=== PATIENT | male | born 1945 | race Caucasian/White ===

== ENCOUNTER 2016-08-30 19:49 | Inpatient (IN) | payer OTHER, MEDICAID ==
[~2016-08-30] VITALS: Ht 162.6 cm; Wt 56.1 kg
[~2016-08-30 19:49] MED LIST: CANA1TAB2 PO; ESOM40CA PO; LEVO5TAB10 PO; LIDO5OI35 TP; NASO17 NASAL; SUCR1TAB56 PO; ZOF8 PO
[2016-08-30] MEDS ORDERED: SODIUM CHLORIDE 0.9% 1L BAG IV* STA (22:16)
[2016-08-30] MEDS ORDERED: CEFEPIME 2GM/50 ML (PMX) 50 ML IVPB STA (22:16)
[2016-08-30] MEDS ORDERED: ONDANSETRON 4 MG INJ IV STA (22:16)
[2016-08-30] MEDS ORDERED: VANCOMYCIN 1 GM (PMX) 250 ML IVPB ONE (22:30)
[2016-08-30 22:48] VITALS: TEMP 99.8
[2016-08-30 22:59] LABS: ADD UMIC YES; URINE BILIRUBIN (Dip) NEGATIVE (NEGATIVE); URINE BLOOD (Dip) 2+ (NEGATIVE); URINE COLOR LT. YELLOW (YELLOW); URINE GLUCOSE (Dip) >=1000 % (NEGATIVE); URINE KETONES (Dip) NEGATIVE (NEGATIVE); URINE LEUKOCYTE ESTERASE (Dip) NEGATIVE (NEGATIVE); URINE NITRITE (Dip) NEGATIVE (NEGATIVE); URINE TOTAL PROTEIN (Dip) 1+ (NEGATIVE); URINE UROBILINOGEN (Dip) 0.2 E.U./dL (0.1-1.0)
[2016-08-30 23:06] LABS: ALBUMIN 3.6 g/dl (3.3-4.9)
[2016-08-30 23:07] LABS: CHLORIDE 92 mmol/L (97-110); POTASSIUM 4.4 mmol/L (3.5-5.1); SODIUM 129 mmol/L (135-144)
[2016-08-30 23:09] LABS: ANION GAP 18 (8-16); BILIRUBIN,INDIRECT 0.6 mg/dl (0-1.1); BILIRUBIN,TOTAL 0.6 mg/dl (0.2-1.3); CARBON DIOXIDE 23 mmol/L (21-31); INR 1.27; PT RATIO 1.3
[2016-08-30 23:10] LABS: ALANINE AMINOTRANSFERASE 32 IU/L (13-69); ALKALINE PHOSPHATASE 115 IU/L (42-121); ASPARTATE AMINO TRANSFERASE 38 IU/L (15-46); BLOOD UREA NITROGEN 22 mg/dl (7-20); CALCIUM 8.4 mg/dl (8.4-10.2); GLUCOSE 392 mg/dl (70-220); HEMATOCRIT 22.8 % (42.0-52.0); MEAN CORPUSCULAR HEMOGLOBIN 24.3 pg (29.0-33.0); MEAN CORPUSCULAR HGB CONC 30.7 g/dl (32.0-37.0); MEAN CORPUSCULAR VOLUME 79.2 fl (82.0-101.0); RED BLOOD COUNT 2.88 10^6/ul (4.70-6.10); RED CELL DISTRIBUTION WIDTH 26.1 % (11.5-14.5); UNCORRECTED WBC 12.2 10^3/ul (4.8-10.8)
[2016-08-30 23:12] LABS: SQUAMOUS EPITHELIAL CELL,UR OCCASIONAL
[2016-08-30 23:13] LABS: ALBUMIN/GLOBULIN RATIO 0.81
--- NOTE | 2016-08-30 23:18 | RADRPT ---
PROCEDURE: XR Chest. CLINICAL INDICATION: Shortness of breath. TECHNIQUE: Single frontal view. COMPARISON: 12/18/2015. FINDINGS: There is chronic bilateral interstitial pulmonary disease as seen on 12/18/2015. There is new atele ctasis at the lung bases. The heart is mildly enlarged. There is no pleural effusion. There is no pneumothorax. IMPRESSION: 1. Chronic bilateral interstitial pulmonary disease. 2. New bibasilar atelectasis. 3. Cardiomegaly. RPTAT: QQ .Duc Whitt MD, MD Date Time Electronically viewed and signed by .Duc Whitt MD, MD on 08/30/2016 23:18 .R/
[2016-08-30 23:22] LABS: TROPONIN-I < 0.012 ng/ml (0.00-0.12)
[2016-08-30 23:47] LABS: CONDITION 1; LH ANALYZER COMMENTS 1; MEAN PLATELET VOLUME 7.5 fl (7.4-10.4); SUSPECT 1
[2016-08-30 23:50] LABS: PLATELET COUNT 22 10^3/UL (140-440)
[2016-08-31] VITALS (12 sets, daily range): BP systolic 102–138; BP diastolic 51–63; PULSE 68–105; RESP 15–88; Ht 162.6 cm; Wt 56.1 kg
[2016-08-31] MEDS ORDERED: FUROSEMIDE 40 MG INJ IV STA (00:25)
[2016-08-31] MEDS ORDERED: ONDANSETRON 4 MG INJ IV PRN (01:00)
[2016-08-31] MEDS ORDERED: ACETAMINOPHEN 325 MG TAB PO PRN (01:00)
[2016-08-31] MEDS ORDERED: NACL 0.9% 3 ML SYG IV SCH (01:30)
[2016-08-31] MEDS ORDERED: ONDANSETRON 4 MG TAB PO PRN (01:30)
[2016-08-31] MEDS ORDERED: GLUCAGON 1 MG INJ IM PRN (02:00)
[2016-08-31] MEDS ORDERED: GLUCOSE GEL 15 GRAM TUBE PO PRN ×2 (02:00)
[2016-08-31] MEDS ORDERED: GLUCOSE GEL 15 GRAM TUBE BUCCAL PRN (02:00)
[2016-08-31] MEDS ORDERED: DEXTROSE 50% 50 ML SYRINGE IV PRN ×2 (02:00)
[2016-08-31] MEDS ORDERED: FUROSEMIDE 20 MG INJ IV ONE (08:00)
[2016-08-31] MEDS ORDERED: FLUTICASONE 0.05% 16 GM NAS SPRAY NASAL SCH (09:00)
[2016-08-31] MEDS ORDERED: NON-FORMULARY/PATIENT OWN MED (Mometasone Furoate* (Nasonex*) 1 SPRAY) NASAL SCH (09:00)
[2016-08-31] MEDS: SUCRALFATE 1 GM TAB PO SCH ×4 (09:14→20:38)
[2016-08-31] MEDS: FLUTICASONE 0.05% 16 GM NAS SPRAY NASAL SCH (09:16)
[2016-08-31] MEDS: LIDOCAINE 5% 35 GM OINT TOP SCH ×3 (09:18→20:39)
--- NOTE | 2016-08-31 10:20 | HP ---
Date/Time of Note Date/Time of Note DATE: 08/31/16 TIME: 10:15 Assessment/Plan VTE Prophylaxis VTE Prophylaxis Intervention: SCD's Lines/Catheters Urinary Cath still in place: No Assessment/Plan Assessment/Plan [facility] 1. 71-year-old man, well-known to me from previous hospitalization, who presented with two days of nausea, emesis, fever, dizziness and dehydration. He had a similar presentation with symptomatic anemia two months ago, attributable to his known chronic myelomonocytic leukemia, and he has had multiple episodes of similar severe anemia presentations requiring transfusion. Labs today showed severe thrombocytopenia (22k/ul), but without active bleeding. * Transfused today with the first of two units of packed red blood cells, with 20 mg of Lasix in between the two units. 2. Diabetes mellitus, with associated neuropathy manifest by numbness in both feet. Previous clinical suspicion for diabetic gastroparesis. He has moderate hyperglycemia this time, for reasons unclear. No solis source of infection identified, and he has no fever or leukocytosis. * Continue metformin * Hemoglobin A1c pending * Lantus insulin this morning 12-units, repeat at bedtime tonight once record of sugars is available * Preprandial Novolog 5-units to start * Zofran as needed 3. Mild hyponatremia (129) * Normal saline rehydration 4. Chronic benign positional vertigo. * Meclizine PRN 5. Gastroesophageal reflux disease. * Protonix * Cepachol lozenges 6. Prophylaxis. Sequential compression devices to lower extremity for DVT prevention 7. DISPOSITION: Place under medical/surgical observation for transfusion. Discharge planning for tomorrow. Flex Verde MD PhD [phone] HPI/ROS Admit Date/Time Admit Date/Time Aug 31, 2016 at 00:38 Hx of Present Illness DATE OF ADMISSION: 08/30/2016 PRIMARY CARE PHYSICIAN: Dr. Rona Castro. PRIMARY ONCOLOGIST: Иван Gallegos MD CHIEF COMPLAINT ON ADMISSION: Abnormal hemoglobin and dizziness. HISTORY OF PRESENT ILLNESS: 71-year-old man with diabetes and chronic myelomonocytic leukemia under active treatment who presented last night for dizziness. He has had multiple similar presentations for severe anemia, most recently in May and June. For the past two days he has had difficultly eating or drinking, with nausea and emesis. During his last hospitalization, there was a clinical suspicion of diabetic gastroparesis. In early June he was admitted with similar symptoms and given 3 units of packed red blood cells with hemoglobin up to 10 at the time of discharge home. He complained of sore throat today, with some difficulty swallowing but no coughing or choking. He denied any headache, visual change, chest pain, persistent nausea, or abdominal pain. ALLERGIES: NO KNOWN ALLERGIES. PAST MEDICAL HISTORY: 1. Chronic myelomonocytic leukemia, currently on chemotherapy. 2. Pancytopenia and anemia secondary to #1. 3. Diabetes mellitus. 4. Diabetic neuropathy. 5. Diabetic gastroparesis. 6. Chronic benign positional vertigo which is exacerbated when he is severely anemic. 7. Hypertension. PAST SURGICAL HISTORY: None except for bone marrow biopsy four months ago. SOCIAL HISTORY: The patient lives with family. No previous smoking history, or recent significant drinking. OUTPATIENT MEDICATIONS: 1. Nasonex 1 spray to each nostril b.i.d. 2. Nexium 40 mg p.o. daily. 3. Zofran 8 mg p.o. t.i.d. as needed for nausea, vomiting. 4. Carafate 1 g p.o. q.a.c. and at bedtime. 5. Invokamet one tab p.o. twice daily. 6. Lidocaine ointment t.i.d. as needed. 7. Zyzal 5 mg p.o. daily. ROS As above PMH/Family/Social Social History Smoking Status: Never smoker Exam/Review of Systems Vital Signs Vitals Vital Signs Date Time Temp Pulse Resp B/P Pulse Ox O2 Delivery O2 Flow Rate FiO2 08/31/16 08:09 68 08/31/16 04:00 99.0 08/31/16 03:55 15 102/52 98 08/31/16 02:47 Nasal Cannula 2.0 Intake and Output 08/30/16 08/30/16 08/31/16 15:00 23:00 07:00 Intake Total 250 ml Output Total 1600 ml Balance -1350 ml Exam Exam GENERAL: He appeared uncomfortable, serious, but breathing comfortably on room air. HEENT: Pupils were equal, round and reactive to light. Extraocular muscles are intact. Anicteric sclerae, with no scleritis/conjunctivitis. NECK: No JVD, no thyromegaly. HEART: Regular rate and rhythm. LUNGS: Clear to auscultation bilaterally. ABDOMEN: Soft, non-tender, non-distended. Bowel sounds are present. EXTREMITIES: No edema, clubbing or cyanosis. NEUROLOGIC: He was alert and oriented x3, cranial nerves, motor and light touch sensation all intact. Toes downgoing. SKIN: No rash evident Labs Result Diagram: 08/30/16222908/30/162229 Medications Medications Current Medications Lidocaine (Lidocaine 5% Oint) 1 applic TID TOP Last administered on 08/31/16 09 :18; Admin Dose 1 APPLIC; Start 08/31/16 at 09:00 Ondansetron HCl (Zofran Tab) 8 mg TID PRN PO NAUSEA AND/OR VOMITING; Start 08/31 at 01:30 Miscellaneous Information 1 ea NOTE XX ; Start 08/31/16 at 02:00 Glucose (Glutose) 15 gm Q15M PRN PO DECREASED GLUCOSE; Start 08/31/16 at 02:00 Glucose (Glutose) 22.5 gm Q15M PRN PO DECREASED GLUCOSE; Start 08/31/16 at 02:00 Dextrose (D50w Syringe) 25 ml Q15M PRN IV DECREASED GLUCOSE; Start 08/31/16 at 02:00 Dextrose (D50w Syringe) 50 ml Q15M PRN IV DECREASED GLUCOSE; Start 08/31/16 at 02:00 Glucagon (Glucagen) 1 mg Q15M PRN IM DECREASED GLUCOSE; Start 08/31/16 at 02:00 Glucose (Glutose) 15 gm Q15M PRN BUCCAL DECREASED GLUCOSE; Start 08/31/16 at 02: 00 Fluticasone Propionate (Flonase 0.05% Nasal) 2 spray DAILY NASAL Last administered on 08/31/16 09:16; Admin Dose 2 SPRAY; Start 08/31/16 at 09:00 Copies To: CC: ИВАН GALLEGOS MD, JOHN P. M.D. Aug 31, 2016 10:20 SYDNIE VERDE M.D. Aug 31, 2016 10:20
[2016-08-31] MEDS: ACCUCHECK XX SCH (23:36)
[2016-09-01] VITALS (12 sets, daily range): BP systolic 111–127; BP diastolic 58–62; PULSE 62–83; RESP 16–19
[2016-09-01] MEDS: INSULIN GLARGINE [LANtus] 3 ML PEN SC SCH ×2 (00:27→20:38)
[2016-09-01] MEDS: ACCUCHECK AT 2AM (Patients on SS coverage) XX SCH (01:00)
[2016-09-01 06:33] LABS: HEMATOCRIT 23.6 % (42.0-52.0); HEMOGLOBIN 7.6 g/dl (14.0-18.0); MEAN CORPUSCULAR HEMOGLOBIN 25.6 pg (29.0-33.0); MEAN CORPUSCULAR VOLUME 80.1 fl (82.0-101.0); RED BLOOD COUNT 2.95 10^6/ul (4.70-6.10); RED CELL DISTRIBUTION WIDTH 22.7 % (11.5-14.5); UNCORRECTED WBC 9.6 10^3/ul (4.8-10.8); WHITE BLOOD COUNT 9.6 10^3/ul (4.8-10.8)
[2016-09-01 06:40] LABS: MEAN PLATELET VOLUME 7.6 fl (7.4-10.4); PLATELET COUNT 15 10^3/UL (140-440)
[2016-09-01 06:41] LABS: CONDITION 1; LH ANALYZER COMMENTS 1; POTASSIUM 3.8 mmol/L (3.5-5.1)
[2016-09-01 06:44] LABS: CALCIUM 7.7 mg/dl (8.4-10.2); CREATININE 0.9 mg/dl (0.61-1.24)
[2016-09-01] MEDS: SUCRALFATE 1 GM TAB PO SCH ×4 (08:17→20:33)
[2016-09-01] MEDS: FLUTICASONE 0.05% 16 GM NAS SPRAY NASAL SCH (08:26)
[2016-09-01] MEDS: INSULIN ASPART [NOVOLOG] 3 ML PEN SC SCH ×3 (08:26→18:14)
[2016-09-01] MEDS: ACCUCHECK XX SCH ×4 (08:27→21:00)
[2016-09-01] MEDS: LIDOCAINE 5% 35 GM OINT TOP SCH ×3 (09:43→21:00)
[2016-09-01 10:47] LABS: BASOPHIL # 0.1 10^3/ul (0.0-0.1); LYMPHOCYTES # 2.5 10^3/ul (0.8-2.9); MONOCYTE # 3.5 10^3/ul (0.3-0.9); NEUTROPHIL # 1.3 10^3/ul (1.6-7.5)
[2016-09-01] MEDS: DIPHENHYDRAMINE 25 MG CAP PO PRN (11:25)
[2016-09-01] MEDS: ACETAMINOPHEN 325 MG TAB PO PRN (11:25)
--- NOTE | 2016-09-01 11:50 | PN ---
Date/Time of Note Date/Time of Note DATE: 09/01/16 TIME: 11:20 Assessment/Plan VTE Prophylaxis VTE Prophylaxis Intervention: SCD's Lines/Catheters Urinary Cath still in place: No Assessment/Plan Assessment/Plan 71-year-old man: 1. 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 Hb still low at 7.6 this AM, patient to get 2 additional units of pRBC 2. Thrombocytopenia also in setting of CMML: no acute bleeding, plts @ 15K today , would not transfuse unless <10K or acute bleeding. r/o hemolysis 3. Diabetes mellitus, with associated neuropathy manifest by numbness in both feet. Previous clinical suspicion for diabetic gastroparesis. He has moderate hyperglycemia this time, for reasons unclear. No solis source of infection identified, and he has no fever or leukocytosis. A1c Continue metformin SSI Zofran as needed 3. Mild hyponatremia: resolving up to 133, on NS 4. Chronic benign positional vertigo. Continue Meclizine PRN 5. Gastroesophageal reflux disease. Continue Protonix 6. URI with cough and sore throat: CXR stable on admission, symptomatic treatment Prophylaxis. Sequential compression devices to lower extremity for DVT prevention, PPI for GI ppx DISPOSITION: Discharge planning today after transfusion if stable Subjective 24 Hr Interval Summary Free Text/Dictation Patient doing OK Complaining of RUSSELL and sore throat from coughing Afebrile and getting pRBC this AM Exam/Review of Systems Vital Signs Vitals Vital Signs Date Time Temp Pulse Resp B/P Pulse Ox O2 Delivery O2 Flow Rate FiO2 09/01/16 08:17 83 09/01/16 08:00 Nasal Cannula 2.0 09/01/16 07:45 98.7 19 121/60 91 Intake and Output 08/31/16 08/31/16 09/01/16 15:00 23:00 07:00 Intake Total 650 ml 500 ml Output Total 950 ml 850 ml Balance -300 ml -350 ml Exam Constitutional: alert, oriented, other (mexican speaking ) Respiratory: clear to auscultation, normal air movement Cardiovascular: nl pulses, regular rate and rhythm Gastrointestinal: non-tender, soft Musculoskeletal: nl extremities to inspection Extremities: normal pulses, other (no edema, clubbing or cyanosis ) Neurological: SENIOR GENETIC COUNSELOR II-XII intact, nl mental status, nl speech, nl strength Results Result Diagram: 09/01/16 0550 09/01/16 0550 Results 24 hrs Laboratory Tests Test 08/31/16 12:26 08/31/16 15:15 08/31/16 23:30 09/01/16 05:50 Bedside Glucose 373 H 263 H Lactic Acid Level 1.2 Anion Gap 13 Basophils # 0.1 Basophils % 1.0 Blood Morphology Comment Blood Urea Nitrogen 17 Calcium Level 7.7 L Carbon Dioxide Level 26 Chloride Level 98 Creatinine 0.90 Differential Comment MANUAL DIFF Glucose Level 117 # Hematocrit 23.6 L Hemoglobin 7.6 L Lymphocytes # 2.5 Lymphocytes % 26.0 Mean Corpuscular Hemoglobin 25.6 L Mean Corpuscular Hemoglobin Concent 32.0 Mean Corpuscular Volume 80.1 L Mean Platelet Volume 7.6 Monocytes # 3.5 H Monocytes % 36.0 H Neutrophils # 1.3 L Neutrophils % 14.0 L Nucleated Red Blood Cells % 1.0 H Platelet Count 15 #*L Potassium Level 3.8 Reactive Lymphocytes % 23.0 Red Blood Count 2.95 L Red Cell Distribution Width 22.7 H Sodium Level 133 L White Blood Count 9.6 # Test 09/01/16 07:54 Bedside Glucose 114 Medications Medications Current Medications Lidocaine (Lidocaine 5% Oint) 1 applic TID TOP Last administered on 09/01/16t 09 :43; Admin Dose 1 APPLIC; Start 08/31/16 at 09:00 Miscellaneous Information 1 ea NOTE XX ; Start 08/31/16 at 02:00 Glucose (Glutose) 15 gm Q15M PRN PO DECREASED GLUCOSE; Start 08/31/16 at 02:00 Glucose (Glutose) 22.5 gm Q15M PRN PO DECREASED GLUCOSE; Start 08/31/16 at 02:00 Dextrose (D50w Syringe) 25 ml Q15M PRN IV DECREASED GLUCOSE; Start 08/31/16 at 02:00 Dextrose (D50w Syringe) 50 ml Q15M PRN IV DECREASED GLUCOSE; Start 08/31/16 at 02:00 Glucagon (Glucagen) 1 mg Q15M PRN IM DECREASED GLUCOSE; Start 08/31/16 at 02:00 Glucose (Glutose) 15 gm Q15M PRN BUCCAL DECREASED GLUCOSE; Start 08/31/16 at 02: 00 Fluticasone Propionate (Flonase 0.05% Nasal) 2 spray DAILY NASAL Last administered on 09/01/16 08:26; Admin Dose 2 SPRAY; Start 08/31/16 at 09:00 Diagnostic Test (Pha) (Accucheck) 1 ea 02 XX ; Start 09/01/16 at 02:00 Insulin Glargine (Lantus) 18 unit QHS SC Last administered on 09/01/16 00:27; Admin Dose 18 UNIT; Start 09/01/16 at 00:00 Ondansetron HCl (Zofran Inj) 4 mg Q6H PRN IV NAUSEA AND/OR VOMITING; Start 09/01 at 11:30 Acetaminophen (Tylenol Tab) 650 mg Q6H PRN PO PAIN AND OR ELEVATED TEMP; Start 09/01/16 at 11:30 Diphenhydramine HCl (Benadryl) 25 mg Q6H PRN PO ITCHING; Start 09/01/16 at 11:30 TAM ROSE Sep 01, 2016 11:32
--- NOTE | 2016-09-01 11:52 | PDOCDIS ---
Discharge Instructions CONDITION Patient Condition: Stable HOME CARE INSTRUCTIONS: Special Diet: CARB CONTROLLED ACTIVITY: Activity Restrictions: Slowly Increase Activity FOLLOW UP/APPOINTMENTS Appointments Follow up with PCP in 1 week Follow up with Oncology within 1 to 2 weeks TAM ROSE Sep 01, 2016 11:52
[2016-09-01 19:35] LABS: ALBUMIN 2.9 g/dl (3.3-4.9)
[2016-09-01 19:37] LABS: BILIRUBIN,INDIRECT 1.3 mg/dl (0-1.1); BILIRUBIN,TOTAL 1.3 mg/dl (0.2-1.3)
[2016-09-01 22:22] LABS: FIBRIN SPLIT PRODUCT <10 ug/ml (<10)
[2016-09-02] VITALS (10 sets, daily range): BP systolic 114–127; BP diastolic 60–75; PULSE 62–85; RESP 16–20
[2016-09-02] MEDS: ACCUCHECK AT 2AM (Patients on SS coverage) XX SCH (02:00)
[2016-09-02 06:56] LABS: HEMATOCRIT 30.9 % (42.0-52.0); HEMOGLOBIN 9.9 g/dl (14.0-18.0); MEAN CORPUSCULAR HEMOGLOBIN 26.2 pg (29.0-33.0); MEAN CORPUSCULAR HGB CONC 32.1 g/dl (32.0-37.0); MEAN CORPUSCULAR VOLUME 81.7 fl (82.0-101.0); RED BLOOD COUNT 3.78 10^6/ul (4.70-6.10); RED CELL DISTRIBUTION WIDTH 20.2 % (11.5-14.5); UNCORRECTED WBC 11.3 10^3/ul (4.8-10.8); WHITE BLOOD COUNT 11.3 10^3/ul (4.8-10.8)
[2016-09-02 07:11] LABS: MEAN PLATELET VOLUME 7.9 fl (7.4-10.4)
[2016-09-02 07:12] LABS: CONDITION 1; LH ANALYZER COMMENTS 1; SUSPECT 1
[2016-09-02 07:14] LABS: PLATELET COUNT 13 10^3/UL (140-440)
[2016-09-02 07:15] LABS: WHITE BLOOD COUNT 12.2 10^3/ul (4.8-10.8)
[2016-09-02] MEDS: SUCRALFATE 1 GM TAB PO SCH ×4 (08:00→20:57)
[2016-09-02] MEDS: ACCUCHECK XX SCH ×4 (08:04→21:00)
[2016-09-02] MEDS: FLUTICASONE 0.05% 16 GM NAS SPRAY NASAL SCH (08:41)
[2016-09-02 09:44] LABS: BASOPHIL # 0.1 10^3/ul (0.0-0.1); LYMPHOCYTES # 2.4 10^3/ul (0.8-2.9); MONOCYTE # 3.7 10^3/ul (0.3-0.9); MYELOCYTES # 0.1; NEUTROPHIL # 2.1 10^3/ul (1.6-7.5)
[2016-09-02 09:45] LABS: PLATELET ESTIMATE PLT APPEAR DECREASED
[2016-09-02] MEDS ORDERED: AZITHROMYCIN 250 MG TAB PO ONE (10:00)
[2016-09-02] MEDS: LIDOCAINE 5% 35 GM OINT TOP SCH ×3 (10:25→21:05)
[2016-09-02] MEDS: INSULIN ASPART [NOVOLOG] 3 ML PEN SC SCH ×3 (10:30→18:00)
[2016-09-02] MEDS: ACETAMINOPHEN 325 MG TAB PO PRN ×2 (11:06→20:58)
--- NOTE | 2016-09-02 11:33 | PN ---
Date/Time of Note Date/Time of Note DATE: 09/02/16 TIME: 11:23 Assessment/Plan VTE Prophylaxis VTE Prophylaxis Intervention: SCD's Lines/Catheters Urinary Cath still in place: No Assessment/Plan Assessment/Plan 71-year-old man: 1. 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 Hb now up to 9.4 post 4 units pRBC but patent noted to be severely thrombocytopenic which is new and 17% blast on peripheral smear .. Dr Ruiz consulted 2. Thrombocytopenia also in setting of CMML but also now finding of 17% blast on peripheral smear No acute bleeding but ongoing RUSSELL with plts @ 13K today, Check stat CT head and transfuse platelets if needed. R/o hemolysis and Hematology c/s pending 3. Diabetes mellitus, with associated neuropathy manifest by numbness in both feet. Previous clinical suspicion for diabetic gastroparesis. He has moderate hyperglycemia this time, for reasons unclear. No solis source of infection identified, and he has no fever or leukocytosis. A1c Continue Lantus and SSI, will resume Metformin as patient tolerating po well Zofran as needed 3. Mild hyponatremia: resolving up to 133, on NS, check labs in AM 4. Chronic benign positional vertigo. Continue Meclizine PRN 5. Gastroesophageal reflux disease. Continue Protonix 6. URI with cough and sore throat: CXR stable on admission, symptomatic treatment , Azithromycin while awaiting CT head results Prophylaxis. Sequential compression devices to lower extremity for DVT prevention, PPI for GI ppx DISPOSITION: CT head stat and Hematology consult pending Subjective 24 Hr Interval Summary Free Text/Dictation Patient complaining of RUSSELL still and given Low platelets, Ct head pending and will also get [address] Ruiz consulted as patient with now severe thrombocytopenia on this admission and 17% blasts noted on peripheral smear today Exam/Review of Systems Vital Signs Vitals Vital Signs Date Time Temp Pulse Resp B/P Pulse Ox O2 Delivery O2 Flow Rate FiO2 09/02/16 08:05 71 09/02/16 08:00 Nasal Cannula 2.0 09/02/16 03:40 99.6 18 118/60 95 Intake and Output 09/01/16 09/01/16 09/02/16 15:00 23:00 07:00 Intake Total 600 ml 850 ml Output Total 950 ml 1100 ml Balance -350 ml -250 ml Exam Constitutional: alert, oriented, well developed Respiratory: clear to auscultation, normal air movement Cardiovascular: nl pulses, regular rate and rhythm Gastrointestinal: non-tender, soft Musculoskeletal: nl extremities to inspection, other (no edema, clubbing or cyanosis ) Extremities: normal pulses Neurological: DIRECTOR OPERATIONS II-XII intact, nl mental status, nl speech, other ( generalised weakness ) Results Result Diagram: 09/02/16 0607 09/01/16 0550 Results 24 hrs Laboratory Tests Test 09/01/16 12:17 09/01/16 18:04 09/01/16 19:15 09/01/16 20:32 Bedside Glucose 153 123 204 Alanine Aminotransferase (ALT/SGPT) 47 Albumin 2.9 L Alkaline Phosphatase 101 Aspartate Amino Transf (AST/SGOT) 64 #H Direct Bilirubin 0.00 Fibrinogen 631.0 H Indirect Bilirubin 1.3 H Plasma Fibrin Degradation Products <10 Total Bilirubin 1.3 Total Protein 7.0 # Test 09/02/16 06:07 09/02/16 08:02 09/02/16 10:28 Band Neutrophils % 8.0 H Basophils # 0.1 Basophils % 1.0 Blast Cells % 17.0 H Blastocytes # 1.9 Blood Morphology Comment Eosinophils # Eosinophils % Hematocrit 30.9 #L Hemoglobin 9.9 #L Lymphocytes # 2.4 Lymphocytes % 21.0 Mean Corpuscular Hemoglobin 26.2 L Mean Corpuscular Hemoglobin Concent 32.1 Mean Corpuscular Volume 81.7 L Mean Platelet Volume 7.9 Monocytes # 3.7 H Monocytes % 33.0 H Myelocytes # 0.1 Myelocytes % 1.0 H Neutrophils # 2.1 Neutrophils % 19.0 L Nucleated Red Blood Cells # Nucleated Red Blood Cells % 8.0 H Platelet Count 13 *L Platelet Estimate PLT APPEAR DECREASED Red Blood Count 3.78 #L Red Cell Distribution Width 20.2 H White Blood Count 11.3 H Bedside Glucose 189 288 H Medications Medications Current Medications Lidocaine (Lidocaine 5% Oint) 1 applic TID TOP Last administered on 09/02/16t 10:25; Admin Dose 1 APPLIC; Start 08/31/16 at 09:00 Miscellaneous Information 1 ea NOTE XX ; Start 08/31/16 at 02:00 Glucose (Glutose) 15 gm Q15M PRN PO DECREASED GLUCOSE; Start 08/31/16 at 02:00 Glucose (Glutose) 22.5 gm Q15M PRN PO DECREASED GLUCOSE; Start 08/31/16 at 02:00 Dextrose (D50w Syringe) 25 ml Q15M PRN IV DECREASED GLUCOSE; Start 08/31/16 at 02:00 Dextrose (D50w Syringe) 50 ml Q15M PRN IV DECREASED GLUCOSE; Start 08/31/16 at 02:00 Glucagon (Glucagen) 1 mg Q15M PRN IM DECREASED GLUCOSE; Start 08/31/16 at 02:00 Glucose (Glutose) 15 gm Q15M PRN BUCCAL DECREASED GLUCOSE; Start 08/31/16 at 02: 00 Fluticasone Propionate (Flonase 0.05% Nasal) 2 spray DAILY NASAL Last administered on 09/02/16 08:41; Admin Dose 2 SPRAY; Start 08/31/16 at 09:00 Diagnostic Test (Pha) (Accucheck) 1 ea 02 XX ; Start 09/01/16 at 02:00 Insulin Glargine (Lantus) 18 unit QHS SC Last administered on 09/01/16 20:38; Admin Dose 18 UNIT; Start 09/01/16 at 00:00 Ondansetron HCl (Zofran Inj) 4 mg Q6H PRN IV NAUSEA AND/OR VOMITING; Start 09/01 at 11:30 Acetaminophen (Tylenol Tab) 650 mg Q6H PRN PO PAIN AND OR ELEVATED TEMP Last administered on 09/02/16 11:06; Admin Dose 650 MG; Start 09/01/16 at 11:30 Diphenhydramine HCl (Benadryl) 25 mg Q6H PRN PO ITCHING Last administered on 11:25; Admin Dose 25 MG; Start 09/01/16 at 11:30 TAM ROSE Sep 02, 2016 11:33
--- NOTE | 2016-09-02 13:17 | RADRPT ---
PROCEDURE: CT Head without. CLINICAL INDICATION: Headache, low platelets. Evaluate for possible intracranial hemorrhage. TECHNIQUE: The study was performed utilizing a multi-slice, multidetector CT scanner. Direct spira l 1 mm axial sections were obtained through the head without the use of intravenous contrast materia l. Coronal and sagittal reformats were obtained. The images were reviewed on a PACS workstation. RADIATION DOSE: CTDIvol: 44.9 mGyDLP: 630.2 mGy-cm COMPARISON: 12/18/2015 FINDINGS: There is no intracranial hemorrhage, extra-axial fluid collection, mass lesion, midline shift or hyd rocephalus. There is mild prominence of the cerebral sulci, lateral and third ventricles. There is mild periventricular and subcortical white matter hypodensity. There is mild arteriosclerotic calc ification of the parasellar internal carotid arteries. The armas-white matter differentiation is pre served. The basal cisterns are patent. The midline structures are intact. There is bilateral apha linda. There is pneumatization bilateral petrous apices without evidence of inflammatory changes, nor mal variant. The orbits, calvarium and extracranial soft tissues are normal in appearance. The visu alized paranasal sinuses, mastoid air cells and middle ear cavities are normally aerated. IMPRESSION: 1. No acute intracranial abnormality. No intracranial hemorrhage, extra-axial fluid collection, ma ss lesion or hydrocephalous. 2. Mild peripheral and central cerebral volume loss. 3. Mild periventricular and subcortical white matter hypodensity, likely related to chronic microan giopathic changes. RPTAT: HGAS .Tray Vazquez MD, MD Date Time Electronically viewed and signed by .Tray Vazquez MD, MD on 09/02/2016 13:17 .S/
[2016-09-02] MEDS ORDERED: SOD CHLORIDE 0.9% 250 ML IV* ONE (13:59)
[2016-09-02] MEDS: GUAIFENESIN/DM 5ML CUP PO PRN ×2 (14:35→21:00)
--- NOTE | 2016-09-02 14:49 | CONS ---
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 I spoke with Dr. Gallegos patient's primary oncologist who is aware of patient's peripheral blood findings. For now the plan is to attempt to resume Vidaza treatment as an out patient and to transfuse as needed. Problems: Additional Assessment/Plan -will transfuse 1 units of platelets -check flow cytometry on peripheral blood -pt to resume chemotherapy with Vidaza as an outpatient Approximately 40 min were spent at patient's bedside and in coordination of his care Consultation Date/Type/Reason Admit Date/Time Aug 31, 2016 at 00:38 Date of Consultation: Sep 02, 2016 Type of Consultation: Hematology Reason for Consultation CMML Referring Provider: TAM ROSE Hx of Present Illness 71 yo male with a diagnosis of CMML. Pt is currently being treated by Dr. Иван Gallegos and most recently received Vidaza IV therapy last June 2016. Pt is known to have blasts in the peripheral blood given his high risk disease. He is currently transfusion dependant. He now presents with nausea, emesis, fever, dizziness and dehydration. On admission he was found to have a Hg 9 and platelets of 23. Pt has since received 4 units of PRBCs and is to receive 1 units of platelets today. Constitutional: poor po Respiratory: shortness of breath Cardiovascular: no complaints Gastrointestinal: decreased appetite, nausea Genitourinary: no complaints Musculoskeletal: no complaints Skin: no complaints Neurologic: no complaints Past Medical History DM GERD BPV Past Surgical History Past Surgical Hx: no surgical history Family History Significant Family History: no pertinent family hx Social History Alcohol Use: none Smoking Status: Never smoker Drug Use: none Exam/Review of Systems Vital Signs Vitals Vital Signs Date Time Temp Pulse Resp B/P Pulse Ox O2 Delivery O2 Flow Rate FiO2 09/02/16 12:25 85 09/02/16 12:11 97.9 18 114/66 97 09/02/16 08:00 Nasal Cannula 2.0 Intake and Output 09/01/16 09/01/16 09/02/16 15:00 23:00 07:00 Intake Total 600 ml 850 ml Output Total 950 ml 1100 ml Balance -350 ml -250 ml Exam Constitutional: alert Psych: no complaints Head: atraumatic, normocephalic Eyes: nl conjunctiva ENMT: nl external ears & nose Neck: non-tender, supple Respiratory: clear to auscultation, normal air movement Cardiovascular: nl pulses, regular rate and rhythm Gastrointestinal: nl liver, spleen, soft Genitourinary - Male: nl penis Musculoskeletal: nl extremities to inspection, nl gait and stance Extremities: normal pulses Results Result Diagram: 09/02/16 0607 09/01/16 0550 Results 24 hrs Laboratory Tests Test 09/01/16 18:04 09/01/16 19:15 09/01/16 20:32 09/02/16 06:07 Bedside Glucose 123 204 Alanine Aminotransferase (ALT/SGPT) 47 Albumin 2.9 L Alkaline Phosphatase 101 Aspartate Amino Transf (AST/SGOT) 64 #H Direct Bilirubin 0.00 Fibrinogen 631.0 H Indirect Bilirubin 1.3 H Plasma Fibrin Degradation Products <10 Total Bilirubin 1.3 Total Protein 7.0 # Band Neutrophils % 8.0 H Basophils # 0.1 Basophils % 1.0 Blast Cells % 17.0 H Blastocytes # 1.9 Blood Morphology Comment Eosinophils # Eosinophils % Hematocrit 30.9 #L Hemoglobin 9.9 #L Lymphocytes # 2.4 Lymphocytes % 21.0 Mean Corpuscular Hemoglobin 26.2 L Mean Corpuscular Hemoglobin Concent 32.1 Mean Corpuscular Volume 81.7 L Mean Platelet Volume 7.9 Monocytes # 3.7 H Monocytes % 33.0 H Myelocytes # 0.1 Myelocytes % 1.0 H Neutrophils # 2.1 Neutrophils % 19.0 L Nucleated Red Blood Cells # Nucleated Red Blood Cells % 8.0 H Platelet Count 13 *L Platelet Estimate PLT APPEAR DECREASED Red Blood Count 3.78 #L Red Cell Distribution Width 20.2 H White Blood Count 11.3 H Test 09/02/16 08:02 09/02/16 10:28 09/02/16 11:40 Bedside Glucose 189 288 H 239 H Medications Medications Current Medications Lidocaine (Lidocaine 5% Oint) 1 applic TID TOP Last administered on 09/02/16t 10:25; Admin Dose 1 APPLIC; Start 08/31/16 at 09:00 Miscellaneous Information 1 ea NOTE XX ; Start 08/31/16 at 02:00 Glucose (Glutose) 15 gm Q15M PRN PO DECREASED GLUCOSE; Start 08/31/16 at 02:00 Glucose (Glutose) 22.5 gm Q15M PRN PO DECREASED GLUCOSE; Start 08/31/16 at 02:00 Dextrose (D50w Syringe) 25 ml Q15M PRN IV DECREASED GLUCOSE; Start 08/31/16 at 02:00 Dextrose (D50w Syringe) 50 ml Q15M PRN IV DECREASED GLUCOSE; Start 08/31/16 at 02:00 Glucagon (Glucagen) 1 mg Q15M PRN IM DECREASED GLUCOSE; Start 08/31/16 at 02:00 Glucose (Glutose) 15 gm Q15M PRN BUCCAL DECREASED GLUCOSE; Start 08/31/16 at 02: 00 Fluticasone Propionate (Flonase 0.05% Nasal) 2 spray DAILY NASAL Last administered on 09/02/16 08:41; Admin Dose 2 SPRAY; Start 08/31/16 at 09:00 Diagnostic Test (Pha) (Accucheck) 1 ea 02 XX ; Start 09/01/16 at 02:00 Insulin Glargine (Lantus) 18 unit QHS SC Last administered on 09/01/16 20:38; Admin Dose 18 UNIT; Start 09/01/16 at 00:00 Ondansetron HCl (Zofran Inj) 4 mg Q6H PRN IV NAUSEA AND/OR VOMITING; Start 09/01 at 11:30 Acetaminophen (Tylenol Tab) 650 mg Q6H PRN PO PAIN AND OR ELEVATED TEMP Last administered on 09/02/16 11:06; Admin Dose 650 MG; Start 09/01/16 at 11:30 Diphenhydramine HCl (Benadryl) 25 mg Q6H PRN PO ITCHING Last administered on 11:25; Admin Dose 25 MG; Start 09/01/16 at 11:30 Guaifenesin/ Dextromethorphan (Robitussin Dm Liquid Cup) 10 ml Q4H PRN PO COUGH ; Start 09/02/16 at 14:00 MISHA FOREMAN M.D. Sep 02, 2016 14:48
[2016-09-02] MEDS: INSULIN GLARGINE [LANtus] 3 ML PEN SC SCH (21:10)
[2016-09-03] VITALS (10 sets, daily range): BP systolic 120–135; BP diastolic 61–66; PULSE 60–78; RESP 18–20
[2016-09-03] MEDS: ACCUCHECK AT 2AM (Patients on SS coverage) XX SCH (02:00)
[2016-09-03 06:30] LABS: HEMATOCRIT 27.9 % (42.0-52.0); HEMOGLOBIN 8.9 g/dl (14.0-18.0); MEAN CORPUSCULAR HEMOGLOBIN 26.3 pg (29.0-33.0); MEAN CORPUSCULAR HGB CONC 32.1 g/dl (32.0-37.0); MEAN PLATELET VOLUME 7.3 fl (7.4-10.4); PLATELET COUNT 97 10^3/UL (140-440); RED CELL DISTRIBUTION WIDTH 20.3 % (11.5-14.5)
[2016-09-03 06:44] LABS: CONDITION 1; LH ANALYZER COMMENTS 1; SUSPECT 1
[2016-09-03 07:05] LABS: ALBUMIN 2.9 g/dl (3.3-4.9); POTASSIUM 4.1 mmol/L (3.5-5.1)
[2016-09-03 07:07] LABS: CREATININE 0.65 mg/dl (0.61-1.24)
[2016-09-03 07:08] LABS: ALBUMIN/GLOBULIN RATIO 0.72; BILIRUBIN,INDIRECT 0.5 mg/dl (0-1.1); BILIRUBIN,TOTAL 0.5 mg/dl (0.2-1.3); CALCIUM 8.3 mg/dl (8.4-10.2); TOTAL PROTEIN 6.9 g/dl (6.1-8.1)
[2016-09-03 07:11] LABS: MAGNESIUM 2.4 mg/dl (1.7-2.5); PHOSPHORUS 2.9 mg/dl (2.5-4.9)
[2016-09-03] MEDS: INSULIN ASPART [NOVOLOG] 3 ML PEN SC SCH ×3 (07:37→17:18)
[2016-09-03] MEDS: ACCUCHECK XX SCH ×4 (07:37→20:52)
[2016-09-03] MEDS: SUCRALFATE 1 GM TAB PO SCH ×4 (07:37→20:34)
[2016-09-03 07:40] LABS: ANISOCYTOSIS 2+; BASOPHIL # 0.2 10^3/ul (0.0-0.1); HYPOCHROMASIA 2+; LYMPHOCYTES # 2.4 10^3/ul (0.8-2.9); MONOCYTE # 4.6 10^3/ul (0.3-0.9); MYELOCYTES # 0.1; NEUTROPHIL # 1.2 10^3/ul (1.6-7.5)
[2016-09-03] MEDS: LIDOCAINE 5% 35 GM OINT TOP SCH (09:00)
--- NOTE | 2016-09-03 09:09 | CONS ---
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 I spoke with Dr. Gallegos patient's primary oncologist who is aware of patient's peripheral blood findings. For now the plan is to attempt to resume Vidaza treatment as an out patient and to transfuse as needed. Problems: Additional Assessment/Plan -s/p 1 units of platelets 09/02/16 -pending flow cytometry on peripheral blood -will order BMBx to be done to confirm blast count, plan for BMBx to be done tomorrow by IR. ELKINS after midnight -If > 20% blasts, will consider induction chemotherapy with 7+3 vs. vidaza Problems: Consultation Date/Type/Reason Admit Date/Time Aug 31, 2016 at 00:38 Initial Consult Date 09/02/16 Type of Consultation: Hematology/Oncology Referring Provider: TAM ROSE 24 HR Interval Summary Free Text/Dictation Patient continues to have a cough, and complaints of poor appetite. CXR 08/30/16 only shows chronic bilateral interstitial pulmonary disease and bibasilar atelectasis. Exam/Review of Systems Vital Signs Vitals Vital Signs Date Time Temp Pulse Resp B/P Pulse Ox O2 Delivery O2 Flow Rate FiO2 09/03/16 08:08 65 09/03/16 07:38 97.8 18 132/65 98 09/03/16 01:26 Nasal Cannula 2.0 Intake and Output 09/02/16 09/02/16 09/03/16 15:00 23:00 07:00 Intake Total 950 ml 1452 ml Output Total 107 ml 1200 ml Balance 843 ml 252 ml Exam Constitutional: alert Psych: no complaints Head: atraumatic, normocephalic Eyes: nl conjunctiva ENMT: nl external ears & nose Neck: non-tender, supple Respiratory: clear to auscultation, normal air movement Cardiovascular: nl pulses, regular rate and rhythm Gastrointestinal: nl liver, spleen, soft Genitourinary - Male: nl penis Musculoskeletal: nl extremities to inspection, nl gait and stance Extremities: normal pulses Results Result Diagram: 09/03/16 0600 09/03/16 0600 Results 24 hrs Laboratory Tests Test 09/02/16 10:28 09/02/16 11:40 09/02/16 17:49 09/02/16 21:04 Bedside Glucose 288 H 239 H 150 258 H Test 09/03/16 02:34 09/03/16 06:00 09/03/16 07:35 Bedside Glucose 182 99 Alanine Aminotransferase (ALT/SGPT) 48 Albumin 2.9 L Albumin/Globulin Ratio 0.72 Alkaline Phosphatase 98 Anion Gap 11 Anisocytosis 2+ Aspartate Amino Transf (AST/SGOT) 42 Band Neutrophils % 4.0 Basophils # 0.2 H Basophils % 2.0 Blast Cells % 18.0 H Blastocytes # 2.0 Blood Morphology Comment Blood Urea Nitrogen 10 Calcium Level 8.3 L Carbon Dioxide Level 29 Chloride Level 100 Creatinine 0.65 Differential Comment MANUAL DIFF Direct Bilirubin 0.00 Eosinophils # Eosinophils % Globulin 4.00 H Glucose Level 106 Hematocrit 27.9 L Hemoglobin 8.9 L Hypochromasia 2+ Indirect Bilirubin 0.5 Lymphocytes # 2.4 Lymphocytes % 22.0 Magnesium Level 2.4 Mean Corpuscular Hemoglobin 26.3 L Mean Corpuscular Hemoglobin Concent 32.1 Mean Corpuscular Volume 82.0 Mean Platelet Volume 7.3 L Monocytes # 4.6 H Monocytes % 42.0 H Myelocytes # 0.1 Myelocytes % 1.0 H Neutrophils # 1.2 L Neutrophils % 11.0 L Nucleated Red Blood Cells # Nucleated Red Blood Cells % Phosphorus Level 2.9 Platelet Count 97 #L Potassium Level 4.1 Red Blood Count 3.40 L Red Cell Distribution Width 20.3 H Sodium Level 136 Total Bilirubin 0.5 Total Protein 6.9 White Blood Count 11.0 H Medications Medications Current Medications Lidocaine (Lidocaine 5% Oint) 1 applic TID TOP Last administered on 09/02/16t 21:05; Admin Dose 1 APPLIC; Start 08/31/16 at 09:00 Miscellaneous Information 1 ea NOTE XX ; Start 08/31/16 at 02:00 Glucose (Glutose) 15 gm Q15M PRN PO DECREASED GLUCOSE; Start 08/31/16 at 02:00 Glucose (Glutose) 22.5 gm Q15M PRN PO DECREASED GLUCOSE; Start 08/31/16 at 02:00 Dextrose (D50w Syringe) 25 ml Q15M PRN IV DECREASED GLUCOSE; Start 08/31/16 at 02:00 Dextrose (D50w Syringe) 50 ml Q15M PRN IV DECREASED GLUCOSE; Start 08/31/16 at 02:00 Glucagon (Glucagen) 1 mg Q15M PRN IM DECREASED GLUCOSE; Start 08/31/16 at 02:00 Glucose (Glutose) 15 gm Q15M PRN BUCCAL DECREASED GLUCOSE; Start 08/31/16 at 02: 00 Fluticasone Propionate (Flonase 0.05% Nasal) 2 spray DAILY NASAL Last administered on 09/02/16 08:41; Admin Dose 2 SPRAY; Start 08/31/16 at 09:00 Diagnostic Test (Pha) (Accucheck) 1 ea 02 XX ; Start 09/01/16 at 02:00 Insulin Glargine (Lantus) 18 unit QHS SC Last administered on 09/02/16 21:10; Admin Dose 18 UNIT; Start 09/01/16 at 00:00 Ondansetron HCl (Zofran Inj) 4 mg Q6H PRN IV NAUSEA AND/OR VOMITING; Start 09/01 at 11:30 Acetaminophen (Tylenol Tab) 650 mg Q6H PRN PO PAIN AND OR ELEVATED TEMP Last administered on 09/02/16 20:58; Admin Dose 650 MG; Start 09/01/16 at 11:30 Diphenhydramine HCl (Benadryl) 25 mg Q6H PRN PO ITCHING Last administered on 11:25; Admin Dose 25 MG; Start 09/01/16 at 11:30 Guaifenesin/ Dextromethorphan (Robitussin Dm Liquid Cup) 10 ml Q4H PRN PO COUGH Last administered on 09/02/16 21:00; Admin Dose 10 ML; Start 09/02/16 at 14:00 ROMA BUNDY MD Sep 03, 2016 09:09
[2016-09-03] MEDS: FLUTICASONE 0.05% 16 GM NAS SPRAY NASAL SCH (10:09)
[2016-09-03] MEDS: GUAIFENESIN/DM 5ML CUP PO PRN (11:15)
--- NOTE | 2016-09-03 12:37 | PN ---
Date/Time of Note Date/Time of Note DATE: 09/03/16 TIME: 11:59 Assessment/Plan VTE Prophylaxis VTE Prophylaxis Intervention: SCD's Lines/Catheters Urinary Cath still in place: No Assessment/Plan Assessment/Plan 71-year-old man: 1. 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 Hb stable now up to 9.4 post 4 units pRBC Platelets up to 97 post 2 unit platelets 18% blast, BM bx pending Dr Ruiz/Dr Olivas following 2. Thrombocytopenia also in setting of CMML but also now finding of 18% blast on peripheral smear, discussed with Dr Ruiz, Bone marrow bx today CT head negative and plts up to 97 post plts transfusion. 3. Diabetes mellitus, with associated neuropathy manifest by numbness in both feet. Previous clinical suspicion for diabetic gastroparesis. He has moderate hyperglycemia this time, for reasons unclear. No solis source of infection identified, and he has no fever. Continue Lantus and SSI, will resume Metformin as patient tolerating po well Zofran as needed 3. Mild hyponatremia: resolving up to 133, on NS, check labs in AM 4. Chronic benign positional vertigo. Continue Meclizine PRN 5. Gastroesophageal reflux disease. Continue Protonix 6. URI with cough and sore throat: CXR stable on admission, symptomatic treatment. Prophylaxis. Sequential compression devices to lower extremity for DVT prevention, PPI for GI ppx DISPOSITION: Bone marrow bx pending today. Subjective 24 Hr Interval Summary Free Text/Dictation Patient doing Ok and remains stable BM bx pending Appreciate Hematology recommendations Exam/Review of Systems Vital Signs Vitals Vital Signs Date Time Temp Pulse Resp B/P Pulse Ox O2 Delivery O2 Flow Rate FiO2 09/03/16 11:25 98.2 78 18 134/64 96 09/03/16 01:26 Nasal Cannula 2.0 Intake and Output 09/02/16 09/02/16 09/03/16 15:00 23:00 07:00 Intake Total 950 ml 1452 ml Output Total 107 ml 1200 ml Balance 843 ml 252 ml Exam Constitutional: alert, oriented, well developed Respiratory: clear to auscultation, normal air movement Cardiovascular: nl pulses, regular rate and rhythm Gastrointestinal: non-tender, soft Musculoskeletal: nl extremities to inspection Extremities: normal pulses, other (no edema, clubbing or cyanosis ) Neurological: WEEKEND CAREGIVER II-XII intact, nl mental status, nl speech, nl strength Results Result Diagram: 09/03/16 0600 09/03/16 0600 Results 24 hrs Laboratory Tests Test 09/02/16 17:49 09/02/16 21:04 09/03/16 02:34 09/03/16 06:00 Bedside Glucose 150 258 H 182 Alanine Aminotransferase (ALT/SGPT) 48 Albumin 2.9 L Albumin/Globulin Ratio 0.72 Alkaline Phosphatase 98 Anion Gap 11 Anisocytosis 2+ Aspartate Amino Transf (AST/SGOT) 42 Band Neutrophils % 4.0 Basophils # 0.2 H Basophils % 2.0 Blast Cells % 18.0 H Blastocytes # 2.0 Blood Morphology Comment Blood Urea Nitrogen 10 Calcium Level 8.3 L Carbon Dioxide Level 29 Chloride Level 100 Creatinine 0.65 Differential Comment MANUAL DIFF Direct Bilirubin 0.00 Eosinophils # Eosinophils % Globulin 4.00 H Glucose Level 106 Hematocrit 27.9 L Hemoglobin 8.9 L Hypochromasia 2+ Indirect Bilirubin 0.5 Lymphocytes # 2.4 Lymphocytes % 22.0 Magnesium Level 2.4 Mean Corpuscular Hemoglobin 26.3 L Mean Corpuscular Hemoglobin Concent 32.1 Mean Corpuscular Volume 82.0 Mean Platelet Volume 7.3 L Monocytes # 4.6 H Monocytes % 42.0 H Myelocytes # 0.1 Myelocytes % 1.0 H Neutrophils # 1.2 L Neutrophils % 11.0 L Nucleated Red Blood Cells # Nucleated Red Blood Cells % Phosphorus Level 2.9 Platelet Count 97 #L Potassium Level 4.1 Red Blood Count 3.40 L Red Cell Distribution Width 20.3 H Sodium Level 136 Total Bilirubin 0.5 Total Protein 6.9 White Blood Count 11.0 H Test 09/03/16 07:35 09/03/16 11:44 Bedside Glucose 99 241 H Medications Medications Current Medications Lidocaine (Lidocaine 5% Oint) 1 applic TID TOP Last administered on 09/02/16t 21:05; Admin Dose 1 APPLIC; Start 08/31/16 at 09:00 Miscellaneous Information 1 ea NOTE XX ; Start 08/31/16 at 02:00 Glucose (Glutose) 15 gm Q15M PRN PO DECREASED GLUCOSE; Start 08/31/16 at 02:00 Glucose (Glutose) 22.5 gm Q15M PRN PO DECREASED GLUCOSE; Start 08/31/16 at 02:00 Dextrose (D50w Syringe) 25 ml Q15M PRN IV DECREASED GLUCOSE; Start 08/31/16 at 02:00 Dextrose (D50w Syringe) 50 ml Q15M PRN IV DECREASED GLUCOSE; Start 08/31/16 at 02:00 Glucagon (Glucagen) 1 mg Q15M PRN IM DECREASED GLUCOSE; Start 08/31/16 at 02:00 Glucose (Glutose) 15 gm Q15M PRN BUCCAL DECREASED GLUCOSE; Start 08/31/16 at 02: 00 Fluticasone Propionate (Flonase 0.05% Nasal) 2 spray DAILY NASAL Last administered on 09/03/16 10:09; Admin Dose 2 SPRAY; Start 08/31/16 at 09:00 Diagnostic Test (Pha) (Accucheck) 1 ea 02 XX ; Start 09/01/16 at 02:00 Insulin Glargine (Lantus) 18 unit QHS SC Last administered on 09/02/16 21:10; Admin Dose 18 UNIT; Start 09/01/16 at 00:00 Ondansetron HCl (Zofran Inj) 4 mg Q6H PRN IV NAUSEA AND/OR VOMITING; Start 09/01 at 11:30 Acetaminophen (Tylenol Tab) 650 mg Q6H PRN PO PAIN AND OR ELEVATED TEMP Last administered on 09/02/16 20:58; Admin Dose 650 MG; Start 09/01/16 at 11:30 Diphenhydramine HCl (Benadryl) 25 mg Q6H PRN PO ITCHING Last administered on 11:25; Admin Dose 25 MG; Start 09/01/16 at 11:30 Guaifenesin/ Dextromethorphan (Robitussin Dm Liquid Cup) 10 ml Q4H PRN PO COUGH Last administered on 09/03/16 11:15; Admin Dose 10 ML; Start 09/02/16 at 14:00 Procedures Procedures PROCEDURE: CT Head without. CLINICAL INDICATION: Headache, low platelets. Evaluate for possible intracranial hemorrhage. TECHNIQUE: The study was performed utilizing a multi-slice, multidetector CT scanner. Direct spiral 1 mm axial sections were obtained through the head without the use of intravenous contrast material. Coronal and sagittal reformats were obtained. The images were reviewed on a PACS workstation. RADIATION DOSE: CTDIvol: 44.9 mGy DLP: 630.2 mGy-cm COMPARISON: 12/18/2015 FINDINGS: There is no intracranial hemorrhage, extra-axial fluid collection, mass lesion, midline shift or hydrocephalus. There is mild prominence of the cerebral sulci , lateral and third ventricles. There is mild periventricular and subcortical white matter hypodensity. There is mild arteriosclerotic calcification of the parasellar internal carotid arteries. The armas-white matter differentiation is preserved. The basal cisterns are patent. The midline structures are intact. There is bilateral aphakia. There is pneumatization bilateral petrous apices without evidence of inflammatory changes, normal variant. The orbits, calvarium and extracranial soft tissues are normal in appearance. The visualized paranasal sinuses, mastoid air cells and middle ear cavities are normally aerated. IMPRESSION: 1. No acute intracranial abnormality. No intracranial hemorrhage, extra-axial fluid collection, mass lesion or hydrocephalous. 2. Mild peripheral and central cerebral volume loss. 3. Mild periventricular and subcortical white matter hypodensity, likely related to chronic microangiopathic changes. RPTAT: HGAS .Tray Vazquez MD, MD Date Time Electronically viewed and signed by .Tray Vazquez MD, MD on 09/02/2016 13: 17 TAM ROSE Sep 03, 2016 12:16
[2016-09-03] MEDS: ACETAMINOPHEN 325 MG TAB PO PRN (20:34)
[2016-09-03] MEDS: INSULIN GLARGINE [LANtus] 3 ML PEN SC SCH (20:42)
[2016-09-04] VITALS (12 sets, daily range): BP systolic 129–150; BP diastolic 61–71; PULSE 67–92; RESP 14–20
[2016-09-04] MEDS: ACCUCHECK AT 2AM (Patients on SS coverage) XX SCH (02:00)
[2016-09-04 05:52] LABS: HEMATOCRIT 29.3 % (42.0-52.0); HEMOGLOBIN 9.4 g/dl (14.0-18.0); MEAN CORPUSCULAR HEMOGLOBIN 26.4 pg (29.0-33.0); MEAN CORPUSCULAR HGB CONC 31.9 g/dl (32.0-37.0); MEAN CORPUSCULAR VOLUME 82.5 fl (82.0-101.0); MEAN PLATELET VOLUME 7.9 fl (7.4-10.4); PLATELET COUNT 81 10^3/UL (140-440); RED BLOOD COUNT 3.55 10^6/ul (4.70-6.10); RED CELL DISTRIBUTION WIDTH 20.4 % (11.5-14.5); UNCORRECTED WBC 12.3 10^3/ul (4.8-10.8); WHITE BLOOD COUNT 12.3 10^3/ul (4.8-10.8)
[2016-09-04 06:06] LABS: CONDITION 1; LH ANALYZER COMMENTS 1; SUSPECT 1
[2016-09-04 06:22] LABS: POTASSIUM 4.3 mmol/L (3.5-5.1)
[2016-09-04 06:25] LABS: CREATININE 0.65 mg/dl (0.61-1.24)
[2016-09-04 06:26] LABS: CALCIUM 8.4 mg/dl (8.4-10.2)
[2016-09-04 06:49] LABS: MAGNESIUM 2.3 mg/dl (1.7-2.5); PHOSPHORUS 3.4 mg/dl (2.5-4.9)
[2016-09-04] MEDS: SUCRALFATE 1 GM TAB PO SCH ×4 (07:20→20:57)
[2016-09-04] MEDS: INSULIN ASPART [NOVOLOG] 3 ML PEN SC SCH ×3 (07:50→17:46)
[2016-09-04] MEDS: ACCUCHECK XX SCH ×3 (07:50→20:52)
[2016-09-04 07:57] LABS: LYMPHOCYTES # 3.8 10^3/ul (0.8-2.9); MONOCYTE # 3.6 10^3/ul (0.3-0.9); MYELOCYTES # 0.5; NEUTROPHIL # 1.1 10^3/ul (1.6-7.5); PLATELET ESTIMATE PLT APPEAR DECREASED
[2016-09-04] MEDS ORDERED: LIDOCAINE 1% (MDV) 20 ML INJ ONE (10:07)
[2016-09-04] MEDS ORDERED: FENTAnyl 50 MCG/ML VIAL ONE (10:33)
[2016-09-04] MEDS ORDERED: SOD CHLORIDE 0.9% 500 ML ONE (10:33)
[2016-09-04] MEDS ORDERED: MIDAZOLAM 1 MG/ML 2 ML INJ ONE (10:33)
--- NOTE | 2016-09-04 11:32 | CONS ---
Date/Time of Note Date/Time of Note DATE: 09/04/16 TIME: 11:32 Assessment/Plan Assessment/Plan Chief Complaint/Hosp Course 71 yo with CMML who is currently off therapy admitted for symptomatic anemia and thrombocytopenia. 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 I spoke with Dr. Gallegos patient's primary oncologist who is aware of patient's peripheral blood findings. For now the plan is to attempt to resume Vidaza treatment as an out patient and to transfuse as needed. Problems: Additional Assessment/Plan -s/p 1 units of platelets 09/02/16. 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 Plan for BMBx today, will f/u results. Discussed with Dr. Gallegos, her primary oncologist, who is ok with induction chemotherapy. -Discussed with patient's daughter Tawny ([phone]). Patient and family agreeable to induction chemotherapy with 7+3 -Tumor lysis labs ordered, allopurinol ordered -PICC line to be placed Cytarabine 100 mg/m2 CIV over 24 hours D1-7 Idarubicin 12 mg/m2 IVP D1-3 Problems: Consultation Date/Type/Reason Admit Date/Time Aug 31, 2016 at 00:38 Initial Consult Date 09/02/16 Type of Consultation: Hematology/Oncology Referring Provider: TAM ROSE 24 HR Interval Summary Free Text/Dictation Patient doing well. I spoke with patient and family and they would like to proceed with induction chemotherapy. Exam/Review of Systems Vital Signs Vitals Vital Signs Date Time Temp Pulse Resp B/P Pulse Ox O2 Delivery O2 Flow Rate FiO2 09/04/16 08:18 98.1 62 20 150/68 96 09/03/16 01:26 Nasal Cannula 2.0 Intake and Output 09/03/16 09/03/16 09/04/16 15:00 23:00 07:00 Intake Total 400 ml 400 ml Output Total 800 ml 900 ml Balance -400 ml -500 ml Exam Constitutional: alert Psych: no complaints Head: atraumatic, normocephalic Eyes: nl conjunctiva ENMT: nl external ears & nose Neck: non-tender, supple Respiratory: clear to auscultation, normal air movement Cardiovascular: nl pulses, regular rate and rhythm Gastrointestinal: nl liver, spleen, soft Genitourinary - Male: nl penis Musculoskeletal: nl extremities to inspection, nl gait and stance Extremities: normal pulses Results Result Diagram: 09/04/16 0455 09/04/16 0455 Results 24 hrs Laboratory Tests Test 09/03/16 11:44 09/03/16 17:10 09/03/16 20:35 09/04/16 02:32 Bedside Glucose 241 H 175 187 108 Test 09/04/16 04:55 09/04/16 08:05 Anion Gap 12 Band Neutrophils % 1.0 Basophils # Basophils % Blast Cells % 25.0 H Blastocytes # 3.1 Blood Morphology Comment Blood Urea Nitrogen 10 Calcium Level 8.4 Carbon Dioxide Level 28 Chloride Level 102 Creatinine 0.65 Eosinophils # Eosinophils % Glucose Level 99 Hematocrit 29.3 L Hemoglobin 9.4 L Lymphocytes # 3.8 H Lymphocytes % 31.0 Magnesium Level 2.3 Mean Corpuscular Hemoglobin 26.4 L Mean Corpuscular Hemoglobin Concent 31.9 L Mean Corpuscular Volume 82.5 Mean Platelet Volume 7.9 Metamyelocytes # 0.1 Metamyelocytes % 1.0 H Monocytes # 3.6 H Monocytes % 29.0 H Myelocytes # 0.5 Myelocytes % 4.0 H Neutrophils # 1.1 L Neutrophils % 9.0 L Nucleated Red Blood Cells # Nucleated Red Blood Cells % Phosphorus Level 3.4 Platelet Count 81 L Platelet Estimate PLT APPEAR DECREASED Potassium Level 4.3 Red Blood Count 3.55 L Red Cell Distribution Width 20.4 H Sodium Level 138 White Blood Count 12.3 H Bedside Glucose 105 Medications Medications Current Medications Miscellaneous Information 1 ea NOTE XX ; Start 08/31/16 at 02:00 Glucose (Glutose) 15 gm Q15M PRN PO DECREASED GLUCOSE; Start 08/31/16 at 02:00 Glucose (Glutose) 22.5 gm Q15M PRN PO DECREASED GLUCOSE; Start 08/31/16 at 02:00 Dextrose (D50w Syringe) 25 ml Q15M PRN IV DECREASED GLUCOSE; Start 08/31/16 at 02:00 Dextrose (D50w Syringe) 50 ml Q15M PRN IV DECREASED GLUCOSE; Start 08/31/16 at 02:00 Glucagon (Glucagen) 1 mg Q15M PRN IM DECREASED GLUCOSE; Start 08/31/16 at 02:00 Glucose (Glutose) 15 gm Q15M PRN BUCCAL DECREASED GLUCOSE; Start 08/31/16 at 02: 00 Fluticasone Propionate (Flonase 0.05% Nasal) 2 spray DAILY NASAL Last administered on 09/03/16 10:09; Admin Dose 2 SPRAY; Start 08/31/16 at 09:00 Diagnostic Test (Pha) (Accucheck) 1 ea 02 XX ; Start 09/01/16 at 02:00 Insulin Glargine (Lantus) 18 unit QHS SC Last administered on 09/03/16 20:42; Admin Dose 18 UNIT; Start 09/01/16 at 00:00 Ondansetron HCl (Zofran Inj) 4 mg Q6H PRN IV NAUSEA AND/OR VOMITING; Start 09/01 at 11:30 Acetaminophen (Tylenol Tab) 650 mg Q6H PRN PO PAIN AND OR ELEVATED TEMP Last administered on 09/03/16 20:34; Admin Dose 650 MG; Start 09/01/16 at 11:30 Diphenhydramine HCl (Benadryl) 25 mg Q6H PRN PO ITCHING Last administered on 11:25; Admin Dose 25 MG; Start 09/01/16 at 11:30 Guaifenesin/ Dextromethorphan (Robitussin Dm Liquid Cup) 10 ml Q4H PRN PO COUGH Last administered on 09/03/16 11:15; Admin Dose 10 ML; Start 09/02/16 at 14:00 ROMA BUNDY MD Sep 04, 2016 11:32
--- NOTE | 2016-09-04 11:41 | PN ---
Date/Time of Note Date/Time of Note DATE: 09/04/16 TIME: 11:33 Assessment/Plan VTE Prophylaxis VTE Prophylaxis Intervention: SCD's Lines/Catheters IV [facility] Saline Lock Urinary Cath still in place: No Assessment/Plan Assessment/Plan 71-year-old man: 1. 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 Hb stable now s/p 4 units pRBC Platelets up s/p 2 unit platelets 30% blast on Flow cytometry per Hematology... BM bx today and Dr Olivas will be discussing induction Chemo with patient and his daughter. 2. Thrombocytopenia also in setting of CMML but also now finding of 18% blast on peripheral smear, discussed with Dr Ruiz, Bone marrow bx today and plans for induction chemo if patient and family agrees and willing to. 3. Diabetes mellitus, with associated neuropathy manifest by numbness in both feet. Previous clinical suspicion for diabetic gastroparesis. He has moderate hyperglycemia this time, for reasons unclear. No solis source of infection identified, and he has no fever. Continue Lantus and SSI, will resume Metformin as patient tolerating po well Zofran as needed 3. Mild hyponatremia: resolved 4. Chronic benign positional vertigo. Continue Meclizine PRN 5. Gastroesophageal reflux disease. Continue Protonix 6. URI with cough and sore throat: CXR stable on admission, symptomatic treatment. Prophylaxis. Sequential compression devices to lower extremity for DVT prevention, PPI for GI ppx DISPOSITION: Bone marrow bx pending today. Subjective 24 Hr Interval Summary Free Text/Dictation Patient getting his BM bx this AM Per Dr Olivas, flow cytometry with 30% blasts and plans for induction chemo on this admission if patient willing to and family agreeable Afebrile and counts Ok but 25% blasts this AM on peripheral smear Exam/Review of Systems Vital Signs Vitals Vital Signs Date Time Temp Pulse Resp B/P Pulse Ox O2 Delivery O2 Flow Rate FiO2 09/04/16 08:18 98.1 62 20 150/68 96 09/03/16 01:26 Nasal Cannula 2.0 Intake and Output 09/03/16 09/03/16 09/04/16 15:00 23:00 07:00 Intake Total 400 ml 400 ml Output Total 800 ml 900 ml Balance -400 ml -500 ml Exam Constitutional: alert, oriented, well developed Respiratory: clear to auscultation, normal air movement Cardiovascular: nl pulses, regular rate and rhythm Gastrointestinal: non-tender, soft Musculoskeletal: nl extremities to inspection, other (no edema, clubbing or cyanosis ) Extremities: normal pulses Neurological: GENERAL STORE MANAGER II-XII intact, nl mental status, nl speech, nl strength Results Result Diagram: 09/04/16 0455 09/04/16 0455 Results 24 hrs Laboratory Tests Test 09/03/16 11:44 09/03/16 17:10 09/03/16 20:35 09/04/16 02:32 Bedside Glucose 241 H 175 187 108 Test 09/04/16 04:55 09/04/16 08:05 Anion Gap 12 Band Neutrophils % 1.0 Basophils # Basophils % Blast Cells % 25.0 H Blastocytes # 3.1 Blood Morphology Comment Blood Urea Nitrogen 10 Calcium Level 8.4 Carbon Dioxide Level 28 Chloride Level 102 Creatinine 0.65 Eosinophils # Eosinophils % Glucose Level 99 Hematocrit 29.3 L Hemoglobin 9.4 L Lymphocytes # 3.8 H Lymphocytes % 31.0 Magnesium Level 2.3 Mean Corpuscular Hemoglobin 26.4 L Mean Corpuscular Hemoglobin Concent 31.9 L Mean Corpuscular Volume 82.5 Mean Platelet Volume 7.9 Metamyelocytes # 0.1 Metamyelocytes % 1.0 H Monocytes # 3.6 H Monocytes % 29.0 H Myelocytes # 0.5 Myelocytes % 4.0 H Neutrophils # 1.1 L Neutrophils % 9.0 L Nucleated Red Blood Cells # Nucleated Red Blood Cells % Phosphorus Level 3.4 Platelet Count 81 L Platelet Estimate PLT APPEAR DECREASED Potassium Level 4.3 Red Blood Count 3.55 L Red Cell Distribution Width 20.4 H Sodium Level 138 White Blood Count 12.3 H Bedside Glucose 105 Medications Medications Current Medications Miscellaneous Information 1 ea NOTE XX ; Start 08/31/16 at 02:00 Glucose (Glutose) 15 gm Q15M PRN PO DECREASED GLUCOSE; Start 08/31/16 at 02:00 Glucose (Glutose) 22.5 gm Q15M PRN PO DECREASED GLUCOSE; Start 08/31/16 at 02:00 Dextrose (D50w Syringe) 25 ml Q15M PRN IV DECREASED GLUCOSE; Start 08/31/16 at 02:00 Dextrose (D50w Syringe) 50 ml Q15M PRN IV DECREASED GLUCOSE; Start 08/31/16 at 02:00 Glucagon (Glucagen) 1 mg Q15M PRN IM DECREASED GLUCOSE; Start 08/31/16 at 02:00 Glucose (Glutose) 15 gm Q15M PRN BUCCAL DECREASED GLUCOSE; Start 08/31/16 at 02: 00 Fluticasone Propionate (Flonase 0.05% Nasal) 2 spray DAILY NASAL Last administered on 09/03/16 10:09; Admin Dose 2 SPRAY; Start 08/31/16 at 09:00 Diagnostic Test (Pha) (Accucheck) 1 ea 02 XX ; Start 09/01/16 at 02:00 Insulin Glargine (Lantus) 18 unit QHS SC Last administered on 09/03/16 20:42; Admin Dose 18 UNIT; Start 09/01/16 at 00:00 Ondansetron HCl (Zofran Inj) 4 mg Q6H PRN IV NAUSEA AND/OR VOMITING; Start 09/01 at 11:30 Acetaminophen (Tylenol Tab) 650 mg Q6H PRN PO PAIN AND OR ELEVATED TEMP Last administered on 09/03/16 20:34; Admin Dose 650 MG; Start 09/01/16 at 11:30 Diphenhydramine HCl (Benadryl) 25 mg Q6H PRN PO ITCHING Last administered on 11:25; Admin Dose 25 MG; Start 09/01/16 at 11:30 Guaifenesin/ Dextromethorphan (Robitussin Dm Liquid Cup) 10 ml Q4H PRN PO COUGH Last administered on 09/03/16 11:15; Admin Dose 10 ML; Start 09/02/16 at 14:00 TAM ROSE Sep 04, 2016 11:41
[2016-09-04] MEDS: FLUTICASONE 0.05% 16 GM NAS SPRAY NASAL SCH (12:30)
[2016-09-04] MEDS: GUAIFENESIN/DM 5ML CUP PO PRN ×2 (16:54→20:58)
--- NOTE | 2016-09-04 17:31 | RADRPT ---
PROCEDURE: CT guided bone marrow aspiration and left iliac bone biopsy. CLINICAL INDICATION: History of pancytopenia. TECHNIQUE: Informed consent was obtained. The procedure, risks, benefits, complications and alternatives were e xplained to the patient. Risks including bleeding and infection were explained. The patient understo od and was willing to proceed. A procedural pause was performed. The patient's name, date of , and procedure to be performed were verified. One or more of the following dose reduction techni ques were used: Automated exposure control, adjustment of the mA and/or kV according to patient size , use of iterative reconstruction technique. Using local anesthetic, sterile technique and CT guidance, an 11-gauge On Control bone biopsy needle was advanced into the left iliac bone via a posterior approach. Bone marrow aspiration was perform ed yielding approximately 10 ml. The bone biopsy needle was then advanced an additional 4 cm using the power drill device and tissue was obtained. Adequate tissue was obtained according to the patho logist present during the procedure. The needle was removed. A postprocedural scan was performed. A dressing was applied. The patient tolerated procedure well. COMPARISON: None. FINDINGS: Initial images demonstrate the tip of the needle at the posterior margin of the left iliac bone. Olmos bsequent images demonstrate the needle within the bone. Post biopsy images demonstrate no immediate complication. IMPRESSION: 1. Successful CT guided bone marrow aspiration and biopsy. RPTAT: QQ .Duc Whitt MD, Date Time Electronically viewed and signed by .Duc Whitt MD, on 09/04/2016 17:31 .R/
[2016-09-04] MEDS: ALLOPURINOL 300 MG TAB PO SCH (17:43)
[2016-09-04] MEDS: INSULIN GLARGINE [LANtus] 3 ML PEN SC SCH (20:58)
[2016-09-05] VITALS (10 sets, daily range): BP systolic 128–143; BP diastolic 56–83; PULSE 60–77; RESP 18–20
[2016-09-05] MEDS: ACCUCHECK AT 2AM (Patients on SS coverage) XX SCH (01:19)
[2016-09-05 06:24] LABS: URIC ACID 3.6 mg/dl (3.1-7.9)
[2016-09-05] MEDS: ACCUCHECK XX SCH ×4 (07:50→20:33)
[2016-09-05] MEDS ORDERED: LIDOCAINE 1% (MDV) 20 ML INJ SC ONE (08:30)
[2016-09-05] MEDS: ALLOPURINOL 300 MG TAB PO SCH (08:42)
[2016-09-05] MEDS: FLUTICASONE 0.05% 16 GM NAS SPRAY NASAL SCH (08:42)
[2016-09-05] MEDS: GUAIFENESIN/DM 5ML CUP PO PRN ×3 (08:42→20:32)
[2016-09-05] MEDS: SUCRALFATE 1 GM TAB PO SCH ×4 (08:42→20:32)
[2016-09-05] MEDS: INSULIN ASPART [NOVOLOG] 3 ML PEN SC SCH ×3 (08:47→17:58)
--- NOTE | 2016-09-05 11:46 | PN ---
Date/Time of Note Date/Time of Note DATE: 09/05/16 TIME: 11:38 Assessment/Plan VTE Prophylaxis VTE Prophylaxis Intervention: SCD's Lines/Catheters [facility] Saline Lock Urinary Cath still in place: No Assessment/Plan Assessment/Plan 71 yo male with: 1. 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 2. Diabetes mellitus, with associated neuropathy manifest by numbness in both feet. Previous clinical suspicion for diabetic gastroparesis. He has moderate hyperglycemia this time, for reasons unclear. No solis source of infection identified, and he has no fever. Continue Lantus and SSI, will resume Metformin as patient tolerating po well Zofran as needed 3. Mild hyponatremia: resolved 4. Chronic benign positional vertigo. Continue Meclizine PRN 5. Gastroesophageal reflux disease. Continue Protonix 6. URI with cough and sore throat: CXR stable on admission, symptomatic treatment. Prophylaxis. Sequential compression devices to lower extremity for DVT prevention, PPI for GI ppx DISPOSITION: PICC line placement and induction chemo today. Subjective 24 Hr Interval Summary Free Text/Dictation Patient remains stable and getting PICC line today and to start chemo Anticipating a long hospitalization Exam/Review of Systems Vital Signs Vitals Vital Signs Date Time Temp Pulse Resp B/P Pulse Ox O2 Delivery O2 Flow Rate FiO2 09/05/16 07:43 98.0 68 18 129/62 97 09/04/16 21:23 Nasal Cannula 2 Intake and Output 09/04/16 09/04/16 09/05/16 15:00 23:00 07:00 Intake Total 150 ml 1140 ml 1700 ml Output Total 250 ml 1000 ml 1500 ml Balance -100 ml 140 ml 200 ml Exam Constitutional: alert, oriented, well developed Respiratory: clear to auscultation, normal air movement Cardiovascular: nl pulses, regular rate and rhythm Gastrointestinal: non-tender, soft Musculoskeletal: nl extremities to inspection Extremities: normal pulses, other (no edema, clubbing or cyanosis) Neurological: CHILD CARE COORDINATOR II-XII intact, nl mental status, nl speech, nl strength Results Result Diagram: 09/04/16 0455 09/04/16 0455 Results 24 hrs Laboratory Tests Test 09/04/16 11:55 09/04/16 16:48 09/04/16 20:51 09/05/16 04:20 Bedside Glucose 123 170 261 H Lactate Dehydrogenase 858 H Uric Acid 3.6 Test 09/05/16 07:53 09/05/16 11:30 Bedside Glucose 80 202 Medications Medications Current Medications Miscellaneous Information 1 ea NOTE XX ; Start 08/31/16 at 02:00 Glucose (Glutose) 15 gm Q15M PRN PO DECREASED GLUCOSE; Start 08/31/16 at 02:00 Glucose (Glutose) 22.5 gm Q15M PRN PO DECREASED GLUCOSE; Start 08/31/16 at 02:00 Dextrose (D50w Syringe) 25 ml Q15M PRN IV DECREASED GLUCOSE; Start 08/31/16 at 02:00 Dextrose (D50w Syringe) 50 ml Q15M PRN IV DECREASED GLUCOSE; Start 08/31/16 at 02:00 Glucagon (Glucagen) 1 mg Q15M PRN IM DECREASED GLUCOSE; Start 08/31/16 at 02:00 Glucose (Glutose) 15 gm Q15M PRN BUCCAL DECREASED GLUCOSE; Start 08/31/16 at 02: 00 Fluticasone Propionate (Flonase 0.05% Nasal) 2 spray DAILY NASAL Last administered on 09/05/16 08:42; Admin Dose 2 SPRAY; Start 08/31/16 at 09:00 Diagnostic Test (Pha) (Accucheck) 1 ea 02 XX ; Start 09/01/16 at 02:00 Insulin Glargine (Lantus) 18 unit QHS SC Last administered on 09/04/16 20:58; Admin Dose 18 UNIT; Start 09/01/16 at 00:00 Ondansetron HCl (Zofran Inj) 4 mg Q6H PRN IV NAUSEA AND/OR VOMITING; Start 09/01 at 11:30 Acetaminophen (Tylenol Tab) 650 mg Q6H PRN PO PAIN AND OR ELEVATED TEMP Last administered on 09/03/16 20:34; Admin Dose 650 MG; Start 09/01/16 at 11:30 Diphenhydramine HCl (Benadryl) 25 mg Q6H PRN PO ITCHING Last administered on 11:25; Admin Dose 25 MG; Start 09/01/16 at 11:30 Guaifenesin/ Dextromethorphan (Robitussin Dm Liquid Cup) 10 ml Q4H PRN PO COUGH Last administered on 09/05/16 08:42; Admin Dose 10 ML; Start 09/02/16 at 14:00 Allopurinol (Zyloprim) 300 mg DAILY PO Last administered on 09/05/16 08:42; Admin Dose 300 MG; Start 09/04/16 at 16:30 TAM ROSE Sep 05, 2016 11:46
--- NOTE | 2016-09-05 12:14 | RADRPT ---
PROCEDURE: XR Chest. CLINICAL INDICATION: Check PICC line position. TECHNIQUE: Single frontal view. COMPARISON: 08/30/2016. FINDINGS: There is a left arm PICC line with the tip in the lower superior vena cava. There is extensive wood grainer clemencia bilateral interstitial pulmonary disease, unchanged. Mild atelectasis at the lung bases is unch anged. The heart is mildly enlarged. There is no pleural effusion. There is no pneumothorax. IMPRESSION: 1. Satisfactory position of left arm PICC line. 2. Unchanged chronic bilateral interstitial disease and mild atelectasis at the lung bases. 3. Mild cardiomegaly. RPTAT: QQ .Duc Whitt MD, MD Date Time Electronically viewed and signed by .Duc Whitt MD, MD on 09/05/2016 12:14 .R/
[2016-09-05 12:22] LABS: HEMATOCRIT 32.2 % (42.0-52.0); HEMOGLOBIN 10.3 g/dl (14.0-18.0); MEAN CORPUSCULAR HEMOGLOBIN 26.1 pg (29.0-33.0); MEAN CORPUSCULAR HGB CONC 31.9 g/dl (32.0-37.0); MEAN CORPUSCULAR VOLUME 81.8 fl (82.0-101.0); MEAN PLATELET VOLUME 6.7 fl (7.4-10.4); PLATELET COUNT 67 10^3/UL (140-440); RED BLOOD COUNT 3.94 10^6/ul (4.70-6.10); RED CELL DISTRIBUTION WIDTH 21.4 % (11.5-14.5); UNCORRECTED WBC 13.9 10^3/ul (4.8-10.8); WHITE BLOOD COUNT 13.9 10^3/ul (4.8-10.8)
[2016-09-05] MEDS: ACETAMINOPHEN 325 MG TAB PO PRN (12:25)
[2016-09-05 12:26] LABS: CONDITION 1; LH ANALYZER COMMENTS 1; SUSPECT 1
--- NOTE | 2016-09-05 12:32 | RADRPT ---
PROCEDURE: Ultrasound guidance for placement of needle in left upper extremity vein. CLINICAL INDICATION: Venous access. TECHNIQUE: Limited sonography of the left upper extremity was performed. Ultrasound images were recorded and s tored in the patient's medical record. COMPARISON: None. FINDINGS: The ultrasound images demonstrate a patent left upper extremity vein. The PICC line was inserted by the PICC line nurse. IMPRESSION: 1. Ultrasound guidance for a needle placement in a left upper extremity vein. 2. The left upper extremity vein is patent. RPTAT: QQ .Duc Whitt MD, MD Date Time Electronically viewed and signed by .Duc Whitt MD, MD on 09/05/2016 12:31 .R/
--- NOTE | 2016-09-05 12:43 | CONS ---
Date/Time of Note Date/Time of Note DATE: 09/05/16 TIME: 12:41 Assessment/Plan Assessment/Plan Chief Complaint/Hosp Course 71 yo with CMML who is currently off therapy admitted for symptomatic anemia and thrombocytopenia. 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 I spoke with Dr. Gallegos patient's primary oncologist who is aware of patient's peripheral blood findings. For now the plan is to attempt to resume [facility] treatment as an out patient and to transfuse as needed. Problems: Additional Assessment/Plan -s/p 1 units of platelets 09/02/16. 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 s/p BMBx 09/04/16, will f/u results. Discussed with Dr. Gallegos, her primary oncologist, who is ok with induction chemotherapy. -Discussed with patient's daughter Tawny ([phone]). Patient and family agreeable to induction chemotherapy with 7+3 -Tumor lysis labs ordered, allopurinol ordered -PICC line placed, CXR pending to confirm placement and eval for infiltrate given patient's cough - Patient will need to stay inpatient for 3-4 weeks to await count recovery and monitor for infection, transfusions, etc. Patient will need D14 bone marrow. Side effects and course explained to the patient and family. Cytarabine 100 mg/m2 CIV over 24 hours D1-7 Idarubicin 12 mg/m2 IVP D1-3 Problems: Consultation Date/Type/Reason Admit Date/Time Aug 31, 2016 at 00:38 Initial Consult Date 09/02/16 Type of Consultation: Hematology/Oncology Referring Provider: TAM ROSE 24 HR Interval Summary Free Text/Dictation Patient noted to have a cough, otherwise denies SOB. He states that his "body hurts." Exam/Review of Systems Vital Signs Vitals Vital Signs Date Time Temp Pulse Resp B/P Pulse Ox O2 Delivery O2 Flow Rate FiO2 09/05/16 07:43 98.0 68 18 129/62 97 09/04/16 21:23 Nasal Cannula 2 Intake and Output 09/04/16 09/04/16 09/05/16 15:00 23:00 07:00 Intake Total 150 ml 1140 ml 1700 ml Output Total 250 ml 1000 ml 1500 ml Balance -100 ml 140 ml 200 ml Exam Constitutional: alert Psych: no complaints Head: atraumatic, normocephalic Eyes: nl conjunctiva ENMT: nl external ears & nose Neck: non-tender, supple Respiratory: clear to auscultation, normal air movement Cardiovascular: nl pulses, regular rate and rhythm Gastrointestinal: nl liver, spleen, soft Genitourinary - Male: nl penis Musculoskeletal: nl extremities to inspection, nl gait and stance Extremities: normal pulses Results Result Diagram: 09/05/16 1217 09/04/16 0455 Results 24 hrs Laboratory Tests Test 09/04/16 16:48 09/04/16 20:51 09/05/16 04:20 09/05/16 07:53 Bedside Glucose 170 261 H 80 Lactate Dehydrogenase 858 H Uric Acid 3.6 Test 09/05/16 11:30 09/05/16 12:17 Bedside Glucose 202 Basophils # Basophils % Blood Morphology Comment Eosinophils # Eosinophils % Hematocrit 32.2 L Hemoglobin 10.3 L Lymphocytes # Lymphocytes % Mean Corpuscular Hemoglobin 26.1 L Mean Corpuscular Hemoglobin Concent 31.9 L Mean Corpuscular Volume 81.8 L Mean Platelet Volume 6.7 L Monocytes # Neutrophils # Neutrophils % Nucleated Red Blood Cells # Nucleated Red Blood Cells % Platelet Count 67 L Red Blood Count 3.94 L Red Cell Distribution Width 21.4 H White Blood Count 13.9 H Medications Medications Current Medications Miscellaneous Information 1 ea NOTE XX ; Start 08/31/16 at 02:00 Glucose (Glutose) 15 gm Q15M PRN PO DECREASED GLUCOSE; Start 08/31/16 at 02:00 Glucose (Glutose) 22.5 gm Q15M PRN PO DECREASED GLUCOSE; Start 08/31/16 at 02:00 Dextrose (D50w Syringe) 25 ml Q15M PRN IV DECREASED GLUCOSE; Start 08/31/16 at 02:00 Dextrose (D50w Syringe) 50 ml Q15M PRN IV DECREASED GLUCOSE; Start 08/31/16 at 02:00 Glucagon (Glucagen) 1 mg Q15M PRN IM DECREASED GLUCOSE; Start 08/31/16 at 02:00 Glucose (Glutose) 15 gm Q15M PRN BUCCAL DECREASED GLUCOSE; Start 08/31/16 at 02: 00 Fluticasone Propionate (Flonase 0.05% Nasal) 2 spray DAILY NASAL Last administered on 09/05/16 08:42; Admin Dose 2 SPRAY; Start 08/31/16 at 09:00 Diagnostic Test (Pha) (Accucheck) 1 ea 02 XX ; Start 09/01/16 at 02:00 Insulin Glargine (Lantus) 18 unit QHS SC Last administered on 09/04/16 20:58; Admin Dose 18 UNIT; Start 09/01/16 at 00:00 Ondansetron HCl (Zofran Inj) 4 mg Q6H PRN IV NAUSEA AND/OR VOMITING; Start 09/01 at 11:30 Acetaminophen (Tylenol Tab) 650 mg Q6H PRN PO PAIN AND OR ELEVATED TEMP Last administered on 09/05/16 12:25; Admin Dose 650 MG; Start 09/01/16 at 11:30 Diphenhydramine HCl (Benadryl) 25 mg Q6H PRN PO ITCHING Last administered on 11:25; Admin Dose 25 MG; Start 09/01/16 at 11:30 Guaifenesin/ Dextromethorphan (Robitussin Dm Liquid Cup) 10 ml Q4H PRN PO COUGH Last administered on 09/05/16 08:42; Admin Dose 10 ML; Start 09/02/16 at 14:00 Allopurinol 300 mg 300 mg DAILY PO Last administered on 09/05/16 08:42; Admin Dose 300 MG; Start 09/04/16 at 16:30 Cytarabine 174 mg/ Sodium Chloride 500 ml @ 20.833 mls/ hr Q24H IVPB ; Start at 18:00; Stop 09/12/16 at 17:59 Idarubicin HCl/ Idarubicin HCl/ Sodium Chloride (Idamycin/ Idamycin/NS) 50 ml @ 100 mls/hr 17 IV ; Start 09/05/16 at 17:00; Stop 09/07/16 at 17:29 Famotidine 20 mg 20 mg 1630 IV ; Start 09/05/16 at 16:30; Stop 09/11/16 at 16:31 Ondansetron HCl 16 mg/Dextrose 58 ml @ 212 mls/hr 1630 IV ; Start 09/05/16 at 16:30; Stop 09/11/16 at 16:47 Sodium Chloride (NS) 1,000 ml @ 50 mls/hr Q20H IV ; Start 09/05/16 at 12:00 IV Flush (NS 10 ml) 10 ml PRN PRN IV IV PROTOCOL; Start 09/05/16 at 12:30 ROMA BUNDY MD Sep 05, 2016 12:43
[2016-09-05 12:57] LABS: EOSINOPHILS # 0.1 10^3/ul (0.0-0.5); LYMPHOCYTES # 2.4 10^3/ul (0.8-2.9); MONOCYTE # 5.6 10^3/ul (0.3-0.9); MYELOCYTES # 0.4; NEUTROPHIL # 2.9 10^3/ul (1.6-7.5)
[2016-09-05 12:58] LABS: PLATELET ESTIMATE PLT APPEAR DECREASED
[2016-09-05] MEDS: SOD CHLORIDE 0.9% 1,000 ML IV SCH (13:57)
[2016-09-05 14:35] LABS: POTASSIUM 4.7 mmol/L (3.5-5.1)
[2016-09-05 14:37] LABS: ALBUMIN/GLOBULIN RATIO 0.71; BILIRUBIN,INDIRECT 0.5 mg/dl (0-1.1); BILIRUBIN,TOTAL 0.5 mg/dl (0.2-1.3); CREATININE 0.6 mg/dl (0.61-1.24); TOTAL PROTEIN 7.2 g/dl (6.1-8.1)
[2016-09-05] MEDS: FAMOTIDINE 20 MG INJ IV SCH (16:09)
[2016-09-05] MEDS: ONDANSETRON INJ 16 MG in DEXTROSE 5% 50 ML IV SCH (16:09)
[2016-09-05 16:19] LABS: MAGNESIUM 1.9 mg/dl (1.7-2.5); PHOSPHORUS 3.9 mg/dl (2.5-4.9)
[2016-09-05] MEDS: SOD CHLORIDE 0.9% IV SCH (16:43)
[2016-09-05] MEDS: IDARUBICIN IV SCH (16:43)
[2016-09-05] MEDS: CYTARABINE IVPB SCH (18:11)
[2016-09-05] MEDS: SOD CHLORIDE 0.9% IVPB SCH (18:11)
[2016-09-05] MEDS: INSULIN GLARGINE [LANtus] 3 ML PEN SC SCH (20:33)
[2016-09-06] VITALS (12 sets, daily range): BP systolic 115–158; BP diastolic 59–70; PULSE 61–70; RESP 18–20
[2016-09-06] MEDS: ACCUCHECK AT 2AM (Patients on SS coverage) XX SCH (01:01)
[2016-09-06 05:20] LABS: POTASSIUM 4.6 mmol/L (3.5-5.1)
[2016-09-06 05:22] LABS: CREATININE 0.74 mg/dl (0.61-1.24)
[2016-09-06 05:23] LABS: HEMATOCRIT 28.9 % (42.0-52.0); HEMOGLOBIN 9.2 g/dl (14.0-18.0); MEAN CORPUSCULAR HEMOGLOBIN 26.3 pg (29.0-33.0); MEAN CORPUSCULAR HGB CONC 31.8 g/dl (32.0-37.0); MEAN CORPUSCULAR VOLUME 82.7 fl (82.0-101.0); MEAN PLATELET VOLUME 7.2 fl (7.4-10.4); PLATELET COUNT 50 10^3/UL (140-440); RED BLOOD COUNT 3.49 10^6/ul (4.70-6.10); RED CELL DISTRIBUTION WIDTH 20.5 % (11.5-14.5); UNCORRECTED WBC 11.6 10^3/ul (4.8-10.8); WHITE BLOOD COUNT 11.6 10^3/ul (4.8-10.8)
[2016-09-06 05:23] LABS: CALCIUM 8.1 mg/dl (8.4-10.2)
[2016-09-06 05:25] LABS: MAGNESIUM 2.1 mg/dl (1.7-2.5); URIC ACID 3.3 mg/dl (3.1-7.9)
[2016-09-06 06:50] LABS: CONDITION 1; LH ANALYZER COMMENTS 1; SUSPECT 1
[2016-09-06] MEDS: ACCUCHECK XX SCH ×4 (07:50→21:00)
[2016-09-06] MEDS: GUAIFENESIN/DM 5ML CUP PO PRN ×3 (08:34→19:51)
[2016-09-06] MEDS: FLUTICASONE 0.05% 16 GM NAS SPRAY NASAL SCH (08:35)
[2016-09-06] MEDS: ALLOPURINOL 300 MG TAB PO SCH (08:35)
[2016-09-06] MEDS: SUCRALFATE 1 GM TAB PO SCH ×4 (08:35→21:04)
[2016-09-06] MEDS: INSULIN ASPART [NOVOLOG] 3 ML PEN SC SCH ×3 (08:36→17:27)
[2016-09-06] MEDS: SOD CHLORIDE 0.9% 1,000 ML IV SCH (08:42)
[2016-09-06 10:01] LABS: BASOPHIL # 0.2 10^3/ul (0.0-0.1); LYMPHOCYTES # 1.5 10^3/ul (0.8-2.9); MONOCYTE # 5.8 10^3/ul (0.3-0.9); MYELOCYTES # 0.1; NEUTROPHIL # 1.5 10^3/ul (1.6-7.5)
[2016-09-06 10:03] LABS: ANISOCYTOSIS 2+
[2016-09-06 10:04] LABS: HYPOCHROMASIA 2+; PLATELET ESTIMATE PLT APPEAR DECREASED; POLYCHROMASIA 1+
--- NOTE | 2016-09-06 11:37 | CONS ---
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 Pt has been started on 7+3 and is tolerating chemotherapy well. Problems: Additional Assessment/Plan -continue with induction chemotherapy 7+# . today is day 2 -s/p 1 units of platelets 09/02/16. 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 s/p BMBx 09/04/16, will f/u results. Discussed with Dr. Gallegos, her primary oncologist, who is ok with induction chemotherapy. -Discussed with patient's daughter Tawny ([phone]). Patient and family agreeable to induction chemotherapy with 7+3 -Tumor lysis labs ordered, allopurinol ordered -PICC line placed, CXR pending to confirm placement and eval for infiltrate given patient's cough - Patient will need to stay inpatient for 3-4 weeks to await count recovery and monitor for infection, transfusions, etc. Patient will need D14 bone marrow. Side effects and course explained to the patient and family. Cytarabine 100 mg/m2 CIV over 24 hours D1-7 Idarubicin 12 mg/m2 IVP D1-3 Consultation Date/Type/Reason Admit Date/Time Aug 31, 2016 at 00:38 Initial Consult Date 09/02/16 Type of Consultation: Hematology/Oncology Reason for Consultation AML Referring Provider: TAM ROSE 24 HR Interval Summary Free Text/Dictation started 7+3 yesterday. so far tolerating chemotherapy well. had 1 episode of blood streaked sputum yesterday Exam/Review of Systems Vital Signs Vitals Vital Signs Date Time Temp Pulse Resp B/P Pulse Ox O2 Delivery O2 Flow Rate FiO2 09/06/16 07:00 98.3 73 20 140/63 96 09/06/16 04:50 Room Air 09/04/16 21:23 2 Intake and Output 09/05/16 09/05/16 09/06/16 15:00 23:00 07:00 Intake Total 1298 ml 2549.9 ml Output Total 1200 ml 1800 ml Balance 98 ml 749.9 ml Exam Constitutional: alert, oriented Psych: no complaints Head: atraumatic Eyes: nl conjunctiva ENMT: nl external ears & nose, nl lips & teeth Neck: non-tender, supple Respiratory: clear to auscultation, normal air movement Cardiovascular: nl pulses, regular rate and rhythm Gastrointestinal: soft Musculoskeletal: other (LUE picc line in place) Neurological: SUPERVISOR FACEPIECE LINE II-XII intact Results Result Diagram: 09/06/1642409/06/16419 Results 24 hrs Laboratory Tests Test 09/05/16 12:17 09/05/16 14:10 09/05/16 14:15 09/05/16 17:03 Basophils # Basophils % Blast Cells % 16.0 H Blastocytes # 2.2 Blood Morphology Comment Eosinophils # 0.1 Eosinophils % 1.0 Hematocrit 32.2 L Hemoglobin 10.3 L Lymphocytes # 2.4 Lymphocytes % 17.0 Mean Corpuscular Hemoglobin 26.1 L Mean Corpuscular Hemoglobin Concent 31.9 L Mean Corpuscular Volume 81.8 L Mean Platelet Volume 6.7 L Monocytes # 5.6 H Monocytes % 40.0 H Myelocytes # 0.4 Myelocytes % 3.0 H Neutrophils # 2.9 Neutrophils % 21.0 L Nucleated Red Blood Cells # Nucleated Red Blood Cells % Platelet Count 67 L Platelet Estimate PLT APPEAR DECREASED Promyelocytes # 0.3 Promyelocytes % 2.0 H Red Blood Count 3.94 L Red Cell Distribution Width 21.4 H White Blood Count 13.9 H Alanine Aminotransferase (ALT/SGPT) 36 Albumin 3.0 L Albumin/Globulin Ratio 0.71 Alkaline Phosphatase 102 Anion Gap 16 Aspartate Amino Transf (AST/SGOT) 34 Blood Urea Nitrogen 12 Calcium Level 8.0 L Carbon Dioxide Level 24 Chloride Level 97 Creatinine 0.60 L Direct Bilirubin 0.00 Globulin 4.20 H Glucose Level 266 #H Indirect Bilirubin 0.5 Potassium Level 4.7 Sodium Level 132 L Total Bilirubin 0.5 Total Protein 7.2 Magnesium Level 1.9 Phosphorus Level 3.9 Bedside Glucose 242 H Test 09/05/16 19:58 09/06/16 04:20 09/06/16 04:25 09/06/16 07:35 Bedside Glucose 135 104 Anion Gap 12 Blood Urea Nitrogen 10 Calcium Level 8.1 L Carbon Dioxide Level 27 Chloride Level 105 Creatinine 0.74 Glucose Level 108 # Lactate Dehydrogenase 787 H Magnesium Level 2.1 Phosphorus Level 4.0 Potassium Level 4.6 Sodium Level 139 Uric Acid 3.3 Anisocytosis 2+ Band Neutrophils % 1.0 Basophils # 0.2 H Basophils % 2.0 Blast Cells % 18.0 H Blastocytes # 2.1 Blood Morphology Comment Eosinophils # Eosinophils % Hematocrit 28.9 L Hemoglobin 9.2 L Hypochromasia 2+ Lymphocytes # 1.5 Lymphocytes % 13.0 L Mean Corpuscular Hemoglobin 26.3 L Mean Corpuscular Hemoglobin Concent 31.8 L Mean Corpuscular Volume 82.7 Mean Platelet Volume 7.2 L Monocytes # 5.8 H Monocytes % 50.0 H Myelocytes # 0.1 Myelocytes % 1.0 H Neutrophils # 1.5 L Neutrophils % 13.0 L Nucleated Red Blood Cells # Nucleated Red Blood Cells % 5.0 H Platelet Count 50 #L Platelet Estimate PLT APPEAR DECREASED Polychromasia 1+ Promyelocytes # 0.2 Promyelocytes % 2.0 H Red Blood Count 3.49 L Red Cell Distribution Width 20.5 H White Blood Count 11.6 H Medications Medications Current Medications Miscellaneous Information 1 ea NOTE XX ; Start 08/31/16 at 02:00 Glucose (Glutose) 15 gm Q15M PRN PO DECREASED GLUCOSE; Start 08/31/16 at 02:00 Glucose (Glutose) 22.5 gm Q15M PRN PO DECREASED GLUCOSE; Start 08/31/16 at 02:00 Dextrose (D50w Syringe) 25 ml Q15M PRN IV DECREASED GLUCOSE; Start 08/31/16 at 02:00 Dextrose (D50w Syringe) 50 ml Q15M PRN IV DECREASED GLUCOSE; Start 08/31/16 at 02:00 Glucagon (Glucagen) 1 mg Q15M PRN IM DECREASED GLUCOSE; Start 08/31/16 at 02:00 Glucose (Glutose) 15 gm Q15M PRN BUCCAL DECREASED GLUCOSE; Start 08/31/16 at 02: 00 Fluticasone Propionate (Flonase 0.05% Nasal) 2 spray DAILY NASAL Last administered on 09/06/16t 08:35; Admin Dose 2 SPRAY; Start 08/31/16 at 09:00 Diagnostic Test (Pha) (Accucheck) 1 ea 02 XX ; Start 09/01/16 at 02:00 Insulin Glargine (Lantus) 18 unit QHS SC Last administered on 09/05/16 20:33; Admin Dose 18 UNIT; Start 09/01/16 at 00:00 Ondansetron HCl (Zofran Inj) 4 mg Q6H PRN IV NAUSEA AND/OR VOMITING; Start 09/01 at 11:30 Acetaminophen (Tylenol Tab) 650 mg Q6H PRN PO PAIN AND OR ELEVATED TEMP Last administered on 09/05/16 12:25; Admin Dose 650 MG; Start 09/01/16 at 11:30 Diphenhydramine HCl (Benadryl) 25 mg Q6H PRN PO ITCHING Last administered on 11:25; Admin Dose 25 MG; Start 09/01/16 at 11:30 Guaifenesin/ Dextromethorphan (Robitussin Dm Liquid Cup) 10 ml Q4H PRN PO COUGH Last administered on 09/06/16 08:34; Admin Dose 10 ML; Start 09/02/16 at 14:00 Allopurinol 300 mg 300 mg DAILY PO Last administered on 09/06/16 08:35; Admin Dose 300 MG; Start 09/04/16 at 16:30 Cytarabine 174 mg/ Sodium Chloride 500 ml @ 20.833 mls/ hr Q24H IVPB Last administered on 09/05/16 18:11; Admin Dose 20.833 MLS/HR; Start 09/05/16 at 18: 00; Stop 09/12/16 at 17:59 Idarubicin HCl/ Idarubicin HCl/ Sodium Chloride (Idamycin/ Idamycin/NS) 50 ml @ 100 mls/hr 17 IV Last administered on 09/05/16 16:43; Admin Dose 100 MLS/HR ; Start 09/05/16 at 17:00; Stop 09/07/16 at 17:29 Famotidine 20 mg 20 mg 1630 IV Last administered on 09/05/16 16:09; Admin Dose 20 MG; Start 09/05/16 at 16:30; Stop 09/11/16 at 16:31 Ondansetron HCl 16 mg/Dextrose 58 ml @ 212 mls/hr 1630 IV Last administered on 09/05/16 16:09; Admin Dose 212 MLS/HR; Start 09/05/16 at 16:30; Stop at 16:47 Sodium Chloride (NS) 1,000 ml @ 50 mls/hr Q20H IV Last administered on t 08:42; Admin Dose 50 MLS/HR; Start 09/05/16 at 12:00 IV Flush (NS 10 ml) 10 ml PRN PRN IV IV PROTOCOL; Start 09/05/16 at 12:30 MISHA FOREMAN M.D. Sep 06, 2016 11:37
--- NOTE | 2016-09-06 14:29 | PN ---
Date/Time of Note Date/Time of Note DATE: 09/06/16 TIME: 14:27 Assessment/Plan VTE Prophylaxis VTE Prophylaxis Intervention: SCD's Lines/Catheters IV Catheter Type (from Nrs): PICC Line Central line still needed: Yes (chemotherapy) Urinary Cath still in place: No Assessment/Plan Assessment/Plan [facility] 1. 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 Hb is stable at 9.2g/dl, s/p 4 units pRBC. Platelets also stable at 50k/ul with no active bleeding s/p 2 unit platelets. 30% blasts on flow cytometry per Hematology. AML confirmed on BM biopsy. Started induction chemotherapy yesterday following PICC line placement yesterday. * Continue chemo regimen per Dr. Ruiz: Cytarabine 100 mg/m2 CIV over 24 hours D1-7, Idarubicin 12 mg/m2 IVP D1-3 * Bone marrow repeat biopsy at day 14 anticipated * Allopurinol to prevent tumor lysis syndrome; LDH 787 today. 2. 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 HgbA1c 7.0%. Previous clinical suspicion for diabetic gastroparesis. Sugars stable currently at 108- 140 today. No solis source of infection and no fever. * Continue current Lantus * Stop sliding scale insulin, to better understand trend vis-a-vis eating. * Resumed Metformin since Mr. Grove started eating. * Zofran as needed 3. Mild hyponatremia: resolved 4. Chronic benign positional vertigo * Continue Meclizine PRN 5. Gastroesophageal reflux disease * Continue Protonix 6. URI with cough and sore throat, improved now. 7. Prophylaxis. Sequential compression devices to lower extremity for DVT prevention, PPI for GI ppx 8. DISPOSITION: Continue chemotherapy * Patient is Full-Code Flex Verde MD PhD [phone] Subjective 24 Hr Interval Summary Free Text/Dictation No visitors while I was there. Comfortable, good appetite, no nausea or headache. Exam/Review of Systems Vital Signs Vitals Vital Signs Date Time Temp Pulse Resp B/P Pulse Ox O2 Delivery O2 Flow Rate FiO2 09/06/16 11:49 98.3 64 20 151/68 98 Room Air 09/04/16 21:23 2 Intake and Output 09/05/16 09/05/16 09/06/16 15:00 23:00 07:00 Intake Total 1298 ml 2549.9 ml Output Total 1200 ml 1800 ml Balance 98 ml 749.9 ml Exam Constitutional: Well developed, cheerful, comfortable-appearing breathing on room air. Respiratory: Mild crackles at both bases. No wheezing. Good air movement. Cardiovascular: Symmetric pulses, regular rate and rhythm Gastrointestinal: non-tender, soft, no HSM. Musculoskeletal: nl extremities to inspection, with no edema, clubbing or cyanosis Neurological: BOOKBINDER CHIEF II-XII intact, nl mental status, nl speech, nl strength. Speaking in complete sentences, able to use a cell phone. Results Result Diagram: 09/06/16 0425 09/06/16 0420 Results 24 hrs Laboratory Tests Test 09/05/16 17:03 09/05/16 19:58 09/06/16 04:20 09/06/16 04:25 Bedside Glucose 242 H 135 Anion Gap 12 Blood Urea Nitrogen 10 Calcium Level 8.1 L Carbon Dioxide Level 27 Chloride Level 105 Creatinine 0.74 Glucose Level 108 # Lactate Dehydrogenase 787 H Magnesium Level 2.1 Phosphorus Level 4.0 Potassium Level 4.6 Sodium Level 139 Uric Acid 3.3 Anisocytosis 2+ Band Neutrophils % 1.0 Basophils # 0.2 H Basophils % 2.0 Blast Cells % 18.0 H Blastocytes # 2.1 Blood Morphology Comment Eosinophils # Eosinophils % Hematocrit 28.9 L Hemoglobin 9.2 L Hypochromasia 2+ Lymphocytes # 1.5 Lymphocytes % 13.0 L Mean Corpuscular Hemoglobin 26.3 L Mean Corpuscular Hemoglobin Concent 31.8 L Mean Corpuscular Volume 82.7 Mean Platelet Volume 7.2 L Monocytes # 5.8 H Monocytes % 50.0 H Myelocytes # 0.1 Myelocytes % 1.0 H Neutrophils # 1.5 L Neutrophils % 13.0 L Nucleated Red Blood Cells # Nucleated Red Blood Cells % 5.0 H Platelet Count 50 #L Platelet Estimate PLT APPEAR DECREASED Polychromasia 1+ Promyelocytes # 0.2 Promyelocytes % 2.0 H Red Blood Count 3.49 L Red Cell Distribution Width 20.5 H White Blood Count 11.6 H Test 09/06/16 07:35 09/06/16 11:45 Bedside Glucose 104 140 Medications Medications Current Medications Miscellaneous Information 1 ea NOTE XX ; Start 08/31/16 at 02:00 Glucose (Glutose) 15 gm Q15M PRN PO DECREASED GLUCOSE; Start 08/31/16 at 02:00 Glucose (Glutose) 22.5 gm Q15M PRN PO DECREASED GLUCOSE; Start 08/31/16 at 02:00 Dextrose (D50w Syringe) 25 ml Q15M PRN IV DECREASED GLUCOSE; Start 08/31/16 at 02:00 Dextrose (D50w Syringe) 50 ml Q15M PRN IV DECREASED GLUCOSE; Start 08/31/16 at 02:00 Glucagon (Glucagen) 1 mg Q15M PRN IM DECREASED GLUCOSE; Start 08/31/16 at 02:00 Glucose (Glutose) 15 gm Q15M PRN BUCCAL DECREASED GLUCOSE; Start 08/31/16 at 02: 00 Fluticasone Propionate (Flonase 0.05% Nasal) 2 spray DAILY NASAL Last administered on 09/06/16 08:35; Admin Dose 2 SPRAY; Start 08/31/16 at 09:00 Diagnostic Test (Pha) (Accucheck) 1 ea 02 XX ; Start 09/01/16 at 02:00 Insulin Glargine (Lantus) 18 unit QHS SC Last administered on 09/05/16 20:33; Admin Dose 18 UNIT; Start 09/01/16 at 00:00 Ondansetron HCl (Zofran Inj) 4 mg Q6H PRN IV NAUSEA AND/OR VOMITING; Start 09/01 at 11:30 Acetaminophen (Tylenol Tab) 650 mg Q6H PRN PO PAIN AND OR ELEVATED TEMP Last administered on 09/05/16 12:25; Admin Dose 650 MG; Start 09/01/16 at 11:30 Diphenhydramine HCl (Benadryl) 25 mg Q6H PRN PO ITCHING Last administered on 11:25; Admin Dose 25 MG; Start 09/01/16 at 11:30 Guaifenesin/ Dextromethorphan (Robitussin Dm Liquid Cup) 10 ml Q4H PRN PO COUGH Last administered on 09/06/16 08:34; Admin Dose 10 ML; Start 09/02/16 at 14:00 Allopurinol 300 mg 300 mg DAILY PO Last administered on 09/06/16 08:35; Admin Dose 300 MG; Start 09/04/16 at 16:30 Cytarabine 174 mg/ Sodium Chloride 500 ml @ 20.833 mls/ hr Q24H IVPB Last administered on 09/05/16 18:11; Admin Dose 20.833 MLS/HR; Start 09/05/16 at 18: 00; Stop 09/12/16 at 17:59 Idarubicin HCl/ Idarubicin HCl/ Sodium Chloride (Idamycin/ Idamycin/NS) 50 ml @ 100 mls/hr 17 IV Last administered on 09/05/16 16:43; Admin Dose 100 MLS/HR ; Start 09/05/16 at 17:00; Stop 09/07/16 at 17:29 Famotidine 20 mg 20 mg 1630 IV Last administered on 09/05/16 16:09; Admin Dose 20 MG; Start 09/05/16 at 16:30; Stop 09/11/16 at 16:31 Ondansetron HCl 16 mg/Dextrose 58 ml @ 212 mls/hr 1630 IV Last administered on 09/05/16 16:09; Admin Dose 212 MLS/HR; Start 09/05/16 at 16:30; Stop at 16:47 Sodium Chloride (NS) 1,000 ml @ 50 mls/hr Q20H IV Last administered on 08:42; Admin Dose 50 MLS/HR; Start 09/05/16 at 12:00 IV Flush (NS 10 ml) 10 ml PRN PRN IV IV PROTOCOL; Start 09/05/16 at 12:30 SYDNIE VERDE M.D. Sep 06, 2016 14:29
[2016-09-06] MEDS: ACETAMINOPHEN 325 MG TAB PO PRN (17:28)
[2016-09-06] MEDS: INSULIN GLARGINE [LANtus] 3 ML PEN SC SCH (20:53)
[2016-09-06] MEDS: ONDANSETRON INJ 16 MG in DEXTROSE 5% 50 ML IV SCH (20:55)
[2016-09-06] MEDS: FAMOTIDINE 20 MG INJ IV SCH (20:57)
[2016-09-06] MEDS: IDARUBICIN IV SCH (21:45)
[2016-09-06] MEDS: SOD CHLORIDE 0.9% IV SCH (21:45)
[2016-09-06] MEDS: SOD CHLORIDE 0.9% IVPB SCH (22:58)
[2016-09-06] MEDS: CYTARABINE IVPB SCH (22:58)
[2016-09-07 00:15] VITALS: BP 154/67; PULSE 67; RESP 18
[2016-09-07] MEDS: GUAIFENESIN/DM 5ML CUP PO PRN ×2 (00:32→21:32)
[2016-09-07] MEDS: ACCUCHECK AT 2AM (Patients on SS coverage) XX SCH (02:00)
[2016-09-07 04:30] VITALS: BP 131/61; PULSE 71; RESP 16
[2016-09-07] MEDS: SOD CHLORIDE 0.9% 1,000 ML IV SCH (05:00)
[2016-09-07 05:12] LABS: HEMATOCRIT 27.2 % (42.0-52.0); HEMOGLOBIN 8.7 g/dl (14.0-18.0); MEAN CORPUSCULAR HEMOGLOBIN 26.5 pg (29.0-33.0); MEAN CORPUSCULAR VOLUME 82.9 fl (82.0-101.0); PLATELET COUNT 37 10^3/UL (140-440); RED BLOOD COUNT 3.28 10^6/ul (4.70-6.10); UNCORRECTED WBC 9.2 10^3/ul (4.8-10.8); WHITE BLOOD COUNT 9.2 10^3/ul (4.8-10.8)
[2016-09-07 05:23] LABS: CONDITION 1; LH ANALYZER COMMENTS 1; MEAN PLATELET VOLUME 8.9 fl (7.4-10.4); SUSPECT 1
[2016-09-07 05:27] LABS: URIC ACID 3.4 mg/dl (3.1-7.9)
[2016-09-07 05:54] LABS: ALBUMIN 2.7 g/dl (3.3-4.9); POTASSIUM 4.3 mmol/L (3.5-5.1)
[2016-09-07 05:56] LABS: CREATININE 0.65 mg/dl (0.61-1.24)
[2016-09-07 05:57] LABS: ALBUMIN/GLOBULIN RATIO 0.67; BILIRUBIN,INDIRECT 0.4 mg/dl (0-1.1); BILIRUBIN,TOTAL 0.4 mg/dl (0.2-1.3); CALCIUM 8.1 mg/dl (8.4-10.2); TOTAL PROTEIN 6.7 g/dl (6.1-8.1)
[2016-09-07] MEDS: INSULIN ASPART [NOVOLOG] 3 ML PEN SC SCH ×3 (07:50→17:55)
[2016-09-07] MEDS: ACCUCHECK XX SCH ×4 (07:50→20:17)
[2016-09-07 07:55] VITALS: BP 140/63; RESP 17
[2016-09-07] MEDS: SUCRALFATE 1 GM TAB PO SCH ×4 (09:13→20:13)
[2016-09-07] MEDS: FLUTICASONE 0.05% 16 GM NAS SPRAY NASAL SCH (09:14)
[2016-09-07] MEDS: ALLOPURINOL 300 MG TAB PO SCH (09:14)
[2016-09-07 11:13] LABS: BASOPHIL # 0.2 10^3/ul (0.0-0.1); LYMPHOCYTES # 1.7 10^3/ul (0.8-2.9); MONOCYTE # 4.4 10^3/ul (0.3-0.9); NEUTROPHIL # 0.9 10^3/ul (1.6-7.5)
[2016-09-07 11:14] LABS: ANISOCYTOSIS 2+; HYPOCHROMASIA 2+; PLATELET ESTIMATE PLT APPEAR DECREASED
[2016-09-07 11:48] VITALS: BP 143/66; RESP 18
[2016-09-07 16:30] VITALS: BP 124/64; PULSE 64; RESP 16
[2016-09-07] MEDS: INSULIN GLARGINE [LANtus] 3 ML PEN SC SCH (20:15)
[2016-09-07 20:19] VITALS: BP 153/68; RESP 18
[2016-09-07] MEDS: FAMOTIDINE 20 MG INJ IV SCH (23:32)
[2016-09-07] MEDS: ONDANSETRON INJ 16 MG in DEXTROSE 5% 50 ML IV SCH (23:33)
[2016-09-08] VITALS (12 sets, daily range): BP systolic 131–159; BP diastolic 58–77; PULSE 66–101; RESP 18
[2016-09-08] MEDS: SOD CHLORIDE 0.9% IV SCH (00:06)
[2016-09-08] MEDS: IDARUBICIN IV SCH (00:06)
[2016-09-08] MEDS: CYTARABINE IVPB SCH (01:01)
[2016-09-08] MEDS: SOD CHLORIDE 0.9% IVPB SCH (01:01)
[2016-09-08] MEDS: SOD CHLORIDE 0.9% 1,000 ML IV SCH ×2 (01:11→21:39)
[2016-09-08] MEDS: ACCUCHECK AT 2AM (Patients on SS coverage) XX SCH (02:00)
[2016-09-08] MEDS: GUAIFENESIN/DM 5ML CUP PO PRN ×2 (04:57→21:40)
[2016-09-08 05:59] LABS: HEMATOCRIT 27.5 % (42.0-52.0); HEMOGLOBIN 8.8 g/dl (14.0-18.0); MEAN CORPUSCULAR HEMOGLOBIN 26.1 pg (29.0-33.0); MEAN CORPUSCULAR HGB CONC 31.8 g/dl (32.0-37.0); MEAN CORPUSCULAR VOLUME 82.2 fl (82.0-101.0); MEAN PLATELET VOLUME 10.7 fl (7.4-10.4); RED BLOOD COUNT 3.35 10^6/ul (4.70-6.10); RED CELL DISTRIBUTION WIDTH 20.4 % (11.5-14.5); UNCORRECTED WBC 5.9 10^3/ul (4.8-10.8); WHITE BLOOD COUNT 5.9 10^3/ul (4.8-10.8)
[2016-09-08 06:03] LABS: POTASSIUM 4.2 mmol/L (3.5-5.1)
[2016-09-08 06:05] LABS: ALBUMIN/GLOBULIN RATIO 0.68; BILIRUBIN,INDIRECT 0.3 mg/dl (0-1.1); BILIRUBIN,TOTAL 0.3 mg/dl (0.2-1.3); CREATININE 0.64 mg/dl (0.61-1.24); TOTAL PROTEIN 7.4 g/dl (6.1-8.1)
[2016-09-08 06:06] LABS: CALCIUM 8.5 mg/dl (8.4-10.2)
[2016-09-08 06:07] LABS: URIC ACID 3.5 mg/dl (3.1-7.9)
[2016-09-08 06:14] LABS: CONDITION 1; LH ANALYZER COMMENTS 1; SUSPECT 1
[2016-09-08 06:16] LABS: PLATELET COUNT 27 10^3/UL (140-440)
[2016-09-08] MEDS: INSULIN ASPART [NOVOLOG] 3 ML PEN SC SCH ×3 (07:50→17:40)
[2016-09-08] MEDS: ACCUCHECK XX SCH ×4 (07:50→21:00)
[2016-09-08] MEDS: SUCRALFATE 1 GM TAB PO SCH ×4 (09:04→21:38)
[2016-09-08] MEDS: ALLOPURINOL 300 MG TAB PO SCH (09:04)
[2016-09-08] MEDS: FLUTICASONE 0.05% 16 GM NAS SPRAY NASAL SCH (09:04)
[2016-09-08 09:29] LABS: BASOPHIL # 0.1 10^3/ul (0.0-0.1); EOSINOPHILS # 0.1 10^3/ul (0.0-0.5); LYMPHOCYTES # 1.1 10^3/ul (0.8-2.9); MONOCYTE # 2.4 10^3/ul (0.3-0.9); MYELOCYTES # 0.1
--- NOTE | 2016-09-08 11:50 | PN ---
Date/Time of Note Date/Time of Note DATE: 09/08/16 TIME: 11:42 Assessment/Plan VTE Prophylaxis VTE Prophylaxis Intervention: SCD's Lines/Catheters IV Catheter Type (from Nrsg): PICC Line Central line still needed: Yes (for Chemo ) Urinary Cath still in place: No Assessment/Plan Assessment/Plan 71 yo male with: 1. Acute Myeloid Leukemia, new diagnosis, transformation from CMML, Hb has been stable now s/p 4 units pRBC and 2 units platelets on admission Monitor platelets and blasts count On Chemo, follow up Hematology recs and counts . 2. Diabetes mellitus, with associated neuropathy manifest by numbness in both feet. Previous clinical suspicion for diabetic gastroparesis. He has moderate hyperglycemia this time, for reasons unclear. No solis source of infection identified, and he has no fever. Continue Lantus and SSI, will resume Metformin as patient tolerating po well Zofran as needed 3. Chronic benign positional vertigo. Continue Meclizine PRN 4. Gastroesophageal reflux disease. Continue Protonix 6.URI with cough and sore throat: CXR stable on admission, symptomatic treatment. Prophylaxis. Sequential compression devices to lower extremity for DVT prevention, PPI for GI ppx DISPOSITION: On induction chemo Subjective 24 Hr Interval Summary Free Text/Dictation Patient remains stable on Chemo No complaints except sore throat from coughing Exam/Review of Systems Vital Signs Vitals Vital Signs Date Time Temp Pulse Resp B/P Pulse Ox O2 Delivery O2 Flow Rate FiO2 09/08/16 08:16 98.4 71 18 148/70 98 09/08/16 05:41 Room Air 09/04/16 21:23 2 Intake and Output 09/07/16 09/07/16 09/08/16 15:00 23:00 07:00 Intake Total 1700 ml 1928 ml Output Total 1500 ml 1600 ml Balance 200 ml 328 ml Exam Constitutional: alert, oriented, well developed Cardiovascular: nl pulses, regular rate and rhythm Gastrointestinal: non-tender, soft Musculoskeletal: nl extremities to inspection Extremities: normal pulses, other (no edema, clubbing or cyanosis ) Neurological: MUSIC ARTIST II-XII intact, nl mental status, nl speech, other (improved weakness generalised ) Results Result Diagram: 09/08/16 0425 09/08/16 0425 Results 24 hrs Laboratory Tests Test 09/07/16 16:38 09/07/16 20:11 09/08/16 02:22 09/08/16 04:25 Bedside Glucose 79 149 190 Alanine Aminotransferase (ALT/SGPT) 23 Albumin 3.0 L Albumin/Globulin Ratio 0.68 Alkaline Phosphatase 87 Anion Gap 15 Aspartate Amino Transf (AST/SGOT) 22 Band Neutrophils % 3.0 Basophils # 0.1 Basophils % 1.0 Blast Cells % 16.0 H Blastocytes # 0.9 Blood Morphology Comment Blood Urea Nitrogen 11 Calcium Level 8.5 Carbon Dioxide Level 27 Chloride Level 103 Creatinine 0.64 Differential Comment MANUAL DIFF Direct Bilirubin 0.00 Eosinophils # 0.1 Eosinophils % 2.0 Globulin 4.40 H Glucose Level 93 Hematocrit 27.5 L Hemoglobin 8.8 L Indirect Bilirubin 0.3 Lactate Dehydrogenase 708 H Lymphocytes # 1.1 Lymphocytes % 19.0 Mean Corpuscular Hemoglobin 26.1 L Mean Corpuscular Hemoglobin Concent 31.8 L Mean Corpuscular Volume 82.2 Mean Platelet Volume 10.7 #H Metamyelocytes # 0.1 Metamyelocytes % 1.0 H Monocytes # 2.4 H Monocytes % 40.0 H Myelocytes # 0.1 Myelocytes % 1.0 H Neutrophils # 1.0 L Neutrophils % 17.0 L Nucleated Red Blood Cells # Nucleated Red Blood Cells % Platelet Count 27 #*L Potassium Level 4.2 Red Blood Count 3.35 L Red Cell Distribution Width 20.4 H Sodium Level 141 Total Bilirubin 0.3 Total Protein 7.4 Uric Acid 3.5 White Blood Count 5.9 # Test 09/08/16 08:05 Bedside Glucose 71 Medications Medications Current Medications Miscellaneous Information 1 ea NOTE XX ; Start 08/31/16 at 02:00 Glucose (Glutose) 15 gm Q15M PRN PO DECREASED GLUCOSE; Start 08/31/16 at 02:00 Glucose (Glutose) 22.5 gm Q15M PRN PO DECREASED GLUCOSE; Start 08/31/16 at 02:00 Dextrose (D50w Syringe) 25 ml Q15M PRN IV DECREASED GLUCOSE; Start 08/31/16 at 02:00 Dextrose (D50w Syringe) 50 ml Q15M PRN IV DECREASED GLUCOSE; Start 08/31/16 at 02:00 Glucagon (Glucagen) 1 mg Q15M PRN IM DECREASED GLUCOSE; Start 08/31/16 at 02:00 Glucose (Glutose) 15 gm Q15M PRN BUCCAL DECREASED GLUCOSE; Start 08/31/16 at 02: 00 Fluticasone Propionate (Flonase 0.05% Nasal) 2 spray DAILY NASAL Last administered on 09/08/16 09:04; Admin Dose 2 SPRAY; Start 08/31/16 at 09:00 Diagnostic Test (Pha) (Accucheck) 1 ea 02 XX ; Start 09/01/16 at 02:00 Insulin Glargine (Lantus) 18 unit QHS SC Last administered on 09/07/16 20:15; Admin Dose 18 UNIT; Start 09/01/16 at 00:00 Ondansetron HCl (Zofran Inj) 4 mg Q6H PRN IV NAUSEA AND/OR VOMITING; Start 09/01 at 11:30 Acetaminophen (Tylenol Tab) 650 mg Q6H PRN PO PAIN AND OR ELEVATED TEMP Last administered on 09/06/16 17:28; Admin Dose 650 MG; Start 09/01/16 at 11:30 Diphenhydramine HCl (Benadryl) 25 mg Q6H PRN PO ITCHING Last administered on 11:25; Admin Dose 25 MG; Start 09/01/16 at 11:30 Guaifenesin/ Dextromethorphan (Robitussin Dm Liquid Cup) 10 ml Q4H PRN PO COUGH Last administered on 09/08/16 04:57; Admin Dose 10 ML; Start 09/02/16 at 14:00 Allopurinol 300 mg 300 mg DAILY PO Last administered on 09/08/16 09:04; Admin Dose 300 MG; Start 09/04/16 at 16:30 Cytarabine/Sodium Chloride (Letty C/NS) 500 ml @ 20.833 mls/ hr Q24H IVPB Last administered on 09/08/16 01:01; Admin Dose 20.833 MLS/HR; Start 09/05/16 at 18: 00; Stop 09/12/16 at 17:59 Famotidine 20 mg 20 mg 1630 IV Last administered on 09/07/16 23:32; Admin Dose 20 MG; Start 09/05/16 at 16:30; Stop 09/11/16 at 16:31 Ondansetron HCl 16 mg/Dextrose 58 ml @ 212 mls/hr 1630 IV Last administered on 09/07/16 23:33; Admin Dose 212 MLS/HR; Start 09/05/16 at 16:30; Stop at 16:47 Sodium Chloride (NS) 1,000 ml @ 50 mls/hr Q20H IV Last administered on 01:11; Admin Dose 50 MLS/HR; Start 09/05/16 at 12:00 IV Flush (NS 10 ml) 10 ml PRN PRN IV IV PROTOCOL; Start 09/05/16 at 12:30 TAM ROSE Sep 08, 2016 11:50
[2016-09-08] MEDS ORDERED: BISACODYL 10 MG SUPP PR PRN (12:00)
[2016-09-08] MEDS ORDERED: MAGNESIUM HYDROXIDE 30ML CUP PO PRN (12:00)
[2016-09-08] MEDS: POLYETHYLENE GLYCOL 17 GM PACKET PO SCH (13:28)
--- NOTE | 2016-09-08 14:43 | CONS ---
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 Pt has been started on 7+3 and is tolerating chemotherapy well. Problems: Additional Assessment/Plan -continue with induction chemotherapy 7+# . today is day 5 -s/p 1 units of platelets 09/02/16. 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 s/p BMBx 09/04/16, will f/u results. Discussed with Dr. Gallgeos, her primary oncologist, who is ok with induction chemotherapy. -Discussed with patient's daughter Tawny ([phone]). Patient and family agreeable to induction chemotherapy with 7+3 -Tumor lysis labs ordered, allopurinol ordered -PICC line placed, CXR pending to confirm placement and eval for infiltrate given patient's cough - Patient will need to stay inpatient for 3-4 weeks to await count recovery and monitor for infection, transfusions, etc. Patient will need D14 bone marrow. Side effects and course explained to the patient and family. Cytarabine 100 mg/m2 CIV over 24 hours D1-7 Idarubicin 12 mg/m2 IVP D1-3 Consultation Date/Type/Reason Admit Date/Time Aug 31, 2016 at 00:38 Initial Consult Date 09/02/16 Type of Consultation: Hematology/Oncology Reason for Consultation AML Referring Provider: TAM ROSE 24 HR Interval Summary Free Text/Dictation no acute overnight events Exam/Review of Systems Vital Signs Vitals Vital Signs Date Time Temp Pulse Resp B/P Pulse Ox O2 Delivery O2 Flow Rate FiO2 09/08/16 08:16 98.4 71 18 148/70 98 09/08/16 05:41 Room Air 09/04/16 21:23 2 Intake and Output 09/07/16 09/07/16 09/08/16 14:59 22:59 06:59 Intake Total 1700 ml 1928 ml Output Total 1500 ml 1600 ml Balance 200 ml 328 ml Exam Constitutional: alert, oriented Psych: no complaints Head: atraumatic, normocephalic Eyes: nl conjunctiva ENMT: nl external ears & nose, nl lips & teeth Neck: non-tender, supple Respiratory: clear to auscultation, normal air movement Cardiovascular: regular rate and rhythm Gastrointestinal: soft Musculoskeletal: nl extremities to inspection, nl gait and stance Results Result Diagram: 09/08/165 09/08/16 0425 Results 24 hrs Laboratory Tests Test 09/07/16 16:38 09/07/16 20:11 09/08/16 02:22 09/08/16 04:25 Bedside Glucose 79 149 190 Alanine Aminotransferase (ALT/SGPT) 23 Albumin 3.0 L Albumin/Globulin Ratio 0.68 Alkaline Phosphatase 87 Anion Gap 15 Aspartate Amino Transf (AST/SGOT) 22 Band Neutrophils % 3.0 Basophils # 0.1 Basophils % 1.0 Blast Cells % 16.0 H Blastocytes # 0.9 Blood Morphology Comment Blood Urea Nitrogen 11 Calcium Level 8.5 Carbon Dioxide Level 27 Chloride Level 103 Creatinine 0.64 Differential Comment MANUAL DIFF Direct Bilirubin 0.00 Eosinophils # 0.1 Eosinophils % 2.0 Globulin 4.40 H Glucose Level 93 Hematocrit 27.5 L Hemoglobin 8.8 L Indirect Bilirubin 0.3 Lactate Dehydrogenase 708 H Lymphocytes # 1.1 Lymphocytes % 19.0 Mean Corpuscular Hemoglobin 26.1 L Mean Corpuscular Hemoglobin Concent 31.8 L Mean Corpuscular Volume 82.2 Mean Platelet Volume 10.7 #H Metamyelocytes # 0.1 Metamyelocytes % 1.0 H Monocytes # 2.4 H Monocytes % 40.0 H Myelocytes # 0.1 Myelocytes % 1.0 H Neutrophils # 1.0 L Neutrophils % 17.0 L Nucleated Red Blood Cells # Nucleated Red Blood Cells % Platelet Count 27 #*L Potassium Level 4.2 Red Blood Count 3.35 L Red Cell Distribution Width 20.4 H Sodium Level 141 Total Bilirubin 0.3 Total Protein 7.4 Uric Acid 3.5 White Blood Count 5.9 # Test 09/08/16 08:05 09/08/16 12:01 Bedside Glucose 71 179 Medications Medications Current Medications Miscellaneous Information 1 ea NOTE XX ; Start 08/31/16 at 02:00 Glucose (Glutose) 15 gm Q15M PRN PO DECREASED GLUCOSE; Start 08/31/16 at 02:00 Glucose (Glutose) 22.5 gm Q15M PRN PO DECREASED GLUCOSE; Start 08/31/16 at 02:00 Dextrose (D50w Syringe) 25 ml Q15M PRN IV DECREASED GLUCOSE; Start 08/31/16 at 02:00 Dextrose (D50w Syringe) 50 ml Q15M PRN IV DECREASED GLUCOSE; Start 08/31/16 at 02:00 Glucagon (Glucagen) 1 mg Q15M PRN IM DECREASED GLUCOSE; Start 08/31/16 at 02:00 Glucose (Glutose) 15 gm Q15M PRN BUCCAL DECREASED GLUCOSE; Start 08/31/16 at 02: 00 Fluticasone Propionate (Flonase 0.05% Nasal) 2 spray DAILY NASAL Last administered on 09/08/16 09:04; Admin Dose 2 SPRAY; Start 08/31/16 at 09:00 Diagnostic Test (Pha) (Accucheck) 1 ea 02 XX ; Start 09/01/16 at 02:00 Insulin Glargine (Lantus) 18 unit QHS SC Last administered on 09/07/16 20:15; Admin Dose 18 UNIT; Start 09/01/16 at 00:00 Ondansetron HCl (Zofran Inj) 4 mg Q6H PRN IV NAUSEA AND/OR VOMITING; Start 09/01 at 11:30 Acetaminophen (Tylenol Tab) 650 mg Q6H PRN PO PAIN AND OR ELEVATED TEMP Last administered on 09/06/16 17:28; Admin Dose 650 MG; Start 09/01/16 at 11:30 Diphenhydramine HCl (Benadryl) 25 mg Q6H PRN PO ITCHING Last administered on 11:25; Admin Dose 25 MG; Start 09/01/16 at 11:30 Guaifenesin/ Dextromethorphan (Robitussin Dm Liquid Cup) 10 ml Q4H PRN PO COUGH Last administered on 09/08/16 04:57; Admin Dose 10 ML; Start 09/02/16 at 14:00 Allopurinol 300 mg 300 mg DAILY PO Last administered on 09/08/16 09:04; Admin Dose 300 MG; Start 09/04/16 at 16:30 Cytarabine/Sodium Chloride (Letty C/NS) 500 ml @ 20.833 mls/ hr Q24H IVPB Last administered on 09/08/16 01:01; Admin Dose 20.833 MLS/HR; Start 09/05/16 at 18: 00; Stop 09/12/16 at 17:59 Famotidine 20 mg 20 mg 1630 IV Last administered on 09/07/16 23:32; Admin Dose 20 MG; Start 09/05/16 at 16:30; Stop 09/11/16 at 16:31 Ondansetron HCl 16 mg/Dextrose 58 ml @ 212 mls/hr 1630 IV Last administered on 09/07/16 23:33; Admin Dose 212 MLS/HR; Start 09/05/16 at 16:30; Stop at 16:47 Sodium Chloride (NS) 1,000 ml @ 50 mls/hr Q20H IV Last administered on 01:11; Admin Dose 50 MLS/HR; Start 09/05/16 at 12:00 IV Flush (NS 10 ml) 10 ml PRN PRN IV IV PROTOCOL; Start 09/05/16 at 12:30 Bisacodyl (Dulcolax Supp) 10 mg DAILY PRN [place] CONSTIPATION; Start 09/08/16 at 12 :00 Magnesium Hydroxide (Milk Of Mag) 30 ml DAILY PRN PO CONSTIPATION; Start at 12:00 Polyethylene Glycol (Miralax) 17 gm DAILY PO Last administered on 09/08/16 13: 28; Admin Dose 17 GM; Start 09/08/16 at 12:00 Docusate Sodium (Colace) 100 mg BID PO ; Start 09/08/16 at 21:00 Phenol (Cepastat Lozenge) 1 lozenge Q1H PRN MT SORE THROAT; Start 09/08/16 at 12:00 MISHA FOREMAN M.D. Sep 08, 2016 14:43
[2016-09-08] MEDS: DOCUSATE SODIUM 100 MG CAP PO SCH (21:38)
[2016-09-08] MEDS: CEPASTAT LOZENGE MT PRN (21:40)
[2016-09-08] MEDS: ACETAMINOPHEN 325 MG TAB PO PRN (21:40)
[2016-09-08] MEDS: INSULIN GLARGINE [LANtus] 3 ML PEN SC SCH (21:42)
[2016-09-09] VITALS (10 sets, daily range): BP systolic 116–160; BP diastolic 56–75; PULSE 58–69; RESP 18
[2016-09-09] MEDS: ONDANSETRON INJ 16 MG in DEXTROSE 5% 50 ML IV SCH (01:03)
[2016-09-09] MEDS: FAMOTIDINE 20 MG INJ IV SCH (01:03)
[2016-09-09] MEDS: ACCUCHECK AT 2AM (Patients on SS coverage) XX SCH (02:00)
[2016-09-09] MEDS: CYTARABINE IVPB SCH (02:08)
[2016-09-09] MEDS: SOD CHLORIDE 0.9% IVPB SCH (02:08)
[2016-09-09 05:56] LABS: ALBUMIN 2.7 g/dl (3.3-4.9)
[2016-09-09 05:57] LABS: POTASSIUM 4.3 mmol/L (3.5-5.1)
[2016-09-09 05:59] LABS: ALBUMIN/GLOBULIN RATIO 0.64; BILIRUBIN,INDIRECT 0.4 mg/dl (0-1.1); BILIRUBIN,TOTAL 0.4 mg/dl (0.2-1.3); CREATININE 0.63 mg/dl (0.61-1.24); TOTAL PROTEIN 6.9 g/dl (6.1-8.1)
[2016-09-09 06:00] LABS: CALCIUM 8.5 mg/dl (8.4-10.2)
[2016-09-09 06:29] LABS: HEMATOCRIT 27.1 % (42.0-52.0); HEMOGLOBIN 8.7 g/dl (14.0-18.0); MEAN CORPUSCULAR HEMOGLOBIN 26.2 pg (29.0-33.0); MEAN CORPUSCULAR VOLUME 81.9 fl (82.0-101.0); RED CELL DISTRIBUTION WIDTH 19.9 % (11.5-14.5)
[2016-09-09 06:30] LABS: URIC ACID 3.4 mg/dl (3.1-7.9)
[2016-09-09 06:41] LABS: MEAN PLATELET VOLUME 7.8 fl (7.4-10.4)
[2016-09-09 06:42] LABS: CONDITION 1; LH ANALYZER COMMENTS 1; SUSPECT 1
[2016-09-09 06:43] LABS: PLATELET COUNT 11 10^3/UL (140-440)
[2016-09-09 09:48] LABS: BASOPHIL # 0.1 10^3/ul (0.0-0.1); EOSINOPHILS # 0.2 10^3/ul (0.0-0.5); LYMPHOCYTES # 0.8 10^3/ul (0.8-2.9); MONOCYTE # 0.6 10^3/ul (0.3-0.9); MYELOCYTES # 0.1; NEUTROPHIL # 0.8 10^3/ul (1.6-7.5); PLATELET ESTIMATE PLT APPEAR DECREASED
[2016-09-09] MEDS: ACCUCHECK XX SCH ×4 (09:58→21:00)
[2016-09-09] MEDS: SUCRALFATE 1 GM TAB PO SCH ×4 (10:00→20:28)
[2016-09-09] MEDS: DOCUSATE SODIUM 100 MG CAP PO SCH ×2 (10:00→20:28)
[2016-09-09] MEDS: ALLOPURINOL 300 MG TAB PO SCH (10:00)
[2016-09-09] MEDS: POLYETHYLENE GLYCOL 17 GM PACKET PO SCH (10:00)
[2016-09-09] MEDS: FLUTICASONE 0.05% 16 GM NAS SPRAY NASAL SCH (10:01)
[2016-09-09] MEDS: INSULIN ASPART [NOVOLOG] 3 ML PEN SC SCH ×3 (10:36→17:46)
--- NOTE | 2016-09-09 14:59 | CONS ---
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 Pt has been started on 7+3 and is tolerating chemotherapy well. Problems: Additional Assessment/Plan -continue with induction chemotherapy 7+3 . today is day 6. -s/p 1 units of platelets 09/02/16. 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 s/p BMBx 09/04/16, will f/u results. Discussed with Dr. Gallegos, her primary oncologist, who is ok with induction chemotherapy. -Discussed with patient's daughter Tawny ([phone]). Patient and family agreeable to induction chemotherapy with 7+3 -Tumor lysis labs ordered, allopurinol ordered -PICC line placed, CXR pending to confirm placement and eval for infiltrate given patient's cough - Patient will need to stay inpatient for 3-4 weeks to await count recovery and monitor for infection, transfusions, etc. Patient will need D14 bone marrow. Side effects and course explained to the patient and family. Cytarabine 100 mg/m2 CIV over 24 hours D1-7 Idarubicin 12 mg/m2 IVP D1-3 Consultation Date/Type/Reason Admit Date/Time Aug 31, 2016 at 00:38 Initial Consult Date 09/02/16 Type of Consultation: Hematology/Oncology Reason for Consultation AML Referring Provider: TAM ROSE 24 HR Interval Summary Free Text/Dictation no acute overnight events. pt is tolerating chemotherapy well. no bleeding. no fevers Exam/Review of Systems Vital Signs Vitals Vital Signs Date Time Temp Pulse Resp B/P Pulse Ox O2 Delivery O2 Flow Rate FiO2 09/09/16 07:49 98.3 65 18 151/68 97 09/09/16 06:29 Room Air Intake and Output 09/08/16 09/08/16 09/09/16 15:00 23:00 07:00 Intake Total 1730 ml 1608 ml Output Total 1800 ml 1500 ml Balance -70 ml 108 ml Exam Constitutional: alert, oriented Head: atraumatic, normocephalic Eyes: nl conjunctiva ENMT: nl external ears & nose Neck: non-tender, supple Respiratory: clear to auscultation, normal air movement Cardiovascular: nl pulses, regular rate and rhythm Gastrointestinal: soft Musculoskeletal: nl extremities to inspection, nl gait and stance Extremities: normal pulses 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 Results Result Diagram: 09/09/16 0430 09/09/16 0500 Results 24 hrs Laboratory Tests Test 09/08/16 16:53 09/08/16 21:36 09/09/16 02:09 09/09/16 04:30 Bedside Glucose 180 205 139 Band Neutrophils % 4.0 Basophils # 0.1 Basophils % 2.0 Blast Cells % 13.0 H Blastocytes # 0.4 Blood Morphology Comment Differential Comment MANUAL DIFF Eosinophils # 0.2 Eosinophils % 6.0 Hematocrit 27.1 L Hemoglobin 8.7 L Lactate Dehydrogenase 688 H Lymphocytes # 0.8 Lymphocytes % 25.0 Mean Corpuscular Hemoglobin 26.2 L Mean Corpuscular Hemoglobin Concent 32.0 Mean Corpuscular Volume 81.9 L Mean Platelet Volume 7.8 # Monocytes # 0.6 Monocytes % 20.0 H Myelocytes # 0.1 Myelocytes % 2.0 H Neutrophils # 0.8 L Neutrophils % 28.0 L Nucleated Red Blood Cells # Nucleated Red Blood Cells % 6.0 H Platelet Count 11 #*L Platelet Estimate PLT APPEAR DECREASED Red Blood Count 3.30 L Red Cell Distribution Width 19.9 H Uric Acid 3.4 White Blood Count 3.0 #L Test 09/09/16 05:00 09/09/16 08:17 09/09/16 12:41 Alanine Aminotransferase (ALT/SGPT) 23 Albumin 2.7 L Albumin/Globulin Ratio 0.64 Alkaline Phosphatase 77 Anion Gap 15 Aspartate Amino Transf (AST/SGOT) 20 Blood Urea Nitrogen 10 Calcium Level 8.5 Carbon Dioxide Level 25 Chloride Level 106 Creatinine 0.63 Direct Bilirubin 0.00 Globulin 4.20 H Glucose Level 93 Indirect Bilirubin 0.4 Potassium Level 4.3 Sodium Level 142 Total Bilirubin 0.4 Total Protein 6.9 Bedside Glucose 110 211 Medications Medications Current Medications Miscellaneous Information 1 ea NOTE XX ; Start 08/31/16 at 02:00 Glucose (Glutose) 15 gm Q15M PRN PO DECREASED GLUCOSE; Start 08/31/16 at 02:00 Glucose (Glutose) 22.5 gm Q15M PRN PO DECREASED GLUCOSE; Start 08/31/16 at 02:00 Dextrose (D50w Syringe) 25 ml Q15M PRN IV DECREASED GLUCOSE; Start 08/31/16 at 02:00 Dextrose (D50w Syringe) 50 ml Q15M PRN IV DECREASED GLUCOSE; Start 08/31/16 at 02:00 Glucagon (Glucagen) 1 mg Q15M PRN IM DECREASED GLUCOSE; Start 08/31/16 at 02:00 Glucose (Glutose) 15 gm Q15M PRN BUCCAL DECREASED GLUCOSE; Start 08/31/16 at 02: 00 Fluticasone Propionate (Flonase 0.05% Nasal) 2 spray DAILY NASAL Last administered on 09/09/16 10:01; Admin Dose 2 SPRAY; Start 08/31/16 at 09:00 Diagnostic Test (Pha) (Accucheck) 1 ea 02 XX ; Start 09/01/16 at 02:00 Insulin Glargine (Lantus) 18 unit QHS SC Last administered on 09/08/16 21:42; Admin Dose 18 UNIT; Start 09/01/16 at 00:00 Ondansetron HCl (Zofran Inj) 4 mg Q6H PRN IV NAUSEA AND/OR VOMITING; Start 09/01 at 11:30 Acetaminophen (Tylenol Tab) 650 mg Q6H PRN PO PAIN AND OR ELEVATED TEMP Last administered on 09/08/16 21:40; Admin Dose 650 MG; Start 09/01/16 at 11:30 Diphenhydramine HCl (Benadryl) 25 mg Q6H PRN PO ITCHING Last administered on 11:25; Admin Dose 25 MG; Start 09/01/16 at 11:30 Guaifenesin/ Dextromethorphan (Robitussin Dm Liquid Cup) 10 ml Q4H PRN PO COUGH Last administered on 09/08/16 21:40; Admin Dose 10 ML; Start 09/02/16 at 14:00 Allopurinol 300 mg 300 mg DAILY PO Last administered on 09/09/16 10:00; Admin Dose 300 MG; Start 09/04/16 at 16:30 Cytarabine/Sodium Chloride (Letty C/NS) 500 ml @ 20.833 mls/ hr Q24H IVPB Last administered on 09/09/16 02:08; Admin Dose 20.833 MLS/HR; Start 09/05/16 at 18: 00; Stop 09/12/16 at 17:59 Famotidine 20 mg 20 mg 1630 IV Last administered on 09/09/16 01:03; Admin Dose 20 MG; Start 09/05/16 at 16:30; Stop 09/11/16 at 16:31 Ondansetron HCl 16 mg/Dextrose 58 ml @ 212 mls/hr 1630 IV Last administered on 09/09/16 01:03; Admin Dose 212 MLS/HR; Start 09/05/16 at 16:30; Stop at 16:47 Sodium Chloride (NS) 1,000 ml @ 50 mls/hr Q20H IV Last administered on 21:39; Admin Dose 50 MLS/HR; Start 09/05/16 at 12:00 IV Flush (NS 10 ml) 10 ml PRN PRN IV IV PROTOCOL; Start 09/05/16 at 12:30 Bisacodyl (Dulcolax Supp) 10 mg DAILY PRN [place] CONSTIPATION; Start 09/08/16 at 12 :00 Magnesium Hydroxide (Milk Of Mag) 30 ml DAILY PRN PO CONSTIPATION Last administered on 09/09/16 06:25; Admin Dose 30 ML; Start 09/08/16 at 12:00 Polyethylene Glycol (Miralax) 17 gm DAILY PO Last administered on 09/09/16 10: 00; Admin Dose 17 GM; Start 09/08/16 at 12:00 Docusate Sodium (Colace) 100 mg BID PO Last administered on 09/09/16 10:00; Admin Dose 100 MG; Start 09/08/16 at 21:00 Phenol (Cepastat Lozenge) 1 lozenge Q1H PRN MT SORE THROAT Last administered on 09/08/16 21:40; Admin Dose 1 LOZENGE; Start 09/08/16 at 12:00 MISHA FOREMAN M.D. Sep 09, 2016 14:59
[2016-09-09] MEDS: SOD CHLORIDE 0.9% 1,000 ML IV SCH (16:00)
--- NOTE | 2016-09-09 16:44 | PN ---
Date/Time of Note Date/Time of Note DATE: 09/09/16 TIME: 16:39 Assessment/Plan VTE Prophylaxis VTE Prophylaxis Intervention: SCD's Lines/Catheters IV Catheter Type (from Nrsg): PICC Line Central line still needed: Yes (for chemo ) Urinary Cath still in place: No Assessment/Plan Assessment/Plan 71 yo male with: 1. 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 2. Diabetes mellitus, with associated neuropathy manifest by numbness in both feet. Previous clinical suspicion for diabetic gastroparesis. He has moderate hyperglycemia this time, for reasons unclear. No solis source of infection identified, and he has no fever. Continue Lantus and SSI, will resume Metformin as patient tolerating po well Zofran as needed 3. Chronic benign positional vertigo. Continue Meclizine PRN 4. Gastroesophageal reflux disease. Continue Protonix 6. URI with cough and sore throat: CXR stable on admission, symptomatic treatment. Prophylaxis. Sequential compression devices to lower extremity for DVT prevention, PPI for GI ppx DISPOSITION: On induction chemo currently Subjective 24 Hr Interval Summary Free Text/Dictation Patient doing well so far, counts trending down On induction chemo currently Afebrile and remains hemodynamically stable Exam/Review of Systems Vital Signs Vitals Vital Signs Date Time Temp Pulse Resp B/P Pulse Ox O2 Delivery O2 Flow Rate FiO2 09/09/16 07:49 98.3 65 18 151/68 97 09/09/16 06:29 Room Air Intake and Output 09/08/16 09/08/16 09/09/16 15:00 23:00 07:00 Intake Total 1730 ml 1608 ml Output Total 1800 ml 1500 ml Balance -70 ml 108 ml Exam Constitutional: alert, oriented, well developed Respiratory: clear to auscultation, normal air movement Cardiovascular: nl pulses, regular rate and rhythm Gastrointestinal: non-tender, soft Musculoskeletal: nl extremities to inspection Extremities: normal pulses, other (no edema, clubbing or cyanosis ) 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, nl mental status, nl speech, nl strength Results Result Diagram: 09/09/16 0430 09/09/16 0500 Results 24 hrs Laboratory Tests Test 09/08/16 16:53 09/08/16 21:36 09/09/16 02:09 09/09/16 04:30 Bedside Glucose 180 205 139 Band Neutrophils % 4.0 Basophils # 0.1 Basophils % 2.0 Blast Cells % 13.0 H Blastocytes # 0.4 Blood Morphology Comment Differential Comment MANUAL DIFF Eosinophils # 0.2 Eosinophils % 6.0 Hematocrit 27.1 L Hemoglobin 8.7 L Lactate Dehydrogenase 688 H Lymphocytes # 0.8 Lymphocytes % 25.0 Mean Corpuscular Hemoglobin 26.2 L Mean Corpuscular Hemoglobin Concent 32.0 Mean Corpuscular Volume 81.9 L Mean Platelet Volume 7.8 # Monocytes # 0.6 Monocytes % 20.0 H Myelocytes # 0.1 Myelocytes % 2.0 H Neutrophils # 0.8 L Neutrophils % 28.0 L Nucleated Red Blood Cells # Nucleated Red Blood Cells % 6.0 H Platelet Count 11 #*L Platelet Estimate PLT APPEAR DECREASED Red Blood Count 3.30 L Red Cell Distribution Width 19.9 H Uric Acid 3.4 White Blood Count 3.0 #L Test 09/09/16 05:00 09/09/16 08:17 09/09/16 12:41 Alanine Aminotransferase (ALT/SGPT) 23 Albumin 2.7 L Albumin/Globulin Ratio 0.64 Alkaline Phosphatase 77 Anion Gap 15 Aspartate Amino Transf (AST/SGOT) 20 Blood Urea Nitrogen 10 Calcium Level 8.5 Carbon Dioxide Level 25 Chloride Level 106 Creatinine 0.63 Direct Bilirubin 0.00 Globulin 4.20 H Glucose Level 93 Indirect Bilirubin 0.4 Potassium Level 4.3 Sodium Level 142 Total Bilirubin 0.4 Total Protein 6.9 Bedside Glucose 110 211 Medications Medications Current Medications Miscellaneous Information 1 ea NOTE XX ; Start 08/31/16 at 02:00 Glucose (Glutose) 15 gm Q15M PRN PO DECREASED GLUCOSE; Start 08/31/16 at 02:00 Glucose (Glutose) 22.5 gm Q15M PRN PO DECREASED GLUCOSE; Start 08/31/16 at 02:00 Dextrose (D50w Syringe) 25 ml Q15M PRN IV DECREASED GLUCOSE; Start 08/31/16 at 02:00 Dextrose (D50w Syringe) 50 ml Q15M PRN IV DECREASED GLUCOSE; Start 08/31/16 at 02:00 Glucagon (Glucagen) 1 mg Q15M PRN IM DECREASED GLUCOSE; Start 08/31/16 at 02:00 Glucose (Glutose) 15 gm Q15M PRN BUCCAL DECREASED GLUCOSE; Start 08/31/16 at 02: 00 Fluticasone Propionate (Flonase 0.05% Nasal) 2 spray DAILY NASAL Last administered on 09/09/16 10:01; Admin Dose 2 SPRAY; Start 08/31/16 at 09:00 Diagnostic Test (Pha) (Accucheck) 1 ea 02 XX ; Start 09/01/16 at 02:00 Insulin Glargine (Lantus) 18 unit QHS SC Last administered on 09/08/16 21:42; Admin Dose 18 UNIT; Start 09/01/16 at 00:00 Ondansetron HCl (Zofran Inj) 4 mg Q6H PRN IV NAUSEA AND/OR VOMITING; Start 09/01 at 11:30 Acetaminophen (Tylenol Tab) 650 mg Q6H PRN PO PAIN AND OR ELEVATED TEMP Last administered on 09/08/16 21:40; Admin Dose 650 MG; Start 09/01/16 at 11:30 Diphenhydramine HCl (Benadryl) 25 mg Q6H PRN PO ITCHING Last administered on 11:25; Admin Dose 25 MG; Start 09/01/16 at 11:30 Guaifenesin/ Dextromethorphan (Robitussin Dm Liquid Cup) 10 ml Q4H PRN PO COUGH Last administered on 09/08/16 21:40; Admin Dose 10 ML; Start 09/02/16 at 14:00 Allopurinol 300 mg 300 mg DAILY PO Last administered on 09/09/16 10:00; Admin Dose 300 MG; Start 09/04/16 at 16:30 Cytarabine/Sodium Chloride (Letty C/NS) 500 ml @ 20.833 mls/ hr Q24H IVPB Last administered on 09/09/16 02:08; Admin Dose 20.833 MLS/HR; Start 09/05/16 at 18: 00; Stop 09/12/16 at 17:59 Famotidine 20 mg 20 mg 1630 IV Last administered on 09/09/16 01:03; Admin Dose 20 MG; Start 09/05/16 at 16:30; Stop 09/11/16 at 16:31 Ondansetron HCl 16 mg/Dextrose 58 ml @ 212 mls/hr 1630 IV Last administered on 09/09/16 01:03; Admin Dose 212 MLS/HR; Start 09/05/16 at 16:30; Stop at 16:47 Sodium Chloride (NS) 1,000 ml @ 50 mls/hr Q20H IV Last administered on 21:39; Admin Dose 50 MLS/HR; Start 09/05/16 at 12:00 IV Flush (NS 10 ml) 10 ml PRN PRN IV IV PROTOCOL; Start 09/05/16 at 12:30 Bisacodyl (Dulcolax Supp) 10 mg DAILY PRN [place] CONSTIPATION; Start 09/08/16 at 12 :00 Magnesium Hydroxide (Milk Of Mag) 30 ml DAILY PRN PO CONSTIPATION Last administered on 09/09/16 06:25; Admin Dose 30 ML; Start 09/08/16 at 12:00 Polyethylene Glycol (Miralax) 17 gm DAILY PO Last administered on 09/09/16 10: 00; Admin Dose 17 GM; Start 09/08/16 at 12:00 Docusate Sodium (Colace) 100 mg BID PO Last administered on 09/09/16 10:00; Admin Dose 100 MG; Start 09/08/16 at 21:00 Phenol (Cepastat Lozenge) 1 lozenge Q1H PRN MT SORE THROAT Last administered on 09/08/16 21:40; Admin Dose 1 LOZENGE; Start 09/08/16 at 12:00 TAM ROSE Sep 09, 2016 16:44
[2016-09-09] MEDS: GUAIFENESIN/DM 5ML CUP PO PRN (20:28)
[2016-09-09] MEDS: INSULIN GLARGINE [LANtus] 3 ML PEN SC SCH (20:30)
[2016-09-10] VITALS (14 sets, daily range): BP systolic 129–167; BP diastolic 68–94; PULSE 64–78; RESP 16–20
[2016-09-10] MEDS: ACCUCHECK AT 2AM (Patients on SS coverage) XX SCH (02:00)
[2016-09-10] MEDS: ONDANSETRON INJ 16 MG in DEXTROSE 5% 50 ML IV SCH ×2 (03:09→16:30)
[2016-09-10] MEDS: FAMOTIDINE 20 MG INJ IV SCH ×2 (03:09→16:30)
[2016-09-10] MEDS: DIPHENHYDRAMINE 25 MG CAP PO PRN ×3 (03:11→23:22)
[2016-09-10] MEDS: SOD CHLORIDE 0.9% IVPB SCH ×2 (03:55→18:00)
[2016-09-10] MEDS: CYTARABINE IVPB SCH ×2 (03:55→18:00)
[2016-09-10 05:29] LABS: HEMATOCRIT 24.9 % (42.0-52.0); HEMOGLOBIN 7.9 g/dl (14.0-18.0); MEAN CORPUSCULAR HGB CONC 31.7 g/dl (32.0-37.0); MEAN CORPUSCULAR VOLUME 81.9 fl (82.0-101.0); RED BLOOD COUNT 3.04 10^6/ul (4.70-6.10); RED CELL DISTRIBUTION WIDTH 19.8 % (11.5-14.5); UNCORRECTED WBC 1.9 10^3/ul (4.8-10.8); WHITE BLOOD COUNT 1.9 10^3/ul (4.8-10.8)
[2016-09-10 05:57] LABS: ALBUMIN 2.9 g/dl (3.3-4.9); POTASSIUM 4.1 mmol/L (3.5-5.1)
[2016-09-10 05:58] LABS: CONDITION 1; LH ANALYZER COMMENTS 1; MEAN PLATELET VOLUME 8.1 fl (7.4-10.4); SUSPECT 1; URIC ACID 3.2 mg/dl (3.1-7.9)
[2016-09-10 05:59] LABS: BILIRUBIN,INDIRECT 0.5 mg/dl (0-1.1); BILIRUBIN,TOTAL 0.5 mg/dl (0.2-1.3); CREATININE 0.65 mg/dl (0.61-1.24)
[2016-09-10 06:00] LABS: ALBUMIN/GLOBULIN RATIO 0.65; CALCIUM 8.4 mg/dl (8.4-10.2); PLATELET COUNT 6 10^3/UL (140-440); TOTAL PROTEIN 7.3 g/dl (6.1-8.1)
[2016-09-10] MEDS: ACCUCHECK XX SCH ×4 (07:50→21:00)
[2016-09-10] MEDS: DOCUSATE SODIUM 100 MG CAP PO SCH ×2 (08:37→20:24)
[2016-09-10] MEDS: FLUTICASONE 0.05% 16 GM NAS SPRAY NASAL SCH (08:37)
[2016-09-10] MEDS: ALLOPURINOL 300 MG TAB PO SCH (08:38)
[2016-09-10] MEDS: POLYETHYLENE GLYCOL 17 GM PACKET PO SCH (08:38)
[2016-09-10] MEDS: SUCRALFATE 1 GM TAB PO SCH ×4 (08:38→20:28)
[2016-09-10] MEDS: INSULIN ASPART [NOVOLOG] 3 ML PEN SC SCH ×3 (08:57→18:04)
--- NOTE | 2016-09-10 09:03 | CONS ---
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 Pt has been started on 7+3 and is tolerating chemotherapy well. Problems: Additional Assessment/Plan -continue with induction chemotherapy 7+3 . today is day 6. Plt 6 today, will be receiving 1 unit platelets. -s/p 1 units of platelets 09/02/16. 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 s/p BMBx 09/04/16, revealing AML (acute myelomonocytic leukemia, M4) , NPM1, FLT3 and CEBPA pending. Discussed with Dr. Gallegos, her primary oncologist, who is ok with induction chemotherapy. -Discussed with patient's daughter Tawny ([phone]). Patient and family agreeable to induction chemotherapy with 7+3 -Continue tumor lysis labs and allopurinol -PICC line placed -Patient will need to stay inpatient for 3-4 weeks to await count recovery and monitor for infection, transfusions, etc. Patient will need D14 bone marrow. Side effects and course explained to the patient and family. Cytarabine 100 mg/m2 CIV over 24 hours D1-7 Idarubicin 12 mg/m2 IVP D1-3 Problems: Consultation Date/Type/Reason Admit Date/Time Aug 31, 2016 at 00:38 Initial Consult Date 09/02/16 Type of Consultation: Hematology/Oncology Referring Provider: TAM ROSE 24 HR Interval Summary Free Text/Dictation Patient doing well, tolerating chemo well. Complains of some fatigue and muscle soreness, no nausea or vomiting. Exam/Review of Systems Vital Signs Vitals Vital Signs Date Time Temp Pulse Resp B/P Pulse Ox O2 Delivery O2 Flow Rate FiO2 09/10/16 07:41 98.0 68 16 144/69 97 09/10/16 02:00 Room Air Intake and Output 09/09/16 09/09/16 09/10/16 15:00 23:00 07:00 Intake Total 1840 ml 1738 ml Output Total 1650 ml 2200 ml Balance 190 ml -462 ml Exam Constitutional: alert, oriented Head: atraumatic, normocephalic Eyes: nl conjunctiva ENMT: nl external ears & nose Neck: non-tender, supple Respiratory: clear to auscultation, normal air movement Cardiovascular: nl pulses, regular rate and rhythm Gastrointestinal: soft Musculoskeletal: nl extremities to inspection, nl gait and stance Extremities: normal pulses Neurological: [employer] ATTENDANT II-XII intact Results Result Diagram: 09/10/16 0458 09/10/16 0458 Results 24 hrs Laboratory Tests Test 09/09/16 12:41 09/09/16 17:42 09/09/16 20:26 09/10/16 04:58 Bedside Glucose 211 134 163 Alanine Aminotransferase (ALT/SGPT) 20 Albumin 2.9 L Albumin/Globulin Ratio 0.65 Alkaline Phosphatase 76 Anion Gap 12 Aspartate Amino Transf (AST/SGOT) 19 Basophils # Basophils % Blood Morphology Comment Blood Urea Nitrogen 10 Calcium Level 8.4 Carbon Dioxide Level 28 Chloride Level 103 Creatinine 0.65 Direct Bilirubin 0.00 Eosinophils # Eosinophils % Globulin 4.40 H Glucose Level 124 Hematocrit 24.9 L Hemoglobin 7.9 L Indirect Bilirubin 0.5 Lactate Dehydrogenase 647 H Lymphocytes # Lymphocytes % Mean Corpuscular Hemoglobin 26.0 L Mean Corpuscular Hemoglobin Concent 31.7 L Mean Corpuscular Volume 81.9 L Mean Platelet Volume 8.1 Monocytes # Neutrophils # Neutrophils % Nucleated Red Blood Cells # Platelet Count 6 #*L Potassium Level 4.1 Red Blood Count 3.04 L Red Cell Distribution Width 19.8 H Sodium Level 139 Total Bilirubin 0.5 Total Protein 7.3 Uric Acid 3.2 White Blood Count 1.9 #L Test 09/10/16 08:39 Bedside Glucose 110 Medications Medications Current Medications Miscellaneous Information 1 ea NOTE XX ; Start 08/31/16 at 02:00 Glucose (Glutose) 15 gm Q15M PRN PO DECREASED GLUCOSE; Start 08/31/16 at 02:00 Glucose (Glutose) 22.5 gm Q15M PRN PO DECREASED GLUCOSE; Start 08/31/16 at 02:00 Dextrose (D50w Syringe) 25 ml Q15M PRN IV DECREASED GLUCOSE; Start 08/31/16 at 02:00 Dextrose (D50w Syringe) 50 ml Q15M PRN IV DECREASED GLUCOSE; Start 08/31/16 at 02:00 Glucagon (Glucagen) 1 mg Q15M PRN IM DECREASED GLUCOSE; Start 08/31/16 at 02:00 Glucose (Glutose) 15 gm Q15M PRN BUCCAL DECREASED GLUCOSE; Start 08/31/16 at 02: 00 Fluticasone Propionate (Flonase 0.05% Nasal) 2 spray DAILY NASAL Last administered on 09/10/16 08:37; Admin Dose 2 SPRAY; Start 08/31/16 at 09:00 Diagnostic Test (Pha) (Accucheck) 1 ea 02 XX ; Start 09/01/16 at 02:00 Insulin Glargine (Lantus) 18 unit QHS SC Last administered on 09/09/16 20:30; Admin Dose 18 UNIT; Start 09/01/16 at 00:00 Ondansetron HCl (Zofran Inj) 4 mg Q6H PRN IV NAUSEA AND/OR VOMITING; Start 09/01 at 11:30 Acetaminophen (Tylenol Tab) 650 mg Q6H PRN PO PAIN AND OR ELEVATED TEMP Last administered on 09/08/16 21:40; Admin Dose 650 MG; Start 09/01/16 at 11:30 Diphenhydramine HCl (Benadryl) 25 mg Q6H PRN PO ITCHING Last administered on 03:11; Admin Dose 25 MG; Start 09/01/16 at 11:30 Guaifenesin/ Dextromethorphan (Robitussin Dm Liquid Cup) 10 ml Q4H PRN PO COUGH Last administered on 09/09/16 20:28; Admin Dose 10 ML; Start 09/02/16 at 14:00 Allopurinol 300 mg 300 mg DAILY PO Last administered on 09/10/16 08:38; Admin Dose 300 MG; Start 09/04/16 at 16:30 Cytarabine/Sodium Chloride (Letty C/NS) 500 ml @ 20.833 mls/ hr Q24H IVPB Last administered on 09/10/16 03:55; Admin Dose 20.833 MLS/HR; Start 09/05/16 at 18: 00; Stop 09/12/16 at 17:59 Famotidine 20 mg 20 mg 1630 IV Last administered on 09/10/16 03:09; Admin Dose 20 MG; Start 09/05/16 at 16:30; Stop 09/11/16 at 16:31 Ondansetron HCl 16 mg/Dextrose 58 ml @ 212 mls/hr 1630 IV Last administered on 09/10/16 03:09; Admin Dose 212 MLS/HR; Start 09/05/16 at 16:30; Stop at 16:47 Sodium Chloride (NS) 1,000 ml @ 50 mls/hr Q20H IV Last administered on 21:39; Admin Dose 50 MLS/HR; Start 09/05/16 at 12:00 IV Flush (NS 10 ml) 10 ml PRN PRN IV IV PROTOCOL; Start 09/05/16 at 12:30 Bisacodyl (Dulcolax Supp) 10 mg DAILY PRN [place] CONSTIPATION; Start 09/08/16 at 12 :00 Magnesium Hydroxide (Milk Of Mag) 30 ml DAILY PRN PO CONSTIPATION Last administered on 09/09/16 06:25; Admin Dose 30 ML; Start 09/08/16 at 12:00 Polyethylene Glycol (Miralax) 17 gm DAILY PO Last administered on 09/10/16 08: 38; Admin Dose 17 GM; Start 09/08/16 at 12:00 Docusate Sodium (Colace) 100 mg BID PO Last administered on 09/10/16 08:37; Admin Dose 100 MG; Start 09/08/16 at 21:00 Phenol (Cepastat Lozenge) 1 lozenge Q1H PRN MT SORE THROAT Last administered on 09/08/16 21:40; Admin Dose 1 LOZENGE; Start 09/08/16 at 12:00 ROMA BUNDY MD Sep 10, 2016 09:03
[2016-09-10 10:44] LABS: BASOPHIL # 0.1 10^3/ul (0.0-0.1); EOSINOPHILS # 0.1 10^3/ul (0.0-0.5); LYMPHOCYTES # 0.9 10^3/ul (0.8-2.9); NEUTROPHIL # 0.8 10^3/ul (1.6-7.5)
[2016-09-10 10:45] LABS: ANISOCYTOSIS 2+
[2016-09-10 10:46] LABS: HYPOCHROMASIA 2+; MICROCYTOSIS 1+
--- NOTE | 2016-09-10 11:32 | PN ---
Date/Time of Note Date/Time of Note DATE: 09/10/16 TIME: 11:27 Assessment/Plan VTE Prophylaxis VTE Prophylaxis Intervention: other Lines/Catheters IV Catheter Type (from Nrs): PICC Line Central line still needed: Yes (or IV access and chemo ) Urinary Cath still in place: No Assessment/Plan Assessment/Plan 71 yo male with: 1. Acute Myeloid Leukemia, new diagnosis, transformation from CMML, Hb has been stable now s/p 4 units pRBC and 2 units platelets on admission Platelets down to 6 K today with some minor nose bleed overnight Blasts count trending down On Chemo, follow up Hematology recs and counts 1 unit of platelets today. 2. Diabetes mellitus, with associated neuropathy manifest by numbness in both feet. Previous clinical suspicion for diabetic gastroparesis. He has moderate hyperglycemia this time, for reasons unclear. No solis source of infection identified, and he has no fever. Continue Lantus and SSI, will resume Metformin as patient tolerating po well Zofran as needed 3. Chronic benign positional vertigo. Continue Meclizine PRN 4. Gastroesophageal reflux disease. Continue Protonix 6. URI with cough and sore throat: CXR stable on admission, symptomatic treatment. Prophylaxis. Sequential compression devices to lower extremity for DVT prevention, PPI for GI ppx DISPOSITION: On induction chemo currently and to receive 1 unit of platelets today Subjective 24 Hr Interval Summary Free Text/Dictation Patient remains stable, afebrile with count dropping as expected Some minor nose bleed overnight after he blew his nose Platelets down to 6k and will be receiving 1 unit plts today Exam/Review of Systems Vital Signs Vitals Vital Signs Date Time Temp Pulse Resp B/P Pulse Ox O2 Delivery O2 Flow Rate FiO2 09/10/16 07:41 98.0 68 16 144/69 97 09/10/16 02:00 Room Air Intake and Output 09/09/16 09/09/16 09/10/16 15:00 23:00 07:00 Intake Total 1840 ml 1738 ml Output Total 1650 ml 2200 ml Balance 190 ml -462 ml Exam Constitutional: alert, oriented, well developed ENMT: other (some sore throat ) Respiratory: clear to auscultation, normal air movement Cardiovascular: nl pulses, regular rate and rhythm Gastrointestinal: non-tender, soft Musculoskeletal: nl extremities to inspection Extremities: normal pulses, other (no edema, clubbing or cyanosis ) Results Result Diagram: 09/10/16 0458 09/10/16 0458 Results 24 hrs Laboratory Tests Test 09/09/16 12:41 09/09/16 17:42 09/09/16 20:26 09/10/16 04:58 Bedside Glucose 211 134 163 Alanine Aminotransferase (ALT/SGPT) 20 Albumin 2.9 L Albumin/Globulin Ratio 0.65 Alkaline Phosphatase 76 Anion Gap 12 Anisocytosis 2+ Aspartate Amino Transf (AST/SGOT) 19 Band Neutrophils % 3.0 Basophils # 0.1 Basophils % 3.0 H Blast Cells % 3.0 H Blastocytes # 0.1 Blood Morphology Comment Blood Urea Nitrogen 10 Calcium Level 8.4 Carbon Dioxide Level 28 Chloride Level 103 Creatinine 0.65 Direct Bilirubin 0.00 Eosinophils # 0.1 Eosinophils % 3.0 Globulin 4.40 H Glucose Level 124 Hematocrit 24.9 L Hemoglobin 7.9 L Hypochromasia 2+ Indirect Bilirubin 0.5 Lactate Dehydrogenase 647 H Lymphocytes # 0.9 Lymphocytes % 47.0 Mean Corpuscular Hemoglobin 26.0 L Mean Corpuscular Hemoglobin Concent 31.7 L Mean Corpuscular Volume 81.9 L Mean Platelet Volume 8.1 Microcytosis 1+ Monocytes # Neutrophils # 0.8 L Neutrophils % 41.0 Nucleated Red Blood Cells # Platelet Count 6 #*L Potassium Level 4.1 Red Blood Count 3.04 L Red Cell Distribution Width 19.8 H Sodium Level 139 Total Bilirubin 0.5 Total Protein 7.3 Uric Acid 3.2 White Blood Count 1.9 #L Test 09/10/16 08:39 Bedside Glucose 110 Medications Medications Current Medications Miscellaneous Information 1 ea NOTE XX ; Start 08/31/16 at 02:00 Glucose (Glutose) 15 gm Q15M PRN PO DECREASED GLUCOSE; Start 08/31/16 at 02:00 Glucose (Glutose) 22.5 gm Q15M PRN PO DECREASED GLUCOSE; Start 08/31/16 at 02:00 Dextrose (D50w Syringe) 25 ml Q15M PRN IV DECREASED GLUCOSE; Start 08/31/16 at 02:00 Dextrose (D50w Syringe) 50 ml Q15M PRN IV DECREASED GLUCOSE; Start 08/31/16 at 02:00 Glucagon (Glucagen) 1 mg Q15M PRN IM DECREASED GLUCOSE; Start 08/31/16 at 02:00 Glucose (Glutose) 15 gm Q15M PRN BUCCAL DECREASED GLUCOSE; Start 08/31/16 at 02: 00 Fluticasone Propionate (Flonase 0.05% Nasal) 2 spray DAILY NASAL Last administered on 09/10/16 08:37; Admin Dose 2 SPRAY; Start 08/31/16 at 09:00 Diagnostic Test (Pha) (Accucheck) 1 ea 02 XX ; Start 09/01/16 at 02:00 Insulin Glargine (Lantus) 18 unit QHS SC Last administered on 09/09/16 20:30; Admin Dose 18 UNIT; Start 09/01/16 at 00:00 Ondansetron HCl (Zofran Inj) 4 mg Q6H PRN IV NAUSEA AND/OR VOMITING; Start 09/01 at 11:30 Acetaminophen (Tylenol Tab) 650 mg Q6H PRN PO PAIN AND OR ELEVATED TEMP Last administered on 09/08/16 21:40; Admin Dose 650 MG; Start 09/01/16 at 11:30 Diphenhydramine HCl (Benadryl) 25 mg Q6H PRN PO ITCHING Last administered on 03:11; Admin Dose 25 MG; Start 09/01/16 at 11:30 Guaifenesin/ Dextromethorphan (Robitussin Dm Liquid Cup) 10 ml Q4H PRN PO COUGH Last administered on 09/09/16 20:28; Admin Dose 10 ML; Start 09/02/16 at 14:00 Allopurinol 300 mg 300 mg DAILY PO Last administered on 09/10/16 08:38; Admin Dose 300 MG; Start 09/04/16 at 16:30 Cytarabine/Sodium Chloride (Letty C/NS) 500 ml @ 20.833 mls/ hr Q24H IVPB Last administered on 09/10/16 03:55; Admin Dose 20.833 MLS/HR; Start 09/05/16 at 18: 00; Stop 09/12/16 at 17:59 Famotidine 20 mg 20 mg 1630 IV Last administered on 09/10/16 03:09; Admin Dose 20 MG; Start 09/05/16 at 16:30; Stop 09/11/16 at 16:31 Ondansetron HCl 16 mg/Dextrose 58 ml @ 212 mls/hr 1630 IV Last administered on 09/10/16 03:09; Admin Dose 212 MLS/HR; Start 09/05/16 at 16:30; Stop at 16:47 Sodium Chloride (NS) 1,000 ml @ 50 mls/hr Q20H IV Last administered on 21:39; Admin Dose 50 MLS/HR; Start 09/05/16 at 12:00 IV Flush (NS 10 ml) 10 ml PRN PRN IV IV PROTOCOL; Start 09/05/16 at 12:30 Bisacodyl (Dulcolax Supp) 10 mg DAILY PRN [place] CONSTIPATION; Start 09/08/16 at 12 :00 Magnesium Hydroxide (Milk Of Mag) 30 ml DAILY PRN PO CONSTIPATION Last administered on 09/09/16 06:25; Admin Dose 30 ML; Start 09/08/16 at 12:00 Polyethylene Glycol (Miralax) 17 gm DAILY PO Last administered on 09/10/16 08: 38; Admin Dose 17 GM; Start 09/08/16 at 12:00 Docusate Sodium (Colace) 100 mg BID PO Last administered on 09/10/16 08:37; Admin Dose 100 MG; Start 09/08/16 at 21:00 Phenol (Cepastat Lozenge) 1 lozenge Q1H PRN MT SORE THROAT Last administered on 09/08/16 21:40; Admin Dose 1 LOZENGE; Start 09/08/16 at 12:00 TAM ROSE Sep 10, 2016 11:32
[2016-09-10] MEDS: CEPASTAT LOZENGE MT PRN ×2 (11:43→15:39)
[2016-09-10] MEDS: SOD CHLORIDE 0.9% 1,000 ML IV SCH (11:48)
--- NOTE | 2016-09-10 16:54 | ERA ---
DATE OF SERVICE: HISTORY OF PRESENT ILLNESS: This 71-year-old male presents to the emergency room for feeling dizzy as in lightheaded, generalized weakness, feeling fever and chills as well as nausea and vomiting for 2 days. He has also had a slight cough. He does have upper abdominal pain status post vomiting. REVIEW OF SYSTEMS: A 10-point review of systems is negative except as in the HPI. PAST MEDICAL HISTORY: Diabetes, high blood pressure and leukemia. PAST SURGICAL HISTORY: Eye surgery. FAMILY HISTORY: Noncontributory. SOCIAL HISTORY: Denies tobacco, alcohol and other drugs. PHYSICAL EXAMINATION VITAL SIGNS: Temperature 101.1, pulse 106, blood pressure 153/69, respirations 18, oxygen saturatio n 98% on room air. GENERAL: Mild distress, appears uncomfortable. HEENT: Normocephalic, atraumatic. Tympanic membranes within normal limits. Mucous membranes of m outh slightly dry. NECK: Supple, no JVD. No meningismus. HEART: Regular tachycardia. No murmurs. LUNGS: Decreased basilar breath sounds, coughs on exam. ABDOMEN: Soft. Very mild epigastric tenderness without guarding or rebound. Normal bowel sounds, nondistended. EXTREMITIES: No cyanosis, clubbing or edema. SKIN: No rashes or other lesions. NEUROLOGIC: Alert and oriented x3 with no focal deficits. Cranial nerves II through XII intact. LABORATORY ANALYSIS: CBC: Significant for an elevated white count of 12.2 as well as a hemoglobin that is very low at 7. This represents a microcytic anemia. Platelet count is also very low at 22. Chemistries: BMP significant for a low sodium of 129, a low chloride of 92, BUN of 22 indicating possible dehydration. Sugar is elevated at 392. Lactic acid is 2.2. LFTs are within normal limits . Troponin is negative. His urinalysis is negative for acute infection. Does have a lot of glucos e. Coagulation studies show an INR of 1.27. DIAGNOSTIC WORKUP: EKG interpretation by myself: Normal sinus rhythm, normal axis, rate of 99, no ST or T-wave changes concerning for acute ischemia, normal intervals. Normal EKG except for sinus t achycardia. IMAGING: Chest x-ray interpretation: Bilateral infiltrates but when compared to prior exam, are si gnificantly pronounced at this time, no pneumothorax, no obvious pulmonary edema, cardiomegaly, no p neumothorax, no fractures. EMERGENCY DEPARTMENT COURSE AND MEDICAL DECISION MAKING: Appears to be a very ill individual with p neumonia with sepsis with concomitant symptomatic anemia, likely secondary to a malignant process of the blood, also with severe thrombocytopenia without any evidence of active bleeding. Possibly may have a GI bleed contributing to the anemia. He was treated immediately with cefepime and vancomyci n for empiric therapy for sepsis. He was given Zofran which resolved his nausea. He was given 30 m L/kg IV fluid bolus. He was also given Lasix prior to the blood product administration to prevent f luid overload. He is being transfused 2 units of PRBCs in the emergency room. I spoke with Dr. Evelyn coronel who will be admitting the patient. He will be admitting him to a monitored bed for very close m onitoring. PLC ENGINEER INTERPRETATION: Sinus tachycardia without arrhythmias. CRITICAL CARE TIME: 44 minutes: This includes management of multiple critical processes including pneumonia, sepsis as well as acute symptomatic anemia with severe thrombocytopenia, immediate antibi otic administration, careful fluid administration in the setting of blood product administration nec essity, multiple visits to the patient's bedside to assess his hemodynamic status, discussion with t he patient and admitting doctor, chart review. This does not include any billable procedures. DIAGNOSES: 1. Pneumonia with sepsis. 2. Acute symptomatic anemia. 3. Severe thrombocytopenia. 4. Hyponatremia. 5. Hypochloremia. 6. Hyperglycemia. DISPOSITION: Admitted in fair condition. Dictated By: JASWINDER SIMPSON/MALIK Conf#: [id number] DID#: [id number]
[2016-09-10] MEDS: INSULIN GLARGINE [LANtus] 3 ML PEN SC SCH (20:26)
[2016-09-11] MEDS: DIPHENHYDRAMINE 25 MG CAP PO PRN ×2 (01:01→22:32)
[2016-09-11] MEDS: ACCUCHECK AT 2AM (Patients on SS coverage) XX SCH (02:00)
[2016-09-11 05:15] LABS: HEMATOCRIT 26.4 % (42.0-52.0); HEMOGLOBIN 8.5 g/dl (14.0-18.0); MEAN CORPUSCULAR HEMOGLOBIN 26.3 pg (29.0-33.0); MEAN CORPUSCULAR HGB CONC 32.2 g/dl (32.0-37.0); MEAN CORPUSCULAR VOLUME 81.7 fl (82.0-101.0); RED BLOOD COUNT 3.23 10^6/ul (4.70-6.10); RED CELL DISTRIBUTION WIDTH 19.8 % (11.5-14.5); UNCORRECTED WBC 1.5 10^3/ul (4.8-10.8); WHITE BLOOD COUNT 1.5 10^3/ul (4.8-10.8)
[2016-09-11] MEDS: FAMOTIDINE 20 MG INJ IV SCH ×2 (05:18→16:33)
[2016-09-11] MEDS: ONDANSETRON INJ 16 MG in DEXTROSE 5% 50 ML IV SCH ×2 (05:18→16:33)
[2016-09-11 05:26] LABS: CONDITION 1; LH ANALYZER COMMENTS 1; MEAN PLATELET VOLUME 10.3 fl (7.4-10.4); SUSPECT 1
[2016-09-11 05:30] LABS: ALBUMIN 3.1 g/dl (3.3-4.9)
[2016-09-11 05:31] LABS: PLATELET COUNT 28 10^3/UL (140-440); POTASSIUM 4.2 mmol/L (3.5-5.1)
[2016-09-11 05:32] LABS: URIC ACID 3.3 mg/dl (3.1-7.9)
[2016-09-11 05:33] LABS: ALBUMIN/GLOBULIN RATIO 0.7; BILIRUBIN,INDIRECT 0.6 mg/dl (0-1.1); BILIRUBIN,TOTAL 0.6 mg/dl (0.2-1.3); CREATININE 0.66 mg/dl (0.61-1.24); TOTAL PROTEIN 7.5 g/dl (6.1-8.1)
[2016-09-11 05:34] LABS: CALCIUM 8.7 mg/dl (8.4-10.2)
[2016-09-11 05:36] VITALS: BP 154/69; PULSE 66; RESP 17
[2016-09-11] MEDS: CYTARABINE IVPB SCH (05:43)
[2016-09-11] MEDS: SOD CHLORIDE 0.9% IVPB SCH (05:43)
[2016-09-11] MEDS: SOD CHLORIDE 0.9% 1,000 ML IV SCH (07:00)
[2016-09-11] MEDS: ACCUCHECK XX SCH ×4 (07:50→20:59)
[2016-09-11] MEDS: POLYETHYLENE GLYCOL 17 GM PACKET PO SCH (08:53)
[2016-09-11] MEDS: ALLOPURINOL 300 MG TAB PO SCH (08:54)
[2016-09-11] MEDS: DOCUSATE SODIUM 100 MG CAP PO SCH ×2 (08:54→20:47)
[2016-09-11] MEDS: FLUTICASONE 0.05% 16 GM NAS SPRAY NASAL SCH (08:54)
[2016-09-11] MEDS: INSULIN ASPART [NOVOLOG] 3 ML PEN SC SCH ×3 (08:58→17:35)
[2016-09-11] MEDS: SUCRALFATE 1 GM TAB PO SCH ×4 (08:59→20:47)
--- NOTE | 2016-09-11 11:08 | CONS ---
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 Pt has been started on 7+3 and is tolerating chemotherapy well. Problems: Additional Assessment/Plan -continue with induction chemotherapy 7+3 . today is day 7 -s/p 1 units of platelets 09/02/16 and 09/10/16. 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 s/p BMBx 09/04/16, revealing AML (acute myelomonocytic leukemia, M4) , NPM1, FLT3 and CEBPA pending. Discussed with Dr. Gallegos, her primary oncologist, who is ok with induction chemotherapy. -Discussed with patient's daughter Tawny ([phone]). Patient and family agreeable to induction chemotherapy with 7+3 -Continue tumor lysis labs and allopurinol -PICC line placed -Patient will need to stay inpatient for 3-4 weeks to await count recovery and monitor for infection, transfusions, etc. Patient will need D14 bone marrow. Side effects and course explained to the patient and family. Cytarabine 100 mg/m2 CIV over 24 hours D1-7 Idarubicin 12 mg/m2 IVP D1-3 Problems: Consultation Date/Type/Reason Admit Date/Time Aug 31, 2016 at 00:38 Initial Consult Date 09/02/16 Type of Consultation: Hematology/Oncology Referring Provider: TAM ROSE 24 HR Interval Summary Free Text/Dictation Patient doing well, no complaints. Exam/Review of Systems Vital Signs Vitals Vital Signs Date Time Temp Pulse Resp B/P Pulse Ox O2 Delivery O2 Flow Rate FiO2 09/11/16 05:36 98.5 66 17 154/69 96 Room Air Intake and Output 09/10/16 09/10/16 09/11/16 15:00 23:00 07:00 Intake Total 2106 ml 1408 ml Output Total 2400 ml 1950 ml Balance -294 ml -542 ml Exam Constitutional: alert, oriented Head: atraumatic, normocephalic Eyes: nl conjunctiva ENMT: nl external ears & nose Neck: non-tender, supple Respiratory: clear to auscultation, normal air movement Cardiovascular: nl pulses, regular rate and rhythm Gastrointestinal: soft Musculoskeletal: nl extremities to inspection, nl gait and stance Extremities: normal pulses Neurological: DIRECTOR OF SPORTS 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 II-XII intact Results Result Diagram: 09/11/16 0420 09/11/16 0420 Results 24 hrs Laboratory Tests Test 09/10/16 12:09 09/10/16 18:01 09/10/16 20:12 09/11/16 04:20 Bedside Glucose 190 119 199 Alanine Aminotransferase (ALT/SGPT) 22 Albumin 3.1 L Albumin/Globulin Ratio 0.70 Alkaline Phosphatase 82 Anion Gap 13 Aspartate Amino Transf (AST/SGOT) 21 Basophils # Basophils % Blood Morphology Comment Blood Urea Nitrogen 11 Calcium Level 8.7 Carbon Dioxide Level 29 Chloride Level 101 Creatinine 0.66 Direct Bilirubin 0.00 Eosinophils # Eosinophils % Globulin 4.40 H Glucose Level 130 Hematocrit 26.4 L Hemoglobin 8.5 L Indirect Bilirubin 0.6 Lactate Dehydrogenase 706 H Lymphocytes # Lymphocytes % Mean Corpuscular Hemoglobin 26.3 L Mean Corpuscular Hemoglobin Concent 32.2 Mean Corpuscular Volume 81.7 L Mean Platelet Volume 10.3 # Monocytes # Monocytes % Neutrophils # Neutrophils % Nucleated Red Blood Cells # Platelet Count 28 #*L Potassium Level 4.2 Red Blood Count 3.23 L Red Cell Distribution Width 19.8 H Sodium Level 139 Total Bilirubin 0.6 Total Protein 7.5 Uric Acid 3.3 White Blood Count 1.5 #L Test 09/11/16 08:11 Bedside Glucose 142 Medications Medications Current Medications Miscellaneous Information 1 ea NOTE XX ; Start 08/31/16 at 02:00 Glucose (Glutose) 15 gm Q15M PRN PO DECREASED GLUCOSE; Start 08/31/16 at 02:00 Glucose (Glutose) 22.5 gm Q15M PRN PO DECREASED GLUCOSE; Start 08/31/16 at 02:00 Dextrose (D50w Syringe) 25 ml Q15M PRN IV DECREASED GLUCOSE; Start 08/31/16 at 02:00 Dextrose (D50w Syringe) 50 ml Q15M PRN IV DECREASED GLUCOSE; Start 08/31/16 at 02:00 Glucagon (Glucagen) 1 mg Q15M PRN IM DECREASED GLUCOSE; Start 08/31/16 at 02:00 Glucose (Glutose) 15 gm Q15M PRN BUCCAL DECREASED GLUCOSE; Start 08/31/16 at 02: 00 Fluticasone Propionate (Flonase 0.05% Nasal) 2 spray DAILY NASAL Last administered on 09/11/16 08:54; Admin Dose 2 SPRAY; Start 08/31/16 at 09:00 Diagnostic Test (Pha) (Accucheck) 1 ea 02 XX ; Start 09/01/16 at 02:00 Insulin Glargine (Lantus) 18 unit QHS SC Last administered on 09/10/16 20:26; Admin Dose 18 UNIT; Start 09/01/16 at 00:00 Ondansetron HCl (Zofran Inj) 4 mg Q6H PRN IV NAUSEA AND/OR VOMITING; Start 09/01 at 11:30 Acetaminophen (Tylenol Tab) 650 mg Q6H PRN PO PAIN AND OR ELEVATED TEMP Last administered on 09/08/16 21:40; Admin Dose 650 MG; Start 09/01/16 at 11:30 Diphenhydramine HCl (Benadryl) 25 mg Q6H PRN PO ITCHING Last administered on 01:01; Admin Dose 25 MG; Start 09/01/16 at 11:30 Guaifenesin/ Dextromethorphan (Robitussin Dm Liquid Cup) 10 ml Q4H PRN PO COUGH Last administered on 09/09/16 20:28; Admin Dose 10 ML; Start 09/02/16 at 14:00 Allopurinol 300 mg 300 mg DAILY PO Last administered on 09/11/16 08:54; Admin Dose 300 MG; Start 09/04/16 at 16:30 Cytarabine/Sodium Chloride (Letty C/NS) 500 ml @ 20.833 mls/ hr Q24H IVPB Last administered on 09/11/16 05:43; Admin Dose 20.833 MLS/HR; Start 09/05/16 at 18: 00; Stop 09/12/16 at 17:59 Famotidine 20 mg 20 mg 1630 IV Last administered on 09/11/16 05:18; Admin Dose 20 MG; Start 09/05/16 at 16:30; Stop 09/11/16 at 16:31 Ondansetron HCl 16 mg/Dextrose 58 ml @ 212 mls/hr 1630 IV Last administered on 09/11/16 05:18; Admin Dose 212 MLS/HR; Start 09/05/16 at 16:30; Stop at 16:47 Sodium Chloride (NS) 1,000 ml @ 50 mls/hr Q20H IV Last administered on 07:00; Admin Dose 50 MLS/HR; Start 09/05/16 at 12:00 IV Flush (NS 10 ml) 10 ml PRN PRN IV IV PROTOCOL; Start 09/05/16 at 12:30 Bisacodyl (Dulcolax Supp) 10 mg DAILY PRN [place] CONSTIPATION; Start 09/08/16 at 12 :00 Magnesium Hydroxide (Milk Of Mag) 30 ml DAILY PRN PO CONSTIPATION Last administered on 09/09/16 06:25; Admin Dose 30 ML; Start 09/08/16 at 12:00 Polyethylene Glycol (Miralax) 17 gm DAILY PO Last administered on 09/11/16 08: 53; Admin Dose 17 GM; Start 09/08/16 at 12:00 Docusate Sodium (Colace) 100 mg BID PO Last administered on 09/11/16 08:54; Admin Dose 100 MG; Start 09/08/16 at 21:00 Phenol (Cepastat Lozenge) 1 lozenge Q1H PRN MT SORE THROAT Last administered on 09/10/16 15:39; Admin Dose 1 LOZENGE; Start 09/08/16 at 12:00 ROMA BUNDY MD Sep 11, 2016 11:08
--- NOTE | 2016-09-11 11:52 | PN ---
Date/Time of Note Date/Time of Note DATE: 09/11/16 TIME: 11:41 Assessment/Plan VTE Prophylaxis VTE Prophylaxis Intervention: SCD's Lines/Catheters IV C[facility]ter Type (from [email or web address] CHEMO TUBING Urinary Cath still in place: No Assessment/Plan Assessment/Plan 71 yo male with: 1. 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 2. Diabetes mellitus, with associated neuropathy manifest by numbness in both feet. Previous clinical suspicion for diabetic gastroparesis. He has moderate hyperglycemia this time, for reasons unclear. No solis source of infection identified, and he has no fever. Continue Lantus and SSI, will resume Metformin as patient tolerating po well Zofran as needed 3. Chronic benign positional vertigo. Continue Meclizine PRN 4. Gastroesophageal reflux disease. Continue Protonix 6. URI with cough and sore throat: CXR stable on admission, symptomatic treatment. 7. Hypertension: starting Norvasc. Prophylaxis. Sequential compression devices to lower extremity for DVT prevention, PPI for GI ppx DISPOSITION: On induction chemo currently and Neutropenic precautions on. Subjective 24 Hr Interval Summary Free Text/Dictation Patient doing well while on Chemo Counts trending down, s/p 1 unit pRBC and on Neutropenic precautions now Afebrile and hemodynamically stable Exam/Review of Systems Vital Signs Vitals Vital Signs Date Time Temp Pulse Resp B/P Pulse Ox O2 Delivery O2 Flow Rate FiO2 09/11/16 05:36 98.5 66 17 154/69 96 Room Air Intake and Output 09/10/16 09/10/16 09/11/16 15:00 23:00 07:00 Intake Total 2106 ml 1408 ml Output Total 2400 ml 1950 ml Balance -294 ml -542 ml Exam Constitutional: alert, oriented, well developed Respiratory: clear to auscultation, normal air movement Cardiovascular: regular rate and rhythm Gastrointestinal: non-tender, soft Musculoskeletal: nl extremities to inspection Extremities: normal pulses, other (no edema, clubbing or cyanosis ) Neurological: CENTRAL OFFICE EQUIPMENT ENGINEER II-XII intact, nl mental status, nl speech, nl strength Results Result Diagram: 09/11/16 0420 09/11/16 0420 Results 24 hrs Laboratory Tests Test 09/10/16 12:09 09/10/16 18:01 09/10/16 20:12 09/11/16 04:20 Bedside Glucose 190 119 199 Alanine Aminotransferase (ALT/SGPT) 22 Albumin 3.1 L Albumin/Globulin Ratio 0.70 Alkaline Phosphatase 82 Anion Gap 13 Aspartate Amino Transf (AST/SGOT) 21 Basophils # Basophils % Blood Morphology Comment Blood Urea Nitrogen 11 Calcium Level 8.7 Carbon Dioxide Level 29 Chloride Level 101 Creatinine 0.66 Direct Bilirubin 0.00 Eosinophils # Eosinophils % Globulin 4.40 H Glucose Level 130 Hematocrit 26.4 L Hemoglobin 8.5 L Indirect Bilirubin 0.6 Lactate Dehydrogenase 706 H Lymphocytes # Lymphocytes % Mean Corpuscular Hemoglobin 26.3 L Mean Corpuscular Hemoglobin Concent 32.2 Mean Corpuscular Volume 81.7 L Mean Platelet Volume 10.3 # Monocytes # Monocytes % Neutrophils # Neutrophils % Nucleated Red Blood Cells # Platelet Count 28 #*L Potassium Level 4.2 Red Blood Count 3.23 L Red Cell Distribution Width 19.8 H Sodium Level 139 Total Bilirubin 0.6 Total Protein 7.5 Uric Acid 3.3 White Blood Count 1.5 #L Test 09/11/16 08:11 09/11/16 11:24 Bedside Glucose 142 127 Medications Medications Current Medications Miscellaneous Information 1 ea NOTE XX ; Start 08/31/16 at 02:00 Glucose (Glutose) 15 gm Q15M PRN PO DECREASED GLUCOSE; Start 08/31/16 at 02:00 Glucose (Glutose) 22.5 gm Q15M PRN PO DECREASED GLUCOSE; Start 08/31/16 at 02:00 Dextrose (D50w Syringe) 25 ml Q15M PRN IV DECREASED GLUCOSE; Start 08/31/16 at 02:00 Dextrose (D50w Syringe) 50 ml Q15M PRN IV DECREASED GLUCOSE; Start 08/31/16 at 02:00 Glucagon (Glucagen) 1 mg Q15M PRN IM DECREASED GLUCOSE; Start 08/31/16 at 02:00 Glucose (Glutose) 15 gm Q15M PRN BUCCAL DECREASED GLUCOSE; Start 08/31/16 at 02: 00 Fluticasone Propionate (Flonase 0.05% Nasal) 2 spray DAILY NASAL Last administered on 09/11/16 08:54; Admin Dose 2 SPRAY; Start 08/31/16 at 09:00 Diagnostic Test (Pha) (Accucheck) 1 ea 02 XX ; Start 09/01/16 at 02:00 Insulin Glargine (Lantus) 18 unit QHS SC Last administered on 09/10/16 20:26; Admin Dose 18 UNIT; Start 09/01/16 at 00:00 Ondansetron HCl (Zofran Inj) 4 mg Q6H PRN IV NAUSEA AND/OR VOMITING; Start 09/01 at 11:30 Acetaminophen (Tylenol Tab) 650 mg Q6H PRN PO PAIN AND OR ELEVATED TEMP Last administered on 09/08/16 21:40; Admin Dose 650 MG; Start 09/01/16 at 11:30 Diphenhydramine HCl (Benadryl) 25 mg Q6H PRN PO ITCHING Last administered on 01:01; Admin Dose 25 MG; Start 09/01/16 at 11:30 Guaifenesin/ Dextromethorphan (Robitussin Dm Liquid Cup) 10 ml Q4H PRN PO COUGH Last administered on 09/09/16 20:28; Admin Dose 10 ML; Start 09/02/16 at 14:00 Allopurinol 300 mg 300 mg DAILY PO Last administered on 09/11/16 08:54; Admin Dose 300 MG; Start 09/04/16 at 16:30 Cytarabine/Sodium Chloride (Letty C/NS) 500 ml @ 20.833 mls/ hr Q24H IVPB Last administered on 09/11/16 05:43; Admin Dose 20.833 MLS/HR; Start 09/05/16 at 18: 00; Stop 09/12/16 at 17:59 Famotidine 20 mg 20 mg 1630 IV Last administered on 09/11/16 05:18; Admin Dose 20 MG; Start 09/05/16 at 16:30; Stop 09/11/16 at 16:31 Ondansetron HCl 16 mg/Dextrose 58 ml @ 212 mls/hr 1630 IV Last administered on 09/11/16 05:18; Admin Dose 212 MLS/HR; Start 09/05/16 at 16:30; Stop at 16:47 Sodium Chloride (NS) 1,000 ml @ 50 mls/hr Q20H IV Last administered on 07:00; Admin Dose 50 MLS/HR; Start 09/05/16 at 12:00 IV Flush (NS 10 ml) 10 ml PRN PRN IV IV PROTOCOL; Start 09/05/16 at 12:30 Bisacodyl (Dulcolax Supp) 10 mg DAILY PRN [place] CONSTIPATION; Start 09/08/16 at 12 :00 Magnesium Hydroxide (Milk Of Mag) 30 ml DAILY PRN [place] CONSTIPATION Last administered on 09/09/16 06:25; Admin Dose 30 ML; Start 09/08/16 at 12:00 Polyethylene Glycol (Miralax) 17 gm DAILY PO Last administered on 09/11/16 08: 53; Admin Dose 17 GM; Start 09/08/16 at 12:00 Docusate Sodium (Colace) 100 mg BID PO Last administered on 09/11/16 08:54; Admin Dose 100 MG; Start 09/08/16 at 21:00 Phenol (Cepastat Lozenge) 1 lozenge Q1H PRN [place] SORE THROAT Last administered on 09/10/16 15:39; Admin Dose 1 LOZENGE; Start 09/08/16 at 12:00 TAM ROSE Sep 11, 2016 11:52
[2016-09-11] MEDS: CEPASTAT LOZENGE MT PRN ×2 (11:56→16:42)
[2016-09-11 12:00] VITALS: BP 136/61; PULSE 67; RESP 19
[2016-09-11 12:28] LABS: EOSINOPHILS # 0.1 10^3/ul (0.0-0.5); LYMPHOCYTES # 0.5 10^3/ul (0.8-2.9); MONOCYTE # 0.1 10^3/ul (0.3-0.9); NEUTROPHIL # 0.7 10^3/ul (1.6-7.5); PLATELET ESTIMATE PLT APPEAR DECREASED
[2016-09-11 16:38] VITALS: BP 148/69; PULSE 68; RESP 18
[2016-09-11 20:05] VITALS: BP 142/65; RESP 20
[2016-09-11] MEDS: AMLODIPINE 5 MG TAB PO SCH (20:47)
[2016-09-11] MEDS: INSULIN GLARGINE [LANtus] 3 ML PEN SC SCH (20:51)
[2016-09-12] VITALS (8 sets, daily range): BP systolic 126–150; BP diastolic 61–66; PULSE 62–91; RESP 16–18
[2016-09-12] MEDS: ACCUCHECK AT 2AM (Patients on SS coverage) XX SCH (02:00)
[2016-09-12] MEDS: SOD CHLORIDE 0.9% 1,000 ML IV SCH (04:10)
[2016-09-12 05:26] LABS: HEMATOCRIT 24.5 % (42.0-52.0); MEAN CORPUSCULAR HEMOGLOBIN 26.5 pg (29.0-33.0); MEAN CORPUSCULAR HGB CONC 32.7 g/dl (32.0-37.0); MEAN CORPUSCULAR VOLUME 81.3 fl (82.0-101.0); MEAN PLATELET VOLUME 7.3 fl (7.4-10.4); RED BLOOD COUNT 3.01 10^6/ul (4.70-6.10); RED CELL DISTRIBUTION WIDTH 19.6 % (11.5-14.5); UNCORRECTED WBC 1.3 10^3/ul (4.8-10.8); WHITE BLOOD COUNT 1.3 10^3/ul (4.8-10.8)
[2016-09-12 05:39] LABS: POTASSIUM 3.8 mmol/L (3.5-5.1)
[2016-09-12 05:41] LABS: CREATININE 0.66 mg/dl (0.61-1.24)
[2016-09-12 05:42] LABS: ALBUMIN/GLOBULIN RATIO 0.68; BILIRUBIN,INDIRECT 0.5 mg/dl (0-1.1); BILIRUBIN,TOTAL 0.5 mg/dl (0.2-1.3); CALCIUM 8.6 mg/dl (8.4-10.2); TOTAL PROTEIN 7.4 g/dl (6.1-8.1)
[2016-09-12 06:10] LABS: URIC ACID 2.8 mg/dl (3.1-7.9)
[2016-09-12] MEDS: CYTARABINE IVPB SCH (06:10)
[2016-09-12] MEDS: SOD CHLORIDE 0.9% IVPB SCH (06:10)
[2016-09-12 06:28] LABS: CONDITION 1; LH ANALYZER COMMENTS 1; PLATELET COUNT 14 10^3/UL (140-440)
[2016-09-12] MEDS: ACCUCHECK XX SCH ×4 (07:50→21:00)
[2016-09-12] MEDS: POLYETHYLENE GLYCOL 17 GM PACKET PO SCH (09:00)
[2016-09-12] MEDS ORDERED: PHYTONADIONE 10 MG/ML INJ SC ONE (09:00)
[2016-09-12] MEDS: ALLOPURINOL 300 MG TAB PO SCH (09:18)
[2016-09-12] MEDS: SUCRALFATE 1 GM TAB PO SCH ×4 (09:18→20:59)
[2016-09-12] MEDS: DOCUSATE SODIUM 100 MG CAP PO SCH ×2 (09:18→20:59)
[2016-09-12] MEDS: CEPASTAT LOZENGE MT PRN (09:18)
[2016-09-12] MEDS: FLUTICASONE 0.05% 16 GM NAS SPRAY NASAL SCH (09:19)
[2016-09-12] MEDS: INSULIN ASPART [NOVOLOG] 3 ML PEN SC SCH ×3 (09:20→17:39)
[2016-09-12 10:25] LABS: LYMPHOCYTES # 0.5 10^3/ul (0.8-2.9); MONOCYTE # 0.1 10^3/ul (0.3-0.9); NEUTROPHIL # 0.6 10^3/ul (1.6-7.5)
--- NOTE | 2016-09-12 11:55 | CONS ---
Date/Time of Note Date/Time of Note DATE: 09/12/16 TIME: 11:54 Assessment/Plan Assessment/Plan Chief Complaint/Hosp Course 71 yo with CMML who is currently off therapy admitted for symptomatic anemia and thrombocytopenia. 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 Pt has been started on 7+3 and is tolerating chemotherapy well. Problems: Additional Assessment/Plan -continue with induction chemotherapy 7+3 . today is day 7 -s/p 1 units of platelets 09/02/16 and 09/10/16. CT head negative 09/02/16. Transfuse plt < 10, Hgb < 8 -Flow showed 30% blasts on peripheral blood consistent with AML with monocytic component. s/p BMBx 09/04/16, revealing AML (acute myelomonocytic leukemia, M4) , NPM1, FLT3 and CEBPA pending. Discussed with Dr. Gallegos, her primary oncologist, who is ok with induction chemotherapy. -Discussed with patient's daughter Tawny ([phone]). Patient and family agreeable to induction chemotherapy with 7+3 -Continue tumor lysis labs and allopurinol -PICC line placed -Patient will need to stay inpatient for 3-4 weeks to await count recovery and monitor for infection, transfusions, etc. Patient will need D14 bone marrow. Side effects and course explained to the patient and family. Cytarabine 100 mg/m2 CIV over 24 hours D1-7 Idarubicin 12 mg/m2 IVP D1-3 Problems: Consultation Date/Type/Reason Admit Date/Time Aug 31, 2016 at 00:38 Initial Consult Date 09/02/16 Type of Consultation: Hematology/Oncology Referring Provider: TAM ROSE 24 HR Interval Summary Free Text/Dictation Patient doing well, continues to have occasional cough which is unchanged. Afebrile, no N/V, tolerating chemo well. Exam/Review of Systems Vital Signs Vitals Vital Signs Date Time Temp Pulse Resp B/P Pulse Ox O2 Delivery O2 Flow Rate FiO2 09/12/16 11:42 97.0 71 18 130/63 98 Room Air Intake and Output 09/11/16 09/11/16 09/12/16 15:00 23:00 07:00 Intake Total 1490.829 ml 1050 ml Output Total 1300 ml 1800 ml Balance 190.829 ml -750 ml Exam Constitutional: alert, oriented Head: atraumatic, normocephalic Eyes: nl conjunctiva ENMT: nl external ears & nose Neck: non-tender, supple Respiratory: clear to auscultation, normal air movement Cardiovascular: nl pulses, regular rate and rhythm Gastrointestinal: soft Musculoskeletal: nl extremities to inspection, nl gait and stance Extremities: normal pulses Neurological: PRODUCT DESIGN MANAGER II-XII intact Results Result Diagram: 09/12/1641909/12/16 0420 Results 24 hrs Laboratory Tests Test 09/11/16 16:24 09/11/16 20:43 09/12/16 04:20 09/12/16 08:15 Bedside Glucose 234 H 211 76 Alanine Aminotransferase (ALT/SGPT) 21 Albumin 3.0 L Albumin/Globulin Ratio 0.68 Alkaline Phosphatase 73 Anion Gap 12 Aspartate Amino Transf (AST/SGOT) 18 Band Neutrophils % 2.0 Basophils # 0.0 Basophils % 2.0 Blast Cells % 1.0 H Blastocytes # 0.0 Blood Morphology Comment Blood Urea Nitrogen 13 Calcium Level 8.6 Carbon Dioxide Level 28 Chloride Level 103 Creatinine 0.66 Differential Comment MANUAL DIFF Direct Bilirubin 0.00 Eosinophils # 0.0 Eosinophils % 2.0 Globulin 4.40 H Glucose Level 110 Hematocrit 24.5 L Hemoglobin 8.0 L Indirect Bilirubin 0.5 Lactate Dehydrogenase 589 Lymphocytes # 0.5 L Lymphocytes % 39.0 Mean Corpuscular Hemoglobin 26.5 L Mean Corpuscular Hemoglobin Concent 32.7 Mean Corpuscular Volume 81.3 L Mean Platelet Volume 7.3 #L Monocytes # 0.1 L Monocytes % 6.0 Neutrophils # 0.6 L Neutrophils % 45.0 Nucleated Red Blood Cells # Nucleated Red Blood Cells % Platelet Count 14 #*L Potassium Level 3.8 Promyelocytes # 0.0 Promyelocytes % 3.0 H Red Blood Count 3.01 L Red Cell Distribution Width 19.6 H Sodium Level 139 Total Bilirubin 0.5 Total Protein 7.4 Uric Acid 2.8 L White Blood Count 1.3 L Test 09/12/16 11:40 Bedside Glucose 134 Medications Medications Current Medications Miscellaneous Information 1 ea NOTE XX ; Start 08/31/16 at 02:00 Glucose (Glutose) 15 gm Q15M PRN PO DECREASED GLUCOSE; Start 08/31/16 at 02:00 Glucose (Glutose) 22.5 gm Q15M PRN PO DECREASED GLUCOSE; Start 08/31/16 at 02:00 Dextrose (D50w Syringe) 25 ml Q15M PRN IV DECREASED GLUCOSE; Start 08/31/16 at 02:00 Dextrose (D50w Syringe) 50 ml Q15M PRN IV DECREASED GLUCOSE; Start 08/31/16 at 02:00 Glucagon (Glucagen) 1 mg Q15M PRN IM DECREASED GLUCOSE; Start 08/31/16 at 02:00 Glucose (Glutose) 15 gm Q15M PRN BUCCAL DECREASED GLUCOSE; Start 08/31/16 at 02: 00 Fluticasone Propionate (Flonase 0.05% Nasal) 2 spray DAILY NASAL Last administered on 09/12/16 09:19; Admin Dose 2 SPRAY; Start 08/31/16 at 09:00 Diagnostic Test (Pha) (Accucheck) 1 ea 02 XX ; Start 09/01/16 at 02:00 Insulin Glargine (Lantus) 18 unit QHS SC Last administered on 09/11/16 20:51; Admin Dose 18 UNIT; Start 09/01/16 at 00:00 Ondansetron HCl (Zofran Inj) 4 mg Q6H PRN IV NAUSEA AND/OR VOMITING; Start 09/01 at 11:30 Acetaminophen (Tylenol Tab) 650 mg Q6H PRN PO PAIN AND OR ELEVATED TEMP Last administered on 09/08/16 21:40; Admin Dose 650 MG; Start 09/01/16 at 11:30 Diphenhydramine HCl (Benadryl) 25 mg Q6H PRN PO ITCHING Last administered on 22:32; Admin Dose 25 MG; Start 09/01/16 at 11:30 Guaifenesin/ Dextromethorphan (Robitussin Dm Liquid Cup) 10 ml Q4H PRN PO COUGH Last administered on 09/09/16 20:28; Admin Dose 10 ML; Start 09/02/16 at 14:00 Allopurinol 300 mg 300 mg DAILY PO Last administered on 09/12/16 09:18; Admin Dose 300 MG; Start 09/04/16 at 16:30 Cytarabine 174 mg/ Sodium Chloride 500 ml @ 20.833 mls/ hr Q24H IVPB Last administered on 09/12/16 06:10; Admin Dose 20.833 MLS/HR; Start 09/05/16 at 18: 00; Stop 09/12/16 at 17:59 Sodium Chloride (NS) 1,000 ml @ 50 mls/hr Q20H IV Last administered on 04:10; Admin Dose 50 MLS/HR; Start 09/05/16 at 12:00 IV Flush (NS 10 ml) 10 ml PRN PRN IV IV PROTOCOL; Start 09/05/16 at 12:30 Bisacodyl (Dulcolax Supp) 10 mg DAILY PRN [place] CONSTIPATION; Start 09/08/16 at 12 :00 Magnesium Hydroxide (Milk Of Mag) 30 ml DAILY PRN PO CONSTIPATION Last administered on 09/09/16 06:25; Admin Dose 30 ML; Start 09/08/16 at 12:00 Polyethylene Glycol (Miralax) 17 gm DAILY PO Last administered on 09/11/16 08: 53; Admin Dose 17 GM; Start 09/08/16 at 12:00 Docusate Sodium (Colace) 100 mg BID PO Last administered on 09/12/16 09:18; Admin Dose 100 MG; Start 09/08/16 at 21:00 Phenol (Cepastat Lozenge) 1 lozenge Q1H PRN MT SORE THROAT Last administered on 09/12/16 09:18; Admin Dose 1 LOZENGE; Start 09/08/16 at 12:00 Amlodipine Besylate (Norvasc) 5 mg QHS PO Last administered on 09/11/16 20:47 ; Admin Dose 5 MG; Start 09/11/16 at 21:00 ROMA BUNDY MD Sep 12, 2016 11:55
--- NOTE | 2016-09-12 16:14 | PN ---
Date/Time of Note Date/Time of Note DATE: 09/12/16 TIME: 16:08 Assessment/Plan VTE Prophylaxis VTE Prophylaxis Intervention: SCD's Lines/Catheters IV Catheter Type (from Nrs): PICC Line Central line still needed: Yes (for chemo ) Urinary Cath still in place: No Assessment/Plan Assessment/Plan 71 yo male with: 1. 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 2. Diabetes mellitus, with associated neuropathy manifest by numbness in both feet. Previous clinical suspicion for diabetic gastroparesis. He has moderate hyperglycemia this time, for reasons unclear. No solis source of infection identified, and he has no fever. Continue Lantus and SSI, will resume Metformin as patient tolerating po well Zofran as needed 3. Chronic benign positional vertigo. Continue Meclizine PRN 4. Gastroesophageal reflux disease. Continue Protonix 6. URI with cough and sore throat: CXR stable on admission, symptomatic treatment. 7. Hypertension: on Norvasc. Prophylaxis. Sequential compression devices to lower extremity for DVT prevention, PPI for GI ppx DISPOSITION: On induction chemo, last day today and Neutropenic/pancytopenic. Subjective 24 Hr Interval Summary Free Text/Dictation Patient doing well No complaints and on Chemo with pancytopenia now Exam/Review of Systems Vital Signs Vitals Vital Signs Date Time Temp Pulse Resp B/P Pulse Ox O2 Delivery O2 Flow Rate FiO2 09/12/16 11:42 97.0 71 18 130/63 98 Room Air Intake and Output 09/11/16 09/11/16 09/12/16 15:00 23:00 07:00 Intake Total 1490.829 ml 1050 ml Output Total 1300 ml 1800 ml Balance 190.829 ml -750 ml Exam Constitutional: alert, oriented, well developed Cardiovascular: nl pulses, regular rate and rhythm Gastrointestinal: non-tender, soft Musculoskeletal: nl extremities to inspection Extremities: normal pulses, other (no edema, clubbing or cyanosis ) Neurological: MACHINE GREASER II-XII intact, nl mental status, nl speech Results Result Diagram: 09/12/1641909/12/16419 Results 24 hrs Laboratory Tests Test 09/11/16 16:24 09/11/16 20:43 09/12/16 04:20 09/12/16 08:15 Bedside Glucose 234 H 211 76 Alanine Aminotransferase (ALT/SGPT) 21 Albumin 3.0 L Albumin/Globulin Ratio 0.68 Alkaline Phosphatase 73 Anion Gap 12 Aspartate Amino Transf (AST/SGOT) 18 Band Neutrophils % 2.0 Basophils # 0.0 Basophils % 2.0 Blast Cells % 1.0 H Blastocytes # 0.0 Blood Morphology Comment Blood Urea Nitrogen 13 Calcium Level 8.6 Carbon Dioxide Level 28 Chloride Level 103 Creatinine 0.66 Differential Comment MANUAL DIFF Direct Bilirubin 0.00 Eosinophils # 0.0 Eosinophils % 2.0 Globulin 4.40 H Glucose Level 110 Hematocrit 24.5 L Hemoglobin 8.0 L Indirect Bilirubin 0.5 Lactate Dehydrogenase 589 Lymphocytes # 0.5 L Lymphocytes % 39.0 Mean Corpuscular Hemoglobin 26.5 L Mean Corpuscular Hemoglobin Concent 32.7 Mean Corpuscular Volume 81.3 L Mean Platelet Volume 7.3 #L Monocytes # 0.1 L Monocytes % 6.0 Neutrophils # 0.6 L Neutrophils % 45.0 Nucleated Red Blood Cells # Nucleated Red Blood Cells % Platelet Count 14 #*L Potassium Level 3.8 Promyelocytes # 0.0 Promyelocytes % 3.0 H Red Blood Count 3.01 L Red Cell Distribution Width 19.6 H Sodium Level 139 Total Bilirubin 0.5 Total Protein 7.4 Uric Acid 2.8 L White Blood Count 1.3 L Test 09/12/16 11:40 Bedside Glucose 134 Medications Medications Current Medications Miscellaneous Information 1 ea NOTE XX ; Start 08/31/16 at 02:00 Glucose (Glutose) 15 gm Q15M PRN PO DECREASED GLUCOSE; Start 08/31/16 at 02:00 Glucose (Glutose) 22.5 gm Q15M PRN PO DECREASED GLUCOSE; Start 08/31/16 at 02:00 Dextrose (D50w Syringe) 25 ml Q15M PRN IV DECREASED GLUCOSE; Start 08/31/16 at 02:00 Dextrose (D50w Syringe) 50 ml Q15M PRN IV DECREASED GLUCOSE; Start 08/31/16 at 02:00 Glucagon (Glucagen) 1 mg Q15M PRN IM DECREASED GLUCOSE; Start 08/31/16 at 02:00 Glucose (Glutose) 15 gm Q15M PRN BUCCAL DECREASED GLUCOSE; Start 08/31/16 at 02: 00 Fluticasone Propionate (Flonase 0.05% Nasal) 2 spray DAILY NASAL Last administered on 09/12/16 09:19; Admin Dose 2 SPRAY; Start 08/31/16 at 09:00 Diagnostic Test (Pha) (Accucheck) 1 ea 02 XX ; Start 09/01/16 at 02:00 Insulin Glargine (Lantus) 18 unit QHS SC Last administered on 09/11/16 20:51; Admin Dose 18 UNIT; Start 09/01/16 at 00:00 Ondansetron HCl (Zofran Inj) 4 mg Q6H PRN IV NAUSEA AND/OR VOMITING; Start 09/01 at 11:30 Acetaminophen (Tylenol Tab) 650 mg Q6H PRN PO PAIN AND OR ELEVATED TEMP Last administered on 09/08/16 21:40; Admin Dose 650 MG; Start 09/01/16 at 11:30 Diphenhydramine HCl (Benadryl) 25 mg Q6H PRN PO ITCHING Last administered on 22:32; Admin Dose 25 MG; Start 09/01/16 at 11:30 Guaifenesin/ Dextromethorphan (Robitussin Dm Liquid Cup) 10 ml Q4H PRN PO COUGH Last administered on 09/09/16 20:28; Admin Dose 10 ML; Start 09/02/16 at 14:00 Allopurinol 300 mg 300 mg DAILY PO Last administered on 09/12/16 09:18; Admin Dose 300 MG; Start 09/04/16 at 16:30 Cytarabine 174 mg/ Sodium Chloride 500 ml @ 20.833 mls/ hr Q24H IVPB Last administered on 09/12/16 06:10; Admin Dose 20.833 MLS/HR; Start 09/05/16 at 18: 00; Stop 09/12/16 at 17:59 Sodium Chloride (NS) 1,000 ml @ 50 mls/hr Q20H IV Last administered on 04:10; Admin Dose 50 MLS/HR; Start 09/05/16 at 12:00 IV Flush (NS 10 ml) 10 ml PRN PRN IV IV PROTOCOL; Start 09/05/16 at 12:30 Bisacodyl (Dulcolax Supp) 10 mg DAILY PRN [place] CONSTIPATION; Start 09/08/16 at 12 :00 Magnesium Hydroxide (Milk Of Mag) 30 ml DAILY PRN PO CONSTIPATION Last administered on 09/09/16 06:25; Admin Dose 30 ML; Start 09/08/16 at 12:00 Polyethylene Glycol (Miralax) 17 gm DAILY PO Last administered on 09/11/16 08: 53; Admin Dose 17 GM; Start 09/08/16 at 12:00 Docusate Sodium (Colace) 100 mg BID PO Last administered on 09/12/16 09:18; Admin Dose 100 MG; Start 09/08/16 at 21:00 Phenol (Cepastat Lozenge) 1 lozenge Q1H PRN MT SORE THROAT Last administered on 09/12/16 09:18; Admin Dose 1 LOZENGE; Start 09/08/16 at 12:00 Amlodipine Besylate (Norvasc) 5 mg QHS PO Last administered on 09/11/16 20:47 ; Admin Dose 5 MG; Start 09/11/16 at 21:00 TAM ROSE Sep 12, 2016 16:14
[2016-09-12] MEDS: DIPHENHYDRAMINE 25 MG CAP PO PRN (19:59)
[2016-09-12] MEDS: AMLODIPINE 5 MG TAB PO SCH (21:00)
[2016-09-12] MEDS: INSULIN GLARGINE [LANtus] 3 ML PEN SC SCH (21:01)
[2016-09-12] MEDS: GUAIFENESIN/DM 5ML CUP PO PRN (23:00)
[2016-09-13] MEDS: SOD CHLORIDE 0.9% 1,000 ML IV SCH ×2 (00:16→20:55)
[2016-09-13] MEDS: ACCUCHECK AT 2AM (Patients on SS coverage) XX SCH (02:00)
[2016-09-13 04:00] VITALS: BP 137/80; PULSE 81; RESP 17
[2016-09-13] MEDS: DIPHENHYDRAMINE 25 MG CAP PO PRN (05:22)
[2016-09-13 05:39] LABS: HEMATOCRIT 27.3 % (42.0-52.0); HEMOGLOBIN 8.9 g/dl (14.0-18.0); MEAN CORPUSCULAR HEMOGLOBIN 26.5 pg (29.0-33.0); MEAN CORPUSCULAR HGB CONC 32.7 g/dl (32.0-37.0); MEAN CORPUSCULAR VOLUME 81.2 fl (82.0-101.0); RED BLOOD COUNT 3.37 10^6/ul (4.70-6.10); RED CELL DISTRIBUTION WIDTH 19.3 % (11.5-14.5); UNCORRECTED WBC 1.7 10^3/ul (4.8-10.8); WHITE BLOOD COUNT 1.7 10^3/ul (4.8-10.8)
[2016-09-13 06:01] LABS: INR 1.11; PROTIME 14.3 Sec (12.2-14.2); PT RATIO 1.1
[2016-09-13 06:02] LABS: PARTIAL THROMBOPLASTIN TIME 43.1 Sec (25.0-35.0)
[2016-09-13 06:05] LABS: ALBUMIN 3.6 g/dl (3.3-4.9)
[2016-09-13 06:06] LABS: POTASSIUM 3.6 mmol/L (3.5-5.1)
[2016-09-13 06:08] LABS: ALBUMIN/GLOBULIN RATIO 0.7; BILIRUBIN,INDIRECT 0.7 mg/dl (0-1.1); BILIRUBIN,TOTAL 0.7 mg/dl (0.2-1.3); CONDITION 1; CREATININE 0.63 mg/dl (0.61-1.24); LH ANALYZER COMMENTS 1; MEAN PLATELET VOLUME 7.4 fl (7.4-10.4); TOTAL PROTEIN 8.7 g/dl (6.1-8.1)
[2016-09-13 06:09] LABS: CALCIUM 9.1 mg/dl (8.4-10.2)
[2016-09-13 06:10] LABS: PLATELET COUNT 12 10^3/UL (140-440)
[2016-09-13 06:14] LABS: URIC ACID 2.9 mg/dl (3.1-7.9)
[2016-09-13 07:34] VITALS: BP 131/63; RESP 16
[2016-09-13 07:55] LABS: EOSINOPHILS # 0.1 10^3/ul (0.0-0.5); HYPOCHROMASIA 2+; LYMPHOCYTES # 0.9 10^3/ul (0.8-2.9); MICROCYTOSIS 1+; MONOCYTE # 0.1 10^3/ul (0.3-0.9); NEUTROPHIL # 0.5 10^3/ul (1.6-7.5)
[2016-09-13 07:56] LABS: ANISOCYTOSIS 2+
[2016-09-13] MEDS: ACCUCHECK XX SCH ×4 (08:44→21:44)
[2016-09-13] MEDS: FLUTICASONE 0.05% 16 GM NAS SPRAY NASAL SCH (08:50)
[2016-09-13] MEDS: ALLOPURINOL 300 MG TAB PO SCH (08:51)
[2016-09-13] MEDS: POLYETHYLENE GLYCOL 17 GM PACKET PO SCH (08:51)
[2016-09-13] MEDS: DOCUSATE SODIUM 100 MG CAP PO SCH ×2 (08:51→20:52)
[2016-09-13] MEDS: SUCRALFATE 1 GM TAB PO SCH ×4 (08:51→21:43)
[2016-09-13] MEDS: INSULIN ASPART [NOVOLOG] 3 ML PEN SC SCH ×3 (09:08→17:27)
--- NOTE | 2016-09-13 11:42 | PN ---
Date/Time of Note Date/Time of Note DATE: 09/13/16 TIME: 11:34 Assessment/Plan VTE Prophylaxis VTE Prophylaxis Intervention: SCD's Lines/Catheters IV Catheter Type (from Nrsg): PICC Line Central line still needed: Yes (for IV access/chemo ) Urinary Cath still in place: No Assessment/Plan Assessment/Plan 71 yo male with: 1. 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 Follow up Hematology recs and counts tomorrow. 2. Diabetes mellitus, with associated neuropathy manifest by numbness in both feet. Previous clinical suspicion for diabetic gastroparesis. He has moderate hyperglycemia this time, for reasons unclear. No solis source of infection identified, and he has no fever. AM BG down to 65 today, decrease Lantus to 15 units qhs and continue SSI. Zofran as needed 3. Chronic benign positional vertigo. Continue Meclizine PRN 4. Gastroesophageal reflux disease. Continue Protonix 6. URI with cough and sore throat: CXR stable on admission, symptomatic treatment. 7. Hypertension: on Norvasc. 8. Cold sore: Abreva and mouth wash ordered Prophylaxis. Sequential compression devices to lower extremity for DVT prevention, PPI for GI ppx DISPOSITION: S/p induction chemo, following counts, for now still neutropenic/ pancytopenic. Subjective 24 Hr Interval Summary Free Text/Dictation Patient actually completed Chemo today No complaints except found to have a cold sore so on Abreva Afebrile and count mostly the same from yesterday Exam/Review of Systems Vital Signs Vitals Vital Signs Date Time Temp Pulse Resp B/P Pulse Ox O2 Delivery O2 Flow Rate FiO2 09/13/16 07:34 98.2 72 16 131/63 97 09/13/16 04:00 Room Air Intake and Output 09/12/16 09/12/16 09/13/16 15:00 23:00 07:00 Intake Total 1899.163 ml 1350 ml Output Total 1800 ml 1900 ml Balance 99.163 ml -550 ml Exam Constitutional: alert, oriented, well developed ENMT: other (cold sore ) Respiratory: clear to auscultation, normal air movement Cardiovascular: nl pulses, regular rate and rhythm Gastrointestinal: non-tender, soft Musculoskeletal: nl extremities to inspection Extremities: normal pulses, other (no edema, clubbing or cyanosis) 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, nl mental status, nl speech, nl strength Results Result Diagram: 09/13/16 0451 09/13/16 0451 Results 24 hrs Laboratory Tests Test 09/12/16 11:40 09/12/16 16:46 09/12/16 20:58 09/13/16 04:51 Bedside Glucose 134 121 209 Activated Partial Thromboplast Time 43.1 H Alanine Aminotransferase (ALT/SGPT) 23 Albumin 3.6 Albumin/Globulin Ratio 0.70 Alkaline Phosphatase 96 Anion Gap 16 Anisocytosis 2+ Aspartate Amino Transf (AST/SGOT) 23 Basophils # 0.0 Basophils % 2.0 Blast Cells % 3.0 H Blastocytes # 0.1 Blood Morphology Comment Blood Urea Nitrogen 12 Calcium Level 9.1 Carbon Dioxide Level 26 Chloride Level 103 Creatinine 0.63 Direct Bilirubin 0.00 Eosinophils # 0.1 Eosinophils % 5.0 Globulin 5.10 H Glucose Level 67 #L Hematocrit 27.3 L Hemoglobin 8.9 L Hypochromasia 2+ INR International Normalized Ratio 1.11 Indirect Bilirubin 0.7 Lactate Dehydrogenase 707 H Lymphocytes # 0.9 Lymphocytes % 50.0 Mean Corpuscular Hemoglobin 26.5 L Mean Corpuscular Hemoglobin Concent 32.7 Mean Corpuscular Volume 81.2 L Mean Platelet Volume 7.4 Microcytosis 1+ Monocytes # 0.1 L Monocytes % 8.0 Neutrophils # 0.5 L Neutrophils % 28.0 L Platelet Count 12 *L Potassium Level 3.6 Promyelocytes # 0.1 Promyelocytes % 4.0 H Prothrombin Time 14.3 H Prothrombin Time Ratio 1.1 Red Blood Count 3.37 L Red Cell Distribution Width 19.3 H Sodium Level 141 Total Bilirubin 0.7 Total Protein 8.7 H Uric Acid 2.9 L White Blood Count 1.7 #L Medications Medications Current Medications Miscellaneous Information 1 ea NOTE XX ; Start 08/31/16 at 02:00 Glucose (Glutose) 15 gm Q15M PRN PO DECREASED GLUCOSE; Start 08/31/16 at 02:00 Glucose (Glutose) 22.5 gm Q15M PRN PO DECREASED GLUCOSE; Start 08/31/16 at 02:00 Dextrose (D50w Syringe) 25 ml Q15M PRN IV DECREASED GLUCOSE; Start 08/31/16 at 02:00 Dextrose (D50w Syringe) 50 ml Q15M PRN IV DECREASED GLUCOSE; Start 08/31/16 at 02:00 Glucagon (Glucagen) 1 mg Q15M PRN IM DECREASED GLUCOSE; Start 08/31/16 at 02:00 Glucose (Glutose) 15 gm Q15M PRN BUCCAL DECREASED GLUCOSE; Start 08/31/16 at 02: 00 Fluticasone Propionate (Flonase 0.05% Nasal) 2 spray DAILY NASAL Last administered on 09/13/16 08:50; Admin Dose 2 SPRAY; Start 08/31/16 at 09:00 Diagnostic Test (Pha) (Accucheck) 1 ea 02 XX ; Start 09/01/16 at 02:00 Insulin Glargine (Lantus) 18 unit QHS SC Last administered on 09/12/16 21:01; Admin Dose 18 UNIT; Start 09/01/16 at 00:00 Ondansetron HCl (Zofran Inj) 4 mg Q6H PRN IV NAUSEA AND/OR VOMITING; Start 09/01 at 11:30 Acetaminophen (Tylenol Tab) 650 mg Q6H PRN PO PAIN AND OR ELEVATED TEMP Last administered on 09/08/16 21:40; Admin Dose 650 MG; Start 09/01/16 at 11:30 Diphenhydramine HCl (Benadryl) 25 mg Q6H PRN PO ITCHING Last administered on 05:22; Admin Dose 25 MG; Start 09/01/16 at 11:30 Guaifenesin/ Dextromethorphan (Robitussin Dm Liquid Cup) 10 ml Q4H PRN PO COUGH Last administered on 09/12/16 23:00; Admin Dose 10 ML; Start 09/02/16 at 14:00 Allopurinol 300 mg 300 mg DAILY PO Last administered on 09/13/16 08:51; Admin Dose 300 MG; Start 09/04/16 at 16:30 Sodium Chloride (NS) 1,000 ml @ 50 mls/hr Q20H IV Last administered on 00:16; Admin Dose 50 MLS/HR; Start 09/05/16 at 12:00 IV Flush (NS 10 ml) 10 ml PRN PRN IV IV PROTOCOL; Start 09/05/16 at 12:30 Bisacodyl (Dulcolax Supp) 10 mg DAILY PRN [place] CONSTIPATION; Start 09/08/16 at 12 :00 Magnesium Hydroxide (Milk Of Mag) 30 ml DAILY PRN PO CONSTIPATION Last administered on 09/09/16 06:25; Admin Dose 30 ML; Start 09/08/16 at 12:00 Polyethylene Glycol (Miralax) 17 gm DAILY PO Last administered on 09/13/16 08: 51; Admin Dose 17 GM; Start 09/08/16 at 12:00 Docusate Sodium (Colace) 100 mg BID PO Last administered on 09/13/16 08:51; Admin Dose 100 MG; Start 09/08/16 at 21:00 Phenol (Cepastat Lozenge) 1 lozenge Q1H PRN MT SORE THROAT Last administered on 09/12/16 09:18; Admin Dose 1 LOZENGE; Start 09/08/16 at 12:00 Amlodipine Besylate (Norvasc) 5 mg QHS PO Last administered on 09/12/16 21:00 ; Admin Dose 5 MG; Start 09/11/16 at 21:00 Miscellaneous Medication (Bax Susp) 30 ml QID PO ; Start 09/13/16 at 13:00 TAM ROSE Sep 13, 2016 11:42
[2016-09-13] MEDS: DOCOSANOL 2 GM CREAM TOP PRN ×3 (12:42→21:01)
[2016-09-13] MEDS: MYLANTA PO SCH ×3 (12:42→21:44)
[2016-09-13] MEDS: DIPHENHYD PO SCH ×3 (12:42→21:44)
[2016-09-13] MEDS: LIDO PO SCH ×3 (12:42→21:44)
[2016-09-13] MEDS: GUAIFENESIN/DM 5ML CUP PO PRN (12:43)
[2016-09-13] MEDS: CEPASTAT LOZENGE MT PRN (14:24)
[2016-09-13 19:30] VITALS: BP 150/70; PULSE 98; RESP 20
[2016-09-13] MEDS: AMLODIPINE 5 MG TAB PO SCH (20:55)
[2016-09-13] MEDS: INSULIN GLARGINE [LANtus] 3 ML PEN SC SCH (21:03)
[2016-09-14] MEDS: GUAIFENESIN/DM 5ML CUP PO PRN (01:16)
[2016-09-14] MEDS: ACCUCHECK AT 2AM (Patients on SS coverage) XX SCH (02:00)
[2016-09-14] MEDS: DOCOSANOL 2 GM CREAM TOP PRN ×3 (04:18→11:16)
[2016-09-14 05:48] LABS: HEMATOCRIT 22.5 % (42.0-52.0); HEMOGLOBIN 7.3 g/dl (14.0-18.0); MEAN CORPUSCULAR HEMOGLOBIN 26.4 pg (29.0-33.0); MEAN CORPUSCULAR HGB CONC 32.3 g/dl (32.0-37.0); MEAN CORPUSCULAR VOLUME 81.6 fl (82.0-101.0); MEAN PLATELET VOLUME 7.5 fl (7.4-10.4); RED BLOOD COUNT 2.76 10^6/ul (4.70-6.10); UNCORRECTED WBC 0.9 10^3/ul (4.8-10.8); WHITE BLOOD COUNT 0.9 10^3/ul (4.8-10.8)
[2016-09-14 05:52] LABS: ALBUMIN 3.1 g/dl (3.3-4.9); URIC ACID 2.7 mg/dl (3.1-7.9)
[2016-09-14 05:53] LABS: POTASSIUM 4.1 mmol/L (3.5-5.1)
[2016-09-14 05:55] LABS: ALBUMIN/GLOBULIN RATIO 0.68; BILIRUBIN,INDIRECT 0.6 mg/dl (0-1.1); BILIRUBIN,TOTAL 0.6 mg/dl (0.2-1.3); CREATININE 0.59 mg/dl (0.61-1.24); TOTAL PROTEIN 7.6 g/dl (6.1-8.1)
[2016-09-14 05:56] LABS: CALCIUM 8.7 mg/dl (8.4-10.2)
[2016-09-14 06:03] LABS: CONDITION 1; LH ANALYZER COMMENTS 1
[2016-09-14 06:24] LABS: PLATELET COUNT 6 10^3/UL (140-440)
[2016-09-14 07:45] VITALS: BP 132/61; RESP 18
[2016-09-14] MEDS: ALLOPURINOL 300 MG TAB PO SCH (08:25)
[2016-09-14] MEDS: POLYETHYLENE GLYCOL 17 GM PACKET PO SCH (08:25)
[2016-09-14] MEDS: MYLANTA PO SCH ×4 (08:25→20:43)
[2016-09-14] MEDS: DIPHENHYD PO SCH ×4 (08:25→20:43)
[2016-09-14] MEDS: LIDO PO SCH ×4 (08:25→20:43)
[2016-09-14] MEDS: DOCUSATE SODIUM 100 MG CAP PO SCH ×2 (08:25→20:42)
[2016-09-14] MEDS: ACCUCHECK XX SCH ×4 (08:26→20:59)
[2016-09-14] MEDS: FLUTICASONE 0.05% 16 GM NAS SPRAY NASAL SCH (08:27)
[2016-09-14] MEDS: SUCRALFATE 1 GM TAB PO SCH ×4 (08:38→20:43)
[2016-09-14] MEDS: INSULIN ASPART [NOVOLOG] 3 ML PEN SC SCH ×3 (08:40→18:14)
--- NOTE | 2016-09-14 09:13 | HKNOTE ---
DATE OF SERVICE: 09/13/2016 HISTORY OF PRESENT ILLNESS: Mr. Grove is a 71-year-old Thai-speaking gentleman who recently was diagnosed to have acute myelocytic leukemia. He had induction of chemotherapy with daunorubicin and cytarabine until yesterday. The patient complains of some cough. PHYSICAL EXAMINATION: GENERAL: Patient is alert, oriented. He is afebrile. HEART AND LUNGS: Unremarkable. ABDOMEN: Soft, no masses. GENITOURINARY: External genitalia normal. EXTREMITIES: No edema, clubbing, or cyanosis. SKIN: Dry. No bruises. LABORATORY DATA: His WBC count is down to 1700, hemoglobin 8.9, and platelets of 12,000. IMPRESSION: 1. Acute myelocytic leukemia, status post chemotherapy until yesterday. 2. Pancytopenia secondary to acute myelocytic leukemia. PLAN AND DISCUSSION: This patient is severely pancytopenic. We need to monitor him for fevers or b leeding. We will repeat his CBC and CMP tomorrow. He will need transfusion on a p.r.n. basis. Dictated By: MACY MONIQUE/MALIK Conf#: [id number] DID#: [id number]
[2016-09-14 11:33] VITALS: BP 138/65; PULSE 75
[2016-09-14 11:46] LABS: TOTAL CELLS COUNTED % 100
[2016-09-14 11:51] LABS: PLATELET ESTIMATE PLT APPEAR DECREASED
--- NOTE | 2016-09-14 16:05 | PN ---
Date/Time of Note Date/Time of Note DATE: 09/14/16 TIME: 15:50 Assessment/Plan VTE Prophylaxis VTE Prophylaxis Intervention: SCD's Lines/Catheters IV Catheter Type (from Nrsg): PICC Line Central line still needed: Yes (for IV access ) Urinary Cath still in place: No Assessment/Plan Assessment/Plan 71 yo male with: 1. 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 2. Diabetes mellitus, with associated neuropathy manifest by numbness in both feet. Previous clinical suspicion for diabetic gastroparesis. He has moderate hyperglycemia this time, for reasons unclear. No solis source of infection identified, and he has no fever. AM BG down to 65 today, decrease Lantus to 15 units qhs and continue SSI. Zofran as needed 3. Chronic benign positional vertigo. Continue Meclizine PRN 4. Gastroesophageal reflux disease. Continue Protonix 6. URI with cough and sore throat: CXR stable on admission, symptomatic treatment. 7. Hypertension: on Norvasc. 8. Oral mucosa irritiation, cold sore and odynophagia: Continue abreva and mouth wash, Nystatin started today too. Prophylaxis. Sequential compression devices to lower extremity for DVT prevention, PPI for GI ppx DISPOSITION: S/p induction chemo, following counts, for now still neutropenic/ pancytopenic requirinf close monitoring and blood product transfusion . Subjective 24 Hr Interval Summary Free Text/Dictation Patient is severely pancytopenic and Plts down to 6 today requiring transfusion 1 unit PRBC No fevers Hemodynamically stable Complaining of odynophagia Exam/Review of Systems Vital Signs Vitals Vital Signs Date Time Temp Pulse Resp B/P Pulse Ox O2 Delivery O2 Flow Rate FiO2 09/14/16 11:33 98.4 75 138/65 98 Room Air 09/14/16 07:45 18 Intake and Output 09/13/16 09/13/16 09/14/16 15:00 23:00 07:00 Intake Total 2070 ml Output Total 1900 ml Balance 170 ml Exam Constitutional: alert, oriented, well developed ENMT: other (mucosal irritation and odynophagia ) Cardiovascular: nl pulses, regular rate and rhythm Gastrointestinal: non-tender, soft Musculoskeletal: nl extremities to inspection Extremities: normal pulses, other (no edema, clubbing or cyanosis ) Neurological: 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 II-XII intact, nl mental status, nl speech, nl strength Results Result Diagram: 09/14/16 0420 09/14/16 0420 Results 24 hrs Laboratory Tests Test 09/13/16 20:50 09/14/16 04:20 09/14/16 07:55 09/14/16 11:46 Bedside Glucose 209 164 219 Alanine Aminotransferase (ALT/SGPT) 21 Albumin 3.1 L Albumin/Globulin Ratio 0.68 Alkaline Phosphatase 79 Anion Gap 14 Aspartate Amino Transf (AST/SGOT) 19 Band Neutrophils % 8.0 H Blast Cells % 2.0 H Blastocytes # 2.0 Blood Morphology Comment Blood Urea Nitrogen 12 Calcium Level 8.7 Carbon Dioxide Level 26 Chloride Level 103 Clumped Platelets Creatinine 0.59 L Direct Bilirubin 0.00 Eosinophils # 2.0 H Eosinophils % 2.0 Globulin 4.50 H Glucose Level 158 Hematocrit 22.5 L Hemoglobin 7.3 L Indirect Bilirubin 0.6 Lactate Dehydrogenase 571 Lymphocytes # 59.0 H Lymphocytes % 59.0 H Mean Corpuscular Hemoglobin 26.4 L Mean Corpuscular Hemoglobin Concent 32.3 Mean Corpuscular Volume 81.6 L Mean Platelet Volume 7.5 Monocytes # 12.0 H Monocytes % 12.0 H Myelocytes # 1.0 Myelocytes % 1.0 H Neutrophils # 15.0 H Neutrophils % 15.0 L Nucleated Red Blood Cells % 1.0 H Platelet Count 6 #*L Platelet Estimate PLT APPEAR DECREASED Potassium Level 4.1 Promyelocytes # 1.0 Promyelocytes % 1.0 H Red Blood Count 2.76 L Red Cell Distribution Width 20.0 H Sodium Level 139 Total Bilirubin 0.6 Total Protein 7.6 # Uric Acid 2.7 L White Blood Count 0.9 #L Medications Medications Current Medications Miscellaneous Information 1 ea NOTE XX ; Start 08/31/16 at 02:00 Glucose (Glutose) 15 gm Q15M PRN PO DECREASED GLUCOSE; Start 08/31/16 at 02:00 Glucose (Glutose) 22.5 gm Q15M PRN PO DECREASED GLUCOSE; Start 08/31/16 at 02:00 Dextrose (D50w Syringe) 25 ml Q15M PRN IV DECREASED GLUCOSE; Start 08/31/16 at 02:00 Dextrose (D50w Syringe) 50 ml Q15M PRN IV DECREASED GLUCOSE; Start 08/31/16 at 02:00 Glucagon (Glucagen) 1 mg Q15M PRN IM DECREASED GLUCOSE; Start 08/31/16 at 02:00 Glucose (Glutose) 15 gm Q15M PRN BUCCAL DECREASED GLUCOSE; Start 08/31/16 at 02: 00 Fluticasone Propionate (Flonase 0.05% Nasal) 2 spray DAILY NASAL Last administered on 09/14/16 08:27; Admin Dose 2 SPRAY; Start 08/31/16 at 09:00 Diagnostic Test (Pha) (Accucheck) 1 ea 02 XX ; Start 09/01/16 at 02:00 Ondansetron HCl (Zofran Inj) 4 mg Q6H PRN IV NAUSEA AND/OR VOMITING; Start 09/01 at 11:30 Acetaminophen (Tylenol Tab) 650 mg Q6H PRN PO PAIN AND OR ELEVATED TEMP Last administered on 09/08/16 21:40; Admin Dose 650 MG; Start 09/01/16 at 11:30 Diphenhydramine HCl (Benadryl) 25 mg Q6H PRN PO ITCHING Last administered on 05:22; Admin Dose 25 MG; Start 09/01/16 at 11:30 Guaifenesin/ Dextromethorphan (Robitussin Dm Liquid Cup) 10 ml Q4H PRN PO COUGH Last administered on 09/14/16 01:16; Admin Dose 10 ML; Start 09/02/16 at 14:00 Allopurinol 300 mg 300 mg DAILY PO Last administered on 09/14/16 08:25; Admin Dose 300 MG; Start 09/04/16 at 16:30 Sodium Chloride (NS) 1,000 ml @ 50 mls/hr Q20H IV Last administered on 20:55; Admin Dose 50 MLS/HR; Start 09/05/16 at 12:00 IV Flush (NS 10 ml) 10 ml PRN PRN IV IV PROTOCOL; Start 09/05/16 at 12:30 Bisacodyl (Dulcolax Supp) 10 mg DAILY PRN [place] CONSTIPATION; Start 09/08/16 at 12 :00 Magnesium Hydroxide (Milk Of Mag) 30 ml DAILY PRN PO CONSTIPATION Last administered on 09/09/16 06:25; Admin Dose 30 ML; Start 09/08/16 at 12:00 Polyethylene Glycol (Miralax) 17 gm DAILY PO Last administered on 09/14/16 08: 25; Admin Dose 17 GM; Start 09/08/16 at 12:00 Docusate Sodium (Colace) 100 mg BID PO Last administered on 09/14/16 08:25; Admin Dose 100 MG; Start 09/08/16 at 21:00 Phenol (Cepastat Lozenge) 1 lozenge Q1H PRN [place] SORE THROAT Last administered on 09/13/16 14:24; Admin Dose 1 LOZENGE; Start 09/08/16 at 12:00 Amlodipine Besylate (Norvasc) 5 mg QHS PO Last administered on 09/13/16 20:55 ; Admin Dose 5 MG; Start 09/11/16 at 21:00 Miscellaneous Medication (Bax Susp) 30 ml QID PO Last administered on 12:17; Admin Dose 30 ML; Start 09/13/16 at 13:00 Insulin Glargine (Lantus) 15 unit QHS SC Last administered on 09/13/16 21:03; Admin Dose 15 UNIT; Start 09/13/16 at 21:00 TAM ROSE Sep 14, 2016 16:01
[2016-09-14] MEDS: CEPASTAT LOZENGE MT PRN (16:43)
[2016-09-14] MEDS: NYSTATIN SUSP 5 ML CUP PO SCH ×2 (16:43→20:43)
[2016-09-14] MEDS ORDERED: ACETAMINOPHEN 325 MG TAB PO SCH (17:00)
[2016-09-14] MEDS: SOD CHLORIDE 0.9% 1,000 ML IV SCH (18:12)
[2016-09-14 20:15] VITALS: BP 132/63; PULSE 73; RESP 18
--- NOTE | 2016-09-14 20:33 | PN ---
DATE: 09/14/2016 HISTORY OF PRESENT ILLNESS: Mr. Grove is a 71-year-old Guinean-speaking gentleman, status post masha ction chemotherapy for AML until 2 days ago. He complains of a sore on the left side of the tongue and difficulty in swallowing. PHYSICAL EXAMINATION: GENERAL: A moderately built male. He is afebrile. He is alert, oriented, cooperative. HEART AND LUNGS: Unremarkable. ABDOMEN: Soft. No masses. SKIN: No rashes or petechiae. MOUTH: The patient has a couple of ulcers on the left side of his tongue. EXTREMITIES: No edema, clubbing or cyanosis. LABORATORY DATA: His CBC shows hemoglobin down to 7.3 today, WBC still is 900, and platelets are on ly 6000. His CMP is unremarkable. PLAN AND ASSESSMENT: 1. Acute myeloid leukemia, status post induction chemotherapy. This patient has mouth sores now. Will give Xylocaine viscous. We will try to give him fluids. 2. Severe pancytopenia secondary to chemotherapy. His hemoglobin is only 7.3, and he will need a p acked cell transfusion. He already had a platelet transfusion today since his platelet count was le ss than 10,000. Will monitor his CBC closely. Dictated By: MACY MONIQUE/MALIK Conf#: [id number] DID#: [id number]
[2016-09-14] MEDS: AMLODIPINE 5 MG TAB PO SCH (20:43)
[2016-09-14] MEDS: INSULIN GLARGINE [LANtus] 3 ML PEN SC SCH (21:01)
[2016-09-15] MEDS: ACCUCHECK AT 2AM (Patients on SS coverage) XX SCH (01:45)
[2016-09-15] MEDS: CEPASTAT LOZENGE MT PRN (03:52)
[2016-09-15 05:47] LABS: HEMATOCRIT 24.3 % (42.0-52.0); HEMOGLOBIN 8.1 g/dl (14.0-18.0); MEAN CORPUSCULAR HEMOGLOBIN 27.2 pg (29.0-33.0); MEAN CORPUSCULAR HGB CONC 33.2 g/dl (32.0-37.0); MEAN CORPUSCULAR VOLUME 81.9 fl (82.0-101.0); MEAN PLATELET VOLUME 7.1 fl (7.4-10.4); PLATELET COUNT 36 10^3/UL (140-440); RED BLOOD COUNT 2.96 10^6/ul (4.70-6.10); RED CELL DISTRIBUTION WIDTH 17.7 % (11.5-14.5); UNCORRECTED WBC 0.9 10^3/ul (4.8-10.8); WHITE BLOOD COUNT 0.9 10^3/ul (4.8-10.8)
[2016-09-15 05:48] LABS: ALBUMIN 3.2 g/dl (3.3-4.9)
[2016-09-15 05:51] LABS: ALBUMIN/GLOBULIN RATIO 0.72; BILIRUBIN,INDIRECT 0.6 mg/dl (0-1.1); BILIRUBIN,TOTAL 0.6 mg/dl (0.2-1.3); CREATININE 0.61 mg/dl (0.61-1.24); TOTAL PROTEIN 7.6 g/dl (6.1-8.1)
[2016-09-15 05:52] LABS: CALCIUM 8.9 mg/dl (8.4-10.2)
[2016-09-15 06:06] LABS: URIC ACID 2.5 mg/dl (3.1-7.9)
[2016-09-15 06:15] LABS: CONDITION 1; LH ANALYZER COMMENTS 1
[2016-09-15] MEDS: ACCUCHECK XX SCH ×4 (07:50→21:00)
[2016-09-15 08:23] VITALS: BP 147/73; RESP 18
[2016-09-15] MEDS: SUCRALFATE 1 GM TAB PO SCH ×4 (08:40→20:41)
[2016-09-15] MEDS: FLUTICASONE 0.05% 16 GM NAS SPRAY NASAL SCH (08:41)
[2016-09-15] MEDS: MYLANTA PO SCH ×4 (08:42→20:41)
[2016-09-15] MEDS: DIPHENHYD PO SCH ×4 (08:42→20:41)
[2016-09-15] MEDS: LIDO PO SCH ×4 (08:42→20:41)
[2016-09-15] MEDS: DOCUSATE SODIUM 100 MG CAP PO SCH ×2 (08:42→20:41)
[2016-09-15] MEDS: POLYETHYLENE GLYCOL 17 GM PACKET PO SCH (08:43)
[2016-09-15] MEDS: ALLOPURINOL 300 MG TAB PO SCH (08:43)
[2016-09-15] MEDS: NYSTATIN SUSP 5 ML CUP PO SCH ×4 (08:43→20:41)
[2016-09-15] MEDS: INSULIN ASPART [NOVOLOG] 3 ML PEN SC SCH ×3 (08:50→17:22)
[2016-09-15 09:26] LABS: LYMPHOCYTES # 0.5 10^3/ul (0.8-2.9); MONOCYTE # 0.2 10^3/ul (0.3-0.9); NEUTROPHIL # 0.1 10^3/ul (1.6-7.5); PLATELET ESTIMATE PLT APPEAR DECREASED
[2016-09-15] MEDS: SOD CHLORIDE 0.9% 1,000 ML IV SCH (12:00)
--- NOTE | 2016-09-15 14:03 | CONS ---
Date/Time of Note Date/Time of Note DATE: 09/15/16 TIME: 14:01 Assessment/Plan Assessment/Plan Chief Complaint/Hosp Course 71 yo with CMML who is currently off therapy admitted for symptomatic anemia and thrombocytopenia. 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 Pt has been started on 7+3 and tolerated chemotherapy well thus far. Problems: Additional Assessment/Plan -s/p induction chemotherapy 7+3 . today is day 10 -s/p 1 units of platelets 09/02/16 and 09/10/16. CT head negative 09/02/16. Transfuse plt < 10, Hgb < 8 -Flow showed 30% blasts on peripheral blood consistent with AML with monocytic component. s/p BMBx 09/04/16, revealing AML (acute myelomonocytic leukemia, M4) , NPM1, FLT3 and CEBPA pending. Discussed with Dr. Gallegos, her primary oncologist, who is ok with induction chemotherapy. -Discussed with patient's daughter Tawny ([phone]). Patient and family agreeable to induction chemotherapy with 7+3 -Continue tumor lysis labs and allopurinol -PICC line placed -Patient will need to stay inpatient for 3-4 weeks to await count recovery and monitor for infection, transfusions, etc. Patient will need D14 bone marrow. Side effects and course explained to the patient and family. -magic mouth wash for mucositis Cytarabine 100 mg/m2 CIV over 24 hours D1-7 Idarubicin 12 mg/m2 IVP D1- Consultation Date/Type/Reason Admit Date/Time Aug 31, 2016 at 00:38 Initial Consult Date 09/02/16 Type of Consultation: Hematology/Oncology Reason for Consultation AML Referring Provider: TAM ROSE 24 HR Interval Summary Free Text/Dictation patient is complaining of mouth sores Exam/Review of Systems Vital Signs Vitals Vital Signs Date Time Temp Pulse Resp B/P Pulse Ox O2 Delivery O2 Flow Rate FiO2 09/15/16 08:23 98.2 74 18 147/73 98 09/14/16 20:15 Room Air Intake and Output 09/14/16 09/14/16 09/15/16 15:00 23:00 07:00 Intake Total 350 ml 1840 ml 1500 ml Output Total 800 ml 1050 ml 1650 ml Balance -450 ml 790 ml -150 ml Exam Constitutional: alert, oriented Psych: no complaints Head: atraumatic, normocephalic Eyes: nl conjunctiva ENMT: nl external ears & nose, other (+ mucositis) Neck: supple Respiratory: clear to auscultation, normal air movement Cardiovascular: regular rate and rhythm Gastrointestinal: soft Musculoskeletal: nl extremities to inspection, nl gait and stance Results Result Diagram: 09/15/16 0417 09/15/16 0500 Results 24 hrs Laboratory Tests Test 09/14/16 17:21 09/14/16 20:57 09/15/16 04:17 09/15/16 04:40 Bedside Glucose 98 165 Band Neutrophils % 1.0 Basophils # 0.0 Basophils % 5.0 H Blood Morphology Comment Eosinophils # 0.0 Eosinophils % 1.0 Hematocrit 24.3 L Hemoglobin 8.1 L Lymphocytes # 0.5 L Lymphocytes % 60.0 H Mean Corpuscular Hemoglobin 27.2 L Mean Corpuscular Hemoglobin Concent 33.2 Mean Corpuscular Volume 81.9 L Mean Platelet Volume 7.1 L Metamyelocytes # 0.0 Metamyelocytes % 1.0 H Monocytes # 0.2 L Monocytes % 19.0 H Myelocytes # 0.0 Myelocytes % 1.0 H Neutrophils # 0.1 L Neutrophils % 10.0 L Platelet Count 36 #L Platelet Estimate PLT APPEAR DECREASED Promyelocytes # 0.0 Promyelocytes % 2.0 H Red Blood Count 2.96 L Red Cell Distribution Width 17.7 H White Blood Count 0.9 L Lactate Dehydrogenase 690 H Uric Acid 2.5 L Test 09/15/16 05:00 09/15/16 08:40 09/15/16 12:35 Alanine Aminotransferase (ALT/SGPT) 20 Albumin 3.2 L Albumin/Globulin Ratio 0.72 Alkaline Phosphatase 81 Anion Gap 14 Aspartate Amino Transf (AST/SGOT) 20 Blood Urea Nitrogen 13 Calcium Level 8.9 Carbon Dioxide Level 27 Chloride Level 101 Creatinine 0.61 Direct Bilirubin 0.00 Globulin 4.40 H Glucose Level 123 Indirect Bilirubin 0.6 Potassium Level 4.0 Sodium Level 138 Total Bilirubin 0.6 Total Protein 7.6 Bedside Glucose 124 227 H Medications Medications Current Medications Miscellaneous Information 1 ea NOTE XX ; Start 08/31/16 at 02:00 Glucose (Glutose) 15 gm Q15M PRN PO DECREASED GLUCOSE; Start 08/31/16 at 02:00 Glucose (Glutose) 22.5 gm Q15M PRN PO DECREASED GLUCOSE; Start 08/31/16 at 02:00 Dextrose (D50w Syringe) 25 ml Q15M PRN IV DECREASED GLUCOSE; Start 08/31/16 at 02:00 Dextrose (D50w Syringe) 50 ml Q15M PRN IV DECREASED GLUCOSE; Start 08/31/16 at 02:00 Glucagon (Glucagen) 1 mg Q15M PRN IM DECREASED GLUCOSE; Start 08/31/16 at 02:00 Glucose (Glutose) 15 gm Q15M PRN BUCCAL DECREASED GLUCOSE; Start 08/31/16 at 02: 00 Fluticasone Propionate (Flonase 0.05% Nasal) 2 spray DAILY NASAL Last administered on 09/15/16 08:41; Admin Dose 2 SPRAY; Start 08/31/16 at 09:00 Diagnostic Test (Pha) (Accucheck) 1 ea 02 XX ; Start 09/01/16 at 02:00 Ondansetron HCl (Zofran Inj) 4 mg Q6H PRN IV NAUSEA AND/OR VOMITING; Start 09/01 at 11:30 Acetaminophen (Tylenol Tab) 650 mg Q6H PRN PO PAIN AND OR ELEVATED TEMP Last administered on 09/08/16 21:40; Admin Dose 650 MG; Start 09/01/16 at 11:30 Diphenhydramine HCl (Benadryl) 25 mg Q6H PRN PO ITCHING Last administered on 05:22; Admin Dose 25 MG; Start 09/01/16 at 11:30 Guaifenesin/ Dextromethorphan (Robitussin Dm Liquid Cup) 10 ml Q4H PRN PO COUGH Last administered on 09/14/16 01:16; Admin Dose 10 ML; Start 09/02/16 at 14:00 Allopurinol 300 mg 300 mg DAILY PO Last administered on 09/15/16 08:43; Admin Dose 300 MG; Start 09/04/16 at 16:30 Sodium Chloride (NS) 1,000 ml @ 50 mls/hr Q20H IV Last administered on 18:12; Admin Dose 50 MLS/HR; Start 09/05/16 at 12:00 IV Flush (NS 10 ml) 10 ml PRN PRN IV IV PROTOCOL; Start 09/05/16 at 12:30 Bisacodyl (Dulcolax Supp) 10 mg DAILY PRN [place] CONSTIPATION; Start 09/08/16 at 12 :00 Magnesium Hydroxide (Milk Of Mag) 30 ml DAILY PRN PO CONSTIPATION Last administered on 09/09/16 06:25; Admin Dose 30 ML; Start 09/08/16 at 12:00 Polyethylene Glycol (Miralax) 17 gm DAILY PO Last administered on 09/15/16 08: 43; Admin Dose 17 GM; Start 09/08/16 at 12:00 Docusate Sodium (Colace) 100 mg BID PO Last administered on 09/15/16 08:42; Admin Dose 100 MG; Start 09/08/16 at 21:00 Phenol (Cepastat Lozenge) 1 lozenge Q1H PRN [place] SORE THROAT Last administered on 09/15/16 03:52; Admin Dose 1 LOZENGE; Start 09/08/16 at 12:00 Amlodipine Besylate (Norvasc) 5 mg QHS PO Last administered on 09/14/16 20:43 ; Admin Dose 5 MG; Start 09/11/16 at 21:00 Miscellaneous Medication (Bax Susp) 30 ml QID PO Last administered on 12:37; Admin Dose 30 ML; Start 09/13/16 at 13:00 Insulin Glargine (Lantus) 15 unit QHS SC Last administered on 09/14/16 21:01; Admin Dose 15 UNIT; Start 09/13/16 at 21:00 Nystatin (Nystatin Susp) 5 ml QID PO Last administered on 09/15/16 12:37; Admin Dose 5 ML; Start 09/14/16 at 17:00 MISHA FOREMAN M.D. Sep 15, 2016 14:03
--- NOTE | 2016-09-15 17:04 | PN ---
Date/Time of Note Date/Time of Note DATE: 09/15/16 TIME: 16:55 Assessment/Plan VTE Prophylaxis VTE Prophylaxis Intervention: SCD's Lines/Catheters IV Catheter Type (from Nrsg): PICC Line Central line still needed: Yes (for IV access ) Urinary Cath still in place: No Assessment/Plan Assessment/Plan 71 yo male with: 1. 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 2. Diabetes mellitus, with associated neuropathy manifest by numbness in both feet. Previous clinical suspicion for diabetic gastroparesis. He has moderate hyperglycemia this time, for reasons unclear. No solis source of infection identified, and he has no fever. BG stable on current dosing of Lantus at 15 units qhs and continue SSI. Zofran as needed 3. Chronic benign positional vertigo. Continue Meclizine PRN 4. Gastroesophageal reflux disease. Continue Protonix 6. URI with cough and sore throat: CXR stable on admission, symptomatic treatment. 7. Hypertension: on Norvasc. 8. Oral mucosa irritiation, cold sore and odynophagia: Continue abreva and mouth wash, Nystatin. Prophylaxis. Sequential compression devices to lower extremity for DVT prevention, PPI for GI ppx DISPOSITION: S/p induction chemo, following counts, still neutropenic/ pancytopenic requiring close monitoring and blood product transfusion as needed . Subjective 24 Hr Interval Summary Free Text/Dictation Patient getting severely neutropenic with ANC of 99 Hemodynamically stable and afebrile Odynophagia ongoing from small superficial ulceration lateral left side of tongue Appreciate Hematology recs Exam/Review of Systems Vital Signs Vitals Vital Signs Date Time Temp Pulse Resp B/P Pulse Ox O2 Delivery O2 Flow Rate FiO2 09/15/16 08:23 98.2 74 18 147/73 98 09/14/16 20:15 Room Air Intake and Output 09/14/16 09/14/16 09/15/16 15:00 23:00 07:00 Intake Total 350 ml 1840 ml 1500 ml Output Total 800 ml 1050 ml 1650 ml Balance -450 ml 790 ml -150 ml Exam Constitutional: alert, oriented, well developed ENMT: other (oodynophagia from small ulceration on tongue ) Neck: supple Respiratory: clear to auscultation, normal air movement Cardiovascular: nl pulses, regular rate and rhythm Gastrointestinal: non-tender, soft Musculoskeletal: nl extremities to inspection Extremities: normal pulses, other (no edema, clubbing or cyanosis ) 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, nl mental status, nl speech, nl strength Results Result Diagram: 09/15/16 0417 09/15/16 0500 Results 24 hrs Laboratory Tests Test 09/14/16 17:21 09/14/16 20:57 09/15/16 04:17 09/15/16 04:40 Bedside Glucose 98 165 Band Neutrophils % 1.0 Basophils # 0.0 Basophils % 5.0 H Blood Morphology Comment Eosinophils # 0.0 Eosinophils % 1.0 Hematocrit 24.3 L Hemoglobin 8.1 L Lymphocytes # 0.5 L Lymphocytes % 60.0 H Mean Corpuscular Hemoglobin 27.2 L Mean Corpuscular Hemoglobin Concent 33.2 Mean Corpuscular Volume 81.9 L Mean Platelet Volume 7.1 L Metamyelocytes # 0.0 Metamyelocytes % 1.0 H Monocytes # 0.2 L Monocytes % 19.0 H Myelocytes # 0.0 Myelocytes % 1.0 H Neutrophils # 0.1 L Neutrophils % 10.0 L Platelet Count 36 #L Platelet Estimate PLT APPEAR DECREASED Promyelocytes # 0.0 Promyelocytes % 2.0 H Red Blood Count 2.96 L Red Cell Distribution Width 17.7 H White Blood Count 0.9 L Lactate Dehydrogenase 690 H Uric Acid 2.5 L Test 09/15/16 05:00 09/15/16 08:40 09/15/16 12:35 Alanine Aminotransferase (ALT/SGPT) 20 Albumin 3.2 L Albumin/Globulin Ratio 0.72 Alkaline Phosphatase 81 Anion Gap 14 Aspartate Amino Transf (AST/SGOT) 20 Blood Urea Nitrogen 13 Calcium Level 8.9 Carbon Dioxide Level 27 Chloride Level 101 Creatinine 0.61 Direct Bilirubin 0.00 Globulin 4.40 H Glucose Level 123 Indirect Bilirubin 0.6 Potassium Level 4.0 Sodium Level 138 Total Bilirubin 0.6 Total Protein 7.6 Bedside Glucose 124 227 H Medications Medications Current Medications Miscellaneous Information 1 ea NOTE XX ; Start 08/31/16 at 02:00 Glucose (Glutose) 15 gm Q15M PRN PO DECREASED GLUCOSE; Start 08/31/16 at 02:00 Glucose (Glutose) 22.5 gm Q15M PRN PO DECREASED GLUCOSE; Start 08/31/16 at 02:00 Dextrose (D50w Syringe) 25 ml Q15M PRN IV DECREASED GLUCOSE; Start 08/31/16 at 02:00 Dextrose (D50w Syringe) 50 ml Q15M PRN IV DECREASED GLUCOSE; Start 08/31/16 at 02:00 Glucagon (Glucagen) 1 mg Q15M PRN IM DECREASED GLUCOSE; Start 08/31/16 at 02:00 Glucose (Glutose) 15 gm Q15M PRN BUCCAL DECREASED GLUCOSE; Start 08/31/16 at 02: 00 Fluticasone Propionate (Flonase 0.05% Nasal) 2 spray DAILY NASAL Last administered on 09/15/16 08:41; Admin Dose 2 SPRAY; Start 08/31/16 at 09:00 Diagnostic Test (Pha) (Accucheck) 1 ea 02 XX ; Start 09/01/16 at 02:00 Ondansetron HCl (Zofran Inj) 4 mg Q6H PRN IV NAUSEA AND/OR VOMITING; Start 09/01 at 11:30 Acetaminophen (Tylenol Tab) 650 mg Q6H PRN PO PAIN AND OR ELEVATED TEMP Last administered on 09/08/16 21:40; Admin Dose 650 MG; Start 09/01/16 at 11:30 Diphenhydramine HCl (Benadryl) 25 mg Q6H PRN PO ITCHING Last administered on 05:22; Admin Dose 25 MG; Start 09/01/16 at 11:30 Guaifenesin/ Dextromethorphan (Robitussin Dm Liquid Cup) 10 ml Q4H PRN PO COUGH Last administered on 09/14/16 01:16; Admin Dose 10 ML; Start 09/02/16 at 14:00 Allopurinol 300 mg 300 mg DAILY PO Last administered on 09/15/16 08:43; Admin Dose 300 MG; Start 09/04/16 at 16:30 Sodium Chloride (NS) 1,000 ml @ 50 mls/hr Q20H IV Last administered on 12:00; Admin Dose 50 MLS/HR; Start 09/05/16 at 12:00 IV Flush (NS 10 ml) 10 ml PRN PRN IV IV PROTOCOL; Start 09/05/16 at 12:30 Bisacodyl (Dulcolax Supp) 10 mg DAILY PRN [place] CONSTIPATION; Start 09/08/16 at 12 :00 Magnesium Hydroxide (Milk Of Mag) 30 ml DAILY PRN PO CONSTIPATION Last administered on 09/09/16 06:25; Admin Dose 30 ML; Start 09/08/16 at 12:00 Polyethylene Glycol (Miralax) 17 gm DAILY PO Last administered on 09/15/16 08: 43; Admin Dose 17 GM; Start 09/08/16 at 12:00 Docusate Sodium (Colace) 100 mg BID PO Last administered on 09/15/16 08:42; Admin Dose 100 MG; Start 09/08/16 at 21:00 Phenol (Cepastat Lozenge) 1 lozenge Q1H PRN [place] SORE THROAT Last administered on 09/15/16 03:52; Admin Dose 1 LOZENGE; Start 09/08/16 at 12:00 Amlodipine Besylate (Norvasc) 5 mg QHS PO Last administered on 09/14/16 20:43 ; Admin Dose 5 MG; Start 09/11/16 at 21:00 Miscellaneous Medication (Bax Susp) 30 ml QID PO Last administered on 12:37; Admin Dose 30 ML; Start 09/13/16 at 13:00 Insulin Glargine (Lantus) 15 unit QHS SC Last administered on 09/14/16 21:01; Admin Dose 15 UNIT; Start 09/13/16 at 21:00 Nystatin (Nystatin Susp) 5 ml QID PO Last administered on 09/15/16 12:37; Admin Dose 5 ML; Start 09/14/16 at 17:00 TAM ROSE Sep 15, 2016 17:04
[2016-09-15 19:47] VITALS: BP 151/71; RESP 18
[2016-09-15] MEDS: AMLODIPINE 5 MG TAB PO SCH (20:41)
[2016-09-15] MEDS: INSULIN GLARGINE [LANtus] 3 ML PEN SC SCH (20:44)
[2016-09-16] MEDS: ACCUCHECK AT 2AM (Patients on SS coverage) XX SCH (02:00)
[2016-09-16] MEDS: GUAIFENESIN/DM 5ML CUP PO PRN (02:22)
[2016-09-16 05:42] LABS: ALBUMIN 3.3 g/dl (3.3-4.9); POTASSIUM 4.1 mmol/L (3.5-5.1)
[2016-09-16 05:44] LABS: CREATININE 0.68 mg/dl (0.61-1.24)
[2016-09-16 05:45] LABS: ALBUMIN/GLOBULIN RATIO 0.71; BILIRUBIN,INDIRECT 0.7 mg/dl (0-1.1); BILIRUBIN,TOTAL 0.7 mg/dl (0.2-1.3); CALCIUM 8.7 mg/dl (8.4-10.2); TOTAL PROTEIN 7.9 g/dl (6.1-8.1)
[2016-09-16 05:48] LABS: URIC ACID 2.4 mg/dl (3.1-7.9)
[2016-09-16 06:21] LABS: HEMATOCRIT 24.8 % (42.0-52.0); HEMOGLOBIN 8.2 g/dl (14.0-18.0); MEAN CORPUSCULAR HGB CONC 33.2 g/dl (32.0-37.0); MEAN CORPUSCULAR VOLUME 81.2 fl (82.0-101.0); MEAN PLATELET VOLUME 7.3 fl (7.4-10.4); RED BLOOD COUNT 3.05 10^6/ul (4.70-6.10); UNCORRECTED WBC 1.2 10^3/ul (4.8-10.8); WHITE BLOOD COUNT 1.2 10^3/ul (4.8-10.8)
[2016-09-16 06:26] LABS: CONDITION 1; LH ANALYZER COMMENTS 1
[2016-09-16 06:28] LABS: PLATELET COUNT 22 10^3/UL (140-440)
[2016-09-16] MEDS: NYSTATIN SUSP 5 ML CUP PO SCH ×4 (08:35→20:27)
[2016-09-16] MEDS: SUCRALFATE 1 GM TAB PO SCH ×4 (08:35→20:26)
[2016-09-16] MEDS: MYLANTA PO SCH ×4 (08:35→20:26)
[2016-09-16] MEDS: ALLOPURINOL 300 MG TAB PO SCH (08:35)
[2016-09-16] MEDS: DOCUSATE SODIUM 100 MG CAP PO SCH ×2 (08:35→20:26)
[2016-09-16] MEDS: POLYETHYLENE GLYCOL 17 GM PACKET PO SCH (08:35)
[2016-09-16] MEDS: LIDO PO SCH ×4 (08:35→20:26)
[2016-09-16] MEDS: DIPHENHYD PO SCH ×4 (08:35→20:26)
[2016-09-16] MEDS: ACCUCHECK XX SCH ×4 (08:36→20:40)
[2016-09-16] MEDS: FLUTICASONE 0.05% 16 GM NAS SPRAY NASAL SCH (08:37)
[2016-09-16] MEDS: INSULIN ASPART [NOVOLOG] 3 ML PEN SC SCH ×3 (08:41→17:03)
[2016-09-16] MEDS: DOCOSANOL 2 GM CREAM TOP PRN ×4 (08:43→20:36)
[2016-09-16 08:47] VITALS: BP 140/67; RESP 18
[2016-09-16] MEDS: SOD CHLORIDE 0.9% 1,000 ML IV SCH (09:35)
[2016-09-16 10:53] LABS: LYMPHOCYTES # 0.8 10^3/ul (0.8-2.9); MONOCYTE # 0.1 10^3/ul (0.3-0.9); NEUTROPHIL # 0.2 10^3/ul (1.6-7.5)
[2016-09-16 10:54] LABS: ANISOCYTOSIS 1+
[2016-09-16 10:55] LABS: HYPOCHROMASIA 2+; MICROCYTOSIS 1+; PLATELET ESTIMATE PLT APPEAR DECREASED
--- NOTE | 2016-09-16 11:33 | PN ---
Date/Time of Note Date/Time of Note DATE: 09/16/16 TIME: 11:25 Assessment/Plan VTE Prophylaxis VTE Prophylaxis Intervention: SCD's Lines/Catheters IV Catheter Type (from Nrsg): PICC Line Central line still needed: Yes (for IV access ) Urinary Cath still in place: No Assessment/Plan Assessment/Plan 71 yo male with: 1. 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 2. Diabetes mellitus, with associated neuropathy manifest by numbness in both feet. Previous clinical suspicion for diabetic gastroparesis. He has moderate hyperglycemia this time, for reasons unclear. No solis source of infection identified, and he has no fever. BG stable on current dosing of Lantus at 15 units qhs and continue SSI. Zofran as needed 3. Chronic benign positional vertigo. Continue Meclizine PRN 4. Gastroesophageal reflux disease. Continue Protonix 6. URI with cough and sore throat: CXR stable on admission, symptomatic treatment. 7. Hypertension: on Norvasc. 8. Oral mucosa irritiation, cold sore and odynophagia: Continue abreva and mouth wash, Nystatin. Prophylaxis. Sequential compression devices to lower extremity for DVT prevention, PPI for GI ppx DISPOSITION: S/p induction chemo, following counts, still neutropenic/ pancytopenic requiring close monitoring and blood product transfusion as needed , ANC slightly better today. . Subjective 24 Hr Interval Summary Free Text/Dictation Patient feels a little better, sore throat somewhat better, tongue ulceration a little better Afebrile and ANC up to 216 today PT eval ordered Exam/Review of Systems Vital Signs Vitals Vital Signs Date Time Temp Pulse Resp B/P Pulse Ox O2 Delivery O2 Flow Rate FiO2 09/16/16 08:47 98.4 73 18 140/67 90 09/14/16 20:15 Room Air Intake and Output 09/15/16 09/15/16 09/16/16 14:59 22:59 06:59 Intake Total 500 ml 1050 ml 1700 ml Output Total 650 ml 1300 ml Balance 500 ml 400 ml 400 ml Exam Constitutional: alert, oriented, well developed Respiratory: clear to auscultation, normal air movement Cardiovascular: nl pulses, regular rate and rhythm Gastrointestinal: non-tender, soft Extremities: normal pulses, other (no edema, clubbing or cyanosis) 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, nl mental status, nl speech, other ( generalised weakness ) Results Result Diagram: 09/16/16 0505 09/16/16 0505 Results 24 hrs Laboratory Tests Test 09/15/16 12:35 09/15/16 17:15 09/15/16 20:42 09/16/16 02:22 Bedside Glucose 227 H 148 185 127 Test 09/16/16 05:05 09/16/16 07:38 Alanine Aminotransferase (ALT/SGPT) 22 Albumin 3.3 Albumin/Globulin Ratio 0.71 Alkaline Phosphatase 83 Anion Gap 13 Anisocytosis 1+ Aspartate Amino Transf (AST/SGOT) 19 Band Neutrophils % 3.0 Basophils # 0.0 Basophils % 3.0 H Blood Morphology Comment Blood Urea Nitrogen 12 Calcium Level 8.7 Carbon Dioxide Level 27 Chloride Level 100 Creatinine 0.68 Direct Bilirubin 0.00 Eosinophils # 0.0 Eosinophils % 4.0 Globulin 4.60 H Glucose Level 117 Hematocrit 24.8 L Hemoglobin 8.2 L Hypochromasia 2+ Indirect Bilirubin 0.7 Lactate Dehydrogenase 577 Lymphocytes # 0.8 Lymphocytes % 63.0 H Mean Corpuscular Hemoglobin 27.0 L Mean Corpuscular Hemoglobin Concent 33.2 Mean Corpuscular Volume 81.2 L Mean Platelet Volume 7.3 L Microcytosis 1+ Monocytes # 0.1 L Monocytes % 12.0 H Neutrophils # 0.2 L Neutrophils % 15.0 L Platelet Count 22 #*L Platelet Estimate PLT APPEAR DECREASED Potassium Level 4.1 Red Blood Count 3.05 L Red Cell Distribution Width 18.0 H Sodium Level 136 Total Bilirubin 0.7 Total Protein 7.9 Uric Acid 2.4 L White Blood Count 1.2 #L Bedside Glucose 144 Medications Medications Current Medications Miscellaneous Information 1 ea NOTE XX ; Start 08/31/16 at 02:00 Glucose (Glutose) 15 gm Q15M PRN PO DECREASED GLUCOSE; Start 08/31/16 at 02:00 Glucose (Glutose) 22.5 gm Q15M PRN PO DECREASED GLUCOSE; Start 08/31/16 at 02:00 Dextrose (D50w Syringe) 25 ml Q15M PRN IV DECREASED GLUCOSE; Start 08/31/16 at 02:00 Dextrose (D50w Syringe) 50 ml Q15M PRN IV DECREASED GLUCOSE; Start 08/31/16 at 02:00 Glucagon (Glucagen) 1 mg Q15M PRN IM DECREASED GLUCOSE; Start 08/31/16 at 02:00 Glucose (Glutose) 15 gm Q15M PRN BUCCAL DECREASED GLUCOSE; Start 08/31/16 at 02: 00 Fluticasone Propionate (Flonase 0.05% Nasal) 2 spray DAILY NASAL Last administered on 09/16/16 08:37; Admin Dose 2 SPRAY; Start 08/31/16 at 09:00 Diagnostic Test (Pha) (Accucheck) XX ; Start 09/01/16 at 02:00 Ondansetron HCl (Zofran Inj) 4 mg Q6H PRN IV NAUSEA AND/OR VOMITING; Start 09/01 at 11:30 Acetaminophen (Tylenol Tab) 650 mg Q6H PRN PO PAIN AND OR ELEVATED TEMP Last administered on 09/08/16 21:40; Admin Dose 650 MG; Start 09/01/16 at 11:30 Diphenhydramine HCl (Benadryl) 25 mg Q6H PRN PO ITCHING Last administered on 05:22; Admin Dose 25 MG; Start 09/01/16 at 11:30 Guaifenesin/ Dextromethorphan (Robitussin Dm Liquid Cup) 10 ml Q4H PRN PO COUGH Last administered on 09/16/16 02:22; Admin Dose 10 ML; Start 09/02/16 at 14:00 Allopurinol 300 mg 300 mg DAILY PO Last administered on 09/16/16 08:35; Admin Dose 300 MG; Start 09/04/16 at 16:30 Sodium Chloride (NS) 1,000 ml @ 50 mls/hr Q20H IV Last administered on 09:35; Admin Dose 50 MLS/HR; Start 09/05/16 at 12:00 IV Flush (NS 10 ml) 10 ml PRN PRN IV IV PROTOCOL; Start 09/05/16 at 12:30 Bisacodyl (Dulcolax Supp) 10 mg DAILY PRN [place] CONSTIPATION; Start 1/16/17 at 12 :00 Magnesium Hydroxide (Milk Of Mag) 30 ml DAILY PRN PO CONSTIPATION Last administered on 09/09/16 06:25; Admin Dose 30 ML; Start 09/08/16 at 12:00 Polyethylene Glycol (Miralax) 17 gm DAILY PO Last administered on 09/16/16 08: 35; Admin Dose 17 GM; Start 09/08/16 at 12:00 Docusate Sodium (Colace) 100 mg BID PO Last administered on 09/16/16 08:35; Admin Dose 100 MG; Start 09/08/16 at 21:00 Phenol (Cepastat Lozenge) 1 lozenge Q1H PRN [place] SORE THROAT Last administered on 09/15/16 03:52; Admin Dose 1 LOZENGE; Start 09/08/16 at 12:00 Amlodipine Besylate (Norvasc) 5 mg QHS PO Last administered on 09/15/16 20:41 ; Admin Dose 5 MG; Start 09/11/16 at 21:00 Miscellaneous Medication (Bax Susp) 30 ml QID PO Last administered on 08:35; Admin Dose 30 ML; Start 09/13/16 at 13:00 Insulin Glargine (Lantus) 15 unit QHS SC Last administered on 09/15/16 20:44; Admin Dose 15 UNIT; Start 09/13/16 at 21:00 Nystatin (Nystatin Susp) 5 ml QID PO Last administered on 09/16/16 08:35; Admin Dose 5 ML; Start 09/14/16 at 17:00 TAM ROSE Sep 16, 2016 11:33
--- NOTE | 2016-09-16 13:29 | CONS ---
Date/Time of Note Date/Time of Note DATE: 09/16/16 TIME: 13:28 Assessment/Plan Assessment/Plan Chief Complaint/Hosp Course 71 yo with CMML who is currently off therapy admitted for symptomatic anemia and thrombocytopenia. 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 Pt has been started on 7+3 and tolerated chemotherapy well thus far. Problems: Additional Assessment/Plan -s/p induction chemotherapy 7+3 . today is day 11 -s/p 1 units of platelets 09/02/16 and 09/10/16. CT head negative 09/02/16. Transfuse plt < 10, Hgb < 8. patient remains transfusion dependant -Flow showed 30% blasts on peripheral blood consistent with AML with monocytic component. s/p BMBx 09/04/16, revealing AML (acute myelomonocytic leukemia, M4) , NPM1, FLT3 and CEBPA pending. Discussed with Dr. Gallegos, her primary oncologist, who is ok with induction chemotherapy. -Discussed with patient's daughter Tawny ([phone]). Patient and family agreeable to induction chemotherapy with 7+3 -Continue tumor lysis labs and allopurinol -PICC line placed -Patient will need to stay inpatient for 3-4 weeks to await count recovery and monitor for infection, transfusions, etc. Patient will need D14 bone marrow. Side effects and course explained to the patient and family. -magic mouth wash for mucositis Cytarabine 100 mg/m2 CIV over 24 hours D1-7 Idarubicin 12 mg/m2 IVP D1- Consultation Date/Type/Reason Admit Date/Time Aug 31, 2016 at 00:38 Initial Consult Date 09/02/16 Type of Consultation: Hematology/Oncology Reason for Consultation AML Referring Provider: TAM ROSE 24 HR Interval Summary Free Text/Dictation patient is still c/o mouth ulcers. continues with BAX solution. eating yogurt Exam/Review of Systems Vital Signs Vitals Vital Signs Date Time Temp Pulse Resp B/P Pulse Ox O2 Delivery O2 Flow Rate FiO2 09/16/16 08:47 98.4 73 18 140/67 90 09/14/16 20:15 Room Air Intake and Output 09/15/16 09/15/16 09/16/16 15:00 23:00 07:00 Intake Total 500 ml 1050 ml 1700 ml Output Total 650 ml 1300 ml Balance 500 ml 400 ml 400 ml Exam Constitutional: distress, oriented Psych: depression Head: normocephalic Eyes: nl conjunctiva ENMT: nl external ears & nose, other (+ mucositis) Neck: non-tender, supple Respiratory: clear to auscultation Cardiovascular: nl pulses, regular rate and rhythm Gastrointestinal: soft Musculoskeletal: nl extremities to inspection, nl gait and stance Extremities: normal pulses Results Result Diagram: 09/16/16 0505 09/16/16 0505 Results 24 hrs Laboratory Tests Test 09/15/16 17:15 09/15/16 20:42 09/16/16 02:22 09/16/16 05:05 Bedside Glucose 148 185 127 Alanine Aminotransferase (ALT/SGPT) 22 Albumin 3.3 Albumin/Globulin Ratio 0.71 Alkaline Phosphatase 83 Anion Gap 13 Anisocytosis 1+ Aspartate Amino Transf (AST/SGOT) 19 Band Neutrophils % 3.0 Basophils # 0.0 Basophils % 3.0 H Blood Morphology Comment Blood Urea Nitrogen 12 Calcium Level 8.7 Carbon Dioxide Level 27 Chloride Level 100 Creatinine 0.68 Direct Bilirubin 0.00 Eosinophils # 0.0 Eosinophils % 4.0 Globulin 4.60 H Glucose Level 117 Hematocrit 24.8 L Hemoglobin 8.2 L Hypochromasia 2+ Indirect Bilirubin 0.7 Lactate Dehydrogenase 577 Lymphocytes # 0.8 Lymphocytes % 63.0 H Mean Corpuscular Hemoglobin 27.0 L Mean Corpuscular Hemoglobin Concent 33.2 Mean Corpuscular Volume 81.2 L Mean Platelet Volume 7.3 L Microcytosis 1+ Monocytes # 0.1 L Monocytes % 12.0 H Neutrophils # 0.2 L Neutrophils % 15.0 L Platelet Count 22 #*L Platelet Estimate PLT APPEAR DECREASED Potassium Level 4.1 Red Blood Count 3.05 L Red Cell Distribution Width 18.0 H Sodium Level 136 Total Bilirubin 0.7 Total Protein 7.9 Uric Acid 2.4 L White Blood Count 1.2 #L Test 09/16/16 07:38 09/16/16 12:00 Bedside Glucose 144 139 Medications Medications Current Medications Miscellaneous Information 1 ea NOTE XX ; Start 08/31/16 at 02:00 Glucose (Glutose) 15 gm Q15M PRN PO DECREASED GLUCOSE; Start 08/31/16 at 02:00 Glucose (Glutose) 22.5 gm Q15M PRN PO DECREASED GLUCOSE; Start 08/31/16 at 02:00 Dextrose (D50w Syringe) 25 ml Q15M PRN IV DECREASED GLUCOSE; Start 08/31/16 at 02:00 Dextrose (D50w Syringe) 50 ml Q15M PRN IV DECREASED GLUCOSE; Start 08/31/16 at 02:00 Glucagon (Glucagen) 1 mg Q15M PRN IM DECREASED GLUCOSE; Start 08/31/16 at 02:00 Glucose (Glutose) 15 gm Q15M PRN BUCCAL DECREASED GLUCOSE; Start 08/31/16 at 02: 00 Fluticasone Propionate (Flonase 0.05% Nasal) 2 spray DAILY NASAL Last administered on 09/16/16 08:37; Admin Dose 2 SPRAY; Start 08/31/16 at 09:00 Diagnostic Test (Pha) (Accucheck) 1 ea 02 XX ; Start 09/01/16 at 02:00 Ondansetron HCl (Zofran Inj) 4 mg Q6H PRN IV NAUSEA AND/OR VOMITING; Start 09/01 at 11:30 Acetaminophen (Tylenol Tab) 650 mg Q6H PRN PO PAIN AND OR ELEVATED TEMP Last administered on 09/08/16 21:40; Admin Dose 650 MG; Start 09/01/16 at 11:30 Diphenhydramine HCl (Benadryl) 25 mg Q6H PRN PO ITCHING Last administered on 05:22; Admin Dose 25 MG; Start 09/01/16 at 11:30 Guaifenesin/ Dextromethorphan (Robitussin Dm Liquid Cup) 10 ml Q4H PRN PO COUGH Last administered on 09/16/16 02:22; Admin Dose 10 ML; Start 09/02/16 at 14:00 Allopurinol 300 mg 300 mg DAILY PO Last administered on 09/16/16 08:35; Admin Dose 300 MG; Start 09/04/16 at 16:30 Sodium Chloride (NS) 1,000 ml @ 50 mls/hr Q20H IV Last administered on 09:35; Admin Dose 50 MLS/HR; Start 09/05/16 at 12:00 IV Flush (NS 10 ml) 10 ml PRN PRN IV IV PROTOCOL; Start 09/05/16 at 12:30 Bisacodyl (Dulcolax Supp) 10 mg DAILY PRN [place] CONSTIPATION; Start 09/08/16 at 12 :00 Magnesium Hydroxide (Milk Of Mag) 30 ml DAILY PRN PO CONSTIPATION Last administered on 09/09/16 06:25; Admin Dose 30 ML; Start 09/08/16 at 12:00 Polyethylene Glycol (Miralax) 17 gm DAILY PO Last administered on 09/16/16 08: 35; Admin Dose 17 GM; Start 09/08/16 at 12:00 Docusate Sodium (Colace) 100 mg BID PO Last administered on 09/16/16 08:35; Admin Dose 100 MG; Start 09/08/16 at 21:00 Phenol (Cepastat Lozenge) 1 lozenge Q1H PRN [place] SORE THROAT Last administered on 09/15/16 03:52; Admin Dose 1 LOZENGE; Start 09/08/16 at 12:00 Amlodipine Besylate (Norvasc) 5 mg QHS PO Last administered on 09/15/16 20:41 ; Admin Dose 5 MG; Start 09/11/16 at 21:00 Miscellaneous Medication (Bax Susp) 30 ml QID PO Last administered on 12:27; Admin Dose 30 ML; Start 09/13/16 at 13:00 Insulin Glargine (Lantus) 15 unit QHS SC Last administered on 09/15/16 20:44; Admin Dose 15 UNIT; Start 09/13/16 at 21:00 Nystatin (Nystatin Susp) 5 ml QID PO Last administered on 09/16/16 12:26; Admin Dose 5 ML; Start 09/14/16 at 17:00 MISHA FOREMAN M.D. Sep 16, 2016 13:29
[2016-09-16 20:00] VITALS: BP 137/70; RESP 18
[2016-09-16] MEDS: AMLODIPINE 5 MG TAB PO SCH (20:27)
[2016-09-16] MEDS: INSULIN GLARGINE [LANtus] 3 ML PEN SC SCH (20:37)
[2016-09-17] MEDS: ACCUCHECK AT 2AM (Patients on SS coverage) XX SCH (01:31)
[2016-09-17] MEDS: GUAIFENESIN/DM 5ML CUP PO PRN ×4 (03:41→23:34)
[2016-09-17] MEDS: DOCOSANOL 2 GM CREAM TOP PRN ×2 (03:41→23:26)
[2016-09-17] MEDS: SOD CHLORIDE 0.9% 1,000 ML IV SCH ×2 (04:00→06:51)
[2016-09-17 05:25] LABS: HEMATOCRIT 22.5 % (42.0-52.0); HEMOGLOBIN 7.5 g/dl (14.0-18.0); MEAN CORPUSCULAR HEMOGLOBIN 27.3 pg (29.0-33.0); MEAN CORPUSCULAR HGB CONC 33.4 g/dl (32.0-37.0); MEAN CORPUSCULAR VOLUME 81.7 fl (82.0-101.0); MEAN PLATELET VOLUME 10.5 fl (7.4-10.4); RED BLOOD COUNT 2.76 10^6/ul (4.70-6.10); RED CELL DISTRIBUTION WIDTH 18.4 % (11.5-14.5); UNCORRECTED WBC 1.2 10^3/ul (4.8-10.8); WHITE BLOOD COUNT 1.2 10^3/ul (4.8-10.8)
[2016-09-17 05:40] LABS: ALBUMIN 3.1 g/dl (3.3-4.9); CONDITION 1; LH ANALYZER COMMENTS 1; SUSPECT 1
[2016-09-17 05:41] LABS: PLATELET COUNT 16 10^3/UL (140-440); POTASSIUM 3.9 mmol/L (3.5-5.1); URIC ACID 2.6 mg/dl (3.1-7.9)
[2016-09-17 05:43] LABS: ALBUMIN/GLOBULIN RATIO 0.67; BILIRUBIN,INDIRECT 0.4 mg/dl (0-1.1); BILIRUBIN,TOTAL 0.4 mg/dl (0.2-1.3); CREATININE 0.74 mg/dl (0.61-1.24); TOTAL PROTEIN 7.7 g/dl (6.1-8.1)
[2016-09-17 05:44] LABS: CALCIUM 8.7 mg/dl (8.4-10.2)
[2016-09-17] MEDS: ACCUCHECK XX SCH ×4 (08:43→20:54)
[2016-09-17] MEDS: INSULIN ASPART [NOVOLOG] 3 ML PEN SC SCH ×3 (08:44→17:40)
[2016-09-17] MEDS: DOCUSATE SODIUM 100 MG CAP PO SCH ×2 (08:45→20:17)
[2016-09-17] MEDS: NYSTATIN SUSP 5 ML CUP PO SCH ×4 (08:45→20:17)
[2016-09-17] MEDS: FLUTICASONE 0.05% 16 GM NAS SPRAY NASAL SCH (08:45)
[2016-09-17] MEDS: SUCRALFATE 1 GM TAB PO SCH ×4 (08:45→20:17)
[2016-09-17] MEDS: ALLOPURINOL 300 MG TAB PO SCH (08:45)
[2016-09-17] MEDS: POLYETHYLENE GLYCOL 17 GM PACKET PO SCH (08:46)
[2016-09-17] MEDS: LIDO PO SCH ×4 (08:52→21:00)
[2016-09-17] MEDS: MYLANTA PO SCH ×4 (08:52→21:00)
[2016-09-17] MEDS: DIPHENHYD PO SCH ×4 (08:52→21:00)
[2016-09-17 09:10] VITALS: BP 145/78; RESP 20
[2016-09-17] MEDS: ONDANSETRON 4 MG INJ IV PRN (09:39)
--- NOTE | 2016-09-17 10:10 | PN ---
Date/Time of Note Date/Time of Note DATE: 09/17/16 TIME: 10:07 Assessment/Plan VTE Prophylaxis VTE Prophylaxis Intervention: SCD's Lines/Catheters IV Catheter Type (from Nrsg): PICC Line Central line still needed: Yes (for IV access ) Urinary Cath still in place: No Assessment/Plan Assessment/Plan 71 yo male with: 1. 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 2. Diabetes mellitus, with associated neuropathy manifest by numbness in both feet. Previous clinical suspicion for diabetic gastroparesis. He has moderate hyperglycemia this time, for reasons unclear. No solis source of infection identified, and he has no fever. BG stable on current dosing of Lantus at 15 units qhs and continue SSI. Zofran as needed for Nausea likely chemo related at this point 3. Chronic benign positional vertigo. Continue Meclizine PRN 4. Gastroesophageal reflux disease. Continue Protonix 6. URI with cough and sore throat: CXR stable on admission, symptomatic treatment. 7. Hypertension: on Norvasc. 8. Oral mucosa irritation, cold sore and odynophagia: Continue Abreva and mouth wash, Nystatin. improving Prophylaxis. Sequential compression devices to lower extremity for DVT prevention, PPI for GI ppx DISPOSITION: S/p induction chemo, following counts, still neutropenic/ pancytopenic requiring close monitoring and blood product transfusion as needed , ANC pending today. Subjective 24 Hr Interval Summary Free Text/Dictation Patient with less odynophagia but N/V x1 he reports Afebrile and still pancytopenic likely to require blood product today or tomorrow Exam/Review of Systems Vital Signs Vitals Vital Signs Date Time Temp Pulse Resp B/P Pulse Ox O2 Delivery O2 Flow Rate FiO2 09/17/16 09:10 97.9 78 20 145/78 99 09/14/16 20:15 Room Air Intake and Output 09/16/16 09/16/16 09/17/16 15:00 23:00 07:00 Intake Total 1520 ml 1020 ml Output Total 1100 ml 1300 ml Balance 420 ml -280 ml Exam Constitutional: alert, oriented, well developed Respiratory: clear to auscultation, normal air movement Cardiovascular: nl pulses, regular rate and rhythm Gastrointestinal: non-tender, soft Musculoskeletal: nl extremities to inspection Extremities: normal pulses, other (no edmea, clubbing or cyanosis ) 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, nl mental status, nl speech, other (mild generalised weakness ) Results Result Diagram: 09/17/165 09/17/16 042 Results 24 hrs Laboratory Tests Test 09/16/16 12:00 09/16/16 17:01 09/16/16 20:35 09/17/16 04:25 Bedside Glucose 139 189 211 Alanine Aminotransferase (ALT/SGPT) 21 Albumin 3.1 L Albumin/Globulin Ratio 0.67 Alkaline Phosphatase 74 Anion Gap 13 Aspartate Amino Transf (AST/SGOT) 15 Blood Morphology Comment Blood Urea Nitrogen 13 Calcium Level 8.7 Carbon Dioxide Level 27 Chloride Level 103 Creatinine 0.74 Direct Bilirubin 0.00 Globulin 4.60 H Glucose Level 102 Hematocrit 22.5 L Hemoglobin 7.5 L Indirect Bilirubin 0.4 Lactate Dehydrogenase 530 Magnesium Level 2.0 Mean Corpuscular Hemoglobin 27.3 L Mean Corpuscular Hemoglobin Concent 33.4 Mean Corpuscular Volume 81.7 L Mean Platelet Volume 10.5 #H Platelet Count 16 #*L Potassium Level 3.9 Red Blood Count 2.76 L Red Cell Distribution Width 18.4 H Sodium Level 139 Total Bilirubin 0.4 Total Protein 7.7 Uric Acid 2.6 L White Blood Count 1.2 L Test 09/17/16 07:58 Bedside Glucose 139 Medications Medications Current Medications Miscellaneous Information 1 ea NOTE XX ; Start 08/31/16 at 02:00 Glucose (Glutose) 15 gm Q15M PRN PO DECREASED GLUCOSE; Start 08/31/16 at 02:00 Glucose (Glutose) 22.5 gm Q15M PRN PO DECREASED GLUCOSE; Start 08/31/16 at 02:00 Dextrose (D50w Syringe) 25 ml Q15M PRN IV DECREASED GLUCOSE; Start 08/31/16 at 02:00 Dextrose (D50w Syringe) 50 ml Q15M PRN IV DECREASED GLUCOSE; Start 08/31/16 at 02:00 Glucagon (Glucagen) 1 mg Q15M PRN IM DECREASED GLUCOSE; Start 08/31/16 at 02:00 Glucose (Glutose) 15 gm Q15M PRN BUCCAL DECREASED GLUCOSE; Start 08/31/16 at 02: 00 Fluticasone Propionate (Flonase 0.05% Nasal) 2 spray DAILY NASAL Last administered on 09/17/16 08:45; Admin Dose 2 SPRAY; Start 08/31/16 at 09:00 Diagnostic Test (Pha) (Accucheck) 1 ea 02 XX ; Start 09/01/16 at 02:00 Ondansetron HCl (Zofran Inj) 4 mg Q6H PRN IV NAUSEA AND/OR VOMITING Last administered on 09/17/16 09:39; Admin Dose 4 MG; Start 09/01/16 at 11:30 Acetaminophen (Tylenol Tab) 650 mg Q6H PRN PO PAIN AND OR ELEVATED TEMP Last administered on 09/08/16 21:40; Admin Dose 650 MG; Start 09/01/16 at 11:30 Diphenhydramine HCl (Benadryl) 25 mg Q6H PRN PO ITCHING Last administered on 05:22; Admin Dose 25 MG; Start 09/01/16 at 11:30 Guaifenesin/ Dextromethorphan (Robitussin Dm Liquid Cup) 10 ml Q4H PRN PO COUGH Last administered on 09/17/16 03:41; Admin Dose 10 ML; Start 09/02/16 at 14:00 Allopurinol 300 mg 300 mg DAILY PO Last administered on 09/17/16 08:45; Admin Dose 300 MG; Start 09/04/16 at 16:30 Sodium Chloride (NS) 1,000 ml @ 50 mls/hr Q20H IV Last administered on 06:51; Admin Dose 50 MLS/HR; Start 09/05/16 at 12:00 IV Flush (NS 10 ml) 10 ml PRN PRN IV IV PROTOCOL; Start 09/05/16 at 12:30 Bisacodyl (Dulcolax Supp) 10 mg DAILY PRN [place] CONSTIPATION; Start 09/08/16 at 12 :00 Magnesium Hydroxide (Milk Of Mag) 30 ml DAILY PRN PO CONSTIPATION Last administered on 09/09/16 06:25; Admin Dose 30 ML; Start 09/08/16 at 12:00 Polyethylene Glycol (Miralax) 17 gm DAILY PO Last administered on 09/17/16 08: 46; Admin Dose 17 GM; Start 09/08/16 at 12:00 Docusate Sodium (Colace) 100 mg BID PO Last administered on 09/17/16 08:45; Admin Dose 100 MG; Start 09/08/16 at 21:00 Phenol (Cepastat Lozenge) 1 lozenge Q1H PRN [place] SORE THROAT Last administered on 09/15/16 03:52; Admin Dose 1 LOZENGE; Start 09/08/16 at 12:00 Amlodipine Besylate (Norvasc) 5 mg QHS PO Last administered on 09/16/16 20:27 ; Admin Dose 5 MG; Start 09/11/16 at 21:00 Miscellaneous Medication (Bax Susp) 30 ml QID PO Last administered on 08:52; Admin Dose 30 ML; Start 09/13/16 at 13:00 Insulin Glargine (Lantus) 15 unit QHS SC Last administered on 09/16/16 20:37; Admin Dose 15 UNIT; Start 09/13/16 at 21:00 Nystatin (Nystatin Susp) 5 ml QID PO Last administered on 09/17/16 08:45; Admin Dose 5 ML; Start 09/14/16 at 17:00 TAM ROSE Sep 17, 2016 10:10
[2016-09-17 12:01] LABS: ANISOCYTOSIS 1+; BASOPHIL # 0.1 10^3/ul (0.0-0.1); EOSINOPHILS # 0.1 10^3/ul (0.0-0.5); LYMPHOCYTES # 0.7 10^3/ul (0.8-2.9); MONOCYTE # 0.2 10^3/ul (0.3-0.9); NEUTROPHIL # 0.1 10^3/ul (1.6-7.5)
[2016-09-17 12:02] LABS: HYPOCHROMASIA 1+; MICROCYTOSIS 1+; PLATELET ESTIMATE PLT APPEAR DECREASED
--- NOTE | 2016-09-17 13:03 | CONS ---
Date/Time of Note Date/Time of Note DATE: 09/17/16 TIME: 13:02 Assessment/Plan Assessment/Plan Chief Complaint/Hosp Course 71 yo with CMML who is currently off therapy admitted for symptomatic anemia and thrombocytopenia. 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 Pt has been started on 7+3 and tolerated chemotherapy well thus far. Problems: Additional Assessment/Plan -s/p induction chemotherapy 7+3 . today is day 12 -s/p 1 units of platelets 09/02/16 and 09/10/16. CT head negative 09/02/16. Transfuse plt < 10, Hgb < 8. Patient remains transfusion dependant. Patient to receive 1 unit pRBCs today for Hgb 7.5. -Flow showed 30% blasts on peripheral blood consistent with AML with monocytic component. s/p BMBx 09/04/16, revealing AML (acute myelomonocytic leukemia, M4) , CEBPA mutation detected, negative for NPM1 and negative for FLT3 mutation -Discussed with Dr. Gallegos, her primary oncologist, who is ok with induction chemotherapy. -Discussed with patient's daughter Tawny ([phone]). Patient and family agreeable to induction chemotherapy with 7+3 -Continue tumor lysis labs and allopurinol -PICC line placed -Patient will need to stay inpatient for 3-4 weeks to await count recovery and monitor for infection, transfusions, etc. Patient will need D14 bone marrow - ordered for 09/19/16 by IR, no cytogenetics needed. Side effects and course explained to the patient and family. -magic mouth wash for mucositis Cytarabine 100 mg/m2 CIV over 24 hours D1-7 Idarubicin 12 mg/m2 IVP D1- Problems: Consultation Date/Type/Reason Admit Date/Time Aug 31, 2016 at 00:38 Initial Consult Date 09/02/16 Type of Consultation: Hematology/Oncology Referring Provider: TAM ROSE 24 HR Interval Summary Free Text/Dictation Patient had one episode of emesis this morning, improved with zofran. Has mouth sores, using BAX solution. No fevers. Will receive 1 unit pRBCs today for Hgb 7.5. Exam/Review of Systems Vital Signs Vitals Vital Signs Date Time Temp Pulse Resp B/P Pulse Ox O2 Delivery O2 Flow Rate FiO2 09/17/16 09:10 97.9 78 20 145/78 99 09/14/16 20:15 Room Air Intake and Output 09/16/16 09/16/16 09/17/16 15:00 23:00 07:00 Intake Total 1520 ml 1020 ml Output Total 1100 ml 1300 ml Balance 420 ml -280 ml Exam Constitutional: alert, oriented Head: atraumatic, normocephalic Eyes: nl conjunctiva ENMT: nl external ears & nose Neck: non-tender, supple Respiratory: clear to auscultation, normal air movement Cardiovascular: nl pulses, regular rate and rhythm Gastrointestinal: soft Musculoskeletal: nl extremities to inspection, nl gait and stance Extremities: normal pulses Neurological: MACHINIST 2ND SHIFT II-XII intact Results Result Diagram: 09/17/16 0425 09/17/16 0425 Results 24 hrs Laboratory Tests Test 09/16/16 17:01 09/16/16 20:35 09/17/16 04:25 09/17/16 07:58 Bedside Glucose 189 211 139 Alanine Aminotransferase (ALT/SGPT) 21 Albumin 3.1 L Albumin/Globulin Ratio 0.67 Alkaline Phosphatase 74 Anion Gap 13 Anisocytosis 1+ Aspartate Amino Transf (AST/SGOT) 15 Band Neutrophils % 3.0 Basophils # 0.1 Basophils % 6.0 H Blast Cells % 1.0 H Blastocytes # 0.0 Blood Morphology Comment Blood Urea Nitrogen 13 Calcium Level 8.7 Carbon Dioxide Level 27 Chloride Level 103 Creatinine 0.74 Direct Bilirubin 0.00 Eosinophils # 0.1 Eosinophils % 6.0 Globulin 4.60 H Glucose Level 102 Hematocrit 22.5 L Hemoglobin 7.5 L Hypochromasia 1+ Indirect Bilirubin 0.4 Lactate Dehydrogenase 530 Lymphocytes # 0.7 L Lymphocytes % 58.0 H Magnesium Level 2.0 Mean Corpuscular Hemoglobin 27.3 L Mean Corpuscular Hemoglobin Concent 33.4 Mean Corpuscular Volume 81.7 L Mean Platelet Volume 10.5 #H Microcytosis 1+ Monocytes # 0.2 L Monocytes % 14.0 H Neutrophils # 0.1 L Neutrophils % 12.0 L Platelet Count 16 #*L Platelet Estimate PLT APPEAR DECREASED Potassium Level 3.9 Red Blood Count 2.76 L Red Cell Distribution Width 18.4 H Sodium Level 139 Total Bilirubin 0.4 Total Protein 7.7 Uric Acid 2.6 L White Blood Count 1.2 L Test 09/17/16 11:57 Bedside Glucose 129 Medications Medications Current Medications Miscellaneous Information 1 ea NOTE XX ; Start 08/31/16 at 02:00 Glucose (Glutose) 15 gm Q15M PRN PO DECREASED GLUCOSE; Start 08/31/16 at 02:00 Glucose (Glutose) 22.5 gm Q15M PRN PO DECREASED GLUCOSE; Start 08/31/16 at 02:00 Dextrose (D50w Syringe) 25 ml Q15M PRN IV DECREASED GLUCOSE; Start 08/31/16 at 02:00 Dextrose (D50w Syringe) 50 ml Q15M PRN IV DECREASED GLUCOSE; Start 08/31/16 at 02:00 Glucagon (Glucagen) 1 mg Q15M PRN IM DECREASED GLUCOSE; Start 08/31/16 at 02:00 Glucose (Glutose) 15 gm Q15M PRN BUCCAL DECREASED GLUCOSE; Start 08/31/16 at 02: 00 Fluticasone Propionate (Flonase 0.05% Nasal) 2 spray DAILY NASAL Last administered on 09/17/16 08:45; Admin Dose 2 SPRAY; Start 08/31/16 at 09:00 Diagnostic Test (Pha) (Accucheck) 1 ea 02 XX ; Start 09/01/16 at 02:00 Ondansetron HCl (Zofran Inj) 4 mg Q6H PRN IV NAUSEA AND/OR VOMITING Last administered on 09/17/16 09:39; Admin Dose 4 MG; Start 09/01/16 at 11:30 Acetaminophen (Tylenol Tab) 650 mg Q6H PRN PO PAIN AND OR ELEVATED TEMP Last administered on 09/08/16 21:40; Admin Dose 650 MG; Start 09/01/16 at 11:30 Diphenhydramine HCl (Benadryl) 25 mg Q6H PRN PO ITCHING Last administered on 05:22; Admin Dose 25 MG; Start 09/01/16 at 11:30 Guaifenesin/ Dextromethorphan (Robitussin Dm Liquid Cup) 10 ml Q4H PRN PO COUGH Last administered on 09/17/16 12:55; Admin Dose 10 ML; Start 09/02/16 at 14:00 Allopurinol 300 mg 300 mg DAILY PO Last administered on 09/17/16 08:45; Admin Dose 300 MG; Start 09/04/16 at 16:30 Sodium Chloride (NS) 1,000 ml @ 50 mls/hr Q20H IV Last administered on 06:51; Admin Dose 50 MLS/HR; Start 09/05/16 at 12:00 IV Flush (NS 10 ml) 10 ml PRN PRN IV IV PROTOCOL; Start 09/05/16 at 12:30 Bisacodyl (Dulcolax Supp) 10 mg DAILY PRN [place] CONSTIPATION; Start 09/08/16 at 12 :00 Magnesium Hydroxide (Milk Of Mag) 30 ml DAILY PRN PO CONSTIPATION Last administered on 09/09/16 06:25; Admin Dose 30 ML; Start 09/08/16 at 12:00 Polyethylene Glycol (Miralax) 17 gm DAILY PO Last administered on 09/17/16 08: 46; Admin Dose 17 GM; Start 09/08/16 at 12:00 Docusate Sodium (Colace) 100 mg BID PO Last administered on 09/17/16 08:45; Admin Dose 100 MG; Start 09/08/16 at 21:00 Phenol (Cepastat Lozenge) 1 lozenge Q1H PRN [place] SORE THROAT Last administered on 09/15/16 03:52; Admin Dose 1 LOZENGE; Start 09/08/16 at 12:00 Amlodipine Besylate (Norvasc) 5 mg QHS PO Last administered on 09/16/16 20:27 ; Admin Dose 5 MG; Start 09/11/16 at 21:00 Miscellaneous Medication (Bax Susp) 30 ml QID PO Last administered on 12:49; Admin Dose 30 ML; Start 09/13/16 at 13:00 Insulin Glargine (Lantus) 15 unit QHS SC Last administered on 09/16/16 20:37; Admin Dose 15 UNIT; Start 09/13/16 at 21:00 Nystatin (Nystatin Susp) 5 ml QID PO Last administered on 09/17/16 12:49; Admin Dose 5 ML; Start 09/14/16 at 17:00 ROMA BUNDY MD Sep 17, 2016 13:02
[2016-09-17 17:14] VITALS: BP 147/73; RESP 18
[2016-09-17 17:47] VITALS: BP 147/73; PULSE 83; RESP 18
[2016-09-17 18:00] VITALS: BP 148/65; PULSE 84; RESP 20
[2016-09-17 19:00] VITALS: BP_SYST 132; BP_SYST 169; BP_DIAS 68; BP_DIAS 77; RESP 18
[2016-09-17] MEDS: CEPASTAT LOZENGE MT PRN (20:16)
[2016-09-17] MEDS: ACETAMINOPHEN 325 MG TAB PO PRN (20:16)
[2016-09-17] MEDS: AMLODIPINE 5 MG TAB PO SCH (20:17)
[2016-09-17] MEDS: INSULIN GLARGINE [LANtus] 3 ML PEN SC SCH (20:26)
[2016-09-18] MEDS: ACCUCHECK AT 2AM (Patients on SS coverage) XX SCH (02:00)
[2016-09-18] MEDS: GUAIFENESIN/DM 5ML CUP PO PRN (04:30)
[2016-09-18] MEDS: SOD CHLORIDE 0.9% 1,000 ML IV SCH ×2 (04:30→20:21)
[2016-09-18] MEDS: MYLANTA PO SCH ×4 (05:12→20:22)
[2016-09-18] MEDS: DIPHENHYD PO SCH ×4 (05:12→20:22)
[2016-09-18] MEDS: LIDO PO SCH ×4 (05:12→20:22)
[2016-09-18 05:34] LABS: HEMATOCRIT 23.2 % (42.0-52.0); HEMOGLOBIN 7.9 g/dl (14.0-18.0); MEAN CORPUSCULAR HEMOGLOBIN 27.8 pg (29.0-33.0); MEAN CORPUSCULAR VOLUME 81.7 fl (82.0-101.0); MEAN PLATELET VOLUME 7.2 fl (7.4-10.4); RED BLOOD COUNT 2.85 10^6/ul (4.70-6.10); RED CELL DISTRIBUTION WIDTH 16.6 % (11.5-14.5)
[2016-09-18 05:58] LABS: POTASSIUM 4.2 mmol/L (3.5-5.1)
[2016-09-18 06:00] LABS: ALBUMIN/GLOBULIN RATIO 0.66; BILIRUBIN,INDIRECT 0.6 mg/dl (0-1.1); BILIRUBIN,TOTAL 0.6 mg/dl (0.2-1.3); CREATININE 0.65 mg/dl (0.61-1.24); TOTAL PROTEIN 7.5 g/dl (6.1-8.1)
[2016-09-18 06:01] LABS: CALCIUM 8.3 mg/dl (8.4-10.2)
[2016-09-18 06:26] LABS: CONDITION 1; LH ANALYZER COMMENTS 1; SUSPECT 1
[2016-09-18 06:29] LABS: PLATELET COUNT 8 10^3/UL (140-440)
[2016-09-18] MEDS: ACCUCHECK XX SCH ×4 (07:50→20:35)
[2016-09-18] MEDS: NYSTATIN SUSP 5 ML CUP PO SCH ×4 (09:06→20:22)
[2016-09-18] MEDS: DOCUSATE SODIUM 100 MG CAP PO SCH ×2 (09:06→20:22)
[2016-09-18] MEDS: ALLOPURINOL 300 MG TAB PO SCH (09:06)
[2016-09-18] MEDS: SUCRALFATE 1 GM TAB PO SCH ×4 (09:06→20:22)
[2016-09-18] MEDS: FLUTICASONE 0.05% 16 GM NAS SPRAY NASAL SCH (09:07)
[2016-09-18] MEDS: POLYETHYLENE GLYCOL 17 GM PACKET PO SCH (09:10)
[2016-09-18 09:17] VITALS: BP 124/58; RESP 20
[2016-09-18] MEDS: INSULIN ASPART [NOVOLOG] 3 ML PEN SC SCH ×3 (09:17→18:05)
--- NOTE | 2016-09-18 09:45 | PN ---
Date/Time of Note Date/Time of Note DATE: 09/18/16 TIME: 09:36 Assessment/Plan VTE Prophylaxis VTE Prophylaxis Intervention: SCD's Lines/Catheters IV Catheter Type (from Nrsg): PICC Line Central line still needed: Yes (for IV access) Urinary Cath still in place: No Assessment/Plan Assessment/Plan 71 yo male with: 1. 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 2. Diabetes mellitus, with associated neuropathy manifest by numbness in both feet. Previous clinical suspicion for diabetic gastroparesis. He has moderate hyperglycemia this time, for reasons unclear. No solis source of infection identified, and he has no fever. BG stable on current dosing of Lantus at 15 units qhs and continue SSI. Zofran as needed for Nausea likely chemo related at this point 3. Chronic benign positional vertigo. Continue Meclizine PRN 4. Gastroesophageal reflux disease. Continue Protonix 6. URI with cough and sore throat: CXR stable on admission, symptomatic treatment. 7. Hypertension: on Norvasc. 8. Oral mucosa irritation, cold sore and odynophagia: Continue Abreva and mouth wash, Nystatin. improving Prophylaxis. Sequential compression devices to lower extremity for DVT prevention, PPI for GI ppx DISPOSITION: S/p induction chemo, following counts, still neutropenic/ pancytopenic requiring close monitoring and blood product transfusion as needed. OOB to chair at least 3x/day Subjective 24 Hr Interval Summary Free Text/Dictation Patient remains hemodynamically stable but transfusion dependent and still awaiting significant BM recovery Sore throat better No N/V and tolerating po well today Exam/Review of Systems Vital Signs Vitals Vital Signs Date Time Temp Pulse Resp B/P Pulse Ox O2 Delivery O2 Flow Rate FiO2 09/18/16 09:17 99.1 86 20 124/58 100 09/17/16 18:00 Room Air Intake and Output 09/17/16 09/17/16 09/18/16 15:00 23:00 07:00 Intake Total 1580 ml 1800 ml Output Total 2000 ml 1800 ml Balance -420 ml 0 ml Exam Constitutional: alert, frail, oriented Respiratory: clear to auscultation, normal air movement Cardiovascular: nl pulses, regular rate and rhythm Gastrointestinal: non-tender, soft Musculoskeletal: nl extremities to inspection Extremities: normal pulses, other (no edema, clubbing or cyanosis ) 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00 Eosinophils # Eosinophils % Globulin 4.50 H Glucose Level 130 Hematocrit 23.2 L Hemoglobin 7.9 L Indirect Bilirubin 0.6 Lactate Dehydrogenase 634 H Lymphocytes # Lymphocytes % Mean Corpuscular Hemoglobin 27.8 L Mean Corpuscular Hemoglobin Concent 34.0 Mean Corpuscular Volume 81.7 L Mean Platelet Volume 7.2 #L Monocytes # Neutrophils # Neutrophils % Nucleated Red Blood Cells # Nucleated Red Blood Cells % Platelet Count 8 #*L Potassium Level 4.2 Red Blood Count 2.85 L Red Cell Distribution Width 16.6 H Sodium Level 134 L Total Bilirubin 0.6 Total Protein 7.5 Uric Acid 2.0 L White Blood Count 2.0 #L Bedside Glucose 153 Medications Medications Current Medications Miscellaneous Information 1 ea NOTE XX ; Start 08/31/16 at 02:00 Glucose (Glutose) 15 gm Q15M PRN PO DECREASED GLUCOSE; Start 08/31/16 at 02:00 Glucose (Glutose) 22.5 gm Q15M PRN PO DECREASED GLUCOSE; Start 08/31/16 at 02:00 Dextrose (D50w Syringe) 25 ml Q15M PRN IV DECREASED GLUCOSE; Start 08/31/16 at 02:00 Dextrose (D50w Syringe) 50 ml Q15M PRN IV DECREASED GLUCOSE; Start 08/31/16 at 02:00 Glucagon (Glucagen) 1 mg Q15M PRN IM DECREASED GLUCOSE; Start 08/31/16 at 02:00 Glucose (Glutose) 15 gm Q15M PRN BUCCAL DECREASED GLUCOSE; Start 08/31/16 at 02: 00 Fluticasone Propionate (Flonase 0.05% Nasal) 2 spray DAILY NASAL Last administered on 09/18/16 09:07; Admin Dose 2 SPRAY; Start 08/31/16 at 09:00 Diagnostic Test (Pha) (Accucheck) 1 ea 02 XX ; Start 09/01/16 at 02:00 Ondansetron HCl (Zofran Inj) 4 mg Q6H PRN IV NAUSEA AND/OR VOMITING Last administered on 09/17/16 09:39; Admin Dose 4 MG; Start 09/01/16 at 11:30 Acetaminophen (Tylenol Tab) 650 mg Q6H PRN PO PAIN AND OR ELEVATED TEMP Last administered on 09/17/16 20:16; Admin Dose 650 MG; Start 09/01/16 at 11:30 Diphenhydramine HCl (Benadryl) 25 mg Q6H PRN PO ITCHING Last administered on 05:22; Admin Dose 25 MG; Start 09/01/16 at 11:30 Guaifenesin/ Dextromethorphan (Robitussin Dm Liquid Cup) 10 ml Q4H PRN PO COUGH Last administered on 09/18/16 04:30; Admin Dose 10 ML; Start 09/02/16 at 14:00 Allopurinol 300 mg 300 mg DAILY PO Last administered on 09/18/16 09:06; Admin Dose 300 MG; Start 09/04/16 at 16:30 Sodium Chloride (NS) 1,000 ml @ 50 mls/hr Q20H IV Last administered on 04:30; Admin Dose 50 MLS/HR; Start 09/05/16 at 12:00 IV Flush (NS 10 ml) 10 ml PRN PRN IV IV PROTOCOL; Start 09/05/16 at 12:30 Bisacodyl (Dulcolax Supp) 10 mg DAILY PRN [place] CONSTIPATION; Start 09/08/16 at 12 :00 Magnesium Hydroxide (Milk Of Mag) 30 ml DAILY PRN PO CONSTIPATION Last administered on 09/09/16 06:25; Admin Dose 30 ML; Start 09/08/16 at 12:00 Polyethylene Glycol (Miralax) 17 gm DAILY PO Last administered on 09/18/16 09: 10; Admin Dose 17 GM; Start 09/08/16 at 12:00 Docusate Sodium (Colace) 100 mg BID PO Last administered on 09/18/16 09:06; Admin Dose 100 MG; Start 09/08/16 at 21:00 Phenol (Cepastat Lozenge) 1 lozenge Q1H PRN [place] SORE THROAT Last administered on 09/17/16 20:16; Admin Dose 1 LOZENGE; Start 09/08/16 at 12:00 Amlodipine Besylate (Norvasc) 5 mg QHS PO Last administered on 09/17/16 20:17 ; Admin Dose 5 MG; Start 09/11/16 at 21:00 Miscellaneous Medication (Bax Susp) 30 ml QID PO Last administered on 05:12; Admin Dose 30 ML; Start 09/13/16 at 13:00 Insulin Glargine (Lantus) 15 unit QHS SC Last administered on 09/17/16 20:26; Admin Dose 15 UNIT; Start 09/13/16 at 21:00 Nystatin (Nystatin Susp) 5 ml QID PO Last administered on 09/18/16 09:06; Admin Dose 5 ML; Start 09/14/16 at 17:00 TAM ROSE Sep 18, 2016 09:45
--- NOTE | 2016-09-18 09:47 | CONS ---
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 Pt has been started on 7+3 and tolerated chemotherapy well thus far. Problems: Additional Assessment/Plan -s/p induction chemotherapy 7+3, today is day 13 -s/p 1 units of platelets 09/02/16 and 09/10/16. CT head negative 09/02/16. Transfuse plt < 10, Hgb < 8. Patient remains transfusion dependant. Patient to receive 1 unit platelets today for platelets of 8. -Flow showed 30% blasts on peripheral blood consistent with AML with monocytic component. s/p BMBx 09/04/16, revealing AML (acute myelomonocytic leukemia, M4) , CEBPA mutation detected, negative for NPM1 and negative for FLT3 mutation. 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 Deletion of 5q, monosomy 7 and complexity of the karotype are associated with poor risk. Given complex cytogenetics, patient may be referred for transplant evaluation. Will discuss with Dr. Gallegos. -Discussed with Dr. Gallegos, her primary oncologist, who is ok with induction chemotherapy. -Discussed with patient's daughter Tawny ([phone]). Patient and family agreeable to induction chemotherapy with 7+3 -Continue tumor lysis labs and allopurinol -PICC line placed -Patient will need to stay inpatient for 3-4 weeks to await count recovery and monitor for infection, transfusions, etc. Patient will need D14 bone marrow tomorrow 09/19/16, will perform at bedside. Side effects and course explained to the patient and family. -magic mouth wash for mucositis Cytarabine 100 mg/m2 CIV over 24 hours D1-7 Idarubicin 12 mg/m2 IVP D1- Problems: Consultation Date/Type/Reason Admit Date/Time Aug 31, 2016 at 00:38 Initial Consult Date 09/02/16 Type of Consultation: Hematology/Oncology Referring Provider: TAM ROSE 24 HR Interval Summary Free Text/Dictation Patient denies nausea or vomiting today. Does not stomach upset and complains of burning in his mouth. Exam/Review of Systems Vital Signs Vitals Vital Signs Date Time Temp Pulse Resp B/P Pulse Ox O2 Delivery O2 Flow Rate FiO2 09/18/16 09:17 99.1 86 20 124/58 100 09/17/16 18:00 Room Air Intake and Output 09/17/16 09/17/16 09/18/16 15:00 23:00 07:00 Intake Total 1580 ml 1800 ml Output Total 2000 ml 1800 ml Balance -420 ml 0 ml Exam Constitutional: alert, oriented Head: atraumatic, normocephalic Eyes: nl conjunctiva ENMT: nl external ears & nose Neck: non-tender, supple Respiratory: clear to auscultation, normal air movement Cardiovascular: nl pulses, regular rate and rhythm Gastrointestinal: soft Musculoskeletal: nl extremities to inspection, nl gait and stance Extremities: normal pulses 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 Results Result Diagram: 09/18/16 0450 09/18/16 0450 Results 24 hrs Laboratory Tests Test 09/17/16 11:57 09/17/16 17:33 09/17/16 20:20 09/18/16 02:20 Bedside Glucose 129 200 196 149 Test 09/18/16 04:50 09/18/16 08:00 Alanine Aminotransferase (ALT/SGPT) 18 Albumin 3.0 L Albumin/Globulin Ratio 0.66 Alkaline Phosphatase 74 Anion Gap 11 Aspartate Amino Transf (AST/SGOT) 17 Basophils # Basophils % Blood Morphology Comment Blood Urea Nitrogen 17 Calcium Level 8.3 L Carbon Dioxide Level 27 Chloride Level 100 Creatinine 0.65 Direct Bilirubin 0.00 Eosinophils # Eosinophils % Globulin 4.50 H Glucose Level 130 Hematocrit 23.2 L Hemoglobin 7.9 L Indirect Bilirubin 0.6 Lactate Dehydrogenase 634 H Lymphocytes # Lymphocytes % Mean Corpuscular Hemoglobin 27.8 L Mean Corpuscular Hemoglobin Concent 34.0 Mean Corpuscular Volume 81.7 L Mean Platelet Volume 7.2 #L Monocytes # Neutrophils # Neutrophils % Nucleated Red Blood Cells # Nucleated Red Blood Cells % Platelet Count 8 #*L Potassium Level 4.2 Red Blood Count 2.85 L Red Cell Distribution Width 16.6 H Sodium Level 134 L Total Bilirubin 0.6 Total Protein 7.5 Uric Acid 2.0 L White Blood Count 2.0 #L Bedside Glucose 153 Medications Medications Current Medications Miscellaneous Information 1 ea NOTE XX ; Start 08/31/16 at 02:00 Glucose (Glutose) 15 gm Q15M PRN PO DECREASED GLUCOSE; Start 08/31/16 at 02:00 Glucose (Glutose) 22.5 gm Q15M PRN PO DECREASED GLUCOSE; Start 08/31/16 at 02:00 Dextrose (D50w Syringe) 25 ml Q15M PRN IV DECREASED GLUCOSE; Start 08/31/16 at 02:00 Dextrose (D50w Syringe) 50 ml Q15M PRN IV DECREASED GLUCOSE; Start 08/31/16 at 02:00 Glucagon (Glucagen) 1 mg Q15M PRN IM DECREASED GLUCOSE; Start 08/31/16 at 02:00 Glucose (Glutose) 15 gm Q15M PRN BUCCAL DECREASED GLUCOSE; Start 08/31/16 at 02: 00 Fluticasone Propionate (Flonase 0.05% Nasal) 2 spray DAILY NASAL Last administered on 09/18/16 09:07; Admin Dose 2 SPRAY; Start 08/31/16 at 09:00 Diagnostic Test (Pha) (Accucheck) 1 ea 02 XX ; Start 09/01/16 at 02:00 Ondansetron HCl (Zofran Inj) 4 mg Q6H PRN IV NAUSEA AND/OR VOMITING Last administered on 09/17/16 09:39; Admin Dose 4 MG; Start 09/01/16 at 11:30 Acetaminophen (Tylenol Tab) 650 mg Q6H PRN PO PAIN AND OR ELEVATED TEMP Last administered on 09/17/16 20:16; Admin Dose 650 MG; Start 09/01/16 at 11:30 Diphenhydramine HCl (Benadryl) 25 mg Q6H PRN PO ITCHING Last administered on 05:22; Admin Dose 25 MG; Start 09/01/16 at 11:30 Guaifenesin/ Dextromethorphan (Robitussin Dm Liquid Cup) 10 ml Q4H PRN PO COUGH Last administered on 09/18/16 04:30; Admin Dose 10 ML; Start 09/02/16 at 14:00 Allopurinol 300 mg 300 mg DAILY PO Last administered on 09/18/16 09:06; Admin Dose 300 MG; Start 09/04/16 at 16:30 Sodium Chloride (NS) 1,000 ml @ 50 mls/hr Q20H IV Last administered on 04:30; Admin Dose 50 MLS/HR; Start 09/05/16 at 12:00 IV Flush (NS 10 ml) 10 ml PRN PRN IV IV PROTOCOL; Start 09/05/16 at 12:30 Bisacodyl (Dulcolax Supp) 10 mg DAILY PRN [place] CONSTIPATION; Start 09/08/16 at 12 :00 Magnesium Hydroxide (Milk Of Mag) 30 ml DAILY PRN PO CONSTIPATION Last administered on 09/09/16 06:25; Admin Dose 30 ML; Start 09/08/16 at 12:00 Polyethylene Glycol (Miralax) 17 gm DAILY PO Last administered on 09/18/16 09: 10; Admin Dose 17 GM; Start 09/08/16 at 12:00 Docusate Sodium (Colace) 100 mg BID PO Last administered on 09/18/16 09:06; Admin Dose 100 MG; Start 09/08/16 at 21:00 Phenol (Cepastat Lozenge) 1 lozenge Q1H PRN [place] SORE THROAT Last administered on 09/17/16 20:16; Admin Dose 1 LOZENGE; Start 09/08/16 at 12:00 Amlodipine Besylate (Norvasc) 5 mg QHS PO Last administered on 09/17/16 20:17 ; Admin Dose 5 MG; Start 09/11/16 at 21:00 Miscellaneous Medication (Bax Susp) 30 ml QID PO Last administered on 05:12; Admin Dose 30 ML; Start 09/13/16 at 13:00 Insulin Glargine (Lantus) 15 unit QHS SC Last administered on 09/17/16 20:26; Admin Dose 15 UNIT; Start 09/13/16 at 21:00 Nystatin (Nystatin Susp) 5 ml QID PO Last administered on 09/18/16 09:06; Admin Dose 5 ML; Start 09/14/16 at 17:00 Lidocaine (Xylocaine 1% (Mpf)) 30 ml ONCE PRN INJ bone marrow biopsy local anest ; Start 09/18/16 at 10:00; Status UNV Lidocaine (Xylocaine 1% (Mdv) 20 ml) 20 ml ONCE INJ ; Start 09/18/16 at 10:00; Stop 09/18/16 at 10:01 ROMA BUNDY MD Sep 18, 2016 09:47
[2016-09-18 09:55] LABS: EOSINOPHILS # 0.1 10^3/ul (0.0-0.5); LYMPHOCYTES # 0.9 10^3/ul (0.8-2.9); MONOCYTE # 0.4 10^3/ul (0.3-0.9); NEUTROPHIL # 0.5 10^3/ul (1.6-7.5); PLATELET ESTIMATE PLT APPEAR DECREASED
[2016-09-18] MEDS ORDERED: LIDOCAINE 1% (MDV) 20 ML INJ INJ SCH (10:00)
[2016-09-18] MEDS ORDERED: LIDOCAINE 1% (MPF) 30 ML INJ INJ PRN (10:00)
[2016-09-18] MEDS: ACETAMINOPHEN 325 MG TAB PO PRN ×2 (13:04→20:22)
[2016-09-18] MEDS: AMLODIPINE 5 MG TAB PO SCH (20:23)
[2016-09-18] MEDS: INSULIN GLARGINE [LANtus] 3 ML PEN SC SCH (20:25)
[2016-09-18 20:26] VITALS: BP 110/60; RESP 18
[2016-09-19] VITALS (8 sets, daily range): BP systolic 117–145; BP diastolic 56–70; PULSE 76–86; RESP 18–20
[2016-09-19] MEDS: GUAIFENESIN/DM 5ML CUP PO PRN (01:05)
[2016-09-19] MEDS: ACCUCHECK AT 2AM (Patients on SS coverage) XX SCH (02:00)
[2016-09-19 05:53] LABS: HEMATOCRIT 19.1 % (42.0-52.0); MEAN CORPUSCULAR HEMOGLOBIN 28.4 pg (29.0-33.0); MEAN CORPUSCULAR HGB CONC 34.5 g/dl (32.0-37.0); MEAN CORPUSCULAR VOLUME 82.3 fl (82.0-101.0); MEAN PLATELET VOLUME 9.9 fl (7.4-10.4); RED BLOOD COUNT 2.32 10^6/ul (4.70-6.10); RED CELL DISTRIBUTION WIDTH 16.5 % (11.5-14.5); UNCORRECTED WBC 2.2 10^3/ul (4.8-10.8); WHITE BLOOD COUNT 2.2 10^3/ul (4.8-10.8)
[2016-09-19 06:11] LABS: URIC ACID 2.2 mg/dl (3.1-7.9)
[2016-09-19 06:14] LABS: CONDITION 1; HEMOGLOBIN 6.6 g/dl (14.0-18.0); LH ANALYZER COMMENTS 1; PLATELET COUNT 20 10^3/UL (140-440); SUSPECT 1
[2016-09-19 06:16] LABS: ALBUMIN 2.8 g/dl (3.3-4.9)
[2016-09-19 06:17] LABS: POTASSIUM 3.7 mmol/L (3.5-5.1)
[2016-09-19 06:19] LABS: ALBUMIN/GLOBULIN RATIO 0.68; BILIRUBIN,INDIRECT 0.2 mg/dl (0-1.1); BILIRUBIN,TOTAL 0.2 mg/dl (0.2-1.3); CALCIUM 8.3 mg/dl (8.4-10.2); CREATININE 0.62 mg/dl (0.61-1.24); TOTAL PROTEIN 6.9 g/dl (6.1-8.1)
[2016-09-19] MEDS: SUCRALFATE 1 GM TAB PO SCH ×4 (07:20→20:51)
[2016-09-19 07:34] LABS: MAGNESIUM 2.1 mg/dl (1.7-2.5); PHOSPHORUS 2.7 mg/dl (2.5-4.9)
[2016-09-19] MEDS: INSULIN ASPART [NOVOLOG] 3 ML PEN SC SCH ×3 (07:50→18:33)
[2016-09-19] MEDS: ACCUCHECK XX SCH ×4 (08:02→21:00)
[2016-09-19] MEDS: POLYETHYLENE GLYCOL 17 GM PACKET PO SCH (08:20)
[2016-09-19] MEDS: DOCUSATE SODIUM 100 MG CAP PO SCH ×2 (08:20→20:51)
[2016-09-19] MEDS ORDERED: LIDOCAINE 1% (MDV) 20 ML INJ INJ SCH (09:00)
[2016-09-19] MEDS: ALLOPURINOL 300 MG TAB PO SCH (09:00)
--- NOTE | 2016-09-19 09:42 | CONS ---
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 Pt has been started on 7+3 and tolerated chemotherapy well thus far. Problems: Additional Assessment/Plan -s/p induction chemotherapy 7+3, today is day 14 -s/p 1 units of platelets 09/02/16 and 09/10/16. CT head negative 09/02/16. Transfuse plt < 10, Hgb < 8. Patient remains transfusion dependant. Patient to receive 2 units pRBCs today for Hgb 6.6. -Flow showed 30% blasts on peripheral blood consistent with AML with monocytic component. s/p BMBx 09/04/16, revealing AML (acute myelomonocytic leukemia, M4) , CEBPA mutation detected, negative for NPM1 and negative for FLT3 mutation. 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 Deletion of 5q, monosomy 7 and complexity of the karotype are associated with poor risk. Given complex cytogenetics, patient may be referred for transplant evaluation. Will discuss with Dr. Gallegos. -Discussed with Dr. Gallegos, her primary oncologist, who is ok with induction chemotherapy. -Discussed with patient's daughter Tawny ([phone]). Patient and family agreeable to induction chemotherapy with 7+3 -Continue tumor lysis labs and allopurinol -PICC line placed -Patient will need to stay inpatient for 3-4 weeks to await count recovery and monitor for infection, transfusions, etc. Patient will need D14 bone marrow today 09/19/16, will perform at bedside. Side effects and course explained to the patient and family. -magic mouth wash for mucositis Cytarabine 100 mg/m2 CIV over 24 hours D1-7 Idarubicin 12 mg/m2 IVP D1- Problems: Consultation Date/Type/Reason Admit Date/Time Aug 31, 2016 at 00:38 Initial Consult Date 09/02/16 Type of Consultation: Hematology/Oncology Referring Provider: TAM ROSE 24 HR Interval Summary Free Text/Dictation Patient feeling weak today. Exam/Review of Systems Vital Signs Vitals Vital Signs Date Time Temp Pulse Resp B/P Pulse Ox O2 Delivery O2 Flow Rate FiO2 09/19/16 07:00 98.2 84 20 117/56 99 09/17/16 18:00 Room Air Intake and Output 09/18/16 09/18/16 09/19/16 15:00 23:00 07:00 Intake Total 1500 ml 1500 ml Output Total 1200 ml Balance 300 ml 1500 ml Exam Constitutional: alert, oriented Head: atraumatic, normocephalic Eyes: nl conjunctiva ENMT: nl external ears & nose Neck: non-tender, supple Respiratory: clear to auscultation, normal air movement Cardiovascular: nl pulses, regular rate and rhythm Gastrointestinal: soft Musculoskeletal: nl extremities to inspection, nl gait and stance Extremities: normal pulses 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 Results Result Diagram: 09/19/16 0415 09/19/16 0445 Results 24 hrs Laboratory Tests Test 09/18/16 12:28 09/18/16 17:58 09/18/16 20:20 09/19/16 01:42 Bedside Glucose 132 164 153 187 Test 09/19/16 04:15 09/19/16 04:45 09/19/16 08:00 Basophils # Basophils % Blood Morphology Comment Eosinophils # Eosinophils % Hematocrit 19.1 L Hemoglobin 6.6 *L Lymphocytes # Lymphocytes % Mean Corpuscular Hemoglobin 28.4 L Mean Corpuscular Hemoglobin Concent 34.5 Mean Corpuscular Volume 82.3 Mean Platelet Volume 9.9 # Monocytes # Neutrophils # Neutrophils % Nucleated Red Blood Cells # Nucleated Red Blood Cells % Platelet Count 20 #*L Red Blood Count 2.32 L Red Cell Distribution Width 16.5 H White Blood Count 2.2 L Alanine Aminotransferase (ALT/SGPT) 15 Albumin 2.8 L Albumin/Globulin Ratio 0.68 Alkaline Phosphatase 77 Anion Gap 12 Aspartate Amino Transf (AST/SGOT) 15 Blood Urea Nitrogen 17 Calcium Level 8.3 L Carbon Dioxide Level 27 Chloride Level 102 Creatinine 0.62 Direct Bilirubin 0.00 Globulin 4.10 H Glucose Level 136 Indirect Bilirubin 0.2 Lactate Dehydrogenase 505 Magnesium Level 2.1 Phosphorus Level 2.7 Potassium Level 3.7 Sodium Level 137 Total Bilirubin 0.2 Total Protein 6.9 Uric Acid 2.2 L Bedside Glucose 145 Medications Medications Current Medications Miscellaneous Information 1 ea NOTE XX ; Start 08/31/16 at 02:00 Glucose (Glutose) 15 gm Q15M PRN PO DECREASED GLUCOSE; Start 08/31/16 at 02:00 Glucose (Glutose) 22.5 gm Q15M PRN PO DECREASED GLUCOSE; Start 08/31/16 at 02:00 Dextrose (D50w Syringe) 25 ml Q15M PRN IV DECREASED GLUCOSE; Start 08/31/16 at 02:00 Dextrose (D50w Syringe) 50 ml Q15M PRN IV DECREASED GLUCOSE; Start 08/31/16 at 02:00 Glucagon (Glucagen) 1 mg Q15M PRN IM DECREASED GLUCOSE; Start 08/31/16 at 02:00 Glucose (Glutose) 15 gm Q15M PRN BUCCAL DECREASED GLUCOSE; Start 08/31/16 at 02: 00 Fluticasone Propionate (Flonase 0.05% Nasal) 2 spray DAILY NASAL Last administered on 09/18/16 09:07; Admin Dose 2 SPRAY; Start 08/31/16 at 09:00 Diagnostic Test (Pha) (Accucheck) 1 ea 02 XX ; Start 09/01/16 at 02:00 Ondansetron HCl (Zofran Inj) 4 mg Q6H PRN IV NAUSEA AND/OR VOMITING Last administered on 09/17/16 09:39; Admin Dose 4 MG; Start 09/01/16 at 11:30 Acetaminophen (Tylenol Tab) 650 mg Q6H PRN PO PAIN AND OR ELEVATED TEMP Last administered on 09/18/16 20:22; Admin Dose 650 MG; Start 09/01/16 at 11:30 Diphenhydramine HCl (Benadryl) 25 mg Q6H PRN PO ITCHING Last administered on 05:22; Admin Dose 25 MG; Start 09/01/16 at 11:30 Guaifenesin/ Dextromethorphan (Robitussin Dm Liquid Cup) 10 ml Q4H PRN PO COUGH Last administered on 09/19/16 01:05; Admin Dose 10 ML; Start 09/02/16 at 14:00 Allopurinol 300 mg 300 mg DAILY PO Last administered on 09/18/16 09:06; Admin Dose 300 MG; Start 09/04/16 at 16:30 Sodium Chloride (NS) 1,000 ml @ 50 mls/hr Q20H IV Last administered on 20:21; Admin Dose 50 MLS/HR; Start 09/05/16 at 12:00 IV Flush (NS 10 ml) 10 ml PRN PRN IV IV PROTOCOL; Start 09/05/16 at 12:30 Bisacodyl (Dulcolax Supp) 10 mg DAILY PRN [place] CONSTIPATION; Start 09/08/16 at 12 :00 Magnesium Hydroxide (Milk Of Mag) 30 ml DAILY PRN PO CONSTIPATION Last administered on 09/09/16 06:25; Admin Dose 30 ML; Start 09/08/16 at 12:00 Polyethylene Glycol (Miralax) 17 gm DAILY PO Last administered on 09/18/16 09: 10; Admin Dose 17 GM; Start 09/08/16 at 12:00 Docusate Sodium (Colace) 100 mg BID PO Last administered on 09/18/16 20:22; Admin Dose 100 MG; Start 09/08/16 at 21:00 Phenol (Cepastat Lozenge) 1 lozenge Q1H PRN [place] SORE THROAT Last administered on 09/17/16 20:16; Admin Dose 1 LOZENGE; Start 09/08/16 at 12:00 Amlodipine Besylate (Norvasc) 5 mg QHS PO Last administered on 09/18/16 20:23 ; Admin Dose 5 MG; Start 09/11/16 at 21:00 Miscellaneous Medication (Bax Susp) 30 ml QID PO Last administered on 20:22; Admin Dose 30 ML; Start 09/13/16 at 13:00 Nystatin (Nystatin Susp) 5 ml QID PO Last administered on 09/18/16 20:22; Admin Dose 5 ML; Start 09/14/16 at 17:00 Lidocaine (Xylocaine 1% (Mdv) 20 ml) 20 ml ONCE@09 INJ ; Start 09/19/16 at 09:00 ; Stop 09/19/16 at 22:00 Insulin Glargine (Lantus) 7.5 unit QHS SC Last administered on 09/18/16 20:25 ; Admin Dose 7.5 UNIT; Start 09/18/16 at 21:00 TOROMA MD Sep 19, 2016 09:42
[2016-09-19] MEDS: FLUTICASONE 0.05% 16 GM NAS SPRAY NASAL SCH (09:54)
[2016-09-19] MEDS: MYLANTA PO SCH ×4 (09:54→20:51)
[2016-09-19] MEDS: DIPHENHYD PO SCH ×4 (09:54→20:51)
[2016-09-19] MEDS: LIDO PO SCH ×4 (09:54→20:51)
[2016-09-19] MEDS: NYSTATIN SUSP 5 ML CUP PO SCH ×4 (09:56→20:51)
[2016-09-19 13:34] LABS: EOSINOPHILS # 0.1 10^3/ul (0.0-0.5); LYMPHOCYTES # 0.9 10^3/ul (0.8-2.9); MONOCYTE # 0.8 10^3/ul (0.3-0.9); NEUTROPHIL # 0.4 10^3/ul (1.6-7.5); PLATELET ESTIMATE PLT APPEAR DECREASED
--- NOTE | 2016-09-19 14:03 | PN ---
Date/Time of Note Date/Time of Note DATE: 09/19/16 TIME: 13:50 Assessment/Plan VTE Prophylaxis VTE Prophylaxis Intervention: SCD's Lines/Catheters IV Catheter Type (from Nrsg): PICC Line Central line still needed: Yes (for IV access ) Urinary Cath still in place: No Assessment/Plan Assessment/Plan 71 yo male with: 1. Acute Myeloid Leukemia, new diagnosis, transformation from CMML,s/p 4 units pRBC and 2 units platelets on admission Now had 3 units of platelets and 2 units pRBC since finished chemo this past weekend Counts still down with Neutropenia and severe thrombocytopenia, and today with Hb down to 6.6 so getting more pRBC, 2 additional units today. Follow up Hematology recs, BM bx being done at bed side by Dr Olivas and Dr Ruiz currently. 2. Diabetes mellitus, with associated neuropathy manifest by numbness in both feet. Previous clinical suspicion for diabetic gastroparesis. He has moderate hyperglycemia this time, for reasons unclear. No solis source of infection identified, and he has no fever. BG stable on current dosing of Lantus at 15 units qhs and continue SSI. Zofran as needed for Nausea likely chemo related at this point 3. Chronic benign positional vertigo. Continue Meclizine PRN 4. Gastroesophageal reflux disease. Continue Protonix 6. URI with cough and sore throat: CXR stable on admission, symptomatic treatment. 7. Hypertension: on Norvasc. 8. Oral mucosa irritation, cold sore and odynophagia: Continue Abreva and mouth wash, Nystatin. improving Prophylaxis. Sequential compression devices to lower extremity for DVT prevention, PPI for GI ppx DISPOSITION: S/p induction chemo, following counts, still neutropenic/ pancytopenic requiring close monitoring and blood product transfusion as needed. Bone Marrow bx done at bedside today, f/u pathology next week. OOB to chair at least 3x/day Subjective 24 Hr Interval Summary Free Text/Dictation Patient remains stable and having BM bx done right now, having some pain during procedure Receiving 2 units pRBC today Still with severely low counts requiring frequent pRBC or platelets transfusion Exam/Review of Systems Vital Signs Vitals Vital Signs Date Time Temp Pulse Resp B/P Pulse Ox O2 Delivery O2 Flow Rate FiO2 09/19/16 13:25 98.8 81 18 145/65 98 Room Air Intake and Output 09/18/16 09/18/1609/19/17 15:00 23:00 07:00 Intake Total 1500 ml 1500 ml Output Total 1200 ml Balance 300 ml 1500 ml Exam Constitutional: alert, oriented, well developed Respiratory: clear to auscultation, normal air movement Cardiovascular: nl pulses, regular rate and rhythm Gastrointestinal: non-tender, soft Musculoskeletal: nl extremities to inspection Extremities: normal pulses, other (no edema, clubbing or cyanosis ) 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, nl mental status, nl speech, other ( generalised weakness ) Results Result Diagram: 09/19/16 0415 09/19/16 0445 Results 24 hrs Laboratory Tests Test 09/18/16 17:58 09/18/16 20:20 09/19/16 01:42 09/19/16 04:15 Bedside Glucose 164 153 187 Basophils # 0.0 Basophils % 2.0 Blood Morphology Comment Eosinophils # 0.1 Eosinophils % 4.0 Hematocrit 19.1 L Hemoglobin 6.6 *L Lymphocytes # 0.9 Lymphocytes % 40.0 Mean Corpuscular Hemoglobin 28.4 L Mean Corpuscular Hemoglobin Concent 34.5 Mean Corpuscular Volume 82.3 Mean Platelet Volume 9.9 # Monocytes # 0.8 Monocytes % 35.0 H Neutrophils # 0.4 L Neutrophils % 19.0 L Nucleated Red Blood Cells # Nucleated Red Blood Cells % Platelet Count 20 #*L Platelet Estimate PLT APPEAR DECREASED Red Blood Count 2.32 L Red Cell Distribution Width 16.5 H White Blood Count 2.2 L Test 09/19/16 04:45 09/19/16 08:00 09/19/16 11:43 Alanine Aminotransferase (ALT/SGPT) 15 Albumin 2.8 L Albumin/Globulin Ratio 0.68 Alkaline Phosphatase 77 Anion Gap 12 Aspartate Amino Transf (AST/SGOT) 15 Blood Urea Nitrogen 17 Calcium Level 8.3 L Carbon Dioxide Level 27 Chloride Level 102 Creatinine 0.62 Direct Bilirubin 0.00 Globulin 4.10 H Glucose Level 136 Indirect Bilirubin 0.2 Lactate Dehydrogenase 505 Magnesium Level 2.1 Phosphorus Level 2.7 Potassium Level 3.7 Sodium Level 137 Total Bilirubin 0.2 Total Protein 6.9 Uric Acid 2.2 L Bedside Glucose 145 175 Medications Medications Current Medications Miscellaneous Information 1 ea NOTE XX ; Start 08/31/16 at 02:00 Glucose (Glutose) 15 gm Q15M PRN PO DECREASED GLUCOSE; Start 08/31/16 at 02:00 Glucose (Glutose) 22.5 gm Q15M PRN PO DECREASED GLUCOSE; Start 08/31/16 at 02:00 Dextrose (D50w Syringe) 25 ml Q15M PRN IV DECREASED GLUCOSE; Start 08/31/16 at 02:00 Dextrose (D50w Syringe) 50 ml Q15M PRN IV DECREASED GLUCOSE; Start 08/31/16 at 02:00 Glucagon (Glucagen) 1 mg Q15M PRN IM DECREASED GLUCOSE; Start 08/31/16 at 02:00 Glucose (Glutose) 15 gm Q15M PRN BUCCAL DECREASED GLUCOSE; Start 08/31/16 at 02: 00 Fluticasone Propionate (Flonase 0.05% Nasal) 2 spray DAILY NASAL Last administered on 09/19/16 09:54; Admin Dose 2 SPRAY; Start 08/31/16 at 09:00 Diagnostic Test (Pha) (Accucheck) 1 ea XX ; Start 09/01/16 at 02:00 Ondansetron HCl (Zofran Inj) 4 mg Q6H PRN IV NAUSEA AND/OR VOMITING Last administered on 09/17/16 09:39; Admin Dose 4 MG; Start 09/01/16 at 11:30 Acetaminophen (Tylenol Tab) 650 mg Q6H PRN PO PAIN AND OR ELEVATED TEMP Last administered on 09/18/16 20:22; Admin Dose 650 MG; Start 09/01/16 at 11:30 Diphenhydramine HCl (Benadryl) 25 mg Q6H PRN PO ITCHING Last administered on 05:22; Admin Dose 25 MG; Start 09/01/16 at 11:30 Guaifenesin/ Dextromethorphan (Robitussin Dm Liquid Cup) 10 ml Q4H PRN PO COUGH Last administered on 09/19/16 01:05; Admin Dose 10 ML; Start 09/02/16 at 14:00 Allopurinol 300 mg 300 mg DAILY PO Last administered on 09/18/16 09:06; Admin Dose 300 MG; Start 09/04/16 at 16:30 Sodium Chloride (NS) 1,000 ml @ 50 mls/hr Q20H IV Last administered on 20:21; Admin Dose 50 MLS/HR; Start 09/05/16 at 12:00 IV Flush (NS 10 ml) 10 ml PRN PRN IV IV PROTOCOL; Start 09/05/16 at 12:30 Bisacodyl (Dulcolax Supp) 10 mg DAILY PRN [place] CONSTIPATION; Start 09/08/16 at 12 :00 Magnesium Hydroxide (Milk Of Mag) 30 ml DAILY PRN PO CONSTIPATION Last administered on 09/09/16 06:25; Admin Dose 30 ML; Start 09/08/16 at 12:00 Polyethylene Glycol (Miralax) 17 gm DAILY PO Last administered on 09/18/16 09: 10; Admin Dose 17 GM; Start 09/08/16 at 12:00 Docusate Sodium (Colace) 100 mg BID PO Last administered on 09/18/16 20:22; Admin Dose 100 MG; Start 09/08/16 at 21:00 Phenol (Cepastat Lozenge) 1 lozenge Q1H PRN [place] SORE THROAT Last administered on 09/17/16 20:16; Admin Dose 1 LOZENGE; Start 09/08/16 at 12:00 Amlodipine Besylate (Norvasc) 5 mg QHS PO Last administered on 09/18/16 20:23 ; Admin Dose 5 MG; Start 09/11/16 at 21:00 Miscellaneous Medication (Bax Susp) 30 ml QID PO Last administered on 12:21; Admin Dose 30 ML; Start 09/13/16 at 13:00 Nystatin (Nystatin Susp) 5 ml QID PO Last administered on 09/19/16 12:21; Admin Dose 5 ML; Start 09/14/16 at 17:00 Lidocaine (Xylocaine 1% (Mdv) 20 ml) 20 ml ONCE@09 INJ ; Start 09/19/16 at 09:00 ; Stop 09/19/16 at 22:00 Insulin Glargine (Lantus) 7.5 unit QHS SC Last administered on 09/18/16 20:25 ; Admin Dose 7.5 UNIT; Start 09/18/16 at 21:00 TAM ROSE Sep 19, 2016 14:02
[2016-09-19] MEDS ORDERED: POTASSIUM CHLORIDE (SR) 10 MEQ TAB PO ONE (14:30)
[2016-09-19] MEDS: AMLODIPINE 5 MG TAB PO SCH (20:54)
[2016-09-19] MEDS: INSULIN GLARGINE [LANtus] 3 ML PEN SC SCH (21:08)
[2016-09-20] MEDS: ACCUCHECK AT 2AM (Patients on SS coverage) XX SCH (02:00)
[2016-09-20] MEDS: SOD CHLORIDE 0.9% 1,000 ML IV SCH ×2 (04:19→12:00)
[2016-09-20 06:11] LABS: HEMATOCRIT 24.7 % (42.0-52.0); HEMOGLOBIN 8.7 g/dl (14.0-18.0); MEAN CORPUSCULAR HGB CONC 35.1 g/dl (32.0-37.0); MEAN CORPUSCULAR VOLUME 82.5 fl (82.0-101.0); MEAN PLATELET VOLUME 8.1 fl (7.4-10.4); RED BLOOD COUNT 2.99 10^6/ul (4.70-6.10); RED CELL DISTRIBUTION WIDTH 15.4 % (11.5-14.5)
[2016-09-20 06:16] LABS: URIC ACID 2.1 mg/dl (3.1-7.9)
[2016-09-20 06:19] LABS: ALBUMIN 3.1 g/dl (3.3-4.9); POTASSIUM 3.9 mmol/L (3.5-5.1)
[2016-09-20 06:21] LABS: CREATININE 0.62 mg/dl (0.61-1.24)
[2016-09-20 06:22] LABS: ALBUMIN/GLOBULIN RATIO 0.73; BILIRUBIN,INDIRECT 0.8 mg/dl (0-1.1); BILIRUBIN,TOTAL 0.8 mg/dl (0.2-1.3); CALCIUM 8.3 mg/dl (8.4-10.2); TOTAL PROTEIN 7.3 g/dl (6.1-8.1)
[2016-09-20 06:26] LABS: CONDITION 1; LH ANALYZER COMMENTS 1; SUSPECT 1
[2016-09-20 06:28] LABS: PLATELET COUNT 10 10^3/UL (140-440)
[2016-09-20 07:00] VITALS: BP 145/70; RESP 19
[2016-09-20] MEDS: ACCUCHECK XX SCH ×4 (08:14→20:55)
[2016-09-20] MEDS: SUCRALFATE 1 GM TAB PO SCH ×4 (08:24→20:45)
[2016-09-20] MEDS: INSULIN ASPART [NOVOLOG] 3 ML PEN SC SCH ×3 (08:25→17:08)
[2016-09-20] MEDS: DIPHENHYD PO SCH ×4 (08:35→20:45)
[2016-09-20] MEDS: POLYETHYLENE GLYCOL 17 GM PACKET PO SCH (08:35)
[2016-09-20] MEDS: ALLOPURINOL 300 MG TAB PO SCH (08:35)
[2016-09-20] MEDS: MYLANTA PO SCH ×4 (08:35→20:45)
[2016-09-20] MEDS: NYSTATIN SUSP 5 ML CUP PO SCH ×4 (08:35→20:45)
[2016-09-20] MEDS: LIDO PO SCH ×4 (08:35→20:45)
[2016-09-20] MEDS: DOCUSATE SODIUM 100 MG CAP PO SCH ×2 (08:35→20:46)
[2016-09-20] MEDS: FLUTICASONE 0.05% 16 GM NAS SPRAY NASAL SCH (08:36)
[2016-09-20 09:42] LABS: BASOPHIL # 0.1 10^3/ul (0.0-0.1); EOSINOPHILS # 0.2 10^3/ul (0.0-0.5); LYMPHOCYTES # 0.7 10^3/ul (0.8-2.9); MONOCYTE # 1.4 10^3/ul (0.3-0.9); NEUTROPHIL # 0.6 10^3/ul (1.6-7.5)
[2016-09-20 09:43] LABS: ANISOCYTOSIS 1+; PLATELET ESTIMATE PLT APPEAR DECREASED
--- NOTE | 2016-09-20 10:17 | PN ---
Date/Time of Note Date/Time of Note DATE: 09/20/16 TIME: 10:11 Assessment/Plan VTE Prophylaxis VTE Prophylaxis Intervention: SCD's Lines/Catheters IV Catheter Type (from Nrsg): Central Line Central line still needed: Yes Urinary Cath still in place: No Assessment/Plan Assessment/Plan 71 yo male with: 1. 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 Will likely need platelets transfusion today. No active bleeding. Follow up Hematology recs, BM bx being done at bed side by Dr. Olivas and Dr Ruiz currently. 2. Diabetes mellitus, with associated neuropathy manifest by numbness in both feet. Previous clinical suspicion for diabetic gastroparesis. He has moderate hyperglycemia this time, for reasons unclear. No solis source of infection identified, and he has no fever. BG stable on current dosing of Lantus at 15 units qhs and continue SSI. Zofran as needed for Nausea likely chemo related at this point 3. Chronic benign positional vertigo. Continue Meclizine PRN 4. Gastroesophageal reflux disease. Continue Protonix 6. URI with cough and sore throat: CXR stable on admission, symptomatic treatment. 7. Hypertension: Good control on norvasc. 8. Oral mucosa irritation, cold sore and odynophagia: Continue Abreva and mouth wash, Nystatin. improving Prophylaxis. Sequential compression devices to lower extremity for DVT prevention, PPI for GI ppx DISPOSITION: S/p induction chemo, following counts, still neutropenic/ pancytopenic requiring close monitoring and blood product transfusion as needed. Bone Marrow bx done at bedside yesterday, f/u pathology next week. OOB to chair at least 3x/day Subjective 24 Hr Interval Summary Free Text/Dictation Resting in bed. No complaints. Exam/Review of Systems Vital Signs Vitals Vital Signs Date Time Temp Pulse Resp B/P Pulse Ox O2 Delivery O2 Flow Rate FiO2 09/20/16 07:00 98.2 70 19 145/70 98 09/19/16 14:18 Room Air Intake and Output 09/19/16 09/19/16 09/20/16 15:00 23:00 07:00 Intake Total 1200 ml 1630 ml Output Total 900 ml 2600 ml Balance 300 ml -970 ml Exam Constitutional: alert, oriented Head: normocephalic Eyes: nl conjunctiva Neck: supple Respiratory: clear to auscultation Cardiovascular: regular rate and rhythm Gastrointestinal: soft Extremities: normal pulses Results Result Diagram: 09/20/16 0420 09/20/16 0420 Results 24 hrs Laboratory Tests Test 09/19/16 11:43 09/19/16 18:05 09/19/16 20:51 09/20/16 04:20 Bedside Glucose 175 172 162 Alanine Aminotransferase (ALT/SGPT) 25 Albumin 3.1 L Albumin/Globulin Ratio 0.73 Alkaline Phosphatase 80 Anion Gap 14 Anisocytosis 1+ Aspartate Amino Transf (AST/SGOT) 18 Band Neutrophils % 2.0 Basophils # 0.1 Basophils % 2.0 Blood Morphology Comment Blood Urea Nitrogen 13 Calcium Level 8.3 L Carbon Dioxide Level 26 Chloride Level 100 Creatinine 0.62 Direct Bilirubin 0.00 Eosinophils # 0.2 Eosinophils % 5.0 Globulin 4.20 H Glucose Level 107 Hematocrit 24.7 #L Hemoglobin 8.7 #L Indirect Bilirubin 0.8 Lactate Dehydrogenase 519 Lymphocytes # 0.7 L Lymphocytes % 24.0 Mean Corpuscular Hemoglobin 29.0 Mean Corpuscular Hemoglobin Concent 35.1 Mean Corpuscular Volume 82.5 Mean Platelet Volume 8.1 Monocytes # 1.4 H Monocytes % 46.0 H Neutrophils # 0.6 L Neutrophils % 21.0 L Nucleated Red Blood Cells # Nucleated Red Blood Cells % Platelet Count 10 #*L Platelet Estimate PLT APPEAR DECREASED Potassium Level 3.9 Red Blood Count 2.99 #L Red Cell Distribution Width 15.4 H Sodium Level 136 Total Bilirubin 0.8 Total Protein 7.3 Uric Acid 2.1 L White Blood Count 3.0 #L Test 09/20/16 08:03 Bedside Glucose 134 Medications Medications Current Medications Miscellaneous Information 1 ea NOTE XX ; Start 08/31/16 at 02:00 Glucose (Glutose) 15 gm Q15M PRN PO DECREASED GLUCOSE; Start 08/31/16 at 02:00 Glucose (Glutose) 22.5 gm Q15M PRN PO DECREASED GLUCOSE; Start 08/31/16 at 02:00 Dextrose (D50w Syringe) 25 ml Q15M PRN IV DECREASED GLUCOSE; Start 08/31/16 at 02:00 Dextrose (D50w Syringe) 50 ml Q15M PRN IV DECREASED GLUCOSE; Start 08/31/16 at 02:00 Glucagon (Glucagen) 1 mg Q15M PRN IM DECREASED GLUCOSE; Start 08/31/16 at 02:00 Glucose (Glutose) 15 gm Q15M PRN BUCCAL DECREASED GLUCOSE; Start 08/31/16 at 02: 00 Fluticasone Propionate (Flonase 0.05% Nasal) 2 spray DAILY NASAL Last administered on 09/20/16 08:36; Admin Dose 2 SPRAY; Start 08/31/16 at 09:00 Diagnostic Test (Pha) (Accucheck) 02 XX ; Start 09/01/16 at 02:00 Ondansetron HCl (Zofran Inj) 4 mg Q6H PRN IV NAUSEA AND/OR VOMITING Last administered on 09/17/16 09:39; Admin Dose 4 MG; Start 09/01/16 at 11:30 Acetaminophen (Tylenol Tab) 650 mg Q6H PRN PO PAIN AND OR ELEVATED TEMP Last administered on 09/18/16 20:22; Admin Dose 650 MG; Start 09/01/16 at 11:30 Diphenhydramine HCl (Benadryl) 25 mg Q6H PRN PO ITCHING Last administered on 05:22; Admin Dose 25 MG; Start 09/01/16 at 11:30 Guaifenesin/ Dextromethorphan (Robitussin Dm Liquid Cup) 10 ml Q4H PRN PO COUGH Last administered on 09/19/16 01:05; Admin Dose 10 ML; Start 09/02/16 at 14:00 Allopurinol 300 mg 300 mg DAILY PO Last administered on 09/20/16 08:35; Admin Dose 300 MG; Start 09/04/16 at 16:30 Sodium Chloride (NS) 1,000 ml @ 50 mls/hr Q20H IV Last administered on 04:19; Admin Dose 50 MLS/HR; Start 09/05/16 at 12:00 IV Flush (NS 10 ml) 10 ml PRN PRN IV IV PROTOCOL; Start 09/05/16 at 12:30 Bisacodyl (Dulcolax Supp) 10 mg DAILY PRN [place] CONSTIPATION; Start 09/08/16 at 12 :00 Magnesium Hydroxide (Milk Of Mag) 30 ml DAILY PRN PO CONSTIPATION Last administered on 09/09/16 06:25; Admin Dose 30 ML; Start 09/08/16 at 12:00 Polyethylene Glycol (Miralax) 17 gm DAILY PO Last administered on 09/20/16 08: 35; Admin Dose 17 GM; Start 09/08/16 at 12:00 Docusate Sodium (Colace) 100 mg BID PO Last administered on 09/20/16 08:35; Admin Dose 100 MG; Start 09/08/16 at 21:00 Phenol (Cepastat Lozenge) 1 lozenge Q1H PRN MT SORE THROAT Last administered on 09/17/16 20:16; Admin Dose 1 LOZENGE; Start 09/08/16 at 12:00 Amlodipine Besylate (Norvasc) 5 mg QHS PO Last administered on 09/19/16 20:54 ; Admin Dose 5 MG; Start 09/11/16 at 21:00 Miscellaneous Medication (Bax Susp) 30 ml QID PO Last administered on 08:35; Admin Dose 30 ML; Start 09/13/16 at 13:00 Nystatin (Nystatin Susp) 5 ml QID PO Last administered on 09/20/16 08:35; Admin Dose 5 ML; Start 09/14/16 at 17:00 Insulin Glargine (Lantus) 7.5 unit QHS SC Last administered on 09/19/16 21:08 ; Admin Dose 7.5 UNIT; Start 09/18/16 at 21:00 GIOVANNY PALM MD Sep 20, 2016 10:17
[2016-09-20] MEDS ORDERED: SOD CHLORIDE 0.9% 250 ML IV* ONE (13:26)
--- NOTE | 2016-09-20 13:44 | PN ---
Date/Time of Note Date/Time of Note DATE: 09/20/16 TIME: 13:40 Assessment/Plan VTE Prophylaxis VTE Prophylaxis Intervention: ambulation Lines/Catheters [facility] Central Line Central line still needed: Yes Urinary Cath still in place: No Assessment/Plan Assessment/Plan 71 yo with CMML who is currently off therapy admitted for symptomatic anemia and thrombocytopenia. 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 Pt has been started on 7+3 and tolerated chemotherapy well thus far. Problems: Additional Assessment/Plan -Flow showed 30% blasts on peripheral blood consistent with AML with monocytic component. s/p BMBx 09/04/16, revealing AML (acute myelomonocytic leukemia, M4) , CEBPA mutation detected, negative for NPM1 and negative for FLT3 mutation. 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 Deletion of 5q, monosomy 7 and complexity of the karotype are associated with poor risk. Given complex cytogenetics, patient may be referred for transplant evaluation as outpatient. -Dr Olivas discussed with patient's daughter Tawny ([phone]). Patient and family agreed to induction chemotherapy with 7+3 -Continue allopurinol -transfuse 2 units PRBC for hgb less than 8, 1 unit platelet for plt count less than 10. -Patient will need to stay inpatient for 3-4 weeks to await count recovery and monitor for infection, transfusions, etc. Patient s/p D14 bone marrow 09/19/16 d/w PMD Subjective 24 Hr Interval Summary Subjective hx not possible: pt critical status Gastrointestinal: pain Exam/Review of Systems Vital Signs Vitals Vital Signs Date Time Temp Pulse Resp B/P Pulse Ox O2 Delivery O2 Flow Rate FiO2 09/20/16 07:00 98.2 70 19 145/70 98 09/19/16 14:18 Room Air Intake and Output 09/19/16 09/19/16 09/20/16 14:59 22:59 06:59 Intake Total 1200 ml 1630 ml Output Total 900 ml 2600 ml Balance 300 ml -970 ml Exam Constitutional: alert, oriented Psych: anxiety Eyes: nl conjunctiva Neck: supple Respiratory: normal air movement Gastrointestinal: soft Results Result Diagram: 09/20/16 0420 09/20/16 0420 Results 24 hrs Laboratory Tests Test 09/19/16 18:05 09/19/16 20:51 09/20/16 04:20 09/20/16 08:03 Bedside Glucose 172 162 134 Alanine Aminotransferase (ALT/SGPT) 25 Albumin 3.1 L Albumin/Globulin Ratio 0.73 Alkaline Phosphatase 80 Anion Gap 14 Anisocytosis 1+ Aspartate Amino Transf (AST/SGOT) 18 Band Neutrophils % 2.0 Basophils # 0.1 Basophils % 2.0 Blood Morphology Comment Blood Urea Nitrogen 13 Calcium Level 8.3 L Carbon Dioxide Level 26 Chloride Level 100 Creatinine 0.62 Direct Bilirubin 0.00 Eosinophils # 0.2 Eosinophils % 5.0 Globulin 4.20 H Glucose Level 107 Hematocrit 24.7 #L Hemoglobin 8.7 #L Indirect Bilirubin 0.8 Lactate Dehydrogenase 519 Lymphocytes # 0.7 L Lymphocytes % 24.0 Mean Corpuscular Hemoglobin 29.0 Mean Corpuscular Hemoglobin Concent 35.1 Mean Corpuscular Volume 82.5 Mean Platelet Volume 8.1 Monocytes # 1.4 H Monocytes % 46.0 H Neutrophils # 0.6 L Neutrophils % 21.0 L Nucleated Red Blood Cells # Nucleated Red Blood Cells % Platelet Count 10 #*L Platelet Estimate PLT APPEAR DECREASED Potassium Level 3.9 Red Blood Count 2.99 #L Red Cell Distribution Width 15.4 H Sodium Level 136 Total Bilirubin 0.8 Total Protein 7.3 Uric Acid 2.1 L White Blood Count 3.0 #L Test 09/20/16 11:49 Bedside Glucose 179 Medications Medications Current Medications Miscellaneous Information 1 ea NOTE XX ; Start 08/31/16 at 02:00 Glucose (Glutose) 15 gm Q15M PRN PO DECREASED GLUCOSE; Start 08/31/16 at 02:00 Glucose (Glutose) 22.5 gm Q15M PRN PO DECREASED GLUCOSE; Start 08/31/16 at 02:00 Dextrose (D50w Syringe) 25 ml Q15M PRN IV DECREASED GLUCOSE; Start 08/31/16 at 02:00 Dextrose (D50w Syringe) 50 ml Q15M PRN IV DECREASED GLUCOSE; Start 08/31/16 at 02:00 Glucagon (Glucagen) 1 mg Q15M PRN IM DECREASED GLUCOSE; Start 08/31/16 at 02:00 Glucose (Glutose) 15 gm Q15M PRN BUCCAL DECREASED GLUCOSE; Start 08/31/16 at 02: 00 Fluticasone Propionate (Flonase 0.05% Nasal) 2 spray DAILY NASAL Last administered on 09/20/16 08:36; Admin Dose 2 SPRAY; Start 08/31/16 at 09:00 Diagnostic Test (Pha) (Accucheck) 1 ea 02 XX ; Start 09/01/16 at 02:00 Ondansetron HCl (Zofran Inj) 4 mg Q6H PRN IV NAUSEA AND/OR VOMITING Last administered on 09/17/16 09:39; Admin Dose 4 MG; Start 09/01/16 at 11:30 Acetaminophen (Tylenol Tab) 650 mg Q6H PRN PO PAIN AND OR ELEVATED TEMP Last administered on 09/18/16 20:22; Admin Dose 650 MG; Start 09/01/16 at 11:30 Diphenhydramine HCl (Benadryl) 25 mg Q6H PRN PO ITCHING Last administered on 05:22; Admin Dose 25 MG; Start 09/01/16 at 11:30 Guaifenesin/ Dextromethorphan (Robitussin Dm Liquid Cup) 10 ml Q4H PRN PO COUGH Last administered on 09/19/16 01:05; Admin Dose 10 ML; Start 09/02/16 at 14:00 Allopurinol 300 mg 300 mg DAILY PO Last administered on 09/20/16 08:35; Admin Dose 300 MG; Start 09/04/16 at 16:30 Sodium Chloride (NS) 1,000 ml @ 50 mls/hr Q20H IV Last administered on 04:19; Admin Dose 50 MLS/HR; Start 09/05/16 at 12:00 IV Flush (NS 10 ml) 10 ml PRN PRN IV IV PROTOCOL; Start 09/05/16 at 12:30 Bisacodyl (Dulcolax Supp) 10 mg DAILY PRN [place] CONSTIPATION; Start 09/08/16 at 12 :00 Magnesium Hydroxide (Milk Of Mag) 30 ml DAILY PRN PO CONSTIPATION Last administered on 09/09/16 06:25; Admin Dose 30 ML; Start 09/08/16 at 12:00 Polyethylene Glycol (Miralax) 17 gm DAILY PO Last administered on 09/20/16 08: 35; Admin Dose 17 GM; Start 09/08/16 at 12:00 Docusate Sodium (Colace) 100 mg BID PO Last administered on 09/20/16 08:35; Admin Dose 100 MG; Start 09/08/16 at 21:00 Phenol (Cepastat Lozenge) 1 lozenge Q1H PRN [place] SORE THROAT Last administered on 09/17/16 20:16; Admin Dose 1 LOZENGE; Start 09/08/16 at 12:00 Amlodipine Besylate (Norvasc) 5 mg QHS PO Last administered on 09/19/16 20:54 ; Admin Dose 5 MG; Start 09/11/16 at 21:00 Miscellaneous Medication (Bax Susp) 30 ml QID PO Last administered on 13:04; Admin Dose 30 ML; Start 09/13/16 at 13:00 Nystatin (Nystatin Susp) 5 ml QID PO Last administered on 09/20/16 13:04; Admin Dose 5 ML; Start 09/14/16 at 17:00 Insulin Glargine (Lantus) 7.5 unit QHS SC Last administered on 09/19/16 21:08 ; Admin Dose 7.5 UNIT; Start 09/18/16 at 21:00 LANNY LUX MD Sep 20, 2016 13:44
[2016-09-20 20:35] VITALS: BP 147/70; RESP 20
[2016-09-20] MEDS: AMLODIPINE 5 MG TAB PO SCH (20:46)
[2016-09-20] MEDS: INSULIN GLARGINE [LANtus] 3 ML PEN SC SCH (20:53)
[2016-09-21] MEDS: ACCUCHECK AT 2AM (Patients on SS coverage) XX SCH (02:00)
[2016-09-21 05:17] LABS: HEMOGLOBIN 7.5 g/dl (14.0-18.0); MEAN CORPUSCULAR HEMOGLOBIN 29.5 pg (29.0-33.0); MEAN CORPUSCULAR HGB CONC 35.8 g/dl (32.0-37.0); MEAN CORPUSCULAR VOLUME 82.3 fl (82.0-101.0); MEAN PLATELET VOLUME 7.6 fl (7.4-10.4); RED BLOOD COUNT 2.55 10^6/ul (4.70-6.10); RED CELL DISTRIBUTION WIDTH 15.7 % (11.5-14.5); UNCORRECTED WBC 3.1 10^3/ul (4.8-10.8); WHITE BLOOD COUNT 3.1 10^3/ul (4.8-10.8)
[2016-09-21] MEDS: SOD CHLORIDE 0.9% 1,000 ML IV SCH ×2 (05:21→08:00)
[2016-09-21 05:27] LABS: ALBUMIN 2.7 g/dl (3.3-4.9)
[2016-09-21 05:29] LABS: URIC ACID 1.6 mg/dl (3.1-7.9)
[2016-09-21 05:30] LABS: ALBUMIN/GLOBULIN RATIO 0.64; BILIRUBIN,INDIRECT 0.3 mg/dl (0-1.1); BILIRUBIN,TOTAL 0.3 mg/dl (0.2-1.3); CREATININE 0.64 mg/dl (0.61-1.24); TOTAL PROTEIN 6.9 g/dl (6.1-8.1)
[2016-09-21 05:31] LABS: CALCIUM 8.4 mg/dl (8.4-10.2)
[2016-09-21 06:32] LABS: CONDITION 1; LH ANALYZER COMMENTS 1; PLATELET COUNT 6 10^3/UL (140-440); SUSPECT 1
[2016-09-21 07:59] VITALS: BP 130/62; RESP 20
[2016-09-21 08:05] VITALS: BP 150/78; RESP 18
[2016-09-21] MEDS: NYSTATIN SUSP 5 ML CUP PO SCH ×4 (08:31→20:43)
[2016-09-21] MEDS: LIDO PO SCH ×4 (08:31→20:43)
[2016-09-21] MEDS: POLYETHYLENE GLYCOL 17 GM PACKET PO SCH (08:31)
[2016-09-21] MEDS: MYLANTA PO SCH ×4 (08:31→20:43)
[2016-09-21] MEDS: DIPHENHYD PO SCH ×4 (08:31→20:43)
[2016-09-21] MEDS: FLUTICASONE 0.05% 16 GM NAS SPRAY NASAL SCH (08:31)
[2016-09-21] MEDS: DOCUSATE SODIUM 100 MG CAP PO SCH ×2 (08:32→20:43)
[2016-09-21] MEDS: ALLOPURINOL 300 MG TAB PO SCH (08:32)
[2016-09-21] MEDS: SUCRALFATE 1 GM TAB PO SCH ×4 (08:33→20:46)
[2016-09-21] MEDS: ACCUCHECK XX SCH ×4 (08:34→20:44)
[2016-09-21] MEDS: INSULIN ASPART [NOVOLOG] 3 ML PEN SC SCH ×3 (08:36→17:52)
[2016-09-21 09:37] LABS: ANISOCYTOSIS 1+; EOSINOPHILS # 0.1 10^3/ul (0.0-0.5); LYMPHOCYTES # 0.9 10^3/ul (0.8-2.9); MONOCYTE # 1.4 10^3/ul (0.3-0.9); NEUTROPHIL # 0.6 10^3/ul (1.6-7.5)
[2016-09-21 09:38] LABS: PLATELET ESTIMATE PLT APPEAR DECREASED
[2016-09-21] MEDS ORDERED: PANTOPRAZOLE 40 MG INJ IV SCH (10:00)
[2016-09-21] MEDS ORDERED: SOD CHLORIDE 0.9% 250 ML IV* ONE (12:48)
--- NOTE | 2016-09-21 12:48 | PN ---
Date/Time of Note Date/Time of Note DATE: 09/21/16 TIME: 12:41 Assessment/Plan VTE Prophylaxis VTE Prophylaxis Intervention: ambulation Lines/Catheters IV [facility] Type (from [facility] Central Line Central line still needed: Yes Urinary Cath still in place: No Assessment/Plan Assessment/Plan 71 yo with CMML who was off therapy admitted for symptomatic anemia and thrombocytopenia. 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 Pt s/p induction chemorx 7+3 and tolerated chemotherapy well thus far. Problems: Additional Assessment/Plan -Flow showed 30% blasts on peripheral blood consistent with AML with monocytic component. s/p BMBx 09/04/16, revealing AML (acute myelomonocytic leukemia, M4) , CEBPA mutation detected, negative for NPM1 and negative for FLT3 mutation. 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 Deletion of 5q, monosomy 7 and complexity of the karotype are associated with poor risk. Given complex cytogenetics, patient may be referred for transplant evaluation as outpatient. -Continue allopurinol -transfuse 2 units PRBC for hgb less than 8, 1 unit platelet for plt count less than 10 which was done today. will write for 1 unit prbc to avoid fluid overload. -Patient will need to stay inpatient for 3-4 weeks to await count recovery and monitor for infection, transfusions, etc. Patient s/p D14 bone marrow 09/19/16 and follow results. -One episode of hematemesis per nursing staff and now s/p 1 unit platelet transfusion and prbc as ordered. Continue PPI -vitals stable now and continue IVF at 50 cc/h Subjective 24 Hr Interval Summary Free Text/Dictation Per nursing staff, patient had episode of hematemesis. Had platelet transfusion without complications. vital signs stable and patient AAOx3 Exam/Review of Systems Vital Signs Vitals Vital Signs Date Time Temp Pulse Resp B/P Pulse Ox O2 Delivery O2 Flow Rate FiO2 09/21/16 08:05 98.1 87 18 150/78 96 09/19/16 14:18 Room Air Intake and Output 09/20/16 09/20/16 09/21/16 15:00 23:00 07:00 Intake Total 1780 ml 2060 ml Output Total 1500 ml 1180 ml Balance 280 ml 880 ml Exam pale conjunctiva, no rales or crackles Constitutional: alert, oriented Head: normocephalic Neck: supple Respiratory: clear to auscultation, normal air movement Cardiovascular: regular rate and rhythm Gastrointestinal: soft Results Result Diagram: 09/21/16 0425 09/21/16 0425 Results 24 hrs Laboratory Tests Test 09/20/16 16:52 09/20/16 20:44 09/21/16 04:25 09/21/16 08:11 Bedside Glucose 136 160 261 H Alanine Aminotransferase (ALT/SGPT) 22 Albumin 2.7 L Albumin/Globulin Ratio 0.64 Alkaline Phosphatase 75 Anion Gap 12 Anisocytosis 1+ Aspartate Amino Transf (AST/SGOT) 14 L Band Neutrophils % 2.0 Basophils # 0.0 Basophils % 1.0 Blood Morphology Comment Blood Urea Nitrogen 17 Calcium Level 8.4 Carbon Dioxide Level 27 Chloride Level 99 Creatinine 0.64 Differential Comment MANUAL DIFF Direct Bilirubin 0.00 Eosinophils # 0.1 Eosinophils % 4.0 Globulin 4.20 H Glucose Level 161 Hematocrit 21.0 L Hemoglobin 7.5 L Indirect Bilirubin 0.3 Lactate Dehydrogenase 441 Lymphocytes # 0.9 Lymphocytes % 28.0 Mean Corpuscular Hemoglobin 29.5 Mean Corpuscular Hemoglobin Concent 35.8 Mean Corpuscular Volume 82.3 Mean Platelet Volume 7.6 Monocytes # 1.4 H Monocytes % 45.0 H Neutrophils # 0.6 L Neutrophils % 20.0 L Nucleated Red Blood Cells # Nucleated Red Blood Cells % Platelet Count 6 #*L Platelet Estimate PLT APPEAR DECREASED Potassium Level 4.0 Red Blood Count 2.55 L Red Cell Distribution Width 15.7 H Sodium Level 134 L Total Bilirubin 0.3 Total Protein 6.9 Uric Acid 1.6 L White Blood Count 3.1 L Test 09/21/16 12:08 Bedside Glucose 139 Medications Medications Current Medications Miscellaneous Information 1 ea NOTE XX ; Start 08/31/16 at 02:00 Glucose (Glutose) 15 gm Q15M PRN PO DECREASED GLUCOSE; Start 08/31/16 at 02:00 Glucose (Glutose) 22.5 gm Q15M PRN PO DECREASED GLUCOSE; Start 08/31/16 at 02:00 Dextrose (D50w Syringe) 25 ml Q15M PRN IV DECREASED GLUCOSE; Start 08/31/16 at 02:00 Dextrose (D50w Syringe) 50 ml Q15M PRN IV DECREASED GLUCOSE; Start 08/31/16 at 02:00 Glucagon (Glucagen) 1 mg Q15M PRN IM DECREASED GLUCOSE; Start 08/31/16 at 02:00 Glucose (Glutose) 15 gm Q15M PRN BUCCAL DECREASED GLUCOSE; Start 08/31/16 at 02: 00 Fluticasone Propionate (Flonase 0.05% Nasal) 2 spray DAILY NASAL Last administered on 09/21/16 08:31; Admin Dose 2 SPRAY; Start 08/31/16 at 09:00 Diagnostic Test (Pha) (Accucheck) XX ; Start 09/01/16 at 02:00 Ondansetron HCl (Zofran Inj) 4 mg Q6H PRN IV NAUSEA AND/OR VOMITING Last administered on 09/17/16 09:39; Admin Dose 4 MG; Start 09/01/16 at 11:30 Acetaminophen (Tylenol Tab) 650 mg Q6H PRN PO PAIN AND OR ELEVATED TEMP Last administered on 09/18/16 20:22; Admin Dose 650 MG; Start 09/01/16 at 11:30 Diphenhydramine HCl (Benadryl) 25 mg Q6H PRN PO ITCHING Last administered on 05:22; Admin Dose 25 MG; Start 09/01/16 at 11:30 Guaifenesin/ Dextromethorphan (Robitussin Dm Liquid Cup) 10 ml Q4H PRN PO COUGH Last administered on 09/19/16 01:05; Admin Dose 10 ML; Start 09/02/16 at 14:00 Allopurinol 300 mg 300 mg DAILY PO Last administered on 09/21/16 08:32; Admin Dose 300 MG; Start 09/04/16 at 16:30 Sodium Chloride (NS) 1,000 ml @ 50 mls/hr Q20H IV Last administered on 05:21; Admin Dose 50 MLS/HR; Start 09/05/16 at 12:00 IV Flush (NS 10 ml) 10 ml PRN PRN IV IV PROTOCOL; Start 09/05/16 at 12:30 Bisacodyl (Dulcolax Supp) 10 mg DAILY PRN [place] CONSTIPATION; Start 09/08/16 at 12 :00 Magnesium Hydroxide (Milk Of Mag) 30 ml DAILY PRN PO CONSTIPATION Last administered on 09/09/16 06:25; Admin Dose 30 ML; Start 09/08/16 at 12:00 Polyethylene Glycol (Miralax) 17 gm DAILY PO Last administered on 09/21/16 08: 31; Admin Dose 17 GM; Start 09/08/16 at 12:00 Docusate Sodium (Colace) 100 mg BID PO Last administered on 09/21/16 08:32; Admin Dose 100 MG; Start 09/08/16 at 21:00 Phenol (Cepastat Lozenge) 1 lozenge Q1H PRN [place] SORE THROAT Last administered on 09/17/16 20:16; Admin Dose 1 LOZENGE; Start 09/08/16 at 12:00 Amlodipine Besylate (Norvasc) 5 mg QHS PO Last administered on 09/20/16 20:46 ; Admin Dose 5 MG; Start 09/11/16 at 21:00 Miscellaneous Medication (Bax Susp) 30 ml QID PO Last administered on 08:31; Admin Dose 30 ML; Start 09/13/16 at 13:00 Nystatin (Nystatin Susp) 5 ml QID PO Last administered on 09/21/16 08:31; Admin Dose 5 ML; Start 09/14/16 at 17:00 Insulin Glargine (Lantus) 7.5 unit QHS SC Last administered on 09/20/16 20:53 ; Admin Dose 7.5 UNIT; Start 09/18/16 at 21:00 Pantoprazole (Protonix Iv) 40 mg DAILY@06 IV Last administered on 09/21/16 10: 29; Admin Dose 40 MG; Start 09/21/16 at 10:00 LANNY LUX MD Sep 21, 2016 12:48
--- NOTE | 2016-09-21 16:12 | PN ---
Date/Time of Note Date/Time of Note DATE: 09/21/16 TIME: 16:06 Assessment/Plan VTE Prophylaxis VTE Prophylaxis Intervention: SCD's VTE Contraindication Reason: bleeding Lines/Catheters IV Catheter Type (from Nrsg): Central Line Central line still needed: No Urinary Cath still in place: No Assessment/Plan Assessment/Plan 71 yo male with: 1. 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 he is receiving his platelet transfusion today. No further bleeding. Case d/w Dr. Gallegos this weekend. 2. Diabetes mellitus, with associated neuropathy manifest by numbness in both feet. Previous clinical suspicion for diabetic gastroparesis. He has moderate hyperglycemia this time, for reasons unclear. No solis source of infection identified, and he has no fever. BG stable on current dosing of Lantus at 15 units qhs and continue SSI. Zofran as needed for Nausea likely chemo related at this point 3. Hematemesis: Protonix IV BID now and GI consult (Dr. John) in the AM. 4. Chronic benign positional vertigo. Continue Meclizine PRN 5. Gastroesophageal reflux disease. Continue Protonix 6. URI with cough and sore throat: CXR stable on admission, symptomatic treatment. 7. Hypertension: Good control on norvasc. 8. Oral mucosa irritation, cold sore and odynophagia: Continue Abreva and mouth wash, Nystatin. improving 9. Case d/w daughter Mariangel over the phone and updated her on her father's condition. Prophylaxis. Sequential compression devices to lower extremity for DVT prevention, PPI for GI ppx DISPOSITION: S/p induction chemo, following counts, still neutropenic/ pancytopenic requiring close monitoring and blood product transfusion as needed. Bone Marrow bx done at bedside yesterday, f/u pathology next week. Subjective 24 Hr Interval Summary Free Text/Dictation Had one episode of nausea and hematemesis. Resolved with anti-emetic. Platelet count is 6 today and hgb is low as well. He is receiving platelets and irradiated PRBCs now. No further episodes. Exam/Review of Systems Vital Signs Vitals Vital Signs Date Time Temp Pulse Resp B/P Pulse Ox O2 Delivery O2 Flow Rate FiO2 09/21/16 08:05 98.1 87 18 150/78 96 09/19/16 14:18 Room Air Intake and Output 09/20/16 09/20/16 09/21/16 15:00 23:00 07:00 Intake Total 1780 ml 2060 ml Output Total 1500 ml 1180 ml Balance 280 ml 880 ml Exam Constitutional: alert, oriented Head: normocephalic Eyes: nl conjunctiva ENMT: nl external ears & nose Neck: supple Respiratory: clear to auscultation Cardiovascular: regular rate and rhythm Gastrointestinal: soft Musculoskeletal: nl extremities to inspection Results Result Diagram: 09/21/16 04209/21/16 042 Results 24 hrs Laboratory Tests Test 09/20/16 16:52 09/20/16 20:44 09/21/16 04:25 09/21/16 08:11 Bedside Glucose 136 160 261 H Alanine Aminotransferase (ALT/SGPT) 22 Albumin 2.7 L Albumin/Globulin Ratio 0.64 Alkaline Phosphatase 75 Anion Gap 12 Anisocytosis 1+ Aspartate Amino Transf (AST/SGOT) 14 L Band Neutrophils % 2.0 Basophils # 0.0 Basophils % 1.0 Blood Morphology Comment Blood Urea Nitrogen 17 Calcium Level 8.4 Carbon Dioxide Level 27 Chloride Level 99 Creatinine 0.64 Differential Comment MANUAL DIFF Direct Bilirubin 0.00 Eosinophils # 0.1 Eosinophils % 4.0 Globulin 4.20 H Glucose Level 161 Hematocrit 21.0 L Hemoglobin 7.5 L Indirect Bilirubin 0.3 Lactate Dehydrogenase 441 Lymphocytes # 0.9 Lymphocytes % 28.0 Mean Corpuscular Hemoglobin 29.5 Mean Corpuscular Hemoglobin Concent 35.8 Mean Corpuscular Volume 82.3 Mean Platelet Volume 7.6 Monocytes # 1.4 H Monocytes % 45.0 H Neutrophils # 0.6 L Neutrophils % 20.0 L Nucleated Red Blood Cells # Nucleated Red Blood Cells % Platelet Count 6 #*L Platelet Estimate PLT APPEAR DECREASED Potassium Level 4.0 Red Blood Count 2.55 L Red Cell Distribution Width 15.7 H Sodium Level 134 L Total Bilirubin 0.3 Total Protein 6.9 Uric Acid 1.6 L White Blood Count 3.1 L Test 09/21/16 12:08 Bedside Glucose 139 Medications Medications Current Medications Miscellaneous Information 1 ea NOTE XX ; Start 08/31/16 at 02:00 Glucose (Glutose) 15 gm Q15M PRN PO DECREASED GLUCOSE; Start 08/31/16 at 02:00 Glucose (Glutose) 22.5 gm Q15M PRN PO DECREASED GLUCOSE; Start 08/31/16 at 02:00 Dextrose (D50w Syringe) 25 ml Q15M PRN IV DECREASED GLUCOSE; Start 08/31/16 at 02:00 Dextrose (D50w Syringe) 50 ml Q15M PRN IV DECREASED GLUCOSE; Start 08/31/16 at 02:00 Glucagon (Glucagen) 1 mg Q15M PRN IM DECREASED GLUCOSE; Start 08/31/16 at 02:00 Glucose (Glutose) 15 gm Q15M PRN BUCCAL DECREASED GLUCOSE; Start 08/31/16 at 02: 00 Fluticasone Propionate (Flonase 0.05% Nasal) 2 spray DAILY NASAL Last administered on 09/21/16 08:31; Admin Dose 2 SPRAY; Start 08/31/16 at 09:00 Diagnostic Test (Pha) (Accucheck) 1 ea 02 XX ; Start 09/01/16 at 02:00 Ondansetron HCl (Zofran Inj) 4 mg Q6H PRN IV NAUSEA AND/OR VOMITING Last administered on 09/17/16 09:39; Admin Dose 4 MG; Start 09/01/16 at 11:30 Acetaminophen (Tylenol Tab) 650 mg Q6H PRN PO PAIN AND OR ELEVATED TEMP Last administered on 09/18/16 20:22; Admin Dose 650 MG; Start 09/01/16 at 11:30 Diphenhydramine HCl (Benadryl) 25 mg Q6H PRN PO ITCHING Last administered on 05:22; Admin Dose 25 MG; Start 09/01/16 at 11:30 Guaifenesin/ Dextromethorphan (Robitussin Dm Liquid Cup) 10 ml Q4H PRN PO COUGH Last administered on 09/19/16 01:05; Admin Dose 10 ML; Start 09/02/16 at 14:00 Allopurinol 300 mg 300 mg DAILY PO Last administered on 09/21/16 08:32; Admin Dose 300 MG; Start 09/04/16 at 16:30 Sodium Chloride (NS) 1,000 ml @ 50 mls/hr Q20H IV Last administered on 05:21; Admin Dose 50 MLS/HR; Start 09/05/16 at 12:00 IV Flush (NS 10 ml) 10 ml PRN PRN IV IV PROTOCOL; Start 09/05/16 at 12:30 Bisacodyl (Dulcolax Supp) 10 mg DAILY PRN [place] CONSTIPATION; Start 09/08/16 at 12 :00 Magnesium Hydroxide (Milk Of Mag) 30 ml DAILY PRN PO CONSTIPATION Last administered on 09/09/16 06:25; Admin Dose 30 ML; Start 09/08/16 at 12:00 Polyethylene Glycol (Miralax) 17 gm DAILY PO Last administered on 09/21/16 08: 31; Admin Dose 17 GM; Start 09/08/16 at 12:00 Docusate Sodium (Colace) 100 mg BID PO Last administered on 09/21/16 08:32; Admin Dose 100 MG; Start 09/08/16 at 21:00 Phenol (Cepastat Lozenge) 1 lozenge Q1H PRN MT SORE THROAT Last administered on 09/17/16 20:16; Admin Dose 1 LOZENGE; Start 09/08/16 at 12:00 Amlodipine Besylate (Norvasc) 5 mg QHS PO Last administered on 09/20/16 20:46 ; Admin Dose 5 MG; Start 09/11/16 at 21:00 Miscellaneous Medication (Bax Susp) 30 ml QID PO Last administered on 12:44; Admin Dose 30 ML; Start 09/13/16 at 13:00 Nystatin (Nystatin Susp) 5 ml QID PO Last administered on 09/21/16 12:44; Admin Dose 5 ML; Start 09/14/16 at 17:00 Insulin Glargine (Lantus) 7.5 unit QHS SC Last administered on 09/20/16 20:53 ; Admin Dose 7.5 UNIT; Start 09/18/16 at 21:00 Pantoprazole (Protonix Iv) 40 mg BID IV ; Start 09/21/16 at 21:00 GIOVANNY PALM MD Sep 21, 2016 16:12
[2016-09-21 20:32] VITALS: BP 134/59; RESP 18
[2016-09-21] MEDS: PANTOPRAZOLE 40 MG INJ IV SCH (20:43)
[2016-09-21] MEDS: AMLODIPINE 5 MG TAB PO SCH (20:44)
[2016-09-21] MEDS: INSULIN GLARGINE [LANtus] 3 ML PEN SC SCH (20:52)
[2016-09-22] MEDS: ACCUCHECK AT 2AM (Patients on SS coverage) XX SCH (02:00)
[2016-09-22] MEDS: SOD CHLORIDE 0.9% 1,000 ML IV SCH ×2 (04:07→23:18)
[2016-09-22 05:24] LABS: HEMATOCRIT 22.6 % (42.0-52.0); MEAN CORPUSCULAR HEMOGLOBIN 29.7 pg (29.0-33.0); MEAN CORPUSCULAR HGB CONC 35.5 g/dl (32.0-37.0); MEAN CORPUSCULAR VOLUME 83.8 fl (82.0-101.0); MEAN PLATELET VOLUME 7.9 fl (7.4-10.4); RED BLOOD COUNT 2.69 10^6/ul (4.70-6.10); RED CELL DISTRIBUTION WIDTH 14.8 % (11.5-14.5); UNCORRECTED WBC 3.9 10^3/ul (4.8-10.8); WHITE BLOOD COUNT 3.9 10^3/ul (4.8-10.8)
[2016-09-22 05:46] LABS: CONDITION 1; SUSPECT 1
[2016-09-22 05:47] LABS: ALBUMIN 2.9 g/dl (3.3-4.9); LH ANALYZER COMMENTS 1
[2016-09-22 05:48] LABS: PLATELET COUNT 27 10^3/UL (140-440)
[2016-09-22 05:49] LABS: URIC ACID 1.6 mg/dl (3.1-7.9)
[2016-09-22 05:50] LABS: ALBUMIN/GLOBULIN RATIO 0.65; BILIRUBIN,INDIRECT 0.6 mg/dl (0-1.1); BILIRUBIN,TOTAL 0.6 mg/dl (0.2-1.3); CREATININE 0.64 mg/dl (0.61-1.24); TOTAL PROTEIN 7.3 g/dl (6.1-8.1)
[2016-09-22 05:51] LABS: CALCIUM 8.4 mg/dl (8.4-10.2)
[2016-09-22] MEDS: ACCUCHECK XX SCH (07:50)
[2016-09-22 07:55] LABS: BASOPHIL # 0.1 10^3/ul (0.0-0.1); EOSINOPHILS # 0.1 10^3/ul (0.0-0.5); LYMPHOCYTES # 1.2 10^3/ul (0.8-2.9); MONOCYTE # 2.3 10^3/ul (0.3-0.9); NEUTROPHIL # 0.1 10^3/ul (1.6-7.5)
[2016-09-22 08:25] VITALS: BP 134/63; RESP 20
[2016-09-22] MEDS: DIPHENHYD PO SCH ×4 (09:33→22:29)
[2016-09-22] MEDS: POLYETHYLENE GLYCOL 17 GM PACKET PO SCH (09:33)
[2016-09-22] MEDS: NYSTATIN SUSP 5 ML CUP PO SCH ×4 (09:33→21:00)
[2016-09-22] MEDS: MYLANTA PO SCH ×4 (09:33→22:29)
[2016-09-22] MEDS: DOCUSATE SODIUM 100 MG CAP PO SCH ×2 (09:33→21:00)
[2016-09-22] MEDS: LIDO PO SCH ×4 (09:33→22:29)
[2016-09-22] MEDS: ALLOPURINOL 300 MG TAB PO SCH (09:33)
[2016-09-22] MEDS: PANTOPRAZOLE 40 MG INJ IV SCH (09:34)
[2016-09-22] MEDS: FLUTICASONE 0.05% 16 GM NAS SPRAY NASAL SCH (09:34)
[2016-09-22] MEDS: INSULIN ASPART [NOVOLOG] 3 ML PEN SC SCH ×6 (09:35→21:03)
[2016-09-22] MEDS: GUAIFENESIN/DM 5ML CUP PO PRN (09:40)
[2016-09-22] MEDS: SUCRALFATE 1 GM TAB PO SCH ×4 (09:40→21:00)
--- NOTE | 2016-09-22 10:20 | PN ---
Date/Time of Note Date/Time of Note DATE: 09/22/16 TIME: 10:19 Assessment/Plan VTE Prophylaxis VTE Prophylaxis Intervention: SCD's Lines/Catheters IV Catheter Type (from Nrsg): PICC Line Central line still needed: Yes (for IV access ) Urinary Cath still in place: No Assessment/Plan Assessment/Plan 71 yo male with: 1. 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 Follow up Hematology recs today. 2. Hematemesis: Agree with Protonix IV BID, no further episode so far and GI consult (Dr. John) for this AM. 3. Diabetes mellitus, with associated neuropathy manifest by numbness in both feet. Previous clinical suspicion for diabetic gastroparesis. BG better controlled. BG stable on current dosing of Lantus at 15 units qhs and continue SSI. Zofran as needed for Nausea likely chemo related at this point. 4. Chronic benign positional vertigo. Continue Meclizine PRN 5. Gastroesophageal reflux disease. Continue Protonix 6. URI with cough and sore throat: CXR stable on admission, symptomatic treatment. 7. Hypertension: on Norvasc. 8. Oral mucosa irritation, cold sore and odynophagia: Continue Abreva and mouth wash, Nystatin. improving Prophylaxis. Sequential compression devices to lower extremity for DVT prevention, PPI for GI ppx DISPOSITION: S/p induction chemo, following counts, still pancytopenic requiring close monitoring and blood product transfusion dependent so far. Bone Marrow bx 09/19, f/u pathology this week. OOB to chair at least 3x/day Subjective 24 Hr Interval Summary Free Text/Dictation No hematemesis overnight and tolerating some po. Counts better this AM s/p pRBC and platelets over past 24 hrs Afebrile, needs PT Exam/Review of Systems Vital Signs Vitals Vital Signs Date Time Temp Pulse Resp B/P Pulse Ox O2 Delivery O2 Flow Rate FiO2 09/22/16 08:25 98.2 86 20 134/63 99 09/19/16 14:18 Room Air Intake and Output 09/21/16 09/21/16 09/22/16 14:59 22:59 06:59 Intake Total 2490 ml 1080 ml Output Total 2100 ml 1125 ml Balance 390 ml -45 ml Exam Constitutional: alert, frail, oriented, well developed Respiratory: clear to auscultation, normal air movement Cardiovascular: nl pulses, regular rate and rhythm Gastrointestinal: non-tender, soft Musculoskeletal: nl extremities to inspection Extremities: normal pulses, other (no edema, clubbing or cyanosis ) Neurological: DRIER TENDER II-XII intact, nl mental status, nl speech, nl strength Results Result Diagram: 09/22/1642309/22/164 Results 24 hrs Laboratory Tests Test 09/21/16 12:08 09/21/16 17:17 09/21/16 20:41 09/22/16 04:24 Bedside Glucose 139 211 160 Alanine Aminotransferase (ALT/SGPT) 26 Albumin 2.9 L Albumin/Globulin Ratio 0.65 Alkaline Phosphatase 83 Anion Gap 14 Aspartate Amino Transf (AST/SGOT) 18 Basophils # 0.1 Basophils % 2.0 Blood Morphology Comment Blood Urea Nitrogen 21 H Calcium Level 8.4 Carbon Dioxide Level 24 Chloride Level 101 Creatinine 0.64 Direct Bilirubin 0.00 Eosinophils # 0.1 Eosinophils % 3.0 Globulin 4.40 H Glucose Level 133 Hematocrit 22.6 L Hemoglobin 8.0 L Indirect Bilirubin 0.6 Lactate Dehydrogenase 589 Lymphocytes # 1.2 Lymphocytes % 32.0 Mean Corpuscular Hemoglobin 29.7 Mean Corpuscular Hemoglobin Concent 35.5 Mean Corpuscular Volume 83.8 Mean Platelet Volume 7.9 Monocytes # 2.3 H Monocytes % 60.0 H Neutrophils # 0.1 L Neutrophils % 3.0 L Nucleated Red Blood Cells # Nucleated Red Blood Cells % Platelet Count 27 #*L Potassium Level 4.0 Red Blood Count 2.69 L Red Cell Distribution Width 14.8 H Sodium Level 135 Total Bilirubin 0.6 Total Protein 7.3 Uric Acid 1.6 L White Blood Count 3.9 #L Test 09/22/16 07:48 Bedside Glucose 219 Medications Medications Current Medications Miscellaneous Information 1 ea NOTE XX ; Start 08/31/16 at 02:00 Glucose (Glutose) 15 gm Q15M PRN PO DECREASED GLUCOSE; Start 08/31/16 at 02:00 Glucose (Glutose) 22.5 gm Q15M PRN PO DECREASED GLUCOSE; Start 08/31/16 at 02:00 Dextrose (D50w Syringe) 25 ml Q15M PRN IV DECREASED GLUCOSE; Start 08/31/16 at 02:00 Dextrose (D50w Syringe) 50 ml Q15M PRN IV DECREASED GLUCOSE; Start 08/31/16 at 02:00 Glucagon (Glucagen) 1 mg Q15M PRN IM DECREASED GLUCOSE; Start 08/31/16 at 02:00 Glucose (Glutose) 15 gm Q15M PRN BUCCAL DECREASED GLUCOSE; Start 08/31/16 at 02: 00 Fluticasone Propionate (Flonase 0.05% Nasal) 2 spray DAILY NASAL Last administered on 09/22/16 09:34; Admin Dose 2 SPRAY; Start 08/31/16 at 09:00 Diagnostic Test (Pha) (Accucheck) 1 ea 02 XX ; Start 09/01/16 at 02:00 Ondansetron HCl (Zofran Inj) 4 mg Q6H PRN IV NAUSEA AND/OR VOMITING Last administered on 09/17/16 09:39; Admin Dose 4 MG; Start 09/01/16 at 11:30 Acetaminophen (Tylenol Tab) 650 mg Q6H PRN PO PAIN AND OR ELEVATED TEMP Last administered on 09/18/16 20:22; Admin Dose 650 MG; Start 09/01/16 at 11:30 Diphenhydramine HCl (Benadryl) 25 mg Q6H PRN PO ITCHING Last administered on 05:22; Admin Dose 25 MG; Start 09/01/16 at 11:30 Guaifenesin/ Dextromethorphan (Robitussin Dm Liquid Cup) 10 ml Q4H PRN PO COUGH Last administered on 09/22/16 09:40; Admin Dose 10 ML; Start 09/02/16 at 14:00 Allopurinol 300 mg 300 mg DAILY PO Last administered on 09/22/16 09:33; Admin Dose 300 MG; Start 09/04/16 at 16:30 Sodium Chloride (NS) 1,000 ml @ 50 mls/hr Q20H IV Last administered on 04:07; Admin Dose 50 MLS/HR; Start 09/05/16 at 12:00 IV Flush (NS 10 ml) 10 ml PRN PRN IV IV PROTOCOL; Start 09/05/16 at 12:30 Bisacodyl (Dulcolax Supp) 10 mg DAILY PRN [place] CONSTIPATION; Start 09/08/16 at 12 :00 Magnesium Hydroxide (Milk Of Mag) 30 ml DAILY PRN PO CONSTIPATION Last administered on 09/09/16 06:25; Admin Dose 30 ML; Start 09/08/16 at 12:00 Polyethylene Glycol (Miralax) 17 gm DAILY PO Last administered on 09/22/16 09: 33; Admin Dose 17 GM; Start 09/08/16 at 12:00 Docusate Sodium (Colace) 100 mg BID PO Last administered on 09/22/16 09:33; Admin Dose 100 MG; Start 09/08/16 at 21:00 Phenol (Cepastat Lozenge) 1 lozenge Q1H PRN MT SORE THROAT Last administered on 09/17/16 20:16; Admin Dose 1 LOZENGE; Start 09/08/16 at 12:00 Amlodipine Besylate (Norvasc) 5 mg QHS PO Last administered on 09/21/16 20:44 ; Admin Dose 5 MG; Start 09/11/16 at 21:00 Miscellaneous Medication (Bax Susp) 30 ml QID PO Last administered on 09:33; Admin Dose 30 ML; Start 09/13/16 at 13:00 Nystatin (Nystatin Susp) 5 ml QID PO Last administered on 09/22/16 09:33; Admin Dose 5 ML; Start 09/14/16 at 17:00 Insulin Glargine (Lantus) 7.5 unit QHS SC Last administered on 09/21/16 20:52 ; Admin Dose 7.5 UNIT; Start 09/18/16 at 21:00 Pantoprazole (Protonix Iv) 40 mg BID IV Last administered on 09/22/16 09:34; Admin Dose 40 MG; Start 09/21/16 at 21:00 TAM ROSE Sep 22, 2016 10:20
[2016-09-22] MEDS ORDERED: Discontinue Glyburide, Glipizide, and/or Glimepiride prior to starting Insulin XX ONE (11:00)
--- NOTE | 2016-09-22 13:26 | CONS ---
Date/Time of Note Date/Time of Note DATE: 09/22/16 TIME: 13:22 Assessment/Plan Assessment/Plan Chief Complaint/Hosp Course 71 yo with CMML who is currently off therapy admitted for symptomatic anemia and thrombocytopenia. 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 Pt has completed 7+3 and tolerated chemotherapy well thus far. Problems: Additional Assessment/Plan -Flow showed 30% blasts on peripheral blood consistent with AML with monocytic component. s/p BMBx 09/04/16, revealing AML (acute myelomonocytic leukemia, M4) , CEBPA mutation detected, negative for NPM1 and negative for FLT3 mutation. 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 Deletion of 5q, monosomy 7 and complexity of the karyotype are associated with poor risk. Given complex cytogenetics, patient may be referred for transplant evaluation as outpatient. -Continue allopurinol -transfuse 2 units PRBC for hgb less than 8, 1 unit platelet for plt count less than 10 which was done today.no transfusion needed today. -Patient will need to stay inpatient for 3-4 weeks to await count recovery and monitor for infection, transfusions, etc. Patient s/p D14 bone marrow 09/19/16 and follow results. -One episode of hematemesis per nursing staff and now s/p 1 unit platelet transfusion and prbc as ordered. Continue PPI -vitals stable now and continue IVF at 50 cc/h Approximately 40 min were spent at patient's bedside and in coordination of her care Consultation Date/Type/Reason Admit Date/Time Aug 31, 2016 at 00:38 Initial Consult Date 09/02/16 Type of Consultation: Hematology/Oncology Reason for Consultation AML Referring Provider: TAM ROSE 24 HR Interval Summary Free Text/Dictation mucositis has improved. patient is very weak Exam/Review of Systems Vital Signs Vitals Vital Signs Date Time Temp Pulse Resp B/P Pulse Ox O2 Delivery O2 Flow Rate FiO2 09/22/16 08:25 98.2 86 20 134/63 99 09/19/16 14:18 Room Air Intake and Output 09/21/16 09/21/16 09/22/16 15:00 23:00 07:00 Intake Total 2490 ml 1080 ml Output Total 2100 ml 1125 ml Balance 390 ml -45 ml Exam Constitutional: alert, distress, frail, oriented Psych: no complaints Head: normocephalic Eyes: nl conjunctiva ENMT: nl external ears & nose Neck: non-tender, supple Respiratory: clear to auscultation, normal air movement Cardiovascular: regular rate and rhythm Gastrointestinal: soft Musculoskeletal: nl extremities to inspection, nl gait and stance Results Result Diagram: 09/22/164 09/22/16 0424 Results 24 hrs Laboratory Tests Test 09/21/16 17:17 09/21/16 20:41 09/22/16 04:24 09/22/16 07:48 Bedside Glucose 211 160 219 Alanine Aminotransferase (ALT/SGPT) 26 Albumin 2.9 L Albumin/Globulin Ratio 0.65 Alkaline Phosphatase 83 Anion Gap 14 Aspartate Amino Transf (AST/SGOT) 18 Basophils # 0.1 Basophils % 2.0 Blood Morphology Comment Blood Urea Nitrogen 21 H Calcium Level 8.4 Carbon Dioxide Level 24 Chloride Level 101 Creatinine 0.64 Direct Bilirubin 0.00 Eosinophils # 0.1 Eosinophils % 3.0 Globulin 4.40 H Glucose Level 133 Hematocrit 22.6 L Hemoglobin 8.0 L Indirect Bilirubin 0.6 Lactate Dehydrogenase 589 Lymphocytes # 1.2 Lymphocytes % 32.0 Mean Corpuscular Hemoglobin 29.7 Mean Corpuscular Hemoglobin Concent 35.5 Mean Corpuscular Volume 83.8 Mean Platelet Volume 7.9 Monocytes # 2.3 H Monocytes % 60.0 H Neutrophils # 0.1 L Neutrophils % 3.0 L Nucleated Red Blood Cells # Nucleated Red Blood Cells % Platelet Count 27 #*L Potassium Level 4.0 Red Blood Count 2.69 L Red Cell Distribution Width 14.8 H Sodium Level 135 Total Bilirubin 0.6 Total Protein 7.3 Uric Acid 1.6 L White Blood Count 3.9 #L Test 09/22/16 11:53 Bedside Glucose 109 Medications Medications Current Medications Miscellaneous Information 1 ea NOTE XX ; Start 08/31/16 at 02:00 Glucose (Glutose) 15 gm Q15M PRN PO DECREASED GLUCOSE; Start 08/31/16 at 02:00 Glucose (Glutose) 22.5 gm Q15M PRN PO DECREASED GLUCOSE; Start 08/31/16 at 02:00 Dextrose (D50w Syringe) 25 ml Q15M PRN IV DECREASED GLUCOSE; Start 08/31/16 at 02:00 Dextrose (D50w Syringe) 50 ml Q15M PRN IV DECREASED GLUCOSE; Start 08/31/16 at 02:00 Glucagon (Glucagen) 1 mg Q15M PRN IM DECREASED GLUCOSE; Start 08/31/16 at 02:00 Glucose (Glutose) 15 gm Q15M PRN BUCCAL DECREASED GLUCOSE; Start 08/31/16 at 02: 00 Fluticasone Propionate (Flonase 0.05% Nasal) 2 spray DAILY NASAL Last administered on 09/22/16 09:34; Admin Dose 2 SPRAY; Start 08/31/16 at 09:00 Ondansetron HCl (Zofran Inj) 4 mg Q6H PRN IV NAUSEA AND/OR VOMITING Last administered on 09/17/16 09:39; Admin Dose 4 MG; Start 09/01/16 at 11:30 Acetaminophen (Tylenol Tab) 650 mg Q6H PRN PO PAIN AND OR ELEVATED TEMP Last administered on 09/18/16 20:22; Admin Dose 650 MG; Start 09/01/16 at 11:30 Diphenhydramine HCl (Benadryl) 25 mg Q6H PRN PO ITCHING Last administered on 05:22; Admin Dose 25 MG; Start 09/01/16 at 11:30 Guaifenesin/ Dextromethorphan (Robitussin Dm Liquid Cup) 10 ml Q4H PRN PO COUGH Last administered on 09/22/16 09:40; Admin Dose 10 ML; Start 09/02/16 at 14:00 Allopurinol 300 mg 300 mg DAILY PO Last administered on 09/22/16 09:33; Admin Dose 300 MG; Start 09/04/16 at 16:30 Sodium Chloride (NS) 1,000 ml @ 50 mls/hr Q20H IV Last administered on 04:07; Admin Dose 50 MLS/HR; Start 09/05/16 at 12:00 IV Flush (NS 10 ml) 10 ml PRN PRN IV IV PROTOCOL; Start 09/05/16 at 12:30 Bisacodyl (Dulcolax Supp) 10 mg DAILY PRN [place] CONSTIPATION; Start 09/08/16 at 12 :00 Magnesium Hydroxide (Milk Of Mag) 30 ml DAILY PRN PO CONSTIPATION Last administered on 09/09/16 06:25; Admin Dose 30 ML; Start 09/08/16 at 12:00 Polyethylene Glycol (Miralax) 17 gm DAILY PO Last administered on 09/22/16 09: 33; Admin Dose 17 GM; Start 09/08/16 at 12:00 Docusate Sodium (Colace) 100 mg BID PO Last administered on 09/22/16 09:33; Admin Dose 100 MG; Start 09/08/16 at 21:00 Phenol (Cepastat Lozenge) 1 lozenge Q1H PRN MT SORE THROAT Last administered on 09/17/16 20:16; Admin Dose 1 LOZENGE; Start 09/08/16 at 12:00 Amlodipine Besylate (Norvasc) 5 mg QHS PO Last administered on 09/21/16 20:44 ; Admin Dose 5 MG; Start 09/11/16 at 21:00 Miscellaneous Medication (Bax Susp) 30 ml QID PO Last administered on 13:06; Admin Dose 30 ML; Start 09/13/16 at 13:00 Nystatin (Nystatin Susp) 5 ml QID PO Last administered on 09/22/16 13:05; Admin Dose 5 ML; Start 09/14/16 at 17:00 Insulin Glargine (Lantus) 7.5 unit QHS SC Last administered on 09/21/16 20:52 ; Admin Dose 7.5 UNIT; Start 09/18/16 at 21:00 Pantoprazole (Protonix Iv) 40 mg BID IV Last administered on 09/22/16 09:34; Admin Dose 40 MG; Start 09/21/16 at 21:00 Diagnostic Test (Pha) (Accucheck) 1 ea 02 XX ; Start 09/23/16 at 02:00 MISHA FOREMAN M.D. Sep 22, 2016 13:26
[2016-09-22] MEDS: PANTOPRAZOLE (EC) 40 MG TAB PO SCH (18:34)
[2016-09-22 19:42] VITALS: BP 142/66; RESP 18
[2016-09-22] MEDS: AMLODIPINE 5 MG TAB PO SCH (21:00)
[2016-09-22] MEDS: INSULIN GLARGINE [LANtus] 3 ML PEN SC SCH (21:02)
[2016-09-23] VITALS (15 sets, daily range): BP systolic 120–149; BP diastolic 55–70; PULSE 91–108; RESP 16–29
[2016-09-23] MEDS: ACCUCHECK XX SCH (02:03)
[2016-09-23] MEDS: ONDANSETRON 4 MG INJ IV PRN (04:23)
[2016-09-23 05:46] LABS: MAGNESIUM 1.9 mg/dl (1.7-2.5); PHOSPHORUS 2.8 mg/dl (2.5-4.9)
[2016-09-23 05:48] LABS: POTASSIUM 3.8 mmol/L (3.5-5.1)
[2016-09-23 05:50] LABS: BILIRUBIN,INDIRECT 0.2 mg/dl (0-1.1); BILIRUBIN,TOTAL 0.2 mg/dl (0.2-1.3); CREATININE 0.58 mg/dl (0.61-1.24)
[2016-09-23 05:51] LABS: ALBUMIN/GLOBULIN RATIO 0.75; CALCIUM 8.2 mg/dl (8.4-10.2)
[2016-09-23] MEDS: PANTOPRAZOLE (EC) 40 MG TAB PO SCH (05:54)
[2016-09-23 06:14] LABS: HEMATOCRIT 21.8 % (42.0-52.0); HEMOGLOBIN 7.7 g/dl (14.0-18.0); MEAN CORPUSCULAR HEMOGLOBIN 30.2 pg (29.0-33.0); MEAN CORPUSCULAR HGB CONC 35.3 g/dl (32.0-37.0); MEAN CORPUSCULAR VOLUME 85.6 fl (82.0-101.0); MEAN PLATELET VOLUME 7.8 fl (7.4-10.4); PLATELET COUNT 52 10^3/UL (140-440); RED BLOOD COUNT 2.55 10^6/ul (4.70-6.10); RED CELL DISTRIBUTION WIDTH 14.6 % (11.5-14.5); UNCORRECTED WBC 3.4 10^3/ul (4.8-10.8); WHITE BLOOD COUNT 3.4 10^3/ul (4.8-10.8)
[2016-09-23 06:48] LABS: NEUTROPHIL # 0.2 10^3/ul (1.6-7.5)
[2016-09-23 06:49] LABS: CONDITION 1; LH ANALYZER COMMENTS 1; SUSPECT 1
[2016-09-23] MEDS: SUCRALFATE 1 GM TAB PO SCH ×4 (07:20→21:00)
[2016-09-23] MEDS: INSULIN ASPART [NOVOLOG] 3 ML PEN SC SCH ×7 (07:50→21:00)
[2016-09-23] MEDS: NYSTATIN SUSP 5 ML CUP PO SCH ×4 (09:00→21:00)
[2016-09-23] MEDS: LIDO PO SCH ×4 (09:00→21:00)
[2016-09-23] MEDS: MYLANTA PO SCH ×4 (09:00→21:00)
[2016-09-23] MEDS: DIPHENHYD PO SCH ×4 (09:00→21:00)
[2016-09-23] MEDS: DOCUSATE SODIUM 100 MG CAP PO SCH ×2 (09:00→21:00)
[2016-09-23] MEDS: FLUTICASONE 0.05% 16 GM NAS SPRAY NASAL SCH (09:00)
[2016-09-23] MEDS: ALLOPURINOL 300 MG TAB PO SCH (09:00)
[2016-09-23] MEDS: POLYETHYLENE GLYCOL 17 GM PACKET PO SCH (09:00)
--- NOTE | 2016-09-23 09:37 | PN ---
Date/Time of Note Date/Time of Note DATE: 09/23/16 TIME: 09:30 Assessment/Plan VTE Prophylaxis VTE Prophylaxis Intervention: SCD's Lines/Catheters IV Catheter Type (from Nrs): PICC Line Central line still needed: Yes (for IV access ) Urinary Cath still in place: No Assessment/Plan Assessment/Plan 71 yo male with: 1. 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 Patient also with nausea and on/off poor po intake, also loosing his hair Follow up Hematology recs today. 2. Hematemesis: Agree with Protonix IV BID, no further episode so far and plan for EGD today with Dr John, patient had also previous clinical suspicion for diabetic gastroparesis 3. Diabetes mellitus, with associated neuropathy manifest by numbness in both feet. BG better controlled. BG stable on current dosing of Lantus at 15 units qhs and continue SSI. Zofran as needed for Nausea likely chemo related at this point. 4. Chronic benign positional vertigo. Continue Meclizine PRN 5. Gastroesophageal reflux disease. Continue Protonix 6. URI with cough and sore throat: CXR stable on admission, symptomatic treatment. 7. Hypertension: on Norvasc. 8. Oral mucosa irritation, cold sore and odynophagia: Continue Abreva and mouth wash, Nystatin. improving Prophylaxis. Sequential compression devices to lower extremity for DVT prevention, PPI for GI ppx DISPOSITION: S/p induction chemo, following counts, still pancytopenic requiring close monitoring and blood product transfusion dependent so far. Bone Marrow bx 09/19, f/u pathology this week and EGD planned for today. OOB to chair at least 3x/day Subjective 24 Hr Interval Summary Free Text/Dictation Patient doing OK, Afebrile and resolving neutropenia actually Complaining of NPO status for EGD today and daughter also had various concerns that were all addressed on the phone Still awaiting pathology results Exam/Review of Systems Vital Signs Vitals Vital Signs Date Time Temp Pulse Resp B/P Pulse Ox O2 Delivery O2 Flow Rate FiO2 09/23/16 08:39 98.2 92 16 139/64 98 09/19/16 14:18 Room Air Intake and Output 09/22/16 09/22/16 09/23/16 15:00 23:00 07:00 Intake Total 1400 ml 900 ml Output Total 1850 ml 1900 ml Balance -450 ml -1000 ml Exam Constitutional: alert, frail, oriented Respiratory: clear to auscultation, normal air movement Cardiovascular: nl pulses, regular rate and rhythm Gastrointestinal: non-tender, soft Musculoskeletal: nl extremities to inspection, other (no edema, clubbing or cyanosis ) Extremities: normal pulses Neurological: [employer] II-XII intact, nl mental status, nl speech, other ( generalised weakness ) Results Result Diagram: 09/23/165 09/23/168 Results 24 hrs Laboratory Tests Test 09/22/16 11:53 09/22/16 17:38 09/22/16 20:59 09/23/16 02:01 Bedside Glucose 109 147 182 118 Test 09/23/16 04:25 09/23/16 04:28 09/23/16 08:00 Basophils # Pending Basophils % Pending Blood Morphology Comment Eosinophils # Pending Eosinophils % Pending Hematocrit 21.8 L Hemoglobin 7.7 L Lymphocytes # Pending Lymphocytes % Pending Magnesium Level 1.9 Mean Corpuscular Hemoglobin 30.2 Mean Corpuscular Hemoglobin Concent 35.3 Mean Corpuscular Volume 85.6 Mean Platelet Volume 7.8 Monocytes # Pending Monocytes % Pending Neutrophils # Pending Neutrophils % Pending Nucleated Red Blood Cells # Pending Nucleated Red Blood Cells % Pending Phosphorus Level 2.8 Platelet Count 52 #L Red Blood Count 2.55 L Red Cell Distribution Width 14.6 H White Blood Count 3.4 L Alanine Aminotransferase (ALT/SGPT) 32 Albumin 3.0 L Albumin/Globulin Ratio 0.75 Alkaline Phosphatase 90 Anion Gap 12 Aspartate Amino Transf (AST/SGOT) 20 Blood Urea Nitrogen 11 # Calcium Level 8.2 L Carbon Dioxide Level 26 Chloride Level 99 Creatinine 0.58 L Direct Bilirubin 0.00 Globulin 4.00 H Glucose Level 106 Indirect Bilirubin 0.2 Potassium Level 3.8 Sodium Level 133 L Total Bilirubin 0.2 Total Protein 7.0 Bedside Glucose 127 Medications Medications Current Medications Miscellaneous Information 1 ea NOTE XX ; Start 08/31/16 at 02:00 Glucose (Glutose) 15 gm Q15M PRN PO DECREASED GLUCOSE; Start 08/31/16 at 02:00 Glucose (Glutose) 22.5 gm Q15M PRN PO DECREASED GLUCOSE; Start 08/31/16 at 02:00 Dextrose (D50w Syringe) 25 ml Q15M PRN IV DECREASED GLUCOSE; Start 08/31/16 at 02:00 Dextrose (D50w Syringe) 50 ml Q15M PRN IV DECREASED GLUCOSE; Start 08/31/16 at 02:00 Glucagon (Glucagen) 1 mg Q15M PRN IM DECREASED GLUCOSE; Start 08/31/16 at 02:00 Glucose (Glutose) 15 gm Q15M PRN BUCCAL DECREASED GLUCOSE; Start 08/31/16 at 02: 00 Fluticasone Propionate (Flonase 0.05% Nasal) 2 spray DAILY NASAL Last administered on 09/22/16 09:34; Admin Dose 2 SPRAY; Start 08/31/16 at 09:00 Ondansetron HCl (Zofran Inj) 4 mg Q6H PRN IV NAUSEA AND/OR VOMITING Last administered on 09/23/16 04:23; Admin Dose 4 MG; Start 09/01/16 at 11:30 Acetaminophen (Tylenol Tab) 650 mg Q6H PRN PO PAIN AND OR ELEVATED TEMP Last administered on 09/18/16 20:22; Admin Dose 650 MG; Start 09/01/16 at 11:30 Diphenhydramine HCl (Benadryl) 25 mg Q6H PRN PO ITCHING Last administered on 05:22; Admin Dose 25 MG; Start 09/01/16 at 11:30 Guaifenesin/ Dextromethorphan (Robitussin Dm Liquid Cup) 10 ml Q4H PRN PO COUGH Last administered on 09/22/16 09:40; Admin Dose 10 ML; Start 09/02/16 at 14:00 Allopurinol 300 mg 300 mg DAILY PO Last administered on 09/22/16 09:33; Admin Dose 300 MG; Start 09/04/16 at 16:30 Sodium Chloride (NS) 1,000 ml @ 50 mls/hr Q20H IV Last administered on 23:18; Admin Dose 50 MLS/HR; Start 09/05/16 at 12:00 IV Flush (NS 10 ml) 10 ml PRN PRN IV IV PROTOCOL; Start 09/05/16 at 12:30 Bisacodyl (Dulcolax Supp) 10 mg DAILY PRN [place] CONSTIPATION; Start 09/08/16 at 12 :00 Magnesium Hydroxide (Milk Of Mag) 30 ml DAILY PRN PO CONSTIPATION Last administered on 09/09/16 06:25; Admin Dose 30 ML; Start 09/08/16 at 12:00 Polyethylene Glycol (Miralax) 17 gm DAILY PO Last administered on 09/22/16 09: 33; Admin Dose 17 GM; Start 09/08/16 at 12:00 Docusate Sodium (Colace) 100 mg BID PO Last administered on 09/22/16 21:00; Admin Dose 100 MG; Start 09/08/16 at 21:00 Phenol (Cepastat Lozenge) 1 lozenge Q1H PRN MT SORE THROAT Last administered on 09/17/16 20:16; Admin Dose 1 LOZENGE; Start 09/08/16 at 12:00 Amlodipine Besylate (Norvasc) 5 mg QHS PO Last administered on 09/22/16 21:00 ; Admin Dose 5 MG; Start 09/11/16 at 21:00 Miscellaneous Medication (Bax Susp) 30 ml QID PO Last administered on 22:29; Admin Dose 30 ML; Start 09/13/16 at 13:00 Nystatin (Nystatin Susp) 5 ml QID PO Last administered on 09/22/16 21:00; Admin Dose 5 ML; Start 09/14/16 at 17:00 Insulin Glargine (Lantus) 7.5 unit QHS SC Last administered on 09/22/16 21:02 ; Admin Dose 7.5 UNIT; Start 09/18/16 at 21:00 Diagnostic Test (Pha) (Accucheck) 1 ea 02 XX Last administered on 09/23/16 02: 03; Admin Dose 1 EA; Start 09/23/16 at 02:00 Pantoprazole (Protonix Tab) 40 mg BID@,18 PO Last administered on 09/22/16 18:34; Admin Dose 40 MG; Start 09/22/16 at 18:00 TAM ROSE Sep 23, 2016 09:37
--- NOTE | 2016-09-23 12:21 | CONS ---
Date/Time of Note Date/Time of Note DATE: 09/23/16 TIME: 12:13 Assessment/Plan Assessment/Plan Chief Complaint/Hosp Course 71 yo with CMML who is currently off therapy admitted for symptomatic anemia and thrombocytopenia. 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 Pt has completed 7+3 and tolerated chemotherapy well thus far. Preliminary report of Day 14 bone marrow still shows residual disease. Will need to speak with patient's primary oncologist Dr. Gallegos as to whether we need to re-induce the patient with chemotherapy. Problems: Additional Assessment/Plan -given poor risk MAL and day 14 bone marrow with residual disease will need to decide on whether to re-induce the patient with 7+3 or proceed with Vidaza hypomethylating agent. -Continue allopurinol -given hematemesis, pt scheduled for EGD today -patient will need to stay inpatient for 3-4 weeks to await count recovery and monitor for infection, transfusions, etc. -vitals stable now and continue IVF at 50 cc/h Approximately 40 min were spent at patient's bedside and in coordination of her care Consultation Date/Type/Reason Admit Date/Time Aug 31, 2016 at 00:38 Initial Consult Date 09/02/16 Type of Consultation: Hematology/Oncology Reason for Consultation AML Referring Provider: TAM ROSE 24 HR Interval Summary Free Text/Dictation pt to have EGD today. no more episodes of hematemesis. started on protonix gtt Exam/Review of Systems Vital Signs Vitals Vital Signs Date Time Temp Pulse Resp B/P Pulse Ox O2 Delivery O2 Flow Rate FiO2 09/23/16 08:39 98.2 92 16 139/64 98 09/19/16 14:18 Room Air Intake and Output 09/22/16 09/22/16 09/23/16 15:00 23:00 07:00 Intake Total 1400 ml 900 ml Output Total 1850 ml 1900 ml Balance -450 ml -1000 ml Exam Constitutional: alert, frail, oriented Psych: anxiety, depression Eyes: nl conjunctiva ENMT: nl external ears & nose Neck: non-tender, supple Respiratory: clear to auscultation Cardiovascular: nl pulses, regular rate and rhythm Gastrointestinal: soft Musculoskeletal: nl extremities to inspection, nl gait and stance Results Result Diagram: 09/23/16 0425 09/23/16 0428 Results 24 hrs Laboratory Tests Test 09/22/16 17:38 09/22/16 20:59 09/23/16 02:01 09/23/16 04:25 Bedside Glucose 147 182 118 Basophils # Pending Basophils % Pending Blood Morphology Comment Eosinophils # Pending Eosinophils % Pending Hematocrit 21.8 L Hemoglobin 7.7 L Lymphocytes # Pending Lymphocytes % Pending Magnesium Level 1.9 Mean Corpuscular Hemoglobin 30.2 Mean Corpuscular Hemoglobin Concent 35.3 Mean Corpuscular Volume 85.6 Mean Platelet Volume 7.8 Monocytes # Pending Monocytes % Pending Neutrophils # Pending Neutrophils % Pending Nucleated Red Blood Cells # Pending Nucleated Red Blood Cells % Pending Phosphorus Level 2.8 Platelet Count 52 #L Red Blood Count 2.55 L Red Cell Distribution Width 14.6 H White Blood Count 3.4 L Test 09/23/16 04:28 09/23/16 08:00 09/23/16 11:51 Alanine Aminotransferase (ALT/SGPT) 32 Albumin 3.0 L Albumin/Globulin Ratio 0.75 Alkaline Phosphatase 90 Anion Gap 12 Aspartate Amino Transf (AST/SGOT) 20 Blood Urea Nitrogen 11 # Calcium Level 8.2 L Carbon Dioxide Level 26 Chloride Level 99 Creatinine 0.58 L Direct Bilirubin 0.00 Globulin 4.00 H Glucose Level 106 Indirect Bilirubin 0.2 Potassium Level 3.8 Sodium Level 133 L Total Bilirubin 0.2 Total Protein 7.0 Bedside Glucose 127 148 Medications Medications Current Medications Miscellaneous Information 1 ea NOTE XX ; Start 08/31/16 at 02:00 Glucose (Glutose) 15 gm Q15M PRN PO DECREASED GLUCOSE; Start 08/31/16 at 02:00 Glucose (Glutose) 22.5 gm Q15M PRN PO DECREASED GLUCOSE; Start 08/31/16 at 02:00 Dextrose (D50w Syringe) 25 ml Q15M PRN IV DECREASED GLUCOSE; Start 08/31/16 at 02:00 Dextrose (D50w Syringe) 50 ml Q15M PRN IV DECREASED GLUCOSE; Start 08/31/16 at 02:00 Glucagon (Glucagen) 1 mg Q15M PRN IM DECREASED GLUCOSE; Start 08/31/16 at 02:00 Glucose (Glutose) 15 gm Q15M PRN BUCCAL DECREASED GLUCOSE; Start 08/31/16 at 02: 00 Fluticasone Propionate (Flonase 0.05% Nasal) 2 spray DAILY NASAL Last administered on 09/22/16 09:34; Admin Dose 2 SPRAY; Start 08/31/16 at 09:00 Ondansetron HCl (Zofran Inj) 4 mg Q6H PRN IV NAUSEA AND/OR VOMITING Last administered on 09/23/16 04:23; Admin Dose 4 MG; Start 09/01/16 at 11:30 Acetaminophen (Tylenol Tab) 650 mg Q6H PRN PO PAIN AND OR ELEVATED TEMP Last administered on 09/18/16 20:22; Admin Dose 650 MG; Start 09/01/16 at 11:30 Diphenhydramine HCl (Benadryl) 25 mg Q6H PRN PO ITCHING Last administered on 05:22; Admin Dose 25 MG; Start 09/01/16 at 11:30 Guaifenesin/ Dextromethorphan (Robitussin Dm Liquid Cup) 10 ml Q4H PRN PO COUGH Last administered on 09/22/16 09:40; Admin Dose 10 ML; Start 09/02/16 at 14:00 Allopurinol 300 mg 300 mg DAILY PO Last administered on 09/22/16 09:33; Admin Dose 300 MG; Start 09/04/16 at 16:30 Sodium Chloride (NS) 1,000 ml @ 50 mls/hr Q20H IV Last administered on 23:18; Admin Dose 50 MLS/HR; Start 09/05/16 at 12:00 IV Flush (NS 10 ml) 10 ml PRN PRN IV IV PROTOCOL; Start 09/05/16 at 12:30 Bisacodyl (Dulcolax Supp) 10 mg DAILY PRN [place] CONSTIPATION; Start 09/08/16 at 12 :00 Magnesium Hydroxide (Milk Of Mag) 30 ml DAILY PRN PO CONSTIPATION Last administered on 09/09/16 06:25; Admin Dose 30 ML; Start 09/08/16 at 12:00 Polyethylene Glycol (Miralax) 17 gm DAILY PO Last administered on 09/22/16 09: 33; Admin Dose 17 GM; Start 09/08/16 at 12:00 Docusate Sodium (Colace) 100 mg BID PO Last administered on 09/22/16 21:00; Admin Dose 100 MG; Start 09/08/16 at 21:00 Phenol (Cepastat Lozenge) 1 lozenge Q1H PRN MT SORE THROAT Last administered on 09/17/16 20:16; Admin Dose 1 LOZENGE; Start 09/08/16 at 12:00 Amlodipine Besylate (Norvasc) 5 mg QHS PO Last administered on 09/22/16 21:00 ; Admin Dose 5 MG; Start 09/11/16 at 21:00 Miscellaneous Medication (Bax Susp) 30 ml QID PO Last administered on 22:29; Admin Dose 30 ML; Start 09/13/16 at 13:00 Nystatin (Nystatin Susp) 5 ml QID PO Last administered on 09/22/16 21:00; Admin Dose 5 ML; Start 09/14/16 at 17:00 Insulin Glargine (Lantus) 7.5 unit QHS SC Last administered on 09/22/16 21:02 ; Admin Dose 7.5 UNIT; Start 09/18/16 at 21:00 Diagnostic Test (Pha) (Accucheck) 1 ea 02 XX Last administered on 09/23/16 02: 03; Admin Dose 1 EA; Start 09/23/16 at 02:00 Pantoprazole (Protonix Tab) 40 mg BID@,18 PO Last administered on 09/22/16 18:34; Admin Dose 40 MG; Start 09/22/16 at 18:00 MISHA FOREMAN M.D. Sep 23, 2016 12:21
[2016-09-23 13:51] LABS: EOSINOPHILS # 0.1 10^3/ul (0.0-0.5); LYMPHOCYTES # 0.6 10^3/ul (0.8-2.9); MONOCYTE # 2.4 10^3/ul (0.3-0.9)
[2016-09-23] MEDS ORDERED: PROPOFOL 20 ML ONE (13:51)
[2016-09-23 13:52] LABS: PLATELET ESTIMATE PLT APPEAR DECREASED
[2016-09-23] MEDS: ACETAMINOPHEN 325 MG TAB PO PRN (16:58)
--- NOTE | 2016-09-23 17:25 | RADRPT ---
PROCEDURE: XR Chest AP portable CLINICAL INDICATION: Fever TECHNIQUE: An AP portable radiograph of the chest was submitted. COMPARISON: 09/05/2016 FINDINGS: Support Hardware: The left upper extremity PICC catheter is stable in positioning. Cardiovascular: The heart size has decreased but remains mildly enlarged of the aorta appears mildly tortuous and the piriform plantar vasculature is less congested. Lung Phelps: Interstitial prominence is seen extend from the perihilar regions diffuse either lung f ields slightly improved from the previous. Pleural Spaces: No pneumothorax or pleural effusion is identified. Osseous Structures: Moderate degenerative spine changes are again noted. Soft Tissues: Surgical brooke project to the epigastrium. IMPRESSION: 1. The left upper extremity PICC catheter is stable in positioning. 2. Decreased heart size with mild cardiomegaly, mild aortic tortuosity of the pulmonary vasculature less congested. 3. Improving interstitial infiltrates seen diffusely through the lung phelps suspicious for residua l interstitial edema. Physician Nataliia Date Time Electronically viewed and signed by Physician Nataliia on 09/23/2016 17:25 /
[2016-09-23] MEDS ORDERED: ACETAMINOPHEN 650 MG SUPP PR PRN (18:00)
[2016-09-23] MEDS: CEFEPIME 2GM/50 ML (PMX) 50 ML IVPB SCH (18:24)
[2016-09-23] MEDS: PANTOPRAZOLE IV 80 MG in SOD CHLORIDE 0.9% 100 ML IV SCH (20:45)
[2016-09-23] MEDS: SOD CHLORIDE 0.9% 1,000 ML IV SCH (20:45)
[2016-09-23] MEDS: AMLODIPINE 5 MG TAB PO SCH (21:00)
[2016-09-23] MEDS: INSULIN GLARGINE [LANtus] 3 ML PEN SC SCH (21:00)
[2016-09-24] VITALS (19 sets, daily range): BP systolic 121–145; BP diastolic 46–79; PULSE 88–109; RESP 14–26
--- NOTE | 2016-09-24 00:28 | GILP ---
DATE OF PROCEDURE: NAME OF PROCEDURE: Esophagogastroduodenoscopy and hemoclipping of the bleeding gastric ulcer. PREOPERATIVE DIAGNOSIS: The patient presenting with history of hematemesis. POSTOPERATIVE DIAGNOSIS: There is at least a 1 to 1.5 cm ulcer noted below the gastroesophageal glenna ction covered by a clot. This area was hemoclipped. DESCRIPTION OF THE PROCEDURE: After informed written consent was obtained, the patient was asked to lie on the left lateral side. Intravenous anesthesia was given by anesthesiologist, Dr. Mckinney. Evelyn garvin the patient became somnolent, the Olympus video upper endoscope was introduced into the oropharynx , then into the esophagus. Esophagus appeared normal. Scope at this time was advanced into the sto mach. Entire stomach was examined. Minimal gastritis was noted in the stomach; however, the fundus , actually just distal to the GE junction, there is evidence of a 1 to 1.5 cm ulcer noted, which is covered by a clot. Duodenum was examined, which appeared normal. Endoscope at this time was withdr awn to the level of this fundus of the stomach. Multiple Hemoclips were applied to prevent further bleeding from this ulcer. At this time, photographs were obtained and the procedure was terminated. PLAN: Recommend Protonix 8 mg per hour IV drip. Dictated By: ILYA GASCA/MALIK Conf#: [id number] DID#: [id number] CC: SYDNIE ANDREW MD; CESAR ARRIAGA MD; ILYA MCMANUS MD;*End*
--- NOTE | 2016-09-24 00:39 | CONS ---
DATE OF ADMISSION: 08/31/2016 DATE OF CONSULTATION: 09/22/[address] Rose: Thank you for asking me to see Mr. Grove in GI consultation. HISTORY OF PRESENT ILLNESS: As you know, the patient is a 71-year-old gentleman who was ad mitted to the hospital on 08/31/2016 with history of nausea and vomiting, fever, dizziness, and dehy dration. GI consultation is requested because of hematemesis. He is found to have a chronic myeloc ytic leukemia; however, on this admission, bone marrow was done, he was found to have acute myeloid leukemia. The patient vomited blood and hence a consultation is requested. The patient is unable t o give me any history about possible GI problems in the past. REVIEW OF SYSTEMS: Positive for diabetes, history of electrolyte imbalance, chronic benign position al vertigo, history of gastroesophageal reflux disease. PAST MEDICAL HISTORY: Includes chronic myeloid leukemia, pancytopenia, diabetes, neuropathy. PAST SURGICAL HISTORY: None except one that was done 4 months ago. The details are not available. MEDICATIONS: On admission, he was on: 1. Nasonex. 2. Nexium. 3. Zofran. 4. Carafate. 5. Invokamet. 6. Lidocaine. 7. Xyzal. PHYSICAL EXAMINATION: GENERAL: The patient is a 71-year-old gentleman who, at the time of my consultation on , he appeared alert, not in distress. CARDIOVASCULAR: Normal heart sounds. RESPIRATORY: Normal breath sounds. ABDOMEN: Shows soft abdomen with no palpable masses, no tenderness. LABORATORY DATA: On the , his hemoglobin was 6.6, hematocrit 19.1, WBC is 2200, platelet count of 20,000. Subsequently, the platelet count dropped to 6000 as of 09/21/2016. On 09/22/2016, plate let count was 27,000. I discussed with Dr. Misha Foreman and she agreed to give 2 more units of plat elet pheresis. Potassium 3.8, BUN 11, creatinine 0.58. Bilirubin 0.2, AST 20, ALT 32, alkaline phosphatase is 90. IMAGING STUDIES: Shows a chest x-ray showing evidence of a PICC line, decreased heart ____, interst itial infiltrates. CLINICAL IMPRESSION: From the GI standpoint, he has history of upper gastrointestinal bleeding seco ndary to probably thrombocytopenia. Rule out peptic ulcer disease, gastritis, arteriovenous malform ation, etc. Acute myelogenous leukemia, history of chronic myeloid leukemia. PLAN: At this time, recommend continue on Protonix. Recommend upper endoscopy. Recommend platelet transfusion as discussed with Dr. Misha Foreman. Once again, Dr. Rose, thank you for consultation. Dictated By: ILYA MCMANUS MD NC/NTS Conf#: [id number] DID#: [id number] CC: MISHA FOREMAN MD; TAM ROSE MD; SYDNIE ANDREW MD; ILYA MCMANUS MD;*EndCC*
[2016-09-24] MEDS: ACCUCHECK XX SCH (02:00)
[2016-09-24] MEDS: PANTOPRAZOLE IV 80 MG in SOD CHLORIDE 0.9% 100 ML IV SCH ×3 (05:19→23:30)
[2016-09-24] MEDS: CEFEPIME 2GM/50 ML (PMX) 50 ML IVPB SCH ×3 (05:19→21:44)
[2016-09-24 05:36] LABS: ALBUMIN 2.8 g/dl (3.3-4.9); POTASSIUM 3.7 mmol/L (3.5-5.1)
[2016-09-24 05:38] LABS: ALBUMIN/GLOBULIN RATIO 0.68; BILIRUBIN,INDIRECT 0.4 mg/dl (0-1.1); BILIRUBIN,TOTAL 0.4 mg/dl (0.2-1.3); CREATININE 0.66 mg/dl (0.61-1.24); TOTAL PROTEIN 6.9 g/dl (6.1-8.1)
[2016-09-24 05:39] LABS: CALCIUM 8.1 mg/dl (8.4-10.2)
[2016-09-24 05:41] LABS: HEMATOCRIT 23.1 % (42.0-52.0); HEMOGLOBIN 8.1 g/dl (14.0-18.0); MEAN CORPUSCULAR HEMOGLOBIN 30.2 pg (29.0-33.0); MEAN CORPUSCULAR HGB CONC 35.1 g/dl (32.0-37.0); MEAN CORPUSCULAR VOLUME 86.1 fl (82.0-101.0); MEAN PLATELET VOLUME 8.2 fl (7.4-10.4); MONOCYTES % 81.1 % (0.0-11.0); PLATELET COUNT 32 10^3/UL (140-440); RED BLOOD COUNT 2.68 10^6/ul (4.70-6.10); RED CELL DISTRIBUTION WIDTH 14.5 % (11.5-14.5)
[2016-09-24 05:57] LABS: LYMPHOCYTES % 9.9 % (15.0-51.0); NEUTROPHILS % 6.3 % (39.0-77.0)
[2016-09-24 05:58] LABS: CONDITION 1; EOSINOPHILS # 0.1 10^3/ul (0.0-0.5); EOSINOPHILS % 2.7 % (0.0-7.0); LH ANALYZER COMMENTS 1; LYMPHOCYTES # 0.5 10^3/ul (0.8-2.9); MONOCYTE # 4.1 10^3/ul (0.3-0.9); NEUTROPHIL # 0.3 10^3/ul (1.6-7.5); SUSPECT 1
[2016-09-24] MEDS: SUCRALFATE 1 GM TAB PO SCH ×4 (07:20→20:35)
[2016-09-24] MEDS: INSULIN ASPART [NOVOLOG] 3 ML PEN SC SCH ×7 (07:50→22:03)
[2016-09-24] MEDS: DOCUSATE SODIUM 100 MG CAP PO SCH ×2 (08:05→20:31)
[2016-09-24] MEDS: ALLOPURINOL 300 MG TAB PO SCH (08:05)
[2016-09-24] MEDS: DIPHENHYD PO SCH ×4 (08:05→21:00)
[2016-09-24] MEDS: MYLANTA PO SCH ×4 (08:05→21:00)
[2016-09-24] MEDS: POLYETHYLENE GLYCOL 17 GM PACKET PO SCH (08:05)
[2016-09-24] MEDS: LIDO PO SCH ×4 (08:05→21:00)
[2016-09-24] MEDS: NYSTATIN SUSP 5 ML CUP PO SCH ×4 (08:06→20:40)
[2016-09-24] MEDS: FLUTICASONE 0.05% 16 GM NAS SPRAY NASAL SCH (08:47)
[2016-09-24] MEDS ORDERED: SOD CHLORIDE 0.9% 250 ML IV* ONE (11:07)
--- NOTE | 2016-09-24 11:36 | PN ---
Date/Time of Note Date/Time of Note DATE: 09/24/16 TIME: 11:32 Assessment/Plan VTE Prophylaxis VTE Prophylaxis Intervention: other (see pmd note) Assessment/Plan Chief Complaint/Hosp Course a/p persistant gastric ulcer bleeding despite hemoclipping plan needs embolisation and surg consult Problems: Assessment/Plan ir to do embolisation Subjective 24 Hr Interval Summary Free Text/Dictation hematemesis Exam/Review of Systems Vital Signs Vitals Vital Signs Date Time Temp Pulse Resp B/P Pulse Ox O2 Delivery O2 Flow Rate FiO2 09/24/16 07:00 98.7 94 20 127/59 100 09/23/16 23:04 Room Air 09/23/16 14:39 2.0 Intake and Output 09/23/16 09/23/16 09/24/16 15:00 23:00 07:00 Intake Total 30 ml 600 ml 590 ml Output Total 460 ml 550 ml Balance 30 ml 140 ml 40 ml Exam pt vomitted blood s/p egd nhemoclipping of gastric ulcer4 below v gej hb 8.1 cannot do endoscopic treatment any further Results Result Diagram: 09/24/16 0430 09/24/16 0430 Results 24 hrs Laboratory Tests Test 09/23/16 11:51 09/23/16 16:58 09/23/16 20:42 09/24/16 04:30 Bedside Glucose 148 152 146 Alanine Aminotransferase (ALT/SGPT) 30 Albumin 2.8 L Albumin/Globulin Ratio 0.68 Alkaline Phosphatase 94 Anion Gap 14 Aspartate Amino Transf (AST/SGOT) 18 Basophils # 0.0 Basophils % 0.0 Blood Morphology Comment Blood Urea Nitrogen 14 Calcium Level 8.1 L Carbon Dioxide Level 25 Chloride Level 99 Creatinine 0.66 Direct Bilirubin 0.00 Eosinophils # 0.1 Eosinophils % 2.7 Globulin 4.10 H Glucose Level 142 Hematocrit 23.1 L Hemoglobin 8.1 L Indirect Bilirubin 0.4 Lymphocytes # 0.5 L Lymphocytes % 9.9 L Mean Corpuscular Hemoglobin 30.2 Mean Corpuscular Hemoglobin Concent 35.1 Mean Corpuscular Volume 86.1 Mean Platelet Volume 8.2 Monocytes # 4.1 H Monocytes % 81.1 H Neutrophils # 0.3 L Neutrophils % 6.3 L Nucleated Red Blood Cells # 0.0 Nucleated Red Blood Cells % 0.0 Platelet Count 32 #L Potassium Level 3.7 Red Blood Count 2.68 L Red Cell Distribution Width 14.5 Sodium Level 134 L Total Bilirubin 0.4 Total Protein 6.9 White Blood Count 5.0 # Test 09/24/16 08:02 Bedside Glucose 141 Medications Medications Current Medications Miscellaneous Information 1 ea NOTE XX ; Start 08/31/16 at 02:00 Glucose (Glutose) 15 gm Q15M PRN PO DECREASED GLUCOSE; Start 08/31/16 at 02:00 Glucose (Glutose) 22.5 gm Q15M PRN PO DECREASED GLUCOSE; Start 08/31/16 at 02:00 Dextrose (D50w Syringe) 25 ml Q15M PRN IV DECREASED GLUCOSE; Start 08/31/16 at 02:00 Dextrose (D50w Syringe) 50 ml Q15M PRN IV DECREASED GLUCOSE; Start 08/31/16 at 02:00 Glucagon (Glucagen) 1 mg Q15M PRN IM DECREASED GLUCOSE; Start 08/31/16 at 02:00 Glucose (Glutose) 15 gm Q15M PRN BUCCAL DECREASED GLUCOSE; Start 08/31/16 at 02: 00 Fluticasone Propionate (Flonase 0.05% Nasal) 2 spray DAILY NASAL Last administered on 09/24/16 08:47; Admin Dose 2 SPRAY; Start 08/31/16 at 09:00 Ondansetron HCl (Zofran Inj) 4 mg Q6H PRN IV NAUSEA AND/OR VOMITING Last administered on 09/23/16 04:23; Admin Dose 4 MG; Start 09/01/16 at 11:30 Diphenhydramine HCl (Benadryl) 25 mg Q6H PRN PO ITCHING Last administered on 05:22; Admin Dose 25 MG; Start 09/01/16 at 11:30 Guaifenesin/ Dextromethorphan (Robitussin Dm Liquid Cup) 10 ml Q4H PRN PO COUGH Last administered on 09/22/16 09:40; Admin Dose 10 ML; Start 09/02/16 at 14:00 Allopurinol 300 mg 300 mg DAILY PO Last administered on 09/22/16 09:33; Admin Dose 300 MG; Start 09/04/16 at 16:30 Sodium Chloride (NS) 1,000 ml @ 50 mls/hr Q20H IV Last administered on 20:45; Admin Dose 50 MLS/HR; Start 09/05/16 at 12:00 IV Flush (NS 10 ml) 10 ml PRN PRN IV IV PROTOCOL; Start 09/05/16 at 12:30 Bisacodyl (Dulcolax Supp) 10 mg DAILY PRN [place] CONSTIPATION; Start 09/08/16 at 12 :00 Magnesium Hydroxide (Milk Of Mag) 30 ml DAILY PRN [place] CONSTIPATION Last administered on 09/09/16 06:25; Admin Dose 30 ML; Start 09/08/16 at 12:00 Polyethylene Glycol (Miralax) 17 gm DAILY PO Last administered on 09/22/16 09: 33; Admin Dose 17 GM; Start 09/08/16 at 12:00 Docusate Sodium (Colace) 100 mg BID PO Last administered on 09/22/16 21:00; Admin Dose 100 MG; Start 09/08/16 at 21:00 Phenol (Cepastat Lozenge) 1 lozenge Q1H PRN [place] SORE THROAT Last administered on 09/17/16 20:16; Admin Dose 1 LOZENGE; Start 09/08/16 at 12:00 Amlodipine Besylate (Norvasc) 5 mg QHS PO Last administered on 09/22/16 21:00 ; Admin Dose 5 MG; Start 09/11/16 at 21:00 Miscellaneous Medication (Bax Susp) 30 ml QID PO Last administered on 16:55; Admin Dose 30 ML; Start 09/13/16 at 13:00 Nystatin (Nystatin Susp) 5 ml QID PO Last administered on 09/23/16 16:55; Admin Dose 5 ML; Start 09/14/16 at 17:00 Insulin Glargine (Lantus) 7.5 unit QHS SC Last administered on 09/22/16 21:02 ; Admin Dose 7.5 UNIT; Start 09/18/16 at 21:00 Diagnostic Test (Pha) 1 ea 1 ea 02 XX Last administered on 09/23/16 02:03; Admin Dose 1 EA; Start 09/23/16 at 02:00 Cefepime HCl 50 ml @ 100 mls/hr Q8 IVPB Last administered on 09/24/16 05:19; Admin Dose 100 MLS/HR; Start 09/23/16 at 18:00 Pantoprazole/ Sodium Chloride (Protonix Iv/NS) 100 ml @ 10 mls/hr Q10H IV Last administered on 09/24/16 05:19; Admin Dose 10 MLS/HR; Start 09/23/16 at 17: 30 Acetaminophen (Tylenol Supp) 650 mg Q6H PRN [place] PAIN OR TEMP ABOVE 38C Last administered on 09/23/16 18:24; Admin Dose 650 MG; Start 09/23/16 at 18:00 ILYA MCMANUS MD Sep 24, 2016 11:36
--- NOTE | 2016-09-24 12:38 | PN ---
Date/Time of Note Date/Time of Note DATE: 09/24/16 TIME: 12:21 Assessment/Plan VTE Prophylaxis VTE Prophylaxis Intervention: SCD's Lines/Catheters IV Catheter Type (from Nrsg): Peripheral IV Assessment/Plan Assessment/Plan 71 yo male with: 1. Hematemesis: with ongoing bleeding despite hemoclipping yesterday, with stable HB post 1 unit but with hematemesis with NGT placement today Transfusing pRBC and platelets On protonix Hematemesis with insertion of NGT so IR contacted to possible embolization and Gen Surg consult with Dr Kaur. 2. 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 Diabetes mellitus, with associated neuropathy manifest by numbness in both feet. BG better controlled. BG stable on current dosing of Lantus at 15 units qhs and continue SSI. Zofran as needed for Nausea likely chemo related at this point. 4. Chronic benign positional vertigo. Continue Meclizine PRN 5. Gastroesophageal reflux disease. Continue Protonix 6. URI with cough and sore throat: CXR stable on admission, symptomatic treatment. 7. Hypertension: on Norvasc. 8. Oral mucosa irritation, cold sore and odynophagia: Continue Abreva and mouth wash, Nystatin. improving Prophylaxis. Sequential compression devices to lower extremity for DVT prevention, PPI for GI ppx DISPOSITION: S/p induction chemo, following counts, now with ongoing GIB, platelets and pRBC to be given and transferring to ICU Bone Marrow bx 09/19, f/u pathology this week and angiogram today. Subjective 24 Hr Interval Summary Free Text/Dictation Patient with hematemesis this AM and likely overnight NGT place and gross blood out Patient transferring to ICU and getting blood product while also awaiting angiogram today with possible embolization Exam/Review of Systems Vital Signs Vitals Vital Signs Date Time Temp Pulse Resp B/P Pulse Ox O2 Delivery O2 Flow Rate FiO2 09/24/16 07:00 98.7 94 20 127/59 100 09/23/16 23:04 Room Air 09/23/16 14:39 2.0 Intake and Output 09/23/16 09/23/16 09/24/16 15:00 23:00 07:00 Intake Total 30 ml 600 ml 590 ml Output Total 460 ml 550 ml Balance 30 ml 140 ml 40 ml Exam Constitutional: alert, frail, oriented Respiratory: clear to auscultation, normal air movement Cardiovascular: nl pulses, regular rate and rhythm Gastrointestinal: non-tender, soft Musculoskeletal: nl extremities to inspection, other (no edema, clubbing or cyanoisis ) Neurological: TRIM SETTER II-XII intact, nl mental status, nl speech, other ( generalised weakness ) Results Result Diagram: 09/24/1642909/24/16 043 Results 24 hrs Laboratory Tests Test 09/23/16 16:58 09/23/16 20:42 09/24/16 04:30 09/24/16 08:02 Bedside Glucose 152 146 141 Alanine Aminotransferase (ALT/SGPT) 30 Albumin 2.8 L Albumin/Globulin Ratio 0.68 Alkaline Phosphatase 94 Anion Gap 14 Aspartate Amino Transf (AST/SGOT) 18 Basophils # 0.0 Basophils % 0.0 Blood Morphology Comment Blood Urea Nitrogen 14 Calcium Level 8.1 L Carbon Dioxide Level 25 Chloride Level 99 Creatinine 0.66 Direct Bilirubin 0.00 Eosinophils # 0.1 Eosinophils % 2.7 Globulin 4.10 H Glucose Level 142 Hematocrit 23.1 L Hemoglobin 8.1 L Indirect Bilirubin 0.4 Lymphocytes # 0.5 L Lymphocytes % 9.9 L Mean Corpuscular Hemoglobin 30.2 Mean Corpuscular Hemoglobin Concent 35.1 Mean Corpuscular Volume 86.1 Mean Platelet Volume 8.2 Monocytes # 4.1 H Monocytes % 81.1 H Neutrophils # 0.3 L Neutrophils % 6.3 L Nucleated Red Blood Cells # 0.0 Nucleated Red Blood Cells % 0.0 Platelet Count 32 #L Potassium Level 3.7 Red Blood Count 2.68 L Red Cell Distribution Width 14.5 Sodium Level 134 L Total Bilirubin 0.4 Total Protein 6.9 White Blood Count 5.0 # Medications Medications Current Medications Miscellaneous Information 1 ea NOTE XX ; Start 08/31/16 at 02:00 Glucose (Glutose) 15 gm Q15M PRN PO DECREASED GLUCOSE; Start 08/31/16 at 02:00 Glucose (Glutose) 22.5 gm Q15M PRN PO DECREASED GLUCOSE; Start 08/31/16 at 02:00 Dextrose (D50w Syringe) 25 ml Q15M PRN IV DECREASED GLUCOSE; Start 08/31/16 at 02:00 Dextrose (D50w Syringe) 50 ml Q15M PRN IV DECREASED GLUCOSE; Start 08/31/16 at 02:00 Glucagon (Glucagen) 1 mg Q15M PRN IM DECREASED GLUCOSE; Start 08/31/16 at 02:00 Glucose (Glutose) 15 gm Q15M PRN BUCCAL DECREASED GLUCOSE; Start 08/31/16 at 02: 00 Fluticasone Propionate (Flonase 0.05% Nasal) 2 spray DAILY NASAL Last administered on 09/24/16 08:47; Admin Dose 2 SPRAY; Start 08/31/16 at 09:00 Ondansetron HCl (Zofran Inj) 4 mg Q6H PRN IV NAUSEA AND/OR VOMITING Last administered on 09/23/16 04:23; Admin Dose 4 MG; Start 09/01/16 at 11:30 Diphenhydramine HCl (Benadryl) 25 mg Q6H PRN PO ITCHING Last administered on 05:22; Admin Dose 25 MG; Start 09/01/16 at 11:30 Guaifenesin/ Dextromethorphan (Robitussin Dm Liquid Cup) 10 ml Q4H PRN PO COUGH Last administered on 09/22/16 09:40; Admin Dose 10 ML; Start 09/02/16 at 14:00 Allopurinol 300 mg 300 mg DAILY PO Last administered on 09/22/16 09:33; Admin Dose 300 MG; Start 09/04/16 at 16:30 Sodium Chloride (NS) 1,000 ml @ 50 mls/hr Q20H IV Last administered on 20:45; Admin Dose 50 MLS/HR; Start 09/05/16 at 12:00 IV Flush (NS 10 ml) 10 ml PRN PRN IV IV PROTOCOL; Start 09/05/16 at 12:30 Bisacodyl (Dulcolax Supp) 10 mg DAILY PRN [place] CONSTIPATION; Start 09/08/16 at 12 :00 Magnesium Hydroxide (Milk Of Mag) 30 ml DAILY PRN PO CONSTIPATION Last administered on 09/09/16 06:25; Admin Dose 30 ML; Start 09/08/16 at 12:00 Polyethylene Glycol (Miralax) 17 gm DAILY PO Last administered on 09/22/16 09: 33; Admin Dose 17 GM; Start 09/08/16 at 12:00 Docusate Sodium (Colace) 100 mg BID PO Last administered on 09/22/16 21:00; Admin Dose 100 MG; Start 09/08/16 at 21:00 Phenol (Cepastat Lozenge) 1 lozenge Q1H PRN [place] SORE THROAT Last administered on 09/17/16 20:16; Admin Dose 1 LOZENGE; Start 09/08/16 at 12:00 Amlodipine Besylate (Norvasc) 5 mg QHS PO Last administered on 09/22/16 21:00 ; Admin Dose 5 MG; Start 09/11/16 at 21:00 Miscellaneous Medication (Bax Susp) 30 ml QID PO Last administered on 16:55; Admin Dose 30 ML; Start 09/13/16 at 13:00 Nystatin (Nystatin Susp) 5 ml QID PO Last administered on 09/23/16 16:55; Admin Dose 5 ML; Start 09/14/16 at 17:00 Insulin Glargine (Lantus) 7.5 unit QHS SC Last administered on 09/22/16 21:02 ; Admin Dose 7.5 UNIT; Start 09/18/16 at 21:00 Diagnostic Test (Pha) 1 ea 1 ea 02 XX Last administered on 09/23/16 02:03; Admin Dose 1 EA; Start 09/23/16 at 02:00 Cefepime HCl 50 ml @ 100 mls/hr Q8 IVPB Last administered on 09/24/16 05:19; Admin Dose 100 MLS/HR; Start 09/23/16 at 18:00 Pantoprazole/ Sodium Chloride (Protonix Iv/NS) 100 ml @ 10 mls/hr Q10H IV Last administered on 09/24/16 05:19; Admin Dose 10 MLS/HR; Start 09/23/16 at 17: 30 Acetaminophen (Tylenol Supp) 650 mg Q6H PRN [place] PAIN OR TEMP ABOVE 38C Last administered on 09/23/16 18:24; Admin Dose 650 MG; Start 09/23/16 at 18:00 TAM ROSE Sep 24, 2016 12:34
[2016-09-24 13:16] LABS: INR 1.27; PARTIAL THROMBOPLASTIN TIME 37.7 Sec (25.0-35.0); PT RATIO 1.3
--- NOTE | 2016-09-24 13:56 | RADRPT ---
PROCEDURE: XR Chest. CLINICAL INDICATION: Check nasogastric tube position. TECHNIQUE: Single frontal view. COMPARISON: 09/23/2016. FINDINGS: The nasogastric tube tip is in the stomach. There is interstitial disease bilaterally consistent with pulmonary edema. There is a left arm PICC line with the tip in the lower superior vena cava. The heart size is normal. Surgical clips are p resent in the upper abdomen. There is no pleural effusion. There is no pneumothorax. IMPRESSION: 1. Nasogastric tube tip in the stomach. 2. Pulmonary edema. 3. Left arm PICC line in satisfactory position. 4. Prior upper abdomen surgery. RPTAT: QQ .Duc Whitt MD, MD Date Time Electronically viewed and signed by .Duc Whitt MD, on 09/24/2016 13:56 .R/
--- NOTE | 2016-09-24 14:23 | CONS ---
Date/Time of Note Date/Time of Note DATE: 09/24/16 TIME: 14:19 Assessment/Plan Assessment/Plan Chief Complaint/Hosp Course 71 yo with CMML who is currently off therapy admitted for symptomatic anemia and thrombocytopenia. 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 Pt has completed 7+3 and tolerated chemotherapy well thus far. Preliminary report of Day 14 bone marrow still shows residual disease, 8.2% by flow. Will need to speak with patient's primary oncologist Dr. Gallegos as to whether we need to re- induce the patient with chemotherapy. 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 -Continue allopurinol -patient underwent EGD on 09/23/16 that demonstrated gastric ulcer covered by clot s/p hemoclipping, however now with ongoing GIB bleeding with hemetemesis with NG placement today. Patient transferred to ICU with plan for plt and pRBC transfusion, possible IR embolization and general surgery consult. -patient will need to stay inpatient for 3-4 weeks to await count recovery and monitor for infection, transfusions, etc. -Discussed with patient's daughter Tawny ([phone]) who was updated on situation and plan Problems: Consultation Date/Type/Reason Admit Date/Time Aug 31, 2016 at 00:38 Initial Consult Date 09/02/16 Type of Consultation: Hematology/Oncology Referring Provider: TAM ROSE 24 HR Interval Summary Free Text/Dictation Patient noted to have hemetemsis "spitting up huge clots," which continued with NG placement today, transferred to ICU for ongoing GIB. Exam/Review of Systems Vital Signs Vitals Vital Signs Date Time Temp Pulse Resp B/P Pulse Ox O2 Delivery O2 Flow Rate FiO2 09/24/16 13:00 Nasal Cannula 2.0 09/24/16 12:27 97.9 99 18 145/67 98 Intake and Output 09/23/16 09/23/16 09/24/16 14:59 22:59 06:59 Intake Total 30 ml 600 ml 590 ml Output Total 460 ml 550 ml Balance 30 ml 140 ml 40 ml Exam Constitutional: alert, frail, oriented Psych: anxiety, depression Eyes: nl conjunctiva ENMT: nl external ears & nose Neck: non-tender, supple Respiratory: clear to auscultation Cardiovascular: nl pulses, regular rate and rhythm Gastrointestinal: soft Musculoskeletal: nl extremities to inspection, nl gait and stance Results Result Diagram: 09/24/16 0430 09/24/16 0430 Results 24 hrs Laboratory Tests Test 09/23/16 16:58 09/23/16 20:42 09/24/16 04:30 09/24/16 08:02 Bedside Glucose 152 146 141 Alanine Aminotransferase (ALT/SGPT) 30 Albumin 2.8 L Albumin/Globulin Ratio 0.68 Alkaline Phosphatase 94 Anion Gap 14 Aspartate Amino Transf (AST/SGOT) 18 Basophils # 0.0 Basophils % 0.0 Blood Morphology Comment Blood Urea Nitrogen 14 Calcium Level 8.1 L Carbon Dioxide Level 25 Chloride Level 99 Creatinine 0.66 Direct Bilirubin 0.00 Eosinophils # 0.1 Eosinophils % 2.7 Globulin 4.10 H Glucose Level 142 Hematocrit 23.1 L Hemoglobin 8.1 L Indirect Bilirubin 0.4 Lymphocytes # 0.5 L Lymphocytes % 9.9 L Mean Corpuscular Hemoglobin 30.2 Mean Corpuscular Hemoglobin Concent 35.1 Mean Corpuscular Volume 86.1 Mean Platelet Volume 8.2 Monocytes # 4.1 H Monocytes % 81.1 H Neutrophils # 0.3 L Neutrophils % 6.3 L Nucleated Red Blood Cells # 0.0 Nucleated Red Blood Cells % 0.0 Platelet Count 32 #L Potassium Level 3.7 Red Blood Count 2.68 L Red Cell Distribution Width 14.5 Sodium Level 134 L Total Bilirubin 0.4 Total Protein 6.9 White Blood Count 5.0 # Test 09/24/16 12:24 09/24/16 12:53 Bedside Glucose 157 Activated Partial Thromboplast Time 37.7 H INR International Normalized Ratio 1.27 Prothrombin Time 16.0 H Prothrombin Time Ratio 1.3 Medications Medications Current Medications Miscellaneous Information 1 ea NOTE XX ; Start 08/31/16 at 02:00 Glucose (Glutose) 15 gm Q15M PRN PO DECREASED GLUCOSE; Start 08/31/16 at 02:00 Glucose (Glutose) 22.5 gm Q15M PRN PO DECREASED GLUCOSE; Start 08/31/16 at 02:00 Dextrose (D50w Syringe) 25 ml Q15M PRN IV DECREASED GLUCOSE; Start 08/31/16 at 02:00 Dextrose (D50w Syringe) 50 ml Q15M PRN IV DECREASED GLUCOSE; Start 08/31/16 at 02:00 Glucagon (Glucagen) 1 mg Q15M PRN IM DECREASED GLUCOSE; Start 08/31/16 at 02:00 Glucose (Glutose) 15 gm Q15M PRN BUCCAL DECREASED GLUCOSE; Start 08/31/16 at 02: 00 Fluticasone Propionate (Flonase 0.05% Nasal) 2 spray DAILY NASAL Last administered on 09/24/16 08:47; Admin Dose 2 SPRAY; Start 08/31/16 at 09:00 Ondansetron HCl (Zofran Inj) 4 mg Q6H PRN IV NAUSEA AND/OR VOMITING Last administered on 09/23/16 04:23; Admin Dose 4 MG; Start 09/01/16 at 11:30 Diphenhydramine HCl (Benadryl) 25 mg Q6H PRN PO ITCHING Last administered on 05:22; Admin Dose 25 MG; Start 09/01/16 at 11:30 Guaifenesin/ Dextromethorphan (Robitussin Dm Liquid Cup) 10 ml Q4H PRN PO COUGH Last administered on 09/22/16 09:40; Admin Dose 10 ML; Start 09/02/16 at 14:00 Allopurinol 300 mg 300 mg DAILY PO Last administered on 09/22/16 09:33; Admin Dose 300 MG; Start 09/04/16 at 16:30 Sodium Chloride (NS) 1,000 ml @ 50 mls/hr Q20H IV Last administered on 20:45; Admin Dose 50 MLS/HR; Start 09/05/16 at 12:00 IV Flush (NS 10 ml) 10 ml PRN PRN IV IV PROTOCOL; Start 09/05/16 at 12:30 Bisacodyl (Dulcolax Supp) 10 mg DAILY PRN [place] CONSTIPATION; Start 09/08/16 at 12 :00 Magnesium Hydroxide (Milk Of Mag) 30 ml DAILY PRN PO CONSTIPATION Last administered on 09/09/16 06:25; Admin Dose 30 ML; Start 09/08/16 at 12:00 Polyethylene Glycol (Miralax) 17 gm DAILY PO Last administered on 09/22/16 09: 33; Admin Dose 17 GM; Start 09/08/16 at 12:00 Docusate Sodium (Colace) 100 mg BID PO Last administered on 09/22/16 21:00; Admin Dose 100 MG; Start 09/08/16 at 21:00 Phenol (Cepastat Lozenge) 1 lozenge Q1H PRN [place] SORE THROAT Last administered on 09/17/16 20:16; Admin Dose 1 LOZENGE; Start 09/08/16 at 12:00 Amlodipine Besylate (Norvasc) 5 mg QHS PO Last administered on 09/22/16 21:00 ; Admin Dose 5 MG; Start 09/11/16 at 21:00 Miscellaneous Medication (Bax Susp) 30 ml QID PO Last administered on 16:55; Admin Dose 30 ML; Start 09/13/16 at 13:00 Nystatin (Nystatin Susp) 5 ml QID PO Last administered on 09/23/16 16:55; Admin Dose 5 ML; Start 09/14/16 at 17:00 Insulin Glargine (Lantus) 7.5 unit QHS SC Last administered on 09/22/16 21:02 ; Admin Dose 7.5 UNIT; Start 09/18/16 at 21:00 Diagnostic Test (Pha) 1 ea 1 ea 02 XX Last administered on 09/23/16 02:03; Admin Dose 1 EA; Start 09/23/16 at 02:00 Cefepime HCl 50 ml @ 100 mls/hr Q8 IVPB Last administered on 09/24/16 05:19; Admin Dose 100 MLS/HR; Start 09/23/16 at 18:00 Pantoprazole/ Sodium Chloride (Protonix Iv/NS) 100 ml @ 10 mls/hr Q10H IV Last administered on 09/24/16 05:19; Admin Dose 10 MLS/HR; Start 09/23/16 at 17: 30 Acetaminophen (Tylenol Supp) 650 mg Q6H PRN [place] PAIN OR TEMP ABOVE 38C Last administered on 09/23/16 18:24; Admin Dose 650 MG; Start 09/23/16 at 18:00 ROMA BUNDY MD Sep 24, 2016 14:23
[2016-09-24] MEDS: SOD CHLORIDE 0.9% 1,000 ML IV SCH ×2 (15:43→16:00)
[2016-09-24] MEDS ORDERED: LIDOCAINE 1% (MDV) 20 ML INJ ONE (16:56)
[2016-09-24] MEDS ORDERED: SOD CHLORIDE 0.9% 500 ML ONE (16:56)
[2016-09-24] MEDS ORDERED: SOD CHLORIDE 0.9% 1,000 ML ONE (17:14)
[2016-09-24] MEDS ORDERED: IODIXANOL LOCM 50 ML BTL ONE (17:24)
[2016-09-24] MEDS ORDERED: GELATIN COMPRESSED 100CM SPONGE ONE (18:19)
[2016-09-24] MEDS: ONDANSETRON 4 MG INJ IV PRN (19:05)
[2016-09-24] MEDS: AMLODIPINE 5 MG TAB PO SCH (20:35)
--- NOTE | 2016-09-24 20:57 | CONS ---
DATE OF ADMISSION: 08/31/2016 DATE OF CONSULTATION: 09/24/2016 HISTORY OF PRESENT ILLNESS: Mr. Grove is a 71-year-old male who has been in the hospital for some t martin. However, once in the hospital, developed an upper GI bleed. He underwent an endoscopy yesterd ay which revealed bleeding from a source near the GE junction. He had 7 clips applied and then he c ontinued to bleed afterwards. He just underwent an IR which did not see an active source of bleed. The patient has a history of chronic myelocytic leukemia and has been hospitalized on 08/31/2016. PAST MEDICAL HISTORY: CML, pancytopenia, diabetes, neuropathy. PAST SURGICAL HISTORY: An operation 4 months ago, details not available. MEDICATIONS: Nasonex, Nexium, Zofran, Carafate, Invokamet, lidocaine and Xyzal. ALLERGIES: NO KNOWN DRUG ALLERGIES. PHYSICAL EXAMINATION: GENERAL: He is a well-developed, well-nourished male in no apparent distress. VITAL SIGNS: He is currently afebrile. Vital signs stable. CHEST: Clear to auscultation bilaterally. HEART: Regular rhythm. ABDOMEN: Soft, nontender, nondistended. LABORATORY DATA: Revealed a white count of 5, hematocrit of 23, platelets of 32. His PT, PTT are 1 .3 and PTT of 37.7. ASSESSMENT AND PLAN: Mr. Grove is a 71-year-old male with an upper gastrointestinal bleed. 1. Hemodynamically stable. 2. Would check H and H's q. 6. 3. The patient is interventional radiology with potential embolization. There is no bleeding source found. 4. Bleeding is in a very difficult spot to control surgically. If bleeds again, would recommend an other interventional radiology procedure. Dictated By: REI DESAI/NTS Conf#: [id number] DID#: [id number]
[2016-09-24] MEDS: INSULIN GLARGINE [LANtus] 3 ML PEN SC SCH (21:00)
[2016-09-25] VITALS (28 sets, daily range): BP systolic 105–136; BP diastolic 41–72; PULSE 68–97; RESP 7–25
[2016-09-25] MEDS: INSULIN GLARGINE [LANtus] 3 ML PEN SC SCH ×2 (01:43→21:30)
[2016-09-25] MEDS: ACCUCHECK XX SCH (01:44)
[2016-09-25] MEDS: PANTOPRAZOLE IV 80 MG in SOD CHLORIDE 0.9% 100 ML IV SCH ×3 (03:12→21:51)
[2016-09-25 05:01] LABS: HEMATOCRIT 25.8 % (42.0-52.0); HEMOGLOBIN 8.8 g/dl (14.0-18.0); MEAN CORPUSCULAR HEMOGLOBIN 29.1 pg (29.0-33.0); MEAN CORPUSCULAR VOLUME 85.8 fl (82.0-101.0); MEAN PLATELET VOLUME 6.7 fl (7.4-10.4); PLATELET COUNT 88 10^3/UL (140-440); UNCORRECTED WBC 5.4 10^3/ul (4.8-10.8); WHITE BLOOD COUNT 5.4 10^3/ul (4.8-10.8)
[2016-09-25] MEDS: CEFEPIME 2GM/50 ML (PMX) 50 ML IVPB SCH ×3 (05:59→21:40)
[2016-09-25 06:26] LABS: CONDITION 1; LH ANALYZER COMMENTS 1; SUSPECT 1
[2016-09-25 06:28] LABS: ALBUMIN 2.5 g/dl (3.3-4.9)
[2016-09-25 06:29] LABS: POTASSIUM 3.2 mmol/L (3.5-5.1)
[2016-09-25 06:31] LABS: ALBUMIN/GLOBULIN RATIO 0.62; BILIRUBIN,INDIRECT 0.5 mg/dl (0-1.1); BILIRUBIN,TOTAL 0.5 mg/dl (0.2-1.3); CREATININE 0.58 mg/dl (0.61-1.24); TOTAL PROTEIN 6.5 g/dl (6.1-8.1)
[2016-09-25 06:32] LABS: CALCIUM 7.8 mg/dl (8.4-10.2)
[2016-09-25] MEDS: SUCRALFATE 1 GM TAB PO SCH ×4 (07:05→21:50)
[2016-09-25] MEDS: INSULIN ASPART [NOVOLOG] 3 ML PEN SC SCH ×7 (07:35→21:00)
[2016-09-25] MEDS: NYSTATIN SUSP 5 ML CUP PO SCH ×3 (08:56→17:36)
[2016-09-25] MEDS: ALLOPURINOL 300 MG TAB PO SCH (08:56)
[2016-09-25] MEDS: DIPHENHYD PO SCH ×3 (08:56→17:00)
[2016-09-25] MEDS: DOCUSATE SODIUM 100 MG CAP PO SCH ×2 (08:56→21:40)
[2016-09-25] MEDS: POLYETHYLENE GLYCOL 17 GM PACKET PO SCH (08:56)
[2016-09-25] MEDS: MYLANTA PO SCH ×3 (08:56→17:00)
[2016-09-25] MEDS: LIDO PO SCH ×3 (08:56→17:00)
[2016-09-25] MEDS: FLUTICASONE 0.05% 16 GM NAS SPRAY NASAL SCH (08:57)
--- NOTE | 2016-09-25 09:21 | CONS ---
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 Pt has completed 7+3 and tolerated chemotherapy well thus far. Preliminary report of Day 14 bone marrow still shows residual disease, 8.2% by flow. Will need to speak with patient's primary oncologist Dr. Gallegos as to whether we need to re- induce the patient with chemotherapy. 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 Will consider Vidaza if more stable. -Continue allopurinol -patient underwent EGD on 09/23/16 that demonstrated gastric ulcer covered by clot s/p hemoclipping, now s/p IR angio. Patient transferred to ICU with plan for plt and pRBC transfusion. Bleeding much improved, counts improved. -patient will need to stay inpatient for 3-4 weeks to await count recovery and monitor for infection, transfusions, etc. -Discussed with patient's daughter Tawny ([phone]) who was updated on situation and plan Problems: Consultation Date/Type/Reason Admit Date/Time Aug 31, 2016 at 00:38 Initial Consult Date 09/02/16 Type of Consultation: Hematology/Oncology Referring Provider: TAM ROSE 24 HR Interval Summary Free Text/Dictation Per nursing, patient underwent procedure with a "sponge placed on left gastric artery," and is only spitting up pink tinged rather than solis blood, with no hemetemesis from NG tube. Counts improved today s/p 2 units pRBCs and 2 units platelets yesterday. Patient asking when he can eat. Exam/Review of Systems Vital Signs Vitals Vital Signs Date Time Temp Pulse Resp B/P Pulse Ox O2 Delivery O2 Flow Rate FiO2 09/25/16 07:00 79 18 125/61 99 Nasal Cannula 09/25/16 04:00 99.7 09/24/16 20:00 2.0 Intake and Output 09/24/16 09/24/16 09/25/16 15:00 23:00 07:00 Intake Total 753 ml 1145 ml 495 ml Output Total 0 ml 210 ml 220 ml Balance 753 ml 935 ml 275 ml Results Result Diagram: 09/25/16 0400 09/25/16 0400 Results 24 hrs Laboratory Tests Test 09/24/16 12:24 09/24/16 12:53 09/24/16 18:20 09/24/16 22:01 Bedside Glucose 157 147 158 Activated Partial Thromboplast Time 37.7 H INR International Normalized Ratio 1.27 Prothrombin Time 16.0 H Prothrombin Time Ratio 1.3 Test 09/25/16 01:41 09/25/16 04:00 09/25/16 07:44 Bedside Glucose 128 70 Alanine Aminotransferase (ALT/SGPT) 22 Albumin 2.5 L Albumin/Globulin Ratio 0.62 Alkaline Phosphatase 69 Anion Gap 11 Aspartate Amino Transf (AST/SGOT) 18 Basophils # Basophils % Blood Morphology Comment Blood Urea Nitrogen 15 Calcium Level 7.8 L Carbon Dioxide Level 26 Chloride Level 106 Creatinine 0.58 L Direct Bilirubin 0.00 Eosinophils # Eosinophils % Globulin 4.00 H Glucose Level 90 # Hematocrit 25.8 L Hemoglobin 8.8 L Indirect Bilirubin 0.5 Lymphocytes # Lymphocytes % Mean Corpuscular Hemoglobin 29.1 Mean Corpuscular Hemoglobin Concent 34.0 Mean Corpuscular Volume 85.8 Mean Platelet Volume 6.7 L Monocytes # Neutrophils # Neutrophils % Nucleated Red Blood Cells # Nucleated Red Blood Cells % Platelet Count 88 #L Potassium Level 3.2 L Red Blood Count 3.00 L Red Cell Distribution Width 16.0 H Sodium Level 140 Total Bilirubin 0.5 Total Protein 6.5 White Blood Count 5.4 Medications Medications Current Medications Miscellaneous Information 1 ea NOTE XX ; Start 08/31/16 at 02:00 Glucose (Glutose) 15 gm Q15M PRN PO DECREASED GLUCOSE; Start 08/31/16 at 02:00 Glucose (Glutose) 22.5 gm Q15M PRN PO DECREASED GLUCOSE; Start 08/31/16 at 02:00 Dextrose (D50w Syringe) 25 ml Q15M PRN IV DECREASED GLUCOSE; Start 08/31/16 at 02:00 Dextrose (D50w Syringe) 50 ml Q15M PRN IV DECREASED GLUCOSE; Start 08/31/16 at 02:00 Glucagon (Glucagen) 1 mg Q15M PRN IM DECREASED GLUCOSE; Start 08/31/16 at 02:00 Glucose (Glutose) 15 gm Q15M PRN BUCCAL DECREASED GLUCOSE; Start 08/31/16 at 02: 00 Fluticasone Propionate (Flonase 0.05% Nasal) 2 spray DAILY NASAL Last administered on 09/24/16 08:47; Admin Dose 2 SPRAY; Start 08/31/16 at 09:00 Ondansetron HCl (Zofran Inj) 4 mg Q6H PRN IV NAUSEA AND/OR VOMITING Last administered on 09/24/16 19:05; Admin Dose 4 MG; Start 09/01/16 at 11:30 Diphenhydramine HCl (Benadryl) 25 mg Q6H PRN PO ITCHING Last administered on 05:22; Admin Dose 25 MG; Start 09/01/16 at 11:30 Guaifenesin/ Dextromethorphan (Robitussin Dm Liquid Cup) 10 ml Q4H PRN PO COUGH Last administered on 09/22/16 09:40; Admin Dose 10 ML; Start 09/02/16 at 14:00 Allopurinol 300 mg 300 mg DAILY PO Last administered on 09/22/16 09:33; Admin Dose 300 MG; Start 09/04/16 at 16:30 Sodium Chloride (NS) 1,000 ml @ 50 mls/hr Q20H IV Last administered on 15:43; Admin Dose 50 MLS/HR; Start 09/05/16 at 12:00 IV Flush (NS 10 ml) 10 ml PRN PRN IV IV PROTOCOL; Start 09/05/16 at 12:30 Bisacodyl (Dulcolax Supp) 10 mg DAILY PRN [place] CONSTIPATION; Start 09/08/16 at 12 :00 Magnesium Hydroxide (Milk Of Mag) 30 ml DAILY PRN PO CONSTIPATION Last administered on 09/09/16 06:25; Admin Dose 30 ML; Start 09/08/16 at 12:00 Polyethylene Glycol (Miralax) 17 gm DAILY PO Last administered on 09/22/16 09: 33; Admin Dose 17 GM; Start 09/08/16 at 12:00 Docusate Sodium (Colace) 100 mg BID PO Last administered on 09/24/16 20:31; Admin Dose 100 MG; Start 09/08/16 at 21:00 Phenol (Cepastat Lozenge) 1 lozenge Q1H PRN [place] SORE THROAT Last administered on 09/17/16 20:16; Admin Dose 1 LOZENGE; Start 09/08/16 at 12:00 Amlodipine Besylate (Norvasc) 5 mg QHS PO Last administered on 09/24/16 20:35; Admin Dose 5 MG; Start 09/11/16 at 21:00 Miscellaneous Medication (Bax Susp) 30 ml QID PO Last administered on 16:55; Admin Dose 30 ML; Start 09/13/16 at 13:00 Nystatin (Nystatin Susp) 5 ml QID PO Last administered on 09/24/16 20:40; Admin Dose 5 ML; Start 09/14/16 at 17:00 Insulin Glargine (Lantus) 7.5 unit QHS SC Last administered on 09/25/16 01:43; Admin Dose 7.5 UNIT; Start 09/18/16 at 21:00 Diagnostic Test (Pha) 1 ea 1 ea 02 XX Last administered on 09/25/16 01:44; Admin Dose 1 EA; Start 09/23/16 at 02:00 Cefepime HCl 50 ml @ 100 mls/hr Q8 IVPB Last administered on 09/25/16 05:59; Admin Dose 100 MLS/HR; Start 09/23/16 at 18:00 Pantoprazole/ Sodium Chloride (Protonix Iv/NS) 100 ml @ 10 mls/hr Q10H IV Last administered on 09/25/16 03:12; Admin Dose 10 MLS/HR; Start 09/23/16 at 17: 30 Acetaminophen (Tylenol Supp) 650 mg Q6H PRN [place] PAIN OR TEMP ABOVE 38C Last administered on 09/23/16 18:24; Admin Dose 650 MG; Start 09/23/16 at 18:00 ROMA BUNDY MD Sep 25, 2016 09:21
[2016-09-25 11:11] LABS: EOSINOPHILS # 0.3 10^3/ul (0.0-0.5); LYMPHOCYTES # 0.8 10^3/ul (0.8-2.9); MONOCYTE # 3.6 10^3/ul (0.3-0.9); NEUTROPHIL # 0.2 10^3/ul (1.6-7.5); PLATELET ESTIMATE PLT APPEAR DECREASED
--- NOTE | 2016-09-25 11:54 | PN ---
Date/Time of Note Date/Time of Note DATE: 09/25/16 TIME: 11:31 Assessment/Plan VTE Prophylaxis VTE Prophylaxis Intervention: SCD's Lines/Catheters IV Catheter Type (from Nrsg): PICC Line Central line still needed: Yes (for IV access ) Urinary Cath still in place: No Assessment/Plan Assessment/Plan 71 yo male with: 1. Hematemesis: s/p EGD with hemoclipping followed by mesenteric angiogram yesterday with no source of acute bleeding found Hb at 8.8 yesterday post 2 units pRBC Plts up to 88, s/p additional 2units platelets yesterday, Continue Protonix gtt NGT to suction with coffee ground material mainly Monitor h/h and plts should be kept >50K likely for now Appreciate recs from Dr John and Dr Kaur. 2. 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 Neutropenia keep improving but still with severe anemia and thrombocytopenia requiring transfusion especially with episodes of UGIB/Gastric ulcer, s/p EGD and hemoclipping and mesenteric angiogram yesterday with no further acute bleeding Hematology will discuss further options for additional chemo with family 3. Diabetes mellitus, with associated neuropathy manifest by numbness in both feet. BG better controlled. BG stable on current dosing of Lantus at 15 units qhs and continue SSI. Zofran as needed for Nausea likely chemo related at this point. 4. Chronic benign positional vertigo. Continue Meclizine PRN 5. Gastroesophageal reflux disease. Continue Protonix 6. URI with cough and sore throat: CXR stable on admission, symptomatic treatment. 7. Hypertension: on Norvasc. 8. Oral mucosa irritation, cold sore and odynophagia: Continue Abreva and mouth wash, Nystatin. improving 9. Hypokalemia: replete today IV Prophylaxis. Sequential compression devices to lower extremity for DVT prevention, PPI for GI ppx DISPOSITION: S/p induction chemo, following counts, f/u GI and Gen surg recs regarding further care of gastric ulcer. Transferring to Telemetry. Bone Marrow bx 09/19, with poor risk AML and still with residual disease. Subjective 24 Hr Interval Summary Free Text/Dictation Patient sleeping and with generalized weakness No further acute hematemesis observed S/p mesenteric angio yesterday and no acute bleeding detected S/p 2 units pRBC and 2 units platelets with better counts today Repeat BM bx with still residual disease and will need additional chemo but need to reassess if can tolerate it Exam/Review of Systems Vital Signs Vitals Vital Signs Date Time Temp Pulse Resp B/P Pulse Ox O2 Delivery O2 Flow Rate FiO2 09/25/16 08:00 76 09/25/16 07:00 18 125/61 99 Nasal Cannula 09/25/16 04:00 99.7 09/24/16 20:00 2.0 Intake and Output 09/24/16 09/24/16 09/25/16 15:00 23:00 07:00 Intake Total 753 ml 1145 ml 495 ml Output Total 0 ml 210 ml 220 ml Balance 753 ml 935 ml 275 ml Exam Constitutional: alert, frail, oriented Respiratory: clear to auscultation, normal air movement Cardiovascular: nl pulses, regular rate and rhythm Gastrointestinal: non-tender, other (NGT in place to suction ), soft Musculoskeletal: nl extremities to inspection Extremities: normal pulses, other (no edema, clubbing or cyanosis ) Neurological: [employer] II-XII intact, nl mental status, nl speech, other ( generalized weakness ) Results Result Diagram: 09/25/16 0400 09/25/16 0400 Results 24 hrs Laboratory Tests Test 09/24/16 12:24 09/24/16 12:53 09/24/16 18:20 09/24/16 22:01 Bedside Glucose 157 147 158 Activated Partial Thromboplast Time 37.7 H INR International Normalized Ratio 1.27 Prothrombin Time 16.0 H Prothrombin Time Ratio 1.3 Test 09/25/16 01:41 09/25/16 04:00 09/25/16 07:44 Bedside Glucose 128 70 Alanine Aminotransferase (ALT/SGPT) 22 Albumin 2.5 L Albumin/Globulin Ratio 0.62 Alkaline Phosphatase 69 Anion Gap 11 Aspartate Amino Transf (AST/SGOT) 18 Band Neutrophils % 6.0 H Basophils # Basophils % Blast Cells % 2.0 H Blastocytes # 0.1 Blood Morphology Comment Blood Urea Nitrogen 15 Calcium Level 7.8 L Carbon Dioxide Level 26 Chloride Level 106 Creatinine 0.58 L Direct Bilirubin 0.00 Eosinophils # 0.3 Eosinophils % 6.0 Globulin 4.00 H Glucose Level 90 # Hematocrit 25.8 L Hemoglobin 8.8 L Indirect Bilirubin 0.5 Lymphocytes # 0.8 Lymphocytes % 14.0 L Mean Corpuscular Hemoglobin 29.1 Mean Corpuscular Hemoglobin Concent 34.0 Mean Corpuscular Volume 85.8 Mean Platelet Volume 6.7 L Monocytes # 3.6 H Monocytes % 67.0 H Neutrophils # 0.2 L Neutrophils % 4.0 L Nucleated Red Blood Cells # Nucleated Red Blood Cells % Platelet Count 88 #L Platelet Estimate PLT APPEAR DECREASED Potassium Level 3.2 L Reactive Lymphocytes % 1.0 Red Blood Count 3.00 L Red Cell Distribution Width 16.0 H Sodium Level 140 Total Bilirubin 0.5 Total Protein 6.5 White Blood Count 5.4 Medications Medications Current Medications Miscellaneous Information 1 ea NOTE XX ; Start 08/31/16 at 02:00 Glucose (Glutose) 15 gm Q15M PRN PO DECREASED GLUCOSE; Start 08/31/16 at 02:00 Glucose (Glutose) 22.5 gm Q15M PRN PO DECREASED GLUCOSE; Start 08/31/16 at 02:00 Dextrose (D50w Syringe) 25 ml Q15M PRN IV DECREASED GLUCOSE; Start 08/31/16 at 02:00 Dextrose (D50w Syringe) 50 ml Q15M PRN IV DECREASED GLUCOSE; Start 08/31/16 at 02:00 Glucagon (Glucagen) 1 mg Q15M PRN IM DECREASED GLUCOSE; Start 08/31/16 at 02:00 Glucose (Glutose) 15 gm Q15M PRN BUCCAL DECREASED GLUCOSE; Start 08/31/16 at 02: 00 Fluticasone Propionate (Flonase 0.05% Nasal) 2 spray DAILY NASAL Last administered on 09/24/16 08:47; Admin Dose 2 SPRAY; Start 08/31/16 at 09:00 Ondansetron HCl (Zofran Inj) 4 mg Q6H PRN IV NAUSEA AND/OR VOMITING Last administered on 09/24/16 19:05; Admin Dose 4 MG; Start 09/01/16 at 11:30 Diphenhydramine HCl (Benadryl) 25 mg Q6H PRN PO ITCHING Last administered on 05:22; Admin Dose 25 MG; Start 09/01/16 at 11:30 Guaifenesin/ Dextromethorphan (Robitussin Dm Liquid Cup) 10 ml Q4H PRN PO COUGH Last administered on 09/22/16 09:40; Admin Dose 10 ML; Start 09/02/16 at 14:00 Allopurinol 300 mg 300 mg DAILY PO Last administered on 09/22/16 09:33; Admin Dose 300 MG; Start 09/04/16 at 16:30 Sodium Chloride (NS) 1,000 ml @ 50 mls/hr Q20H IV Last administered on 15:43; Admin Dose 50 MLS/HR; Start 09/05/16 at 12:00 IV Flush (NS 10 ml) 10 ml PRN PRN IV IV PROTOCOL; Start 09/05/16 at 12:30 Bisacodyl (Dulcolax Supp) 10 mg DAILY PRN [place] CONSTIPATION; Start 09/08/16 at 12 :00 Magnesium Hydroxide (Milk Of Mag) 30 ml DAILY PRN PO CONSTIPATION Last administered on 09/09/16 06:25; Admin Dose 30 ML; Start 09/08/16 at 12:00 Polyethylene Glycol (Miralax) 17 gm DAILY PO Last administered on 09/22/16 09: 33; Admin Dose 17 GM; Start 09/08/16 at 12:00 Docusate Sodium (Colace) 100 mg BID PO Last administered on 09/24/16 20:31; Admin Dose 100 MG; Start 09/08/16 at 21:00 Phenol (Cepastat Lozenge) 1 lozenge Q1H PRN [place] SORE THROAT Last administered on 09/17/16 20:16; Admin Dose 1 LOZENGE; Start 09/08/16 at 12:00 Amlodipine Besylate (Norvasc) 5 mg QHS PO Last administered on 09/24/16 20:35; Admin Dose 5 MG; Start 09/11/16 at 21:00 Miscellaneous Medication (Bax Susp) 30 ml QID PO Last administered on 16:55; Admin Dose 30 ML; Start 09/13/16 at 13:00 Nystatin (Nystatin Susp) 5 ml QID PO Last administered on 09/24/16 20:40; Admin Dose 5 ML; Start 1/22/17 at 17:00 Insulin Glargine (Lantus) 7.5 unit QHS SC Last administered on 09/25/16 01:43; Admin Dose 7.5 UNIT; Start 09/18/16 at 21:00 Diagnostic Test (Pha) 1 ea 1 ea 02 XX Last administered on 09/25/16 01:44; Admin Dose 1 EA; Start 09/23/16 at 02:00 Cefepime HCl 50 ml @ 100 mls/hr Q8 IVPB Last administered on 09/25/16 05:59; Admin Dose 100 MLS/HR; Start 09/23/16 at 18:00 Pantoprazole/ Sodium Chloride (Protonix Iv/NS) 100 ml @ 10 mls/hr Q10H IV Last administered on 09/25/16 03:12; Admin Dose 10 MLS/HR; Start 09/23/16 at 17: 30 Acetaminophen (Tylenol Supp) 650 mg Q6H PRN [place] PAIN OR TEMP ABOVE 38C Last administered on 09/23/16 18:24; Admin Dose 650 MG; Start 09/23/16 at 18:00 TAM ROSE Sep 25, 2016 11:42
[2016-09-25] MEDS: SOD CHLORIDE 0.9% 1,000 ML IV SCH (12:19)
[2016-09-25] MEDS: DEXTROSE 5%-0.9% NACL 1,000 ML IV SCH (13:41)
[2016-09-25] MEDS: POTASSIUM CHLORIDE 250 ML IVPB SCH ×2 (13:45→16:40)
[2016-09-25] MEDS: AL HYDROX/MG HYDROX/SIMETH 30 ML CUP PO SCH ×3 (15:21→21:40)
--- NOTE | 2016-09-25 16:05 | CONS ---
DATE OF ADMISSION: 08/31/2016 DATE OF CONSULTATION: CHIEF COMPLAINT: The patient has no significant complaints. He has a good NG-tube in place now. The patient had vomited a lot of blood last night and he was endoscopically found to have a large ul cer below the GE junction with hemoclippings and hemoglobin was dropping to 8.2. He was given a blo od transfusion. Platelet transfusion was given yesterday and he underwent a mesenteric angiogram an d embolization of the left gastric artery. PHYSICAL EXAMINATION: The patient is alert. Nasogastric tube showing minimal amount of coffee-grou nd material. ABDOMEN: Showed unremarkable findings. LABORATORY WORKUP: Hemoglobin is 8.8. CLINICAL IMPRESSION: The patient presenting with history of gastric ulcer bleeding, status post hem ostasis with endoscopy and hemoclipping; however, that was not helping to prevent bleeding. Patient underwent a mesenteric angiogram and embolization of the left gastric artery. PLAN: At this time, the patient appears to be stable, recommend clear liquids. PLAN: Recommend Mylanta to 30 mL every 4 hours via NG-tube. Continue Protonix IV drip. Dictated By: ILYA MCMANUS MD NC/NTS Conf#: [id number] DID#: [id number] CC: SYDNIE ANDREW MD; ILYA MCMANUS MD;*[facility]*
[2016-09-25] MEDS: AMLODIPINE 5 MG TAB PO SCH (21:40)
[2016-09-26] VITALS (12 sets, daily range): BP systolic 129–149; BP diastolic 62–70; PULSE 72–84; RESP 15–20
[2016-09-26] MEDS: DIPHENHYD PO SCH ×5 (00:42→20:58)
[2016-09-26] MEDS: LIDO PO SCH ×5 (00:42→20:58)
[2016-09-26] MEDS: MYLANTA PO SCH ×5 (00:42→20:58)
[2016-09-26] MEDS: NYSTATIN SUSP 5 ML CUP PO SCH ×5 (00:42→20:58)
[2016-09-26] MEDS: AL HYDROX/MG HYDROX/SIMETH 30 ML CUP PO SCH ×6 (01:06→20:58)
[2016-09-26] MEDS: ACCUCHECK XX SCH (02:00)
[2016-09-26] MEDS: CEFEPIME 2GM/50 ML (PMX) 50 ML IVPB SCH (05:22)
[2016-09-26 06:19] LABS: HEMATOCRIT 24.1 % (42.0-52.0); HEMOGLOBIN 8.5 g/dl (14.0-18.0); MEAN CORPUSCULAR HEMOGLOBIN 30.1 pg (29.0-33.0); MEAN CORPUSCULAR HGB CONC 35.3 g/dl (32.0-37.0); MEAN CORPUSCULAR VOLUME 85.2 fl (82.0-101.0); MEAN PLATELET VOLUME 6.8 fl (7.4-10.4); PLATELET COUNT 48 10^3/UL (140-440); RED BLOOD COUNT 2.82 10^6/ul (4.70-6.10); RED CELL DISTRIBUTION WIDTH 16.4 % (11.5-14.5); UNCORRECTED WBC 5.5 10^3/ul (4.8-10.8); WHITE BLOOD COUNT 5.5 10^3/ul (4.8-10.8)
[2016-09-26 06:28] LABS: MAGNESIUM 1.9 mg/dl (1.7-2.5); PHOSPHORUS 1.3 mg/dl (2.5-4.9)
[2016-09-26 06:36] LABS: ALBUMIN 2.7 g/dl (3.3-4.9); POTASSIUM 3.4 mmol/L (3.5-5.1)
[2016-09-26 06:38] LABS: BILIRUBIN,INDIRECT 0.4 mg/dl (0-1.1); BILIRUBIN,TOTAL 0.4 mg/dl (0.2-1.3); CREATININE 0.58 mg/dl (0.61-1.24)
[2016-09-26 06:39] LABS: ALBUMIN/GLOBULIN RATIO 0.72; TOTAL PROTEIN 6.4 g/dl (6.1-8.1)
[2016-09-26 06:40] LABS: CALCIUM 7.8 mg/dl (8.4-10.2)
[2016-09-26 06:49] LABS: CONDITION 1; LH ANALYZER COMMENTS 1; SUSPECT 1
[2016-09-26] MEDS: PANTOPRAZOLE IV 80 MG in SOD CHLORIDE 0.9% 100 ML IV SCH (07:02)
[2016-09-26] MEDS: INSULIN ASPART [NOVOLOG] 3 ML PEN SC SCH ×4 (09:11→21:00)
[2016-09-26] MEDS: POLYETHYLENE GLYCOL 17 GM PACKET PO SCH (09:11)
[2016-09-26] MEDS: DEXTROSE 5%-0.9% NACL 1,000 ML IV SCH (09:12)
[2016-09-26] MEDS: ALLOPURINOL 300 MG TAB PO SCH (09:12)
[2016-09-26] MEDS: SUCRALFATE 1 GM TAB PO SCH ×4 (09:12→20:58)
[2016-09-26] MEDS: DOCUSATE SODIUM 100 MG CAP PO SCH ×2 (09:12→20:58)
--- NOTE | 2016-09-26 09:31 | CONS ---
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 Pt has completed 7+3 and tolerated chemotherapy well thus far. Preliminary report of Day 14 bone marrow still shows residual disease, 8.2% by flow. 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 Order written, will order meds and Dr. Ruiz or myself will give the ok to start once meds obtained. -Continue allopurinol -Patient underwent EGD on 09/23/16 that demonstrated gastric ulcer covered by clot s/p hemoclipping, now s/p mesenteric angiogram and embolization of the left gastric artery. Patient was in the ICU, now back on med surg floor. Hematemesis resolved. Once stable, please transfer to 4th floor oncology floor possibly Thursday for Vidaza. -Patient will need to stay inpatient for 3-4 weeks to await count recovery and monitor for infection, transfusions, etc. Plt goal > 50K if bleeding, > 20K if febrile, otherwise >10K. -Discussed with patient's daughter Tawny ([phone]) who was updated on situation and plan Problems: Consultation Date/Type/Reason Admit Date/Time Aug 31, 2016 at 00:38 Initial Consult Date 09/02/16 Type of Consultation: Hematology/Oncology Referring Provider: TAM ROSE 24 HR Interval Summary Free Text/Dictation Patient without further bleeding or hematemesis. Patient eating, afebrile. Exam/Review of Systems Vital Signs Vitals Vital Signs Date Time Temp Pulse Resp B/P Pulse Ox O2 Delivery O2 Flow Rate FiO2 09/26/16 08:23 84 09/26/16 07:57 98.1 19 140/65 95 09/25/16 20:00 Nasal Cannula 2.0 Intake and Output 09/25/16 09/25/16 09/26/16 15:00 23:00 07:00 Intake Total 807.5 ml 272.5 ml Output Total 600 ml 150 ml Balance 207.5 ml 122.5 ml Exam Constitutional: alert, frail, oriented Psych: anxiety, depression Eyes: nl conjunctiva ENMT: nl external ears & nose Neck: non-tender, supple Respiratory: clear to auscultation Cardiovascular: nl pulses, regular rate and rhythm Gastrointestinal: soft Musculoskeletal: nl extremities to inspection, nl gait and stance Results Result Diagram: 09/26/16 0520 09/26/16 0530 Results 24 hrs Laboratory Tests Test 09/25/16 12:23 09/25/16 12:34 09/25/16 12:42 09/25/16 16:37 Bedside Glucose 60 L 147 134 165 Test 09/25/16 21:27 09/26/16 05:20 09/26/16 05:30 09/26/16 07:44 Bedside Glucose 166 150 Basophils # Pending Basophils % Pending Blood Morphology Comment Eosinophils # Pending Eosinophils % Pending Hematocrit 24.1 L Hemoglobin 8.5 L Lymphocytes # Pending Lymphocytes % Pending Mean Corpuscular Hemoglobin 30.1 Mean Corpuscular Hemoglobin Concent 35.3 Mean Corpuscular Volume 85.2 Mean Platelet Volume 6.8 L Monocytes # Pending Monocytes % Pending Neutrophils # Pending Neutrophils % Pending Nucleated Red Blood Cells # Pending Nucleated Red Blood Cells % Pending Platelet Count 48 #L Red Blood Count 2.82 L Red Cell Distribution Width 16.4 H White Blood Count 5.5 Alanine Aminotransferase (ALT/SGPT) 30 Albumin 2.7 L Albumin/Globulin Ratio 0.72 Alkaline Phosphatase 80 Anion Gap 11 Aspartate Amino Transf (AST/SGOT) 19 Blood Urea Nitrogen 11 Calcium Level 7.8 L Carbon Dioxide Level 27 Chloride Level 101 Creatinine 0.58 L Direct Bilirubin 0.00 Globulin 3.70 H Glucose Level 147 # Indirect Bilirubin 0.4 Magnesium Level 1.9 Phosphorus Level 1.3 L Potassium Level 3.4 L Sodium Level 136 Total Bilirubin 0.4 Total Protein 6.4 Medications Medications Current Medications Miscellaneous Information 1 ea NOTE XX ; Start 08/31/16 at 02:00 Glucose (Glutose) 15 gm Q15M PRN PO DECREASED GLUCOSE; Start 08/31/16 at 02:00 Glucose (Glutose) 22.5 gm Q15M PRN PO DECREASED GLUCOSE; Start 08/31/16 at 02:00 Dextrose (D50w Syringe) 25 ml Q15M PRN IV DECREASED GLUCOSE Last administered on 09/25/16 12:29; Admin Dose 25 ML; Start 08/31/16 at 02:00 Dextrose (D50w Syringe) 50 ml Q15M PRN IV DECREASED GLUCOSE; Start 08/31/16 at 02:00 Glucagon (Glucagen) 1 mg Q15M PRN IM DECREASED GLUCOSE; Start 08/31/16 at 02:00 Glucose (Glutose) 15 gm Q15M PRN BUCCAL DECREASED GLUCOSE; Start 08/31/16 at 02: 00 Fluticasone Propionate (Flonase 0.05% Nasal) 2 spray DAILY NASAL Last administered on 09/24/16 08:47; Admin Dose 2 SPRAY; Start 08/31/16 at 09:00 Ondansetron HCl (Zofran Inj) 4 mg Q6H PRN IV NAUSEA AND/OR VOMITING Last administered on 09/24/16 19:05; Admin Dose 4 MG; Start 09/01/16 at 11:30 Diphenhydramine HCl (Benadryl) 25 mg Q6H PRN PO ITCHING Last administered on 05:22; Admin Dose 25 MG; Start 09/01/16 at 11:30 Guaifenesin/ Dextromethorphan (Robitussin Dm Liquid Cup) 10 ml Q4H PRN PO COUGH Last administered on 09/22/16 09:40; Admin Dose 10 ML; Start 09/02/16 at 14:00 Allopurinol (Zyloprim) 300 mg DAILY PO Last administered on 09/26/16 09:12; Admin Dose 300 MG; Start 09/04/16 at 16:30 IV Flush (NS 10 ml) 10 ml PRN PRN IV IV PROTOCOL; Start 09/05/16 at 12:30 Bisacodyl (Dulcolax Supp) 10 mg DAILY PRN [place] CONSTIPATION; Start 09/08/16 at 12 :00 Magnesium Hydroxide (Milk Of Mag) 30 ml DAILY PRN PO CONSTIPATION Last administered on 09/09/16 06:25; Admin Dose 30 ML; Start 09/08/16 at 12:00 Polyethylene Glycol (Miralax) 17 gm DAILY PO Last administered on 09/26/16 09: 11; Admin Dose 17 GM; Start 09/08/16 at 12:00 Docusate Sodium (Colace) 100 mg BID PO Last administered on 09/26/16 09:12; Admin Dose 100 MG; Start 09/08/16 at 21:00 Phenol (Cepastat Lozenge) 1 lozenge Q1H PRN [place] SORE THROAT Last administered on 09/17/16 20:16; Admin Dose 1 LOZENGE; Start 09/08/16 at 12:00 Amlodipine Besylate (Norvasc) 5 mg QHS PO Last administered on 09/25/16 21:40; Admin Dose 5 MG; Start 09/11/16 at 21:00 Miscellaneous Medication (Bax Susp) 30 ml QID PO Last administered on 09/26/16 00:42; Admin Dose 30 ML; Start 09/13/16 at 13:00 Nystatin (Nystatin Susp) 5 ml QID PO Last administered on 09/26/16 09:12; Admin Dose 5 ML; Start 09/14/16 at 17:00 Insulin Glargine (Lantus) 7.5 unit QHS SC Last administered on 09/25/16 21:30; Admin Dose 7.5 UNIT; Start 09/18/16 at 21:00 Diagnostic Test (Pha) 1 ea 1 ea 02 XX Last administered on 09/25/16 01:44; Admin Dose 1 EA; Start 09/23/16 at 02:00 Cefepime HCl 50 ml @ 100 mls/hr Q8 IVPB Last administered on 09/26/16 05:22; Admin Dose 100 MLS/HR; Start 09/23/16 at 18:00 Pantoprazole/ Sodium Chloride (Protonix Iv/NS) 100 ml @ 10 mls/hr Q10H IV Last administered on 09/26/16 07:02; Admin Dose 10 MLS/HR; Start 09/23/16 at 17: 30 Acetaminophen 650 mg 650 mg Q6H PRN [place] PAIN OR TEMP ABOVE 38C Last administered on 09/23/16 18:24; Admin Dose 650 MG; Start 09/23/16 at 18:00 Dextrose/Sodium Chloride (D5-NS) 1,000 ml @ 50 mls/hr Q20H IV Last administered on 09/26/16 09:12; Admin Dose 50 MLS/HR; Start 09/25/16 at 13:00 Al Hydrox/Mg Hydrox/Simethicone (Mag-Al Plus) 30 ml Q4 PO Last administered on 09/26/16t 09:12; Admin Dose 30 ML; Start 09/25/16 at 15:00 TOROMA MD Sep 26, 2016 09:31 TOROMA MD Sep 26, 2016 09:31
[2016-09-26] MEDS ORDERED: MAGNESIUM SULFATE 1 GM/D5W 100 ML IVPB ONE (10:00)
--- NOTE | 2016-09-26 10:08 | PN ---
Date/Time of Note Date/Time of Note DATE: 09/26/16 TIME: 09:39 Assessment/Plan VTE Prophylaxis VTE Prophylaxis Intervention: SCD's Lines/Catheters IV Catheter Type (from Nrsg): PICC Line Central line still needed: Yes (for IV access ) Urinary Cath still in place: No Reason Cath still needed: other (indicate) Assessment/Plan Assessment/Plan 71 yo male with: 1. Hematemesis: s/p EGD with hemoclipping followed by mesenteric angiogram yesterday with no source of acute bleeding found Hb at 8.8 yesterday post 2 units pRBC Plts up to 88, s/p additional 2units platelets yesterday, Continue Protonix gtt NGT to suction with No bloody or coffee ground output, OK to d/c NGT per Dr John and advance diet h/h stable and plts at 48 2. 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 Neutropenia resolved for now and Hb stable today. Monitor thrombocytopenia closely as requiring transfusion especially with episodes of UGIB/Gastric ulcer, s/p EGD and hemoclipping and mesenteric angiogram this week with no further acute bleeding x 48 hrs Hematology will discuss further options for additional chemo with family 3. Diabetes mellitus, with associated neuropathy manifest by numbness in both feet. BG better controlled. BG stable, once better po intake, increase dosing of Lantus back up to 15 units qhs if needed and continue SSI. Zofran as needed for Nausea 4. Chronic benign positional vertigo. Continue Meclizine PRN 5. Gastroesophageal reflux disease/Gastric Ulcer s/p episode of bleeding. On Protonix gtt currently but OK to change to IV BID per Dr John 6. URI with cough and sore throat: CXR stable on admission, symptomatic treatment. 7. Hypertension: on Norvasc. 8. Oral mucosa irritation, cold sore and odynophagia: Continue Abreva and mouth wash, Nystatin. improving 9. Hypokalemia/Low phosphorus: replete today with IV K phos and also repleting Mag 10. Klebsiella Pneumoniae UTI. On cefepime and remains afebrile. Will adjust to Levaquin based on sensitivities. Prophylaxis. Sequential compression devices to lower extremity for DVT prevention, PPI for GI ppx DISPOSITION: S/p induction chemo, following counts, f/u GI recs. Bone Marrow bx 09/19, with poor risk AML and still with residual disease. Subjective 24 Hr Interval Summary Free Text/Dictation Patient doing better today and is hungry No acute bleeding observed Discussed with Dr John and BORIS to d/c NGT and advance diet Discussed with Dr Olivas Exam/Review of Systems Vital Signs Vitals Vital Signs Date Time Temp Pulse Resp B/P Pulse Ox O2 Delivery O2 Flow Rate FiO2 09/26/16 08:23 84 09/26/16 07:57 98.1 19 140/65 95 09/25/16 20:00 Nasal Cannula 2.0 Intake and Output 09/25/16 09/25/16 09/26/16 15:00 23:00 07:00 Intake Total 807.5 ml 272.5 ml Output Total 600 ml 150 ml Balance 207.5 ml 122.5 ml Exam Constitutional: alert, oriented, well developed ENMT: other (NGT with Jello in tubing ....) Respiratory: clear to auscultation, normal air movement Cardiovascular: nl pulses, regular rate and rhythm Gastrointestinal: non-tender, soft Musculoskeletal: nl extremities to inspection, nl gait and stance Extremities: normal pulses Neurological: VE[employer]ER II-XII intact, nl mental status, nl speech, other ( generalized weakness ) Results Result Diagram: 09/26/16 0520 09/26/16 0530 Results 24 hrs Laboratory Tests Test 09/25/16 12:23 09/25/16 12:34 09/25/16 12:42 09/25/16 16:37 Bedside Glucose 60 L 147 134 165 Test 09/25/16 21:27 09/26/16 05:20 09/26/16 05:30 09/26/16 07:44 Bedside Glucose 166 150 Basophils # Pending Basophils % Pending Blood Morphology Comment Eosinophils # Pending Eosinophils % Pending Hematocrit 24.1 L Hemoglobin 8.5 L Lymphocytes # Pending Lymphocytes % Pending Mean Corpuscular Hemoglobin 30.1 Mean Corpuscular Hemoglobin Concent 35.3 Mean Corpuscular Volume 85.2 Mean Platelet Volume 6.8 L Monocytes # Pending Monocytes % Pending Neutrophils # Pending Neutrophils % Pending Nucleated Red Blood Cells # Pending Nucleated Red Blood Cells % Pending Platelet Count 48 #L Red Blood Count 2.82 L Red Cell Distribution Width 16.4 H White Blood Count 5.5 Alanine Aminotransferase (ALT/SGPT) 30 Albumin 2.7 L Albumin/Globulin Ratio 0.72 Alkaline Phosphatase 80 Anion Gap 11 Aspartate Amino Transf (AST/SGOT) 19 Blood Urea Nitrogen 11 Calcium Level 7.8 L Carbon Dioxide Level 27 Chloride Level 101 Creatinine 0.58 L Direct Bilirubin 0.00 Globulin 3.70 H Glucose Level 147 # Indirect Bilirubin 0.4 Magnesium Level 1.9 Phosphorus Level 1.3 L Potassium Level 3.4 L Sodium Level 136 Total Bilirubin 0.4 Total Protein 6.4 Medications Medications Current Medications Miscellaneous Information 1 ea NOTE XX ; Start 08/31/16 at 02:00 Glucose (Glutose) 15 gm Q15M PRN PO DECREASED GLUCOSE; Start 08/31/16 at 02:00 Glucose (Glutose) 22.5 gm Q15M PRN PO DECREASED GLUCOSE; Start 08/31/16 at 02:00 Dextrose (D50w Syringe) 25 ml Q15M PRN IV DECREASED GLUCOSE Last administered on 09/25/16 12:29; Admin Dose 25 ML; Start 08/31/16 at 02:00 Dextrose (D50w Syringe) 50 ml Q15M PRN IV DECREASED GLUCOSE; Start 08/31/16 at 02:00 Glucagon (Glucagen) 1 mg Q15M PRN IM DECREASED GLUCOSE; Start 08/31/16 at 02:00 Glucose (Glutose) 15 gm Q15M PRN BUCCAL DECREASED GLUCOSE; Start 08/31/16 at 02: 00 Fluticasone Propionate (Flonase 0.05% Nasal) 2 spray DAILY NASAL Last administered on 09/24/16 08:47; Admin Dose 2 SPRAY; Start 08/31/16 at 09:00 Ondansetron HCl (Zofran Inj) 4 mg Q6H PRN IV NAUSEA AND/OR VOMITING Last administered on 09/24/16 19:05; Admin Dose 4 MG; Start 09/01/16 at 11:30 Diphenhydramine HCl (Benadryl) 25 mg Q6H PRN PO ITCHING Last administered on 05:22; Admin Dose 25 MG; Start 09/01/16 at 11:30 Guaifenesin/ Dextromethorphan (Robitussin Dm Liquid Cup) 10 ml Q4H PRN PO COUGH Last administered on 09/22/16 09:40; Admin Dose 10 ML; Start 09/02/16 at 14:00 Allopurinol (Zyloprim) 300 mg DAILY PO Last administered on 09/26/16 09:12; Admin Dose 300 MG; Start 09/04/16 at 16:30 IV Flush (NS 10 ml) 10 ml PRN PRN IV IV PROTOCOL; Start 09/05/16 at 12:30 Bisacodyl (Dulcolax Supp) 10 mg DAILY PRN [place] CONSTIPATION; Start 09/08/16 at 12 :00 Magnesium Hydroxide (Milk Of Mag) 30 ml DAILY PRN PO CONSTIPATION Last administered on 09/09/16 06:25; Admin Dose 30 ML; Start 09/08/16 at 12:00 Polyethylene Glycol (Miralax) 17 gm DAILY PO Last administered on 09/26/16 09: 11; Admin Dose 17 GM; Start 09/08/16 at 12:00 Docusate Sodium (Colace) 100 mg BID PO Last administered on 09/26/16 09:12; Admin Dose 100 MG; Start 09/08/16 at 21:00 Phenol (Cepastat Lozenge) 1 lozenge Q1H PRN [place] SORE THROAT Last administered on 09/17/16 20:16; Admin Dose 1 LOZENGE; Start 09/08/16 at 12:00 Amlodipine Besylate (Norvasc) 5 mg QHS PO Last administered on 09/25/16 21:40; Admin Dose 5 MG; Start 09/11/16 at 21:00 Miscellaneous Medication (Bax Susp) 30 ml QID PO Last administered on 09/26/16 00:42; Admin Dose 30 ML; Start 09/13/16 at 13:00 Nystatin (Nystatin Susp) 5 ml QID PO Last administered on 09/26/16 09:12; Admin Dose 5 ML; Start 09/14/16 at 17:00 Insulin Glargine (Lantus) 7.5 unit QHS SC Last administered on 09/25/16 21:30; Admin Dose 7.5 UNIT; Start 09/18/16 at 21:00 Diagnostic Test (Pha) 1 ea 1 ea 02 XX Last administered on 09/25/16 01:44; Admin Dose 1 EA; Start 09/23/16 at 02:00 Cefepime HCl 50 ml @ 100 mls/hr Q8 IVPB Last administered on 09/26/16 05:22; Admin Dose 100 MLS/HR; Start 09/23/16 at 18:00 Pantoprazole/ Sodium Chloride (Protonix Iv/NS) 100 ml @ 10 mls/hr Q10H IV Last administered on 09/26/16 07:02; Admin Dose 10 MLS/HR; Start 09/23/16 at 17: 30 Acetaminophen 650 mg 650 mg Q6H PRN [place] PAIN OR TEMP ABOVE 38C Last administered on 09/23/16 18:24; Admin Dose 650 MG; Start 09/23/16 at 18:00 Dextrose/Sodium Chloride (D5-NS) 1,000 ml @ 50 mls/hr Q20H IV Last administered on 09/26/16 09:12; Admin Dose 50 MLS/HR; Start 09/25/16 at 13:00 Al Hydrox/Mg Hydrox/Simethicone (Mag-Al Plus) 30 ml Q4 PO Last administered on 09/26/16 09:12; Admin Dose 30 ML; Start 09/25/16 at 15:00 TAM ROSE Sep 26, 2016 09:54
[2016-09-26 10:36] LABS: BASOPHIL # 0.1 10^3/ul (0.0-0.1); EOSINOPHILS # 0.1 10^3/ul (0.0-0.5); LYMPHOCYTES # 0.8 10^3/ul (0.8-2.9); MONOCYTE # 3.7 10^3/ul (0.3-0.9); NEUTROPHIL # 0.6 10^3/ul (1.6-7.5)
[2016-09-26] MEDS: FLUTICASONE 0.05% 16 GM NAS SPRAY NASAL SCH (10:50)
[2016-09-26] MEDS ORDERED: POTASSIUM PHOSPHATE 30 MM in SOD CHLORIDE 0.9% 250 ML IVPB ONE (11:00)
[2016-09-26] MEDS: LEVOFLOXACIN 750MG/D5W (PMX) 150 ML IVPB SCH (12:13)
--- NOTE | 2016-09-26 16:27 | RADRPT ---
PROCEDURE: MESENTERIC ANGIOGRAM AND EMBOLIZATION CLINICAL INDICATION: Gastrointestinal hemorrhage TECHNIQUE: Fluoroscopy Time: 15 minutes The procedure, its potential risks, benefits and alternatives were explained. Risks, including but not limited to bleeding, infection, and nontarget embolization were discussed and understood. Follo wing this discussion with the patient, written informed consent was obtained. The right common femoral artery was imaged with ultrasound and was shown to be patent, with normal arterial color doppler appearance. An image of it was obtained and saved to the PACS system. Following the standard prep, and under ultrasound guidance, the right common femoral artery was pun ctured using anterior single wall micropuncture technique, and a 5 [place] sheath was placed in the r ight external iliac artery. ARTERIES INJECTED: Celiac axis Left gastric artery Branch of the left gastric artery Right common femoral artery ARTERIES EMBOLIZED WITH GELFOAM: Left gastric artery A Sos catheter was advanced into the abdominal aorta and the celiac axis was selected. An arteriogr am was obtained which demonstrated expected course and branching. A microcatheter was advanced through the Sos into the left gastric artery and an arteriogram was obt ained which demonstrated expected course a branching including several branches which terminated in gastric clips, without evidence of contrast extravasation. The microcatheter was redirected into a branch of the left gastric artery and an arteriogram was obt ained which again demonstrated expected course a branching without evidence of contrast extravasatio n. The microcatheter was pulled back into the main left gastric artery and an arteriogram was obtained which confirmed its location. The left gastric artery was prophylactically embolized with a Gelfoam slurry. Repeat arteriogram via the left gastric artery demonstrates marked pruning of branches of the left gastric artery. The microcatheter was removed and an arteriogram was obtained through the celiac axis via the sauce catheter which demonstrated marked pruning of distal branches of the left gastric artery without kwasi dence of contrast extravasation. All wires and catheters were removed through the right groin sheath. An arteriogram was obtained thr ough the right groin sheath which demonstrated to be in the right common femoral artery above the bi furcation into superficial femoral and profunda arteries. A wire was then advanced through the right groin sheath which was exchanged for an Angio-Seal device. The arteriotomy in the right common fem oral artery was then closed with the AngioSeal device second to protocol. Hemostasis was achieved a nd no bleeding was noted from the skin puncture site in the right groin. The procedure was done under moderate sedation, which I provided. I administered the first dose and oversaw subsequent monitoring by the nursing staff. COMPARISON: None FINDINGS: No definite evidence of contrast extravasation. IMPRESSION: Multiple mesenteric angiograms as well as prophylactic embolization of the left gastric artery with Gelfoam slurry, as above. RPTAT: EE Physician Kush Date Time Electronically viewed and signed by Anirudh Kramer Physician on 09/26/2016 16:27 /
[2016-09-26] MEDS: PANTOPRAZOLE 40 MG INJ IV SCH (17:22)
[2016-09-26] MEDS: AMLODIPINE 5 MG TAB PO SCH (20:59)
[2016-09-26] MEDS: INSULIN GLARGINE [LANtus] 3 ML PEN SC SCH (21:09)
[2016-09-27] VITALS (12 sets, daily range): BP systolic 115–150; BP diastolic 62–97; PULSE 68–82; RESP 18–20
[2016-09-27] MEDS: AL HYDROX/MG HYDROX/SIMETH 30 ML CUP PO SCH ×6 (01:00→20:32)
[2016-09-27] MEDS: ACCUCHECK XX SCH (02:00)
[2016-09-27] MEDS: DEXTROSE 5%-0.9% NACL 1,000 ML IV SCH (05:23)
[2016-09-27] MEDS: PANTOPRAZOLE 40 MG INJ IV SCH ×2 (05:24→17:29)
[2016-09-27] MEDS: SUCRALFATE 1 GM TAB PO SCH ×4 (05:24→20:35)
[2016-09-27] MEDS: INSULIN ASPART [NOVOLOG] 3 ML PEN SC SCH ×4 (08:00→20:32)
[2016-09-27] MEDS: FLUTICASONE 0.05% 16 GM NAS SPRAY NASAL SCH (08:50)
[2016-09-27] MEDS: NYSTATIN SUSP 5 ML CUP PO SCH ×4 (08:51→20:35)
[2016-09-27] MEDS: MYLANTA PO SCH ×4 (08:51→22:33)
[2016-09-27] MEDS: LIDO PO SCH ×4 (08:51→22:33)
[2016-09-27] MEDS: DIPHENHYD PO SCH ×4 (08:51→22:33)
[2016-09-27] MEDS: ALLOPURINOL 300 MG TAB PO SCH (08:51)
[2016-09-27] MEDS: POLYETHYLENE GLYCOL 17 GM PACKET PO SCH (08:51)
[2016-09-27] MEDS: DOCUSATE SODIUM 100 MG CAP PO SCH ×2 (08:51→20:33)
[2016-09-27] MEDS: LEVOFLOXACIN 750MG/D5W (PMX) 150 ML IVPB SCH (11:02)
[2016-09-27 11:25] LABS: ALBUMIN 2.3 g/dl (3.3-4.9); POTASSIUM 3.1 mmol/L (3.5-5.1)
[2016-09-27 11:27] LABS: CREATININE 0.56 mg/dl (0.61-1.24)
[2016-09-27 11:28] LABS: ALBUMIN/GLOBULIN RATIO 0.65; BILIRUBIN,INDIRECT 0.3 mg/dl (0-1.1); BILIRUBIN,TOTAL 0.3 mg/dl (0.2-1.3); TOTAL PROTEIN 5.8 g/dl (6.1-8.1)
[2016-09-27 11:29] LABS: CALCIUM 7.2 mg/dl (8.4-10.2)
[2016-09-27 11:34] LABS: MAGNESIUM 1.8 mg/dl (1.7-2.5); PHOSPHORUS 2.1 mg/dl (2.5-4.9)
[2016-09-27 11:52] LABS: MEAN CORPUSCULAR HGB CONC 34.8 g/dl (32.0-37.0); MEAN CORPUSCULAR VOLUME 83.3 fl (82.0-101.0); RED BLOOD COUNT 2.76 10^6/ul (4.70-6.10); WHITE BLOOD COUNT 5.5 10^3/ul (4.8-10.8)
[2016-09-27 11:53] LABS: RED CELL DISTRIBUTION WIDTH 14.7 % (11.5-14.5)
[2016-09-27 11:58] LABS: PLATELET COUNT 19 10^3/UL (140-440)
[2016-09-27 11:59] LABS: MEAN PLATELET VOLUME 8.5 fl (7.4-10.4)
[2016-09-27 12:53] LABS: BASOPHIL # 0.1 10^3/ul (0.0-0.1); EOSINOPHILS # 0.3 10^3/ul (0.0-0.5); LYMPHOCYTES # 0.7 10^3/ul (0.8-2.9); MONOCYTE # 2.5 10^3/ul (0.3-0.9); MYELOCYTES # 0.7; NEUTROPHIL # 0.7 10^3/ul (1.6-7.5)
[2016-09-27 12:55] LABS: HYPOCHROMASIA 1+; PLATELET ESTIMATE PLT APPEAR DECREASED
[2016-09-27] MEDS ORDERED: POTASSIUM CHLORIDE (SR) 20 MEQ TAB PO STA (16:42)
--- NOTE | 2016-09-27 17:29 | PN ---
Date/Time of Note Date/Time of Note DATE: 09/27/16 TIME: 17:10 Assessment/Plan VTE Prophylaxis VTE Prophylaxis Intervention: SCD's Lines/Catheters IV Catheter Type (from Nrs): PICC Line Central line still needed: Yes (chemotherapy) Urinary Cath still in place: No Assessment/Plan Assessment/Plan [facility] 1. 71 yo man now hospital day 28 for acute myelogenous leukemia, admitted for chemotherapy, now under neutropenic precautions with marked thrombocytopenia. 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 He is now s/p chemotherapy regimen 15 days ago, awaiting bone marrow recovery. * Hematology has discussed further options for additional chemotherapy with family, with plans to start in two days. 2. Hematemesis, with EGD leading to hemoclipping of gastric ulcer, according to the patient. Mesenteric angiogram showed no source of acute bleeding. Hct stable today at 23%. Platelets down to 19k/ul, down from 88. Most recent platelet transfusion two days ago (2 units). * Monitor H&H and platelets * Continue Protonix drip * Advance diet as tolerated. * No platelet transfusion for now, with plts > 10k and no evident bleeding. 3. Diabetes mellitus, with associated neuropathy (numbness in both feet). Blood sugars with good control now. * Will maintain Lantus at 7.5 units QHS in light of blood sugar of 77 this morning. * Zofran as needed for nausea 4. Chronic benign positional vertigo. * Continue Meclizine PRN 5. Gastroesophageal reflux disease/Gastric Ulcer s/p episode of bleeding. * Change Protonix to IV BID per Dr John 6. URI with cough and sore throat, now resolved 7. Hypertension * Continue Norvasc. 8. Oral mucosa irritation, cold sore and odynophagia improved. Upper and lower plates in place. * Continue Abreva and mouth wash, Nystatin. 9. Hypokalemia (3.1)/Low phosphorus * Potassium 40mEq PO today 10. Klebsiella Pneumoniae UTI. Very sensitive to levofloxacin. * Will switch to levofloxacin PO, which is as bio-available as IV in someone who is eating without difficulty. 11. Prophylaxis. Sequential compression devices to lower extremity for DVT prevention, PPI for GI ppx 12. DISPOSITION: S/p induction chemo, following counts, f/u GI recs. 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 Flex Verde MD PhD [phone] Subjective 24 Hr Interval Summary Free Text/Dictation Overall feeling well. No oral ulceration or bleeding. No headache. Appetite decreased, but no nausea or abdominal pain today. No visitors this afternoon while I was evaluating him. Exam/Review of Systems Vital Signs Vitals Vital Signs Date Time Temp Pulse Resp B/P Pulse Ox O2 Delivery O2 Flow Rate FiO2 09/27/16 16:30 98.1 70 18 144/97 95 09/27/16 04:00 Room Air 09/26/16 23:57 2.0 Intake and Output 09/26/16 09/26/16 09/27/16 15:00 23:00 07:00 Intake Total 750 ml 400 ml Balance 750 ml 400 ml Exam Constitutional: Friendly, sitting up in bed, well developed and breathing comfortably on room air. HEENT: Moist oral mucosa. Normal pupils, with no jaundice. Dentures in place. Respiratory: Mild diffuse crackles, but no wheezes. Normal air movement Cardiovascular: Symmetric pulses, regular rate and rhythm Gastrointestinal: non-tender, soft Musculoskeletal: nl extremities to inspection, with no peripheral edema. Neurological: HR INTERN II-XII intact, nl mental status, nl speech in Citizen [place]. Normal affect, intact executive function. Results Result Diagram: 09/27/16 1040 09/27/16 1040 Results 24 hrs Laboratory Tests Test 09/26/16 17:47 09/26/16 20:57 09/27/16 07:34 09/27/16 10:40 Bedside Glucose 172 156 77 Alanine Aminotransferase (ALT/SGPT) 23 Albumin 2.3 L Albumin/Globulin Ratio 0.65 Alkaline Phosphatase 72 Anion Gap 12 Aspartate Amino Transf (AST/SGOT) 16 Band Neutrophils % 3.0 Basophils # 0.1 Basophils % 1.0 Blood Urea Nitrogen 6 L Calcium Level 7.2 L Carbon Dioxide Level 26 Chloride Level 98 Creatinine 0.56 L Direct Bilirubin 0.00 Eosinophils # 0.3 Eosinophils % 6.0 Globulin 3.50 H Glucose Level 208 Hematocrit 23.0 L Hemoglobin 8.0 L Hypochromasia 1+ Indirect Bilirubin 0.3 Lymphocytes # 0.7 L Lymphocytes % 12.0 L Magnesium Level 1.8 Mean Corpuscular Hemoglobin 29.0 Mean Corpuscular Hemoglobin Concent 34.8 Mean Corpuscular Volume 83.3 Mean Platelet Volume 8.5 # Metamyelocytes # 0.4 Metamyelocytes % 7.0 H Monocytes # 2.5 H Monocytes % 46.0 H Myelocytes # 0.7 Myelocytes % 13.0 H Neutrophils # 0.7 L Neutrophils % 12.0 L Nucleated Red Blood Cells # Nucleated Red Blood Cells % 3.0 H Phosphorus Level 2.1 L Platelet Count 19 #*L Platelet Estimate PLT APPEAR DECREASED Potassium Level 3.1 L Red Blood Count 2.76 L Red Cell Distribution Width 14.7 H Sodium Level 133 L Total Bilirubin 0.3 Total Protein 5.8 L White Blood Count 5.5 Test 09/27/16 11:31 Bedside Glucose 145 Medications Medications Current Medications Miscellaneous Information 1 ea NOTE XX ; Start 08/31/16 at 02:00 Glucose (Glutose) 15 gm Q15M PRN PO DECREASED GLUCOSE; Start 08/31/16 at 02:00 Glucose (Glutose) 22.5 gm Q15M PRN PO DECREASED GLUCOSE; Start 08/31/16 at 02:00 Dextrose (D50w Syringe) 25 ml Q15M PRN IV DECREASED GLUCOSE Last administered on 09/25/16 12:29; Admin Dose 25 ML; Start 08/31/16 at 02:00 Dextrose (D50w Syringe) 50 ml Q15M PRN IV DECREASED GLUCOSE; Start 08/31/16 at 02:00 Glucagon (Glucagen) 1 mg Q15M PRN IM DECREASED GLUCOSE; Start 08/31/16 at 02:00 Glucose (Glutose) 15 gm Q15M PRN BUCCAL DECREASED GLUCOSE; Start 08/31/16 at 02: 00 Fluticasone Propionate (Flonase 0.05% Nasal) 2 spray DAILY NASAL Last administered on 09/27/16 08:50; Admin Dose 2 SPRAY; Start 08/31/16 at 09:00 Ondansetron HCl (Zofran Inj) 4 mg Q6H PRN IV NAUSEA AND/OR VOMITING Last administered on 09/24/16 19:05; Admin Dose 4 MG; Start 09/01/16 at 11:30 Diphenhydramine HCl (Benadryl) 25 mg Q6H PRN PO ITCHING Last administered on 05:22; Admin Dose 25 MG; Start 09/01/16 at 11:30 Guaifenesin/ Dextromethorphan (Robitussin Dm Liquid Cup) 10 ml Q4H PRN PO COUGH Last administered on 09/22/16 09:40; Admin Dose 10 ML; Start 09/02/16 at 14:00 Allopurinol (Zyloprim) 300 mg DAILY PO Last administered on 09/27/16 08:51; Admin Dose 300 MG; Start 09/04/16 at 16:30 IV Flush (NS 10 ml) 10 ml PRN PRN IV IV PROTOCOL; Start 09/05/16 at 12:30 Bisacodyl (Dulcolax Supp) 10 mg DAILY PRN [place] CONSTIPATION; Start 09/08/16 at 12 :00 Magnesium Hydroxide (Milk Of Mag) 30 ml DAILY PRN PO CONSTIPATION Last administered on 09/09/16 06:25; Admin Dose 30 ML; Start 09/08/16 at 12:00 Polyethylene Glycol (Miralax) 17 gm DAILY PO Last administered on 09/27/16 08: 51; Admin Dose 17 GM; Start 09/08/16 at 12:00 Docusate Sodium (Colace) 100 mg BID PO Last administered on 09/27/16 08:51; Admin Dose 100 MG; Start 09/08/16 at 21:00 Phenol (Cepastat Lozenge) 1 lozenge Q1H PRN [place] SORE THROAT Last administered on 09/17/16 20:16; Admin Dose 1 LOZENGE; Start 09/08/16 at 12:00 Amlodipine Besylate (Norvasc) 5 mg QHS PO Last administered on 09/26/16 20:59; Admin Dose 5 MG; Start 09/11/16 at 21:00 Miscellaneous Medication (Bax Susp) 30 ml QID PO Last administered on 09/27/16 15:46; Admin Dose 30 ML; Start 09/13/16 at 13:00 Nystatin (Nystatin Susp) 5 ml QID PO Last administered on 09/27/16 12:11; Admin Dose 5 ML; Start 09/14/16 at 17:00 Insulin Glargine (Lantus) 7.5 unit QHS SC Last administered on 09/26/16 21:09; Admin Dose 7.5 UNIT; Start 09/18/16 at 21:00 Diagnostic Test (Pha) (Accucheck) 1 ea 02 XX Last administered on 09/25/16 01: 44; Admin Dose 1 EA; Start 09/23/16 at 02:00 Acetaminophen 650 mg 650 mg Q6H PRN [place] PAIN OR TEMP ABOVE 38C Last administered on 09/23/16 18:24; Admin Dose 650 MG; Start 09/23/16 at 18:00 Dextrose/Sodium Chloride (D5-NS) 1,000 ml @ 50 mls/hr Q20H IV Last administered on 09/27/16 05:23; Admin Dose 50 MLS/HR; Start 09/25/16 at 13:00 Al Hydrox/Mg Hydrox/ Simethicone 30 ml 30 ml Q4 PO Last administered on 12:11; Admin Dose 30 ML; Start 09/25/16 at 15:00 Levofloxacin/ Dextrose (Levaquin 750 Mg/ D5W 150 ml (Pmx)) 150 ml @ 100 mls/hr Q24H IVPB Last administered on 09/27/16 11:02; Admin Dose 100 MLS/HR; Start 09/26/16 at 11:00 Pantoprazole (Protonix Iv) 40 mg BID@06,18 IV Last administered on 09/27/16 05: 24; Admin Dose 40 MG; Start 09/26/16 at 18:00 SYDNIE VERDE M.D. Sep 27, 2016 17:22
[2016-09-27] MEDS: INSULIN GLARGINE [LANtus] 3 ML PEN SC SCH (20:34)
[2016-09-27] MEDS: AMLODIPINE 5 MG TAB PO SCH (20:35)
[2016-09-28] VITALS (12 sets, daily range): BP systolic 122–158; BP diastolic 57–73; PULSE 64–79; RESP 16–20
[2016-09-28] MEDS: AL HYDROX/MG HYDROX/SIMETH 30 ML CUP PO SCH ×6 (01:27→20:13)
[2016-09-28] MEDS: ACCUCHECK XX SCH (02:00)
[2016-09-28] MEDS: DEXTROSE 5%-0.9% NACL 1,000 ML IV SCH ×2 (02:56→21:17)
[2016-09-28] MEDS: PANTOPRAZOLE 40 MG INJ IV SCH ×2 (06:07→17:11)
[2016-09-28 06:52] LABS: HEMATOCRIT 24.2 % (42.0-52.0); HEMOGLOBIN 8.6 g/dl (14.0-18.0); MEAN CORPUSCULAR HEMOGLOBIN 30.2 pg (29.0-33.0); MEAN CORPUSCULAR HGB CONC 35.4 g/dl (32.0-37.0); MEAN CORPUSCULAR VOLUME 85.3 fl (82.0-101.0); MEAN PLATELET VOLUME 9.7 fl (7.4-10.4); RED BLOOD COUNT 2.83 10^6/ul (4.70-6.10); UNCORRECTED WBC 5.9 10^3/ul (4.8-10.8); WHITE BLOOD COUNT 5.9 10^3/ul (4.8-10.8)
[2016-09-28 07:12] LABS: CONDITION 1; LH ANALYZER COMMENTS 1; SUSPECT 1
[2016-09-28 07:13] LABS: PLATELET COUNT 15 10^3/UL (140-440)
[2016-09-28 07:24] LABS: ALBUMIN 2.6 g/dl (3.3-4.9); POTASSIUM 3.6 mmol/L (3.5-5.1)
[2016-09-28 07:27] LABS: ALBUMIN/GLOBULIN RATIO 0.7; BILIRUBIN,INDIRECT 0.2 mg/dl (0-1.1); BILIRUBIN,TOTAL 0.2 mg/dl (0.2-1.3); CALCIUM 7.6 mg/dl (8.4-10.2); CREATININE 0.51 mg/dl (0.61-1.24); TOTAL PROTEIN 6.3 g/dl (6.1-8.1)
[2016-09-28] MEDS: INSULIN ASPART [NOVOLOG] 3 ML PEN SC SCH ×4 (08:00→20:24)
--- NOTE | 2016-09-28 08:12 | PN ---
DATE: 09/27/2016 SUBJECTIVE: Mr. 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 He had induction of chemotherapy for AML about 4 weeks ago, but repeat bone marrow shows only suboptimal response. He is still relatively weak and is eating poorly. OBJECTIVE: GENERAL: Shows moderately built male who is alert and oriented. He is afebrile. HEAD: Normocephalic. MOUTH: Oral mucosa normal. CHEST: Symmetrical. LUNGS: Show distant breath sounds. HEART: Sinus tachycardia. ABDOMEN: Soft. SKIN: Showed on rashes or petechiae. LYMPH NODES: No peripheral lymphadenopathy. BONES AND JOINTS: Unremarkable. LABORATORY DATA: His WBC is 5500, hemoglobin is down to 8, and the platelets are down to 19,000. T he PT/INR is 1.3. IMPRESSION: 1. 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 2. Persistent pancytopenia. PLAN AND DISCUSSION: This patient has a secondary type of AML. Those are difficult to treat. He h as not responded to the induction of chemotherapy. His prognosis is quite guarded. The plan is to start doing a trial of Vidaza soon. We will monitor him for fever, and also we will monitor his CBC . He will need transfusion soon. Dictated By: MACY MONIQUE/MALIK Conf#: [id number] DID#: [id number]
[2016-09-28] MEDS: NYSTATIN SUSP 5 ML CUP PO SCH ×4 (08:21→21:47)
[2016-09-28] MEDS: DOCUSATE SODIUM 100 MG CAP PO SCH ×2 (08:22→20:13)
[2016-09-28] MEDS: FLUTICASONE 0.05% 16 GM NAS SPRAY NASAL SCH (08:22)
[2016-09-28] MEDS: SUCRALFATE 1 GM TAB PO SCH ×4 (08:22→20:13)
[2016-09-28] MEDS: POLYETHYLENE GLYCOL 17 GM PACKET PO SCH (08:22)
[2016-09-28] MEDS: ALLOPURINOL 300 MG TAB PO SCH (08:22)
[2016-09-28] MEDS: LEVOFLOXACIN 750 MG TABLET PO SCH (08:22)
[2016-09-28 09:32] LABS: EOSINOPHILS # 0.2 10^3/ul (0.0-0.5); LYMPHOCYTES # 1.4 10^3/ul (0.8-2.9); MONOCYTE # 2.5 10^3/ul (0.3-0.9); MYELOCYTES # 0.5; NEUTROPHIL # 0.7 10^3/ul (1.6-7.5)
[2016-09-28 09:33] LABS: PLATELET ESTIMATE PLT APPEAR DECREASED
--- NOTE | 2016-09-28 11:15 | PN ---
Date/Time of Note Date/Time of Note DATE: 09/28/16 TIME: 11:06 Assessment/Plan VTE Prophylaxis VTE Prophylaxis Intervention: SCD's Lines/Catheters IV Catheter Type (from Nrsg): PICC Line Central line still needed: Yes (Undergoing chemotherapy) Urinary Cath still in place: No Assessment/Plan Assessment/Plan [facility] 1. 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 Under neutropenic precautions, with no sign of acute infection. * Per Dr. Delarosa, anticipate starting him on Vidaza soon. Active bleeding and thrombocytopenia may restrict our ability to launch this new therapy. 2. Marked thrombocytopenia, down to 14k/ul today (from 19 yesterday). Also his nurse is reporting a possible melenic stool this morning. He had hematemesis last week, with hemoclipping by EGD of gastric ulcer. Mesenteric angiogram showed no source of acute bleeding. Hct stable today at 24.2%. His most recent platelet transfusion three days ago (2 units). * Send stool for hemoccult * Monitor H&H and platelets * Now on IV scheduled Protonix * Change diet to diabetic soft mechanical * No platelet transfusion for now, with plts > 10k and no evident bleeding. 3. Diabetes mellitus, with associated neuropathy (numbness in both feet). Blood sugars with good control mostly, though his early AM glucose was >200 (possibly secondary to a snack?) * Will maintain Lantus at 7.5 units QHS in light of blood sugar lability and normal pre-breakfast sugar today. * Zofran as needed for nausea 4. Chronic benign positional vertigo. * Continue Meclizine PRN 5. Gastroesophageal reflux disease/Gastric Ulcer s/p episode of bleeding. * Protonix IV BID per Dr John 6. URI with cough and sore throat, now resolved 7. Hypertension * Continue Norvasc. 8. Oral mucosa irritation, cold sore and odynophagia improved. Upper and lower plates in place. * Continue Abreva and mouth wash, Nystatin. 9. Hypokalemia/hypophosphatemia. K+ 3.6 today. * monitor electrolytes 10. Klebsiella Pneumoniae UTI. Very sensitive to levofloxacin. * Day 2 PO levofloxacin 11. Prophylaxis. Sequential compression devices to lower extremity for DVT prevention, PPI for GI ppx 12. DISPOSITION: S/p induction chemo, following counts, f/u GI recs. 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 Flex Verde MD PhD [phone] Subjective 24 Hr Interval Summary Free Text/Dictation Spoke with the patient, and with his daughter by phone. No complaints, including headache, dyspnea, dysuria or urethritis symptoms. Appetite still somewhat poor. His nurse reported that he has discomfort with chewing, possibly related to mouth sores affecting his denture fit. Also had a dark, sticky bowel movement this morning. Subjective hx not possible: other (Patient alert and responsive) Exam/Review of Systems Vital Signs Vitals Vital Signs Date Time Temp Pulse Resp B/P Pulse Ox O2 Delivery O2 Flow Rate FiO2 09/28/16 08:07 68 09/28/16 07:55 99.0 20 145/69 98 09/27/16 04:00 Room Air 09/26/16 23:57 2.0 Intake and Output 09/27/16 09/27/16 09/28/16 15:00 23:00 07:00 Intake Total 300 ml 950 ml 1500 ml Output Total 400 ml 1300 ml 2025 ml Balance -100 ml -350 ml -525 ml Exam Constitutional: Smiling, sitting up in bed, reathing comfortably on room air. HEENT: Normal pupils, with no jaundice. Moist oral mucosa. Dentures in place. Respiratory: Mild diffuse crackles at both bases, extending up into the mid- lung field on the right, but no wheezing. Good air movement Cardiovascular: Symmetric pulses, regular rate and rhythm Gastrointestinal: non-tender, soft Musculoskeletal: nl extremities to inspection, with no peripheral edema. Neurological: SCHOLARSHIP COUNSELOR II-XII intact, nl mental status, nl speech in Wallisian. Normal affect, intact executive function. Results Result Diagram: 09/28/1615 09/28/1615 Results 24 hrs Laboratory Tests Test 09/27/16 11:31 09/27/16 17:27 09/27/16 20:29 09/28/16 05:15 Bedside Glucose 145 163 153 Alanine Aminotransferase (ALT/SGPT) 21 Albumin 2.6 L Albumin/Globulin Ratio 0.70 Alkaline Phosphatase 77 Anion Gap 11 Aspartate Amino Transf (AST/SGOT) 18 Band Neutrophils % 7.0 H Basophils # Basophils % Blast Cells % 1.0 H Blastocytes # 0.1 Blood Morphology Comment Blood Urea Nitrogen 5 L Calcium Level 7.6 L Carbon Dioxide Level 27 Chloride Level 100 Creatinine 0.51 L Differential Comment MANUAL DIFF Direct Bilirubin 0.00 Eosinophils # 0.2 Eosinophils % 4.0 Globulin 3.70 H Glucose Level 229 H Hematocrit 24.2 L Hemoglobin 8.6 L Indirect Bilirubin 0.2 Lymphocytes # 1.4 Lymphocytes % 23.0 Mean Corpuscular Hemoglobin 30.2 Mean Corpuscular Hemoglobin Concent 35.4 Mean Corpuscular Volume 85.3 Mean Platelet Volume 9.7 Metamyelocytes # 0.1 Metamyelocytes % 2.0 H Monocytes # 2.5 H Monocytes % 42.0 H Myelocytes # 0.5 Myelocytes % 9.0 H Neutrophils # 0.7 L Neutrophils % 12.0 L Nucleated Red Blood Cells # Nucleated Red Blood Cells % 3.0 H Platelet Count 15 #*L Platelet Estimate PLT APPEAR DECREASED Potassium Level 3.6 Red Blood Count 2.83 L Red Cell Distribution Width 16.0 H Sodium Level 134 L Total Bilirubin 0.2 Total Protein 6.3 White Blood Count 5.9 Test 09/28/16 07:44 Bedside Glucose 125 Medications Medications Current Medications Miscellaneous Information 1 ea NOTE XX ; Start 08/31/16 at 02:00 Glucose (Glutose) 15 gm Q15M PRN PO DECREASED GLUCOSE; Start 08/31/16 at 02:00 Glucose (Glutose) 22.5 gm Q15M PRN PO DECREASED GLUCOSE; Start 08/31/16 at 02:00 Dextrose (D50w Syringe) 25 ml Q15M PRN IV DECREASED GLUCOSE Last administered on 09/25/16 12:29; Admin Dose 25 ML; Start 08/31/16 at 02:00 Dextrose (D50w Syringe) 50 ml Q15M PRN IV DECREASED GLUCOSE; Start 08/31/16 at 02:00 Glucagon (Glucagen) 1 mg Q15M PRN IM DECREASED GLUCOSE; Start 08/31/16 at 02:00 Glucose (Glutose) 15 gm Q15M PRN BUCCAL DECREASED GLUCOSE; Start 08/31/16 at 02: 00 Fluticasone Propionate (Flonase 0.05% Nasal) 2 spray DAILY NASAL Last administered on 09/28/16 08:22; Admin Dose 2 SPRAY; Start 08/31/16 at 09:00 Ondansetron HCl (Zofran Inj) 4 mg Q6H PRN IV NAUSEA AND/OR VOMITING Last administered on 09/24/16 19:05; Admin Dose 4 MG; Start 09/01/16 at 11:30 Diphenhydramine HCl (Benadryl) 25 mg Q6H PRN PO ITCHING Last administered on 05:22; Admin Dose 25 MG; Start 09/01/16 at 11:30 Guaifenesin/ Dextromethorphan (Robitussin Dm Liquid Cup) 10 ml Q4H PRN PO COUGH Last administered on 09/22/16 09:40; Admin Dose 10 ML; Start 09/02/16 at 14:00 Allopurinol (Zyloprim) 300 mg DAILY PO Last administered on 09/28/16 08:22; Admin Dose 300 MG; Start 09/04/16 at 16:30 IV Flush (NS 10 ml) 10 ml PRN PRN IV IV PROTOCOL; Start 09/05/16 at 12:30 Bisacodyl (Dulcolax Supp) 10 mg DAILY PRN ME CONSTIPATION; Start 09/08/16 at 12 :00 Magnesium Hydroxide (Milk Of Mag) 30 ml DAILY PRN PO CONSTIPATION Last administered on 09/09/16 06:25; Admin Dose 30 ML; Start 09/08/16 at 12:00 Polyethylene Glycol (Miralax) 17 gm DAILY PO Last administered on 09/28/16 08: 22; Admin Dose 17 GM; Start 09/08/16 at 12:00 Docusate Sodium (Colace) 100 mg BID PO Last administered on 09/28/16 08:22; Admin Dose 100 MG; Start 09/08/16 at 21:00 Phenol (Cepastat Lozenge) 1 lozenge Q1H PRN MT SORE THROAT Last administered on 09/17/16 20:16; Admin Dose 1 LOZENGE; Start 09/08/16 at 12:00 Amlodipine Besylate (Norvasc) 5 mg QHS PO Last administered on 09/27/16 20:35; Admin Dose 5 MG; Start 09/11/16 at 21:00 Miscellaneous Medication (Bax Susp) 30 ml QID PO Last administered on 09/27/16 22:33; Admin Dose 30 ML; Start 09/13/16 at 13:00 Nystatin (Nystatin Susp) 5 ml QID PO Last administered on 09/28/16 08:21; Admin Dose 5 ML; Start 09/14/16 at 17:00 Insulin Glargine (Lantus) 7.5 unit QHS SC Last administered on 09/27/16 20:34; Admin Dose 7.5 UNIT; Start 09/18/16 at 21:00 Diagnostic Test (Pha) (Accucheck) 1 ea 02 XX Last administered on 09/25/16 01: 44; Admin Dose 1 EA; Start 09/23/16 at 02:00 Acetaminophen 650 mg 650 mg Q6H PRN ME PAIN OR TEMP ABOVE 38C Last administered on 09/23/16 18:24; Admin Dose 650 MG; Start 09/23/16 at 18:00 Dextrose/Sodium Chloride (D5-NS) 1,000 ml @ 50 mls/hr Q20H IV Last administered on 09/28/16 02:56; Admin Dose 50 MLS/HR; Start 09/25/16 at 13:00 Al Hydrox/Mg Hydrox/Simethicone (Mag-Al Plus) 30 ml Q4 PO Last administered on 09/28/16 08:21; Admin Dose 30 ML; Start 09/25/16 at 15:00 Pantoprazole (Protonix Iv) 40 mg BID@06,18 IV Last administered on 09/28/16 06: 07; Admin Dose 40 MG; Start 09/26/16 at 18:00 Levofloxacin (Levaquin) 750 mg DAILY@09 PO Last administered on 09/28/16 08:22 ; Admin Dose 750 MG; Start 09/28/16 at 09:00 SYDNIE VERDE M.D. Sep 28, 2016 11:15
[2016-09-28] MEDS: DIPHENHYD PO SCH ×4 (12:06→21:12)
[2016-09-28] MEDS: LIDO PO SCH ×4 (12:06→21:12)
[2016-09-28] MEDS: MYLANTA PO SCH ×4 (12:06→21:12)
--- NOTE | 2016-09-28 19:55 | HKNOTE ---
DATE OF SERVICE: 09/28/2016 HISTORY OF PRESENT ILLNESS: Mr. 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 The patient bloom d suboptimal response. He is slowly recovering from the chemotherapy. He is still weak and he is e ating fair. PHYSICAL EXAMINATION: GENERAL: Shows moderately built male who is alert, oriented, cooperative. VITAL SIGNS: Unremarkable and he is afebrile except he is slightly tachycardic. MOUTH: Oral mucosa normal. NECK: Supple without any abnormal masses or pulsations. CHEST: Symmetrical. LUNGS: Clear to anterior auscultation. HEART: Heart sounds normal. ABDOMEN: Soft. No masses. EXTREMITIES: No edema, clubbing. SKIN: Skin is dry. LYMPH NODES: No peripheral lymphadenopathy. LABORATORY DATA: His CBC shows WBC 5900 with 12% neutrophils, 7% bands, 23% lymphocytes and 42% mon ocytes with 8% myelocytes and 2% metamyelocytes and 1% blasts. Hemoglobin 8.6 and stable and platel ets are 15,000. His PT/INR is 1.2 and BNP is stable. IMPRESSION: 1. 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 2. Moderately severe pancytopenia. PLAN AND DISCUSSION: The patient is feeling fair. He is walking a little with physical therapy. H is performance status is probably 2. The question is being raised whether is considering second line treatment with Vidaza which would give nutritional support and also increase his walking with physical therapy. Dictated By: MACY MONIQUE/MALIK Conf#: [id number] DID#: [id number]
[2016-09-28] MEDS: AMLODIPINE 5 MG TAB PO SCH (20:13)
[2016-09-28] MEDS: INSULIN GLARGINE [LANtus] 3 ML PEN SC SCH (20:24)
[2016-09-29] VITALS (11 sets, daily range): BP systolic 127–149; BP diastolic 63–71; PULSE 62–78; RESP 16–20
[2016-09-29] MEDS: AL HYDROX/MG HYDROX/SIMETH 30 ML CUP PO SCH ×6 (01:23→20:15)
[2016-09-29] MEDS: ACCUCHECK XX SCH (01:28)
[2016-09-29] MEDS: PANTOPRAZOLE 40 MG INJ IV SCH ×2 (05:52→17:02)
[2016-09-29 07:47] LABS: HEMATOCRIT 25.7 % (42.0-52.0); HEMOGLOBIN 8.8 g/dl (14.0-18.0); MEAN CORPUSCULAR HEMOGLOBIN 29.4 pg (29.0-33.0); MEAN CORPUSCULAR HGB CONC 34.2 g/dl (32.0-37.0); MEAN CORPUSCULAR VOLUME 85.9 fl (82.0-101.0); RED BLOOD COUNT 2.99 10^6/ul (4.70-6.10); RED CELL DISTRIBUTION WIDTH 16.1 % (11.5-14.5); UNCORRECTED WBC 5.3 10^3/ul (4.8-10.8); WHITE BLOOD COUNT 5.3 10^3/ul (4.8-10.8)
[2016-09-29 07:53] LABS: CONDITION 1; LH ANALYZER COMMENTS 1; PLATELET COUNT 10 10^3/UL (140-440); SUSPECT 1
[2016-09-29] MEDS: INSULIN ASPART [NOVOLOG] 3 ML PEN SC SCH ×4 (08:00→20:25)
[2016-09-29 08:10] LABS: ALBUMIN 2.8 g/dl (3.3-4.9)
[2016-09-29 08:11] LABS: POTASSIUM 3.7 mmol/L (3.5-5.1)
[2016-09-29 08:13] LABS: ALBUMIN/GLOBULIN RATIO 0.7; BILIRUBIN,INDIRECT 0.2 mg/dl (0-1.1); BILIRUBIN,TOTAL 0.2 mg/dl (0.2-1.3); CREATININE 0.56 mg/dl (0.61-1.24); TOTAL PROTEIN 6.8 g/dl (6.1-8.1)
[2016-09-29] MEDS: SUCRALFATE 1 GM TAB PO SCH ×4 (08:27→20:13)
[2016-09-29] MEDS: NYSTATIN SUSP 5 ML CUP PO SCH ×4 (08:36→20:13)
[2016-09-29] MEDS: LEVOFLOXACIN 750 MG TABLET PO SCH (08:37)
[2016-09-29] MEDS: ALLOPURINOL 300 MG TAB PO SCH (08:37)
[2016-09-29] MEDS: DOCUSATE SODIUM 100 MG CAP PO SCH ×2 (08:37→20:14)
[2016-09-29] MEDS: FLUTICASONE 0.05% 16 GM NAS SPRAY NASAL SCH ×2 (08:37→12:29)
[2016-09-29] MEDS: POLYETHYLENE GLYCOL 17 GM PACKET PO SCH (08:42)
[2016-09-29] MEDS: MYLANTA PO SCH ×4 (09:00→20:14)
[2016-09-29] MEDS: DIPHENHYD PO SCH ×4 (09:00→20:14)
[2016-09-29] MEDS: LIDO PO SCH ×4 (09:00→20:14)
[2016-09-29 09:29] LABS: LYMPHOCYTES # 1.9 10^3/ul (0.8-2.9); MONOCYTE # 2.8 10^3/ul (0.3-0.9); MYELOCYTES # 0.1; NEUTROPHIL # 0.4 10^3/ul (1.6-7.5)
--- NOTE | 2016-09-29 10:30 | CONS ---
DATE OF ADMISSION: 08/31/2016 DATE OF CONSULTATION: CHIEF COMPLAINT: No history of vomiting, no history of diarrhea. HISTORY OF PRESENT ILLNESS: The patient had upper endoscopy done for hematemesis, large ulcer note d below the GE junction. Because of the persistent bleeding, patient underwent a mesenteric angiogr am and embolization of the left gastric artery. Since then, he has remained stable. Hemoglobin yes terday 8.8, today is 8.5. He has been having no black stools. PHYSICAL EXAMINATION: CARDIOVASCULAR: Normal heart sounds. RESPIRATORY: Normal breath sounds. ABDOMEN: Showed a soft abdomen with no palpable masses, no tenderness, no distention. RECTAL: Deferred. LABORATORY DATA: Hemoglobin 8.5, platelet count which he always had, 48, because he has got acute m yelogenous leukemia. CLINICAL IMPRESSION: Status post upper gastrointestinal bleeding secondary to gastric ulcer. PLAN: Continue follow the patient closely. Continue Protonix IV. Once again, doctor, thank you for this consultation. cc: Dr. Boo Dictated By: ILYA GASCA/MALIK Conf#: [id number] DID#: [id number] CC: CESAR BOO MD;*EndCC*
--- NOTE | 2016-09-29 11:06 | PN ---
Date/Time of Note Date/Time of Note DATE: 09/29/16 TIME: 10:56 Assessment/Plan VTE Prophylaxis VTE Prophylaxis Intervention: SCD's Lines/Catheters IV Catheter Type (from Nrs): PICC Line Central line still needed: Yes (for IV acess ) Urinary Cath still in place: No Assessment/Plan Assessment/Plan 71 yo male with: 1. UGIB/Hematemesis: s/p EGD with hemoclipping followed by mesenteric angiogram yesterday with no source of acute bleeding found Hb has stable since pRBC transfusion last week, platelets at 10K today so getting 1 unit per Hematology Continue Protonix IV for now Tolerating mostly soft diet due to some odynophagia/sore throat. 2. 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 Neutropenia resolved for now and Hb stable today. Monitor thrombocytopenia closely as requiring transfusion, no further acute bleeding x 4 to 5 days now and getting platelets today for plts down to 10K Per Hematology plan to start Vidaza today or sometimes this week so patient transferring to 4 wset today. 3. Diabetes mellitus, with associated neuropathy manifest by numbness in both feet. BG better controlled. BG stable, once better po intake, increase dosing of Lantus back up to 15 units qhs if needed and continue SSI. Zofran as needed for Nausea 4. Chronic benign positional vertigo. Continue Meclizine PRN 5. Gastroesophageal reflux disease/Gastric Ulcer s/p episode of bleeding. On Protonix IV BID per Dr John 6. Hypertension: on Norvasc. 7. Oral mucosa irritation, cold sore and odynophagia: Continue Abreva and mouth wash, Nystatin. improving 8. Klebsiella Pneumoniae UTI. on Levaquin now based on sensitivities. Prophylaxis. Sequential compression devices to lower extremity for DVT prevention, PPI for GI ppx DISPOSITION: S/p induction chemo, following counts, Bone Marrow bx 09/19, with poor risk AML and still with residual disease. To start another round of chemo this week with Vidaza Subjective 24 Hr Interval Summary Free Text/Dictation Patient doing better and remains stable, afebrile, still thrombocytopenic Will be getting 1 units pRBC given UGIB episode and know gastric ulcer Transferring to [facility] for chemo Exam/Review of Systems Vital Signs Vitals Vital Signs Date Time Temp Pulse Resp B/P Pulse Ox O2 Delivery O2 Flow Rate FiO2 09/29/16 08:47 62 09/29/16 07:54 98.3 18 143/67 97 09/28/16 20:19 Room Air 09/26/16 23:57 2.0 Intake and Output 09/28/16 09/28/16 09/29/16 15:00 23:00 07:00 Intake Total 1500 ml 150 ml Output Total 1550 ml 600 ml Balance -50 ml -450 ml Exam Constitutional: alert, frail, oriented, other (alopecia now ) Respiratory: clear to auscultation, normal air movement Cardiovascular: nl pulses, regular rate and rhythm Gastrointestinal: non-tender, soft Musculoskeletal: nl extremities to inspection Extremities: normal pulses, other (no edema, clubbing or cyanosis ) Neurological: TEST K[employer] ECONOMIST II-XII intact, nl mental status, nl speech, other ( generalized weakness ) Results Result Diagram: 09/29/16 0640 09/29/16 0640 Results 24 hrs Laboratory Tests Test 09/28/16 12:04 09/28/16 17:48 09/28/16 20:19 09/29/16 03:20 Bedside Glucose 135 169 192 Stool Occult Blood POSITIVE Test 09/29/16 06:40 09/29/16 08:26 Alanine Aminotransferase (ALT/SGPT) 17 Albumin 2.8 L Albumin/Globulin Ratio 0.70 Alkaline Phosphatase 83 Anion Gap 12 Aspartate Amino Transf (AST/SGOT) 16 Basophils # Basophils % Blast Cells % 3.0 H Blastocytes # 0.2 Blood Morphology Comment Blood Urea Nitrogen 5 L Calcium Level 8.0 L Carbon Dioxide Level 28 Chloride Level 101 Creatinine 0.56 L Direct Bilirubin 0.00 Eosinophils # Eosinophils % Globulin 4.00 H Glucose Level 143 # Hematocrit 25.7 L Hemoglobin 8.8 L Indirect Bilirubin 0.2 Lymphocytes # 1.9 Lymphocytes % 35.0 Mean Corpuscular Hemoglobin 29.4 Mean Corpuscular Hemoglobin Concent 34.2 Mean Corpuscular Volume 85.9 Mean Platelet Volume 8.0 Monocytes # 2.8 H Monocytes % 53.0 H Myelocytes # 0.1 Myelocytes % 1.0 H Neutrophils # 0.4 L Neutrophils % 7.0 L Nucleated Red Blood Cells # Nucleated Red Blood Cells % Platelet Count 10 #*L Potassium Level 3.7 Reactive Lymphocytes % 1.0 Red Blood Count 2.99 L Red Cell Distribution Width 16.1 H Sodium Level 137 Total Bilirubin 0.2 Total Protein 6.8 White Blood Count 5.3 Bedside Glucose 140 Medications Medications Current Medications Miscellaneous Information 1 ea NOTE XX ; Start 08/31/16 at 02:00 Glucose (Glutose) 15 gm Q15M PRN PO DECREASED GLUCOSE; Start 08/31/16 at 02:00 Glucose (Glutose) 22.5 gm Q15M PRN PO DECREASED GLUCOSE; Start 08/31/16 at 02:00 Dextrose (D50w Syringe) 25 ml Q15M PRN IV DECREASED GLUCOSE Last administered on 09/25/16 12:29; Admin Dose 25 ML; Start 08/31/16 at 02:00 Dextrose (D50w Syringe) 50 ml Q15M PRN IV DECREASED GLUCOSE; Start 08/31/16 at 02:00 Glucagon (Glucagen) 1 mg Q15M PRN IM DECREASED GLUCOSE; Start 08/31/16 at 02:00 Glucose (Glutose) 15 gm Q15M PRN BUCCAL DECREASED GLUCOSE; Start 08/31/16 at 02: 00 Fluticasone Propionate (Flonase 0.05% Nasal) 2 spray DAILY NASAL Last administered on 09/28/16 08:22; Admin Dose 2 SPRAY; Start 08/31/16 at 09:00 Ondansetron HCl (Zofran Inj) 4 mg Q6H PRN IV NAUSEA AND/OR VOMITING Last administered on 09/24/16 19:05; Admin Dose 4 MG; Start 09/01/16 at 11:30 Diphenhydramine HCl (Benadryl) 25 mg Q6H PRN PO ITCHING Last administered on 05:22; Admin Dose 25 MG; Start 09/01/16 at 11:30 Guaifenesin/ Dextromethorphan (Robitussin Dm Liquid Cup) 10 ml Q4H PRN PO COUGH Last administered on 09/22/16 09:40; Admin Dose 10 ML; Start 09/02/16 at 14:00 Allopurinol (Zyloprim) 300 mg DAILY PO Last administered on 09/29/16 08:37; Admin Dose 300 MG; Start 09/04/16 at 16:30 IV Flush (NS 10 ml) 10 ml PRN PRN IV IV PROTOCOL; Start 09/05/16 at 12:30 Bisacodyl (Dulcolax Supp) 10 mg DAILY PRN [place] CONSTIPATION; Start 09/08/16 at 12 :00 Magnesium Hydroxide (Milk Of Mag) 30 ml DAILY PRN PO CONSTIPATION Last administered on 09/09/16 06:25; Admin Dose 30 ML; Start 09/08/16 at 12:00 Polyethylene Glycol (Miralax) 17 gm DAILY PO Last administered on 09/28/16 08: 22; Admin Dose 17 GM; Start 09/08/16 at 12:00 Docusate Sodium (Colace) 100 mg BID PO Last administered on 09/29/16 08:37; Admin Dose 100 MG; Start 09/08/16 at 21:00 Phenol (Cepastat Lozenge) 1 lozenge Q1H PRN MT SORE THROAT Last administered on 09/17/16 20:16; Admin Dose 1 LOZENGE; Start 09/08/16 at 12:00 Amlodipine Besylate (Norvasc) 5 mg QHS PO Last administered on 09/28/16 20:13; Admin Dose 5 MG; Start 09/11/16 at 21:00 Miscellaneous Medication (Bax Susp) 30 ml QID PO Last administered on 09/28/16 21:12; Admin Dose 30 ML; Start 09/13/16 at 13:00 Nystatin (Nystatin Susp) 5 ml QID PO Last administered on 09/29/16 08:36; Admin Dose 5 ML; Start 09/14/16 at 17:00 Insulin Glargine (Lantus) 7.5 unit QHS SC Last administered on 09/28/16 20:24; Admin Dose 7.5 UNIT; Start 09/18/16 at 21:00 Diagnostic Test (Pha) (Accucheck) 1 ea 02 XX Last administered on 09/25/16 01: 44; Admin Dose 1 EA; Start 09/23/16 at 02:00 Acetaminophen 650 mg 650 mg Q6H PRN [place] PAIN OR TEMP ABOVE 38C Last administered on 09/23/16 18:24; Admin Dose 650 MG; Start 09/23/16 at 18:00 Dextrose/Sodium Chloride (D5-NS) 1,000 ml @ 50 mls/hr Q20H IV Last administered on 09/28/16 21:17; Admin Dose 50 MLS/HR; Start 09/25/16 at 13:00 Al Hydrox/Mg Hydrox/Simethicone (Mag-Al Plus) 30 ml Q4 PO Last administered on 09/29/16 08:44; Admin Dose 30 ML; Start 09/25/16 at 15:00 Pantoprazole (Protonix Iv) 40 mg BID@06,18 IV Last administered on 09/29/16 05: 52; Admin Dose 40 MG; Start 09/26/16 at 18:00 Levofloxacin (Levaquin) 750 mg DAILY@09 PO Last administered on 09/29/16 08:37 ; Admin Dose 750 MG; Start 09/28/16 at 09:00 TAM ROSE Sep 29, 2016 11:06
--- NOTE | 2016-09-29 14:22 | CONS ---
Date/Time of Note Date/Time of Note DATE: 09/29/16 TIME: 14:13 Assessment/Plan Assessment/Plan Chief Complaint/Hosp Course 71 yo with CMML who is currently off therapy admitted for symptomatic anemia and thrombocytopenia. 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 Pt has completed 7+3 and tolerated chemotherapy well thus far. Preliminary report of Day 14 bone marrow still shows residual disease. Given patient is too weak for re-induction chemotherapy will proceed with Vidaza, hypomethylating agent when patient counts recover. 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 Order written. Will start Vidaza once counts recover a little. pt too thrombocytopenic to start treatment. will need platelet transfusion today. -Continue allopurinol -Patient underwent EGD on 09/23/16 that demonstrated gastric ulcer covered by clot s/p hemoclipping, now s/p mesenteric angiogram and embolization of the left gastric artery. Patient was in the ICU, now back on med surg floor. Hematemesis resolved. Once stable, please transfer to 4th floor oncology floor possibly Thursday for Vidaza. -Patient will need to stay inpatient for 3-4 weeks to await count recovery and monitor for infection, transfusions, etc. Plt goal > 50K if bleeding, > 20K if febrile, otherwise >10K. -Discussed with patient's daughter Tawny ([phone]) who was updated on situation and plan Consultation Date/Type/Reason Admit Date/Time Aug 31, 2016 at 00:38 Initial Consult Date 09/02/16 Type of Consultation: Hematology/Oncology Reason for Consultation AML Referring Provider: TAM ROSE 24 HR Interval Summary Free Text/Dictation pt with platelet count of 10. to get platelet transfusion today Exam/Review of Systems Vital Signs Vitals Vital Signs Date Time Temp Pulse Resp B/P Pulse Ox O2 Delivery O2 Flow Rate FiO2 09/29/16 12:19 67 09/29/16 11:32 98.0 18 130/67 99 09/28/16 20:19 Room Air 09/26/16 23:57 2.0 Intake and Output 09/28/16 09/28/16 09/29/16 15:00 23:00 07:00 Intake Total 1500 ml 150 ml Output Total 1550 ml 600 ml Balance -50 ml -450 ml Exam Constitutional: alert, oriented Psych: no complaints Head: normocephalic Eyes: nl conjunctiva ENMT: nl external ears & nose, nl lips & teeth Neck: non-tender, supple Respiratory: clear to auscultation Cardiovascular: nl pulses, regular rate and rhythm Gastrointestinal: soft Musculoskeletal: nl extremities to inspection, nl gait and stance Extremities: normal pulses Results Result Diagram: 09/29/16 0640 09/29/16 0640 Results 24 hrs Laboratory Tests Test 09/28/16 17:48 09/28/16 20:19 09/29/16 03:20 09/29/16 06:40 Bedside Glucose 169 192 Stool Occult Blood POSITIVE Alanine Aminotransferase (ALT/SGPT) 17 Albumin 2.8 L Albumin/Globulin Ratio 0.70 Alkaline Phosphatase 83 Anion Gap 12 Aspartate Amino Transf (AST/SGOT) 16 Basophils # Basophils % Blast Cells % 3.0 H Blastocytes # 0.2 Blood Morphology Comment Blood Urea Nitrogen 5 L Calcium Level 8.0 L Carbon Dioxide Level 28 Chloride Level 101 Creatinine 0.56 L Direct Bilirubin 0.00 Eosinophils # Eosinophils % Globulin 4.00 H Glucose Level 143 # Hematocrit 25.7 L Hemoglobin 8.8 L Indirect Bilirubin 0.2 Lymphocytes # 1.9 Lymphocytes % 35.0 Mean Corpuscular Hemoglobin 29.4 Mean Corpuscular Hemoglobin Concent 34.2 Mean Corpuscular Volume 85.9 Mean Platelet Volume 8.0 Monocytes # 2.8 H Monocytes % 53.0 H Myelocytes # 0.1 Myelocytes % 1.0 H Neutrophils # 0.4 L Neutrophils % 7.0 L Nucleated Red Blood Cells # Nucleated Red Blood Cells % Platelet Count 10 #*L Potassium Level 3.7 Reactive Lymphocytes % 1.0 Red Blood Count 2.99 L Red Cell Distribution Width 16.1 H Sodium Level 137 Total Bilirubin 0.2 Total Protein 6.8 White Blood Count 5.3 Test 09/29/16 08:26 09/29/16 11:38 Bedside Glucose 140 154 Medications Medications Current Medications Miscellaneous Information 1 ea NOTE XX ; Start 08/31/16 at 02:00 Glucose (Glutose) 15 gm Q15M PRN PO DECREASED GLUCOSE; Start 08/31/16 at 02:00 Glucose (Glutose) 22.5 gm Q15M PRN PO DECREASED GLUCOSE; Start 08/31/16 at 02:00 Dextrose (D50w Syringe) 25 ml Q15M PRN IV DECREASED GLUCOSE Last administered on 09/25/16 12:29; Admin Dose 25 ML; Start 08/31/16 at 02:00 Dextrose (D50w Syringe) 50 ml Q15M PRN IV DECREASED GLUCOSE; Start 08/31/16 at 02:00 Glucagon (Glucagen) 1 mg Q15M PRN IM DECREASED GLUCOSE; Start 08/31/16 at 02:00 Glucose (Glutose) 15 gm Q15M PRN BUCCAL DECREASED GLUCOSE; Start 08/31/16 at 02: 00 Fluticasone Propionate (Flonase 0.05% Nasal) 2 spray DAILY NASAL Last administered on 09/29/16 12:29; Admin Dose 2 SPRAY; Start 08/31/16 at 09:00 Ondansetron HCl (Zofran Inj) 4 mg Q6H PRN IV NAUSEA AND/OR VOMITING Last administered on 09/24/16 19:05; Admin Dose 4 MG; Start 09/01/16 at 11:30 Diphenhydramine HCl (Benadryl) 25 mg Q6H PRN PO ITCHING Last administered on 05:22; Admin Dose 25 MG; Start 09/01/16 at 11:30 Guaifenesin/ Dextromethorphan (Robitussin Dm Liquid Cup) 10 ml Q4H PRN PO COUGH Last administered on 09/22/16 09:40; Admin Dose 10 ML; Start 09/02/16 at 14:00 Allopurinol (Zyloprim) 300 mg DAILY PO Last administered on 09/29/16 08:37; Admin Dose 300 MG; Start 09/04/16 at 16:30 IV Flush (NS 10 ml) 10 ml PRN PRN IV IV PROTOCOL; Start 09/05/16 at 12:30 Bisacodyl (Dulcolax Supp) 10 mg DAILY PRN IN CONSTIPATION; Start 09/08/16 at 12 :00 Magnesium Hydroxide (Milk Of Mag) 30 ml DAILY PRN PO CONSTIPATION Last administered on 09/09/16 06:25; Admin Dose 30 ML; Start 09/08/16 at 12:00 Polyethylene Glycol (Miralax) 17 gm DAILY PO Last administered on 09/28/16 08: 22; Admin Dose 17 GM; Start 09/08/16 at 12:00 Docusate Sodium (Colace) 100 mg BID PO Last administered on 09/29/16 08:37; Admin Dose 100 MG; Start 09/08/16 at 21:00 Phenol (Cepastat Lozenge) 1 lozenge Q1H PRN MT SORE THROAT Last administered on 09/17/16 20:16; Admin Dose 1 LOZENGE; Start 09/08/16 at 12:00 Amlodipine Besylate (Norvasc) 5 mg QHS PO Last administered on 09/28/16 20:13; Admin Dose 5 MG; Start 09/11/16 at 21:00 Miscellaneous Medication (Bax Susp) 30 ml QID PO Last administered on 09/29/16 12:28; Admin Dose 30 ML; Start 09/13/16 at 13:00 Nystatin (Nystatin Susp) 5 ml QID PO Last administered on 09/29/16 12:28; Admin Dose 5 ML; Start 09/14/16 at 17:00 Insulin Glargine (Lantus) 7.5 unit QHS SC Last administered on 09/28/16 20:24; Admin Dose 7.5 UNIT; Start 09/18/16 at 21:00 Diagnostic Test (Pha) (Accucheck) 1 ea 02 XX Last administered on 09/25/16 01: 44; Admin Dose 1 EA; Start 09/23/16 at 02:00 Acetaminophen 650 mg 650 mg Q6H PRN IN PAIN OR TEMP ABOVE 38C Last administered on 09/23/16 18:24; Admin Dose 650 MG; Start 09/23/16 at 18:00 Dextrose/Sodium Chloride (D5-NS) 1,000 ml @ 50 mls/hr Q20H IV Last administered on 09/28/16 21:17; Admin Dose 50 MLS/HR; Start 09/25/16 at 13:00 Al Hydrox/Mg Hydrox/Simethicone (Mag-Al Plus) 30 ml Q4 PO Last administered on 09/29/16 12:28; Admin Dose 30 ML; Start 09/25/16 at 15:00 Pantoprazole (Protonix Iv) 40 mg BID@06,18 IV Last administered on 09/29/16 05: 52; Admin Dose 40 MG; Start 09/26/16 at 18:00 Levofloxacin (Levaquin) 750 mg DAILY@09 PO Last administered on 09/29/16 08:37 ; Admin Dose 750 MG; Start 09/28/16 at 09:00 MISHA FOREMAN M.D. Sep 29, 2016 14:22
[2016-09-29] MEDS: GUAIFENESIN/DM 5ML CUP PO PRN (16:38)
[2016-09-29] MEDS: DEXTROSE 5%-0.9% NACL 1,000 ML IV SCH ×2 (17:00→20:38)
[2016-09-29] MEDS: DIPHENHYDRAMINE 25 MG CAP PO PRN (20:13)
[2016-09-29] MEDS: AMLODIPINE 5 MG TAB PO SCH (20:14)
[2016-09-29] MEDS: INSULIN GLARGINE [LANtus] 3 ML PEN SC SCH (20:26)
[2016-09-30] MEDS: AL HYDROX/MG HYDROX/SIMETH 30 ML CUP PO SCH ×6 (00:46→21:58)
[2016-09-30] MEDS: ACCUCHECK XX SCH (02:00)
[2016-09-30] MEDS: PANTOPRAZOLE 40 MG INJ IV SCH ×2 (05:19→17:40)
[2016-09-30 06:20] VITALS: BP 136/65; RESP 17
[2016-09-30 07:44] VITALS: BP 140/65; RESP 18
[2016-09-30 07:54] LABS: HEMATOCRIT 25.7 % (42.0-52.0); MEAN CORPUSCULAR HEMOGLOBIN 29.9 pg (29.0-33.0); MEAN CORPUSCULAR VOLUME 85.5 fl (82.0-101.0); MEAN PLATELET VOLUME 7.1 fl (7.4-10.4); PLATELET COUNT 54 10^3/UL (140-440); RED BLOOD COUNT 3.01 10^6/ul (4.70-6.10); UNCORRECTED WBC 5.6 10^3/ul (4.8-10.8); WHITE BLOOD COUNT 5.6 10^3/ul (4.8-10.8)
[2016-09-30 08:00] LABS: ALBUMIN 2.9 g/dl (3.3-4.9)
[2016-09-30 08:01] LABS: POTASSIUM 3.6 mmol/L (3.5-5.1)
[2016-09-30 08:03] LABS: ALBUMIN/GLOBULIN RATIO 0.69; BILIRUBIN,INDIRECT 0.2 mg/dl (0-1.1); BILIRUBIN,TOTAL 0.2 mg/dl (0.2-1.3); CREATININE 0.53 mg/dl (0.61-1.24); TOTAL PROTEIN 7.1 g/dl (6.1-8.1)
[2016-09-30 08:04] LABS: CALCIUM 8.2 mg/dl (8.4-10.2)
[2016-09-30] MEDS: LIDO PO SCH ×4 (08:23→21:59)
[2016-09-30] MEDS: ALLOPURINOL 300 MG TAB PO SCH (08:23)
[2016-09-30] MEDS: MYLANTA PO SCH ×4 (08:23→21:59)
[2016-09-30] MEDS: NYSTATIN SUSP 5 ML CUP PO SCH ×4 (08:23→21:58)
[2016-09-30] MEDS: SUCRALFATE 1 GM TAB PO SCH ×4 (08:23→22:09)
[2016-09-30] MEDS: FLUTICASONE 0.05% 16 GM NAS SPRAY NASAL SCH (08:23)
[2016-09-30] MEDS: DIPHENHYD PO SCH ×4 (08:23→21:59)
[2016-09-30 08:25] LABS: CONDITION 1; LH ANALYZER COMMENTS 1; SUSPECT 1
[2016-09-30] MEDS: INSULIN ASPART [NOVOLOG] 3 ML PEN SC SCH ×4 (08:31→21:00)
[2016-09-30] MEDS: DOCUSATE SODIUM 100 MG CAP PO SCH ×2 (08:32→21:00)
[2016-09-30] MEDS: POLYETHYLENE GLYCOL 17 GM PACKET PO SCH (08:32)
[2016-09-30] MEDS: LEVOFLOXACIN 750 MG TABLET PO SCH (09:37)
--- NOTE | 2016-09-30 09:55 | PN ---
Date/Time of Note Date/Time of Note DATE: 09/30/16 TIME: 09:48 Assessment/Plan VTE Prophylaxis VTE Prophylaxis Intervention: anti-embolic stocking Lines/Catheters IV Catheter Type (from Nrsg): PICC Line Central line still needed: Yes Urinary Cath still in place: No Assessment/Plan Assessment/Plan 1. gi: s/p UGIB with egd and clipping, follow up mesenteric angio shows no furtehr bleed, cont med mange 2. heme: aml transformation of cml, suboptimal response to chemo, appreciate heme recs' 3. increase activity Subjective 24 Hr Interval Summary Free Text/Dictation no complaints no pain] \wants to eat Exam/Review of Systems Vital Signs Vitals Vital Signs Date Time Temp Pulse Resp B/P Pulse Ox O2 Delivery O2 Flow Rate FiO2 09/30/16 07:44 98.1 72 18 140/65 100 09/28/16 20:19 Room Air 09/26/16 23:57 2.0 Intake and Output 09/29/16 09/29/16 09/30/16 15:00 23:00 07:00 Intake Total 1700 ml 1350 ml Output Total 1450 ml 1300 ml Balance 250 ml 50 ml Exam Constitutional: alert Psych: no complaints Respiratory: crackles/rales (bilat base, but no sob ?atelectasis) Cardiovascular: regular rate and rhythm Gastrointestinal: non-tender, soft Results Result Diagram: 09/30/16 0650 09/30/16 0650 Results 24 hrs Laboratory Tests Test 09/29/16 11:38 09/29/16 17:13 09/29/16 20:19 09/30/16 02:29 Bedside Glucose 154 241 H 214 128 Test 09/30/16 06:50 09/30/16 07:56 Alanine Aminotransferase (ALT/SGPT) 17 Albumin 2.9 L Albumin/Globulin Ratio 0.69 Alkaline Phosphatase 83 Anion Gap 15 Aspartate Amino Transf (AST/SGOT) 15 Basophils # Basophils % Blood Morphology Comment Blood Urea Nitrogen 4 L Calcium Level 8.2 L Carbon Dioxide Level 26 Chloride Level 99 Creatinine 0.53 L Direct Bilirubin 0.00 Eosinophils # Eosinophils % Globulin 4.20 H Glucose Level 175 Hematocrit 25.7 L Hemoglobin 9.0 L Indirect Bilirubin 0.2 Lymphocytes # Lymphocytes % Mean Corpuscular Hemoglobin 29.9 Mean Corpuscular Hemoglobin Concent 35.0 Mean Corpuscular Volume 85.5 Mean Platelet Volume 7.1 L Monocytes # Neutrophils # Neutrophils % Nucleated Red Blood Cells # Nucleated Red Blood Cells % Platelet Count 54 #L Potassium Level 3.6 Red Blood Count 3.01 L Red Cell Distribution Width 16.0 H Sodium Level 136 Total Bilirubin 0.2 Total Protein 7.1 White Blood Count 5.6 Bedside Glucose 174 Medications Medications Current Medications Miscellaneous Information 1 ea NOTE XX ; Start 08/31/16 at 02:00 Glucose (Glutose) 15 gm Q15M PRN PO DECREASED GLUCOSE; Start 08/31/16 at 02:00 Glucose (Glutose) 22.5 gm Q15M PRN PO DECREASED GLUCOSE; Start 08/31/16 at 02:00 Dextrose (D50w Syringe) 25 ml Q15M PRN IV DECREASED GLUCOSE Last administered on 09/25/16 12:29; Admin Dose 25 ML; Start 08/31/16 at 02:00 Dextrose (D50w Syringe) 50 ml Q15M PRN IV DECREASED GLUCOSE; Start 08/31/16 at 02:00 Glucagon (Glucagen) 1 mg Q15M PRN IM DECREASED GLUCOSE; Start 08/31/16 at 02:00 Glucose (Glutose) 15 gm Q15M PRN BUCCAL DECREASED GLUCOSE; Start 08/31/16 at 02: 00 Fluticasone Propionate (Flonase 0.05% Nasal) 2 spray DAILY NASAL Last administered on 09/30/16 08:23; Admin Dose 2 SPRAY; Start 08/31/16 at 09:00 Ondansetron HCl (Zofran Inj) 4 mg Q6H PRN IV NAUSEA AND/OR VOMITING Last administered on 09/24/16 19:05; Admin Dose 4 MG; Start 09/01/16 at 11:30 Diphenhydramine HCl (Benadryl) 25 mg Q6H PRN PO ITCHING Last administered on 20:13; Admin Dose 25 MG; Start 09/01/16 at 11:30 Guaifenesin/ Dextromethorphan (Robitussin Dm Liquid Cup) 10 ml Q4H PRN PO COUGH Last administered on 09/29/16 16:38; Admin Dose 10 ML; Start 09/02/16 at 14:00 Allopurinol (Zyloprim) 300 mg DAILY PO Last administered on 09/30/16 08:23; Admin Dose 300 MG; Start 09/04/16 at 16:30 IV Flush (NS 10 ml) 10 ml PRN PRN IV IV PROTOCOL; Start 09/05/16 at 12:30 Bisacodyl (Dulcolax Supp) 10 mg DAILY PRN [place] CONSTIPATION; Start 09/08/16 at 12 :00 Magnesium Hydroxide (Milk Of Mag) 30 ml DAILY PRN PO CONSTIPATION Last administered on 09/09/16 06:25; Admin Dose 30 ML; Start 09/08/16 at 12:00 Polyethylene Glycol (Miralax) 17 gm DAILY PO Last administered on 09/28/16 08: 22; Admin Dose 17 GM; Start 09/08/16 at 12:00 Docusate Sodium (Colace) 100 mg BID PO Last administered on 09/29/16 08:37; Admin Dose 100 MG; Start 09/08/16 at 21:00 Phenol (Cepastat Lozenge) 1 lozenge Q1H PRN MT SORE THROAT Last administered on 09/17/16 20:16; Admin Dose 1 LOZENGE; Start 09/08/16 at 12:00 Amlodipine Besylate (Norvasc) 5 mg QHS PO Last administered on 09/29/16 20:14; Admin Dose 5 MG; Start 09/11/16 at 21:00 Miscellaneous Medication (Bax Susp) 30 ml QID PO Last administered on 09/30/16 08:23; Admin Dose 30 ML; Start 09/13/16 at 13:00 Nystatin (Nystatin Susp) 5 ml QID PO Last administered on 09/30/16 08:23; Admin Dose 5 ML; Start 09/14/16 at 17:00 Insulin Glargine (Lantus) 7.5 unit QHS SC Last administered on 09/29/16 20:26; Admin Dose 7.5 UNIT; Start 09/18/16 at 21:00 Diagnostic Test (Pha) (Accucheck) 1 ea 02 XX Last administered on 09/25/16 01: 44; Admin Dose 1 EA; Start 09/23/16 at 02:00 Acetaminophen 650 mg 650 mg Q6H PRN [place] PAIN OR TEMP ABOVE 38C Last administered on 09/23/16 18:24; Admin Dose 650 MG; Start 09/23/16 at 18:00 Dextrose/Sodium Chloride (D5-NS) 1,000 ml @ 50 mls/hr Q20H IV Last administered on 09/29/16 20:38; Admin Dose 50 MLS/HR; Start 09/25/16 at 13:00 Al Hydrox/Mg Hydrox/Simethicone (Mag-Al Plus) 30 ml Q4 PO Last administered on 09/30/16 05:19; Admin Dose 30 ML; Start 09/25/16 at 15:00 Pantoprazole (Protonix Iv) 40 mg BID@06,18 IV Last administered on 09/30/16 05: 19; Admin Dose 40 MG; Start 09/26/16 at 18:00 Levofloxacin (Levaquin) 750 mg DAILY@09 PO Last administered on 09/30/16 09:37 ; Admin Dose 750 MG; Start 09/28/16 at 09:00 RAFFY WRAY MD Sep 30, 2016 09:55
[2016-09-30 10:14] LABS: BASOPHIL # 0.1 10^3/ul (0.0-0.1); EOSINOPHILS # 0.2 10^3/ul (0.0-0.5); LYMPHOCYTES # 2.1 10^3/ul (0.8-2.9); MONOCYTE # 2.2 10^3/ul (0.3-0.9); MYELOCYTES # 0.2; NEUTROPHIL # 0.5 10^3/ul (1.6-7.5); PLATELET ESTIMATE PLT APPEAR DECREASED
--- NOTE | 2016-09-30 10:48 | CONS ---
Date/Time of Note Date/Time of Note DATE: 09/30/16 TIME: 10:45 Assessment/Plan Assessment/Plan Chief Complaint/Hosp Course 71 yo with CMML who is currently off therapy admitted for symptomatic anemia and thrombocytopenia. 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 Pt has completed 7+3 and tolerated chemotherapy well thus far. Preliminary report of Day 14 bone marrow still shows residual disease. Given patient is too weak for re-induction chemotherapy will proceed with Vidaza, hypomethylating agent when patient counts recover. 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 plan to start tomorrow. platelet ok. . -Continue allopurinol -Patient underwent EGD on 09/23/16 that demonstrated gastric ulcer covered by clot s/p hemoclipping, now s/p mesenteric angiogram and embolization of the left gastric artery. Patient was in the ICU, now back on med surg floor. Hematemesis resolved. Once stable, please transfer to 4th floor oncology floor possibly tomorrow -Patient will need to stay inpatient for 3-4 weeks to await count recovery and monitor for infection, transfusions, etc. Plt goal > 50K if bleeding, > 20K if febrile, otherwise >10K. -Discussed case with trauma surgery who states that once patient receives his Vidaza therapy and he is transferred to the [facility], they will at that time make a decision as to when they can operate -Discussed with patient's daughter Tawny ([phone]) who was updated on situation and plan Approximately 40 min were spent at patient's bedside and in coordination of his care Consultation Date/Type/Reason Admit Date/Time Aug 31, 2016 at 00:38 Initial Consult Date 09/02/16 Type of Consultation: Hematology/Oncology Reason for Consultation AML Referring Provider: TAM ROSE 24 HR Interval Summary Free Text/Dictation patient received platelet transfusion yesterday. responded well. no bleeding Exam/Review of Systems Vital Signs Vitals Vital Signs Date Time Temp Pulse Resp B/P Pulse Ox O2 Delivery O2 Flow Rate FiO2 09/30/16 07:44 98.1 72 18 140/65 100 09/28/16 20:19 Room Air 09/26/16 23:57 2.0 Intake and Output 09/29/16 09/29/16 09/30/16 15:00 23:00 07:00 Intake Total 1700 ml 1350 ml Output Total 1450 ml 1300 ml Balance 250 ml 50 ml Exam Constitutional: alert, frail, oriented Head: normocephalic Eyes: nl conjunctiva ENMT: nl external ears & nose Neck: non-tender, supple Respiratory: clear to auscultation Cardiovascular: regular rate and rhythm Gastrointestinal: soft Musculoskeletal: nl extremities to inspection, nl gait and stance Extremities: normal pulses Results Result Diagram: 09/30/16 0650 09/30/16 0650 Results 24 hrs Laboratory Tests Test 09/29/16 11:38 09/29/16 17:13 09/29/16 20:19 09/30/16 02:29 Bedside Glucose 154 241 H 214 128 Test 09/30/16 06:50 09/30/16 07:56 Alanine Aminotransferase (ALT/SGPT) 17 Albumin 2.9 L Albumin/Globulin Ratio 0.69 Alkaline Phosphatase 83 Anion Gap 15 Aspartate Amino Transf (AST/SGOT) 15 Band Neutrophils % 1.0 Basophils # 0.1 Basophils % 1.0 Blast Cells % 3.0 H Blastocytes # 0.2 Blood Morphology Comment Blood Urea Nitrogen 4 L Calcium Level 8.2 L Carbon Dioxide Level 26 Chloride Level 99 Creatinine 0.53 L Direct Bilirubin 0.00 Eosinophils # 0.2 Eosinophils % 4.0 Globulin 4.20 H Glucose Level 175 Hematocrit 25.7 L Hemoglobin 9.0 L Indirect Bilirubin 0.2 Lymphocytes # 2.1 Lymphocytes % 37.0 Mean Corpuscular Hemoglobin 29.9 Mean Corpuscular Hemoglobin Concent 35.0 Mean Corpuscular Volume 85.5 Mean Platelet Volume 7.1 L Metamyelocytes # 0.1 Metamyelocytes % 1.0 H Monocytes # 2.2 H Monocytes % 40.0 H Myelocytes # 0.2 Myelocytes % 3.0 H Neutrophils # 0.5 L Neutrophils % 9.0 L Nucleated Red Blood Cells # Nucleated Red Blood Cells % Platelet Count 54 #L Platelet Estimate PLT APPEAR DECREASED Potassium Level 3.6 Promyelocytes # 0.1 Promyelocytes % 1.0 H Red Blood Count 3.01 L Red Cell Distribution Width 16.0 H Sodium Level 136 Total Bilirubin 0.2 Total Protein 7.1 White Blood Count 5.6 Bedside Glucose 174 Medications Medications Current Medications Miscellaneous Information 1 ea NOTE XX ; Start 08/31/16 at 02:00 Glucose (Glutose) 15 gm Q15M PRN PO DECREASED GLUCOSE; Start 08/31/16 at 02:00 Glucose (Glutose) 22.5 gm Q15M PRN PO DECREASED GLUCOSE; Start 08/31/16 at 02:00 Dextrose (D50w Syringe) 25 ml Q15M PRN IV DECREASED GLUCOSE Last administered on 09/25/16 12:29; Admin Dose 25 ML; Start 08/31/16 at 02:00 Dextrose (D50w Syringe) 50 ml Q15M PRN IV DECREASED GLUCOSE; Start 08/31/16 at 02:00 Glucagon (Glucagen) 1 mg Q15M PRN IM DECREASED GLUCOSE; Start 08/31/16 at 02:00 Glucose (Glutose) 15 gm Q15M PRN BUCCAL DECREASED GLUCOSE; Start 08/31/16 at 02: 00 Fluticasone Propionate (Flonase 0.05% Nasal) 2 spray DAILY NASAL Last administered on 09/30/16 08:23; Admin Dose 2 SPRAY; Start 08/31/16 at 09:00 Ondansetron HCl (Zofran Inj) 4 mg Q6H PRN IV NAUSEA AND/OR VOMITING Last administered on 09/24/16 19:05; Admin Dose 4 MG; Start 09/01/16 at 11:30 Diphenhydramine HCl (Benadryl) 25 mg Q6H PRN PO ITCHING Last administered on 20:13; Admin Dose 25 MG; Start 09/01/16 at 11:30 Guaifenesin/ Dextromethorphan (Robitussin Dm Liquid Cup) 10 ml Q4H PRN PO COUGH Last administered on 09/29/16 16:38; Admin Dose 10 ML; Start 09/02/16 at 14:00 Allopurinol (Zyloprim) 300 mg DAILY PO Last administered on 09/30/16 08:23; Admin Dose 300 MG; Start 09/04/16 at 16:30 IV Flush (NS 10 ml) 10 ml PRN PRN IV IV PROTOCOL; Start 09/05/16 at 12:30 Bisacodyl (Dulcolax Supp) 10 mg DAILY PRN [place] CONSTIPATION; Start 09/08/16 at 12 :00 Magnesium Hydroxide (Milk Of Mag) 30 ml DAILY PRN PO CONSTIPATION Last administered on 09/09/16 06:25; Admin Dose 30 ML; Start 09/08/16 at 12:00 Polyethylene Glycol (Miralax) 17 gm DAILY PO Last administered on 09/28/16 08: 22; Admin Dose 17 GM; Start 09/08/16 at 12:00 Docusate Sodium (Colace) 100 mg BID PO Last administered on 09/29/16 08:37; Admin Dose 100 MG; Start 09/08/16 at 21:00 Phenol (Cepastat Lozenge) 1 lozenge Q1H PRN MT SORE THROAT Last administered on 09/17/16 20:16; Admin Dose 1 LOZENGE; Start 09/08/16 at 12:00 Amlodipine Besylate (Norvasc) 5 mg QHS PO Last administered on 09/29/16 20:14; Admin Dose 5 MG; Start 09/11/16 at 21:00 Miscellaneous Medication (Bax Susp) 30 ml QID PO Last administered on 09/30/16 08:23; Admin Dose 30 ML; Start 09/13/16 at 13:00 Nystatin (Nystatin Susp) 5 ml QID PO Last administered on 09/30/16 08:23; Admin Dose 5 ML; Start 09/14/16 at 17:00 Insulin Glargine (Lantus) 7.5 unit QHS SC Last administered on 09/29/16 20:26; Admin Dose 7.5 UNIT; Start 09/18/16 at 21:00 Diagnostic Test (Pha) (Accucheck) 1 ea 02 XX Last administered on 09/25/16 01: 44; Admin Dose 1 EA; Start 09/23/16 at 02:00 Acetaminophen 650 mg 650 mg Q6H PRN [place] PAIN OR TEMP ABOVE 38C Last administered on 09/23/16 18:24; Admin Dose 650 MG; Start 09/23/16 at 18:00 Dextrose/Sodium Chloride (D5-NS) 1,000 ml @ 50 mls/hr Q20H IV Last administered on 09/29/16 20:38; Admin Dose 50 MLS/HR; Start 09/25/16 at 13:00 Al Hydrox/Mg Hydrox/Simethicone (Mag-Al Plus) 30 ml Q4 PO Last administered on 09/30/16 05:19; Admin Dose 30 ML; Start 09/25/16 at 15:00 Pantoprazole (Protonix Iv) 40 mg BID@06,18 IV Last administered on 09/30/16 05: 19; Admin Dose 40 MG; Start 09/26/16 at 18:00 Levofloxacin (Levaquin) 750 mg DAILY@09 PO Last administered on 09/30/16 09:37 ; Admin Dose 750 MG; Start 09/28/16 at 09:00 MISHA FOREMAN M.D. Sep 30, 2016 10:48
[2016-09-30 11:35] VITALS: BP 141/67; RESP 18
[2016-09-30 15:55] VITALS: BP 127/64; RESP 18
[2016-09-30] MEDS: DEXTROSE 5%-0.9% NACL 1,000 ML IV SCH (16:08)
[2016-09-30 20:37] VITALS: BP 142/70; RESP 18
[2016-09-30] MEDS: INSULIN GLARGINE [LANtus] 3 ML PEN SC SCH (21:00)
[2016-09-30] MEDS: DIPHENHYDRAMINE 25 MG CAP PO PRN (22:00)
[2016-09-30] MEDS: AMLODIPINE 5 MG TAB PO SCH (22:00)
[2016-09-30] MEDS: GUAIFENESIN/DM 5ML CUP PO PRN (22:09)
[2016-10-01] VITALS (7 sets, daily range): BP systolic 118–149; BP diastolic 64–74; PULSE 80–82; RESP 16–22
[2016-10-01] MEDS: AL HYDROX/MG HYDROX/SIMETH 30 ML CUP PO SCH ×6 (00:27→20:30)
[2016-10-01] MEDS: ACCUCHECK XX SCH (02:00)
[2016-10-01] MEDS: PANTOPRAZOLE 40 MG INJ IV SCH ×2 (04:57→18:07)
[2016-10-01 06:08] LABS: HEMATOCRIT 25.7 % (42.0-52.0); HEMOGLOBIN 8.9 g/dl (14.0-18.0); MEAN CORPUSCULAR HEMOGLOBIN 29.4 pg (29.0-33.0); MEAN CORPUSCULAR HGB CONC 34.7 g/dl (32.0-37.0); MEAN CORPUSCULAR VOLUME 84.7 fl (82.0-101.0); MEAN PLATELET VOLUME 7.5 fl (7.4-10.4); PLATELET COUNT 37 10^3/UL (140-440); RED BLOOD COUNT 3.04 10^6/ul (4.70-6.10); UNCORRECTED WBC 5.3 10^3/ul (4.8-10.8); WHITE BLOOD COUNT 5.3 10^3/ul (4.8-10.8)
[2016-10-01 06:23] LABS: CONDITION 1; LH ANALYZER COMMENTS 1; POTASSIUM 3.8 mmol/L (3.5-5.1); SUSPECT 1
[2016-10-01 06:25] LABS: CREATININE 0.58 mg/dl (0.61-1.24)
[2016-10-01 06:26] LABS: ALBUMIN/GLOBULIN RATIO 0.73; BILIRUBIN,INDIRECT 0.2 mg/dl (0-1.1); BILIRUBIN,TOTAL 0.2 mg/dl (0.2-1.3); CALCIUM 8.4 mg/dl (8.4-10.2); TOTAL PROTEIN 7.1 g/dl (6.1-8.1)
[2016-10-01] MEDS: INSULIN ASPART [NOVOLOG] 3 ML PEN SC SCH ×4 (07:50→20:31)
[2016-10-01] MEDS: POLYETHYLENE GLYCOL 17 GM PACKET PO SCH (09:00)
[2016-10-01] MEDS: LIDO PO SCH ×4 (09:00→20:23)
[2016-10-01] MEDS: MYLANTA PO SCH ×4 (09:00→20:23)
[2016-10-01] MEDS: DIPHENHYD PO SCH ×4 (09:00→20:23)
[2016-10-01 09:33] LABS: EOSINOPHILS # 0.1 10^3/ul (0.0-0.5); LYMPHOCYTES # 1.7 10^3/ul (0.8-2.9); MONOCYTE # 2.7 10^3/ul (0.3-0.9); MYELOCYTES # 0.1; NEUTROPHIL # 0.6 10^3/ul (1.6-7.5)
[2016-10-01] MEDS: SUCRALFATE 1 GM TAB PO SCH ×4 (09:47→20:23)
[2016-10-01] MEDS: ALLOPURINOL 300 MG TAB PO SCH (09:47)
[2016-10-01] MEDS: DOCUSATE SODIUM 100 MG CAP PO SCH ×2 (09:47→20:31)
[2016-10-01] MEDS: NYSTATIN SUSP 5 ML CUP PO SCH ×4 (09:47→20:23)
[2016-10-01] MEDS: FLUTICASONE 0.05% 16 GM NAS SPRAY NASAL SCH (09:48)
[2016-10-01] MEDS: DEXTROSE 5%-0.9% NACL 1,000 ML IV SCH (09:55)
--- NOTE | 2016-10-01 10:43 | PN ---
Date/Time of Note Date/Time of Note DATE: 10/01/16 TIME: 10:18 Assessment/Plan VTE Prophylaxis VTE Prophylaxis Intervention: SCD's Lines/Catheters IV Catheter Type (from Nrs): PICC Line Central line still needed: Yes (for IV access and chemo) Urinary Cath still in place: No Assessment/Plan Assessment/Plan 71 yo male with: 1. 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 Monitor thrombocytopenia closely as requiring transfusion, no further acute bleeding x1 week Per Hematology trial of Vidaza for 2nd chemo round today as patient too weak for re-induction. 2. UGIB/Hematemesis: s/p EGD with hemoclipping followed by mesenteric angiogram yesterday with no source of acute bleeding found Hb has stable since pRBC transfusion last week, platelets being kept >10K with transfusions Continue Protonix bid Tolerating mostly soft diet due to some odynophagia/sore throat. 3. Diabetes mellitus, with associated neuropathy manifest by numbness in both feet. BG better controlled. BG stable, once better po intake, increase dosing of Lantus back up to 15 units qhs if needed and continue SSI. Zofran as needed for Nausea 4. Chronic benign positional vertigo. Continue Meclizine PRN 5. Gastroesophageal reflux disease/Gastric Ulcer s/p episode of bleeding. On Protonix IV BID per Dr John 6. Hypertension: on Norvasc. 7. Oral mucosa irritation, cold sore and odynophagia: Continue Abreva and mouth wash, Nystatin. improving 8. Klebsiella Pneumoniae UTI. on Levaquin now based on sensitivities. Prophylaxis. Sequential compression devices to lower extremity for DVT prevention, PPI for GI ppx DISPOSITION: S/p induction chemo, following counts, Bone Marrow bx 09/19, with poor risk AML and still with residual disease. 2nd round of chemo today and Hematology following. Subjective 24 Hr Interval Summary Free Text/Dictation Patient feels better today and better po intake Patient too weak for re induction chemo but Hematology to try Vidaza starting today Afebrile and counts better post 1 unit platelet transfusion 09/29 Exam/Review of Systems Vital Signs Vitals Vital Signs Date Time Temp Pulse Resp B/P Pulse Ox O2 Delivery O2 Flow Rate FiO2 10/01/16 08:00 98.6 80 20 133/67 98 09/28/16 20:19 Room Air Intake and Output 09/30/16 09/30/16 10/01/16 15:00 23:00 07:00 Intake Total 1500 ml 950 ml Output Total 1800 ml 900 ml Balance -300 ml 50 ml Exam Constitutional: alert, oriented, other (generalized weakness ) Respiratory: clear to auscultation, normal air movement Cardiovascular: nl pulses, regular rate and rhythm Gastrointestinal: non-tender, soft Musculoskeletal: nl extremities to inspection Extremities: normal pulses, other (no edema, clubbing or cyanosis ) Neurological: EXECUTIVE 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 ASST II-XII intact, nl mental status, nl speech, other ( generalised weakness ) Results Result Diagram: 10/01/165 10/01/165 Results 24 hrs Laboratory Tests Test 09/30/16 11:55 09/30/16 17:07 09/30/16 21:48 10/01/16 04:45 Bedside Glucose 243 H 177 144 Alanine Aminotransferase (ALT/SGPT) 17 Albumin 3.0 L Albumin/Globulin Ratio 0.73 Alkaline Phosphatase 90 Anion Gap 15 Aspartate Amino Transf (AST/SGOT) 14 L Basophils # Basophils % Blast Cells % 1.0 H Blastocytes # 0.1 Blood Morphology Comment Blood Urea Nitrogen 4 L Calcium Level 8.4 Carbon Dioxide Level 26 Chloride Level 101 Creatinine 0.58 L Direct Bilirubin 0.00 Eosinophils # 0.1 Eosinophils % 1.0 Globulin 4.10 H Glucose Level 166 Hematocrit 25.7 L Hemoglobin 8.9 L Indirect Bilirubin 0.2 Lymphocytes # 1.7 Lymphocytes % 33.0 Mean Corpuscular Hemoglobin 29.4 Mean Corpuscular Hemoglobin Concent 34.7 Mean Corpuscular Volume 84.7 Mean Platelet Volume 7.5 Metamyelocytes # 0.1 Metamyelocytes % 2.0 H Monocytes # 2.7 H Monocytes % 50.0 H Myelocytes # 0.1 Myelocytes % 2.0 H Neutrophils # 0.6 L Neutrophils % 11.0 L Nucleated Red Blood Cells # Nucleated Red Blood Cells % Platelet Count 37 #L Potassium Level 3.8 Red Blood Count 3.04 L Red Cell Distribution Width 16.0 H Sodium Level 138 Total Bilirubin 0.2 Total Protein 7.1 White Blood Count 5.3 Test 10/01/16 08:05 Bedside Glucose 139 Medications Medications Current Medications Miscellaneous Information 1 ea NOTE XX ; Start 08/31/16 at 02:00 Glucose (Glutose) 15 gm Q15M PRN PO DECREASED GLUCOSE; Start 08/31/16 at 02:00 Glucose (Glutose) 22.5 gm Q15M PRN PO DECREASED GLUCOSE; Start 08/31/16 at 02:00 Dextrose (D50w Syringe) 25 ml Q15M PRN IV DECREASED GLUCOSE Last administered on 09/25/16 12:29; Admin Dose 25 ML; Start 08/31/16 at 02:00 Dextrose (D50w Syringe) 50 ml Q15M PRN IV DECREASED GLUCOSE; Start 08/31/16 at 02:00 Glucagon (Glucagen) 1 mg Q15M PRN IM DECREASED GLUCOSE; Start 08/31/16 at 02:00 Glucose (Glutose) 15 gm Q15M PRN BUCCAL DECREASED GLUCOSE; Start 08/31/16 at 02: 00 Fluticasone Propionate (Flonase 0.05% Nasal) 2 spray DAILY NASAL Last administered on 10/01/16 09:48; Admin Dose 2 SPRAY; Start 08/31/16 at 09:00 Ondansetron HCl (Zofran Inj) 4 mg Q6H PRN IV NAUSEA AND/OR VOMITING Last administered on 09/24/16 19:05; Admin Dose 4 MG; Start 09/01/16 at 11:30 Diphenhydramine HCl (Benadryl) 25 mg Q6H PRN PO ITCHING Last administered on 22:00; Admin Dose 25 MG; Start 09/01/16 at 11:30 Guaifenesin/ Dextromethorphan (Robitussin Dm Liquid Cup) 10 ml Q4H PRN PO COUGH Last administered on 09/30/16 22:09; Admin Dose 10 ML; Start 09/02/16 at 14:00 Allopurinol (Zyloprim) 300 mg DAILY PO Last administered on 10/01/16 09:47; Admin Dose 300 MG; Start 09/04/16 at 16:30 IV Flush (NS 10 ml) 10 ml PRN PRN IV IV PROTOCOL; Start 09/05/16 at 12:30 Bisacodyl (Dulcolax Supp) 10 mg DAILY PRN [place] CONSTIPATION; Start 09/08/16 at 12 :00 Magnesium Hydroxide (Milk Of Mag) 30 ml DAILY PRN PO CONSTIPATION Last administered on 09/09/16 06:25; Admin Dose 30 ML; Start 09/08/16 at 12:00 Polyethylene Glycol (Miralax) 17 gm DAILY PO Last administered on 09/28/16 08: 22; Admin Dose 17 GM; Start 09/08/16 at 12:00 Docusate Sodium (Colace) 100 mg BID PO Last administered on 10/01/16 09:47; Admin Dose 100 MG; Start 09/08/16 at 21:00 Phenol (Cepastat Lozenge) 1 lozenge Q1H PRN [place] SORE THROAT Last administered on 09/17/16 20:16; Admin Dose 1 LOZENGE; Start 09/08/16 at 12:00 Amlodipine Besylate (Norvasc) 5 mg QHS PO Last administered on 09/30/16 22:00; Admin Dose 5 MG; Start 09/11/16 at 21:00 Miscellaneous Medication (Bax Susp) 30 ml QID PO Last administered on 09/30/16 21:59; Admin Dose 30 ML; Start 09/13/16 at 13:00 Nystatin (Nystatin Susp) 5 ml QID PO Last administered on 10/01/16 09:47; Admin Dose 5 ML; Start 09/14/16 at 17:00 Insulin Glargine (Lantus) 7.5 unit QHS SC Last administered on 09/29/16 20:26; Admin Dose 7.5 UNIT; Start 09/18/16 at 21:00 Diagnostic Test (Pha) (Accucheck) 1 ea 02 XX Last administered on 09/25/16 01: 44; Admin Dose 1 EA; Start 09/23/16 at 02:00 Acetaminophen 650 mg 650 mg Q6H PRN [place] PAIN OR TEMP ABOVE 38C Last administered on 09/23/16 18:24; Admin Dose 650 MG; Start 09/23/16 at 18:00 Dextrose/Sodium Chloride (D5-NS) 1,000 ml @ 50 mls/hr Q20H IV Last administered on 10/01/16 09:55; Admin Dose 50 MLS/HR; Start 09/25/16 at 13:00 Al Hydrox/Mg Hydrox/Simethicone (Mag-Al Plus) 30 ml Q4 PO Last administered on 10/01/16 09:47; Admin Dose 30 ML; Start 09/25/16 at 15:00 Pantoprazole (Protonix Iv) 40 mg BID@06,18 IV Last administered on 10/01/16 04: 57; Admin Dose 40 MG; Start 09/26/16 at 18:00 Levofloxacin (Levaquin) 750 mg DAILY@09 PO Last administered on 09/30/16 09:37 ; Admin Dose 750 MG; Start 09/28/16 at 09:00 TAM ROSE Oct 01, 2016 10:33
[2016-10-01] MEDS: LEVOFLOXACIN 750 MG TABLET PO SCH (11:25)
--- NOTE | 2016-10-01 14:53 | CONS ---
Date/Time of Note Date/Time of Note DATE: 10/01/16 TIME: 14:51 Assessment/Plan Assessment/Plan Chief Complaint/Hosp Course 71 yo with CMML who is currently off therapy admitted for symptomatic anemia and thrombocytopenia. 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 Pt has completed 7+3 and tolerated chemotherapy well thus far. Preliminary report of Day 14 bone marrow still shows residual disease. Given patient is too weak for re-induction chemotherapy will proceed with Vidaza, hypomethylating agent when patient counts recover. Problems: Additional Assessment/Plan -Given poor risk AML and day 14 bone marrow with residual disease, and patient too sick for re-induction, will plan for vidaza 75 mg/m2 IV D1-7. Will start Vidaza now that patient has transferred to the floor. Plan to start today. - Plt improved from 10 to 54 with platelet transfusion 09/29/16, now 37. I think his thrombocytopenia may be partly due to prior induction chemo and partly due to residual disease. Goal of Vidaza is palliative, patient would not be a good transplant or clinical trial candidate given his performance status and poor tolerance of induction chemotherapy requiring ICU admission. -Continue allopurinol -Patient underwent EGD on 09/23/16 that demonstrated gastric ulcer covered by clot s/p hemoclipping, now s/p mesenteric angiogram and embolization of the left gastric artery. Patient was in the ICU, now back on [facility] floor. Hematemesis resolved. -Patient will need to stay inpatient for 3-4 weeks to await count recovery and monitor for infection, transfusions, etc. Plt goal > 50K if bleeding, > 20K if febrile, otherwise >10K. -Discussed with patient's daughter Tawny ([phone]) who was updated on situation and plan Problems: Consultation Date/Type/Reason Admit Date/Time Aug 31, 2016 at 00:38 Initial Consult Date 09/02/16 Type of Consultation: Hematology/Oncology Referring Provider: TAM ROSE 24 HR Interval Summary Free Text/Dictation Patient feeling weak. No bleeding. Exam/Review of Systems Vital Signs Vitals Vital Signs Date Time Temp Pulse Resp B/P Pulse Ox O2 Delivery O2 Flow Rate FiO2 10/01/16 08:00 98.6 80 20 133/67 98 09/28/16 20:19 Room Air Intake and Output 09/30/16 09/30/16 10/01/16 15:00 23:00 07:00 Intake Total 1500 ml 950 ml Output Total 1800 ml 900 ml Balance -300 ml 50 ml Exam Constitutional: alert, frail, oriented Head: normocephalic Eyes: nl conjunctiva ENMT: nl external ears & nose Neck: non-tender, supple Respiratory: clear to auscultation Cardiovascular: regular rate and rhythm Gastrointestinal: soft Musculoskeletal: nl extremities to inspection, nl gait and stance Extremities: normal pulses Results Result Diagram: 10/01/165 10/01/165 Results 24 hrs Laboratory Tests Test 09/30/16 17:07 09/30/16 21:48 10/01/16 04:45 10/01/16 08:05 Bedside Glucose 177 144 139 Alanine Aminotransferase (ALT/SGPT) 17 Albumin 3.0 L Albumin/Globulin Ratio 0.73 Alkaline Phosphatase 90 Anion Gap 15 Aspartate Amino Transf (AST/SGOT) 14 L Basophils # Basophils % Blast Cells % 1.0 H Blastocytes # 0.1 Blood Morphology Comment Blood Urea Nitrogen 4 L Calcium Level 8.4 Carbon Dioxide Level 26 Chloride Level 101 Creatinine 0.58 L Direct Bilirubin 0.00 Eosinophils # 0.1 Eosinophils % 1.0 Globulin 4.10 H Glucose Level 166 Hematocrit 25.7 L Hemoglobin 8.9 L Indirect Bilirubin 0.2 Lymphocytes # 1.7 Lymphocytes % 33.0 Mean Corpuscular Hemoglobin 29.4 Mean Corpuscular Hemoglobin Concent 34.7 Mean Corpuscular Volume 84.7 Mean Platelet Volume 7.5 Metamyelocytes # 0.1 Metamyelocytes % 2.0 H Monocytes # 2.7 H Monocytes % 50.0 H Myelocytes # 0.1 Myelocytes % 2.0 H Neutrophils # 0.6 L Neutrophils % 11.0 L Nucleated Red Blood Cells # Nucleated Red Blood Cells % Platelet Count 37 #L Potassium Level 3.8 Red Blood Count 3.04 L Red Cell Distribution Width 16.0 H Sodium Level 138 Total Bilirubin 0.2 Total Protein 7.1 White Blood Count 5.3 Test 10/01/16 11:28 Bedside Glucose 193 Medications Medications Current Medications Miscellaneous Information 1 ea NOTE XX ; Start 08/31/16 at 02:00 Glucose (Glutose) 15 gm Q15M PRN PO DECREASED GLUCOSE; Start 08/31/16 at 02:00 Glucose (Glutose) 22.5 gm Q15M PRN PO DECREASED GLUCOSE; Start 08/31/16 at 02:00 Dextrose (D50w Syringe) 25 ml Q15M PRN IV DECREASED GLUCOSE Last administered on 09/25/16 12:29; Admin Dose 25 ML; Start 08/31/16 at 02:00 Dextrose (D50w Syringe) 50 ml Q15M PRN IV DECREASED GLUCOSE; Start 08/31/16 at 02:00 Glucagon (Glucagen) 1 mg Q15M PRN IM DECREASED GLUCOSE; Start 08/31/16 at 02:00 Glucose (Glutose) 15 gm Q15M PRN BUCCAL DECREASED GLUCOSE; Start 08/31/16 at 02: 00 Fluticasone Propionate (Flonase 0.05% Nasal) 2 spray DAILY NASAL Last administered on 10/01/16 09:48; Admin Dose 2 SPRAY; Start 08/31/16 at 09:00 Ondansetron HCl (Zofran Inj) 4 mg Q6H PRN IV NAUSEA AND/OR VOMITING Last administered on 09/24/16 19:05; Admin Dose 4 MG; Start 09/01/16 at 11:30 Diphenhydramine HCl (Benadryl) 25 mg Q6H PRN PO ITCHING Last administered on 22:00; Admin Dose 25 MG; Start 09/01/16 at 11:30 Guaifenesin/ Dextromethorphan (Robitussin Dm Liquid Cup) 10 ml Q4H PRN PO COUGH Last administered on 09/30/16 22:09; Admin Dose 10 ML; Start 09/02/16 at 14:00 Allopurinol (Zyloprim) 300 mg DAILY PO Last administered on 10/01/16 09:47; Admin Dose 300 MG; Start 09/04/16 at 16:30 IV Flush (NS 10 ml) 10 ml PRN PRN IV IV PROTOCOL; Start 09/05/16 at 12:30 Bisacodyl (Dulcolax Supp) 10 mg DAILY PRN [place] CONSTIPATION; Start 09/08/16 at 12 :00 Magnesium Hydroxide (Milk Of Mag) 30 ml DAILY PRN PO CONSTIPATION Last administered on 09/09/16 06:25; Admin Dose 30 ML; Start 09/08/16 at 12:00 Polyethylene Glycol (Miralax) 17 gm DAILY PO Last administered on 09/28/16 08: 22; Admin Dose 17 GM; Start 09/08/16 at 12:00 Docusate Sodium (Colace) 100 mg BID PO Last administered on 10/01/16 09:47; Admin Dose 100 MG; Start 09/08/16 at 21:00 Phenol (Cepastat Lozenge) 1 lozenge Q1H PRN MT SORE THROAT Last administered on 09/17/16 20:16; Admin Dose 1 LOZENGE; Start 09/08/16 at 12:00 Amlodipine Besylate (Norvasc) 5 mg QHS PO Last administered on 09/30/16 22:00; Admin Dose 5 MG; Start 09/11/16 at 21:00 Miscellaneous Medication (Bax Susp) 30 ml QID PO Last administered on 10/01/16 13:26; Admin Dose 30 ML; Start 09/13/16 at 13:00 Nystatin (Nystatin Susp) 5 ml QID PO Last administered on 10/01/16 13:27; Admin Dose 5 ML; Start 09/14/16 at 17:00 Insulin Glargine (Lantus) 7.5 unit QHS SC Last administered on 09/29/16 20:26; Admin Dose 7.5 UNIT; Start 09/18/16 at 21:00 Diagnostic Test (Pha) (Accucheck) 1 ea 02 XX Last administered on 09/25/16 01: 44; Admin Dose 1 EA; Start 09/23/16 at 02:00 Acetaminophen 650 mg 650 mg Q6H PRN [place] PAIN OR TEMP ABOVE 38C Last administered on 09/23/16 18:24; Admin Dose 650 MG; Start 09/23/16 at 18:00 Dextrose/Sodium Chloride (D5-NS) 1,000 ml @ 50 mls/hr Q20H IV Last administered on 10/01/16 09:55; Admin Dose 50 MLS/HR; Start 09/25/16 at 13:00 Al Hydrox/Mg Hydrox/Simethicone (Mag-Al Plus) 30 ml Q4 PO Last administered on 10/01/16 13:27; Admin Dose 30 ML; Start 09/25/16 at 15:00 Pantoprazole (Protonix Iv) 40 mg BID@06,18 IV Last administered on 10/01/16 04: 57; Admin Dose 40 MG; Start 09/26/16 at 18:00 Levofloxacin (Levaquin) 750 mg DAILY@09 PO Last administered on 10/01/16 11:25 ; Admin Dose 750 MG; Start 09/28/16 at 09:00 TOROMA MD Oct 01, 2016 14:53
[2016-10-01] MEDS: ONDANSETRON INJ 16 MG in SOD CHLORIDE 0.9% 50 ML IV SCH (17:59)
[2016-10-01] MEDS: SOD CHLORIDE 0.9% 1,000 ML IV SCH (18:06)
[2016-10-01] MEDS: SOD CHLORIDE 0.9% IVPB SCH (18:26)
[2016-10-01] MEDS: AZACITIDINE IVPB SCH (18:26)
[2016-10-01] MEDS: AMLODIPINE 5 MG TAB PO SCH (20:24)
[2016-10-01] MEDS: GUAIFENESIN/DM 5ML CUP PO PRN (20:24)
[2016-10-01] MEDS: INSULIN GLARGINE [LANtus] 3 ML PEN SC SCH (20:26)
[2016-10-02] VITALS (7 sets, daily range): BP systolic 105–133; BP diastolic 58–74; PULSE 82–91; RESP 18–20
[2016-10-02] MEDS: AL HYDROX/MG HYDROX/SIMETH 30 ML CUP PO SCH ×6 (01:00→20:37)
[2016-10-02] MEDS: ACCUCHECK XX SCH (02:00)
[2016-10-02] MEDS: PANTOPRAZOLE 40 MG INJ IV SCH ×2 (04:33→17:42)
[2016-10-02] MEDS: SUCRALFATE 1 GM TAB PO SCH ×4 (04:33→20:37)
[2016-10-02 05:23] LABS: HEMATOCRIT 24.2 % (42.0-52.0); HEMOGLOBIN 8.6 g/dl (14.0-18.0); MEAN CORPUSCULAR HEMOGLOBIN 30.3 pg (29.0-33.0); MEAN CORPUSCULAR HGB CONC 35.5 g/dl (32.0-37.0); MEAN CORPUSCULAR VOLUME 85.4 fl (82.0-101.0); MEAN PLATELET VOLUME 7.9 fl (7.4-10.4); RED BLOOD COUNT 2.84 10^6/ul (4.70-6.10); UNCORRECTED WBC 5.2 10^3/ul (4.8-10.8); WHITE BLOOD COUNT 5.2 10^3/ul (4.8-10.8)
[2016-10-02 05:43] LABS: ALBUMIN 2.9 g/dl (3.3-4.9)
[2016-10-02 05:44] LABS: POTASSIUM 4.1 mmol/L (3.5-5.1)
[2016-10-02 05:46] LABS: ALBUMIN/GLOBULIN RATIO 0.67; BILIRUBIN,INDIRECT 0.2 mg/dl (0-1.1); BILIRUBIN,TOTAL 0.2 mg/dl (0.2-1.3); CREATININE 0.68 mg/dl (0.61-1.24); TOTAL PROTEIN 7.2 g/dl (6.1-8.1)
[2016-10-02 05:47] LABS: CALCIUM 8.4 mg/dl (8.4-10.2)
[2016-10-02 05:55] LABS: CONDITION 1; LH ANALYZER COMMENTS 1; SUSPECT 1
[2016-10-02 05:57] LABS: PLATELET COUNT 22 10^3/UL (140-440)
[2016-10-02] MEDS: NYSTATIN SUSP 5 ML CUP PO SCH ×4 (09:19→20:37)
[2016-10-02] MEDS: DOCUSATE SODIUM 100 MG CAP PO SCH ×2 (09:20→20:37)
[2016-10-02] MEDS: POLYETHYLENE GLYCOL 17 GM PACKET PO SCH (09:20)
[2016-10-02] MEDS: ONDANSETRON 4 MG INJ IV PRN (09:20)
[2016-10-02] MEDS: ALLOPURINOL 300 MG TAB PO SCH (09:20)
[2016-10-02] MEDS: INSULIN ASPART [NOVOLOG] 3 ML PEN SC SCH ×4 (09:23→20:44)
[2016-10-02] MEDS: FLUTICASONE 0.05% 16 GM NAS SPRAY NASAL SCH (09:24)
[2016-10-02] MEDS: DIPHENHYD PO SCH ×4 (09:25→20:46)
[2016-10-02] MEDS: LIDO PO SCH ×4 (09:25→20:46)
[2016-10-02] MEDS: MYLANTA PO SCH ×4 (09:25→20:46)
[2016-10-02] MEDS: LEVOFLOXACIN 750 MG TABLET PO SCH (10:30)
[2016-10-02 10:37] LABS: EOSINOPHILS # 0.2 10^3/ul (0.0-0.5); LYMPHOCYTES # 1.1 10^3/ul (0.8-2.9); MYELOCYTES # 0.1; NEUTROPHIL # 0.6 10^3/ul (1.6-7.5); PLATELET ESTIMATE PLT APPEAR DECREASED
--- NOTE | 2016-10-02 11:28 | PN ---
Date/Time of Note Date/Time of Note DATE: 10/02/16 TIME: 11:23 Assessment/Plan VTE Prophylaxis VTE Prophylaxis Intervention: SCD's Lines/Catheters IV Catheter Type (from Nrs): PICC Line Central line still needed: Yes (for chemo ) Urinary Cath still in place: No Assessment/Plan Assessment/Plan 71 yo male with: 1. 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 Monitor thrombocytopenia closely as requiring transfusion, no further acute bleeding x1 week Per Hematology trial of Vidaza for 2nd chemo round started 10/01 x 7 days course, patient too weak for re-induction. 2. UGIB/Hematemesis: s/p EGD with hemoclipping followed by mesenteric angiogram yesterday with no source of acute bleeding found Hb has been stable since pRBC transfusion last week, platelets being kept >10K with transfusions Continue Protonix bid Tolerating mostly soft diet due to some odynophagia/sore throat. 3. Diabetes mellitus, with associated neuropathy manifest by numbness in both feet. BG better controlled. BG stable, once better po intake, increase dosing of Lantus back up to 15 units qhs if needed and continue SSI. Zofran as needed for Nausea 4. Chronic benign positional vertigo. Continue Meclizine PRN 5. Gastroesophageal reflux disease/Gastric Ulcer s/p episode of bleeding. On Protonix IV BID per Dr John 6. Hypertension: on Norvasc. 7. Oral mucosa irritation, cold sore and odynophagia: Continue Abreva and mouth wash, Nystatin. improving 8. Klebsiella Pneumoniae UTI. on Levaquin now based on sensitivities. Prophylaxis. Sequential compression devices to lower extremity for DVT prevention, PPI for GI ppx DISPOSITION: S/p induction chemo, following counts, Bone Marrow bx 09/19, with poor risk AML and still with residual disease. 2nd round of chemo started 10/01, and Hematology following. Subjective 24 Hr Interval Summary Free Text/Dictation Patient remains stable Platelets down to 22K No Bleeding, no fevers Exam/Review of Systems Vital Signs Vitals Vital Signs Date Time Temp Pulse Resp B/P Pulse Ox O2 Delivery O2 Flow Rate FiO2 10/02/16 07:43 98.0 79 19 133/72 98 10/02/16 05:37 Room Air Intake and Output 10/01/16 10/01/16 10/02/16 15:00 23:00 07:00 Intake Total 700 ml Output Total 1000 ml Balance -300 ml Exam Constitutional: alert, frail, oriented Respiratory: clear to auscultation, normal air movement Cardiovascular: nl pulses, regular rate and rhythm Gastrointestinal: non-tender, soft Musculoskeletal: nl extremities to inspection, nl gait and stance Extremities: normal pulses Neurological: 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 POSTING SPECIALIST II-XII intact, lethargic, nl mental status, other ( generalised weakness ) Results Result Diagram: 10/02/169 10/02/169 Results 24 hrs Laboratory Tests Test 10/01/16 11:28 10/01/16 17:12 10/01/16 20:22 10/02/16 01:34 Bedside Glucose 193 179 133 164 Test 10/02/16 04:39 10/02/16 08:04 Alanine Aminotransferase (ALT/SGPT) 18 Albumin 2.9 L Albumin/Globulin Ratio 0.67 Alkaline Phosphatase 86 Anion Gap 14 Aspartate Amino Transf (AST/SGOT) 13 L Band Neutrophils % 1.0 Basophils # Basophils % Blast Cells % 3.0 H Blastocytes # 0.2 Blood Morphology Comment Blood Urea Nitrogen 7 Calcium Level 8.4 Carbon Dioxide Level 27 Chloride Level 100 Creatinine 0.68 Direct Bilirubin 0.00 Eosinophils # 0.2 Eosinophils % 3.0 Globulin 4.30 H Glucose Level 160 Hematocrit 24.2 L Hemoglobin 8.6 L Indirect Bilirubin 0.2 Lymphocytes # 1.1 Lymphocytes % 21.0 Mean Corpuscular Hemoglobin 30.3 Mean Corpuscular Hemoglobin Concent 35.5 Mean Corpuscular Volume 85.4 Mean Platelet Volume 7.9 Metamyelocytes # 0.1 Metamyelocytes % 1.0 H Monocytes # 3.0 H Monocytes % 58.0 H Myelocytes # 0.1 Myelocytes % 2.0 H Neutrophils # 0.6 L Neutrophils % 11.0 L Nucleated Red Blood Cells # Nucleated Red Blood Cells % 2.0 H Platelet Count 22 #*L Platelet Estimate PLT APPEAR DECREASED Potassium Level 4.1 Red Blood Count 2.84 L Red Cell Distribution Width 16.0 H Sodium Level 137 Total Bilirubin 0.2 Total Protein 7.2 White Blood Count 5.2 Bedside Glucose 143 Medications Medications Current Medications Miscellaneous Information 1 ea NOTE XX ; Start 08/31/16 at 02:00 Glucose (Glutose) 15 gm Q15M PRN PO DECREASED GLUCOSE; Start 08/31/16 at 02:00 Glucose (Glutose) 22.5 gm Q15M PRN PO DECREASED GLUCOSE; Start 08/31/16 at 02:00 Dextrose (D50w Syringe) 25 ml Q15M PRN IV DECREASED GLUCOSE Last administered on 09/25/16 12:29; Admin Dose 25 ML; Start 08/31/16 at 02:00 Dextrose (D50w Syringe) 50 ml Q15M PRN IV DECREASED GLUCOSE; Start 08/31/16 at 02:00 Glucagon (Glucagen) 1 mg Q15M PRN IM DECREASED GLUCOSE; Start 08/31/16 at 02:00 Glucose (Glutose) 15 gm Q15M PRN BUCCAL DECREASED GLUCOSE; Start 08/31/16 at 02: 00 Fluticasone Propionate (Flonase 0.05% Nasal) 2 spray DAILY NASAL Last administered on 10/02/16 09:24; Admin Dose 2 SPRAY; Start 08/31/16 at 09:00 Ondansetron HCl (Zofran Inj) 4 mg Q6H PRN IV NAUSEA AND/OR VOMITING Last administered on 10/02/16 09:20; Admin Dose 4 MG; Start 09/01/16 at 11:30 Diphenhydramine HCl (Benadryl) 25 mg Q6H PRN PO ITCHING Last administered on 22:00; Admin Dose 25 MG; Start 09/01/16 at 11:30 Guaifenesin/ Dextromethorphan (Robitussin Dm Liquid Cup) 10 ml Q4H PRN PO COUGH Last administered on 10/01/16 20:24; Admin Dose 10 ML; Start 09/02/16 at 14:00 Allopurinol (Zyloprim) 300 mg DAILY PO Last administered on 10/02/16 09:20; Admin Dose 300 MG; Start 09/04/16 at 16:30 IV Flush (NS 10 ml) 10 ml PRN PRN IV IV PROTOCOL; Start 09/05/16 at 12:30 Bisacodyl (Dulcolax Supp) 10 mg DAILY PRN [place] CONSTIPATION; Start 09/08/16 at 12 :00 Magnesium Hydroxide (Milk Of Mag) 30 ml DAILY PRN PO CONSTIPATION Last administered on 09/09/16 06:25; Admin Dose 30 ML; Start 09/08/16 at 12:00 Polyethylene Glycol (Miralax) 17 gm DAILY PO Last administered on 10/02/16 09: 20; Admin Dose 17 GM; Start 09/08/16 at 12:00 Docusate Sodium (Colace) 100 mg BID PO Last administered on 10/02/16 09:20; Admin Dose 100 MG; Start 09/08/16 at 21:00 Phenol (Cepastat Lozenge) 1 lozenge Q1H PRN [place] SORE THROAT Last administered on 09/17/16 20:16; Admin Dose 1 LOZENGE; Start 09/08/16 at 12:00 Amlodipine Besylate (Norvasc) 5 mg QHS PO Last administered on 10/01/16 20:24; Admin Dose 5 MG; Start 09/11/16 at 21:00 Miscellaneous Medication (Bax Susp) 30 ml QID PO Last administered on 10/02/16 09:25; Admin Dose 30 ML; Start 09/13/16 at 13:00 Nystatin (Nystatin Susp) 5 ml QID PO Last administered on 10/02/16 09:19; Admin Dose 5 ML; Start 09/14/16 at 17:00 Insulin Glargine (Lantus) 7.5 unit QHS SC Last administered on 10/01/16 20:26; Admin Dose 7.5 UNIT; Start 09/18/16 at 21:00 Diagnostic Test (Pha) (Accucheck) 1 ea 02 XX Last administered on 09/25/16 01: 44; Admin Dose 1 EA; Start 09/23/16 at 02:00 Acetaminophen 650 mg 650 mg Q6H PRN [place] PAIN OR TEMP ABOVE 38C Last administered on 09/23/16 18:24; Admin Dose 650 MG; Start 09/23/16 at 18:00 Dextrose/Sodium Chloride (D5-NS) 1,000 ml @ 50 mls/hr Q20H IV Last administered on 10/01/16 09:55; Admin Dose 50 MLS/HR; Start 09/25/16 at 13:00 Al Hydrox/Mg Hydrox/Simethicone (Mag-Al Plus) 30 ml Q4 PO Last administered on 10/02/16 09:20; Admin Dose 30 ML; Start 09/25/16 at 15:00 Pantoprazole (Protonix Iv) 40 mg BID@06,18 IV Last administered on 10/02/16 04: 33; Admin Dose 40 MG; Start 09/26/16 at 18:00 Levofloxacin 750 mg 750 mg DAILY@09 PO Last administered on 10/02/16 10:30; Admin Dose 750 MG; Start 09/28/16 at 09:00 Azacitidine 120 mg/Sodium Chloride 100 ml @ 400 mls/hr DAILY@18 IVPB Last administered on 10/01/16 18:26; Admin Dose 400 MLS/HR; Start 10/01/16 at 18:00; Stop 10/07/16 at 18:14 Ondansetron HCl 16 mg/Sodium Chloride 58 ml @ 252 mls/hr DAILY@18 IV Last administered on 10/01/16 17:59; Admin Dose 252 MLS/HR; Start 10/01/16 at 18:00; Stop 10/07/16 at 18:14 Sodium Chloride (NS) 1,000 ml @ 50 mls/hr Q20H IV Last administered on 18:06; Admin Dose 50 MLS/HR; Start 10/01/16 at 17:30 TAM ROSE Oct 02, 2016 11:28
[2016-10-02] MEDS: SOD CHLORIDE 0.9% 1,000 ML IV SCH (12:45)
--- NOTE | 2016-10-02 13:19 | CONS ---
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 Pt has completed 7+3 and tolerated chemotherapy well thus far. Preliminary report of Day 14 bone marrow still shows residual disease. Given patient is too weak for re-induction chemotherapy will proceed with Vidaza, hypomethylating agent when patient counts recover. Problems: Additional Assessment/Plan -Given poor risk AML and day 14 bone marrow with residual disease, and patient too sick for re-induction, will plan for vidaza 75 mg/m2 IV D1-7. Patient started on Vidaza 10/01/16. - Plt improved from 10 to 54 with platelet transfusion 09/29/16, now 22. I think his thrombocytopenia may be partly due to prior induction chemo and partly due to residual disease. Goal of Vidaza is palliative, patient would not be a good transplant or clinical trial candidate given his performance status and poor tolerance of induction chemotherapy requiring ICU admission. -Continue allopurinol -Patient underwent EGD on 09/23/16 that demonstrated gastric ulcer covered by clot s/p hemoclipping, now s/p mesenteric angiogram and embolization of the left gastric artery. Patient was in the ICU, now back on med surg floor. Hematemesis resolved. -Patient will need to stay inpatient for 3-4 weeks to await count recovery and monitor for infection, transfusions, etc. Plt goal > 50K if bleeding, > 20K if febrile, otherwise >10K. -Discussed with patient's daughter Tawny ([phone]) who was updated on situation and plan Problems: Consultation Date/Type/Reason Admit Date/Time Aug 31, 2016 at 00:38 Initial Consult Date 09/02/16 Type of Consultation: Hematology/Oncology Referring Provider: TAM ROSE 24 HR Interval Summary Free Text/Dictation Patient continues to have weakness but no new complaints, no overnight events. He was able to ambulate briefly with PT. Exam/Review of Systems Vital Signs Vitals Vital Signs Date Time Temp Pulse Resp B/P Pulse Ox O2 Delivery O2 Flow Rate FiO2 10/02/16 07:43 98.0 79 19 133/72 98 10/02/16 05:37 Room Air Intake and Output 10/01/16 10/01/16 10/02/16 15:00 23:00 07:00 Intake Total 1350 ml Output Total 1000 ml Balance 350 ml Exam Constitutional: alert, frail, oriented Head: normocephalic Eyes: nl conjunctiva ENMT: nl external ears & nose Neck: non-tender, supple Respiratory: clear to auscultation Cardiovascular: regular rate and rhythm Gastrointestinal: soft Musculoskeletal: nl extremities to inspection, nl gait and stance Extremities: normal pulses Results Result Diagram: 10/02/16 04310/02/16 043 Results 24 hrs Laboratory Tests Test 10/01/16 17:12 10/01/16 20:22 10/02/16 01:34 10/02/16 04:39 Bedside Glucose 179 133 164 Alanine Aminotransferase (ALT/SGPT) 18 Albumin 2.9 L Albumin/Globulin Ratio 0.67 Alkaline Phosphatase 86 Anion Gap 14 Aspartate Amino Transf (AST/SGOT) 13 L Band Neutrophils % 1.0 Basophils # Basophils % Blast Cells % 3.0 H Blastocytes # 0.2 Blood Morphology Comment Blood Urea Nitrogen 7 Calcium Level 8.4 Carbon Dioxide Level 27 Chloride Level 100 Creatinine 0.68 Direct Bilirubin 0.00 Eosinophils # 0.2 Eosinophils % 3.0 Globulin 4.30 H Glucose Level 160 Hematocrit 24.2 L Hemoglobin 8.6 L Indirect Bilirubin 0.2 Lymphocytes # 1.1 Lymphocytes % 21.0 Mean Corpuscular Hemoglobin 30.3 Mean Corpuscular Hemoglobin Concent 35.5 Mean Corpuscular Volume 85.4 Mean Platelet Volume 7.9 Metamyelocytes # 0.1 Metamyelocytes % 1.0 H Monocytes # 3.0 H Monocytes % 58.0 H Myelocytes # 0.1 Myelocytes % 2.0 H Neutrophils # 0.6 L Neutrophils % 11.0 L Nucleated Red Blood Cells # Nucleated Red Blood Cells % 2.0 H Platelet Count 22 #*L Platelet Estimate PLT APPEAR DECREASED Potassium Level 4.1 Red Blood Count 2.84 L Red Cell Distribution Width 16.0 H Sodium Level 137 Total Bilirubin 0.2 Total Protein 7.2 White Blood Count 5.2 Test 10/02/16 08:04 10/02/16 11:44 Bedside Glucose 143 201 Medications Medications Current Medications Miscellaneous Information 1 ea NOTE XX ; Start 08/31/16 at 02:00 Glucose (Glutose) 15 gm Q15M PRN PO DECREASED GLUCOSE; Start 08/31/16 at 02:00 Glucose (Glutose) 22.5 gm Q15M PRN PO DECREASED GLUCOSE; Start 08/31/16 at 02:00 Dextrose (D50w Syringe) 25 ml Q15M PRN IV DECREASED GLUCOSE Last administered on 09/25/16 12:29; Admin Dose 25 ML; Start 08/31/16 at 02:00 Dextrose (D50w Syringe) 50 ml Q15M PRN IV DECREASED GLUCOSE; Start 08/31/16 at 02:00 Glucagon (Glucagen) 1 mg Q15M PRN IM DECREASED GLUCOSE; Start 08/31/16 at 02:00 Glucose (Glutose) 15 gm Q15M PRN BUCCAL DECREASED GLUCOSE; Start 08/31/16 at 02: 00 Fluticasone Propionate (Flonase 0.05% Nasal) 2 spray DAILY NASAL Last administered on 10/02/16 09:24; Admin Dose 2 SPRAY; Start 08/31/16 at 09:00 Ondansetron HCl (Zofran Inj) 4 mg Q6H PRN IV NAUSEA AND/OR VOMITING Last administered on 10/02/16 09:20; Admin Dose 4 MG; Start 09/01/16 at 11:30 Diphenhydramine HCl (Benadryl) 25 mg Q6H PRN PO ITCHING Last administered on 22:00; Admin Dose 25 MG; Start 09/01/16 at 11:30 Guaifenesin/ Dextromethorphan (Robitussin Dm Liquid Cup) 10 ml Q4H PRN PO COUGH Last administered on 10/01/16 20:24; Admin Dose 10 ML; Start 09/02/16 at 14:00 Allopurinol (Zyloprim) 300 mg DAILY PO Last administered on 10/02/16 09:20; Admin Dose 300 MG; Start 09/04/16 at 16:30 IV Flush (NS 10 ml) 10 ml PRN PRN IV IV PROTOCOL; Start 09/05/16 at 12:30 Bisacodyl (Dulcolax Supp) 10 mg DAILY PRN MS CONSTIPATION; Start 09/08/16 at 12 :00 Magnesium Hydroxide (Milk Of Mag) 30 ml DAILY PRN PO CONSTIPATION Last administered on 09/09/16 06:25; Admin Dose 30 ML; Start 09/08/16 at 12:00 Polyethylene Glycol (Miralax) 17 gm DAILY PO Last administered on 10/02/16 09: 20; Admin Dose 17 GM; Start 09/08/16 at 12:00 Docusate Sodium (Colace) 100 mg BID PO Last administered on 10/02/16 09:20; Admin Dose 100 MG; Start 09/08/16 at 21:00 Phenol (Cepastat Lozenge) 1 lozenge Q1H PRN MT SORE THROAT Last administered on 09/17/16 20:16; Admin Dose 1 LOZENGE; Start 09/08/16 at 12:00 Amlodipine Besylate (Norvasc) 5 mg QHS PO Last administered on 10/01/16 20:24; Admin Dose 5 MG; Start 09/11/16 at 21:00 Miscellaneous Medication (Bax Susp) 30 ml QID PO Last administered on 10/02/16 09:25; Admin Dose 30 ML; Start 09/13/16 at 13:00 Nystatin (Nystatin Susp) 5 ml QID PO Last administered on 10/02/16 12:40; Admin Dose 5 ML; Start 09/14/16 at 17:00 Insulin Glargine (Lantus) 7.5 unit QHS SC Last administered on 10/01/16 20:26; Admin Dose 7.5 UNIT; Start 09/18/16 at 21:00 Diagnostic Test (Pha) (Accucheck) 1 ea 02 XX Last administered on 09/25/16 01: 44; Admin Dose 1 EA; Start 09/23/16 at 02:00 Acetaminophen 650 mg 650 mg Q6H PRN MS PAIN OR TEMP ABOVE 38C Last administered on 09/23/16 18:24; Admin Dose 650 MG; Start 09/23/16 at 18:00 Dextrose/Sodium Chloride (D5-NS) 1,000 ml @ 50 mls/hr Q20H IV Last administered on 10/01/16 09:55; Admin Dose 50 MLS/HR; Start 09/25/16 at 13:00 Al Hydrox/Mg Hydrox/Simethicone (Mag-Al Plus) 30 ml Q4 PO Last administered on 10/02/16 12:40; Admin Dose 30 ML; Start 09/25/16 at 15:00 Pantoprazole (Protonix Iv) 40 mg BID@06,18 IV Last administered on 10/02/16 04: 33; Admin Dose 40 MG; Start 09/26/16 at 18:00 Levofloxacin 750 mg 750 mg DAILY@09 PO Last administered on 10/02/16 10:30; Admin Dose 750 MG; Start 09/28/16 at 09:00 Azacitidine 120 mg/Sodium Chloride 100 ml @ 400 mls/hr DAILY@18 IVPB Last administered on 10/01/16 18:26; Admin Dose 400 MLS/HR; Start 10/01/16 at 18:00; Stop 10/07/16 at 18:14 Ondansetron HCl 16 mg/Sodium Chloride 58 ml @ 252 mls/hr DAILY@18 IV Last administered on 10/01/16 17:59; Admin Dose 252 MLS/HR; Start 10/01/16 at 18:00; Stop 10/07/16 at 18:14 Sodium Chloride (NS) 1,000 ml @ 50 mls/hr Q20H IV Last administered on 12:45; Admin Dose 50 MLS/HR; Start 10/01/16 at 17:30 TOROMA MD Oct 02, 2016 13:19
[2016-10-02] MEDS: ONDANSETRON INJ 16 MG in SOD CHLORIDE 0.9% 50 ML IV SCH (17:35)
[2016-10-02] MEDS: AZACITIDINE IVPB SCH (18:27)
[2016-10-02] MEDS: SOD CHLORIDE 0.9% IVPB SCH (18:27)
[2016-10-02] MEDS: AMLODIPINE 5 MG TAB PO SCH (20:38)
[2016-10-02] MEDS: INSULIN GLARGINE [LANtus] 3 ML PEN SC SCH (20:43)
[2016-10-02] MEDS: DEXTROSE 5%-0.9% NACL 1,000 ML IV SCH (20:46)
[2016-10-03] MEDS: AL HYDROX/MG HYDROX/SIMETH 30 ML CUP PO SCH ×6 (00:58→20:42)
[2016-10-03] MEDS: DIPHENHYDRAMINE 25 MG CAP PO PRN (01:00)
[2016-10-03] MEDS: ACCUCHECK XX SCH (01:03)
[2016-10-03 05:17] LABS: PHOSPHORUS 3.1 mg/dl (2.5-4.9)
[2016-10-03 05:18] LABS: MAGNESIUM 1.9 mg/dl (1.7-2.5)
[2016-10-03] MEDS: PANTOPRAZOLE 40 MG INJ IV SCH ×2 (05:34→17:39)
[2016-10-03 05:35] LABS: ALBUMIN 2.9 g/dl (3.3-4.9)
[2016-10-03 05:36] LABS: POTASSIUM 3.9 mmol/L (3.5-5.1)
[2016-10-03 05:38] LABS: ALBUMIN/GLOBULIN RATIO 0.72; BILIRUBIN,INDIRECT 0.2 mg/dl (0-1.1); BILIRUBIN,TOTAL 0.2 mg/dl (0.2-1.3); CREATININE 0.66 mg/dl (0.61-1.24); TOTAL PROTEIN 6.9 g/dl (6.1-8.1)
[2016-10-03 05:39] LABS: CALCIUM 8.5 mg/dl (8.4-10.2)
[2016-10-03 05:44] LABS: ABNORMAL IP MESSAGE 1; HEMATOCRIT 24.3 % (42.0-52.0); MEAN CORPUSCULAR HEMOGLOBIN 28.5 pg (29.0-33.0); MEAN CORPUSCULAR HGB CONC 32.9 g/dl (32.0-37.0); MEAN CORPUSCULAR VOLUME 86.5 fl (82.0-101.0); MEAN PLATELET VOLUME 10.8 fl (7.4-10.4); NEUTROPHIL # 0.5 10^3/ul (1.6-7.5); RED BLOOD COUNT 2.81 10^6/ul (4.70-6.10); RED CELL DISTRIBUTION WIDTH 14.6 % (11.5-14.5); WHITE BLOOD COUNT 4.8 10^3/ul (4.8-10.8)
[2016-10-03 06:58] LABS: ADD SCAN DIFF HOLD/SCAN; PLATELET COUNT 14 10^3/UL (140-415)
[2016-10-03 08:00] VITALS: BP 127/60; RESP 20
[2016-10-03] MEDS: SUCRALFATE 1 GM TAB PO SCH ×4 (08:11→20:45)
[2016-10-03] MEDS: INSULIN ASPART [NOVOLOG] 3 ML PEN SC SCH ×4 (08:13→21:00)
[2016-10-03] MEDS: DIPHENHYD PO SCH ×4 (08:58→21:00)
[2016-10-03] MEDS: LIDO PO SCH ×4 (08:58→21:00)
[2016-10-03] MEDS: NYSTATIN SUSP 5 ML CUP PO SCH ×4 (08:58→20:45)
[2016-10-03] MEDS: MYLANTA PO SCH ×4 (08:58→21:00)
[2016-10-03] MEDS: ALLOPURINOL 300 MG TAB PO SCH (08:58)
[2016-10-03] MEDS: POLYETHYLENE GLYCOL 17 GM PACKET PO SCH (09:00)
[2016-10-03] MEDS: DOCUSATE SODIUM 100 MG CAP PO SCH ×2 (09:00→20:45)
[2016-10-03] MEDS: LEVOFLOXACIN 750 MG TABLET PO SCH (09:01)
[2016-10-03] MEDS: FLUTICASONE 0.05% 16 GM NAS SPRAY NASAL SCH (10:10)
[2016-10-03] MEDS: SOD CHLORIDE 0.9% 1,000 ML IV SCH (10:11)
--- NOTE | 2016-10-03 10:22 | PN ---
Date/Time of Note Date/Time of Note DATE: 10/03/16 TIME: 10:14 Assessment/Plan VTE Prophylaxis VTE Prophylaxis Intervention: SCD's Lines/Catheters IV Catheter Type (from Nrs): PICC Line Central line still needed: Yes (for chemo and IV access ) Urinary Cath still in place: No Assessment/Plan Assessment/Plan 71 yo male with: 1. 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 Monitor thrombocytopenia closely as requiring transfusion, no further acute bleeding x1 week Per Hematology trial of Vidaza for 2nd chemo round started 10/01 x 7 days course, patient too weak for re-induction. 2. UGIB/Hematemesis: s/p EGD with hemoclipping followed by mesenteric angiogram yesterday with no source of acute bleeding found Hb has been stable since pRBC transfusion last week, platelets being kept >10K with transfusions Continue Protonix IV bid for now Tolerating mostly soft diet due to some odynophagia/sore throat. 3. Diabetes mellitus, with associated neuropathy manifest by numbness in both feet. BG better controlled. BG stable, once better po intake, increase dosing of Lantus back up to 15 units qhs if needed and continue SSI. Zofran as needed for Nausea 4. Chronic benign positional vertigo. Continue Meclizine PRN 5. Gastroesophageal reflux disease/Gastric Ulcer s/p episode of bleeding. On Protonix IV BID per Dr John 6. Hypertension: on Norvasc. 7. Oral mucosa irritation, cold sore and odynophagia: Continue Abreva and mouth wash, Nystatin. improving 8. Klebsiella Pneumoniae UTI: on Levaquin now based on sensitivities, d/c on Prophylaxis. Sequential compression devices to lower extremity for DVT prevention, PPI for GI ppx DISPOSITION: S/p induction chemo, following counts, Bone Marrow bx 09/19, with poor risk AML and still with residual disease. 2nd round of chemo started 10/01, and Hematology following. Subjective 24 Hr Interval Summary Free Text/Dictation Patient remains stable and on Chemo 3/7 days today No further complaints, still encouraging po intake Afebrile and plts trending down and will likely need transfusion by tomorrow Exam/Review of Systems Vital Signs Vitals Vital Signs Date Time Temp Pulse Resp B/P Pulse Ox O2 Delivery O2 Flow Rate FiO2 10/03/16 08:00 98.2 78 20 127/60 98 10/02/16 19:00 Room Air Intake and Output 10/02/16 10/02/16 10/03/16 15:00 23:00 07:00 Intake Total 1350 ml 1550 ml Output Total 1150 ml Balance 1350 ml 400 ml Exam Constitutional: alert, frail, oriented Respiratory: clear to auscultation, normal air movement Cardiovascular: nl pulses, regular rate and rhythm Gastrointestinal: non-tender, soft Musculoskeletal: nl extremities to inspection Extremities: normal pulses, other (no edema, clubbign or cyanossi ) Neurological: CATALOGUE COMPILER II-XII intact, nl mental status, nl speech, other ( generalised weakness ) Results Result Diagram: 10/03/16 04310/03/16 0430 Results 24 hrs Laboratory Tests Test 10/02/16 11:44 10/02/16 17:27 10/02/16 20:10 10/03/16 00:58 Bedside Glucose 201 185 207 150 Test 10/03/16 04:30 10/03/16 08:03 Alanine Aminotransferase (ALT/SGPT) 20 Albumin 2.9 L Albumin/Globulin Ratio 0.72 Alkaline Phosphatase 89 Anion Gap 15 Aspartate Amino Transf (AST/SGOT) 14 L Basophils # 0.0 Basophils % 0.0 Blood Urea Nitrogen 8 Calcium Level 8.5 Carbon Dioxide Level 27 Chloride Level 102 Creatinine 0.66 Direct Bilirubin 0.00 Eosinophils # 0.1 Eosinophils % 1.9 Globulin 4.00 H Glucose Level 130 Hematocrit 24.3 L Hemoglobin 8.0 L Indirect Bilirubin 0.2 Lymphocytes # 0.9 Lymphocytes % 19.7 Magnesium Level 1.9 Mean Corpuscular Hemoglobin 28.5 L Mean Corpuscular Hemoglobin Concent 32.9 Mean Corpuscular Volume 86.5 Mean Platelet Volume 10.8 #H Monocytes # 3.1 H Monocytes % 64.9 H Neutrophils # 0.5 L Neutrophils % 10.1 L Nucleated Red Blood Cells # 0.0 Nucleated Red Blood Cells % 0.0 Phosphorus Level 3.1 Platelet Count 14 *L Potassium Level 3.9 Red Blood Count 2.81 L Red Cell Distribution Width 14.6 H Sodium Level 140 Total Bilirubin 0.2 Total Protein 6.9 White Blood Count 4.8 Bedside Glucose 164 Medications Medications Current Medications Miscellaneous Information 1 ea NOTE XX ; Start 08/31/16 at 02:00 Glucose (Glutose) 15 gm Q15M PRN PO DECREASED GLUCOSE; Start 08/31/16 at 02:00 Glucose (Glutose) 22.5 gm Q15M PRN PO DECREASED GLUCOSE; Start 08/31/16 at 02:00 Dextrose (D50w Syringe) 25 ml Q15M PRN IV DECREASED GLUCOSE Last administered on 09/25/16 12:29; Admin Dose 25 ML; Start 08/31/16 at 02:00 Dextrose (D50w Syringe) 50 ml Q15M PRN IV DECREASED GLUCOSE; Start 08/31/16 at 02:00 Glucagon (Glucagen) 1 mg Q15M PRN IM DECREASED GLUCOSE; Start 08/31/16 at 02:00 Glucose (Glutose) 15 gm Q15M PRN BUCCAL DECREASED GLUCOSE; Start 08/31/16 at 02: 00 Fluticasone Propionate (Flonase 0.05% Nasal) 2 spray DAILY NASAL Last administered on 10/03/16 10:10; Admin Dose 2 SPRAY; Start 08/31/16 at 09:00 Ondansetron HCl (Zofran Inj) 4 mg Q6H PRN IV NAUSEA AND/OR VOMITING Last administered on 10/02/16 09:20; Admin Dose 4 MG; Start 09/01/16 at 11:30 Diphenhydramine HCl (Benadryl) 25 mg Q6H PRN PO ITCHING Last administered on 01:00; Admin Dose 25 MG; Start 09/01/16 at 11:30 Guaifenesin/ Dextromethorphan (Robitussin Dm Liquid Cup) 10 ml Q4H PRN PO COUGH Last administered on 10/01/16 20:24; Admin Dose 10 ML; Start 09/02/16 at 14:00 Allopurinol (Zyloprim) 300 mg DAILY PO Last administered on 10/03/16 08:58; Admin Dose 300 MG; Start 09/04/16 at 16:30 IV Flush (NS 10 ml) 10 ml PRN PRN IV IV PROTOCOL; Start 09/05/16 at 12:30 Bisacodyl (Dulcolax Supp) [address] CONSTIPATION; Start 09/08/16 at 12 :00 Magnesium Hydroxide (Milk Of Mag) 30 ml DAILY PRN PO CONSTIPATION Last administered on 09/09/16 06:25; Admin Dose 30 ML; Start 09/08/16 at 12:00 Polyethylene Glycol (Miralax) 17 gm DAILY PO Last administered on 10/02/16 09: 20; Admin Dose 17 GM; Start 09/08/16 at 12:00 Docusate Sodium (Colace) 100 mg BID PO Last administered on 10/02/16 20:37; Admin Dose 100 MG; Start 09/08/16 at 21:00 Phenol (Cepastat Lozenge) 1 lozenge Q1H PRN MT SORE THROAT Last administered on 09/17/16 20:16; Admin Dose 1 LOZENGE; Start 09/08/16 at 12:00 Amlodipine Besylate (Norvasc) 5 mg QHS PO Last administered on 10/02/16 20:38; Admin Dose 5 MG; Start 09/11/16 at 21:00 Miscellaneous Medication (Bax Susp) 30 ml QID PO Last administered on 08:58; Admin Dose 30 ML; Start 09/13/16 at 13:00 Nystatin (Nystatin Susp) 5 ml QID PO Last administered on 10/03/16 08:58; Admin Dose 5 ML; Start 09/14/16 at 17:00 Insulin Glargine (Lantus) 7.5 unit QHS SC Last administered on 10/02/16 20:43; Admin Dose 7.5 UNIT; Start 09/18/16 at 21:00 Diagnostic Test (Pha) (Accucheck) 1 ea 02 XX Last administered on 09/25/16 01: 44; Admin Dose 1 EA; Start 09/23/16 at 02:00 Acetaminophen 650 mg [address] PAIN OR TEMP ABOVE 38C Last administered on 09/23/16 18:24; Admin Dose 650 MG; Start 09/23/16 at 18:00 Dextrose/Sodium Chloride (D5-NS) 1,000 ml @ 50 mls/hr Q20H IV Last administered on 10/01/16 09:55; Admin Dose 50 MLS/HR; Start 09/25/16 at 13:00 Al Hydrox/Mg Hydrox/Simethicone (Mag-Al Plus) 30 ml Q4 PO Last administered on 10/03/16 05:34; Admin Dose 30 ML; Start 09/25/16 at 15:00 Pantoprazole (Protonix Iv) 40 mg BID@06,18 IV Last administered on 10/03/16 05 :34; Admin Dose 40 MG; Start 09/26/16 at 18:00 Levofloxacin 750 mg 750 mg DAILY@09 PO Last administered on 10/03/16 09:01; Admin Dose 750 MG; Start 09/28/16 at 09:00 Azacitidine 120 mg/Sodium Chloride 100 ml @ 400 mls/hr DAILY@18 IVPB Last administered on 10/02/16 18:27; Admin Dose 400 MLS/HR; Start 10/01/16 at 18:00; Stop 10/07/16 at 18:14 Ondansetron HCl 16 mg/Sodium Chloride 58 ml @ 252 mls/hr DAILY@18 IV Last administered on 10/02/16 17:35; Admin Dose 252 MLS/HR; Start 10/01/16 at 18:00; Stop 10/07/16 at 18:14 Sodium Chloride (NS) 1,000 ml @ 50 mls/hr Q20H IV Last administered on 10:11; Admin Dose 50 MLS/HR; Start 10/01/16 at 17:30 TAM ROSE Oct 03, 2016 10:22
[2016-10-03 14:52] LABS: LYMPHOCYTES # 2.2 10^3/ul (0.8-2.9); MONOCYTE # 1.4 10^3/ul (0.3-0.9)
--- NOTE | 2016-10-03 15:12 | CONS ---
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 Pt has completed 7+3 and tolerated chemotherapy well thus far. Preliminary report of Day 14 bone marrow still shows residual disease. Given patient is too weak for re-induction chemotherapy will proceed with Vidaza, hypomethylating agent when patient counts recover. Problems: Additional Assessment/Plan -Given poor risk AML and day 14 bone marrow with residual disease, and patient too sick for re-induction, will plan for vidaza 75 mg/m2 IV D1-7. Patient started on Vidaza 10/01/16. - Plt improved from 10 to 54 with platelet transfusion 09/29/16. Plt now 14K, will give 1 unit platelets as he is at high risk for re-bleeding. I think his thrombocytopenia may be partly due to prior induction chemo and partly due to residual disease. Goal of Vidaza is palliative, patient would not be a good transplant or clinical trial candidate given his performance status and poor tolerance of induction chemotherapy requiring ICU admission. -Continue allopurinol -Patient underwent EGD on 09/23/16 that demonstrated gastric ulcer covered by clot s/p hemoclipping, now s/p mesenteric angiogram and embolization of the left gastric artery. Patient was in the ICU, now back on med surg floor. Hematemesis resolved. -Patient will need to stay inpatient for 3-4 weeks to await count recovery and monitor for infection, transfusions, etc. Plt goal > 50K if bleeding, > 20K if febrile, otherwise >10K. -Discussed with patient's daughter Tawny ([phone]) who was updated on situation and plan Problems: Consultation Date/Type/Reason Admit Date/Time Aug 31, 2016 at 00:38 Initial Consult Date 09/02/16 Type of Consultation: Hematology/Oncology Referring Provider: TAM ROSE 24 HR Interval Summary Free Text/Dictation No acute events. Patient has no complaints. No bleeding. Exam/Review of Systems Vital Signs Vitals Vital Signs Date Time Temp Pulse Resp B/P Pulse Ox O2 Delivery O2 Flow Rate FiO2 10/03/16 08:00 98.2 78 20 127/60 98 10/02/16 19:00 Room Air Intake and Output 10/02/16 10/02/16 10/03/16 15:00 23:00 07:00 Intake Total 1350 ml 1550 ml Output Total 1150 ml Balance 1350 ml 400 ml Exam Constitutional: alert, frail, oriented Head: normocephalic Eyes: nl conjunctiva ENMT: nl external ears & nose Neck: non-tender, supple Respiratory: clear to auscultation Cardiovascular: regular rate and rhythm Gastrointestinal: soft Musculoskeletal: nl extremities to inspection, nl gait and stance Extremities: normal pulses Results Result Diagram: 10/03/16 04310/03/16 0430 Results 24 hrs Laboratory Tests Test 10/02/16 17:27 10/02/16 20:10 10/03/16 00:58 10/03/16 04:30 Bedside Glucose 185 207 150 Alanine Aminotransferase (ALT/SGPT) 20 Albumin 2.9 L Albumin/Globulin Ratio 0.72 Alkaline Phosphatase 89 Anion Gap 15 Aspartate Amino Transf (AST/SGOT) 14 L Basophils # 0.0 Basophils % 0.0 Blood Urea Nitrogen 8 Calcium Level 8.5 Carbon Dioxide Level 27 Chloride Level 102 Creatinine 0.66 Differential Comment Direct Bilirubin 0.00 Eosinophils # 0.0 Eosinophils % 0.0 Globulin 4.00 H Glucose Level 130 Hematocrit 24.3 L Hemoglobin 8.0 L Indirect Bilirubin 0.2 Lymphocytes # 2.2 Lymphocytes % 46.0 Magnesium Level 1.9 Mean Corpuscular Hemoglobin 28.5 L Mean Corpuscular Hemoglobin Concent 32.9 Mean Corpuscular Volume 86.5 Mean Platelet Volume 10.8 #H Monocytes # 1.4 H Monocytes % 30.0 H Neutrophils # 0.5 L Neutrophils % 10.0 L Nucleated Red Blood Cells # 0.0 Nucleated Red Blood Cells % 0.0 Phosphorus Level 3.1 Platelet Count 14 *L Potassium Level 3.9 Red Blood Count 2.81 L Red Cell Distribution Width 14.6 H Sodium Level 140 Total Bilirubin 0.2 Total Protein 6.9 White Blood Count 4.8 Test 10/03/16 08:03 10/03/16 11:49 Bedside Glucose 164 236 H Medications Medications Current Medications Miscellaneous Information 1 ea NOTE XX ; Start 08/31/16 at 02:00 Glucose (Glutose) 15 gm Q15M PRN PO DECREASED GLUCOSE; Start 08/31/16 at 02:00 Glucose (Glutose) 22.5 gm Q15M PRN PO DECREASED GLUCOSE; Start 08/31/16 at 02:00 Dextrose (D50w Syringe) 25 ml Q15M PRN IV DECREASED GLUCOSE Last administered on 09/25/16 12:29; Admin Dose 25 ML; Start 08/31/16 at 02:00 Dextrose (D50w Syringe) 50 ml Q15M PRN IV DECREASED GLUCOSE; Start 08/31/16 at 02:00 Glucagon (Glucagen) 1 mg Q15M PRN IM DECREASED GLUCOSE; Start 08/31/16 at 02:00 Glucose (Glutose) 15 gm Q15M PRN BUCCAL DECREASED GLUCOSE; Start 08/31/16 at 02: 00 Fluticasone Propionate (Flonase 0.05% Nasal) 2 spray DAILY NASAL Last administered on 10/03/16 10:10; Admin Dose 2 SPRAY; Start 08/31/16 at 09:00 Ondansetron HCl (Zofran Inj) 4 mg Q6H PRN IV NAUSEA AND/OR VOMITING Last administered on 10/02/16 09:20; Admin Dose 4 MG; Start 09/01/16 at 11:30 Diphenhydramine HCl (Benadryl) 25 mg Q6H PRN PO ITCHING Last administered on 01:00; Admin Dose 25 MG; Start 09/01/16 at 11:30 Guaifenesin/ Dextromethorphan (Robitussin Dm Liquid Cup) 10 ml Q4H PRN PO COUGH Last administered on 10/01/16 20:24; Admin Dose 10 ML; Start 09/02/16 at 14:00 Allopurinol (Zyloprim) 300 mg DAILY PO Last administered on 10/03/16 08:58; Admin Dose 300 MG; Start 09/04/16 at 16:30 IV Flush (NS 10 ml) 10 ml PRN PRN IV IV PROTOCOL; Start 09/05/16 at 12:30 Bisacodyl (Dulcolax Supp) 10 mg DAILY PRN MT CONSTIPATION; Start 09/08/16 at 12 :00 Magnesium Hydroxide (Milk Of Mag) 30 ml DAILY PRN PO CONSTIPATION Last administered on 09/09/16 06:25; Admin Dose 30 ML; Start 09/08/16 at 12:00 Polyethylene Glycol (Miralax) 17 gm DAILY PO Last administered on 10/02/16 09: 20; Admin Dose 17 GM; Start 09/08/16 at 12:00 Docusate Sodium (Colace) 100 mg BID PO Last administered on 10/02/16 20:37; Admin Dose 100 MG; Start 09/08/16 at 21:00 Phenol (Cepastat Lozenge) 1 lozenge Q1H PRN MT SORE THROAT Last administered on 09/17/16 20:16; Admin Dose 1 LOZENGE; Start 09/08/16 at 12:00 Amlodipine Besylate (Norvasc) 5 mg QHS PO Last administered on 10/02/16 20:38; Admin Dose 5 MG; Start 09/11/16 at 21:00 Miscellaneous Medication (Bax Susp) 30 ml QID PO Last administered on 12:42; Admin Dose 30 ML; Start 09/13/16 at 13:00 Nystatin (Nystatin Susp) 5 ml QID PO Last administered on 10/03/16 12:42; Admin Dose 5 ML; Start 09/14/16 at 17:00 Insulin Glargine (Lantus) 7.5 unit QHS SC Last administered on 10/02/16 20:43; Admin Dose 7.5 UNIT; Start 09/18/16 at 21:00 Diagnostic Test (Pha) (Accucheck) 1 ea 02 XX Last administered on 09/25/16 01: 44; Admin Dose 1 EA; Start 09/23/16 at 02:00 Acetaminophen 650 mg 650 mg Q6H PRN MT PAIN OR TEMP ABOVE 38C Last administered on 09/23/16 18:24; Admin Dose 650 MG; Start 09/23/16 at 18:00 Dextrose/Sodium Chloride (D5-NS) 1,000 ml @ 50 mls/hr Q20H IV Last administered on 10/01/16 09:55; Admin Dose 50 MLS/HR; Start 09/25/16 at 13:00 Al Hydrox/Mg Hydrox/Simethicone (Mag-Al Plus) 30 ml Q4 PO Last administered on 10/03/16 05:34; Admin Dose 30 ML; Start 09/25/16 at 15:00 Pantoprazole (Protonix Iv) 40 mg BID@06,18 IV Last administered on 10/03/16 05 :34; Admin Dose 40 MG; Start 09/26/16 at 18:00 Levofloxacin 750 mg 750 mg DAILY@09 PO Last administered on 10/03/16 09:01; Admin Dose 750 MG; Start 09/28/16 at 09:00 Azacitidine 120 mg/Sodium Chloride 100 ml @ 400 mls/hr DAILY@18 IVPB Last administered on 10/02/16 18:27; Admin Dose 400 MLS/HR; Start 10/01/16 at 18:00; Stop 10/07/16 at 18:14 Ondansetron HCl 16 mg/Sodium Chloride 58 ml @ 252 mls/hr DAILY@18 IV Last administered on 10/02/16 17:35; Admin Dose 252 MLS/HR; Start 10/01/16 at 18:00; Stop 10/07/16 at 18:14 Sodium Chloride (NS) 1,000 ml @ 50 mls/hr Q20H IV Last administered on 10:11; Admin Dose 50 MLS/HR; Start 10/01/16 at 17:30 TOROMA MD Oct 03, 2016 15:12
[2016-10-03] MEDS: ONDANSETRON INJ 16 MG in SOD CHLORIDE 0.9% 50 ML IV SCH (18:39)
[2016-10-03] MEDS: AZACITIDINE IVPB SCH (19:06)
[2016-10-03] MEDS: SOD CHLORIDE 0.9% IVPB SCH (19:06)
[2016-10-03 19:10] VITALS: BP 121/64; PULSE 96; RESP 18
[2016-10-03 19:33] VITALS: BP 135/69; PULSE 95; RESP 17
[2016-10-03 20:03] VITALS: BP 142/71; RESP 19
[2016-10-03] MEDS: AMLODIPINE 5 MG TAB PO SCH (20:45)
[2016-10-03] MEDS: INSULIN GLARGINE [LANtus] 3 ML PEN SC SCH (20:47)
[2016-10-03] MEDS: DEXTROSE 5%-0.9% NACL 1,000 ML IV SCH (21:00)
[2016-10-04] MEDS: AL HYDROX/MG HYDROX/SIMETH 30 ML CUP PO SCH ×6 (01:00→21:00)
[2016-10-04] MEDS: ACCUCHECK XX SCH (02:00)
[2016-10-04 05:28] LABS: ABNORMAL IP MESSAGE 1; HEMATOCRIT 22.3 % (42.0-52.0); HEMOGLOBIN 7.2 g/dl (14.0-18.0); MEAN CORPUSCULAR HEMOGLOBIN 28.1 pg (29.0-33.0); MEAN CORPUSCULAR HGB CONC 32.3 g/dl (32.0-37.0); MEAN CORPUSCULAR VOLUME 87.1 fl (82.0-101.0); MEAN PLATELET VOLUME 9.4 fl (7.4-10.4); PLATELET COUNT 59 10^3/UL (140-415); RED BLOOD COUNT 2.56 10^6/ul (4.70-6.10); RED CELL DISTRIBUTION WIDTH 14.9 % (11.5-14.5); WHITE BLOOD COUNT 4.8 10^3/ul (4.8-10.8)
[2016-10-04] MEDS: SOD CHLORIDE 0.9% 1,000 ML IV SCH ×2 (05:30→17:47)
[2016-10-04 05:45] LABS: ADD SCAN DIFF YES
[2016-10-04] MEDS: PANTOPRAZOLE 40 MG INJ IV SCH ×2 (05:51→18:10)
[2016-10-04 05:54] LABS: ALBUMIN 3.1 g/dl (3.3-4.9); POTASSIUM 4.3 mmol/L (3.5-5.1)
[2016-10-04 05:56] LABS: BILIRUBIN,INDIRECT 0.2 mg/dl (0-1.1); BILIRUBIN,TOTAL 0.2 mg/dl (0.2-1.3); CREATININE 0.76 mg/dl (0.61-1.24)
[2016-10-04 05:57] LABS: ALBUMIN/GLOBULIN RATIO 0.7; CALCIUM 8.6 mg/dl (8.4-10.2); TOTAL PROTEIN 7.5 g/dl (6.1-8.1)
[2016-10-04] MEDS: INSULIN ASPART [NOVOLOG] 3 ML PEN SC SCH ×4 (07:50→21:00)
[2016-10-04 08:00] VITALS: BP 121/70; RESP 18
[2016-10-04] MEDS: SUCRALFATE 1 GM TAB PO SCH ×4 (09:06→20:54)
[2016-10-04] MEDS: DOCUSATE SODIUM 100 MG CAP PO SCH ×2 (09:06→21:00)
[2016-10-04] MEDS: ALLOPURINOL 300 MG TAB PO SCH (09:06)
[2016-10-04] MEDS: LIDO PO SCH ×4 (09:07→20:54)
[2016-10-04] MEDS: DIPHENHYD PO SCH ×4 (09:07→20:54)
[2016-10-04] MEDS: MYLANTA PO SCH ×4 (09:07→20:54)
[2016-10-04] MEDS: NYSTATIN SUSP 5 ML CUP PO SCH ×4 (09:07→20:54)
[2016-10-04] MEDS: FLUTICASONE 0.05% 16 GM NAS SPRAY NASAL SCH (09:08)
[2016-10-04] MEDS: POLYETHYLENE GLYCOL 17 GM PACKET PO SCH (09:11)
[2016-10-04] MEDS: LEVOFLOXACIN 750 MG TABLET PO SCH (09:13)
--- NOTE | 2016-10-04 13:46 | PN ---
Date/Time of Note Date/Time of Note DATE: 10/04/16 TIME: 13:38 Assessment/Plan VTE Prophylaxis VTE Prophylaxis Intervention: SCD's Lines/Catheters IV Catheter Type (from Nrs): PICC Line Central line still needed: Yes (for chemo ) Urinary Cath still in place: No Assessment/Plan Assessment/Plan 71 yo male with: 1. 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 Monitor thrombocytopenia closely as requiring transfusion, no further acute bleeding x1 week Per Hematology trial of Vidaza for 2nd chemo round started 10/01 x 7 days course, patient too weak for re-induction. 2. UGIB/Hematemesis: s/p EGD with hemoclipping followed by mesenteric angiogram yesterday with no source of acute bleeding found Hb has been stable since pRBC transfusion last week, platelets being kept >10K with transfusions Continue Protonix IV bid for now Tolerating mostly soft diet due to some odynophagia/sore throat. pRBC today 3. Diabetes mellitus, with associated neuropathy manifest by numbness in both feet. BG better controlled. BG stable, once better po intake, increase dosing of Lantus back up to 15 units qhs if needed and continue SSI. Zofran as needed for Nausea 4. Chronic benign positional vertigo. Continue Meclizine PRN 5. Gastroesophageal reflux disease/Gastric Ulcer s/p episode of bleeding. On Protonix IV BID per Dr John 6. Hypertension: on Norvasc. 7. Oral mucosa irritation, cold sore and odynophagia: Continue Abreva and mouth wash, Nystatin. improving 8. Klebsiella Pneumoniae UTI: on Levaquin now based on sensitivities, d/c on Prophylaxis. Sequential compression devices to lower extremity for DVT prevention, PPI for GI ppx DISPOSITION: S/p induction chemo, following counts, Bone Marrow bx 09/19, with poor risk AML and still with residual disease. 2nd round of chemo started 10/01, and Hematology following. Platelets given yesterday and likely to get pRBC today. Subjective 24 Hr Interval Summary Free Text/Dictation Patient feeling better Tolerating po today S/p 1 unit plts yesterday and likely to get pRBC today No acute bleeding observed Exam/Review of Systems Vital Signs Vitals Vital Signs Date Time Temp Pulse Resp B/P Pulse Ox O2 Delivery O2 Flow Rate FiO2 10/04/16 08:00 97.1 94 18 121/70 100 10/03/16 19:33 Room Air Intake and Output 10/03/16 10/03/16 10/04/16 15:00 23:00 07:00 Intake Total 2100 ml 1800 ml Output Total 1400 ml 1650 ml Balance 700 ml 150 ml Exam Constitutional: alert, frail, oriented Respiratory: clear to auscultation, normal air movement Cardiovascular: nl pulses, regular rate and rhythm Gastrointestinal: non-tender, soft Musculoskeletal: nl extremities to inspection Extremities: normal pulses, other (no edema, clubbing or cyanosis ) Neurological: INFORMATION DEVELOPER II-XII intact, nl mental status, nl speech, other ( generalised weakness ) Results Result Diagram: 10/04/16 0435 10/04/16 0435 Results 24 hrs Laboratory Tests Test 10/03/16 17:02 10/03/16 20:19 10/04/16 04:35 10/04/16 08:04 Bedside Glucose 173 157 105 Alanine Aminotransferase (ALT/SGPT) 17 Albumin 3.1 L Albumin/Globulin Ratio 0.70 Alkaline Phosphatase 93 Anion Gap 15 Aspartate Amino Transf (AST/SGOT) 21 Basophils # Basophils % 1.0 Blood Urea Nitrogen 8 Calcium Level 8.6 Carbon Dioxide Level 28 Chloride Level 101 Creatinine 0.76 Differential Comment Direct Bilirubin 0.00 Eosinophils # Eosinophils % 0.0 Globulin 4.40 H Glucose Level 128 Hematocrit 22.3 L Hemoglobin 7.2 L Indirect Bilirubin 0.2 Lymphocytes % 31.0 Mean Corpuscular Hemoglobin 28.1 L Mean Corpuscular Hemoglobin Concent 32.3 Mean Corpuscular Volume 87.1 Mean Platelet Volume 9.4 Monocytes % 48.0 H Neutrophils % 8.0 L Nucleated Red Blood Cells # Nucleated Red Blood Cells % 0.0 Platelet Count 59 #L Potassium Level 4.3 Red Blood Count 2.56 L Red Cell Distribution Width 14.9 H Sodium Level 140 Total Bilirubin 0.2 Total Protein 7.5 White Blood Count 4.8 Test 10/04/16 11:49 Bedside Glucose 195 Medications Medications Current Medications Miscellaneous Information 1 ea NOTE XX ; Start 08/31/16 at 02:00 Glucose (Glutose) 15 gm Q15M PRN PO DECREASED GLUCOSE; Start 08/31/16 at 02:00 Glucose (Glutose) 22.5 gm Q15M PRN PO DECREASED GLUCOSE; Start 08/31/16 at 02:00 Dextrose (D50w Syringe) 25 ml Q15M PRN IV DECREASED GLUCOSE Last administered on 09/25/16 12:29; Admin Dose 25 ML; Start 08/31/16 at 02:00 Dextrose (D50w Syringe) 50 ml Q15M PRN IV DECREASED GLUCOSE; Start 08/31/16 at 02:00 Glucagon (Glucagen) 1 mg Q15M PRN IM DECREASED GLUCOSE; Start 08/31/16 at 02:00 Glucose (Glutose) 15 gm Q15M PRN BUCCAL DECREASED GLUCOSE; Start 08/31/16 at 02: 00 Fluticasone Propionate (Flonase 0.05% Nasal) 2 spray DAILY NASAL Last administered on 10/04/16 09:08; Admin Dose 2 SPRAY; Start 08/31/16 at 09:00 Ondansetron HCl (Zofran Inj) 4 mg Q6H PRN IV NAUSEA AND/OR VOMITING Last administered on 10/02/16 09:20; Admin Dose 4 MG; Start 09/01/16 at 11:30 Diphenhydramine HCl (Benadryl) 25 mg Q6H PRN PO ITCHING Last administered on 01:00; Admin Dose 25 MG; Start 09/01/16 at 11:30 Guaifenesin/ Dextromethorphan (Robitussin Dm Liquid Cup) 10 ml Q4H PRN PO COUGH Last administered on 10/01/16 20:24; Admin Dose 10 ML; Start 09/02/16 at 14:00 Allopurinol (Zyloprim) 300 mg DAILY PO Last administered on 10/04/16 09:06; Admin Dose 300 MG; Start 09/04/16 at 16:30 IV Flush (NS 10 ml) 10 ml PRN PRN IV IV PROTOCOL; Start 09/05/16 at 12:30 Bisacodyl (Dulcolax Supp) 10 mg DAILY PRN [place] CONSTIPATION; Start 09/08/16 at 12 :00 Magnesium Hydroxide (Milk Of Mag) 30 ml DAILY PRN PO CONSTIPATION Last administered on 09/09/16 06:25; Admin Dose 30 ML; Start 09/08/16 at 12:00 Polyethylene Glycol (Miralax) 17 gm DAILY PO Last administered on 10/04/16 09: 11; Admin Dose 17 GM; Start 09/08/16 at 12:00 Docusate Sodium (Colace) 100 mg BID PO Last administered on 10/04/16 09:06; Admin Dose 100 MG; Start 09/08/16 at 21:00 Phenol (Cepastat Lozenge) 1 lozenge Q1H PRN [place] SORE THROAT Last administered on 09/17/16 20:16; Admin Dose 1 LOZENGE; Start 09/08/16 at 12:00 Amlodipine Besylate (Norvasc) 5 mg QHS PO Last administered on 10/03/16 20:45 ; Admin Dose 5 MG; Start 09/11/16 at 21:00 Miscellaneous Medication (Bax Susp) 30 ml QID PO Last administered on 13:30; Admin Dose 30 ML; Start 09/13/16 at 13:00 Nystatin (Nystatin Susp) 5 ml QID PO Last administered on 10/04/16 13:30; Admin Dose 5 ML; Start 09/14/16 at 17:00 Insulin Glargine (Lantus) 7.5 unit QHS SC Last administered on 10/03/16 20:47 ; Admin Dose 7.5 UNIT; Start 09/18/16 at 21:00 Diagnostic Test (Pha) (Accucheck) 1 ea 02 XX Last administered on 09/25/16 01: 44; Admin Dose 1 EA; Start 09/23/16 at 02:00 Acetaminophen 650 mg 650 mg Q6H PRN NE PAIN OR TEMP ABOVE 38C Last administered on 09/23/16 18:24; Admin Dose 650 MG; Start 09/23/16 at 18:00 Dextrose/Sodium Chloride (D5-NS) 1,000 ml @ 50 mls/hr Q20H IV Last administered on 10/01/16 09:55; Admin Dose 50 MLS/HR; Start 09/25/16 at 13:00 Al Hydrox/Mg Hydrox/Simethicone (Mag-Al Plus) 30 ml Q4 PO Last administered on 10/04/16 13:30; Admin Dose 30 ML; Start 09/25/16 at 15:00 Pantoprazole (Protonix Iv) 40 mg BID@06,18 IV Last administered on 10/04/16 05 :51; Admin Dose 40 MG; Start 09/26/16 at 18:00 Levofloxacin 750 mg 750 mg DAILY@09 PO Last administered on 10/04/16 09:13; Admin Dose 750 MG; Start 09/28/16 at 09:00 Azacitidine 120 mg/Sodium Chloride 100 ml @ 400 mls/hr DAILY@18 IVPB Last administered on 10/03/16 19:06; Admin Dose 400 MLS/HR; Start 10/01/16 at 18:00; Stop 10/07/16 at 18:14 Ondansetron HCl 16 mg/Sodium Chloride 58 ml @ 252 mls/hr DAILY@18 IV Last administered on 10/03/16 18:39; Admin Dose 252 MLS/HR; Start 10/01/16 at 18:00; Stop 10/07/16 at 18:14 Sodium Chloride (NS) 1,000 ml @ 50 mls/hr Q20H IV Last administered on 10:11; Admin Dose 50 MLS/HR; Start 10/01/16 at 17:30 TAM ROSE Oct 04, 2016 13:46
[2016-10-04 13:49] VITALS: BP 128/71; PULSE 97; RESP 20
[2016-10-04] MEDS: DEXTROSE 5%-0.9% NACL 1,000 ML IV SCH (17:00)
[2016-10-04] MEDS: ONDANSETRON INJ 16 MG in SOD CHLORIDE 0.9% 50 ML IV SCH (17:48)
[2016-10-04] MEDS: AZACITIDINE IVPB SCH (18:34)
[2016-10-04] MEDS: SOD CHLORIDE 0.9% IVPB SCH (18:34)
[2016-10-04 18:35] VITALS: BP 126/70; PULSE 93; RESP 18
[2016-10-04 18:50] VITALS: BP 120/72; PULSE 95; RESP 20
[2016-10-04] MEDS: AMLODIPINE 5 MG TAB PO SCH (20:56)
[2016-10-04] MEDS: INSULIN GLARGINE [LANtus] 3 ML PEN SC SCH (21:02)
[2016-10-05] MEDS: AL HYDROX/MG HYDROX/SIMETH 30 ML CUP PO SCH ×6 (01:00→20:59)
[2016-10-05] MEDS: ACCUCHECK XX SCH (01:00)
[2016-10-05] MEDS: PANTOPRAZOLE 40 MG INJ IV SCH ×2 (05:13→18:03)
[2016-10-05] MEDS: DIPHENHYDRAMINE 25 MG CAP PO PRN (05:17)
[2016-10-05 05:53] LABS: BILIRUBIN,INDIRECT 0.1 mg/dl (0-1.1); BILIRUBIN,TOTAL 0.1 mg/dl (0.2-1.3); CREATININE 0.78 mg/dl (0.61-1.24)
[2016-10-05 05:54] LABS: ALBUMIN/GLOBULIN RATIO 0.69; TOTAL PROTEIN 7.3 g/dl (6.1-8.1)
[2016-10-05 05:55] LABS: CALCIUM 8.5 mg/dl (8.4-10.2)
[2016-10-05 06:06] LABS: HEMATOCRIT 22.3 % (42.0-52.0); HEMOGLOBIN 7.7 g/dl (14.0-18.0); MEAN CORPUSCULAR HEMOGLOBIN 29.6 pg (29.0-33.0); MEAN CORPUSCULAR HGB CONC 34.7 g/dl (32.0-37.0); MEAN CORPUSCULAR VOLUME 85.2 fl (82.0-101.0); MEAN PLATELET VOLUME 7.8 fl (7.4-10.4); PLATELET COUNT 40 10^3/UL (140-440); RED BLOOD COUNT 2.61 10^6/ul (4.70-6.10); RED CELL DISTRIBUTION WIDTH 16.1 % (11.5-14.5); UNCORRECTED WBC 3.4 10^3/ul (4.8-10.8); WHITE BLOOD COUNT 3.4 10^3/ul (4.8-10.8)
[2016-10-05 06:07] LABS: CONDITION 1; LH ANALYZER COMMENTS 1; SUSPECT 1
[2016-10-05 08:09] VITALS: BP 142/65; RESP 16
[2016-10-05] MEDS: DEXTROSE 5%-0.9% NACL 1,000 ML IV SCH (09:12)
[2016-10-05] MEDS: NYSTATIN SUSP 5 ML CUP PO SCH ×4 (09:12→21:00)
[2016-10-05 09:13] LABS: EOSINOPHILS # 0.1 10^3/ul (0.0-0.5); LYMPHOCYTES # 1.5 10^3/ul (0.8-2.9); MONOCYTE # 1.3 10^3/ul (0.3-0.9); NEUTROPHIL # 0.5 10^3/ul (1.6-7.5)
[2016-10-05] MEDS: LIDO PO SCH ×4 (09:13→21:08)
[2016-10-05] MEDS: MYLANTA PO SCH ×4 (09:13→21:08)
[2016-10-05] MEDS: DIPHENHYD PO SCH ×4 (09:13→21:08)
[2016-10-05] MEDS: SUCRALFATE 1 GM TAB PO SCH ×4 (09:13→21:00)
[2016-10-05] MEDS: DOCUSATE SODIUM 100 MG CAP PO SCH ×2 (09:13→21:00)
[2016-10-05] MEDS: POLYETHYLENE GLYCOL 17 GM PACKET PO SCH (09:13)
[2016-10-05] MEDS: ALLOPURINOL 300 MG TAB PO SCH (09:13)
[2016-10-05 09:14] LABS: ANISOCYTOSIS 1+; PLATELET ESTIMATE PLT APPEAR DECREASED
[2016-10-05] MEDS: FLUTICASONE 0.05% 16 GM NAS SPRAY NASAL SCH (09:14)
[2016-10-05] MEDS: INSULIN ASPART [NOVOLOG] 3 ML PEN SC SCH ×4 (09:14→20:57)
[2016-10-05] MEDS: LEVOFLOXACIN 750 MG TABLET PO SCH (09:34)
--- NOTE | 2016-10-05 13:06 | PN ---
Date/Time of Note Date/Time of Note DATE: 10/05/16 TIME: 13:00 Assessment/Plan VTE Prophylaxis VTE Prophylaxis Intervention: SCD's Lines/Catheters IV Catheter Type (from Nrs): PICC Line Central line still needed: Yes (for Chemo) Urinary Cath still in place: No Assessment/Plan Assessment/Plan 71 yo male with: 1. 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 S/p multiple blood product transfusion including pRBCs and platelets Neutropenia resolved for now. Plts and Hb trending down but no need for transfusion today per Hematology. No further acute bleeding x1 week Per Hematology trial of Vidaza for 2nd chemo round started 10/01 x 7 days course, patient too weak for re-induction. 2. UGIB/Hematemesis: s/p EGD with hemoclipping followed by mesenteric angiogram yesterday with no source of acute bleeding found Hb has been stable since pRBC transfusion last week, platelets being kept >10K with transfusions Continue Protonix IV bid for now Tolerating mostly soft diet due to some odynophagia/sore throat. Monitoring h/h closely 3. Diabetes mellitus, with associated neuropathy manifest by numbness in both feet. BG better controlled. BG stable, once better po intake, increase dosing of Lantus back up to 15 units qhs if needed and continue SSI. Zofran as needed for Nausea 4. Chronic benign positional vertigo. Continue Meclizine PRN 5. Gastroesophageal reflux disease/Gastric Ulcer s/p episode of bleeding. On Protonix IV BID per Dr John 6. Hypertension: on Norvasc. 7. Oral mucosa irritation, cold sore and odynophagia: Continue Abreva and mouth wash, Nystatin. improving 8. Klebsiella Pneumoniae UTI: on Levaquin now based on sensitivities, d/c on Prophylaxis. Sequential compression devices to lower extremity for DVT prevention, PPI for GI ppx DISPOSITION: S/p induction chemo, following counts, Bone Marrow bx 09/19, with poor risk AML and still with residual disease. 2nd round of chemo started 10/01, and Hematology following. Subjective 24 Hr Interval Summary Free Text/Dictation Patient remains stable and a little stronger currently Much better spirits No complaints today Ongoing Chemo Exam/Review of Systems Vital Signs Vitals Vital Signs Date Time Temp Pulse Resp B/P Pulse Ox O2 Delivery O2 Flow Rate FiO2 10/05/16 08:09 97.6 79 16 142/65 100 10/04/16 18:50 Room Air Intake and Output 10/04/16 10/04/16 10/05/16 15:00 23:00 07:00 Intake Total 1758 ml 840 ml Output Total 400 ml 1600 ml Balance 1358 ml -760 ml Exam Constitutional: alert, frail, oriented, other (but looks better ans stronger x 2 days ) ENMT: other (very poor dentition ) Respiratory: clear to auscultation, normal air movement Cardiovascular: nl pulses, regular rate and rhythm Gastrointestinal: non-tender, soft Musculoskeletal: nl extremities to inspection Extremities: normal pulses, other (no edema, clubbing or cyanosis ) Neurological: FACTORY HAND II-XII intact, nl mental status, nl speech, other (much improved strength ) Results Result Diagram: 10/05/16 04210/05/16 0425 Results 24 hrs Laboratory Tests Test 10/04/16 17:44 10/04/16 20:53 10/05/16 04:20 10/05/16 04:25 Bedside Glucose 192 136 Anisocytosis 1+ Basophils # 0.0 Basophils % 1.0 Blood Morphology Comment Differential Comment MANUAL DIFF Eosinophils # 0.1 Eosinophils % 2.0 Hematocrit 22.3 L Hemoglobin 7.7 L Lymphocytes # 1.5 Lymphocytes % 44.0 Mean Corpuscular Hemoglobin 29.6 Mean Corpuscular Hemoglobin Concent 34.7 Mean Corpuscular Volume 85.2 Mean Platelet Volume 7.8 Monocytes # 1.3 H Monocytes % 39.0 H Neutrophils # 0.5 L Neutrophils % 14.0 L Nucleated Red Blood Cells # Nucleated Red Blood Cells % Platelet Count 40 #L Platelet Estimate PLT APPEAR DECREASED Red Blood Count 2.61 L Red Cell Distribution Width 16.1 H White Blood Count 3.4 #L Alanine Aminotransferase (ALT/SGPT) 18 Albumin 3.0 L Albumin/Globulin Ratio 0.69 Alkaline Phosphatase 88 Anion Gap 13 Aspartate Amino Transf (AST/SGOT) 13 L Blood Urea Nitrogen 7 Calcium Level 8.5 Carbon Dioxide Level 28 Chloride Level 101 Creatinine 0.78 Direct Bilirubin 0.00 Globulin 4.30 H Glucose Level 138 Indirect Bilirubin 0.1 Potassium Level 4.0 Sodium Level 138 Total Bilirubin 0.1 L Total Protein 7.3 Test 10/05/16 08:12 10/05/16 12:04 Bedside Glucose 194 187 Medications Medications Current Medications Miscellaneous Information 1 ea NOTE XX ; Start 08/31/16 at 02:00 Glucose (Glutose) 15 gm Q15M PRN PO DECREASED GLUCOSE; Start 08/31/16 at 02:00 Glucose (Glutose) 22.5 gm Q15M PRN PO DECREASED GLUCOSE; Start 08/31/16 at 02:00 Dextrose (D50w Syringe) 25 ml Q15M PRN IV DECREASED GLUCOSE Last administered on 09/25/16 12:29; Admin Dose 25 ML; Start 08/31/16 at 02:00 Dextrose (D50w Syringe) 50 ml Q15M PRN IV DECREASED GLUCOSE; Start 08/31/16 at 02:00 Glucagon (Glucagen) 1 mg Q15M PRN IM DECREASED GLUCOSE; Start 08/31/16 at 02:00 Glucose (Glutose) 15 gm Q15M PRN BUCCAL DECREASED GLUCOSE; Start 08/31/16 at 02: 00 Fluticasone Propionate (Flonase 0.05% Nasal) 2 spray DAILY NASAL Last administered on 10/05/16 09:14; Admin Dose 2 SPRAY; Start 08/31/16 at 09:00 Ondansetron HCl (Zofran Inj) 4 mg Q6H PRN IV NAUSEA AND/OR VOMITING Last administered on 10/02/16 09:20; Admin Dose 4 MG; Start 09/01/16 at 11:30 Diphenhydramine HCl (Benadryl) 25 mg Q6H PRN PO ITCHING Last administered on 05:17; Admin Dose 25 MG; Start 09/01/16 at 11:30 Guaifenesin/ Dextromethorphan (Robitussin Dm Liquid Cup) 10 ml Q4H PRN PO COUGH Last administered on 10/01/16 20:24; Admin Dose 10 ML; Start 09/02/16 at 14:00 Allopurinol (Zyloprim) 300 mg DAILY PO Last administered on 10/05/16 09:13; Admin Dose 300 MG; Start 09/04/16 at 16:30 IV Flush (NS 10 ml) 10 ml PRN PRN IV IV PROTOCOL; Start 09/05/16 at 12:30 Bisacodyl (Dulcolax Supp) 10 mg DAILY PRN [place] CONSTIPATION; Start 09/08/16 at 12 :00 Magnesium Hydroxide (Milk Of Mag) 30 ml DAILY PRN PO CONSTIPATION Last administered on 09/09/16 06:25; Admin Dose 30 ML; Start 09/08/16 at 12:00 Polyethylene Glycol (Miralax) 17 gm DAILY PO Last administered on 10/05/16 09: 13; Admin Dose 17 GM; Start 09/08/16 at 12:00 Docusate Sodium (Colace) 100 mg BID PO Last administered on 10/05/16 09:13; Admin Dose 100 MG; Start 09/08/16 at 21:00 Phenol (Cepastat Lozenge) 1 lozenge Q1H PRN MT SORE THROAT Last administered on 09/17/16 20:16; Admin Dose 1 LOZENGE; Start 09/08/16 at 12:00 Amlodipine Besylate (Norvasc) 5 mg QHS PO Last administered on 10/04/16 20:56 ; Admin Dose 5 MG; Start 09/11/16 at 21:00 Miscellaneous Medication (Bax Susp) 30 ml QID PO Last administered on 09:13; Admin Dose 30 ML; Start 09/13/16 at 13:00 Nystatin (Nystatin Susp) 5 ml QID PO Last administered on 10/05/16 12:53; Admin Dose 5 ML; Start 09/14/16 at 17:00 Insulin Glargine (Lantus) 7.5 unit QHS SC Last administered on 10/04/16 21:02 ; Admin Dose 7.5 UNIT; Start 09/18/16 at 21:00 Diagnostic Test (Pha) (Accucheck) 1 ea 02 XX Last administered on 09/25/16 01: 44; Admin Dose 1 EA; Start 09/23/16 at 02:00 Acetaminophen 650 mg 650 mg Q6H PRN [place] PAIN OR TEMP ABOVE 38C Last administered on 09/23/16 18:24; Admin Dose 650 MG; Start 09/23/16 at 18:00 Dextrose/Sodium Chloride (D5-NS) 1,000 ml @ 50 mls/hr Q20H IV Last administered on 10/05/16 09:12; Admin Dose 50 MLS/HR; Start 09/25/16 at 13:00 Al Hydrox/Mg Hydrox/Simethicone (Mag-Al Plus) 30 ml Q4 PO Last administered on 10/05/16 12:53; Admin Dose 30 ML; Start 09/25/16 at 15:00 Pantoprazole (Protonix Iv) 40 mg BID@06,18 IV Last administered on 10/05/16 05 :13; Admin Dose 40 MG; Start 09/26/16 at 18:00 Levofloxacin 750 mg 750 mg DAILY@09 PO Last administered on 10/05/16 09:34; Admin Dose 750 MG; Start 09/28/16 at 09:00 Azacitidine 120 mg/Sodium Chloride 100 ml @ 400 mls/hr DAILY@18 IVPB Last administered on 10/04/16 18:34; Admin Dose 400 MLS/HR; Start 10/01/16 at 18:00; Stop 10/07/16 at 18:14 Ondansetron HCl 16 mg/Sodium Chloride 58 ml @ 252 mls/hr DAILY@18 IV Last administered on 10/04/16 17:48; Admin Dose 252 MLS/HR; Start 10/01/16 at 18:00; Stop 10/07/16 at 18:14 Sodium Chloride (NS) 1,000 ml @ 50 mls/hr Q20H IV Last administered on 17:47; Admin Dose 50 MLS/HR; Start 10/01/16 at 17:30 TAM ROSE Oct 05, 2016 13:06
[2016-10-05] MEDS: AZACITIDINE IVPB SCH (18:34)
[2016-10-05] MEDS: ONDANSETRON INJ 16 MG in SOD CHLORIDE 0.9% 50 ML IV SCH (18:34)
[2016-10-05] MEDS: SOD CHLORIDE 0.9% IVPB SCH (18:34)
[2016-10-05 18:45] VITALS: BP 138/67; PULSE 87; RESP 18
[2016-10-05 19:03] VITALS: BP 133/68; PULSE 91
[2016-10-05 20:15] VITALS: BP 131/68; RESP 17
[2016-10-05] MEDS: AMLODIPINE 5 MG TAB PO SCH (20:59)
[2016-10-05] MEDS: INSULIN GLARGINE [LANtus] 3 ML PEN SC SCH (21:04)
[2016-10-05] MEDS: SOD CHLORIDE 0.9% 1,000 ML IV SCH (21:30)
[2016-10-06] MEDS: AL HYDROX/MG HYDROX/SIMETH 30 ML CUP PO SCH ×6 (01:00→21:18)
[2016-10-06] MEDS: ACCUCHECK XX SCH (02:00)
[2016-10-06] MEDS: SOD CHLORIDE 0.9% 1,000 ML IV SCH ×2 (03:05→17:30)
[2016-10-06] MEDS: PANTOPRAZOLE 40 MG INJ IV SCH ×2 (06:02→17:42)
[2016-10-06 07:22] LABS: HEMATOCRIT 23.7 % (42.0-52.0); HEMOGLOBIN 8.2 g/dl (14.0-18.0); MEAN CORPUSCULAR HEMOGLOBIN 29.6 pg (29.0-33.0); MEAN CORPUSCULAR HGB CONC 34.5 g/dl (32.0-37.0); MEAN CORPUSCULAR VOLUME 85.7 fl (82.0-101.0); MEAN PLATELET VOLUME 8.6 fl (7.4-10.4); RED BLOOD COUNT 2.76 10^6/ul (4.70-6.10); UNCORRECTED WBC 3.8 10^3/ul (4.8-10.8); WHITE BLOOD COUNT 3.8 10^3/ul (4.8-10.8)
[2016-10-06 07:27] LABS: ALBUMIN 3.1 g/dl (3.3-4.9)
[2016-10-06 07:28] LABS: POTASSIUM 4.1 mmol/L (3.5-5.1)
[2016-10-06 07:30] LABS: ALBUMIN/GLOBULIN RATIO 0.7; BILIRUBIN,INDIRECT 0.3 mg/dl (0-1.1); BILIRUBIN,TOTAL 0.3 mg/dl (0.2-1.3); CREATININE 0.84 mg/dl (0.61-1.24); TOTAL PROTEIN 7.5 g/dl (6.1-8.1)
[2016-10-06 07:31] LABS: CALCIUM 8.8 mg/dl (8.4-10.2)
[2016-10-06 07:32] LABS: CONDITION 1; LH ANALYZER COMMENTS 1; PLATELET COUNT 28 10^3/UL (140-440); SUSPECT 1
[2016-10-06 07:42] LABS: MAGNESIUM 2.1 mg/dl (1.7-2.5); PHOSPHORUS 2.4 mg/dl (2.5-4.9)
[2016-10-06 08:26] VITALS: BP 118/63; RESP 20
--- NOTE | 2016-10-06 08:44 | PN ---
Date/Time of Note Date/Time of Note DATE: 10/06/16 TIME: 08:40 Assessment/Plan VTE Prophylaxis VTE Prophylaxis Intervention: SCD's Lines/Catheters IV Catheter Type (from Nrs): PICC Line Central line still needed: Yes (for Chemo ) Urinary Cath still in place: No Assessment/Plan Assessment/Plan 71 yo male with: 1. 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 S/p multiple blood product transfusion including pRBCs and platelets Neutropenia resolved for now. Plts and Hb trending down but no need for transfusion today per Hematology. No further acute bleeding x1 week Per Hematology trial of Vidaza for 2nd chemo round started 10/01 x 7 days course, patient too weak for re-induction. 2. UGIB/Hematemesis: s/p EGD with hemoclipping followed by mesenteric angiogram yesterday with no source of acute bleeding found Hb has been stable since pRBC transfusion last week, platelets being kept >10K with transfusions Continue Protonix IV bid for now Tolerating mostly soft diet due to some odynophagia/sore throat. Monitoring h/h closely 3. Diabetes mellitus, with associated neuropathy manifest by numbness in both feet. BG better controlled. BG stable, once better po intake, increase dosing of Lantus back up to 15 units qhs if needed and continue SSI. Zofran as needed for Nausea 4. Chronic benign positional vertigo. Continue Meclizine PRN 5. Gastroesophageal reflux disease/Gastric Ulcer s/p episode of bleeding. On Protonix IV BID per Dr John 6. Hypertension: on Norvasc. 7. Oral mucosa irritation, cold sore and odynophagia: Continue Abreva and mouth wash, Nystatin. improving 8. Klebsiella Pneumoniae UTI: on Levaquin now based on sensitivities, d/c on Prophylaxis. Sequential compression devices to lower extremity for DVT prevention, PPI for GI ppx DISPOSITION: S/p induction chemo, following counts, Bone Marrow bx 09/19, with poor risk AML and still with residual disease. 2nd round of chemo started 10/01, and Hematology following. Subjective 24 Hr Interval Summary Free Text/Dictation Patient doing better today No complaints, afebrile and counts fairly stable Better po intake Day 01/28 chemo Exam/Review of Systems Vital Signs Vitals Vital Signs Date Time Temp Pulse Resp B/P Pulse Ox O2 Delivery O2 Flow Rate FiO2 10/06/16 08:26 97.8 94 20 118/63 100 10/05/16 18:45 Room Air Intake and Output 10/05/16 10/05/16 10/06/16 15:00 23:00 07:00 Intake Total 858 ml 810 ml Output Total 1100 ml Balance 858 ml -290 ml Exam Constitutional: alert, frail, oriented, other (much better and stronger ) Respiratory: clear to auscultation, normal air movement Cardiovascular: nl pulses, regular rate and rhythm Gastrointestinal: non-tender, soft 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, nl mental status, nl speech, other (getting stornger ) Results Result Diagram: 10/06/16 0606 10/06/16 0606 Results 24 hrs Laboratory Tests Test 10/05/16 12:04 10/05/16 18:01 10/05/16 20:56 10/06/16 06:06 Bedside Glucose 187 263 H 129 Alanine Aminotransferase (ALT/SGPT) 19 Albumin 3.1 L Albumin/Globulin Ratio 0.70 Alkaline Phosphatase 91 Anion Gap 12 Aspartate Amino Transf (AST/SGOT) 13 L Basophils # Basophils % Blood Morphology Comment Blood Urea Nitrogen 7 Calcium Level 8.8 Carbon Dioxide Level 28 Chloride Level 103 Creatinine 0.84 Direct Bilirubin 0.00 Eosinophils # Eosinophils % Globulin 4.40 H Glucose Level 118 Hematocrit 23.7 L Hemoglobin 8.2 L Indirect Bilirubin 0.3 Lymphocytes # Lymphocytes % Magnesium Level 2.1 Mean Corpuscular Hemoglobin 29.6 Mean Corpuscular Hemoglobin Concent 34.5 Mean Corpuscular Volume 85.7 Mean Platelet Volume 8.6 Monocytes # Neutrophils # Neutrophils % Nucleated Red Blood Cells # Nucleated Red Blood Cells % Phosphorus Level 2.4 L Platelet Count 28 #*L Potassium Level 4.1 Red Blood Count 2.76 L Red Cell Distribution Width 16.0 H Sodium Level 139 Total Bilirubin 0.3 Total Protein 7.5 White Blood Count 3.8 L Test 10/06/16 07:57 Bedside Glucose 149 Medications Medications Current Medications Miscellaneous Information 1 ea NOTE XX ; Start 08/31/16 at 02:00 Glucose (Glutose) 15 gm Q15M PRN PO DECREASED GLUCOSE; Start 08/31/16 at 02:00 Glucose (Glutose) 22.5 gm Q15M PRN PO DECREASED GLUCOSE; Start 08/31/16 at 02:00 Dextrose (D50w Syringe) 25 ml Q15M PRN IV DECREASED GLUCOSE Last administered on 09/25/16 12:29; Admin Dose 25 ML; Start 08/31/16 at 02:00 Dextrose (D50w Syringe) 50 ml Q15M PRN IV DECREASED GLUCOSE; Start 08/31/16 at 02:00 Glucagon (Glucagen) 1 mg Q15M PRN IM DECREASED GLUCOSE; Start 08/31/16 at 02:00 Glucose (Glutose) 15 gm Q15M PRN BUCCAL DECREASED GLUCOSE; Start 08/31/16 at 02: 00 Fluticasone Propionate (Flonase 0.05% Nasal) 2 spray DAILY NASAL Last administered on 10/05/16 09:14; Admin Dose 2 SPRAY; Start 08/31/16 at 09:00 Ondansetron HCl (Zofran Inj) 4 mg Q6H PRN IV NAUSEA AND/OR VOMITING Last administered on 10/02/16 09:20; Admin Dose 4 MG; Start 09/01/16 at 11:30 Diphenhydramine HCl (Benadryl) 25 mg Q6H PRN PO ITCHING Last administered on 05:17; Admin Dose 25 MG; Start 09/01/16 at 11:30 Guaifenesin/ Dextromethorphan (Robitussin Dm Liquid Cup) 10 ml Q4H PRN PO COUGH Last administered on 10/01/16 20:24; Admin Dose 10 ML; Start 09/02/16 at 14:00 Allopurinol (Zyloprim) 300 mg DAILY PO Last administered on 10/05/16 09:13; Admin Dose 300 MG; Start 09/04/16 at 16:30 IV Flush (NS 10 ml) 10 ml PRN PRN IV IV PROTOCOL; Start 09/05/16 at 12:30 Bisacodyl (Dulcolax Supp) 10 mg DAILY PRN [place] CONSTIPATION; Start 09/08/16 at 12 :00 Magnesium Hydroxide (Milk Of Mag) 30 ml DAILY PRN PO CONSTIPATION Last administered on 09/09/16 06:25; Admin Dose 30 ML; Start 09/08/16 at 12:00 Polyethylene Glycol (Miralax) 17 gm DAILY PO Last administered on 10/05/16 09: 13; Admin Dose 17 GM; Start 09/08/16 at 12:00 Docusate Sodium (Colace) 100 mg BID PO Last administered on 10/05/16 21:00; Admin Dose 100 MG; Start 09/08/16 at 21:00 Phenol (Cepastat Lozenge) 1 lozenge Q1H PRN MT SORE THROAT Last administered on 09/17/16 20:16; Admin Dose 1 LOZENGE; Start 09/08/16 at 12:00 Amlodipine Besylate (Norvasc) 5 mg QHS PO Last administered on 10/05/16 20:59 ; Admin Dose 5 MG; Start 09/11/16 at 21:00 Miscellaneous Medication (Bax Susp) 30 ml QID PO Last administered on 21:08; Admin Dose 30 ML; Start 09/13/16 at 13:00 Nystatin (Nystatin Susp) 5 ml QID PO Last administered on 10/05/16 21:00; Admin Dose 5 ML; Start 09/14/16 at 17:00 Insulin Glargine (Lantus) 7.5 unit QHS SC Last administered on 10/05/16 21:04 ; Admin Dose 7.5 UNIT; Start 09/18/16 at 21:00 Diagnostic Test (Pha) (Accucheck) 1 ea 02 XX Last administered on 09/25/16 01: 44; Admin Dose 1 EA; Start 09/23/16 at 02:00 Acetaminophen 650 mg 650 mg Q6H PRN AL PAIN OR TEMP ABOVE 38C Last administered on 09/23/16 18:24; Admin Dose 650 MG; Start 09/23/16 at 18:00 Dextrose/Sodium Chloride (D5-NS) 1,000 ml @ 50 mls/hr Q20H IV Last administered on 10/05/16 09:12; Admin Dose 50 MLS/HR; Start 09/25/16 at 13:00 Al Hydrox/Mg Hydrox/Simethicone (Mag-Al Plus) 30 ml Q4 PO Last administered on 10/06/16 06:02; Admin Dose 30 ML; Start 09/25/16 at 15:00 Pantoprazole (Protonix Iv) 40 mg BID@06,18 IV Last administered on 10/06/16 06 :02; Admin Dose 40 MG; Start 09/26/16 at 18:00 Levofloxacin 750 mg 750 mg DAILY@09 PO Last administered on 10/05/16 09:34; Admin Dose 750 MG; Start 09/28/16 at 09:00 Azacitidine 120 mg/Sodium Chloride 100 ml @ 400 mls/hr DAILY@18 IVPB Last administered on 10/05/16 18:34; Admin Dose 400 MLS/HR; Start 10/01/16 at 18:00; Stop 10/07/16 at 18:14 Ondansetron HCl 16 mg/Sodium Chloride 58 ml @ 252 mls/hr DAILY@18 IV Last administered on 10/05/16 18:34; Admin Dose 252 MLS/HR; Start 10/01/16 at 18:00; Stop 10/07/16 at 18:14 Sodium Chloride (NS) 1,000 ml @ 50 mls/hr Q20H IV Last administered on 03:05; Admin Dose 50 MLS/HR; Start 10/01/16 at 17:30 TAM ROSE Oct 06, 2016 08:44
[2016-10-06] MEDS: ALLOPURINOL 300 MG TAB PO SCH (08:51)
[2016-10-06] MEDS: DOCUSATE SODIUM 100 MG CAP PO SCH ×2 (08:51→20:53)
[2016-10-06] MEDS: FLUTICASONE 0.05% 16 GM NAS SPRAY NASAL SCH (08:51)
[2016-10-06] MEDS: SUCRALFATE 1 GM TAB PO SCH ×4 (08:51→20:53)
[2016-10-06] MEDS: NYSTATIN SUSP 5 ML CUP PO SCH ×4 (08:51→21:18)
[2016-10-06] MEDS: POLYETHYLENE GLYCOL 17 GM PACKET PO SCH (08:52)
[2016-10-06] MEDS: INSULIN ASPART [NOVOLOG] 3 ML PEN SC SCH ×4 (08:53→21:00)
[2016-10-06] MEDS: DIPHENHYD PO SCH ×4 (09:00→21:00)
[2016-10-06] MEDS: DEXTROSE 5%-0.9% NACL 1,000 ML IV SCH (09:00)
[2016-10-06] MEDS: LEVOFLOXACIN 750 MG TABLET PO SCH ×2 (09:00→13:55)
[2016-10-06] MEDS: LIDO PO SCH ×4 (09:00→21:00)
[2016-10-06] MEDS: MYLANTA PO SCH ×4 (09:00→21:00)
[2016-10-06 12:35] LABS: LYMPHOCYTES # 1.4 10^3/ul (0.8-2.9); MONOCYTE # 2.1 10^3/ul (0.3-0.9); NEUTROPHIL # 0.1 10^3/ul (1.6-7.5)
--- NOTE | 2016-10-06 13:48 | CONS ---
Date/Time of Note Date/Time of Note DATE: 10/06/16 TIME: 13:47 Assessment/Plan Assessment/Plan Chief Complaint/Hosp Course 71 yo with CMML who is currently off therapy admitted for symptomatic anemia and thrombocytopenia. 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 Pt has completed 7+3 and tolerated chemotherapy well thus far. Preliminary report of Day 14 bone marrow still shows residual disease. Given patient is too weak for re-induction chemotherapy will proceed with Vidaza, hypomethylating agent when patient counts recover. Problems: Additional Assessment/Plan -Given poor risk AML and day 14 bone marrow with residual disease, and patient too sick for re-induction, will plan for vidaza 75 mg/m2 IV D1-7. Patient started on Vidaza 10/01/16. - Plt are currently >20K. Thrombocytopenia may be partly due to prior induction chemo and partly due to residual disease. Goal of Vidaza is palliative, patient would not be a good transplant or clinical trial candidate given his performance status and poor tolerance of induction chemotherapy requiring ICU admission. -Continue allopurinol -Patient underwent EGD on 09/23/16 that demonstrated gastric ulcer covered by clot s/p hemoclipping, now s/p mesenteric angiogram and embolization of the left gastric artery. Patient was in the ICU, now back on [facility] floor. Hematemesis resolved. -Patient will need to stay inpatient for 3-4 weeks to await count recovery and monitor for infection, transfusions, etc. Plt goal > 50K if bleeding, > 20K if febrile, otherwise >10K. -Discussed with patient's daughter Tawny ([phone]) who was updated on situation and plan Consultation Date/Type/Reason Admit Date/Time Aug 31, 2016 at 00:38 Initial Consult Date 09/02/16 Type of Consultation: Hematology/Oncology Reason for Consultation AML Referring Provider: TAM ROSE 24 HR Interval Summary Free Text/Dictation continues on Vidaza. today is his 6th dose. feels. well. no evidence of GI bleed Exam/Review of Systems Vital Signs Vitals Vital Signs Date Time Temp Pulse Resp B/P Pulse Ox O2 Delivery O2 Flow Rate FiO2 10/06/16 08:26 97.8 94 20 118/63 100 10/05/16 18:45 Room Air Intake and Output 10/05/16 10/05/16 10/06/16 15:00 23:00 07:00 Intake Total 858 ml 810 ml Output Total 1100 ml Balance 858 ml -290 ml Exam Constitutional: alert, oriented Psych: no complaints Head: normocephalic Eyes: nl conjunctiva ENMT: nl external ears & nose Neck: non-tender, supple Respiratory: clear to auscultation, normal air movement Cardiovascular: regular rate and rhythm Gastrointestinal: soft Musculoskeletal: nl extremities to inspection, nl gait and stance Extremities: normal pulses Results Result Diagram: 10/06/16 0606 10/06/16 0606 Results 24 hrs Laboratory Tests Test 10/05/16 18:01 10/05/16 20:56 10/06/16 06:06 10/06/16 07:57 Bedside Glucose 263 H 129 149 Alanine Aminotransferase (ALT/SGPT) 19 Albumin 3.1 L Albumin/Globulin Ratio 0.70 Alkaline Phosphatase 91 Anion Gap 12 Aspartate Amino Transf (AST/SGOT) 13 L Band Neutrophils % 2.0 Basophils # 0.0 Basophils % 1.0 Blast Cells % 3.0 H Blastocytes # 0.1 Blood Morphology Comment Blood Urea Nitrogen 7 Calcium Level 8.8 Carbon Dioxide Level 28 Chloride Level 103 Creatinine 0.84 Direct Bilirubin 0.00 Eosinophils # Eosinophils % Globulin 4.40 H Glucose Level 118 Hematocrit 23.7 L Hemoglobin 8.2 L Indirect Bilirubin 0.3 Lymphocytes # 1.4 Lymphocytes % 37.0 Magnesium Level 2.1 Mean Corpuscular Hemoglobin 29.6 Mean Corpuscular Hemoglobin Concent 34.5 Mean Corpuscular Volume 85.7 Mean Platelet Volume 8.6 Monocytes # 2.1 H Monocytes % 55.0 H Neutrophils # 0.1 L Neutrophils % 2.0 L Nucleated Red Blood Cells # Nucleated Red Blood Cells % Phosphorus Level 2.4 L Platelet Count 28 #*L Potassium Level 4.1 Red Blood Count 2.76 L Red Cell Distribution Width 16.0 H Sodium Level 139 Total Bilirubin 0.3 Total Protein 7.5 White Blood Count 3.8 L Test 10/06/16 11:28 Bedside Glucose 180 Medications Medications Current Medications Miscellaneous Information 1 ea NOTE XX ; Start 08/31/16 at 02:00 Glucose (Glutose) 15 gm Q15M PRN PO DECREASED GLUCOSE; Start 08/31/16 at 02:00 Glucose (Glutose) 22.5 gm Q15M PRN PO DECREASED GLUCOSE; Start 08/31/16 at 02:00 Dextrose (D50w Syringe) 25 ml Q15M PRN IV DECREASED GLUCOSE Last administered on 09/25/16 12:29; Admin Dose 25 ML; Start 08/31/16 at 02:00 Dextrose (D50w Syringe) 50 ml Q15M PRN IV DECREASED GLUCOSE; Start 08/31/16 at 02:00 Glucagon (Glucagen) 1 mg Q15M PRN IM DECREASED GLUCOSE; Start 08/31/16 at 02:00 Glucose (Glutose) 15 gm Q15M PRN BUCCAL DECREASED GLUCOSE; Start 08/31/16 at 02: 00 Fluticasone Propionate (Flonase 0.05% Nasal) 2 spray DAILY NASAL Last administered on 10/06/16 08:51; Admin Dose 2 SPRAY; Start 08/31/16 at 09:00 Ondansetron HCl (Zofran Inj) 4 mg Q6H PRN IV NAUSEA AND/OR VOMITING Last administered on 10/02/16 09:20; Admin Dose 4 MG; Start 09/01/16 at 11:30 Diphenhydramine HCl (Benadryl) 25 mg Q6H PRN PO ITCHING Last administered on 05:17; Admin Dose 25 MG; Start 09/01/16 at 11:30 Guaifenesin/ Dextromethorphan (Robitussin Dm Liquid Cup) 10 ml Q4H PRN PO COUGH Last administered on 10/01/16 20:24; Admin Dose 10 ML; Start 09/02/16 at 14:00 Allopurinol (Zyloprim) 300 mg DAILY PO Last administered on 10/06/16 08:51; Admin Dose 300 MG; Start 09/04/16 at 16:30 IV Flush (NS 10 ml) 10 ml PRN PRN IV IV PROTOCOL; Start 09/05/16 at 12:30 Bisacodyl (Dulcolax Supp) 10 mg DAILY PRN [place] CONSTIPATION; Start 09/08/16 at 12 :00 Magnesium Hydroxide (Milk Of Mag) 30 ml DAILY PRN PO CONSTIPATION Last administered on 09/09/16 06:25; Admin Dose 30 ML; Start 09/08/16 at 12:00 Polyethylene Glycol (Miralax) 17 gm DAILY PO Last administered on 10/06/16 08: 52; Admin Dose 17 GM; Start 09/08/16 at 12:00 Docusate Sodium (Colace) 100 mg BID PO Last administered on 10/06/16 08:51; Admin Dose 100 MG; Start 09/08/16 at 21:00 Phenol (Cepastat Lozenge) 1 lozenge Q1H PRN MT SORE THROAT Last administered on 09/17/16 20:16; Admin Dose 1 LOZENGE; Start 09/08/16 at 12:00 Amlodipine Besylate (Norvasc) 5 mg QHS PO Last administered on 10/05/16 20:59 ; Admin Dose 5 MG; Start 09/11/16 at 21:00 Miscellaneous Medication (Bax Susp) 30 ml QID PO Last administered on 21:08; Admin Dose 30 ML; Start 09/13/16 at 13:00 Nystatin (Nystatin Susp) 5 ml QID PO Last administered on 10/06/16 13:10; Admin Dose 5 ML; Start 09/14/16 at 17:00 Insulin Glargine (Lantus) 7.5 unit QHS SC Last administered on 10/05/16 21:04 ; Admin Dose 7.5 UNIT; Start 09/18/16 at 21:00 Diagnostic Test (Pha) (Accucheck) 1 ea 02 XX Last administered on 09/25/16 01: 44; Admin Dose 1 EA; Start 09/23/16 at 02:00 Acetaminophen 650 mg 650 mg Q6H PRN [place] PAIN OR TEMP ABOVE 38C Last administered on 09/23/16 18:24; Admin Dose 650 MG; Start 09/23/16 at 18:00 Dextrose/Sodium Chloride (D5-NS) 1,000 ml @ 50 mls/hr Q20H IV Last administered on 10/05/16 09:12; Admin Dose 50 MLS/HR; Start 09/25/16 at 13:00 Al Hydrox/Mg Hydrox/Simethicone (Mag-Al Plus) 30 ml Q4 PO Last administered on 10/06/16 13:10; Admin Dose 30 ML; Start 09/25/16 at 15:00 Pantoprazole (Protonix Iv) 40 mg BID@06,18 IV Last administered on 10/06/16 06 :02; Admin Dose 40 MG; Start 09/26/16 at 18:00 Levofloxacin 750 mg 750 mg DAILY@09 PO Last administered on 10/05/16 09:34; Admin Dose 750 MG; Start 09/28/16 at 09:00 Azacitidine 120 mg/Sodium Chloride 100 ml @ 400 mls/hr DAILY@18 IVPB Last administered on 10/05/16 18:34; Admin Dose 400 MLS/HR; Start 10/01/16 at 18:00; Stop 10/07/16 at 18:14 Ondansetron HCl 16 mg/Sodium Chloride 58 ml @ 252 mls/hr DAILY@18 IV Last administered on 10/05/16 18:34; Admin Dose 252 MLS/HR; Start 10/01/16 at 18:00; Stop 10/07/16 at 18:14 Sodium Chloride (NS) 1,000 ml @ 50 mls/hr Q20H IV Last administered on 03:05; Admin Dose 50 MLS/HR; Start 10/01/16 at 17:30 MISHA FOREMAN M.D. Oct 06, 2016 13:48
[2016-10-06] MEDS: ONDANSETRON INJ 16 MG in SOD CHLORIDE 0.9% 50 ML IV SCH (18:00)
[2016-10-06] MEDS: SOD CHLORIDE 0.9% IVPB SCH (18:01)
[2016-10-06] MEDS: AZACITIDINE IVPB SCH (18:01)
[2016-10-06 21:10] VITALS: BP 113/67; RESP 18
[2016-10-06] MEDS: AMLODIPINE 5 MG TAB PO SCH (21:19)
[2016-10-06] MEDS: INSULIN GLARGINE [LANtus] 3 ML PEN SC SCH (21:25)
[2016-10-07] VITALS (7 sets, daily range): BP systolic 123–147; BP diastolic 56–72; PULSE 80–88; RESP 18–19
[2016-10-07] MEDS: DIPHENHYDRAMINE 25 MG CAP PO PRN ×2 (00:18→23:38)
[2016-10-07] MEDS: AL HYDROX/MG HYDROX/SIMETH 30 ML CUP PO SCH ×6 (00:30→21:19)
[2016-10-07] MEDS: ACCUCHECK XX SCH (00:30)
[2016-10-07] MEDS: DEXTROSE 5%-0.9% NACL 1,000 ML IV SCH ×2 (04:15→05:00)
[2016-10-07] MEDS: SOD CHLORIDE 0.9% 1,000 ML IV SCH (04:30)
[2016-10-07 05:59] LABS: HEMATOCRIT 21.7 % (42.0-52.0); HEMOGLOBIN 7.5 g/dl (14.0-18.0); MEAN CORPUSCULAR HEMOGLOBIN 29.3 pg (29.0-33.0); MEAN CORPUSCULAR HGB CONC 34.5 g/dl (32.0-37.0); MEAN CORPUSCULAR VOLUME 84.8 fl (82.0-101.0); MEAN PLATELET VOLUME 8.9 fl (7.4-10.4); RED BLOOD COUNT 2.55 10^6/ul (4.70-6.10); RED CELL DISTRIBUTION WIDTH 16.2 % (11.5-14.5); UNCORRECTED WBC 3.4 10^3/ul (4.8-10.8); WHITE BLOOD COUNT 3.4 10^3/ul (4.8-10.8)
[2016-10-07 06:09] LABS: POTASSIUM 3.8 mmol/L (3.5-5.1)
[2016-10-07 06:11] LABS: BILIRUBIN,INDIRECT 0.3 mg/dl (0-1.1); BILIRUBIN,TOTAL 0.3 mg/dl (0.2-1.3); CREATININE 0.75 mg/dl (0.61-1.24)
[2016-10-07 06:12] LABS: ALBUMIN/GLOBULIN RATIO 0.71; CALCIUM 8.8 mg/dl (8.4-10.2); TOTAL PROTEIN 7.2 g/dl (6.1-8.1)
[2016-10-07 06:21] LABS: CONDITION 1; LH ANALYZER COMMENTS 1; SUSPECT 1
[2016-10-07 06:24] LABS: PLATELET COUNT 18 10^3/UL (140-440)
[2016-10-07] MEDS: INSULIN ASPART [NOVOLOG] 3 ML PEN SC SCH ×4 (07:50→21:00)
[2016-10-07] MEDS: POLYETHYLENE GLYCOL 17 GM PACKET PO SCH (09:00)
[2016-10-07] MEDS: DOCUSATE SODIUM 100 MG CAP PO SCH ×2 (09:00→21:00)
[2016-10-07] MEDS: ALLOPURINOL 300 MG TAB PO SCH (09:02)
[2016-10-07] MEDS: FLUTICASONE 0.05% 16 GM NAS SPRAY NASAL SCH (09:02)
[2016-10-07] MEDS: PANTOPRAZOLE 40 MG INJ IV SCH ×2 (09:02→17:37)
[2016-10-07] MEDS: NYSTATIN SUSP 5 ML CUP PO SCH ×4 (09:02→21:19)
[2016-10-07] MEDS: SUCRALFATE 1 GM TAB PO SCH ×4 (09:09→21:19)
[2016-10-07] MEDS: DIPHENHYD PO SCH ×5 (09:09→21:20)
[2016-10-07] MEDS: MYLANTA PO SCH ×5 (09:09→21:20)
[2016-10-07] MEDS: LIDO PO SCH ×5 (09:09→21:20)
[2016-10-07 10:29] LABS: LYMPHOCYTES # 2.2 10^3/ul (0.8-2.9); MONOCYTE # 0.9 10^3/ul (0.3-0.9); NEUTROPHIL # 0.1 10^3/ul (1.6-7.5); PLATELET ESTIMATE PLT APPEAR DECREASED
--- NOTE | 2016-10-07 11:32 | CONS ---
Date/Time of Note Date/Time of Note DATE: 10/07/16 TIME: 11:30 Assessment/Plan Assessment/Plan Chief Complaint/Hosp Course 71 yo with CMML who is currently off therapy admitted for symptomatic anemia and thrombocytopenia. 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 Pt has completed 7+3 and tolerated chemotherapy well thus far. Preliminary report of Day 14 bone marrow still shows residual disease. Given patient is too weak for re-induction chemotherapy will proceed with Vidaza, hypomethylating agent when patient counts recover. Problems: Additional Assessment/Plan -Given poor risk AML and day 14 bone marrow with residual disease, and patient too sick for re-induction, will plan for vidaza 75 mg/m2 IV D1-7. Patient started on Vidaza 10/01/16. - Plt are currently >20K. Thrombocytopenia may be partly due to prior induction chemo and partly due to residual disease. Goal of Vidaza is palliative, patient would not be a good transplant or clinical trial candidate given his performance status and poor tolerance of induction chemotherapy requiring ICU admission. -given Hg< 8 , will transfuse 2 units of PRBCs today -Continue allopurinol -Patient underwent EGD on 09/23/16 that demonstrated gastric ulcer covered by clot s/p hemoclipping, now s/p mesenteric angiogram and embolization of the left gastric artery. Patient was in the ICU, now back on med surg floor. Hematemesis resolved. -Patient will need to stay inpatient for 3-4 weeks to await count recovery and monitor for infection, transfusions, etc. Plt goal > 50K if bleeding, > 20K if febrile, otherwise >10K. -Discussed with patient's daughter Tawny ([phone]) who was updated on situation and plan Consultation Date/Type/Reason Admit Date/Time Aug 31, 2016 at 00:38 Initial Consult Date 09/02/16 Type of Consultation: Hematology/Oncology Reason for Consultation AML Referring Provider: TAM ROSE 24 HR Interval Summary Free Text/Dictation to receive last dose of Vidaza today. no complaints. no further GI bleeding noted Exam/Review of Systems Vital Signs Vitals Vital Signs Date Time Temp Pulse Resp B/P Pulse Ox O2 Delivery O2 Flow Rate FiO2 10/07/16 08:12 98.0 89 19 139/63 99 2/12/17 18:45 Room Air Intake and Output 10/06/16 10/06/16 10/07/16 14:59 22:59 06:59 Intake Total 838 ml 925 ml Balance 838 ml 925 ml Exam Constitutional: alert, oriented Psych: no complaints Head: normocephalic Eyes: nl conjunctiva ENMT: nl external ears & nose, nl lips & teeth Neck: non-tender, supple Respiratory: clear to auscultation, normal air movement Cardiovascular: regular rate and rhythm Gastrointestinal: soft Musculoskeletal: nl extremities to inspection, nl gait and stance Results Result Diagram: 10/07/16 0440 10/07/16 0440 Results 24 hrs Laboratory Tests Test 10/06/16 17:28 10/06/16 20:51 10/07/16 04:40 10/07/16 09:00 Bedside Glucose 146 153 90 Alanine Aminotransferase (ALT/SGPT) 17 Albumin 3.0 L Albumin/Globulin Ratio 0.71 Alkaline Phosphatase 88 Anion Gap 12 Aspartate Amino Transf (AST/SGOT) 13 L Band Neutrophils % 1.0 Basophils # Basophils % Blast Cells % 4.0 H Blastocytes # 0.1 Blood Morphology Comment Blood Urea Nitrogen 8 Calcium Level 8.8 Carbon Dioxide Level 27 Chloride Level 104 Creatinine 0.75 Direct Bilirubin 0.00 Eosinophils # 0.0 Eosinophils % 1.0 Globulin 4.20 H Glucose Level 75 # Hematocrit 21.7 L Hemoglobin 7.5 L Indirect Bilirubin 0.3 Lymphocytes # 2.2 Lymphocytes % 65.0 H Mean Corpuscular Hemoglobin 29.3 Mean Corpuscular Hemoglobin Concent 34.5 Mean Corpuscular Volume 84.8 Mean Platelet Volume 8.9 Monocytes # 0.9 Monocytes % 25.0 H Neutrophils # 0.1 L Neutrophils % 4.0 L Nucleated Red Blood Cells # Nucleated Red Blood Cells % Platelet Count 18 #*L Platelet Estimate PLT APPEAR DECREASED Potassium Level 3.8 Red Blood Count 2.55 L Red Cell Distribution Width 16.2 H Sodium Level 139 Total Bilirubin 0.3 Total Protein 7.2 White Blood Count 3.4 L Medications Medications Current Medications Miscellaneous Information 1 ea NOTE XX ; Start 08/31/16 at 02:00 Glucose (Glutose) 15 gm Q15M PRN PO DECREASED GLUCOSE; Start 08/31/16 at 02:00 Glucose (Glutose) 22.5 gm Q15M PRN PO DECREASED GLUCOSE; Start 08/31/16 at 02:00 Dextrose (D50w Syringe) 25 ml Q15M PRN IV DECREASED GLUCOSE Last administered on 09/25/16 12:29; Admin Dose 25 ML; Start 08/31/16 at 02:00 Dextrose (D50w Syringe) 50 ml Q15M PRN IV DECREASED GLUCOSE; Start 08/31/16 at 02:00 Glucagon (Glucagen) 1 mg Q15M PRN IM DECREASED GLUCOSE; Start 08/31/16 at 02:00 Glucose (Glutose) 15 gm Q15M PRN BUCCAL DECREASED GLUCOSE; Start 08/31/16 at 02: 00 Fluticasone Propionate (Flonase 0.05% Nasal) 2 spray DAILY NASAL Last administered on 10/07/16 09:02; Admin Dose 2 SPRAY; Start 08/31/16 at 09:00 Ondansetron HCl (Zofran Inj) 4 mg Q6H PRN IV NAUSEA AND/OR VOMITING Last administered on 10/02/16 09:20; Admin Dose 4 MG; Start 09/01/16 at 11:30 Diphenhydramine HCl (Benadryl) 25 mg Q6H PRN PO ITCHING Last administered on 00:18; Admin Dose 25 MG; Start 09/01/16 at 11:30 Guaifenesin/ Dextromethorphan (Robitussin Dm Liquid Cup) 10 ml Q4H PRN PO COUGH Last administered on 10/01/16 20:24; Admin Dose 10 ML; Start 09/02/16 at 14:00 Allopurinol (Zyloprim) 300 mg DAILY PO Last administered on 10/07/16 09:02; Admin Dose 300 MG; Start 09/04/16 at 16:30 IV Flush (NS 10 ml) 10 ml PRN PRN IV IV PROTOCOL; Start 09/05/16 at 12:30 Bisacodyl (Dulcolax Supp) 10 mg DAILY PRN [place] CONSTIPATION; Start 09/08/16 at 12 :00 Magnesium Hydroxide (Milk Of Mag) 30 ml DAILY PRN PO CONSTIPATION Last administered on 09/09/16 06:25; Admin Dose 30 ML; Start 09/08/16 at 12:00 Polyethylene Glycol (Miralax) 17 gm DAILY PO Last administered on 10/06/16 08: 52; Admin Dose 17 GM; Start 09/08/16 at 12:00 Docusate Sodium (Colace) 100 mg BID PO Last administered on 10/06/16 20:53; Admin Dose 100 MG; Start 09/08/16 at 21:00 Phenol (Cepastat Lozenge) 1 lozenge Q1H PRN MT SORE THROAT Last administered on 09/17/16 20:16; Admin Dose 1 LOZENGE; Start 09/08/16 at 12:00 Amlodipine Besylate (Norvasc) 5 mg QHS PO Last administered on 10/06/16 21:19 ; Admin Dose 5 MG; Start 09/11/16 at 21:00 Miscellaneous Medication (Bax Susp) 30 ml QID PO Last administered on 09:09; Admin Dose 30 ML; Start 09/13/16 at 13:00 Nystatin (Nystatin Susp) 5 ml QID PO Last administered on 10/07/16 09:02; Admin Dose 5 ML; Start 09/14/16 at 17:00 Insulin Glargine (Lantus) 7.5 unit QHS SC Last administered on 10/06/16 21:25 ; Admin Dose 7.5 UNIT; Start 09/18/16 at 21:00 Diagnostic Test (Pha) (Accucheck) 1 ea 02 XX Last administered on 09/25/16 01: 44; Admin Dose 1 EA; Start 09/23/16 at 02:00 Acetaminophen 650 mg 650 mg Q6H PRN [place] PAIN OR TEMP ABOVE 38C Last administered on 09/23/16 18:24; Admin Dose 650 MG; Start 09/23/16 at 18:00 Dextrose/Sodium Chloride (D5-NS) 1,000 ml @ 50 mls/hr Q20H IV Last administered on 10/05/16 09:12; Admin Dose 50 MLS/HR; Start 09/25/16 at 13:00 Al Hydrox/Mg Hydrox/Simethicone (Mag-Al Plus) 30 ml Q4 PO Last administered on 10/06/16 21:18; Admin Dose 30 ML; Start 09/25/16 at 15:00 Pantoprazole (Protonix Iv) 40 mg BID@06,18 IV Last administered on 10/07/16 09 :02; Admin Dose 40 MG; Start 09/26/16 at 18:00 Levofloxacin 750 mg 750 mg DAILY@09 PO Last administered on 10/06/16 13:55; Admin Dose 750 MG; Start 09/28/16 at 09:00 Azacitidine 120 mg/Sodium Chloride 100 ml @ 400 mls/hr DAILY@18 IVPB Last administered on 10/06/16 18:01; Admin Dose 400 MLS/HR; Start 10/01/16 at 18:00; Stop 10/07/16 at 18:14 Ondansetron HCl 16 mg/Sodium Chloride 58 ml @ 252 mls/hr DAILY@18 IV Last administered on 10/06/16 18:00; Admin Dose 252 MLS/HR; Start 10/01/16 at 18:00; Stop 10/07/16 at 18:14 Sodium Chloride (NS) 1,000 ml @ 50 mls/hr Q20H IV Last administered on 04:30; Admin Dose 50 MLS/HR; Start 10/01/16 at 17:30 MISHA FOREMAN M.D. Oct 07, 2016 11:32
[2016-10-07] MEDS: LEVOFLOXACIN 750 MG TABLET PO SCH (12:04)
--- NOTE | 2016-10-07 12:19 | PN ---
Date/Time of Note Date/Time of Note DATE: 10/07/16 TIME: 12:09 Assessment/Plan VTE Prophylaxis VTE Prophylaxis Intervention: SCD's Lines/Catheters IV Catheter Type (from Nrs): PICC Line Central line still needed: Yes (for chemo ) Urinary Cath still in place: No Assessment/Plan Assessment/Plan 71 yo male with: 1. 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 S/p multiple blood product transfusion including pRBCs and platelets Neutropenia resolved for now. Plts and Hb trending down, transfusion today No further acute bleeding x1 week Per Hematology trial of Vidaza for 2nd chemo round started 10/01 x 7 days course, patient too weak for re-induction. 2. UGIB/Hematemesis: s/p EGD with hemoclipping followed by mesenteric angiogram yesterday with no source of acute bleeding found Hb has been stable since pRBC transfusion last week, platelets being kept >10K with transfusions Continue Protonix IV bid for now Tolerating mostly soft diet due to some odynophagia/sore throat. Monitoring h/h closely 3. Diabetes mellitus, with associated neuropathy manifest by numbness in both feet. BG better controlled. BG stable, once better po intake, increase dosing of Lantus back up to 15 units qhs if needed and continue SSI. Zofran as needed for Nausea 4. Chronic benign positional vertigo. Continue Meclizine PRN 5. Gastroesophageal reflux disease/Gastric Ulcer s/p episode of bleeding. On Protonix IV BID per Dr John 6. Hypertension: on Norvasc. 7. Oral mucosa irritation, cold sore and odynophagia: Continue Abreva and mouth wash, Nystatin. improving 8. Klebsiella Pneumoniae UTI: on Levaquin now based on sensitivities, d/c today after dose Prophylaxis. Sequential compression devices to lower extremity for DVT prevention, PPI for GI ppx DISPOSITION: S/p induction chemo, following counts, Bone Marrow bx 09/19, with poor risk AML and still with residual disease. 2nd round of chemo started 10/01, and Hematology following. Subjective 24 Hr Interval Summary Free Text/Dictation Patient in good spirits and getting last day of chemo today Also to get blood transfusion today no complaints Exam/Review of Systems Vital Signs Vitals Vital Signs Date Time Temp Pulse Resp B/P Pulse Ox O2 Delivery O2 Flow Rate FiO2 10/07/16 08:12 98.0 89 19 139/63 99 10/05/16 18:45 Room Air Intake and Output 10/06/16 10/06/16 10/07/16 15:00 23:00 07:00 Intake Total 838 ml 925 ml Balance 838 ml 925 ml Exam Constitutional: alert, oriented, other (stonger and more comfortable ) Respiratory: clear to auscultation, normal air movement Cardiovascular: nl pulses, regular rate and rhythm Gastrointestinal: non-tender, soft Musculoskeletal: nl extremities to inspection, nl gait and stance Extremities: normal pulses, other (no edema, clubbing ot cyanosis) Neurological: PUNCH BOX TENDER II-XII intact, nl mental status, nl speech, other (getting stronger ) Results Result Diagram: 10/07/16 0440 10/07/16 0440 Results 24 hrs Laboratory Tests Test 10/06/16 17:28 10/06/16 20:51 10/07/16 04:40 10/07/16 09:00 Bedside Glucose 146 153 90 Alanine Aminotransferase (ALT/SGPT) 17 Albumin 3.0 L Albumin/Globulin Ratio 0.71 Alkaline Phosphatase 88 Anion Gap 12 Aspartate Amino Transf (AST/SGOT) 13 L Band Neutrophils % 1.0 Basophils # Basophils % Blast Cells % 4.0 H Blastocytes # 0.1 Blood Morphology Comment Blood Urea Nitrogen 8 Calcium Level 8.8 Carbon Dioxide Level 27 Chloride Level 104 Creatinine 0.75 Direct Bilirubin 0.00 Eosinophils # 0.0 Eosinophils % 1.0 Globulin 4.20 H Glucose Level 75 # Hematocrit 21.7 L Hemoglobin 7.5 L Indirect Bilirubin 0.3 Lymphocytes # 2.2 Lymphocytes % 65.0 H Mean Corpuscular Hemoglobin 29.3 Mean Corpuscular Hemoglobin Concent 34.5 Mean Corpuscular Volume 84.8 Mean Platelet Volume 8.9 Monocytes # 0.9 Monocytes % 25.0 H Neutrophils # 0.1 L Neutrophils % 4.0 L Nucleated Red Blood Cells # Nucleated Red Blood Cells % Platelet Count 18 #*L Platelet Estimate PLT APPEAR DECREASED Potassium Level 3.8 Red Blood Count 2.55 L Red Cell Distribution Width 16.2 H Sodium Level 139 Total Bilirubin 0.3 Total Protein 7.2 White Blood Count 3.4 L Medications Medications Current Medications Miscellaneous Information 1 ea NOTE XX ; Start 08/31/16 at 02:00 Glucose (Glutose) 15 gm Q15M PRN PO DECREASED GLUCOSE; Start 08/31/16 at 02:00 Glucose (Glutose) 22.5 gm Q15M PRN PO DECREASED GLUCOSE; Start 08/31/16 at 02:00 Dextrose (D50w Syringe) 25 ml Q15M PRN IV DECREASED GLUCOSE Last administered on 09/25/16 12:29; Admin Dose 25 ML; Start 08/31/16 at 02:00 Dextrose (D50w Syringe) 50 ml Q15M PRN IV DECREASED GLUCOSE; Start 08/31/16 at 02:00 Glucagon (Glucagen) 1 mg Q15M PRN IM DECREASED GLUCOSE; Start 08/31/16 at 02:00 Glucose (Glutose) 15 gm Q15M PRN BUCCAL DECREASED GLUCOSE; Start 08/31/16 at 02: 00 Fluticasone Propionate (Flonase 0.05% Nasal) 2 spray DAILY NASAL Last administered on 10/07/16 09:02; Admin Dose 2 SPRAY; Start 08/31/16 at 09:00 Ondansetron HCl (Zofran Inj) 4 mg Q6H PRN IV NAUSEA AND/OR VOMITING Last administered on 10/02/16 09:20; Admin Dose 4 MG; Start 09/01/16 at 11:30 Diphenhydramine HCl (Benadryl) 25 mg Q6H PRN PO ITCHING Last administered on 00:18; Admin Dose 25 MG; Start 09/01/16 at 11:30 Guaifenesin/ Dextromethorphan (Robitussin Dm Liquid Cup) 10 ml Q4H PRN PO COUGH Last administered on 10/01/16 20:24; Admin Dose 10 ML; Start 09/02/16 at 14:00 Allopurinol (Zyloprim) 300 mg DAILY PO Last administered on 10/07/16 09:02; Admin Dose 300 MG; Start 09/04/16 at 16:30 IV Flush (NS 10 ml) 10 ml PRN PRN IV IV PROTOCOL; Start 09/05/16 at 12:30 Bisacodyl (Dulcolax Supp) 10 mg DAILY PRN [place] CONSTIPATION; Start 09/08/16 at 12 :00 Magnesium Hydroxide (Milk Of Mag) 30 ml DAILY PRN [place] CONSTIPATION Last administered on 09/09/16 06:25; Admin Dose 30 ML; Start 09/08/16 at 12:00 Polyethylene Glycol (Miralax) 17 gm DAILY PO Last administered on 10/06/16 08: 52; Admin Dose 17 GM; Start 09/08/16 at 12:00 Docusate Sodium (Colace) 100 mg BID PO Last administered on 10/06/16 20:53; Admin Dose 100 MG; Start 09/08/16 at 21:00 Phenol (Cepastat Lozenge) 1 lozenge Q1H PRN [place] SORE THROAT Last administered on 09/17/16 20:16; Admin Dose 1 LOZENGE; Start 09/08/16 at 12:00 Amlodipine Besylate (Norvasc) 5 mg QHS PO Last administered on 10/06/16 21:19 ; Admin Dose 5 MG; Start 09/11/16 at 21:00 Miscellaneous Medication (Bax Susp) 30 ml QID PO Last administered on 09:09; Admin Dose 30 ML; Start 09/13/16 at 13:00 Nystatin (Nystatin Susp) 5 ml QID PO Last administered on 10/07/16 12:04; Admin Dose 5 ML; Start 09/14/16 at 17:00 Insulin Glargine (Lantus) 7.5 unit QHS SC Last administered on 10/06/16 21:25 ; Admin Dose 7.5 UNIT; Start 09/18/16 at 21:00 Diagnostic Test (Pha) (Accucheck) 1 ea 02 XX Last administered on 09/25/16 01: 44; Admin Dose 1 EA; Start 09/23/16 at 02:00 Acetaminophen 650 mg 650 mg Q6H PRN [place] PAIN OR TEMP ABOVE 38C Last administered on 09/23/16 18:24; Admin Dose 650 MG; Start 09/23/16 at 18:00 Dextrose/Sodium Chloride (D5-NS) 1,000 ml @ 50 mls/hr Q20H IV Last administered on 10/05/16 09:12; Admin Dose 50 MLS/HR; Start 09/25/16 at 13:00 Al Hydrox/Mg Hydrox/Simethicone (Mag-Al Plus) 30 ml Q4 PO Last administered on 10/06/16 21:18; Admin Dose 30 ML; Start 09/25/16 at 15:00 Pantoprazole (Protonix Iv) 40 mg BID@06,18 IV Last administered on 10/07/16 09 :02; Admin Dose 40 MG; Start 09/26/16 at 18:00 Levofloxacin 750 mg 750 mg DAILY@09 PO Last administered on 10/07/16 12:04; Admin Dose 750 MG; Start 09/28/16 at 09:00 Azacitidine 120 mg/Sodium Chloride 100 ml @ 400 mls/hr DAILY@18 IVPB Last administered on 10/06/16 18:01; Admin Dose 400 MLS/HR; Start 10/01/16 at 18:00; Stop 10/07/16 at 18:14 Ondansetron HCl 16 mg/Sodium Chloride 58 ml @ 252 mls/hr DAILY@18 IV Last administered on 10/06/16 18:00; Admin Dose 252 MLS/HR; Start 10/01/16 at 18:00; Stop 10/07/16 at 18:14 Sodium Chloride (NS) 1,000 ml @ 50 mls/hr Q20H IV Last administered on 04:30; Admin Dose 50 MLS/HR; Start 10/01/16 at 17:30 TAM ROSE Oct 07, 2016 12:19
[2016-10-07] MEDS: ONDANSETRON INJ 16 MG in SOD CHLORIDE 0.9% 50 ML IV SCH (17:37)
[2016-10-07] MEDS: AZACITIDINE IVPB SCH (18:16)
[2016-10-07] MEDS: SOD CHLORIDE 0.9% IVPB SCH (18:16)
[2016-10-07] MEDS: AMLODIPINE 5 MG TAB PO SCH (21:19)
[2016-10-07] MEDS: INSULIN GLARGINE [LANtus] 3 ML PEN SC SCH (21:31)
[2016-10-08] VITALS (7 sets, daily range): BP systolic 112–145; BP diastolic 64–99; PULSE 77–93; RESP 19–20
[2016-10-08] MEDS: AL HYDROX/MG HYDROX/SIMETH 30 ML CUP PO SCH ×6 (01:00→21:13)
[2016-10-08] MEDS: DEXTROSE 5%-0.9% NACL 1,000 ML IV SCH ×2 (01:00→21:00)
[2016-10-08] MEDS: ACCUCHECK XX SCH (01:07)
[2016-10-08 05:55] LABS: PHOSPHORUS 2.5 mg/dl (2.5-4.9)
[2016-10-08 05:58] LABS: HEMATOCRIT 28.2 % (42.0-52.0); HEMOGLOBIN 9.7 g/dl (14.0-18.0); MEAN CORPUSCULAR HEMOGLOBIN 29.3 pg (29.0-33.0); MEAN CORPUSCULAR HGB CONC 34.5 g/dl (32.0-37.0); MEAN CORPUSCULAR VOLUME 84.7 fl (82.0-101.0); MEAN PLATELET VOLUME 9.3 fl (7.4-10.4); RED BLOOD COUNT 3.33 10^6/ul (4.70-6.10); RED CELL DISTRIBUTION WIDTH 14.9 % (11.5-14.5); UNCORRECTED WBC 3.2 10^3/ul (4.8-10.8); WHITE BLOOD COUNT 3.2 10^3/ul (4.8-10.8)
[2016-10-08 06:01] LABS: ALBUMIN 3.1 g/dl (3.3-4.9); POTASSIUM 3.8 mmol/L (3.5-5.1)
[2016-10-08 06:03] LABS: CREATININE 0.7 mg/dl (0.61-1.24)
[2016-10-08 06:04] LABS: ALBUMIN/GLOBULIN RATIO 0.7; CALCIUM 8.8 mg/dl (8.4-10.2); TOTAL PROTEIN 7.5 g/dl (6.1-8.1)
[2016-10-08 06:21] LABS: CONDITION 1; LH ANALYZER COMMENTS 1; SUSPECT 1
[2016-10-08 06:24] LABS: PLATELET COUNT 11 10^3/UL (140-440)
[2016-10-08] MEDS: PANTOPRAZOLE 40 MG INJ IV SCH ×2 (06:54→17:51)
[2016-10-08] MEDS: SOD CHLORIDE 0.9% 1,000 ML IV SCH (07:00)
[2016-10-08] MEDS: INSULIN ASPART [NOVOLOG] 3 ML PEN SC SCH ×4 (07:50→21:16)
[2016-10-08] MEDS: POLYETHYLENE GLYCOL 17 GM PACKET PO SCH (08:47)
[2016-10-08] MEDS: ALLOPURINOL 300 MG TAB PO SCH (08:47)
[2016-10-08] MEDS: SUCRALFATE 1 GM TAB PO SCH ×4 (08:47→21:13)
[2016-10-08] MEDS: DOCUSATE SODIUM 100 MG CAP PO SCH ×2 (08:47→21:13)
[2016-10-08] MEDS: NYSTATIN SUSP 5 ML CUP PO SCH ×4 (08:47→21:13)
[2016-10-08] MEDS: MYLANTA PO SCH ×4 (08:48→21:13)
[2016-10-08] MEDS: FLUTICASONE 0.05% 16 GM NAS SPRAY NASAL SCH (08:48)
[2016-10-08] MEDS: DIPHENHYD PO SCH ×4 (08:48→21:13)
[2016-10-08] MEDS: LIDO PO SCH ×4 (08:48→21:13)
[2016-10-08] MEDS: LEVOFLOXACIN 750 MG TABLET PO SCH (08:51)
[2016-10-08 09:20] LABS: ANISOCYTOSIS 1+; PLATELET ESTIMATE PLT APPEAR DECREASED
[2016-10-08 09:21] LABS: BASOPHIL # 0.1 10^3/ul (0.0-0.1); EOSINOPHILS # 0.1 10^3/ul (0.0-0.5); LYMPHOCYTES # 1.1 10^3/ul (0.8-2.9); MONOCYTE # 1.3 10^3/ul (0.3-0.9); NEUTROPHIL # 0.5 10^3/ul (1.6-7.5)
--- NOTE | 2016-10-08 10:35 | PN ---
Date/Time of Note Date/Time of Note DATE: 10/08/16 TIME: 10:30 Assessment/Plan VTE Prophylaxis VTE Prophylaxis Intervention: ambulation, SCD's Lines/Catheters IV Catheter Type (from Nrsg): PICC Line Central line still needed: Yes (for IV access ) Urinary Cath still in place: No Assessment/Plan Assessment/Plan 71 yo male with: 1. 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 S/p multiple blood product transfusion including pRBCs and platelets Neutropenia resolved for now. Plts and Hb trending down, s/p pRBC yesterday and possibly plts today or tomorrow. No further acute bleeding x1 week S/p Vidaza course. D/c plan per Hematology Patient too weak for re-induction. 2. UGIB/Hematemesis: s/p EGD with hemoclipping followed by mesenteric angiogram yesterday with no source of acute bleeding found Hb has been stable since pRBC transfusion last week, platelets being kept >10K with transfusions Continue Protonix IV bid for now Tolerating mostly soft diet due to some odynophagia/sore throat. Monitoring CBC. 3. Diabetes mellitus, with associated neuropathy manifest by numbness in both feet. BG better controlled. BG stable, once better po intake, increase dosing of Lantus back up to 15 units qhs if needed and continue SSI. Zofran as needed for Nausea 4. Chronic benign positional vertigo. Continue Meclizine PRN 5. Gastroesophageal reflux disease/Gastric Ulcer s/p episode of bleeding. On Protonix IV BID per Dr John 6. Hypertension: on Norvasc. 7. Oral mucosa irritation, cold sore and odynophagia: Continue Abreva and mouth wash, Nystatin. improving 8. Klebsiella Pneumoniae UTI: D/c on Levaquin. Prophylaxis. Sequential compression devices to lower extremity for DVT prevention, PPI for GI ppx DISPOSITION: S/p induction chemo, following counts, Bone Marrow bx 09/19, with poor risk AML and still with residual disease. 2nd round of chemo started 10/01, and Hematology following. Exam/Review of Systems Vital Signs Vitals Vital Signs Date Time Temp Pulse Resp B/P Pulse Ox O2 Delivery O2 Flow Rate FiO2 10/08/16 07:52 98.0 89 20 128/69 96 10/05/16 18:45 Room Air Intake and Output 10/07/16 10/07/16 10/08/16 15:00 23:00 07:00 Intake Total 1618 ml 900 ml Output Total 1000 ml 800 ml Balance 618 ml 100 ml Results Result Diagram: 10/08/16 0455 10/08/16 0455 Results 24 hrs Laboratory Tests Test 10/07/16 12:38 10/07/16 17:49 10/07/16 21:28 10/08/16 04:55 Bedside Glucose 185 201 137 Alanine Aminotransferase (ALT/SGPT) 13 Albumin 3.1 L Albumin/Globulin Ratio 0.70 Alkaline Phosphatase 84 Anion Gap 10 Anisocytosis 1+ Aspartate Amino Transf (AST/SGOT) 15 Basophils # 0.1 Basophils % 2.0 Blast Cells % 4.0 H Blastocytes # 0.1 Blood Morphology Comment Blood Urea Nitrogen 9 Calcium Level 8.8 Carbon Dioxide Level 28 Chloride Level 104 Creatinine 0.70 Differential Comment MANUAL DIFF Direct Bilirubin 0.00 Eosinophils # 0.1 Eosinophils % 3.0 Globulin 4.40 H Glucose Level 74 Hematocrit 28.2 #L Hemoglobin 9.7 #L Indirect Bilirubin 1.0 Lymphocytes # 1.1 Lymphocytes % 33.0 Magnesium Level 2.0 Mean Corpuscular Hemoglobin 29.3 Mean Corpuscular Hemoglobin Concent 34.5 Mean Corpuscular Volume 84.7 Mean Platelet Volume 9.3 Monocytes # 1.3 H Monocytes % 42.0 H Neutrophils # 0.5 L Neutrophils % 16.0 L Nucleated Red Blood Cells # Nucleated Red Blood Cells % Phosphorus Level 2.5 Platelet Count 11 #*L Platelet Estimate PLT APPEAR DECREASED Potassium Level 3.8 Red Blood Count 3.33 #L Red Cell Distribution Width 14.9 H Sodium Level 138 Total Bilirubin 1.0 Total Protein 7.5 White Blood Count 3.2 L Test 10/08/16 08:45 Bedside Glucose 100 Medications Medications Current Medications Miscellaneous Information 1 ea NOTE XX ; Start 08/31/16 at 02:00 Glucose (Glutose) 15 gm Q15M PRN PO DECREASED GLUCOSE; Start 08/31/16 at 02:00 Glucose (Glutose) 22.5 gm Q15M PRN PO DECREASED GLUCOSE; Start 08/31/16 at 02:00 Dextrose (D50w Syringe) 25 ml Q15M PRN IV DECREASED GLUCOSE Last administered on 09/25/16 12:29; Admin Dose 25 ML; Start 08/31/16 at 02:00 Dextrose (D50w Syringe) 50 ml Q15M PRN IV DECREASED GLUCOSE; Start 08/31/16 at 02:00 Glucagon (Glucagen) 1 mg Q15M PRN IM DECREASED GLUCOSE; Start 08/31/16 at 02:00 Glucose (Glutose) 15 gm Q15M PRN BUCCAL DECREASED GLUCOSE; Start 08/31/16 at 02: 00 Fluticasone Propionate (Flonase 0.05% Nasal) 2 spray DAILY NASAL Last administered on 10/08/16 08:48; Admin Dose 2 SPRAY; Start 08/31/16 at 09:00 Ondansetron HCl (Zofran Inj) 4 mg Q6H PRN IV NAUSEA AND/OR VOMITING Last administered on 10/02/16 09:20; Admin Dose 4 MG; Start 09/01/16 at 11:30 Diphenhydramine HCl (Benadryl) 25 mg Q6H PRN PO ITCHING Last administered on 23:38; Admin Dose 25 MG; Start 09/01/16 at 11:30 Guaifenesin/ Dextromethorphan (Robitussin Dm Liquid Cup) 10 ml Q4H PRN PO COUGH Last administered on 10/01/16 20:24; Admin Dose 10 ML; Start 09/02/16 at 14:00 Allopurinol (Zyloprim) 300 mg DAILY PO Last administered on 10/08/16 08:47; Admin Dose 300 MG; Start 09/04/16 at 16:30 IV Flush (NS 10 ml) 10 ml PRN PRN IV IV PROTOCOL; Start 09/05/16 at 12:30 Bisacodyl (Dulcolax Supp) 10 mg DAILY PRN [place] CONSTIPATION; Start 09/08/16 at 12 :00 Magnesium Hydroxide (Milk Of Mag) 30 ml DAILY PRN PO CONSTIPATION Last administered on 09/09/16 06:25; Admin Dose 30 ML; Start 09/08/16 at 12:00 Polyethylene Glycol (Miralax) 17 gm DAILY PO Last administered on 10/06/16 08: 52; Admin Dose 17 GM; Start 09/08/16 at 12:00 Docusate Sodium (Colace) 100 mg BID PO Last administered on 10/06/16 20:53; Admin Dose 100 MG; Start 09/08/16 at 21:00 Phenol (Cepastat Lozenge) 1 lozenge Q1H PRN [place] SORE THROAT Last administered on 09/17/16 20:16; Admin Dose 1 LOZENGE; Start 09/08/16 at 12:00 Amlodipine Besylate (Norvasc) 5 mg QHS PO Last administered on 10/07/16 21:19 ; Admin Dose 5 MG; Start 09/11/16 at 21:00 Miscellaneous Medication (Bax Susp) 30 ml QID PO Last administered on 09:09; Admin Dose 30 ML; Start 09/13/16 at 13:00 Nystatin (Nystatin Susp) 5 ml QID PO Last administered on 10/08/16 08:47; Admin Dose 5 ML; Start 09/14/16 at 17:00 Insulin Glargine (Lantus) 7.5 unit QHS SC Last administered on 10/07/16 21:31 ; Admin Dose 7.5 UNIT; Start 09/18/16 at 21:00 Diagnostic Test (Pha) (Accucheck) 1 ea 02 XX Last administered on 09/25/16 01: 44; Admin Dose 1 EA; Start 09/23/16 at 02:00 Acetaminophen 650 mg 650 mg Q6H PRN [place] PAIN OR TEMP ABOVE 38C Last administered on 09/23/16 18:24; Admin Dose 650 MG; Start 09/23/16 at 18:00 Dextrose/Sodium Chloride (D5-NS) 1,000 ml @ 50 mls/hr Q20H IV Last administered on 10/05/16 09:12; Admin Dose 50 MLS/HR; Start 09/25/16 at 13:00 Al Hydrox/Mg Hydrox/Simethicone (Mag-Al Plus) 30 ml Q4 PO Last administered on 10/08/16 08:51; Admin Dose 30 ML; Start 09/25/16 at 15:00 Pantoprazole (Protonix Iv) 40 mg BID@06,18 IV Last administered on 10/08/16 06 :54; Admin Dose 40 MG; Start 09/26/16 at 18:00 Levofloxacin 750 mg 750 mg DAILY@09 PO Last administered on 10/08/16 08:51; Admin Dose 750 MG; Start 09/28/16 at 09:00 Sodium Chloride (NS) 1,000 ml @ 50 mls/hr Q20H IV Last administered on 07:00; Admin Dose 50 MLS/HR; Start 10/01/16 at 17:30 TAM ROSE Oct 08, 2016 10:35
--- NOTE | 2016-10-08 13:30 | CONS ---
Date/Time of Note Date/Time of Note DATE: 10/08/16 TIME: 13:29 Assessment/Plan Assessment/Plan Chief Complaint/Hosp Course 71 yo with CMML who is currently off therapy admitted for symptomatic anemia and thrombocytopenia. 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 Pt has completed 7+3 and tolerated chemotherapy well thus far. Preliminary report of Day 14 bone marrow still shows residual disease. Given patient is too weak for re-induction chemotherapy will proceed with Vidaza, hypomethylating agent when patient counts recover. 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 Patient started on Vidaza -10/07/16. - Plt are currently >20K. Thrombocytopenia may be partly due to prior induction chemo and partly due to residual disease. Goal of Vidaza is palliative, patient would not be a good transplant or clinical trial candidate given his performance status and poor tolerance of induction chemotherapy requiring ICU admission. - Given plt 11, will give 1 unit platelets today given high risk of bleeding. - Continue allopurinol - Patient underwent EGD on 09/23/16 that demonstrated gastric ulcer covered by clot s/p hemoclipping, now s/p mesenteric angiogram and embolization of the left gastric artery. Patient was in the ICU, now back on [facility] floor. Hematemesis resolved. - Patient will need to stay inpatient to await count recovery and monitor for infection, transfusions, etc. Plt goal > 50K if bleeding, > 20K if febrile, otherwise >10K. - Discussed with patient's daughter Tawny ([phone]) who was updated on situation and plan Problems: Consultation Date/Type/Reason Admit Date/Time Aug 31, 2016 at 00:38 Initial Consult Date 09/02/16 Type of Consultation: Hematology/Oncology Referring Provider: TAM ROSE 24 HR Interval Summary Free Text/Dictation Patient doing well, no complaints, no fevers, no bleeding. States energy a little better. Exam/Review of Systems Vital Signs Vitals Vital Signs Date Time Temp Pulse Resp B/P Pulse Ox O2 Delivery O2 Flow Rate FiO2 10/08/16 07:52 98.0 89 20 128/69 96 10/05/16 18:45 Room Air Intake and Output 10/07/16 10/07/16 10/08/16 15:00 23:00 07:00 Intake Total 1618 ml 900 ml Output Total 1000 ml 800 ml Balance 618 ml 100 ml Exam Constitutional: alert, oriented Psych: no complaints Head: normocephalic Eyes: nl conjunctiva ENMT: nl external ears & nose, nl lips & teeth Neck: non-tender, supple Respiratory: clear to auscultation, normal air movement Cardiovascular: regular rate and rhythm Gastrointestinal: soft Musculoskeletal: nl extremities to inspection, nl gait and stance Results Result Diagram: 10/08/16 0455 10/08/16 0455 Results 24 hrs Laboratory Tests Test 10/07/16 17:49 10/07/16 21:28 10/08/16 04:55 10/08/16 08:45 Bedside Glucose 201 137 100 Alanine Aminotransferase (ALT/SGPT) 13 Albumin 3.1 L Albumin/Globulin Ratio 0.70 Alkaline Phosphatase 84 Anion Gap 10 Anisocytosis 1+ Aspartate Amino Transf (AST/SGOT) 15 Basophils # 0.1 Basophils % 2.0 Blast Cells % 4.0 H Blastocytes # 0.1 Blood Morphology Comment Blood Urea Nitrogen 9 Calcium Level 8.8 Carbon Dioxide Level 28 Chloride Level 104 Creatinine 0.70 Differential Comment MANUAL DIFF Direct Bilirubin 0.00 Eosinophils # 0.1 Eosinophils % 3.0 Globulin 4.40 H Glucose Level 74 Hematocrit 28.2 #L Hemoglobin 9.7 #L Indirect Bilirubin 1.0 Lymphocytes # 1.1 Lymphocytes % 33.0 Magnesium Level 2.0 Mean Corpuscular Hemoglobin 29.3 Mean Corpuscular Hemoglobin Concent 34.5 Mean Corpuscular Volume 84.7 Mean Platelet Volume 9.3 Monocytes # 1.3 H Monocytes % 42.0 H Neutrophils # 0.5 L Neutrophils % 16.0 L Nucleated Red Blood Cells # Nucleated Red Blood Cells % Phosphorus Level 2.5 Platelet Count 11 #*L Platelet Estimate PLT APPEAR DECREASED Potassium Level 3.8 Red Blood Count 3.33 #L Red Cell Distribution Width 14.9 H Sodium Level 138 Total Bilirubin 1.0 Total Protein 7.5 White Blood Count 3.2 L Test 10/08/16 12:50 Bedside Glucose 212 Medications Medications Current Medications Miscellaneous Information 1 ea NOTE XX ; Start 08/31/16 at 02:00 Glucose (Glutose) 15 gm Q15M PRN PO DECREASED GLUCOSE; Start 08/31/16 at 02:00 Glucose (Glutose) 22.5 gm Q15M PRN PO DECREASED GLUCOSE; Start 08/31/16 at 02:00 Dextrose (D50w Syringe) 25 ml Q15M PRN IV DECREASED GLUCOSE Last administered on 09/25/16 12:29; Admin Dose 25 ML; Start 08/31/16 at 02:00 Dextrose (D50w Syringe) 50 ml Q15M PRN IV DECREASED GLUCOSE; Start 08/31/16 at 02:00 Glucagon (Glucagen) 1 mg Q15M PRN IM DECREASED GLUCOSE; Start 08/31/16 at 02:00 Glucose (Glutose) 15 gm Q15M PRN BUCCAL DECREASED GLUCOSE; Start 08/31/16 at 02: 00 Fluticasone Propionate (Flonase 0.05% Nasal) 2 spray DAILY NASAL Last administered on 10/08/16 08:48; Admin Dose 2 SPRAY; Start 08/31/16 at 09:00 Ondansetron HCl (Zofran Inj) 4 mg Q6H PRN IV NAUSEA AND/OR VOMITING Last administered on 10/02/16 09:20; Admin Dose 4 MG; Start 09/01/16 at 11:30 Diphenhydramine HCl (Benadryl) 25 mg Q6H PRN PO ITCHING Last administered on 23:38; Admin Dose 25 MG; Start 09/01/16 at 11:30 Guaifenesin/ Dextromethorphan (Robitussin Dm Liquid Cup) 10 ml Q4H PRN PO COUGH Last administered on 10/01/16 20:24; Admin Dose 10 ML; Start 09/02/16 at 14:00 Allopurinol (Zyloprim) 300 mg DAILY PO Last administered on 10/08/16 08:47; Admin Dose 300 MG; Start 09/04/16 at 16:30 IV Flush (NS 10 ml) 10 ml PRN PRN IV IV PROTOCOL; Start 09/05/16 at 12:30 Bisacodyl (Dulcolax Supp) 10 mg DAILY PRN [place] CONSTIPATION; Start 09/08/16 at 12 :00 Magnesium Hydroxide (Milk Of Mag) 30 ml DAILY PRN PO CONSTIPATION Last administered on 09/09/16 06:25; Admin Dose 30 ML; Start 09/08/16 at 12:00 Polyethylene Glycol (Miralax) 17 gm DAILY PO Last administered on 10/06/16 08: 52; Admin Dose 17 GM; Start 09/08/16 at 12:00 Docusate Sodium (Colace) 100 mg BID PO Last administered on 10/06/16 20:53; Admin Dose 100 MG; Start 09/08/16 at 21:00 Phenol (Cepastat Lozenge) 1 lozenge Q1H PRN [place] SORE THROAT Last administered on 09/17/16 20:16; Admin Dose 1 LOZENGE; Start 09/08/16 at 12:00 Amlodipine Besylate (Norvasc) 5 mg QHS PO Last administered on 10/07/16 21:19 ; Admin Dose 5 MG; Start 09/11/16 at 21:00 Miscellaneous Medication (Bax Susp) 30 ml QID PO Last administered on 09:09; Admin Dose 30 ML; Start 09/13/16 at 13:00 Nystatin (Nystatin Susp) 5 ml QID PO Last administered on 10/08/16 12:51; Admin Dose 5 ML; Start 09/14/16 at 17:00 Insulin Glargine (Lantus) 7.5 unit QHS SC Last administered on 10/07/16 21:31 ; Admin Dose 7.5 UNIT; Start 09/18/16 at 21:00 Diagnostic Test (Pha) (Accucheck) 1 ea 02 XX Last administered on 09/25/16 01: 44; Admin Dose 1 EA; Start 09/23/16 at 02:00 Acetaminophen 650 mg 650 mg Q6H PRN [place] PAIN OR TEMP ABOVE 38C Last administered on 09/23/16 18:24; Admin Dose 650 MG; Start 09/23/16 at 18:00 Dextrose/Sodium Chloride (D5-NS) 1,000 ml @ 50 mls/hr Q20H IV Last administered on 10/05/16 09:12; Admin Dose 50 MLS/HR; Start 09/25/16 at 13:00 Al Hydrox/Mg Hydrox/Simethicone (Mag-Al Plus) 30 ml Q4 PO Last administered on 10/08/16 12:51; Admin Dose 30 ML; Start 09/25/16 at 15:00 Pantoprazole 40 mg 40 mg BID@06,18 IV Last administered on 10/08/16 06:54; Admin Dose 40 MG; Start 09/26/16 at 18:00 Sodium Chloride (NS) 1,000 ml @ 50 mls/hr Q20H IV Last administered on 07:00; Admin Dose 50 MLS/HR; Start 10/01/16 at 17:30 TOROMA MD Oct 08, 2016 13:30
[2016-10-08] MEDS: AMLODIPINE 5 MG TAB PO SCH (21:14)
[2016-10-08] MEDS: INSULIN GLARGINE [LANtus] 3 ML PEN SC SCH (21:15)
[2016-10-09] MEDS: AL HYDROX/MG HYDROX/SIMETH 30 ML CUP PO SCH ×6 (01:00→20:49)
[2016-10-09] MEDS: ACCUCHECK XX SCH (02:13)
[2016-10-09] MEDS: DIPHENHYDRAMINE 25 MG CAP PO PRN ×2 (02:23→23:07)
[2016-10-09] MEDS: SOD CHLORIDE 0.9% 1,000 ML IV SCH (05:30)
[2016-10-09 06:08] LABS: HEMATOCRIT 27.4 % (42.0-52.0); HEMOGLOBIN 9.5 g/dl (14.0-18.0); MEAN CORPUSCULAR HEMOGLOBIN 29.3 pg (29.0-33.0); MEAN CORPUSCULAR HGB CONC 34.7 g/dl (32.0-37.0); MEAN CORPUSCULAR VOLUME 84.5 fl (82.0-101.0); MEAN PLATELET VOLUME 8.7 fl (7.4-10.4); PLATELET COUNT 46 10^3/UL (140-440); RED BLOOD COUNT 3.24 10^6/ul (4.70-6.10); RED CELL DISTRIBUTION WIDTH 15.2 % (11.5-14.5)
[2016-10-09 06:13] LABS: POTASSIUM 4.2 mmol/L (3.5-5.1)
[2016-10-09 06:16] LABS: CALCIUM 8.7 mg/dl (8.4-10.2); CREATININE 0.66 mg/dl (0.61-1.24)
[2016-10-09] MEDS: PANTOPRAZOLE 40 MG INJ IV SCH ×2 (06:33→17:46)
[2016-10-09] MEDS: SUCRALFATE 1 GM TAB PO SCH ×4 (06:33→20:43)
[2016-10-09 06:37] LABS: CONDITION 1; LH ANALYZER COMMENTS 1; SUSPECT 1
[2016-10-09] MEDS: INSULIN ASPART [NOVOLOG] 3 ML PEN SC SCH ×4 (07:50→20:43)
[2016-10-09 08:05] VITALS: BP 127/75; RESP 20
[2016-10-09] MEDS: MYLANTA PO SCH ×4 (08:42→20:49)
[2016-10-09] MEDS: DOCUSATE SODIUM 100 MG CAP PO SCH ×2 (08:42→20:49)
[2016-10-09] MEDS: FLUTICASONE 0.05% 16 GM NAS SPRAY NASAL SCH (08:42)
[2016-10-09] MEDS: ALLOPURINOL 300 MG TAB PO SCH (08:42)
[2016-10-09] MEDS: DIPHENHYD PO SCH ×4 (08:42→20:49)
[2016-10-09] MEDS: LIDO PO SCH ×4 (08:42→20:49)
[2016-10-09] MEDS: NYSTATIN SUSP 5 ML CUP PO SCH ×4 (08:43→20:49)
[2016-10-09] MEDS: ACETAMINOPHEN 325 MG TAB PO PRN (08:43)
[2016-10-09] MEDS: POLYETHYLENE GLYCOL 17 GM PACKET PO SCH (08:43)
--- NOTE | 2016-10-09 09:11 | CONS ---
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 Pt has completed 7+3 and tolerated chemotherapy well thus far. Preliminary report of Day 14 bone marrow still shows residual disease. Given patient is too weak for re-induction chemotherapy will proceed with Vidaza, hypomethylating agent when patient counts recover. 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 Patient started on Vidaza -10/07/16. - Plt are currently >20K. Thrombocytopenia may be partly due to prior induction chemo and partly due to residual disease. Goal of Vidaza is palliative, patient would not be a good transplant or clinical trial candidate given his performance status and poor tolerance of induction chemotherapy requiring ICU admission. - s/p pRBCs 10/07/16 and platelets 10/08/16 - Continue allopurinol - Patient underwent EGD on 09/23/16 that demonstrated gastric ulcer covered by clot s/p hemoclipping, now s/p mesenteric angiogram and embolization of the left gastric artery. Patient was in the ICU, now back on [facility] floor. Hematemesis resolved. - Patient will need to stay inpatient to await count recovery and monitor for infection, transfusions, etc. Plt goal > 50K if bleeding, > 20K if febrile, otherwise >10K. - Discussed with patient's daughter Tawny ([phone]) who was updated on situation and plan Problems: Consultation Date/Type/Reason Admit Date/Time Aug 31, 2016 at 00:38 Initial Consult Date 09/02/16 Type of Consultation: Hematology/Oncology Referring Provider: TAM ROSE 24 HR Interval Summary Free Text/Dictation The patient is complaining of some mild shoulder/back pain; per nurse thought to have slept in an exacerbating position. Otherwise no fevers, no bleeding, no overnight events. Exam/Review of Systems Vital Signs Vitals Vital Signs Date Time Temp Pulse Resp B/P Pulse Ox O2 Delivery O2 Flow Rate FiO2 10/09/16 08:05 97.9 87 20 127/75 100 10/05/16 18:45 Room Air Intake and Output 10/08/16 10/08/16 10/09/16 15:00 23:00 07:00 Intake Total 450 ml 1580 ml 2280 ml Output Total 1900 ml 2000 ml Balance 450 ml -320 ml 280 ml Exam Constitutional: alert, oriented Psych: no complaints Head: normocephalic Eyes: nl conjunctiva ENMT: nl external ears & nose, nl lips & teeth Neck: non-tender, supple Respiratory: clear to auscultation, normal air movement Cardiovascular: regular rate and rhythm Gastrointestinal: soft Musculoskeletal: nl extremities to inspection, nl gait and stance Results Result Diagram: 10/09/1644410/09/16444 Results 24 hrs Laboratory Tests Test 10/08/16 12:50 10/08/16 17:55 10/08/16 21:12 10/09/16 01:59 Bedside Glucose 212 177 206 132 Test 10/09/16 04:45 10/09/16 08:39 Anion Gap 13 Basophils # Pending Basophils % Pending Blood Morphology Comment Blood Urea Nitrogen 8 Calcium Level 8.7 Carbon Dioxide Level 27 Chloride Level 103 Creatinine 0.66 Eosinophils # Pending Eosinophils % Pending Glucose Level 160 Hematocrit 27.4 L Hemoglobin 9.5 L Lymphocytes # Pending Lymphocytes % Pending Magnesium Level 2.0 Mean Corpuscular Hemoglobin 29.3 Mean Corpuscular Hemoglobin Concent 34.7 Mean Corpuscular Volume 84.5 Mean Platelet Volume 8.7 Monocytes # Pending Monocytes % Pending Neutrophils # Pending Neutrophils % Pending Nucleated Red Blood Cells # Pending Nucleated Red Blood Cells % Pending Platelet Count 46 #L Potassium Level 4.2 Red Blood Count 3.24 L Red Cell Distribution Width 15.2 H Sodium Level 139 White Blood Count 3.0 L Bedside Glucose 122 Medications Medications Current Medications Miscellaneous Information 1 ea NOTE XX ; Start 08/31/16 at 02:00 Glucose (Glutose) 15 gm Q15M PRN PO DECREASED GLUCOSE; Start 08/31/16 at 02:00 Glucose (Glutose) 22.5 gm Q15M PRN PO DECREASED GLUCOSE; Start 08/31/16 at 02:00 Dextrose (D50w Syringe) 25 ml Q15M PRN IV DECREASED GLUCOSE Last administered on 09/25/16 12:29; Admin Dose 25 ML; Start 08/31/16 at 02:00 Dextrose (D50w Syringe) 50 ml Q15M PRN IV DECREASED GLUCOSE; Start 08/31/16 at 02:00 Glucagon (Glucagen) 1 mg Q15M PRN IM DECREASED GLUCOSE; Start 08/31/16 at 02:00 Glucose (Glutose) 15 gm Q15M PRN BUCCAL DECREASED GLUCOSE; Start 08/31/16 at 02: 00 Fluticasone Propionate (Flonase 0.05% Nasal) 2 spray DAILY NASAL Last administered on 10/09/16 08:42; Admin Dose 2 SPRAY; Start 08/31/16 at 09:00 Ondansetron HCl (Zofran Inj) 4 mg Q6H PRN IV NAUSEA AND/OR VOMITING Last administered on 10/02/16 09:20; Admin Dose 4 MG; Start 09/01/16 at 11:30 Diphenhydramine HCl (Benadryl) 25 mg Q6H PRN PO ITCHING Last administered on 02:23; Admin Dose 25 MG; Start 09/01/16 at 11:30 Guaifenesin/ Dextromethorphan (Robitussin Dm Liquid Cup) 10 ml Q4H PRN PO COUGH Last administered on 10/01/16 20:24; Admin Dose 10 ML; Start 09/02/16 at 14:00 Allopurinol (Zyloprim) 300 mg DAILY PO Last administered on 10/09/16 08:42; Admin Dose 300 MG; Start 09/04/16 at 16:30 IV Flush (NS 10 ml) 10 ml PRN PRN IV IV PROTOCOL; Start 09/05/16 at 12:30 Bisacodyl (Dulcolax Supp) 10 mg DAILY PRN [place] CONSTIPATION; Start 09/08/16 at 12 :00 Magnesium Hydroxide (Milk Of Mag) 30 ml DAILY PRN PO CONSTIPATION Last administered on 09/09/16 06:25; Admin Dose 30 ML; Start 09/08/16 at 12:00 Polyethylene Glycol (Miralax) 17 gm DAILY PO Last administered on 10/09/16 08: 43; Admin Dose 17 GM; Start 09/08/16 at 12:00 Docusate Sodium (Colace) 100 mg BID PO Last administered on 10/09/16 08:42; Admin Dose 100 MG; Start 09/08/16 at 21:00 Phenol (Cepastat Lozenge) 1 lozenge Q1H PRN [place] SORE THROAT Last administered on 09/17/16 20:16; Admin Dose 1 LOZENGE; Start 09/08/16 at 12:00 Amlodipine Besylate (Norvasc) 5 mg QHS PO Last administered on 10/08/16 21:14 ; Admin Dose 5 MG; Start 09/11/16 at 21:00 Miscellaneous Medication (Bax Susp) 30 ml QID PO Last administered on 08:42; Admin Dose 30 ML; Start 09/13/16 at 13:00 Nystatin (Nystatin Susp) 5 ml QID PO Last administered on 10/09/16 08:43; Admin Dose 5 ML; Start 09/14/16 at 17:00 Insulin Glargine (Lantus) 7.5 unit QHS SC Last administered on 10/08/16 21:15 ; Admin Dose 7.5 UNIT; Start 09/18/16 at 21:00 Diagnostic Test (Pha) (Accucheck) 1 ea 02 XX Last administered on 10/09/16 02: 13; Admin Dose 1 EA; Start 09/23/16 at 02:00 Acetaminophen 650 mg 650 mg Q6H PRN [place] PAIN OR TEMP ABOVE 38C Last administered on 09/23/16 18:24; Admin Dose 650 MG; Start 09/23/16 at 18:00 Dextrose/Sodium Chloride (D5-NS) 1,000 ml @ 50 mls/hr Q20H IV Last administered on 10/05/16 09:12; Admin Dose 50 MLS/HR; Start 09/25/16 at 13:00 Al Hydrox/Mg Hydrox/Simethicone (Mag-Al Plus) 30 ml Q4 PO Last administered on 10/09/16 08:43; Admin Dose 30 ML; Start 09/25/16 at 15:00 Pantoprazole 40 mg 40 mg BID@06,18 IV Last administered on 10/09/16 06:33; Admin Dose 40 MG; Start 09/26/16 at 18:00 Sodium Chloride (NS) 1,000 ml @ 50 mls/hr Q20H IV Last administered on 07:00; Admin Dose 50 MLS/HR; Start 10/01/16 at 17:30 Acetaminophen (Tylenol Tab) 650 mg Q4H PRN PO PAIN AND OR ELEVATED TEMP Last administered on 10/09/16 08:43; Admin Dose 650 MG; Start 10/09/16 at 08:30 ROMA BUNDY MD Oct 09, 2016 09:11
[2016-10-09 10:05] LABS: EOSINOPHILS # 0.1 10^3/ul (0.0-0.5); LYMPHOCYTES # 1.3 10^3/ul (0.8-2.9); NEUTROPHIL # 0.3 10^3/ul (1.6-7.5); PLATELET ESTIMATE PLT APPEAR DECREASED
--- NOTE | 2016-10-09 12:27 | PN ---
Date/Time of Note Date/Time of Note DATE: 10/09/16 TIME: 12:19 Assessment/Plan VTE Prophylaxis VTE Prophylaxis Intervention: SCD's Lines/Catheters IV Catheter Type (from Nrs): PICC Line Central line still needed: Yes (for IV access ) Urinary Cath still in place: No Assessment/Plan Assessment/Plan 71 yo male with: 1. 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 S/p multiple blood product transfusion including pRBCs and platelets Neutropenia resolved for now. Plts and Hb trending down, s/p pRBC and platelets over the past 2 days. No further acute bleeding x1 week S/p Vidaza course for palliation. D/c plan per Hematology , awaiting for count recovery. Patient too weak for re-induction. PT 2. UGIB/Hematemesis: s/p EGD with hemoclipping followed by mesenteric angiogram yesterday with no source of acute bleeding found Hb has been stable since pRBC transfusion last week, platelets being kept >10K with transfusions Continue Protonix, change to po bid. Tolerating mostly soft diet due to some odynophagia/sore throat. Monitoring CBC. 3. Diabetes mellitus, with associated neuropathy manifest by numbness in both feet. BG better controlled. BG stable, once better po intake, increase dosing of Lantus back up to 15 units qhs if needed and continue SSI. Zofran as needed for Nausea 4. Chronic benign positional vertigo. Continue Meclizine PRN 5. Gastroesophageal reflux disease/Gastric Ulcer s/p episode of bleeding. Continue Protonix. 6. Hypertension: on Norvasc. 7. Oral mucosa irritation, cold sore and odynophagia: Continue Abreva and mouth wash, Nystatin. improving 8. Klebsiella Pneumoniae UTI: Completed course of Levaquin. 9. Muscle spasm: Flexeril prn Prophylaxis. Sequential compression devices to lower extremity for DVT prevention, PPI for GI ppx DISPOSITION: S/p induction chemo, following counts, Bone Marrow bx 09/19, with poor risk AML and still with residual disease. 2nd round of chemo started 10/01, and Hematology following. Subjective 24 Hr Interval Summary Free Text/Dictation Patient doing well Complaining of muscle spasms today but now up and ambulating with PT Appreciate recommendations from Dr To Exam/Review of Systems Vital Signs Vitals Vital Signs Date Time Temp Pulse Resp B/P Pulse Ox O2 Delivery O2 Flow Rate FiO2 10/09/16 08:05 97.9 87 20 127/75 100 10/05/16 18:45 Room Air Intake and Output 10/08/16 10/08/16 10/09/16 15:00 23:00 07:00 Intake Total 450 ml 1580 ml 2280 ml Output Total 1900 ml 2000 ml Balance 450 ml -320 ml 280 ml Exam Constitutional: alert, oriented, other (stronger ), well developed Respiratory: clear to auscultation, normal air movement Cardiovascular: nl pulses, regular rate and rhythm Gastrointestinal: non-tender, soft Musculoskeletal: nl extremities to inspection Extremities: normal pulses, other (no edema, clubbing or cyanosis ) Neurological: ELECT[employer]CTION PROJECT MANAGER II-XII intact, nl mental status, nl speech, other (stronger today and ambulating with PT ) Results Result Diagram: 10/09/16 0445 10/09/16 0445 Results 24 hrs Laboratory Tests Test 10/08/16 12:50 10/08/16 17:55 10/08/16 21:12 10/09/16 01:59 Bedside Glucose 212 177 206 132 Test 10/09/16 04:45 10/09/16 08:39 Anion Gap 13 Band Neutrophils % 8.0 H Basophils # Basophils % Blast Cells % 3.0 H Blastocytes # 0.1 Blood Morphology Comment Blood Urea Nitrogen 8 Calcium Level 8.7 Carbon Dioxide Level 27 Chloride Level 103 Creatinine 0.66 Differential Comment MANUAL DIFF Eosinophils # 0.1 Eosinophils % 3.0 Glucose Level 160 Hematocrit 27.4 L Hemoglobin 9.5 L Lymphocytes # 1.3 Lymphocytes % 44.0 Magnesium Level 2.0 Mean Corpuscular Hemoglobin 29.3 Mean Corpuscular Hemoglobin Concent 34.7 Mean Corpuscular Volume 84.5 Mean Platelet Volume 8.7 Monocytes # 1.0 H Monocytes % 32.0 H Neutrophils # 0.3 L Neutrophils % 10.0 L Nucleated Red Blood Cells # Nucleated Red Blood Cells % Platelet Count 46 #L Platelet Estimate PLT APPEAR DECREASED Potassium Level 4.2 Red Blood Count 3.24 L Red Cell Distribution Width 15.2 H Sodium Level 139 White Blood Count 3.0 L Bedside Glucose 122 Medications Medications Current Medications Miscellaneous Information 1 ea NOTE XX ; Start 08/31/16 at 02:00 Glucose (Glutose) 15 gm Q15M PRN PO DECREASED GLUCOSE; Start 08/31/16 at 02:00 Glucose (Glutose) 22.5 gm Q15M PRN PO DECREASED GLUCOSE; Start 08/31/16 at 02:00 Dextrose (D50w Syringe) 25 ml Q15M PRN IV DECREASED GLUCOSE Last administered on 09/25/16 12:29; Admin Dose 25 ML; Start 08/31/16 at 02:00 Dextrose (D50w Syringe) 50 ml Q15M PRN IV DECREASED GLUCOSE; Start 08/31/16 at 02:00 Glucagon (Glucagen) 1 mg Q15M PRN IM DECREASED GLUCOSE; Start 08/31/16 at 02:00 Glucose (Glutose) 15 gm Q15M PRN BUCCAL DECREASED GLUCOSE; Start 08/31/16 at 02: 00 Fluticasone Propionate (Flonase 0.05% Nasal) 2 spray DAILY NASAL Last administered on 10/09/16 08:42; Admin Dose 2 SPRAY; Start 08/31/16 at 09:00 Ondansetron HCl (Zofran Inj) 4 mg Q6H PRN IV NAUSEA AND/OR VOMITING Last administered on 10/02/16 09:20; Admin Dose 4 MG; Start 09/01/16 at 11:30 Diphenhydramine HCl (Benadryl) 25 mg Q6H PRN PO ITCHING Last administered on 02:23; Admin Dose 25 MG; Start 09/01/16 at 11:30 Guaifenesin/ Dextromethorphan (Robitussin Dm Liquid Cup) 10 ml Q4H PRN PO COUGH Last administered on 10/01/16 20:24; Admin Dose 10 ML; Start 09/02/16 at 14:00 Allopurinol (Zyloprim) 300 mg DAILY PO Last administered on 10/09/16 08:42; Admin Dose 300 MG; Start 09/04/16 at 16:30 IV Flush (NS 10 ml) 10 ml PRN PRN IV IV PROTOCOL; Start 09/05/16 at 12:30 Bisacodyl (Dulcolax Supp) 10 mg DAILY PRN [place] CONSTIPATION; Start 09/08/16 at 12 :00 Magnesium Hydroxide (Milk Of Mag) 30 ml DAILY PRN PO CONSTIPATION Last administered on 09/09/16 06:25; Admin Dose 30 ML; Start 09/08/16 at 12:00 Polyethylene Glycol (Miralax) 17 gm DAILY PO Last administered on 10/09/16 08: 43; Admin Dose 17 GM; Start 09/08/16 at 12:00 Docusate Sodium (Colace) 100 mg BID PO Last administered on 10/09/16 08:42; Admin Dose 100 MG; Start 09/08/16 at 21:00 Phenol (Cepastat Lozenge) 1 lozenge Q1H PRN [place] SORE THROAT Last administered on 09/17/16 20:16; Admin Dose 1 LOZENGE; Start 09/08/16 at 12:00 Amlodipine Besylate (Norvasc) 5 mg QHS PO Last administered on 10/08/16 21:14 ; Admin Dose 5 MG; Start 09/11/16 at 21:00 Miscellaneous Medication (Bax Susp) 30 ml QID PO Last administered on 08:42; Admin Dose 30 ML; Start 09/13/16 at 13:00 Nystatin (Nystatin Susp) 5 ml QID PO Last administered on 10/09/16 08:43; Admin Dose 5 ML; Start 09/14/16 at 17:00 Insulin Glargine (Lantus) 7.5 unit QHS SC Last administered on 10/08/16 21:15 ; Admin Dose 7.5 UNIT; Start 09/18/16 at 21:00 Diagnostic Test (Pha) (Accucheck) 1 ea 02 XX Last administered on 10/09/16 02: 13; Admin Dose 1 EA; Start 09/23/16 at 02:00 Acetaminophen 650 mg 650 mg Q6H PRN [place] PAIN OR TEMP ABOVE 38C Last administered on 09/23/16 18:24; Admin Dose 650 MG; Start 09/23/16 at 18:00 Dextrose/Sodium Chloride (D5-NS) 1,000 ml @ 50 mls/hr Q20H IV Last administered on 10/05/16 09:12; Admin Dose 50 MLS/HR; Start 09/25/16 at 13:00 Al Hydrox/Mg Hydrox/Simethicone (Mag-Al Plus) 30 ml Q4 PO Last administered on 10/09/16 08:43; Admin Dose 30 ML; Start 09/25/16 at 15:00 Pantoprazole 40 mg 40 mg BID@06,18 IV Last administered on 10/09/16 06:33; Admin Dose 40 MG; Start 09/26/16 at 18:00 Sodium Chloride (NS) 1,000 ml @ 50 mls/hr Q20H IV Last administered on 07:00; Admin Dose 50 MLS/HR; Start 10/01/16 at 17:30 Acetaminophen (Tylenol Tab) 650 mg Q4H PRN PO PAIN AND OR ELEVATED TEMP Last administered on 10/09/16 08:43; Admin Dose 650 MG; Start 10/09/16 at 08:30 TAM ROSE Oct 09, 2016 12:27
[2016-10-09] MEDS ORDERED: CYCLOBENZAPRINE 10 MG TAB PO PRN (13:00)
[2016-10-09] MEDS: DEXTROSE 5%-0.9% NACL 1,000 ML IV SCH (17:00)
[2016-10-09 20:04] VITALS: BP 140/64; RESP 22
[2016-10-09] MEDS: AMLODIPINE 5 MG TAB PO SCH (20:44)
[2016-10-09] MEDS: INSULIN GLARGINE [LANtus] 3 ML PEN SC SCH (20:48)
[2016-10-10] MEDS: AL HYDROX/MG HYDROX/SIMETH 30 ML CUP PO SCH ×6 (01:00→21:00)
[2016-10-10] MEDS: SOD CHLORIDE 0.9% 1,000 ML IV SCH ×2 (01:30→21:30)
[2016-10-10] MEDS: ACCUCHECK XX SCH (01:46)
[2016-10-10] MEDS: PANTOPRAZOLE 40 MG INJ IV SCH ×2 (06:06→17:54)
[2016-10-10] MEDS: SUCRALFATE 1 GM TAB PO SCH ×4 (06:09→21:11)
[2016-10-10] MEDS: INSULIN ASPART [NOVOLOG] 3 ML PEN SC SCH ×4 (07:50→21:14)
[2016-10-10 07:56] VITALS: BP 133/67; RESP 16
[2016-10-10 08:30] LABS: HEMATOCRIT 27.7 % (42.0-52.0); HEMOGLOBIN 9.5 g/dl (14.0-18.0); MEAN CORPUSCULAR HEMOGLOBIN 28.9 pg (29.0-33.0); MEAN CORPUSCULAR HGB CONC 34.2 g/dl (32.0-37.0); MEAN CORPUSCULAR VOLUME 84.6 fl (82.0-101.0); MEAN PLATELET VOLUME 8.7 fl (7.4-10.4); RED BLOOD COUNT 3.28 10^6/ul (4.70-6.10); RED CELL DISTRIBUTION WIDTH 15.3 % (11.5-14.5); UNCORRECTED WBC 2.7 10^3/ul (4.8-10.8); WHITE BLOOD COUNT 2.7 10^3/ul (4.8-10.8)
[2016-10-10] MEDS: DOCUSATE SODIUM 100 MG CAP PO SCH (09:00)
[2016-10-10] MEDS: POLYETHYLENE GLYCOL 17 GM PACKET PO SCH (09:00)
[2016-10-10] MEDS: FLUTICASONE 0.05% 16 GM NAS SPRAY NASAL SCH (09:00)
[2016-10-10 09:01] LABS: CONDITION 1; LH ANALYZER COMMENTS 1; PLATELET COUNT 28 10^3/UL (140-440); SUSPECT 1
[2016-10-10] MEDS: MYLANTA PO SCH ×4 (09:44→21:00)
[2016-10-10] MEDS: NYSTATIN SUSP 5 ML CUP PO SCH ×4 (09:44→21:11)
[2016-10-10] MEDS: ALLOPURINOL 300 MG TAB PO SCH (09:44)
[2016-10-10] MEDS: DIPHENHYD PO SCH ×4 (09:44→21:00)
[2016-10-10] MEDS: LIDO PO SCH ×4 (09:44→21:00)
[2016-10-10] MEDS: DIPHENHYDRAMINE 25 MG CAP PO PRN (09:46)
[2016-10-10 11:02] LABS: BASOPHIL # 0.1 10^3/ul (0.0-0.1); EOSINOPHILS # 0.1 10^3/ul (0.0-0.5); LYMPHOCYTES # 1.5 10^3/ul (0.8-2.9); MONOCYTE # 0.6 10^3/ul (0.3-0.9); NEUTROPHIL # 0.2 10^3/ul (1.6-7.5); PLATELET ESTIMATE PLT APPEAR DECREASED
--- NOTE | 2016-10-10 11:43 | PN ---
Date/Time of Note Date/Time of Note DATE: 10/10/16 TIME: 11:32 Assessment/Plan VTE Prophylaxis VTE Prophylaxis Intervention: SCD's Lines/Catheters IV Catheter Type (from Nrsg): PICC Line Central line still needed: Yes (for IV access ) Urinary Cath still in place: No Assessment/Plan Assessment/Plan 71 yo male with: 1. 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 S/p multiple blood product transfusion including pRBCs and platelets Neutropenia resolved for now. Plts and Hb trending down, s/p pRBC and platelets over the past 2 days. No further acute bleeding x2 weeks S/p Vidaza course for palliation. D/c plan per Hematology, awaiting for count recovery. Continue PT 2. UGIB/Hematemesis: s/p EGD with hemoclipping followed by mesenteric angiogram yesterday with no source of acute bleeding found Hb has been stable since pRBC transfusion last week, platelets being kept >10K with transfusions Continue Protonix bid. Tolerating mostly soft diet due to some odynophagia/sore throat. Monitoring CBC. 3. Diabetes mellitus, with associated neuropathy manifest by numbness in both feet. BG better controlled. BG stable, once better po intake, increase dosing of Lantus back up to 15 units qhs if needed and continue SSI. Zofran as needed for Nausea 4. Chronic benign positional vertigo. Continue Meclizine PRN 5. Gastroesophageal reflux disease/Gastric Ulcer s/p episode of bleeding. Continue Protonix. 6. Hypertension: on Norvasc. 7. Oral mucosa irritation, cold sore and odynophagia: Continue Abreva and mouth wash, Nystatin. improving 8. Muscle spasm: Flexeril prn Prophylaxis. Sequential compression devices to lower extremity for DVT prevention, PPI for GI ppx DISPOSITION: S/p induction chemo, followed by 2nd round of chemo with Vidaza, following counts, Hematology following. Subjective 24 Hr Interval Summary Free Text/Dictation Patient doing oK No complaints today A little more po intake and no back back pain Ambulated in Hallway with PT today Exam/Review of Systems Vital Signs Vitals Vital Signs Date Time Temp Pulse Resp B/P Pulse Ox O2 Delivery O2 Flow Rate FiO2 10/10/16 07:56 97.6 79 16 133/67 100 Intake and Output 10/09/16 10/09/16 10/10/16 15:00 23:00 07:00 Intake Total 1300 ml 1480 ml Output Total 1000 ml 1200 ml Balance 300 ml 280 ml Exam Constitutional: alert, oriented, other (stronger, ambulating in Hallway with PT ), well developed Respiratory: clear to auscultation Cardiovascular: nl pulses, regular rate and rhythm Gastrointestinal: non-tender, soft Musculoskeletal: nl extremities to inspection Extremities: normal pulses Neurological: DIAGNOSTIC IMAGING MANAGER II-XII intact, nl mental status, nl speech, other (improving strength every day ) Results Result Diagram: 10/10/16 0814 10/09/16 0445 Results 24 hrs Laboratory Tests Test 10/09/16 12:24 10/09/16 17:44 10/09/16 20:42 10/09/16 22:38 Bedside Glucose 177 141 136 177 Test 10/10/16 08:14 10/10/16 08:16 Basophils # 0.1 Basophils % 5.0 H Blast Cells % 5.0 H Blastocytes # 0.1 Blood Morphology Comment Eosinophils # 0.1 Eosinophils % 5.0 Hematocrit 27.7 L Hemoglobin 9.5 L Lymphocytes # 1.5 Lymphocytes % 56.0 H Mean Corpuscular Hemoglobin 28.9 L Mean Corpuscular Hemoglobin Concent 34.2 Mean Corpuscular Volume 84.6 Mean Platelet Volume 8.7 Monocytes # 0.6 Monocytes % 22.0 H Neutrophils # 0.2 L Neutrophils % 7.0 L Nucleated Red Blood Cells # Nucleated Red Blood Cells % Platelet Count 28 #*L Platelet Estimate PLT APPEAR DECREASED Red Blood Count 3.28 L Red Cell Distribution Width 15.3 H White Blood Count 2.7 L Bedside Glucose 131 Medications Medications Current Medications Miscellaneous Information 1 ea NOTE XX ; Start 08/31/16 at 02:00 Glucose (Glutose) 15 gm Q15M PRN PO DECREASED GLUCOSE; Start 08/31/16 at 02:00 Glucose (Glutose) 22.5 gm Q15M PRN PO DECREASED GLUCOSE; Start 08/31/16 at 02:00 Dextrose (D50w Syringe) 25 ml Q15M PRN IV DECREASED GLUCOSE Last administered on 09/25/16t 12:29; Admin Dose 25 ML; Start 08/31/16 at 02:00 Dextrose (D50w Syringe) 50 ml Q15M PRN IV DECREASED GLUCOSE; Start 08/31/16 at 02:00 Glucagon (Glucagen) 1 mg Q15M PRN IM DECREASED GLUCOSE; Start 08/31/16 at 02:00 Glucose (Glutose) 15 gm Q15M PRN BUCCAL DECREASED GLUCOSE; Start 08/31/16 at 02: 00 Fluticasone Propionate (Flonase 0.05% Nasal) 2 spray DAILY NASAL Last administered on 10/09/16 08:42; Admin Dose 2 SPRAY; Start 08/31/16 at 09:00 Ondansetron HCl (Zofran Inj) 4 mg Q6H PRN IV NAUSEA AND/OR VOMITING Last administered on 10/02/16 09:20; Admin Dose 4 MG; Start 09/01/16 at 11:30 Diphenhydramine HCl (Benadryl) 25 mg Q6H PRN PO ITCHING Last administered on 09:46; Admin Dose 25 MG; Start 09/01/16 at 11:30 Guaifenesin/ Dextromethorphan (Robitussin Dm Liquid Cup) 10 ml Q4H PRN PO COUGH Last administered on 10/01/16 20:24; Admin Dose 10 ML; Start 09/02/16 at 14:00 Allopurinol (Zyloprim) 300 mg DAILY PO Last administered on 10/10/16 09:44; Admin Dose 300 MG; Start 09/04/16 at 16:30 IV Flush (NS 10 ml) 10 ml PRN PRN IV IV PROTOCOL; Start 09/05/16 at 12:30 Bisacodyl (Dulcolax Supp) 10 mg DAILY PRN [place] CONSTIPATION; Start 09/08/16 at 12 :00 Magnesium Hydroxide (Milk Of Mag) 30 ml DAILY PRN PO CONSTIPATION Last administered on 09/09/16 06:25; Admin Dose 30 ML; Start 09/08/16 at 12:00 Polyethylene Glycol (Miralax) 17 gm DAILY PO Last administered on 10/09/16 08: 43; Admin Dose 17 GM; Start 09/08/16 at 12:00 Docusate Sodium (Colace) 100 mg BID PO Last administered on 10/09/16 08:42; Admin Dose 100 MG; Start 09/08/16 at 21:00 Phenol (Cepastat Lozenge) 1 lozenge Q1H PRN [place] SORE THROAT Last administered on 09/17/16 20:16; Admin Dose 1 LOZENGE; Start 09/08/16 at 12:00 Amlodipine Besylate (Norvasc) 5 mg QHS PO Last administered on 10/09/16 20:44 ; Admin Dose 5 MG; Start 09/11/16 at 21:00 Miscellaneous Medication (Bax Susp) 30 ml QID PO Last administered on 09:44; Admin Dose 30 ML; Start 09/13/16 at 13:00 Nystatin (Nystatin Susp) 5 ml QID PO Last administered on 10/10/16 09:44; Admin Dose 5 ML; Start 09/14/16 at 17:00 Insulin Glargine (Lantus) 7.5 unit QHS SC Last administered on 10/09/16 20:48 ; Admin Dose 7.5 UNIT; Start 09/18/16 at 21:00 Diagnostic Test (Pha) (Accucheck) 1 ea 02 XX Last administered on 10/09/16 02: 13; Admin Dose 1 EA; Start 09/23/16 at 02:00 Acetaminophen 650 mg 650 mg Q6H PRN [place] PAIN OR TEMP ABOVE 38C Last administered on 09/23/16 18:24; Admin Dose 650 MG; Start 09/23/16 at 18:00 Dextrose/Sodium Chloride (D5-NS) 1,000 ml @ 50 mls/hr Q20H IV Last administered on 10/05/16 09:12; Admin Dose 50 MLS/HR; Start 09/25/16 at 13:00 Al Hydrox/Mg Hydrox/Simethicone (Mag-Al Plus) 30 ml Q4 PO Last administered on 10/10/16 09:44; Admin Dose 30 ML; Start 09/25/16 at 15:00 Pantoprazole 40 mg 40 mg BID@06,18 IV Last administered on 10/10/16 06:06; Admin Dose 40 MG; Start 09/26/16 at 18:00 Sodium Chloride (NS) 1,000 ml @ 50 mls/hr Q20H IV Last administered on 07:00; Admin Dose 50 MLS/HR; Start 10/01/16 at 17:30 Acetaminophen (Tylenol Tab) 650 mg Q4H PRN PO PAIN AND OR ELEVATED TEMP Last administered on 10/09/16 08:43; Admin Dose 650 MG; Start 10/09/16 at 08:30 Cyclobenzaprine HCl (Flexeril) 5 mg Q8 PRN PO MUSCLE SPASMS Last administered on 10/09/16 23:07; Admin Dose 5 MG; Start 10/09/16 at 13:00 TAM ROSE Oct 10, 2016 11:42
[2016-10-10] MEDS ORDERED: DOCUSATE SODIUM 100 MG CAP PO PRN (12:00)
--- NOTE | 2016-10-10 12:41 | CONS ---
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 Pt has completed 7+3 and tolerated chemotherapy well thus far. Preliminary report of Day 14 bone marrow still shows residual disease. Given patient is too weak for re-induction chemotherapy will proceed with Vidaza, hypomethylating agent when patient counts recover. 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 Patient started on Vidaza -10/07/16. - Plt are currently >20K. Thrombocytopenia may be partly due to prior induction chemo and partly due to residual disease. Goal of Vidaza is palliative, patient would not be a good transplant or clinical trial candidate given his performance status and poor tolerance of induction chemotherapy requiring ICU admission. - s/p pRBCs 10/07/16 and platelets 10/08/16. Plt today declined from 46 to 28, may need platelet transfusion tomorrow. 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 - Continue allopurinol - Patient underwent EGD on 09/23/16 that demonstrated gastric ulcer covered by clot s/p hemoclipping, now s/p mesenteric angiogram and embolization of the left gastric artery. Patient was in the ICU, now back on med surg floor. Hematemesis resolved. - Patient will need to stay inpatient to await count recovery and monitor for infection, transfusions, etc. Plt goal > 50K if bleeding, > 20K if febrile, otherwise >10K. - Discussed with patient's daughter Tawny ([phone]) who was updated on situation and plan Problems: Consultation Date/Type/Reason Admit Date/Time Aug 31, 2016 at 00:38 Initial Consult Date 09/02/16 Type of Consultation: Hematology/Oncology Referring Provider: TAM ROSE 24 HR Interval Summary Free Text/Dictation Patient was able to walk with assistance with physical therapy. No bleeding. Exam/Review of Systems Vital Signs Vitals Vital Signs Date Time Temp Pulse Resp B/P Pulse Ox O2 Delivery O2 Flow Rate FiO2 10/10/16 07:56 97.6 79 16 133/67 100 Intake and Output 10/09/16 10/09/16 10/10/16 15:00 23:00 07:00 Intake Total 1300 ml 1480 ml Output Total 1000 ml 1200 ml Balance 300 ml 280 ml Exam Constitutional: alert, oriented Psych: no complaints Head: normocephalic Eyes: nl conjunctiva ENMT: nl external ears & nose, nl lips & teeth Neck: non-tender, supple Respiratory: clear to auscultation, normal air movement Cardiovascular: regular rate and rhythm Gastrointestinal: soft Musculoskeletal: nl extremities to inspection, nl gait and stance Results Result Diagram: 10/10/16 0814 10/09/16 0445 Results 24 hrs Laboratory Tests Test 10/09/16 17:44 10/09/16 20:42 10/09/16 22:38 10/10/16 08:14 Bedside Glucose 141 136 177 Basophils # 0.1 Basophils % 5.0 H Blast Cells % 5.0 H Blastocytes # 0.1 Blood Morphology Comment Eosinophils # 0.1 Eosinophils % 5.0 Hematocrit 27.7 L Hemoglobin 9.5 L Lymphocytes # 1.5 Lymphocytes % 56.0 H Mean Corpuscular Hemoglobin 28.9 L Mean Corpuscular Hemoglobin Concent 34.2 Mean Corpuscular Volume 84.6 Mean Platelet Volume 8.7 Monocytes # 0.6 Monocytes % 22.0 H Neutrophils # 0.2 L Neutrophils % 7.0 L Nucleated Red Blood Cells # Nucleated Red Blood Cells % Platelet Count 28 #*L Platelet Estimate PLT APPEAR DECREASED Red Blood Count 3.28 L Red Cell Distribution Width 15.3 H White Blood Count 2.7 L Test 10/10/16 08:16 10/10/16 11:40 Bedside Glucose 131 207 Medications Medications Current Medications Miscellaneous Information 1 ea NOTE XX ; Start 08/31/16 at 02:00 Glucose (Glutose) 15 gm Q15M PRN PO DECREASED GLUCOSE; Start 08/31/16 at 02:00 Glucose (Glutose) 22.5 gm Q15M PRN PO DECREASED GLUCOSE; Start 08/31/16 at 02:00 Dextrose (D50w Syringe) 25 ml Q15M PRN IV DECREASED GLUCOSE Last administered on 09/25/16t 12:29; Admin Dose 25 ML; Start 08/31/16 at 02:00 Dextrose (D50w Syringe) 50 ml Q15M PRN IV DECREASED GLUCOSE; Start 08/31/16 at 02:00 Glucagon (Glucagen) 1 mg Q15M PRN IM DECREASED GLUCOSE; Start 08/31/16 at 02:00 Glucose (Glutose) 15 gm Q15M PRN BUCCAL DECREASED GLUCOSE; Start 08/31/16 at 02: 00 Fluticasone Propionate (Flonase 0.05% Nasal) 2 spray DAILY NASAL Last administered on 10/09/16 08:42; Admin Dose 2 SPRAY; Start 08/31/16 at 09:00 Ondansetron HCl (Zofran Inj) 4 mg Q6H PRN IV NAUSEA AND/OR VOMITING Last administered on 10/02/16 09:20; Admin Dose 4 MG; Start 09/01/16 at 11:30 Diphenhydramine HCl (Benadryl) 25 mg Q6H PRN PO ITCHING Last administered on 09:46; Admin Dose 25 MG; Start 09/01/16 at 11:30 Guaifenesin/ Dextromethorphan (Robitussin Dm Liquid Cup) 10 ml Q4H PRN PO COUGH Last administered on 10/01/16 20:24; Admin Dose 10 ML; Start 09/02/16 at 14:00 Allopurinol (Zyloprim) 300 mg DAILY PO Last administered on 10/10/16 09:44; Admin Dose 300 MG; Start 09/04/16 at 16:30 IV Flush (NS 10 ml) 10 ml PRN PRN IV IV PROTOCOL; Start 09/05/16 at 12:30 Bisacodyl (Dulcolax Supp) 10 mg DAILY PRN [place] CONSTIPATION; Start 09/08/16 at 12 :00 Magnesium Hydroxide (Milk Of Mag) 30 ml DAILY PRN PO CONSTIPATION Last administered on 09/09/16 06:25; Admin Dose 30 ML; Start 09/08/16 at 12:00 Polyethylene Glycol (Miralax) 17 gm DAILY PO Last administered on 10/09/16 08: 43; Admin Dose 17 GM; Start 09/08/16 at 12:00 Phenol (Cepastat Lozenge) 1 lozenge Q1H PRN MT SORE THROAT Last administered on 09/17/16 20:16; Admin Dose 1 LOZENGE; Start 09/08/16 at 12:00 Amlodipine Besylate (Norvasc) 5 mg QHS PO Last administered on 10/09/16 20:44 ; Admin Dose 5 MG; Start 09/11/16 at 21:00 Miscellaneous Medication (Bax Susp) 30 ml QID PO Last administered on 09:44; Admin Dose 30 ML; Start 09/13/16 at 13:00 Nystatin (Nystatin Susp) 5 ml QID PO Last administered on 10/10/16 09:44; Admin Dose 5 ML; Start 09/14/16 at 17:00 Insulin Glargine (Lantus) 7.5 unit QHS SC Last administered on 10/09/16 20:48 ; Admin Dose 7.5 UNIT; Start 09/18/16 at 21:00 Diagnostic Test (Pha) (Accucheck) 1 ea 02 XX Last administered on 10/09/16 02: 13; Admin Dose 1 EA; Start 09/23/16 at 02:00 Acetaminophen 650 mg 650 mg Q6H PRN [place] PAIN OR TEMP ABOVE 38C Last administered on 09/23/16 18:24; Admin Dose 650 MG; Start 09/23/16 at 18:00 Dextrose/Sodium Chloride (D5-NS) 1,000 ml @ 50 mls/hr Q20H IV Last administered on 10/05/16 09:12; Admin Dose 50 MLS/HR; Start 09/25/16 at 13:00 Al Hydrox/Mg Hydrox/Simethicone (Mag-Al Plus) 30 ml Q4 PO Last administered on 10/10/16 09:44; Admin Dose 30 ML; Start 09/25/16 at 15:00 Pantoprazole 40 mg 40 mg BID@06,18 IV Last administered on 10/10/16 06:06; Admin Dose 40 MG; Start 09/26/16 at 18:00 Sodium Chloride (NS) 1,000 ml @ 50 mls/hr Q20H IV Last administered on 07:00; Admin Dose 50 MLS/HR; Start 10/01/16 at 17:30 Acetaminophen (Tylenol Tab) 650 mg Q4H PRN PO PAIN AND OR ELEVATED TEMP Last administered on 10/09/16 08:43; Admin Dose 650 MG; Start 10/09/16 at 08:30 Cyclobenzaprine HCl (Flexeril) 5 mg Q8 PRN PO MUSCLE SPASMS Last administered on 10/09/16 23:07; Admin Dose 5 MG; Start 10/09/16 at 13:00 Docusate Sodium (Colace) 100 mg BID PRN PO CONSTIPATION; Start 10/10/16 at 12: 00 ROMA BUNDY MD Oct 10, 2016 12:41
[2016-10-10] MEDS: DEXTROSE 5%-0.9% NACL 1,000 ML IV SCH (13:00)
[2016-10-10 19:56] VITALS: BP 156/81; RESP 20
[2016-10-10] MEDS: AMLODIPINE 5 MG TAB PO SCH (21:11)
[2016-10-10] MEDS: INSULIN GLARGINE [LANtus] 3 ML PEN SC SCH (21:15)
[2016-10-11] MEDS: AL HYDROX/MG HYDROX/SIMETH 30 ML CUP PO SCH ×6 (01:00→21:23)
[2016-10-11] MEDS: ACCUCHECK XX SCH (02:00)
[2016-10-11] MEDS: PANTOPRAZOLE 40 MG INJ IV SCH ×2 (06:27→17:46)
[2016-10-11 07:06] LABS: HEMATOCRIT 27.4 % (42.0-52.0); HEMOGLOBIN 9.4 g/dl (14.0-18.0); MEAN CORPUSCULAR HEMOGLOBIN 29.2 pg (29.0-33.0); MEAN CORPUSCULAR HGB CONC 34.3 g/dl (32.0-37.0); MEAN CORPUSCULAR VOLUME 85.2 fl (82.0-101.0); MEAN PLATELET VOLUME 9.3 fl (7.4-10.4); RED BLOOD COUNT 3.22 10^6/ul (4.70-6.10); RED CELL DISTRIBUTION WIDTH 15.5 % (11.5-14.5); UNCORRECTED WBC 2.9 10^3/ul (4.8-10.8); WHITE BLOOD COUNT 2.9 10^3/ul (4.8-10.8)
[2016-10-11 07:22] VITALS: BP 119/59; RESP 16
[2016-10-11 07:22] LABS: PLATELET COUNT 21 10^3/UL (140-440)
[2016-10-11 07:23] LABS: CONDITION 1; LH ANALYZER COMMENTS 1; SUSPECT 1
[2016-10-11] MEDS: INSULIN ASPART [NOVOLOG] 3 ML PEN SC SCH ×4 (07:50→21:00)
[2016-10-11] MEDS: LIDO PO SCH ×4 (08:57→21:22)
[2016-10-11] MEDS: DEXTROSE 5%-0.9% NACL 1,000 ML IV SCH (08:57)
[2016-10-11] MEDS: MYLANTA PO SCH ×4 (08:57→21:22)
[2016-10-11] MEDS: POLYETHYLENE GLYCOL 17 GM PACKET PO SCH (08:57)
[2016-10-11] MEDS: DIPHENHYD PO SCH ×4 (08:57→21:22)
[2016-10-11] MEDS: FLUTICASONE 0.05% 16 GM NAS SPRAY NASAL SCH (09:00)
[2016-10-11] MEDS: SUCRALFATE 1 GM TAB PO SCH ×4 (09:01→21:19)
[2016-10-11] MEDS: NYSTATIN SUSP 5 ML CUP PO SCH ×4 (09:01→21:24)
[2016-10-11] MEDS: ALLOPURINOL 300 MG TAB PO SCH (09:01)
--- NOTE | 2016-10-11 11:10 | PN ---
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 Pt completed 7+3 but preliminary report of Day 14 bone marrow still showed residual disease. Given patient is too weak for re-induction chemotherapy treated subsequently with Vidaza, hypomethylating agent. 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 Patient started on Vidaza -10/07/16. - Plt are currently >20K. Thrombocytopenia may be partly due to prior induction chemo and partly due to residual disease. Goal of Vidaza is palliative, patient would not be a good transplant or clinical trial candidate given his performance status and poor tolerance of induction chemotherapy requiring ICU admission. - s/p pRBCs 10/07/16 and platelets 10/08/16. Hgb now 9-10. Plt today declined to 21 from 28, may need platelet transfusion in next 48 hrs. 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 - Continue allopurinol - Patient underwent EGD on 09/23/16 that demonstrated gastric ulcer covered by clot s/p hemoclipping, now s/p mesenteric angiogram and embolization of the left gastric artery. Hematemesis resolved. - Patient will need to stay inpatient to await count recovery and monitor for infection, transfusions, etc. Plt goal > 50K if bleeding, > 20K if febrile, otherwise >10K. Subjective 24 Hr Interval Summary Free Text/Dictation fatigue and dizziness. Exam/Review of Systems Vital Signs Vitals Vital Signs Date Time Temp Pulse Resp B/P Pulse Ox O2 Delivery O2 Flow Rate FiO2 10/11/16 07:22 98.0 82 16 119/59 92 Intake and Output 10/10/16 10/10/16 10/11/16 15:00 23:00 07:00 Intake Total 640 ml 1150 ml Output Total 800 ml 1000 ml Balance -160 ml 150 ml Exam Constitutional: alert, oriented Eyes: nl conjunctiva Neck: supple Respiratory: normal air movement Cardiovascular: regular rate and rhythm Gastrointestinal: soft Results Result Diagram: 10/11/16 0620 10/09/16 0445 Results 24 hrs Laboratory Tests Test 10/10/16 11:40 10/10/16 17:52 10/10/16 21:10 10/11/16 02:55 Bedside Glucose 207 128 183 181 Test 10/11/16 06:20 10/11/16 09:00 Basophils # Basophils % Blood Morphology Comment Eosinophils # Eosinophils % Hematocrit 27.4 L Hemoglobin 9.4 L Lymphocytes # Lymphocytes % Mean Corpuscular Hemoglobin 29.2 Mean Corpuscular Hemoglobin Concent 34.3 Mean Corpuscular Volume 85.2 Mean Platelet Volume 9.3 Monocytes # Neutrophils # Neutrophils % Nucleated Red Blood Cells # Nucleated Red Blood Cells % Platelet Count 21 #*L Red Blood Count 3.22 L Red Cell Distribution Width 15.5 H White Blood Count 2.9 L Bedside Glucose 119 Medications Medications Current Medications Miscellaneous Information 1 ea NOTE XX ; Start 08/31/16 at 02:00 Glucose (Glutose) 15 gm Q15M PRN PO DECREASED GLUCOSE; Start 08/31/16 at 02:00 Glucose (Glutose) 22.5 gm Q15M PRN PO DECREASED GLUCOSE; Start 08/31/16 at 02:00 Dextrose (D50w Syringe) 25 ml Q15M PRN IV DECREASED GLUCOSE Last administered on 09/25/16 12:29; Admin Dose 25 ML; Start 08/31/16 at 02:00 Dextrose (D50w Syringe) 50 ml Q15M PRN IV DECREASED GLUCOSE; Start 08/31/16 at 02:00 Glucagon (Glucagen) 1 mg Q15M PRN IM DECREASED GLUCOSE; Start 08/31/16 at 02:00 Glucose (Glutose) 15 gm Q15M PRN BUCCAL DECREASED GLUCOSE; Start 08/31/16 at 02: 00 Fluticasone Propionate (Flonase 0.05% Nasal) 2 spray DAILY NASAL Last administered on 10/09/16 08:42; Admin Dose 2 SPRAY; Start 08/31/16 at 09:00 Ondansetron HCl (Zofran Inj) 4 mg Q6H PRN IV NAUSEA AND/OR VOMITING Last administered on 10/02/16 09:20; Admin Dose 4 MG; Start 09/01/16 at 11:30 Diphenhydramine HCl (Benadryl) 25 mg Q6H PRN PO ITCHING Last administered on 09:46; Admin Dose 25 MG; Start 09/01/16 at 11:30 Guaifenesin/ Dextromethorphan (Robitussin Dm Liquid Cup) 10 ml Q4H PRN PO COUGH Last administered on 10/01/16 20:24; Admin Dose 10 ML; Start 09/02/16 at 14:00 Allopurinol (Zyloprim) 300 mg DAILY PO Last administered on 10/11/16 09:01; Admin Dose 300 MG; Start 09/04/16 at 16:30 IV Flush (NS 10 ml) 10 ml PRN PRN IV IV PROTOCOL; Start 09/05/16 at 12:30 Bisacodyl (Dulcolax Supp) 10 mg DAILY PRN [place] CONSTIPATION; Start 09/08/16 at 12 :00 Magnesium Hydroxide (Milk Of Mag) 30 ml DAILY PRN PO CONSTIPATION Last administered on 09/09/16 06:25; Admin Dose 30 ML; Start 09/08/16 at 12:00 Polyethylene Glycol (Miralax) 17 gm DAILY PO Last administered on 10/09/16 08: 43; Admin Dose 17 GM; Start 09/08/16 at 12:00 Phenol (Cepastat Lozenge) 1 lozenge Q1H PRN MT SORE THROAT Last administered on 09/17/16 20:16; Admin Dose 1 LOZENGE; Start 09/08/16 at 12:00 Amlodipine Besylate (Norvasc) 5 mg QHS PO Last administered on 10/10/16 21:11 ; Admin Dose 5 MG; Start 09/11/16 at 21:00 Miscellaneous Medication (Bax Susp) 30 ml QID PO Last administered on 17:54; Admin Dose 30 ML; Start 09/13/16 at 13:00 Nystatin (Nystatin Susp) 5 ml QID PO Last administered on 10/11/16 09:01; Admin Dose 5 ML; Start 09/14/16 at 17:00 Insulin Glargine (Lantus) 7.5 unit QHS SC Last administered on 10/10/16 21:15 ; Admin Dose 7.5 UNIT; Start 09/18/16 at 21:00 Diagnostic Test (Pha) (Accucheck) 1 ea 02 XX Last administered on 10/09/16 02: 13; Admin Dose 1 EA; Start 09/23/16 at 02:00 Acetaminophen 650 mg 650 mg Q6H PRN [place] PAIN OR TEMP ABOVE 38C Last administered on 09/23/16 18:24; Admin Dose 650 MG; Start 09/23/16 at 18:00 Dextrose/Sodium Chloride (D5-NS) 1,000 ml @ 50 mls/hr Q20H IV Last administered on 10/05/16 09:12; Admin Dose 50 MLS/HR; Start 09/25/16 at 13:00 Al Hydrox/Mg Hydrox/Simethicone (Mag-Al Plus) 30 ml Q4 PO Last administered on 10/11/16 09:01; Admin Dose 30 ML; Start 09/25/16 at 15:00 Pantoprazole 40 mg 40 mg BID@06,18 IV Last administered on 10/11/16 06:27; Admin Dose 40 MG; Start 09/26/16 at 18:00 Sodium Chloride (NS) 1,000 ml @ 50 mls/hr Q20H IV Last administered on 07:00; Admin Dose 50 MLS/HR; Start 10/01/16 at 17:30 Acetaminophen (Tylenol Tab) 650 mg Q4H PRN PO PAIN AND OR ELEVATED TEMP Last administered on 10/09/16 08:43; Admin Dose 650 MG; Start 10/09/16 at 08:30 Cyclobenzaprine HCl (Flexeril) 5 mg Q8 PRN PO MUSCLE SPASMS Last administered on 10/09/16 23:07; Admin Dose 5 MG; Start 10/09/16 at 13:00 Docusate Sodium (Colace) 100 mg BID PRN PO CONSTIPATION; Start 10/10/16 at 12: 00 LANNY LUX MD Oct 11, 2016 11:10
--- NOTE | 2016-10-11 11:54 | PN ---
Date/Time of Note Date/Time of Note DATE: 10/11/16 TIME: 11:51 Assessment/Plan VTE Prophylaxis VTE Prophylaxis Intervention: ambulation, SCD's VTE Contraindication Reason: thrombocytopenia Lines/Catheters IV Catheter Type (from Nrsg): PICC Line Central line still needed: Yes Urinary Cath still in place: No Assessment/Plan Assessment/Plan 71 yo male with: 1. 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 S/p multiple blood product transfusion including pRBCs and platelets Neutropenia resolved for now. Plts and Hb trending down, s/p pRBC and platelets over the past 2 days. No further acute bleeding for the last 2 weeks S/p Vidaza course for palliation. D/c plan per Hematology, awaiting for count recovery. Continue PT; ambulating in room and upt to chair for all meals. 2. UGIB/Hematemesis: s/p EGD with hemoclipping followed by mesenteric angiogram yesterday with no source of acute bleeding found Hb has been stable since pRBC transfusion last week, platelets being kept >10K with transfusions Continue Protonix bid. Tolerating mostly soft diet due to some odynophagia/sore throat. Monitoring daily CBC. 3. Diabetes mellitus, with associated neuropathy manifest by numbness in both feet. BG better controlled. BG stable, once better po intake, increase dosing of Lantus back up to 15 units qhs if needed and continue SSI. Zofran as needed for Nausea 4. Chronic benign positional vertigo. Continue Meclizine PRN 5. Gastroesophageal reflux disease/Gastric Ulcer s/p episode of bleeding. Continue Protonix. 6. Hypertension: on Norvasc with good control. 7. Oral mucosa irritation, cold sore and odynophagia: Continue Abreva and mouth wash, Nystatin. improving 8. Muscle spasm: Flexeril prn Prophylaxis. Sequential compression devices to lower extremity for DVT prevention, PPI for GI ppx DISPOSITION: S/p induction chemo, followed by 2nd round of chemo with Vidaza, following counts, Hematology following. Subjective 24 Hr Interval Summary Free Text/Dictation No major complaints. Resting in bed comfortably. Exam/Review of Systems Vital Signs Vitals Vital Signs Date Time Temp Pulse Resp B/P Pulse Ox O2 Delivery O2 Flow Rate FiO2 10/11/16 07:22 98.0 82 16 119/59 92 Intake and Output 10/10/16 10/10/16 10/11/16 15:00 23:00 07:00 Intake Total 640 ml 1150 ml Output Total 800 ml 1000 ml Balance -160 ml 150 ml Exam Constitutional: alert, oriented Psych: no complaints Head: normocephalic Eyes: nl conjunctiva ENMT: nl external ears & nose Neck: supple Respiratory: clear to auscultation Cardiovascular: regular rate and rhythm Gastrointestinal: soft Extremities: normal pulses Results Result Diagram: 10/11/16 0620 10/09/16 0445 Results 24 hrs Laboratory Tests Test 10/10/16 17:52 10/10/16 21:10 10/11/16 02:55 10/11/16 06:20 Bedside Glucose 128 183 181 Basophils # Basophils % Blood Morphology Comment Eosinophils # Eosinophils % Hematocrit 27.4 L Hemoglobin 9.4 L Lymphocytes # Lymphocytes % Mean Corpuscular Hemoglobin 29.2 Mean Corpuscular Hemoglobin Concent 34.3 Mean Corpuscular Volume 85.2 Mean Platelet Volume 9.3 Monocytes # Neutrophils # Neutrophils % Nucleated Red Blood Cells # Nucleated Red Blood Cells % Platelet Count 21 #*L Red Blood Count 3.22 L Red Cell Distribution Width 15.5 H White Blood Count 2.9 L Test 10/11/16 09:00 Bedside Glucose 119 Medications Medications Current Medications Miscellaneous Information 1 ea NOTE XX ; Start 08/31/16 at 02:00 Glucose (Glutose) 15 gm Q15M PRN PO DECREASED GLUCOSE; Start 08/31/16 at 02:00 Glucose (Glutose) 22.5 gm Q15M PRN PO DECREASED GLUCOSE; Start 08/31/16 at 02:00 Dextrose (D50w Syringe) 25 ml Q15M PRN IV DECREASED GLUCOSE Last administered on 09/25/16t 12:29; Admin Dose 25 ML; Start 08/31/16 at 02:00 Dextrose (D50w Syringe) 50 ml Q15M PRN IV DECREASED GLUCOSE; Start 08/31/16 at 02:00 Glucagon (Glucagen) 1 mg Q15M PRN IM DECREASED GLUCOSE; Start 08/31/16 at 02:00 Glucose (Glutose) 15 gm Q15M PRN BUCCAL DECREASED GLUCOSE; Start 08/31/16 at 02: 00 Fluticasone Propionate (Flonase 0.05% Nasal) 2 spray DAILY NASAL Last administered on 10/09/16 08:42; Admin Dose 2 SPRAY; Start 08/31/16 at 09:00 Ondansetron HCl (Zofran Inj) 4 mg Q6H PRN IV NAUSEA AND/OR VOMITING Last administered on 10/02/16 09:20; Admin Dose 4 MG; Start 09/01/16 at 11:30 Diphenhydramine HCl (Benadryl) 25 mg Q6H PRN PO ITCHING Last administered on 09:46; Admin Dose 25 MG; Start 09/01/16 at 11:30 Guaifenesin/ Dextromethorphan (Robitussin Dm Liquid Cup) 10 ml Q4H PRN PO COUGH Last administered on 10/01/16 20:24; Admin Dose 10 ML; Start 09/02/16 at 14:00 Allopurinol (Zyloprim) 300 mg DAILY PO Last administered on 10/11/16 09:01; Admin Dose 300 MG; Start 09/04/16 at 16:30 IV Flush (NS 10 ml) 10 ml PRN PRN IV IV PROTOCOL; Start 09/05/16 at 12:30 Bisacodyl (Dulcolax Supp) 10 mg DAILY PRN [place] CONSTIPATION; Start 09/08/16 at 12 :00 Magnesium Hydroxide (Milk Of Mag) 30 ml DAILY PRN PO CONSTIPATION Last administered on 09/09/16 06:25; Admin Dose 30 ML; Start 09/08/16 at 12:00 Polyethylene Glycol (Miralax) 17 gm DAILY PO Last administered on 10/09/16 08: 43; Admin Dose 17 GM; Start 09/08/16 at 12:00 Phenol (Cepastat Lozenge) 1 lozenge Q1H PRN MT SORE THROAT Last administered on 09/17/16 20:16; Admin Dose 1 LOZENGE; Start 09/08/16 at 12:00 Amlodipine Besylate (Norvasc) 5 mg QHS PO Last administered on 10/10/16 21:11 ; Admin Dose 5 MG; Start 09/11/16 at 21:00 Miscellaneous Medication (Bax Susp) 30 ml QID PO Last administered on 17:54; Admin Dose 30 ML; Start 09/13/16 at 13:00 Nystatin (Nystatin Susp) 5 ml QID PO Last administered on 10/11/16 09:01; Admin Dose 5 ML; Start 09/14/16 at 17:00 Insulin Glargine (Lantus) 7.5 unit QHS SC Last administered on 10/10/16 21:15 ; Admin Dose 7.5 UNIT; Start 09/18/16 at 21:00 Diagnostic Test (Pha) (Accucheck) 1 ea 02 XX Last administered on 10/09/16 02: 13; Admin Dose 1 EA; Start 09/23/16 at 02:00 Acetaminophen 650 mg 650 mg Q6H PRN [place] PAIN OR TEMP ABOVE 38C Last administered on 09/23/16 18:24; Admin Dose 650 MG; Start 09/23/16 at 18:00 Dextrose/Sodium Chloride (D5-NS) 1,000 ml @ 50 mls/hr Q20H IV Last administered on 10/05/16 09:12; Admin Dose 50 MLS/HR; Start 09/25/16 at 13:00 Al Hydrox/Mg Hydrox/Simethicone (Mag-Al Plus) 30 ml Q4 PO Last administered on 10/11/16 09:01; Admin Dose 30 ML; Start 09/25/16 at 15:00 Pantoprazole 40 mg 40 mg BID@06,18 IV Last administered on 10/11/16 06:27; Admin Dose 40 MG; Start 09/26/16 at 18:00 Sodium Chloride (NS) 1,000 ml @ 50 mls/hr Q20H IV Last administered on 07:00; Admin Dose 50 MLS/HR; Start 10/01/16 at 17:30 Acetaminophen (Tylenol Tab) 650 mg Q4H PRN PO PAIN AND OR ELEVATED TEMP Last administered on 10/09/16 08:43; Admin Dose 650 MG; Start 10/09/16 at 08:30 Cyclobenzaprine HCl (Flexeril) 5 mg Q8 PRN PO MUSCLE SPASMS Last administered on 10/09/16 23:07; Admin Dose 5 MG; Start 10/09/16 at 13:00 Docusate Sodium (Colace) 100 mg BID PRN PO CONSTIPATION; Start 10/10/16 at 12: 00 GIOVANNY PALM MD Oct 11, 2016 11:53
[2016-10-11 12:26] LABS: EOSINOPHILS # 0.1 10^3/ul (0.0-0.5); LYMPHOCYTES # 1.3 10^3/ul (0.8-2.9); MONOCYTE # 0.8 10^3/ul (0.3-0.9); NEUTROPHIL # 0.1 10^3/ul (1.6-7.5)
[2016-10-11 12:27] LABS: PLATELET ESTIMATE PLT APPEAR DECREASED
[2016-10-11] MEDS: SOD CHLORIDE 0.9% 1,000 ML IV SCH (17:30)
[2016-10-11 20:30] VITALS: BP 134/69; RESP 20
[2016-10-11] MEDS: AMLODIPINE 5 MG TAB PO SCH (21:20)
[2016-10-11] MEDS: DIPHENHYDRAMINE 25 MG CAP PO PRN (21:22)
[2016-10-11] MEDS: INSULIN GLARGINE [LANtus] 3 ML PEN SC SCH (21:26)
[2016-10-12] MEDS: AL HYDROX/MG HYDROX/SIMETH 30 ML CUP PO SCH ×6 (01:00→21:41)
[2016-10-12] MEDS: ACCUCHECK XX SCH (01:46)
[2016-10-12] MEDS: DEXTROSE 5%-0.9% NACL 1,000 ML IV SCH (05:00)
[2016-10-12] MEDS: PANTOPRAZOLE 40 MG INJ IV SCH ×2 (06:17→18:03)
[2016-10-12 07:04] LABS: HEMATOCRIT 25.3 % (42.0-52.0); HEMOGLOBIN 8.9 g/dl (14.0-18.0); MEAN CORPUSCULAR HEMOGLOBIN 29.7 pg (29.0-33.0); MEAN CORPUSCULAR HGB CONC 35.3 g/dl (32.0-37.0); MEAN CORPUSCULAR VOLUME 84.2 fl (82.0-101.0); MEAN PLATELET VOLUME 7.7 fl (7.4-10.4); RED CELL DISTRIBUTION WIDTH 15.1 % (11.5-14.5); UNCORRECTED WBC 2.6 10^3/ul (4.8-10.8); WHITE BLOOD COUNT 2.6 10^3/ul (4.8-10.8)
[2016-10-12 07:30] LABS: PLATELET COUNT 15 10^3/UL (140-440)
[2016-10-12 07:31] LABS: CONDITION 1; LH ANALYZER COMMENTS 1; SUSPECT 1
[2016-10-12 08:16] VITALS: BP 139/72; RESP 20
[2016-10-12] MEDS: DIPHENHYD PO SCH ×5 (08:54→21:41)
[2016-10-12] MEDS: LIDO PO SCH ×5 (08:54→21:41)
[2016-10-12] MEDS: POLYETHYLENE GLYCOL 17 GM PACKET PO SCH (08:54)
[2016-10-12] MEDS: MYLANTA PO SCH ×5 (08:54→21:41)
[2016-10-12] MEDS: SUCRALFATE 1 GM TAB PO SCH ×4 (08:59→21:40)
[2016-10-12] MEDS: ALLOPURINOL 300 MG TAB PO SCH (08:59)
[2016-10-12] MEDS: NYSTATIN SUSP 5 ML CUP PO SCH ×4 (08:59→21:41)
[2016-10-12] MEDS: FLUTICASONE 0.05% 16 GM NAS SPRAY NASAL SCH (09:00)
[2016-10-12] MEDS: INSULIN ASPART [NOVOLOG] 3 ML PEN SC SCH ×4 (09:06→21:45)
[2016-10-12 11:53] LABS: LYMPHOCYTES # 1.4 10^3/ul (0.8-2.9); MONOCYTE # 0.6 10^3/ul (0.3-0.9); NEUTROPHIL # 0.2 10^3/ul (1.6-7.5)
[2016-10-12 11:54] LABS: PLATELET ESTIMATE PLT APPEAR DECREASED
[2016-10-12] MEDS: SOD CHLORIDE 0.9% 1,000 ML IV SCH (12:50)
--- NOTE | 2016-10-12 12:59 | PN ---
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 -Pt completed 7+3 but preliminary report of Day 14 bone marrow still showed residual disease. Given patient was too weak for re-induction chemotherapy treated subsequently with Vidaza, hypomethylating agent. 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 Patient started on Vidaza -10/07/16. - Plt are currently 15K. Thrombocytopenia is partly due to chemo and partly due to residual disease. (Goal of Vidaza is palliative, patient would not be a good transplant or clinical trial candidate given his performance status and poor tolerance of induction chemotherapy requiring ICU admission) - s/p pRBCs 10/07/16 and platelets 10/08/16. Hgb now 8.9. Plt today declined to 15 from 21, may need platelet transfusion in next 48 hrs. 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 - Continue allopurinol for risk of tumor lysis for heme malignancy treatment. - Patient underwent EGD on 09/23/16 that demonstrated gastric ulcer covered by clot s/p hemoclipping, now s/p mesenteric angiogram and embolization of the left gastric artery. Hematemesis now resolved. - Patient will need to stay inpatient to await count recovery and monitor for infection, transfusions, etc. Plt goal > 50K if bleeding or procedures, > 20K if febrile, otherwise >10K. Discussed with daughter Shahla re: labs and patient condition. Subjective 24 Hr Interval Summary Free Text/Dictation dizziness and fatigue, no signs of bleeding, fevers Exam/Review of Systems Vital Signs Vitals Vital Signs Date Time Temp Pulse Resp B/P Pulse Ox O2 Delivery O2 Flow Rate FiO2 10/12/16 08:16 98.2 85 20 139/72 99 Intake and Output 10/11/16 10/11/16 10/12/16 15:00 23:00 07:00 Intake Total 960 ml 1350 ml Output Total 1300 ml 1400 ml Balance -340 ml -50 ml Exam pallor, no icterus, decreased b/s Constitutional: alert, oriented Psych: anxiety Neck: supple Respiratory: normal air movement Cardiovascular: regular rate and rhythm Gastrointestinal: soft Results Result Diagram: 10/12/16 0610 10/09/16 0445 Results 24 hrs Laboratory Tests Test 10/11/16 17:51 10/11/16 21:18 10/12/16 06:10 10/12/16 08:58 Bedside Glucose 163 158 265 H Band Neutrophils % 4.0 Basophils # 0.0 Basophils % 1.0 Blast Cells % 8.0 H Blastocytes # 0.2 Blood Morphology Comment Differential Comment MANUAL DIFF Eosinophils # 0.0 Eosinophils % 1.0 Hematocrit 25.3 L Hemoglobin 8.9 L Lymphocytes # 1.4 Lymphocytes % 53.0 H Mean Corpuscular Hemoglobin 29.7 Mean Corpuscular Hemoglobin Concent 35.3 Mean Corpuscular Volume 84.2 Mean Platelet Volume 7.7 Metamyelocytes # 0.1 Metamyelocytes % 2.0 H Monocytes # 0.6 Monocytes % 22.0 H Myelocytes # 0.0 Myelocytes % 1.0 H Neutrophils # 0.2 L Neutrophils % 8.0 L Nucleated Red Blood Cells # Nucleated Red Blood Cells % 2.0 H Platelet Count 15 #*L Platelet Estimate PLT APPEAR DECREASED Red Blood Count 3.00 L Red Cell Distribution Width 15.1 H White Blood Count 2.6 L Medications Medications Current Medications Miscellaneous Information 1 ea NOTE XX ; Start 08/31/16 at 02:00 Glucose (Glutose) 15 gm Q15M PRN PO DECREASED GLUCOSE; Start 08/31/16 at 02:00 Glucose (Glutose) 22.5 gm Q15M PRN PO DECREASED GLUCOSE; Start 08/31/16 at 02:00 Dextrose (D50w Syringe) 25 ml Q15M PRN IV DECREASED GLUCOSE Last administered on 09/25/16t 12:29; Admin Dose 25 ML; Start 08/31/16 at 02:00 Dextrose (D50w Syringe) 50 ml Q15M PRN IV DECREASED GLUCOSE; Start 08/31/16 at 02:00 Glucagon (Glucagen) 1 mg Q15M PRN IM DECREASED GLUCOSE; Start 08/31/16 at 02:00 Glucose (Glutose) 15 gm Q15M PRN BUCCAL DECREASED GLUCOSE; Start 08/31/16 at 02: 00 Fluticasone Propionate (Flonase 0.05% Nasal) 2 spray DAILY NASAL Last administered on 10/09/16 08:42; Admin Dose 2 SPRAY; Start 08/31/16 at 09:00 Ondansetron HCl (Zofran Inj) 4 mg Q6H PRN IV NAUSEA AND/OR VOMITING Last administered on 10/02/16 09:20; Admin Dose 4 MG; Start 09/01/16 at 11:30 Diphenhydramine HCl (Benadryl) 25 mg Q6H PRN PO ITCHING Last administered on 21:22; Admin Dose 25 MG; Start 09/01/16 at 11:30 Guaifenesin/ Dextromethorphan (Robitussin Dm Liquid Cup) 10 ml Q4H PRN PO COUGH Last administered on 10/01/16 20:24; Admin Dose 10 ML; Start 09/02/16 at 14:00 Allopurinol (Zyloprim) 300 mg DAILY PO Last administered on 10/12/16 08:59; Admin Dose 300 MG; Start 09/04/16 at 16:30 IV Flush (NS 10 ml) 10 ml PRN PRN IV IV PROTOCOL; Start 09/05/16 at 12:30 Bisacodyl (Dulcolax Supp) 10 mg DAILY PRN [place] CONSTIPATION; Start 09/08/16 at 12 :00 Magnesium Hydroxide (Milk Of Mag) 30 ml DAILY PRN PO CONSTIPATION Last administered on 09/09/16 06:25; Admin Dose 30 ML; Start 09/08/16 at 12:00 Polyethylene Glycol (Miralax) 17 gm DAILY PO Last administered on 10/09/16 08: 43; Admin Dose 17 GM; Start 09/08/16 at 12:00 Phenol (Cepastat Lozenge) 1 lozenge Q1H PRN [place] SORE THROAT Last administered on 09/17/16 20:16; Admin Dose 1 LOZENGE; Start 09/08/16 at 12:00 Amlodipine Besylate (Norvasc) 5 mg QHS PO Last administered on 10/11/16 21:20 ; Admin Dose 5 MG; Start 09/11/16 at 21:00 Miscellaneous Medication (Bax Susp) 30 ml QID PO Last administered on 21:22; Admin Dose 30 ML; Start 09/13/16 at 13:00 Nystatin (Nystatin Susp) 5 ml QID PO Last administered on 10/12/16 08:59; Admin Dose 5 ML; Start 09/14/16 at 17:00 Insulin Glargine (Lantus) 7.5 unit QHS SC Last administered on 10/11/16 21:26 ; Admin Dose 7.5 UNIT; Start 09/18/16 at 21:00 Diagnostic Test (Pha) (Accucheck) 1 ea 02 XX Last administered on 10/09/16 02: 13; Admin Dose 1 EA; Start 09/23/16 at 02:00 Acetaminophen 650 mg 650 mg Q6H PRN [place] PAIN OR TEMP ABOVE 38C Last administered on 09/23/16 18:24; Admin Dose 650 MG; Start 09/23/16 at 18:00 Dextrose/Sodium Chloride (D5-NS) 1,000 ml @ 50 mls/hr Q20H IV Last administered on 10/05/16 09:12; Admin Dose 50 MLS/HR; Start 09/25/16 at 13:00 Al Hydrox/Mg Hydrox/Simethicone (Mag-Al Plus) 30 ml Q4 PO Last administered on 10/12/16 06:17; Admin Dose 30 ML; Start 09/25/16 at 15:00 Pantoprazole 40 mg 40 mg BID@06,18 IV Last administered on 10/12/16 06:17; Admin Dose 40 MG; Start 09/26/16 at 18:00 Sodium Chloride (NS) 1,000 ml @ 50 mls/hr Q20H IV Last administered on 07:00; Admin Dose 50 MLS/HR; Start 10/01/16 at 17:30 Acetaminophen (Tylenol Tab) 650 mg Q4H PRN PO PAIN AND OR ELEVATED TEMP Last administered on 10/09/16 08:43; Admin Dose 650 MG; Start 10/09/16 at 08:30 Cyclobenzaprine HCl (Flexeril) 5 mg Q8 PRN PO MUSCLE SPASMS Last administered on 10/09/16 23:07; Admin Dose 5 MG; Start 10/09/16 at 13:00 Docusate Sodium (Colace) 100 mg BID PRN PO CONSTIPATION; Start 10/10/16 at 12: 00 LANNY LUX MD Oct 12, 2016 12:59
--- NOTE | 2016-10-12 16:01 | PN ---
Date/Time of Note Date/Time of Note DATE: 10/12/16 TIME: 15:59 Assessment/Plan VTE Prophylaxis VTE Prophylaxis Intervention: SCD's Lines/Catheters IV Catheter Type (from Nrs): PICC Line Central line still needed: Yes Urinary Cath still in place: No Assessment/Plan Assessment/Plan 1. 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 S/p multiple blood product transfusion including pRBCs and platelets Neutropenia resolved for now. Plts and Hb trending down, s/p pRBC and platelets over the past 3 days. Will likely need platelet transfusion in the AM as level decreased to 15. No further acute bleeding for the last 2 weeks S/p Vidaza course for palliation. Continue PT; ambulating in room and up to chair for all meals. 2. UGIB/Hematemesis: s/p EGD with hemoclipping followed by mesenteric angiogram yesterday with no source of acute bleeding found Hb has been stable since pRBC transfusion last week, platelets being kept >10K with transfusions Continue Protonix bid. Tolerating mostly soft diet due to some odynophagia/sore throat. Monitoring daily CBC. 3. Diabetes mellitus, with associated neuropathy manifest by numbness in both feet. BG better controlled. BG stable, once better po intake, increase dosing of Lantus back up to 15 units qhs if needed and continue SSI. Zofran as needed for Nausea 4. Chronic benign positional vertigo. Continue Meclizine PRN 5. Gastroesophageal reflux disease/Gastric Ulcer s/p episode of bleeding. Continue Protonix. 6. Hypertension: on Norvasc with good control. 7. Oral mucosa irritation, cold sore and odynophagia: Continue Abreva and mouth wash, Nystatin. improving 8. Muscle spasm: Flexeril prn Prophylaxis. Sequential compression devices to lower extremity for DVT prevention, PPI for GI ppx DISPOSITION: S/p induction chemo, followed by 2nd round of chemo with Vidaza, following counts, Hematology following. Subjective 24 Hr Interval Summary Free Text/Dictation No complaints. Resting in bed. Exam/Review of Systems Vital Signs Vitals Vital Signs Date Time Temp Pulse Resp B/P Pulse Ox O2 Delivery O2 Flow Rate FiO2 10/12/16 08:16 98.2 85 20 139/72 99 Intake and Output 10/11/16 10/11/16 10/12/16 14:59 22:59 06:59 Intake Total 960 ml 1350 ml Output Total 1300 ml 1400 ml Balance -340 ml -50 ml Exam Constitutional: alert, oriented Psych: no complaints Head: normocephalic Eyes: nl conjunctiva ENMT: nl external ears & nose Neck: supple Respiratory: clear to auscultation Cardiovascular: regular rate and rhythm Gastrointestinal: soft Musculoskeletal: nl extremities to inspection Results Result Diagram: 10/12/16 0610 10/09/16 0445 Results 24 hrs Laboratory Tests Test 10/11/16 17:51 10/11/16 21:18 10/12/16 06:10 10/12/16 08:58 Bedside Glucose 163 158 265 H Band Neutrophils % 4.0 Basophils # 0.0 Basophils % 1.0 Blast Cells % 8.0 H Blastocytes # 0.2 Blood Morphology Comment Differential Comment MANUAL DIFF Eosinophils # 0.0 Eosinophils % 1.0 Hematocrit 25.3 L Hemoglobin 8.9 L Lymphocytes # 1.4 Lymphocytes % 53.0 H Mean Corpuscular Hemoglobin 29.7 Mean Corpuscular Hemoglobin Concent 35.3 Mean Corpuscular Volume 84.2 Mean Platelet Volume 7.7 Metamyelocytes # 0.1 Metamyelocytes % 2.0 H Monocytes # 0.6 Monocytes % 22.0 H Myelocytes # 0.0 Myelocytes % 1.0 H Neutrophils # 0.2 L Neutrophils % 8.0 L Nucleated Red Blood Cells # Nucleated Red Blood Cells % 2.0 H Platelet Count 15 #*L Platelet Estimate PLT APPEAR DECREASED Red Blood Count 3.00 L Red Cell Distribution Width 15.1 H White Blood Count 2.6 L Test 10/12/16 13:03 Bedside Glucose 141 Medications Medications Current Medications Miscellaneous Information 1 ea NOTE XX ; Start 08/31/16 at 02:00 Glucose (Glutose) 15 gm Q15M PRN PO DECREASED GLUCOSE; Start 08/31/16 at 02:00 Glucose (Glutose) 22.5 gm Q15M PRN PO DECREASED GLUCOSE; Start 08/31/16 at 02:00 Dextrose (D50w Syringe) 25 ml Q15M PRN IV DECREASED GLUCOSE Last administered on 09/25/16t 12:29; Admin Dose 25 ML; Start 08/31/16 at 02:00 Dextrose (D50w Syringe) 50 ml Q15M PRN IV DECREASED GLUCOSE; Start 08/31/16 at 02:00 Glucagon (Glucagen) 1 mg Q15M PRN IM DECREASED GLUCOSE; Start 08/31/16 at 02:00 Glucose (Glutose) 15 gm Q15M PRN BUCCAL DECREASED GLUCOSE; Start 08/31/16 at 02: 00 Fluticasone Propionate (Flonase 0.05% Nasal) 2 spray DAILY NASAL Last administered on 10/09/16 08:42; Admin Dose 2 SPRAY; Start 08/31/16 at 09:00 Ondansetron HCl (Zofran Inj) 4 mg Q6H PRN IV NAUSEA AND/OR VOMITING Last administered on 10/02/16 09:20; Admin Dose 4 MG; Start 09/01/16 at 11:30 Diphenhydramine HCl (Benadryl) 25 mg Q6H PRN PO ITCHING Last administered on 21:22; Admin Dose 25 MG; Start 09/01/16 at 11:30 Guaifenesin/ Dextromethorphan (Robitussin Dm Liquid Cup) 10 ml Q4H PRN PO COUGH Last administered on 10/01/16 20:24; Admin Dose 10 ML; Start 09/02/16 at 14:00 Allopurinol (Zyloprim) 300 mg DAILY PO Last administered on 10/12/16 08:59; Admin Dose 300 MG; Start 09/04/16 at 16:30 IV Flush (NS 10 ml) 10 ml PRN PRN IV IV PROTOCOL; Start 09/05/16 at 12:30 Bisacodyl (Dulcolax Supp) 10 mg DAILY PRN [place] CONSTIPATION; Start 09/08/16 at 12 :00 Magnesium Hydroxide (Milk Of Mag) 30 ml DAILY PRN PO CONSTIPATION Last administered on 09/09/16 06:25; Admin Dose 30 ML; Start 09/08/16 at 12:00 Polyethylene Glycol (Miralax) 17 gm DAILY PO Last administered on 10/09/16 08: 43; Admin Dose 17 GM; Start 09/08/16 at 12:00 Phenol (Cepastat Lozenge) 1 lozenge Q1H PRN [place] SORE THROAT Last administered on 09/17/16 20:16; Admin Dose 1 LOZENGE; Start 09/08/16 at 12:00 Amlodipine Besylate (Norvasc) 5 mg QHS PO Last administered on 10/11/16 21:20 ; Admin Dose 5 MG; Start 09/11/16 at 21:00 Miscellaneous Medication (Bax Susp) 30 ml QID PO Last administered on 21:22; Admin Dose 30 ML; Start 09/13/16 at 13:00 Nystatin (Nystatin Susp) 5 ml QID PO Last administered on 10/12/16 13:04; Admin Dose 5 ML; Start 09/14/16 at 17:00 Insulin Glargine (Lantus) 7.5 unit QHS SC Last administered on 10/11/16 21:26 ; Admin Dose 7.5 UNIT; Start 09/18/16 at 21:00 Diagnostic Test (Pha) (Accucheck) 1 ea 02 XX Last administered on 10/09/16 02: 13; Admin Dose 1 EA; Start 09/23/16 at 02:00 Acetaminophen 650 mg 650 mg Q6H PRN [place] PAIN OR TEMP ABOVE 38C Last administered on 09/23/16 18:24; Admin Dose 650 MG; Start 09/23/16 at 18:00 Dextrose/Sodium Chloride (D5-NS) 1,000 ml @ 50 mls/hr Q20H IV Last administered on 10/05/16 09:12; Admin Dose 50 MLS/HR; Start 09/25/16 at 13:00 Al Hydrox/Mg Hydrox/Simethicone (Mag-Al Plus) 30 ml Q4 PO Last administered on 10/12/16 13:04; Admin Dose 30 ML; Start 09/25/16 at 15:00 Pantoprazole 40 mg 40 mg BID@06,18 IV Last administered on 10/12/16 06:17; Admin Dose 40 MG; Start 09/26/16 at 18:00 Sodium Chloride (NS) 1,000 ml @ 50 mls/hr Q20H IV Last administered on 07:00; Admin Dose 50 MLS/HR; Start 10/01/16 at 17:30 Acetaminophen (Tylenol Tab) 650 mg Q4H PRN PO PAIN AND OR ELEVATED TEMP Last administered on 10/09/16 08:43; Admin Dose 650 MG; Start 10/09/16 at 08:30 Cyclobenzaprine HCl (Flexeril) 5 mg Q8 PRN PO MUSCLE SPASMS Last administered on 10/09/16 23:07; Admin Dose 5 MG; Start 10/09/16 at 13:00 Docusate Sodium (Colace) 100 mg BID PRN PO CONSTIPATION; Start 10/10/16 at 12: 00 GIOVANNY PALM MD Oct 12, 2016 16:01
[2016-10-12 20:48] VITALS: BP 125/64; RESP 18
[2016-10-12] MEDS: AMLODIPINE 5 MG TAB PO SCH (21:40)
[2016-10-12] MEDS: DIPHENHYDRAMINE 25 MG CAP PO PRN (22:05)
[2016-10-12] MEDS: INSULIN GLARGINE [LANtus] 3 ML PEN SC SCH (22:05)
[2016-10-13] MEDS: AL HYDROX/MG HYDROX/SIMETH 30 ML CUP PO SCH ×6 (01:00→20:51)
[2016-10-13] MEDS: DEXTROSE 5%-0.9% NACL 1,000 ML IV SCH ×2 (01:00→21:00)
[2016-10-13] MEDS: ACCUCHECK XX SCH (02:00)
[2016-10-13] MEDS: PANTOPRAZOLE 40 MG INJ IV SCH ×2 (05:34→17:03)
[2016-10-13] MEDS: SUCRALFATE 1 GM TAB PO SCH ×4 (05:34→20:52)
[2016-10-13 05:39] LABS: CREATININE 0.62 mg/dl (0.61-1.24)
[2016-10-13 05:40] LABS: CALCIUM 8.9 mg/dl (8.4-10.2)
[2016-10-13 06:45] LABS: HEMOGLOBIN 8.7 g/dl (14.0-18.0); MEAN CORPUSCULAR HEMOGLOBIN 29.4 pg (29.0-33.0); MEAN CORPUSCULAR HGB CONC 34.9 g/dl (32.0-37.0); MEAN CORPUSCULAR VOLUME 84.2 fl (82.0-101.0); MEAN PLATELET VOLUME 8.9 fl (7.4-10.4); RED BLOOD COUNT 2.97 10^6/ul (4.70-6.10); UNCORRECTED WBC 2.9 10^3/ul (4.8-10.8); WHITE BLOOD COUNT 2.9 10^3/ul (4.8-10.8)
[2016-10-13 06:49] LABS: CONDITION 1; LH ANALYZER COMMENTS 1; PLATELET COUNT 9 10^3/UL (140-440); SUSPECT 1
[2016-10-13] MEDS: INSULIN ASPART [NOVOLOG] 3 ML PEN SC SCH ×4 (07:50→20:50)
[2016-10-13 08:51] VITALS: BP 121/69; RESP 18
[2016-10-13] MEDS: FLUTICASONE 0.05% 16 GM NAS SPRAY NASAL SCH (09:00)
[2016-10-13] MEDS: SOD CHLORIDE 0.9% 1,000 ML IV SCH (09:30)
[2016-10-13 10:06] LABS: EOSINOPHILS # 0.1 10^3/ul (0.0-0.5); LYMPHOCYTES # 1.5 10^3/ul (0.8-2.9); MONOCYTE # 0.9 10^3/ul (0.3-0.9); NEUTROPHIL # 0.1 10^3/ul (1.6-7.5)
[2016-10-13] MEDS: LIDO PO SCH ×4 (10:32→20:53)
[2016-10-13] MEDS: POLYETHYLENE GLYCOL 17 GM PACKET PO SCH (10:32)
[2016-10-13] MEDS: MYLANTA PO SCH ×4 (10:32→20:53)
[2016-10-13] MEDS: DIPHENHYD PO SCH ×4 (10:32→20:53)
[2016-10-13] MEDS: NYSTATIN SUSP 5 ML CUP PO SCH ×4 (10:32→20:51)
[2016-10-13] MEDS: ALLOPURINOL 300 MG TAB PO SCH (10:32)
--- NOTE | 2016-10-13 11:20 | PN ---
Date/Time of Note Date/Time of Note DATE: 10/13/16 TIME: 11:11 Assessment/Plan VTE Prophylaxis VTE Prophylaxis Intervention: SCD's Lines/Catheters IV Catheter Type (from Nrsg): PICC Line Central line still needed: Yes (for Chemo) Urinary Cath still in place: No Assessment/Plan Assessment/Plan 71 yo male with: 1. 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 S/p multiple blood product transfusion including pRBCs and platelets Neutropenia resolved for now. Plts down to 9 and getting 1 unit today and Hb stable No further acute bleeding x3 weeks S/p Vidaza course for palliation. D/c plan per Hematology, awaiting for count recovery. Continue PT 2. UGIB/Hematemesis: s/p EGD with hemoclipping followed by mesenteric angiogram yesterday with no source of acute bleeding found Hb has been stable since pRBC transfusion last week, platelets being kept >10K with transfusions, will get 1 unit platelet today. Continue Protonix bid. Tolerating mostly soft diet due to some odynophagia/sore throat. Monitoring CBC. 3. Diabetes mellitus, with associated neuropathy manifest by numbness in both feet. BG better controlled. BG stable, once better po intake, increase dosing of Lantus back up to 15 units qhs if needed and continue SSI. For now on 8 units Lantus Zofran as needed for Nausea 4. Chronic benign positional vertigo. Continue Meclizine PRN 5. Gastroesophageal reflux disease/Gastric Ulcer s/p episode of bleeding. Continue Protonix. 6. Muscle spasm: Flexeril prn 7. Hypertension: continue Norvasc Prophylaxis. Sequential compression devices to lower extremity for DVT prevention, PPI for GI ppx DISPOSITION: S/p induction chemo, followed by 2nd round of chemo with Vidaza, following counts, Hematology following. Subjective 24 Hr Interval Summary Free Text/Dictation Patient doing Ok and remains stable To get 1 unit platelets today Continue PT and f/u further recs from hematology Exam/Review of Systems Vital Signs Vitals Vital Signs Date Time Temp Pulse Resp B/P Pulse Ox O2 Delivery O2 Flow Rate FiO2 10/13/16 08:51 97.9 80 18 121/69 100 Intake and Output 2/19/17 2/19/17 2/20/17 15:00 23:00 07:00 Intake Total 1260 ml 1420 ml Output Total 1100 ml 1000 ml Balance 160 ml 420 ml Exam Constitutional: alert, oriented, well developed Respiratory: clear to auscultation, normal air movement Cardiovascular: nl pulses, regular rate and rhythm Gastrointestinal: non-tender, soft Musculoskeletal: nl extremities to inspection Extremities: normal pulses, other (no edema, clubbing or cyanosis ) Neurological: [employer]ING [employer]ED[employer]ER II-XII intact, nl mental status, nl speech, nl strength Results Result Diagram: 10/13/1644410/13/16444 Results 24 hrs Laboratory Tests Test 10/12/16 13:03 10/12/16 18:02 10/12/16 21:34 10/13/16 03:10 Bedside Glucose 141 196 198 109 Test 10/13/16 04:45 Anion Gap 12 Basophils # Basophils % Blast Cells % 10.0 H Blastocytes # 0.3 Blood Morphology Comment Blood Urea Nitrogen 12 Calcium Level 8.9 Carbon Dioxide Level 31 Chloride Level 100 Creatinine 0.62 Eosinophils # 0.1 Eosinophils % 4.0 Glucose Level 115 Hematocrit 25.0 L Hemoglobin 8.7 L Lymphocytes # 1.5 Lymphocytes % 51.0 Magnesium Level 2.0 Mean Corpuscular Hemoglobin 29.4 Mean Corpuscular Hemoglobin Concent 34.9 Mean Corpuscular Volume 84.2 Mean Platelet Volume 8.9 Metamyelocytes # 0.0 Metamyelocytes % 1.0 H Monocytes # 0.9 Monocytes % 31.0 H Myelocytes # 0.0 Myelocytes % 1.0 H Neutrophils # 0.1 L Neutrophils % 2.0 L Nucleated Red Blood Cells # Nucleated Red Blood Cells % 1.0 H Platelet Count 9 #*L Potassium Level 4.0 Red Blood Count 2.97 L Red Cell Distribution Width 15.0 H Sodium Level 139 White Blood Count 2.9 L Medications Medications Current Medications Miscellaneous Information 1 ea NOTE XX ; Start 08/31/16 at 02:00 Glucose (Glutose) 15 gm Q15M PRN PO DECREASED GLUCOSE; Start 08/31/16 at 02:00 Glucose (Glutose) 22.5 gm Q15M PRN PO DECREASED GLUCOSE; Start 08/31/16 at 02:00 Dextrose (D50w Syringe) 25 ml Q15M PRN IV DECREASED GLUCOSE Last administered on 09/25/16 12:29; Admin Dose 25 ML; Start 08/31/16 at 02:00 Dextrose (D50w Syringe) 50 ml Q15M PRN IV DECREASED GLUCOSE; Start 08/31/16 at 02:00 Glucagon (Glucagen) 1 mg Q15M PRN IM DECREASED GLUCOSE; Start 08/31/16 at 02:00 Glucose (Glutose) 15 gm Q15M PRN BUCCAL DECREASED GLUCOSE; Start 08/31/16 at 02: 00 Fluticasone Propionate (Flonase 0.05% Nasal) 2 spray DAILY NASAL Last administered on 10/09/16 08:42; Admin Dose 2 SPRAY; Start 08/31/16 at 09:00 Ondansetron HCl (Zofran Inj) 4 mg Q6H PRN IV NAUSEA AND/OR VOMITING Last administered on 10/02/16 09:20; Admin Dose 4 MG; Start 09/01/16 at 11:30 Diphenhydramine HCl (Benadryl) 25 mg Q6H PRN PO ITCHING Last administered on 22:05; Admin Dose 25 MG; Start 09/01/16 at 11:30 Guaifenesin/ Dextromethorphan (Robitussin Dm Liquid Cup) 10 ml Q4H PRN PO COUGH Last administered on 10/01/16 20:24; Admin Dose 10 ML; Start 09/02/16 at 14:00 Allopurinol (Zyloprim) 300 mg DAILY PO Last administered on 10/13/16 10:32; Admin Dose 300 MG; Start 09/04/16 at 16:30 IV Flush (NS 10 ml) 10 ml PRN PRN IV IV PROTOCOL; Start 09/05/16 at 12:30 Bisacodyl (Dulcolax Supp) 10 mg DAILY PRN [place] CONSTIPATION; Start 09/08/16 at 12 :00 Magnesium Hydroxide (Milk Of Mag) 30 ml DAILY PRN PO CONSTIPATION Last administered on 09/09/16 06:25; Admin Dose 30 ML; Start 09/08/16 at 12:00 Polyethylene Glycol (Miralax) 17 gm DAILY PO Last administered on 10/13/16 10: 32; Admin Dose 17 GM; Start 09/08/16 at 12:00 Phenol (Cepastat Lozenge) 1 lozenge Q1H PRN [place] SORE THROAT Last administered on 09/17/16 20:16; Admin Dose 1 LOZENGE; Start 09/08/16 at 12:00 Amlodipine Besylate (Norvasc) 5 mg QHS PO Last administered on 10/12/16 21:40 ; Admin Dose 5 MG; Start 09/11/16 at 21:00 Miscellaneous Medication (Bax Susp) 30 ml QID PO Last administered on 10:32; Admin Dose 30 ML; Start 09/13/16 at 13:00 Nystatin (Nystatin Susp) 5 ml QID PO Last administered on 10/13/16 10:32; Admin Dose 5 ML; Start 09/14/16 at 17:00 Diagnostic Test (Pha) (Accucheck) 1 ea 02 XX Last administered on 10/13/16 02: 00; Admin Dose 1 EA; Start 09/23/16 at 02:00 Acetaminophen 650 mg 650 mg Q6H PRN [place] PAIN OR TEMP ABOVE 38C Last administered on 09/23/16 18:24; Admin Dose 650 MG; Start 09/23/16 at 18:00 Dextrose/Sodium Chloride (D5-NS) 1,000 ml @ 50 mls/hr Q20H IV Last administered on 10/05/16 09:12; Admin Dose 50 MLS/HR; Start 09/25/16 at 13:00 Al Hydrox/Mg Hydrox/Simethicone (Mag-Al Plus) 30 ml Q4 PO Last administered on 10/13/16 10:32; Admin Dose 30 ML; Start 09/25/16 at 15:00 Pantoprazole 40 mg 40 mg BID@06,18 IV Last administered on 10/13/16 05:34; Admin Dose 40 MG; Start 09/26/16 at 18:00 Sodium Chloride (NS) 1,000 ml @ 50 mls/hr Q20H IV Last administered on 07:00; Admin Dose 50 MLS/HR; Start 10/01/16 at 17:30 Acetaminophen (Tylenol Tab) 650 mg Q4H PRN PO PAIN AND OR ELEVATED TEMP Last administered on 10/09/16 08:43; Admin Dose 650 MG; Start 10/09/16 at 08:30 Cyclobenzaprine HCl (Flexeril) 5 mg Q8 PRN PO MUSCLE SPASMS Last administered on 10/09/16 23:07; Admin Dose 5 MG; Start 10/09/16 at 13:00 Docusate Sodium (Colace) 100 mg BID PRN PO CONSTIPATION; Start 10/10/16 at 12: 00 Insulin Glargine (Lantus) 8 unit DAILY@20 SC Last administered on 10/12/16 22: 05; Admin Dose 8 UNIT; Start 10/12/16 at 22:00 TAM ROSE Oct 13, 2016 11:20
--- NOTE | 2016-10-13 15:17 | CONS ---
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 Pt has completed 7+3 and tolerated chemotherapy well thus far. Preliminary report of Day 14 bone marrow still shows residual disease. Given patient is too weak for re-induction chemotherapy will proceed with Vidaza, hypomethylating agent when patient counts recover. 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 Patient started on Vidaza -10/07/16. - Plt are currently 9K. Thrombocytopenia is partly due to chemo and partly due to residual disease. (Goal of Vidaza is palliative, patient would not be a good transplant or clinical trial candidate given his performance status and poor tolerance of induction chemotherapy requiring ICU admission) - Patient needs to stay inpatient given transfusion dependence. Will given 1 units of platelets today. - Continue allopurinol for risk of tumor lysis for heme malignancy treatment. - Patient underwent EGD on 09/23/16 that demonstrated gastric ulcer covered by clot s/p hemoclipping, now s/p mesenteric angiogram and embolization of the left gastric artery. Hematemesis now resolved. - Patient will need to stay inpatient to await count recovery and monitor for infection, transfusions, etc. Plt goal > 50K if bleeding or procedures, > 20K if febrile, otherwise >10K. Discussed with daughter Shahla re: labs and patient condition Consultation Date/Type/Reason Admit Date/Time Aug 31, 2016 at 00:38 Initial Consult Date 09/02/16 Type of Consultation: Hematology/Oncology Reason for Consultation AML Referring Provider: TAM ROSE 24 HR Interval Summary Free Text/Dictation platelets fell to 9 yesterday. to get 1 unit of platelets today. no evidence of bleed. no fevers Exam/Review of Systems Vital Signs Vitals Vital Signs Date Time Temp Pulse Resp B/P Pulse Ox O2 Delivery O2 Flow Rate FiO2 10/13/16 08:51 97.9 80 18 121/69 100 Intake and Output 10/12/16 10/12/16 10/13/16 15:00 23:00 07:00 Intake Total 1260 ml 1420 ml Output Total 1100 ml 1000 ml Balance 160 ml 420 ml Exam Constitutional: alert Psych: nl mood/affect, no complaints Head: normocephalic Eyes: nl conjunctiva ENMT: nl external ears & nose Neck: non-tender Respiratory: clear to auscultation, normal air movement Cardiovascular: nl pulses, regular rate and rhythm Gastrointestinal: soft Musculoskeletal: nl extremities to inspection, nl gait and stance Extremities: normal pulses Neurological: [employer] II-XII intact Results Result Diagram: 10/13/1644410/13/16444 Results 24 hrs Laboratory Tests Test 10/12/16 18:02 10/12/16 21:34 10/13/16 03:10 10/13/16 04:45 Bedside Glucose 196 198 109 Anion Gap 12 Basophils # Basophils % Blast Cells % 10.0 H Blastocytes # 0.3 Blood Morphology Comment Blood Urea Nitrogen 12 Calcium Level 8.9 Carbon Dioxide Level 31 Chloride Level 100 Creatinine 0.62 Eosinophils # 0.1 Eosinophils % 4.0 Glucose Level 115 Hematocrit 25.0 L Hemoglobin 8.7 L Lymphocytes # 1.5 Lymphocytes % 51.0 Magnesium Level 2.0 Mean Corpuscular Hemoglobin 29.4 Mean Corpuscular Hemoglobin Concent 34.9 Mean Corpuscular Volume 84.2 Mean Platelet Volume 8.9 Metamyelocytes # 0.0 Metamyelocytes % 1.0 H Monocytes # 0.9 Monocytes % 31.0 H Myelocytes # 0.0 Myelocytes % 1.0 H Neutrophils # 0.1 L Neutrophils % 2.0 L Nucleated Red Blood Cells # Nucleated Red Blood Cells % 1.0 H Platelet Count 9 #*L Potassium Level 4.0 Red Blood Count 2.97 L Red Cell Distribution Width 15.0 H Sodium Level 139 White Blood Count 2.9 L Medications Medications Current Medications Miscellaneous Information 1 ea NOTE XX ; Start 08/31/16 at 02:00 Glucose (Glutose) 15 gm Q15M PRN PO DECREASED GLUCOSE; Start 08/31/16 at 02:00 Glucose (Glutose) 22.5 gm Q15M PRN PO DECREASED GLUCOSE; Start 08/31/16 at 02:00 Dextrose (D50w Syringe) 25 ml Q15M PRN IV DECREASED GLUCOSE Last administered on 09/25/16 12:29; Admin Dose 25 ML; Start 08/31/16 at 02:00 Dextrose (D50w Syringe) 50 ml Q15M PRN IV DECREASED GLUCOSE; Start 08/31/16 at 02:00 Glucagon (Glucagen) 1 mg Q15M PRN IM DECREASED GLUCOSE; Start 08/31/16 at 02:00 Glucose (Glutose) 15 gm Q15M PRN BUCCAL DECREASED GLUCOSE; Start 08/31/16 at 02: 00 Fluticasone Propionate (Flonase 0.05% Nasal) 2 spray DAILY NASAL Last administered on 10/09/16 08:42; Admin Dose 2 SPRAY; Start 08/31/16 at 09:00 Ondansetron HCl (Zofran Inj) 4 mg Q6H PRN IV NAUSEA AND/OR VOMITING Last administered on 10/02/16 09:20; Admin Dose 4 MG; Start 09/01/16 at 11:30 Diphenhydramine HCl (Benadryl) 25 mg Q6H PRN PO ITCHING Last administered on 22:05; Admin Dose 25 MG; Start 09/01/16 at 11:30 Guaifenesin/ Dextromethorphan (Robitussin Dm Liquid Cup) 10 ml Q4H PRN PO COUGH Last administered on 10/01/16 20:24; Admin Dose 10 ML; Start 09/02/16 at 14:00 Allopurinol (Zyloprim) 300 mg DAILY PO Last administered on 10/13/16 10:32; Admin Dose 300 MG; Start 09/04/16 at 16:30 IV Flush (NS 10 ml) 10 ml PRN PRN IV IV PROTOCOL; Start 09/05/16 at 12:30 Bisacodyl (Dulcolax Supp) 10 mg DAILY PRN [place]ST[place]; Start 09/08/16 at 12 :00 Magnesium Hydroxide (Milk Of Mag) 30 ml DAILY PRN PO CONSTIPATION Last administered on 09/09/16 06:25; Admin Dose 30 ML; Start 09/08/16 at 12:00 Polyethylene Glycol (Miralax) 17 gm DAILY PO Last administered on 10/13/16 10: 32; Admin Dose 17 GM; Start 09/08/16 at 12:00 Phenol (Cepastat Lozenge) 1 lozenge Q1H PRN [place] SORE THROAT Last administered on 09/17/16 20:16; Admin Dose 1 LOZENGE; Start 09/08/16 at 12:00 Amlodipine Besylate (Norvasc) 5 mg QHS PO Last administered on 10/12/16 21:40 ; Admin Dose 5 MG; Start 09/11/16 at 21:00 Miscellaneous Medication (Bax Susp) 30 ml QID PO Last administered on 10:32; Admin Dose 30 ML; Start 09/13/16 at 13:00 Nystatin (Nystatin Susp) 5 ml QID PO Last administered on 10/13/16 10:32; Admin Dose 5 ML; Start 09/14/16 at 17:00 Diagnostic Test (Pha) (Accucheck) 1 ea 02 XX Last administered on 10/13/16 02: 00; Admin Dose 1 EA; Start 09/23/16 at 02:00 Acetaminophen 650 mg 650 mg Q6H PRN IN PAIN OR TEMP ABOVE 38C Last administered on 09/23/16 18:24; Admin Dose 650 MG; Start 09/23/16 at 18:00 Dextrose/Sodium Chloride (D5-NS) 1,000 ml @ 50 mls/hr Q20H IV Last administered on 10/05/16 09:12; Admin Dose 50 MLS/HR; Start 09/25/16 at 13:00 Al Hydrox/Mg Hydrox/Simethicone (Mag-Al Plus) 30 ml Q4 PO Last administered on 10/13/16 10:32; Admin Dose 30 ML; Start 09/25/16 at 15:00 Pantoprazole 40 mg 40 mg BID@06,18 IV Last administered on 10/13/16 05:34; Admin Dose 40 MG; Start 09/26/16 at 18:00 Sodium Chloride (NS) 1,000 ml @ 50 mls/hr Q20H IV Last administered on 07:00; Admin Dose 50 MLS/HR; Start 10/01/16 at 17:30 Acetaminophen (Tylenol Tab) 650 mg Q4H PRN PO PAIN AND OR ELEVATED TEMP Last administered on 10/09/16 08:43; Admin Dose 650 MG; Start 10/09/16 at 08:30 Cyclobenzaprine HCl (Flexeril) 5 mg Q8 PRN PO MUSCLE SPASMS Last administered on 10/09/16 23:07; Admin Dose 5 MG; Start 10/09/16 at 13:00 Docusate Sodium (Colace) 100 mg BID PRN PO CONSTIPATION; Start 10/10/16 at 12: 00 Insulin Glargine (Lantus) 8 unit DAILY@20 SC Last administered on 10/12/16 22: 05; Admin Dose 8 UNIT; Start 10/12/16 at 22:00 MISHA FOREMAN M.D. Oct 13, 2016 15:17
[2016-10-13 19:42] VITALS: BP 136/67; RESP 18
[2016-10-13] MEDS ORDERED: INSULIN GLARGINE [LANtus] 3 ML PEN SC SCH (20:00)
[2016-10-13] MEDS: INSULIN GLARGINE [LANtus] 3 ML PEN SC SCH (20:51)
[2016-10-13] MEDS: AMLODIPINE 5 MG TAB PO SCH (20:52)
[2016-10-13] MEDS: DIPHENHYDRAMINE 25 MG CAP PO PRN (20:57)
[2016-10-14] MEDS: AL HYDROX/MG HYDROX/SIMETH 30 ML CUP PO SCH ×6 (01:00→20:29)
[2016-10-14] MEDS: ACCUCHECK XX SCH (02:12)
[2016-10-14] MEDS: PANTOPRAZOLE 40 MG INJ IV SCH ×2 (04:57→18:19)
[2016-10-14] MEDS: SOD CHLORIDE 0.9% 1,000 ML IV SCH (05:08)
[2016-10-14 05:47] LABS: POTASSIUM 4.5 mmol/L (3.5-5.1)
[2016-10-14 05:50] LABS: CREATININE 0.6 mg/dl (0.61-1.24)
[2016-10-14 05:51] LABS: CALCIUM 8.6 mg/dl (8.4-10.2)
[2016-10-14 05:56] LABS: HEMATOCRIT 22.7 % (42.0-52.0); MEAN CORPUSCULAR HEMOGLOBIN 29.5 pg (29.0-33.0); MEAN CORPUSCULAR HGB CONC 35.1 g/dl (32.0-37.0); MEAN CORPUSCULAR VOLUME 83.9 fl (82.0-101.0); MEAN PLATELET VOLUME 7.3 fl (7.4-10.4); PLATELET COUNT 47 10^3/UL (140-440); RED BLOOD COUNT 2.71 10^6/ul (4.70-6.10); RED CELL DISTRIBUTION WIDTH 14.9 % (11.5-14.5)
[2016-10-14 06:06] LABS: CONDITION 1; LH ANALYZER COMMENTS 1; SUSPECT 1
[2016-10-14 07:38] VITALS: BP 131/66; RESP 15
[2016-10-14] MEDS: INSULIN ASPART [NOVOLOG] 3 ML PEN SC SCH ×4 (07:50→20:37)
[2016-10-14] MEDS: DIPHENHYD PO SCH ×4 (09:00→20:29)
[2016-10-14] MEDS: SUCRALFATE 1 GM TAB PO SCH ×4 (09:00→20:30)
[2016-10-14] MEDS: LIDO PO SCH ×4 (09:00→20:29)
[2016-10-14] MEDS: FLUTICASONE 0.05% 16 GM NAS SPRAY NASAL SCH (09:00)
[2016-10-14] MEDS: ALLOPURINOL 300 MG TAB PO SCH (09:00)
[2016-10-14] MEDS: MYLANTA PO SCH ×4 (09:00→20:29)
[2016-10-14] MEDS: POLYETHYLENE GLYCOL 17 GM PACKET PO SCH (09:01)
[2016-10-14] MEDS: NYSTATIN SUSP 5 ML CUP PO SCH ×4 (09:01→20:30)
[2016-10-14 09:37] LABS: ANISOCYTOSIS 1+; EOSINOPHILS # 0.2 10^3/ul (0.0-0.5); LYMPHOCYTES # 1.8 10^3/ul (0.8-2.9); MONOCYTE # 0.9 10^3/ul (0.3-0.9); NEUTROPHIL # 0.1 10^3/ul (1.6-7.5)
--- NOTE | 2016-10-14 11:21 | PN ---
Date/Time of Note Date/Time of Note DATE: 10/14/16 TIME: 11:09 Assessment/Plan VTE Prophylaxis VTE Prophylaxis Intervention: SCD's Lines/Catheters IV Catheter Type (from Nrs): PICC Line Central line still needed: Yes (for IV access ) Urinary Cath still in place: No Assessment/Plan Assessment/Plan 71 yo male with: 1. 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 S/p multiple blood product transfusion including pRBCs and platelets Neutropenia resolved for now. Plts down to 9 and s/p 1unit yesterday and Hb stable No further acute bleeding x3 weeks a least S/p Vidaza course for palliation. D/c plan per Hematology, awaiting for count recovery. Continue PT 2. UGIB/Hematemesis: s/p EGD with hemoclipping followed by mesenteric angiogram yesterday with no source of acute bleeding found Hb has been stable since pRBC transfusion last week, platelets being kept >10K with transfusions. Continue Protonix bid. Tolerating mostly soft diet due to some odynophagia/sore throat. Monitoring CBC. 3. Diabetes mellitus, with associated neuropathy manifest by numbness in both feet. BG better controlled. BG stable, once better po intake, increase dosing of Lantus back up to 15 units qhs if needed and continue SSI. For now on 8 units Lantus Zofran as needed for Nausea 4. Chronic benign positional vertigo. Continue Meclizine PRN 5. Gastroesophageal reflux disease/Gastric Ulcer s/p episode of bleeding. Continue Protonix. 6. Muscle spasm: Flexeril prn 7. Hypertension: continue Norvasc Prophylaxis. Sequential compression devices to lower extremity for DVT prevention, PPI for GI ppx DISPOSITION: S/p induction chemo, followed by 2nd round of chemo with Vidaza, following counts, Hematology following. Subjective 24 Hr Interval Summary Free Text/Dictation Patient in good spirits Plts up today Awaiting clearance form Hematology/count recovery for d/c plan Exam/Review of Systems Vital Signs Vitals Vital Signs Date Time Temp Pulse Resp B/P Pulse Ox O2 Delivery O2 Flow Rate FiO2 10/14/16 07:38 98.2 78 15 131/66 100 Intake and Output 2/20/17 2/20/17 2/21/17 15:00 23:00 07:00 Intake Total 740 ml Output Total 800 ml Balance -60 ml Exam Constitutional: alert, oriented, well developed Respiratory: clear to auscultation, normal air movement Cardiovascular: nl pulses, regular rate and rhythm Gastrointestinal: non-tender, soft Musculoskeletal: nl extremities to inspection, nl gait and stance Extremities: normal pulses, other (no edema, clubbing or cyanosis ) 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, nl mental status, nl speech, other (much stronger ) Results Result Diagram: 10/14/16 0440 10/14/16 0440 Results 24 hrs Laboratory Tests Test 10/13/16 12:19 10/13/16 16:59 10/13/16 20:46 10/14/16 02:05 Bedside Glucose 274 H 167 232 H 162 Test 10/14/16 04:40 10/14/16 08:35 Anion Gap 10 Anisocytosis 1+ Band Neutrophils % 1.0 Basophils # 0.0 Basophils % 1.0 Blast Cells % 2.0 H Blastocytes # 0.1 Blood Morphology Comment Blood Urea Nitrogen 8 Calcium Level 8.6 Carbon Dioxide Level 30 Chloride Level 100 Creatinine 0.60 L Eosinophils # 0.2 Eosinophils % 5.0 Glucose Level 184 Hematocrit 22.7 L Hemoglobin 8.0 L Lymphocytes # 1.8 Lymphocytes % 59.0 H Magnesium Level 1.7 Mean Corpuscular Hemoglobin 29.5 Mean Corpuscular Hemoglobin Concent 35.1 Mean Corpuscular Volume 83.9 Mean Platelet Volume 7.3 L Monocytes # 0.9 Monocytes % 29.0 H Neutrophils # 0.1 L Neutrophils % 3.0 L Nucleated Red Blood Cells # Nucleated Red Blood Cells % Platelet Count 47 #L Potassium Level 4.5 Red Blood Count 2.71 L Red Cell Distribution Width 14.9 H Sodium Level 135 White Blood Count 3.0 L Bedside Glucose 113 Medications Medications Current Medications Miscellaneous Information 1 ea NOTE XX ; Start 08/31/16 at 02:00 Glucose (Glutose) 15 gm Q15M PRN PO DECREASED GLUCOSE; Start 08/31/16 at 02:00 Glucose (Glutose) 22.5 gm Q15M PRN PO DECREASED GLUCOSE; Start 08/31/16 at 02:00 Dextrose (D50w Syringe) 25 ml Q15M PRN IV DECREASED GLUCOSE Last administered on 09/25/16 12:29; Admin Dose 25 ML; Start 08/31/16 at 02:00 Dextrose (D50w Syringe) 50 ml Q15M PRN IV DECREASED GLUCOSE; Start 08/31/16 at 02:00 Glucagon (Glucagen) 1 mg Q15M PRN IM DECREASED GLUCOSE; Start 08/31/16 at 02:00 Glucose (Glutose) 15 gm Q15M PRN BUCCAL DECREASED GLUCOSE; Start 08/31/16 at 02: 00 Fluticasone Propionate (Flonase 0.05% Nasal) 2 spray DAILY NASAL Last administered on 10/09/16 08:42; Admin Dose 2 SPRAY; Start 08/31/16 at 09:00 Ondansetron HCl (Zofran Inj) 4 mg Q6H PRN IV NAUSEA AND/OR VOMITING Last administered on 10/02/16 09:20; Admin Dose 4 MG; Start 09/01/16 at 11:30 Diphenhydramine HCl (Benadryl) 25 mg Q6H PRN PO ITCHING Last administered on 20:57; Admin Dose 25 MG; Start 09/01/16 at 11:30 Guaifenesin/ Dextromethorphan (Robitussin Dm Liquid Cup) 10 ml Q4H PRN PO COUGH Last administered on 10/01/16 20:24; Admin Dose 10 ML; Start 09/02/16 at 14:00 Allopurinol (Zyloprim) 300 mg DAILY PO Last administered on 10/14/16 09:00; Admin Dose 300 MG; Start 09/04/16 at 16:30 IV Flush (NS 10 ml) 10 ml PRN PRN IV IV PROTOCOL; Start 09/05/16 at 12:30 Bisacodyl (Dulcolax Supp) 10 mg DAILY PRN [place] CONSTIPATION; Start 09/08/16 at 12 :00 Magnesium Hydroxide (Milk Of Mag) 30 ml DAILY PRN PO CONSTIPATION Last administered on 09/09/16 06:25; Admin Dose 30 ML; Start 09/08/16 at 12:00 Polyethylene Glycol (Miralax) 17 gm DAILY PO Last administered on 10/14/16 09: 01; Admin Dose 17 GM; Start 09/08/16 at 12:00 Phenol (Cepastat Lozenge) 1 lozenge Q1H PRN [place] SORE THROAT Last administered on 09/17/16 20:16; Admin Dose 1 LOZENGE; Start 09/08/16 at 12:00 Amlodipine Besylate (Norvasc) 5 mg QHS PO Last administered on 10/13/16 20:52 ; Admin Dose 5 MG; Start 09/11/16 at 21:00 Miscellaneous Medication (Bax Susp) 30 ml QID PO Last administered on 09:00; Admin Dose 30 ML; Start 09/13/16 at 13:00 Nystatin (Nystatin Susp) 5 ml QID PO Last administered on 10/14/16 09:01; Admin Dose 5 ML; Start 09/14/16 at 17:00 Diagnostic Test (Pha) (Accucheck) 1 ea 02 XX Last administered on 10/14/16 02: 12; Admin Dose 1 EA; Start 09/23/16 at 02:00 Acetaminophen 650 mg 650 mg Q6H PRN [place] PAIN OR TEMP ABOVE 38C Last administered on 09/23/16 18:24; Admin Dose 650 MG; Start 09/23/16 at 18:00 Dextrose/Sodium Chloride (D5-NS) 1,000 ml @ 50 mls/hr Q20H IV Last administered on 10/05/16 09:12; Admin Dose 50 MLS/HR; Start 09/25/16 at 13:00 Al Hydrox/Mg Hydrox/Simethicone (Mag-Al Plus) 30 ml Q4 PO Last administered on 10/14/16 09:01; Admin Dose 30 ML; Start 09/25/16 at 15:00 Pantoprazole 40 mg 40 mg BID@06,18 IV Last administered on 10/14/16 04:57; Admin Dose 40 MG; Start 09/26/16 at 18:00 Sodium Chloride (NS) 1,000 ml @ 50 mls/hr Q20H IV Last administered on 07:00; Admin Dose 50 MLS/HR; Start 10/01/16 at 17:30 Acetaminophen (Tylenol Tab) 650 mg Q4H PRN PO PAIN AND OR ELEVATED TEMP Last administered on 10/09/16 08:43; Admin Dose 650 MG; Start 10/09/16 at 08:30 Cyclobenzaprine HCl (Flexeril) 5 mg Q8 PRN PO MUSCLE SPASMS Last administered on 10/09/16 23:07; Admin Dose 5 MG; Start 10/09/16 at 13:00 Docusate Sodium (Colace) 100 mg BID PRN PO CONSTIPATION; Start 10/10/16 at 12: 00 Insulin Glargine (Lantus) 8 unit DAILY@20 SC Last administered on 10/13/16 20: 51; Admin Dose 8 UNIT; Start 10/12/16 at 22:00 TAM ROSE Oct 14, 2016 11:19
[2016-10-14] MEDS: DEXTROSE 5%-0.9% NACL 1,000 ML IV SCH (17:00)
--- NOTE | 2016-10-14 17:03 | PN ---
Date/Time of Note Date/Time of Note DATE: 10/14/16 TIME: 16:52 Assessment/Plan VTE Prophylaxis VTE Prophylaxis Intervention: other (low platelets) Lines/Catheters [facility] PICC Line Central line still needed: Yes Urinary Cath still in place: No Assessment/Plan Assessment/Plan Pancytopenia is improving. WBC is up to 3.0 albeit ANC is still very low. Platelets are 47 but this reflects the platelet transfusion given yesterday. Continue to monitor blood but no transfusion today. Subjective 24 Hr Interval Summary Free Text/Dictation Pt is comfortable. Anxious to go home. Exam/Review of Systems Vital Signs Vitals Vital Signs Date Time Temp Pulse Resp B/P Pulse Ox O2 Delivery O2 Flow Rate FiO2 10/14/16 07:38 98.2 78 15 131/66 100 Intake and Output 10/13/16 10/13/16 10/14/16 15:00 23:00 07:00 Intake Total 740 ml Output Total 800 ml Balance -60 ml Exam Constitutional: alert, oriented Psych: no complaints Respiratory: clear to auscultation Cardiovascular: regular rate and rhythm Results Result Diagram: 10/14/160 10/14/16 0440 Results 24 hrs Laboratory Tests Test 10/13/16 16:59 10/13/16 20:46 10/14/16 02:05 10/14/16 04:40 Bedside Glucose 167 232 H 162 Anion Gap 10 Anisocytosis 1+ Band Neutrophils % 1.0 Basophils # 0.0 Basophils % 1.0 Blast Cells % 2.0 H Blastocytes # 0.1 Blood Morphology Comment Blood Urea Nitrogen 8 Calcium Level 8.6 Carbon Dioxide Level 30 Chloride Level 100 Creatinine 0.60 L Eosinophils # 0.2 Eosinophils % 5.0 Glucose Level 184 Hematocrit 22.7 L Hemoglobin 8.0 L Lymphocytes # 1.8 Lymphocytes % 59.0 H Magnesium Level 1.7 Mean Corpuscular Hemoglobin 29.5 Mean Corpuscular Hemoglobin Concent 35.1 Mean Corpuscular Volume 83.9 Mean Platelet Volume 7.3 L Monocytes # 0.9 Monocytes % 29.0 H Neutrophils # 0.1 L Neutrophils % 3.0 L Nucleated Red Blood Cells # Nucleated Red Blood Cells % Platelet Count 47 #L Potassium Level 4.5 Red Blood Count 2.71 L Red Cell Distribution Width 14.9 H Sodium Level 135 White Blood Count 3.0 L Test 10/14/16 08:35 10/14/16 12:16 Bedside Glucose 113 167 Medications Medications Current Medications Miscellaneous Information 1 ea NOTE XX ; Start 08/31/16 at 02:00 Glucose (Glutose) 15 gm Q15M PRN PO DECREASED GLUCOSE; Start 08/31/16 at 02:00 Glucose (Glutose) 22.5 gm Q15M PRN PO DECREASED GLUCOSE; Start 08/31/16 at 02:00 Dextrose (D50w Syringe) 25 ml Q15M PRN IV DECREASED GLUCOSE Last administered on 09/25/16 12:29; Admin Dose 25 ML; Start 08/31/16 at 02:00 Dextrose (D50w Syringe) 50 ml Q15M PRN IV DECREASED GLUCOSE; Start 08/31/16 at 02:00 Glucagon (Glucagen) 1 mg Q15M PRN IM DECREASED GLUCOSE; Start 08/31/16 at 02:00 Glucose (Glutose) 15 gm Q15M PRN BUCCAL DECREASED GLUCOSE; Start 08/31/16 at 02: 00 Fluticasone Propionate (Flonase 0.05% Nasal) 2 spray DAILY NASAL Last administered on 10/09/16 08:42; Admin Dose 2 SPRAY; Start 08/31/16 at 09:00 Ondansetron HCl (Zofran Inj) 4 mg Q6H PRN IV NAUSEA AND/OR VOMITING Last administered on 10/02/16 09:20; Admin Dose 4 MG; Start 09/01/16 at 11:30 Diphenhydramine HCl (Benadryl) 25 mg Q6H PRN PO ITCHING Last administered on 20:57; Admin Dose 25 MG; Start 09/01/16 at 11:30 Guaifenesin/ Dextromethorphan (Robitussin Dm Liquid Cup) 10 ml Q4H PRN PO COUGH Last administered on 10/01/16 20:24; Admin Dose 10 ML; Start 09/02/16 at 14:00 Allopurinol (Zyloprim) 300 mg DAILY PO Last administered on 10/14/16 09:00; Admin Dose 300 MG; Start 09/04/16 at 16:30 IV Flush (NS 10 ml) 10 ml PRN PRN IV IV PROTOCOL; Start 09/05/16 at 12:30 Bisacodyl (Dulcolax Supp) 10 mg DAILY PRN [place] CONSTIPATION; Start 09/08/16 at 12 :00 Magnesium Hydroxide (Milk Of Mag) 30 ml DAILY PRN PO CONSTIPATION Last administered on 09/09/16 06:25; Admin Dose 30 ML; Start 09/08/16 at 12:00 Polyethylene Glycol (Miralax) 17 gm DAILY PO Last administered on 10/14/16 09: 01; Admin Dose 17 GM; Start 09/08/16 at 12:00 Phenol (Cepastat Lozenge) 1 lozenge Q1H PRN [place] SORE THROAT Last administered on 09/17/16 20:16; Admin Dose 1 LOZENGE; Start 09/08/16 at 12:00 Amlodipine Besylate (Norvasc) 5 mg QHS PO Last administered on 10/13/16 20:52 ; Admin Dose 5 MG; Start 09/11/16 at 21:00 Miscellaneous Medication (Bax Susp) 30 ml QID PO Last administered on 09:00; Admin Dose 30 ML; Start 09/13/16 at 13:00 Nystatin (Nystatin Susp) 5 ml QID PO Last administered on 10/14/16 09:01; Admin Dose 5 ML; Start 09/14/16 at 17:00 Diagnostic Test (Pha) (Accucheck) 1 ea 02 XX Last administered on 10/14/16 02: 12; Admin Dose 1 EA; Start 09/23/16 at 02:00 Acetaminophen 650 mg 650 mg Q6H PRN [place] PAIN OR TEMP ABOVE 38C Last administered on 09/23/16 18:24; Admin Dose 650 MG; Start 09/23/16 at 18:00 Dextrose/Sodium Chloride (D5-NS) 1,000 ml @ 50 mls/hr Q20H IV Last administered on 10/05/16 09:12; Admin Dose 50 MLS/HR; Start 09/25/16 at 13:00 Al Hydrox/Mg Hydrox/Simethicone (Mag-Al Plus) 30 ml Q4 PO Last administered on 10/14/16 09:01; Admin Dose 30 ML; Start 09/25/16 at 15:00 Pantoprazole 40 mg 40 mg BID@06,18 IV Last administered on 10/14/16 04:57; Admin Dose 40 MG; Start 09/26/16 at 18:00 Sodium Chloride (NS) 1,000 ml @ 50 mls/hr Q20H IV Last administered on 07:00; Admin Dose 50 MLS/HR; Start 10/01/16 at 17:30 Acetaminophen (Tylenol Tab) 650 mg Q4H PRN PO PAIN AND OR ELEVATED TEMP Last administered on 10/09/16 08:43; Admin Dose 650 MG; Start 10/09/16 at 08:30 Cyclobenzaprine HCl (Flexeril) 5 mg Q8 PRN PO MUSCLE SPASMS Last administered on 10/09/16 23:07; Admin Dose 5 MG; Start 10/09/16 at 13:00 Docusate Sodium (Colace) 100 mg BID PRN PO CONSTIPATION; Start 10/10/16 at 12: 00 Insulin Glargine (Lantus) 8 unit DAILY@20 SC Last administered on 10/13/16 20: 51; Admin Dose 8 UNIT; Start 10/12/16 at 22:00 BIANCA SÁNCHEZ MD Oct 14, 2016 17:03
[2016-10-14 19:33] VITALS: BP 154/78; RESP 18
[2016-10-14] MEDS: INSULIN GLARGINE [LANtus] 3 ML PEN SC SCH (20:33)
[2016-10-14] MEDS: AMLODIPINE 5 MG TAB PO SCH (20:35)
[2016-10-14] MEDS: DIPHENHYDRAMINE 25 MG CAP PO PRN (23:12)
[2016-10-14] MEDS: ACETAMINOPHEN 325 MG TAB PO PRN (23:12)
[2016-10-15] MEDS: AL HYDROX/MG HYDROX/SIMETH 30 ML CUP PO SCH ×6 (01:00→21:00)
[2016-10-15] MEDS: ACCUCHECK XX SCH (01:19)
[2016-10-15] MEDS: SOD CHLORIDE 0.9% 1,000 ML IV SCH (01:19)
[2016-10-15 05:14] LABS: HEMATOCRIT 24.5 % (42.0-52.0); HEMOGLOBIN 8.5 g/dl (14.0-18.0); MEAN CORPUSCULAR HEMOGLOBIN 28.9 pg (29.0-33.0); MEAN CORPUSCULAR HGB CONC 34.5 g/dl (32.0-37.0); MEAN CORPUSCULAR VOLUME 83.8 fl (82.0-101.0); MEAN PLATELET VOLUME 7.8 fl (7.4-10.4); RED BLOOD COUNT 2.92 10^6/ul (4.70-6.10); RED CELL DISTRIBUTION WIDTH 14.8 % (11.5-14.5)
[2016-10-15 05:27] LABS: CONDITION 1; LH ANALYZER COMMENTS 1; SUSPECT 1
[2016-10-15 05:28] LABS: PLATELET COUNT 27 10^3/UL (140-440)
[2016-10-15] MEDS: PANTOPRAZOLE 40 MG INJ IV SCH ×2 (06:00→17:54)
[2016-10-15] MEDS: DIPHENHYDRAMINE 25 MG CAP PO PRN ×2 (06:05→22:38)
[2016-10-15 08:18] VITALS: BP 137/65; RESP 18
[2016-10-15] MEDS: LIDO PO SCH ×4 (08:27→21:00)
[2016-10-15] MEDS: NYSTATIN SUSP 5 ML CUP PO SCH ×4 (08:27→21:42)
[2016-10-15] MEDS: ALLOPURINOL 300 MG TAB PO SCH (08:27)
[2016-10-15] MEDS: SUCRALFATE 1 GM TAB PO SCH ×4 (08:27→21:40)
[2016-10-15] MEDS: POLYETHYLENE GLYCOL 17 GM PACKET PO SCH (08:27)
[2016-10-15] MEDS: DIPHENHYD PO SCH ×4 (08:27→21:00)
[2016-10-15] MEDS: MYLANTA PO SCH ×4 (08:27→21:00)
[2016-10-15] MEDS: INSULIN ASPART [NOVOLOG] 3 ML PEN SC SCH ×4 (08:37→21:00)
[2016-10-15] MEDS: FLUTICASONE 0.05% 16 GM NAS SPRAY NASAL SCH (08:38)
[2016-10-15 09:28] LABS: EOSINOPHILS # 0.4 10^3/ul (0.0-0.5); LYMPHOCYTES # 1.1 10^3/ul (0.8-2.9); MONOCYTE # 0.8 10^3/ul (0.3-0.9); NEUTROPHIL # 0.2 10^3/ul (1.6-7.5); PLATELET ESTIMATE PLT APPEAR DECREASED
--- NOTE | 2016-10-15 11:46 | PN ---
Date/Time of Note Date/Time of Note DATE: 10/15/16 TIME: 11:29 Assessment/Plan VTE Prophylaxis VTE Prophylaxis Intervention: SCD's Lines/Catheters IV Catheter Type (from Nrsg): PICC Line Central line still needed: Yes (for IV access ) Urinary Cath still in place: No Assessment/Plan Assessment/Plan 71 yo male with: 1. 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 S/p multiple blood product transfusion including pRBCs and platelets Neutropenia resolved for now. Plts down to 9 and s/p 1unit yesterday and Hb stable No further acute bleeding x3 weeks a least S/p Vidaza course for palliation. Discussed with Hematology Dr Olivas, need to arrange platelet transfusion outpatient at least weekly based on trend so far.. will discuss logistics with [facility] [place] for d/c planning. Continue PT 2. UGIB/Hematemesis: s/p EGD with hemoclipping followed by mesenteric angiogram yesterday with no source of acute bleeding found Hb has been stable since pRBC transfusion last week..., up to 8.5 today, platelets being kept >10K with transfusions. Continue Protonix bid. Tolerating mostly soft diet due to some odynophagia/sore throat. Monitoring CBC. 3. Diabetes mellitus, with associated neuropathy manifest by numbness in both feet. BG better controlled. BG stable,but given night time dizziness, decrease Lantus further to 5. Zofran as needed for Nausea 4. Chronic benign positional vertigo. Continue Meclizine PRN 5. Gastroesophageal reflux disease/Gastric Ulcer s/p episode of bleeding. Continue Protonix. 6. Muscle spasm: Flexeril prn 7. Hypertension: continue Norvasc Prophylaxis. Sequential compression devices to lower extremity for DVT prevention, PPI for GI ppx DISPOSITION: S/p induction chemo, followed by 2nd round of chemo with Vidaza, following counts, Hematology following Will discuss outpatient anticipated transfusion needs with [facility] for d/c planning soon. Subjective 24 Hr Interval Summary Free Text/Dictation Patient remains stable Afebrile Hb up to 8.5 and platelets trending down to 20's today likely will need platelets transfusion in the next few days Discussed with Dr Olivas Exam/Review of Systems Vital Signs Vitals Vital Signs Date Time Temp Pulse Resp B/P Pulse Ox O2 Delivery O2 Flow Rate FiO2 10/15/16 08:18 98.7 82 18 137/65 100 Intake and Output 10/14/16 10/14/16 10/15/16 15:00 23:00 07:00 Intake Total 1600 ml 840 ml Output Total 2025 ml 1300 ml Balance -425 ml -460 ml Exam Constitutional: alert, oriented, other (stronger every day ), well developed Respiratory: clear to auscultation, normal air movement Cardiovascular: nl pulses, regular rate and rhythm Gastrointestinal: non-tender, soft Musculoskeletal: nl extremities to inspection Extremities: normal pulses, other (no edema, clubbing or cyanosis ) Neurological: HOME ADVISOR II-XII intact, nl mental status, nl speech, other (much stronger ) Results Result Diagram: 10/15/16 0445 10/14/16 0440 Results 24 hrs Laboratory Tests Test 10/14/16 12:16 10/14/16 17:57 10/14/16 20:28 10/15/16 04:45 Bedside Glucose 167 138 157 Basophils # 0.0 Basophils % 1.0 Blast Cells % 14.0 H Blastocytes # 0.4 Blood Morphology Comment Eosinophils # 0.4 Eosinophils % 12.0 H Hematocrit 24.5 L Hemoglobin 8.5 L Lymphocytes # 1.1 Lymphocytes % 38.0 Mean Corpuscular Hemoglobin 28.9 L Mean Corpuscular Hemoglobin Concent 34.5 Mean Corpuscular Volume 83.8 Mean Platelet Volume 7.8 Monocytes # 0.8 Monocytes % 28.0 H Neutrophils # 0.2 L Neutrophils % 7.0 L Nucleated Red Blood Cells # Nucleated Red Blood Cells % Platelet Count 27 #*L Platelet Estimate PLT APPEAR DECREASED Red Blood Count 2.92 L Red Cell Distribution Width 14.8 H White Blood Count 3.0 L Test 10/15/16 08:26 Bedside Glucose 157 Medications Medications Current Medications Miscellaneous Information 1 ea NOTE XX ; Start 08/31/16 at 02:00 Glucose (Glutose) 15 gm Q15M PRN PO DECREASED GLUCOSE; Start 08/31/16 at 02:00 Glucose (Glutose) 22.5 gm Q15M PRN PO DECREASED GLUCOSE; Start 08/31/16 at 02:00 Dextrose (D50w Syringe) 25 ml Q15M PRN IV DECREASED GLUCOSE Last administered on 09/25/16 12:29; Admin Dose 25 ML; Start 08/31/16 at 02:00 Dextrose (D50w Syringe) 50 ml Q15M PRN IV DECREASED GLUCOSE; Start 08/31/16 at 02:00 Glucagon (Glucagen) 1 mg Q15M PRN IM DECREASED GLUCOSE; Start 08/31/16 at 02:00 Glucose (Glutose) 15 gm Q15M PRN BUCCAL DECREASED GLUCOSE; Start 08/31/16 at 02: 00 Fluticasone Propionate (Flonase 0.05% Nasal) 2 spray DAILY NASAL Last administered on 10/09/16 08:42; Admin Dose 2 SPRAY; Start 08/31/16 at 09:00 Ondansetron HCl (Zofran Inj) 4 mg Q6H PRN IV NAUSEA AND/OR VOMITING Last administered on 10/02/16 09:20; Admin Dose 4 MG; Start 09/01/16 at 11:30 Diphenhydramine HCl (Benadryl) 25 mg Q6H PRN PO ITCHING Last administered on 06:05; Admin Dose 25 MG; Start 09/01/16 at 11:30 Guaifenesin/ Dextromethorphan (Robitussin Dm Liquid Cup) 10 ml Q4H PRN PO COUGH Last administered on 10/01/16 20:24; Admin Dose 10 ML; Start 09/02/16 at 14:00 Allopurinol (Zyloprim) 300 mg DAILY PO Last administered on 10/15/16 08:27; Admin Dose 300 MG; Start 09/04/16 at 16:30 IV Flush (NS 10 ml) 10 ml PRN PRN IV IV PROTOCOL; Start 09/05/16 at 12:30 Bisacodyl (Dulcolax Supp) 10 mg DAILY PRN [place] CONSTIPATION; Start 09/08/16 at 12 :00 Magnesium Hydroxide (Milk Of Mag) 30 ml DAILY PRN PO CONSTIPATION Last administered on 09/09/16 06:25; Admin Dose 30 ML; Start 09/08/16 at 12:00 Polyethylene Glycol (Miralax) 17 gm DAILY PO Last administered on 10/15/16 08: 27; Admin Dose 17 GM; Start 09/08/16 at 12:00 Phenol (Cepastat Lozenge) 1 lozenge Q1H PRN [place] SORE THROAT Last administered on 09/17/16 20:16; Admin Dose 1 LOZENGE; Start 09/08/16 at 12:00 Amlodipine Besylate (Norvasc) 5 mg QHS PO Last administered on 10/14/16 20:35 ; Admin Dose 5 MG; Start 09/11/16 at 21:00 Miscellaneous Medication (Bax Susp) 30 ml QID PO Last administered on 08:27; Admin Dose 30 ML; Start 09/13/16 at 13:00 Nystatin (Nystatin Susp) 5 ml QID PO Last administered on 10/15/16 08:27; Admin Dose 5 ML; Start 09/14/16 at 17:00 Diagnostic Test (Pha) (Accucheck) 1 ea 02 XX Last administered on 10/14/16 02: 12; Admin Dose 1 EA; Start 09/23/16 at 02:00 Acetaminophen (Tylenol Supp) 650 mg Q6H PRN [place] PAIN OR TEMP ABOVE 38C Last administered on 09/23/16 18:24; Admin Dose 650 MG; Start 09/23/16 at 18:00 Al Hydrox/Mg Hydrox/Simethicone (Mag-Al Plus) 30 ml Q4 PO Last administered on 10/15/16 04:39; Admin Dose 30 ML; Start 09/25/16 at 15:00 Pantoprazole (Protonix Iv) 40 mg BID@06,18 IV Last administered on 10/15/16 06 :00; Admin Dose 40 MG; Start 09/26/16 at 18:00 Acetaminophen (Tylenol Tab) 650 mg Q4H PRN PO PAIN AND OR ELEVATED TEMP Last administered on 10/14/16 23:12; Admin Dose 650 MG; Start 10/09/16 at 08:30 Cyclobenzaprine HCl (Flexeril) 5 mg Q8 PRN PO MUSCLE SPASMS Last administered on 10/09/16 23:07; Admin Dose 5 MG; Start 10/09/16 at 13:00 Docusate Sodium (Colace) 100 mg BID PRN PO CONSTIPATION; Start 10/10/16 at 12: 00 Insulin Glargine (Lantus) 8 unit DAILY@20 SC Last administered on 2/21/17at 20: 33; Admin Dose 8 UNIT; Start 10/12/16 at 22:00 TAM ROSE Oct 15, 2016 11:45
--- NOTE | 2016-10-15 12:40 | CONS ---
Date/Time of Note Date/Time of Note DATE: 10/15/16 TIME: 12:37 Assessment/Plan Assessment/Plan Chief Complaint/Hosp Course Chief Complaint/Hosp Course 71 yo with CMML who is currently off therapy admitted for symptomatic anemia and thrombocytopenia. 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 Pt has completed 7+3 and tolerated chemotherapy well thus far. Preliminary report of Day 14 bone marrow still shows residual disease. Given patient is too weak for re-induction chemotherapy will proceed with Vidaza, hypomethylating agent when patient counts recover. 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 Patient started on Vidaza -10/07/16. No need for repeat BMBx as would not exchange specialist and goal is palliative. - Thrombocytopenia is partly due to chemo and partly due to residual disease. ( Goal of Vidaza is palliative, patient would not be a good transplant or clinical trial candidate given his performance status and poor tolerance of induction chemotherapy requiring ICU admission). 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 s/p 1 units of platelets 10/13/16. Given that patient may not be transfusion independent anytime soon, will start to look into options for SNF placement with lab checks and outpatient transfusions on a twice weekly basis as needed. - Continue allopurinol for risk of tumor lysis for heme malignancy treatment. - Patient underwent EGD on 09/23/16 that demonstrated gastric ulcer covered by clot s/p hemoclipping, now s/p mesenteric angiogram and embolization of the left gastric artery. Hematemesis now resolved. - Patient will need to stay inpatient to await count recovery and monitor for infection, transfusions, etc. Plt goal > 50K if bleeding or procedures, > 20K if febrile, otherwise >10-20K (have been transfusing in the teens as patient is higher risk for bleeding given prior GIB). - Discussed with patient's daughter Shahla ([phone]) who was updated on situation and plan Problems: Consultation Date/Type/Reason Admit Date/Time Aug 31, 2016 at 00:38 Initial Consult Date 09/02/16 Type of Consultation: Hematology/Oncology Referring Provider: TAM ROSE 24 HR Interval Summary Free Text/Dictation Patient doing well and went for a walk today in the hallway. He has no complaints and wants to leave the hospital. Exam/Review of Systems Vital Signs Vitals Vital Signs Date Time Temp Pulse Resp B/P Pulse Ox O2 Delivery O2 Flow Rate FiO2 10/15/16 08:18 98.7 82 18 137/65 100 Intake and Output 10/14/16 10/14/16 10/15/16 15:00 23:00 07:00 Intake Total 1600 ml 840 ml Output Total 2025 ml 1300 ml Balance -425 ml -460 ml Exam Constitutional: alert, oriented Psych: no complaints Head: atraumatic, normocephalic Neck: supple Respiratory: clear to auscultation Cardiovascular: regular rate and rhythm Gastrointestinal: non-tender, soft Musculoskeletal: nl extremities to inspection Results Result Diagram: 10/15/165 10/14/16 0440 Results 24 hrs Laboratory Tests Test 10/14/16 17:57 10/14/16 20:28 10/15/16 04:45 10/15/16 08:26 Bedside Glucose 138 157 157 Basophils # 0.0 Basophils % 1.0 Blast Cells % 14.0 H Blastocytes # 0.4 Blood Morphology Comment Eosinophils # 0.4 Eosinophils % 12.0 H Hematocrit 24.5 L Hemoglobin 8.5 L Lymphocytes # 1.1 Lymphocytes % 38.0 Mean Corpuscular Hemoglobin 28.9 L Mean Corpuscular Hemoglobin Concent 34.5 Mean Corpuscular Volume 83.8 Mean Platelet Volume 7.8 Monocytes # 0.8 Monocytes % 28.0 H Neutrophils # 0.2 L Neutrophils % 7.0 L Nucleated Red Blood Cells # Nucleated Red Blood Cells % Platelet Count 27 #*L Platelet Estimate PLT APPEAR DECREASED Red Blood Count 2.92 L Red Cell Distribution Width 14.8 H White Blood Count 3.0 L Test 10/15/16 12:23 Bedside Glucose 175 Medications Medications Current Medications Miscellaneous Information 1 ea NOTE XX ; Start 08/31/16 at 02:00 Glucose (Glutose) 15 gm Q15M PRN PO DECREASED GLUCOSE; Start 08/31/16 at 02:00 Glucose (Glutose) 22.5 gm Q15M PRN PO DECREASED GLUCOSE; Start 08/31/16 at 02:00 Dextrose (D50w Syringe) 25 ml Q15M PRN IV DECREASED GLUCOSE Last administered on 09/25/16 12:29; Admin Dose 25 ML; Start 08/31/16 at 02:00 Dextrose (D50w Syringe) 50 ml Q15M PRN IV DECREASED GLUCOSE; Start 08/31/16 at 02:00 Glucagon (Glucagen) 1 mg Q15M PRN IM DECREASED GLUCOSE; Start 08/31/16 at 02:00 Glucose (Glutose) 15 gm Q15M PRN BUCCAL DECREASED GLUCOSE; Start 08/31/16 at 02: 00 Fluticasone Propionate (Flonase 0.05% Nasal) 2 spray DAILY NASAL Last administered on 10/09/16 08:42; Admin Dose 2 SPRAY; Start 08/31/16 at 09:00 Ondansetron HCl (Zofran Inj) 4 mg Q6H PRN IV NAUSEA AND/OR VOMITING Last administered on 10/02/16 09:20; Admin Dose 4 MG; Start 09/01/16 at 11:30 Diphenhydramine HCl (Benadryl) 25 mg Q6H PRN PO ITCHING Last administered on 06:05; Admin Dose 25 MG; Start 09/01/16 at 11:30 Guaifenesin/ Dextromethorphan (Robitussin Dm Liquid Cup) 10 ml Q4H PRN PO COUGH Last administered on 10/01/16 20:24; Admin Dose 10 ML; Start 09/02/16 at 14:00 Allopurinol (Zyloprim) 300 mg DAILY PO Last administered on 10/15/16 08:27; Admin Dose 300 MG; Start 09/04/16 at 16:30 IV Flush (NS 10 ml) 10 ml PRN PRN IV IV PROTOCOL; Start 09/05/16 at 12:30 Bisacodyl (Dulcolax Supp) 10 mg DAILY PRN [place] CONSTIPATION; Start 09/08/16 at 12 :00 Magnesium Hydroxide (Milk Of Mag) 30 ml DAILY PRN PO CONSTIPATION Last administered on 09/09/16 06:25; Admin Dose 30 ML; Start 09/08/16 at 12:00 Polyethylene Glycol (Miralax) 17 gm DAILY PO Last administered on 10/15/16 08: 27; Admin Dose 17 GM; Start 09/08/16 at 12:00 Phenol (Cepastat Lozenge) 1 lozenge Q1H PRN [place] SORE THROAT Last administered on 09/17/16 20:16; Admin Dose 1 LOZENGE; Start 09/08/16 at 12:00 Amlodipine Besylate (Norvasc) 5 mg QHS PO Last administered on 10/14/16 20:35 ; Admin Dose 5 MG; Start 09/11/16 at 21:00 Miscellaneous Medication (Bax Susp) 30 ml QID PO Last administered on 08:27; Admin Dose 30 ML; Start 09/13/16 at 13:00 Nystatin (Nystatin Susp) 5 ml QID PO Last administered on 10/15/16 08:27; Admin Dose 5 ML; Start 09/14/16 at 17:00 Diagnostic Test (Pha) (Accucheck) 1 ea 02 XX Last administered on 10/14/16 02: 12; Admin Dose 1 EA; Start 09/23/16 at 02:00 Acetaminophen (Tylenol Supp) 650 mg Q6H PRN [place] PAIN OR TEMP ABOVE 38C Last administered on 09/23/16 18:24; Admin Dose 650 MG; Start 09/23/16 at 18:00 Al Hydrox/Mg Hydrox/Simethicone (Mag-Al Plus) 30 ml Q4 PO Last administered on 10/15/16 04:39; Admin Dose 30 ML; Start 09/25/16 at 15:00 Pantoprazole (Protonix Iv) 40 mg BID@06,18 IV Last administered on 10/15/16 06 :00; Admin Dose 40 MG; Start 09/26/16 at 18:00 Acetaminophen (Tylenol Tab) 650 mg Q4H PRN PO PAIN AND OR ELEVATED TEMP Last administered on 10/14/16 23:12; Admin Dose 650 MG; Start 10/09/16 at 08:30 Cyclobenzaprine HCl (Flexeril) 5 mg Q8 PRN PO MUSCLE SPASMS Last administered on 10/09/16 23:07; Admin Dose 5 MG; Start 10/09/16 at 13:00 Docusate Sodium (Colace) 100 mg BID PRN PO CONSTIPATION; Start 10/10/16 at 12: 00 Insulin Glargine (Lantus) 8 unit DAILY@20 SC Last administered on 2/21/17at 20: 33; Admin Dose 8 UNIT; Start 10/12/16 at 22:00 TO,ROMA Bass MD Oct 15, 2016 12:40
[2016-10-15] MEDS: AMLODIPINE 5 MG TAB PO SCH (21:42)
[2016-10-15] MEDS: INSULIN GLARGINE [LANtus] 3 ML PEN SC SCH (22:38)
[2016-10-16] MEDS: AL HYDROX/MG HYDROX/SIMETH 30 ML CUP PO SCH ×6 (01:00→20:43)
[2016-10-16] MEDS: ACCUCHECK XX SCH (02:00)
[2016-10-16 05:45] LABS: HEMATOCRIT 24.1 % (42.0-52.0); HEMOGLOBIN 8.3 g/dl (14.0-18.0); MEAN CORPUSCULAR HEMOGLOBIN 28.8 pg (29.0-33.0); MEAN CORPUSCULAR HGB CONC 34.2 g/dl (32.0-37.0); MEAN CORPUSCULAR VOLUME 84.3 fl (82.0-101.0); MEAN PLATELET VOLUME 8.4 fl (7.4-10.4); RED BLOOD COUNT 2.86 10^6/ul (4.70-6.10); UNCORRECTED WBC 3.3 10^3/ul (4.8-10.8); WHITE BLOOD COUNT 3.3 10^3/ul (4.8-10.8)
[2016-10-16 06:25] LABS: CONDITION 1; LH ANALYZER COMMENTS 1; SUSPECT 1
[2016-10-16 06:26] LABS: PLATELET COUNT 20 10^3/UL (140-440)
[2016-10-16] MEDS: PANTOPRAZOLE 40 MG INJ IV SCH (06:37)
[2016-10-16] MEDS: SUCRALFATE 1 GM TAB PO SCH ×4 (06:37→20:49)
[2016-10-16] MEDS: INSULIN ASPART [NOVOLOG] 3 ML PEN SC SCH ×4 (07:50→21:00)
[2016-10-16] MEDS: POLYETHYLENE GLYCOL 17 GM PACKET PO SCH (08:48)
[2016-10-16] MEDS: LIDO PO SCH ×4 (08:48→20:50)
[2016-10-16] MEDS: MYLANTA PO SCH ×4 (08:48→20:50)
[2016-10-16] MEDS: DIPHENHYD PO SCH ×4 (08:48→20:50)
[2016-10-16 08:49] VITALS: BP 113/62; RESP 18
[2016-10-16] MEDS: NYSTATIN SUSP 5 ML CUP PO SCH ×4 (08:49→20:43)
[2016-10-16] MEDS: ALLOPURINOL 300 MG TAB PO SCH (08:49)
[2016-10-16] MEDS: FLUTICASONE 0.05% 16 GM NAS SPRAY NASAL SCH (08:50)
--- NOTE | 2016-10-16 10:28 | PN ---
Date/Time of Note Date/Time of Note DATE: 10/16/16 TIME: 10:14 Assessment/Plan VTE Prophylaxis VTE Prophylaxis Intervention: SCD's Lines/Catheters IV Catheter Type (from Nrsg): PICC Line Central line still needed: Yes (for transfusion) Urinary Cath still in place: No Assessment/Plan Assessment/Plan 71 yo male with: 1. 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 S/p multiple blood product transfusion including pRBCs and platelets Neutropenia resolved for now. Plts down to 20K today from 47K, 2 days ago and Hb stable. No further acute bleeding x3 weeks a least S/p Vidaza course for palliation. Discussed with Hematology Dr Olivas, plan for platelet transfusion outpatient at least 2 units weekly based on trend so far, Home health RN to draw cbc weekly, Mondays and transfusion to be arranged through [place] and/or Oncology outpatient. D/c plan for Home tomorrow 10/17 post likely platelets transfusion if Ok with Hematology Home Health PT also to be arranged 2. UGIB/Hematemesis: s/p EGD with hemoclipping followed by mesenteric angiogram yesterday with no source of acute bleeding found Hb has been stable since pRBC transfusion last week..., up to 8.3 today, platelets being kept >10K with transfusions. Continue Protonix bid. Tolerating mostly soft diet due to some odynophagia/sore throat. Monitoring CBC outpaitjent. 3. Diabetes mellitus, with associated neuropathy manifest by numbness in both feet. BG better controlled. BG stable,but given night time dizziness, decrease Lantus further to 5. Zofran as needed for Nausea 4. Chronic benign positional vertigo. Continue Meclizine PRN 5. Gastroesophageal reflux disease/Gastric Ulcer s/p episode of bleeding. Continue Protonix. 6. Muscle spasm: Flexeril prn 7. Hypertension: continue Norvasc Prophylaxis. Sequential compression devices to lower extremity for DVT prevention, PPI for GI ppx DISPOSITION: S/p induction chemo, followed by 2nd round of chemo with Vidaza, following counts, Hematology following Will discuss outpatient anticipated transfusion needs with [facility] for d/c planning within 24 hrs. Subjective 24 Hr Interval Summary Free Text/Dictation Patient doing well and wants to go home, will plan for Home Health PT an RN with outpatient platelet or pRBC transfusion as needed weekly. No Complaints Exam/Review of Systems Vital Signs Vitals Vital Signs Date Time Temp Pulse Resp B/P Pulse Ox O2 Delivery O2 Flow Rate FiO2 10/16/16 08:49 97.5 89 18 113/62 99 Intake and Output 10/15/16 10/15/16 10/16/16 15:00 23:00 07:00 Intake Total 950 ml 980 ml Output Total 1250 ml 800 ml Balance -300 ml 180 ml Exam Constitutional: alert, oriented, well developed Respiratory: clear to auscultation, normal air movement Cardiovascular: nl pulses, regular rate and rhythm Gastrointestinal: non-tender, soft Musculoskeletal: nl extremities to inspection, nl gait and stance Extremities: normal pulses, other (no edema, clubbing or cyanosis ) Neurological: SCRAP IRON CUTTER II-XII intact, nl mental status, nl speech, other (much stronger today ) Results Result Diagram: 10/16/16 0458 10/14/16 0440 Results 24 hrs Laboratory Tests Test 10/15/16 12:23 10/15/16 17:45 10/15/16 21:08 10/16/16 04:58 Bedside Glucose 175 223 H 154 Basophils # Basophils % Blood Morphology Comment Eosinophils # Eosinophils % Hematocrit 24.1 L Hemoglobin 8.3 L Lymphocytes # Lymphocytes % Mean Corpuscular Hemoglobin 28.8 L Mean Corpuscular Hemoglobin Concent 34.2 Mean Corpuscular Volume 84.3 Mean Platelet Volume 8.4 Monocytes # Neutrophils # Neutrophils % Nucleated Red Blood Cells # Nucleated Red Blood Cells % Platelet Count 20 #*L Red Blood Count 2.86 L Red Cell Distribution Width 15.0 H White Blood Count 3.3 L Test 10/16/16 08:51 Bedside Glucose 95 Medications Medications Current Medications Miscellaneous Information 1 ea NOTE XX ; Start 08/31/16 at 02:00 Glucose (Glutose) 15 gm Q15M PRN PO DECREASED GLUCOSE; Start 08/31/16 at 02:00 Glucose (Glutose) 22.5 gm Q15M PRN PO DECREASED GLUCOSE; Start 08/31/16 at 02:00 Dextrose (D50w Syringe) 25 ml Q15M PRN IV DECREASED GLUCOSE Last administered on 09/25/16 12:29; Admin Dose 25 ML; Start 08/31/16 at 02:00 Dextrose (D50w Syringe) 50 ml Q15M PRN IV DECREASED GLUCOSE; Start 08/31/16 at 02:00 Glucagon (Glucagen) 1 mg Q15M PRN IM DECREASED GLUCOSE; Start 08/31/16 at 02:00 Glucose (Glutose) 15 gm Q15M PRN BUCCAL DECREASED GLUCOSE; Start 08/31/16 at 02: 00 Fluticasone Propionate (Flonase 0.05% Nasal) 2 spray DAILY NASAL Last administered on 10/09/16 08:42; Admin Dose 2 SPRAY; Start 08/31/16 at 09:00 Ondansetron HCl (Zofran Inj) 4 mg Q6H PRN IV NAUSEA AND/OR VOMITING Last administered on 10/02/16 09:20; Admin Dose 4 MG; Start 09/01/16 at 11:30 Diphenhydramine HCl (Benadryl) 25 mg Q6H PRN PO ITCHING Last administered on 22:38; Admin Dose 25 MG; Start 09/01/16 at 11:30 Guaifenesin/ Dextromethorphan (Robitussin Dm Liquid Cup) 10 ml Q4H PRN PO COUGH Last administered on 10/01/16 20:24; Admin Dose 10 ML; Start 09/02/16 at 14:00 Allopurinol (Zyloprim) 300 mg DAILY PO Last administered on 10/16/16 08:49; Admin Dose 300 MG; Start 09/04/16 at 16:30 IV Flush (NS 10 ml) 10 ml PRN PRN IV IV PROTOCOL; Start 09/05/16 at 12:30 Bisacodyl (Dulcolax Supp) 10 mg DAILY PRN [place] CONSTIPATION; Start 09/08/16 at 12 :00 Magnesium Hydroxide (Milk Of Mag) 30 ml DAILY PRN PO CONSTIPATION Last administered on 09/09/16 06:25; Admin Dose 30 ML; Start 09/08/16 at 12:00 Polyethylene Glycol (Miralax) 17 gm DAILY PO Last administered on 10/15/16 08: 27; Admin Dose 17 GM; Start 09/08/16 at 12:00 Phenol (Cepastat Lozenge) 1 lozenge Q1H PRN [place] SORE THROAT Last administered on 09/17/16 20:16; Admin Dose 1 LOZENGE; Start 09/08/16 at 12:00 Amlodipine Besylate (Norvasc) 5 mg QHS PO Last administered on 10/15/16 21:42 ; Admin Dose 5 MG; Start 09/11/16 at 21:00 Miscellaneous Medication (Bax Susp) 30 ml QID PO Last administered on 08:27; Admin Dose 30 ML; Start 09/13/16 at 13:00 Nystatin (Nystatin Susp) 5 ml QID PO Last administered on 10/16/16 08:49; Admin Dose 5 ML; Start 09/14/16 at 17:00 Diagnostic Test (Pha) (Accucheck) 1 ea 02 XX Last administered on 10/14/16 02: 12; Admin Dose 1 EA; Start 09/23/16 at 02:00 Acetaminophen (Tylenol Supp) 650 mg Q6H PRN [place] PAIN OR TEMP ABOVE 38C Last administered on 09/23/16 18:24; Admin Dose 650 MG; Start 09/23/16 at 18:00 Al Hydrox/Mg Hydrox/Simethicone (Mag-Al Plus) 30 ml Q4 PO Last administered on 10/16/16 08:49; Admin Dose 30 ML; Start 09/25/16 at 15:00 Pantoprazole (Protonix Iv) 40 mg BID@06,18 IV Last administered on 10/16/16 06 :37; Admin Dose 40 MG; Start 09/26/16 at 18:00 Acetaminophen (Tylenol Tab) 650 mg Q4H PRN PO PAIN AND OR ELEVATED TEMP Last administered on 10/14/16 23:12; Admin Dose 650 MG; Start 10/09/16 at 08:30 Cyclobenzaprine HCl (Flexeril) 5 mg Q8 PRN PO MUSCLE SPASMS Last administered on 10/09/16 23:07; Admin Dose 5 MG; Start 10/09/16 at 13:00 Docusate Sodium (Colace) 100 mg BID PRN PO CONSTIPATION; Start 10/10/16 at 12: 00 Insulin Glargine (Lantus) 8 unit DAILY@20 SC Last administered on 10/15/16 22: 38; Admin Dose 8 UNIT; Start 2/19/17 at 22:00 TAM ROSE Oct 16, 2016 10:24
[2016-10-16 10:57] LABS: BASOPHIL # 0.1 10^3/ul (0.0-0.1); EOSINOPHILS # 0.4 10^3/ul (0.0-0.5); MONOCYTE # 1.3 10^3/ul (0.3-0.9); MYELOCYTES # 0.1; NEUTROPHIL # 0.1 10^3/ul (1.6-7.5); PLATELET ESTIMATE PLT APPEAR DECREASED
--- NOTE | 2016-10-16 10:59 | PDOCDIS ---
Discharge Instructions CONDITION Patient Condition: Stable HOME CARE INSTRUCTIONS: Diet Instructions: RegularSpecial Diet: diabetic ACTIVITY: Activity Restrictions: Slowly Increase Activity Rest between Activity Avoid heavy lifting Bathing Restrictions: Shower FOLLOW UP/APPOINTMENTS Appointments Follow up with PCP within 1 week Follow up with Hematology, Dr Иван Gallegos in 1 week Follow up with Home health by Friday 10/20 for CBC draw (blood draw), patient to have CBC drawn twice weekly (every Mondays/) with results to be faxed to Dr Иван Gallegos's office, fax # [phone] and [phone], please fax to both numbers. Follow up with Home Health PT TAM ROSE Oct 16, 2016 10:58
[2016-10-16] MEDS ORDERED: PANT40TA3 PO (11:01)
[2016-10-16] MEDS ORDERED: CYCL-319 PO (11:01)
[2016-10-16] MEDS ORDERED: AMLO-145 PO (11:01)
[2016-10-16] MEDS ORDERED: METF500T4 PO (11:04)
--- NOTE | 2016-10-16 15:38 | CONS ---
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 Pt has completed 7+3 and tolerated chemotherapy well thus far. Preliminary report of Day 14 bone marrow still shows residual disease. Given patient is too weak for re-induction chemotherapy will proceed with Vidaza, hypomethylating agent when patient counts recover. 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 Patient started on Vidaza -10/07/16. No need for repeat BMBx as would not pattern changer and repairer and goal is palliative. - Thrombocytopenia is partly due to chemo and partly due to residual disease. ( Goal of Vidaza is palliative, patient would not be a good transplant or clinical trial candidate given his performance status and poor tolerance of induction chemotherapy requiring ICU admission). 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 s/p 1 units of platelets 10/13/16. Per primary team, plan to d/c home with home health with twice weekly CBC and transfusion if needed to be arranged by Dr. Иван Gallegos' s office. Will give 1 unit platelets tomorrow prior to discharge. - Given positive orthostats, would suggest IV fluids, primary team aware. - Continue allopurinol for risk of tumor lysis for heme malignancy treatment. - Patient underwent EGD on 09/23/16 that demonstrated gastric ulcer covered by clot s/p hemoclipping, now s/p mesenteric angiogram and embolization of the left gastric artery. Hematemesis now resolved. - Patient will need to stay inpatient to await count recovery and monitor for infection, transfusions, etc. Plt goal > 50K if bleeding or procedures, > 20K if febrile, otherwise >10-20K (have been transfusing in the teens as patient is higher risk for bleeding given prior GIB). - Discussed with patient's daughter Shahla ([phone]) who was updated on situation and plan Problems: Consultation Date/Type/Reason Admit Date/Time Aug 31, 2016 at 00:38 Initial Consult Date 09/02/16 Type of Consultation: Hematology/Oncology Referring Provider: TAM ROSE 24 HR Interval Summary Free Text/Dictation The patient is doing well but notes that he feels lightheaded when he stands. BP laying 127/71, HR 91, BP standing 105/60, HR 104. Exam/Review of Systems Vital Signs Vitals Vital Signs Date Time Temp Pulse Resp B/P Pulse Ox O2 Delivery O2 Flow Rate FiO2 10/16/16 08:49 97.5 89 18 113/62 99 Intake and Output 10/15/16 10/15/16 10/16/16 15:00 23:00 07:00 Intake Total 950 ml 980 ml Output Total 1250 ml 800 ml Balance -300 ml 180 ml Exam Constitutional: alert, oriented Psych: no complaints Head: atraumatic, normocephalic Neck: supple Respiratory: clear to auscultation Cardiovascular: regular rate and rhythm Gastrointestinal: non-tender, soft Musculoskeletal: nl extremities to inspection Results Result Diagram: 10/16/16 0458 10/14/16 0440 Results 24 hrs Laboratory Tests Test 10/15/16 17:45 10/15/16 21:08 10/16/16 04:58 10/16/16 08:51 Bedside Glucose 223 H 154 95 Basophils # 0.1 Basophils % 2.0 Blast Cells % 11.0 H Blastocytes # 0.4 Blood Morphology Comment Eosinophils # 0.4 Eosinophils % 11.0 H Hematocrit 24.1 L Hemoglobin 8.3 L Lymphocytes # 1.0 Lymphocytes % 30.0 Mean Corpuscular Hemoglobin 28.8 L Mean Corpuscular Hemoglobin Concent 34.2 Mean Corpuscular Volume 84.3 Mean Platelet Volume 8.4 Monocytes # 1.3 H Myelocytes # 0.1 Myelocytes % 2.0 H Neutrophils # 0.1 L Neutrophils % 2.0 L Nucleated Red Blood Cells # Nucleated Red Blood Cells % Platelet Count 20 #*L Platelet Estimate PLT APPEAR DECREASED Promyelocytes # 0.1 Promyelocytes % 2.0 H Red Blood Count 2.86 L Red Cell Distribution Width 15.0 H White Blood Count 3.3 L Test 10/16/16 12:34 Bedside Glucose 198 Medications Medications Current Medications Miscellaneous Information 1 ea NOTE XX ; Start 08/31/16 at 02:00 Glucose (Glutose) 15 gm Q15M PRN PO DECREASED GLUCOSE; Start 08/31/16 at 02:00 Glucose (Glutose) 22.5 gm Q15M PRN PO DECREASED GLUCOSE; Start 08/31/16 at 02:00 Dextrose (D50w Syringe) 25 ml Q15M PRN IV DECREASED GLUCOSE Last administered on 09/25/16 12:29; Admin Dose 25 ML; Start 08/31/16 at 02:00 Dextrose (D50w Syringe) 50 ml Q15M PRN IV DECREASED GLUCOSE; Start 08/31/16 at 02:00 Glucagon (Glucagen) 1 mg Q15M PRN IM DECREASED GLUCOSE; Start 08/31/16 at 02:00 Glucose (Glutose) 15 gm Q15M PRN BUCCAL DECREASED GLUCOSE; Start 08/31/16 at 02: 00 Fluticasone Propionate (Flonase 0.05% Nasal) 2 spray DAILY NASAL Last administered on 10/09/16 08:42; Admin Dose 2 SPRAY; Start 08/31/16 at 09:00 Ondansetron HCl (Zofran Inj) 4 mg Q6H PRN IV NAUSEA AND/OR VOMITING Last administered on 10/02/16 09:20; Admin Dose 4 MG; Start 09/01/16 at 11:30 Diphenhydramine HCl (Benadryl) 25 mg Q6H PRN PO ITCHING Last administered on 22:38; Admin Dose 25 MG; Start 09/01/16 at 11:30 Guaifenesin/ Dextromethorphan (Robitussin Dm Liquid Cup) 10 ml Q4H PRN PO COUGH Last administered on 10/01/16 20:24; Admin Dose 10 ML; Start 09/02/16 at 14:00 Allopurinol (Zyloprim) 300 mg DAILY PO Last administered on 10/16/16 08:49; Admin Dose 300 MG; Start 09/04/16 at 16:30 IV Flush (NS 10 ml) 10 ml PRN PRN IV IV PROTOCOL; Start 09/05/16 at 12:30 Bisacodyl (Dulcolax Supp) 10 mg DAILY PRN [place] CONSTIPATION; Start 09/08/16 at 12 :00 Magnesium Hydroxide (Milk Of Mag) 30 ml DAILY PRN PO CONSTIPATION Last administered on 09/09/16 06:25; Admin Dose 30 ML; Start 09/08/16 at 12:00 Polyethylene Glycol (Miralax) 17 gm DAILY PO Last administered on 10/15/16 08: 27; Admin Dose 17 GM; Start 09/08/16 at 12:00 Phenol (Cepastat Lozenge) 1 lozenge Q1H PRN [place] SORE THROAT Last administered on 09/17/16 20:16; Admin Dose 1 LOZENGE; Start 09/08/16 at 12:00 Amlodipine Besylate (Norvasc) 5 mg QHS PO Last administered on 10/15/16 21:42 ; Admin Dose 5 MG; Start 09/11/16 at 21:00 Miscellaneous Medication (Bax Susp) 30 ml QID PO Last administered on 08:27; Admin Dose 30 ML; Start 09/13/16 at 13:00 Nystatin (Nystatin Susp) 5 ml QID PO Last administered on 10/16/16 12:35; Admin Dose 5 ML; Start 09/14/16 at 17:00 Diagnostic Test (Pha) (Accucheck) 1 ea 02 XX Last administered on 10/14/16 02: 12; Admin Dose 1 EA; Start 09/23/16 at 02:00 Acetaminophen (Tylenol Supp) 650 mg Q6H PRN [place] PAIN OR TEMP ABOVE 38C Last administered on 09/23/16 18:24; Admin Dose 650 MG; Start 09/23/16 at 18:00 Al Hydrox/Mg Hydrox/Simethicone (Mag-Al Plus) 30 ml Q4 PO Last administered on 10/16/16 12:35; Admin Dose 30 ML; Start 09/25/16 at 15:00 Acetaminophen (Tylenol Tab) 650 mg Q4H PRN PO PAIN AND OR ELEVATED TEMP Last administered on 10/14/16 23:12; Admin Dose 650 MG; Start 10/09/16 at 08:30 Cyclobenzaprine HCl (Flexeril) 5 mg Q8 PRN PO MUSCLE SPASMS Last administered on 10/09/16 23:07; Admin Dose 5 MG; Start 10/09/16 at 13:00 Docusate Sodium (Colace) 100 mg BID PRN PO CONSTIPATION; Start 10/10/16 at 12: 00 Pantoprazole (Protonix Tab) 40 mg BID@06,18 PO ; Start 10/16/16 at 18:00 TO,ROMA Bass MD Oct 16, 2016 15:38
[2016-10-16] MEDS ORDERED: SOD CHLORIDE 0.9% 250 ML IV* ONE (16:26)
[2016-10-16] MEDS ORDERED: ACETAMINOPHEN 325 MG TAB PO SCH (17:00)
[2016-10-16] MEDS ORDERED: SOD CHLORIDE 0.9% 500 ML IV ONE (17:00)
[2016-10-16] MEDS: metFORMIN 500 MG TAB PO SCH (17:41)
[2016-10-16] MEDS: PANTOPRAZOLE (EC) 40 MG TAB PO SCH (17:41)
[2016-10-16] MEDS ORDERED: SOD CHLORIDE 0.9% 1,000 ML IV SCH (18:00)
[2016-10-16 19:50] VITALS: BP 129/59; PULSE 84; RESP 18
[2016-10-16] MEDS ORDERED: INSULIN GLARGINE [LANtus] 3 ML PEN SC SCH (20:00)
[2016-10-16] MEDS: AMLODIPINE 5 MG TAB PO SCH (20:44)
[2016-10-16] MEDS: DIPHENHYDRAMINE 25 MG CAP PO PRN (22:13)
[2016-10-17] VITALS (17 sets, daily range): BP systolic 128–156; BP diastolic 60–81; PULSE 75–89; RESP 16–20
[2016-10-17] MEDS: AL HYDROX/MG HYDROX/SIMETH 30 ML CUP PO SCH ×6 (01:00→20:41)
[2016-10-17] MEDS: ACCUCHECK XX SCH (02:00)
[2016-10-17 05:42] LABS: ADD SCAN DIFF NO
[2016-10-17] MEDS: PANTOPRAZOLE (EC) 40 MG TAB PO SCH ×2 (05:51→18:31)
[2016-10-17] MEDS: SUCRALFATE 1 GM TAB PO SCH ×4 (05:51→20:42)
[2016-10-17 05:55] LABS: ABNORMAL IP MESSAGE 1; HEMOGLOBIN 7.5 g/dl (14.0-18.0); MEAN CORPUSCULAR HEMOGLOBIN 28.7 pg (29.0-33.0); MEAN CORPUSCULAR HGB CONC 34.1 g/dl (32.0-37.0); MEAN CORPUSCULAR VOLUME 84.3 fl (82.0-101.0); MEAN PLATELET VOLUME 10.2 fl (7.4-10.4); RED BLOOD COUNT 2.61 10^6/ul (4.70-6.10); RED CELL DISTRIBUTION WIDTH 13.8 % (11.5-14.5); WHITE BLOOD COUNT 2.9 10^3/ul (4.8-10.8)
[2016-10-17 07:03] LABS: PLATELET COUNT 9 10^3/UL (140-415)
[2016-10-17] MEDS: DIPHENHYD PO SCH ×4 (09:00→20:46)
[2016-10-17] MEDS: MYLANTA PO SCH ×4 (09:00→20:46)
[2016-10-17] MEDS: FLUTICASONE 0.05% 16 GM NAS SPRAY NASAL SCH (09:00)
[2016-10-17] MEDS: LIDO PO SCH ×4 (09:00→20:46)
[2016-10-17] MEDS: metFORMIN 500 MG TAB PO SCH ×2 (09:13→18:32)
[2016-10-17] MEDS: POLYETHYLENE GLYCOL 17 GM PACKET PO SCH (09:14)
[2016-10-17] MEDS: NYSTATIN SUSP 5 ML CUP PO SCH ×4 (09:14→20:46)
[2016-10-17] MEDS: ALLOPURINOL 300 MG TAB PO SCH (09:14)
[2016-10-17] MEDS: INSULIN ASPART [NOVOLOG] 3 ML PEN SC SCH ×4 (09:28→21:00)
[2016-10-17 11:01] LABS: BASOPHIL # 0.1 10^3/ul (0.0-0.1); LYMPHOCYTES # 0.9 10^3/ul (0.8-2.9); MONOCYTE # 0.8 10^3/ul (0.3-0.9); MYELOCYTES # 0.1; NEUTROPHIL # 0.1 10^3/ul (1.6-7.5)
[2016-10-17 11:05] LABS: PLATELET ESTIMATE PLT APPEAR DECREASED
--- NOTE | 2016-10-17 12:19 | PN ---
Date/Time of Note Date/Time of Note DATE: 10/17/16 TIME: 11:48 Assessment/Plan VTE Prophylaxis VTE Prophylaxis Intervention: SCD's Lines/Catheters IV Catheter Type (from Nrsg): PICC Line Central line still needed: Yes (for transfusions ) Urinary Cath still in place: No Assessment/Plan Assessment/Plan 71 yo male with: 1. 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 S/p multiple blood product transfusion including pRBCs and platelets Neutropenia resolved for now. Plts down to 9K today from 20K, and hb down to 7.5 , transfusing 2 units pRBC and 2 units platelets No further acute bleeding x3 weeks a least S/p Vidaza course for palliation. Discussed with Hematology Dr Olivas, plan for platelet transfusion outpatient at least 2 units weekly based on trend so far, Home health RN to draw cbc weekly, Mondays and transfusion to be arranged through [facility] and/or Oncology outpatient. D/c plan for Home today post likely platelets transfusion. Home Health PT also to be arranged 2. UGIB/Hematemesis: s/p EGD with hemoclipping followed by mesenteric angiogram yesterday with no source of acute bleeding found Hb has been stable since pRBC transfusion last week..., up to 8.3 today, platelets being kept >10K with transfusions. Continue Protonix bid. Tolerating mostly soft diet due to some odynophagia/sore throat. Monitoring CBC outpatient twice weekly with results to be faxed to Dr Иван Gallegos, the patient's primary iron molder helper. 3. Diabetes mellitus, with associated neuropathy manifest by numbness in both feet. BG better controlled. BG stable, d/c Lantus and resume Metformin for outpatient management. Zofran as needed for Nausea 4. Chronic benign positional vertigo. Continue Meclizine PRN 5. Gastroesophageal reflux disease/Gastric Ulcer s/p episode of bleeding. Continue Protonix po bid. 6. Hypertension: continue Norvasc as needed Prophylaxis. Sequential compression devices to lower extremity for DVT prevention, PPI for GI ppx DISPOSITION: S/p induction chemo, followed by 2nd round of chemo with Vidaza, following counts, Hematology following D/c plan home today after pRBC and platelets transfusion. Patient to go home with PICC line at discharge. Subjective 24 Hr Interval Summary Free Text/Dictation Patient doing OK To receive 2 units of pRBC and 2 units of platelets today with plan for d/c home later or in AM Exam/Review of Systems Vital Signs Vitals Vital Signs Date Time Temp Pulse Resp B/P Pulse Ox O2 Delivery O2 Flow Rate FiO2 10/17/16 08:07 98.8 89 20 129/68 100 Intake and Output 10/16/16 10/16/16 10/17/16 15:00 23:00 07:00 Intake Total 1060 ml 1950 ml Output Total 2000 ml Balance 1060 ml -50 ml Exam Constitutional: alert, oriented, other (stronger today ) Respiratory: clear to auscultation, normal air movement Cardiovascular: nl pulses, regular rate and rhythm Gastrointestinal: non-tender, soft Musculoskeletal: nl extremities to inspection Extremities: normal pulses, other (no edema, clubbing or cyanosis ) Neurological: TRAFFIC CONTROL FLAGGER II-XII intact, nl mental status Results Result Diagram: 10/17/16 0450 10/14/16 0440 Results 24 hrs Laboratory Tests Test 10/16/16 12:34 10/16/16 17:48 10/16/16 20:46 10/17/16 04:50 Bedside Glucose 198 174 146 Band Neutrophils % 1.0 Basophils # 0.1 Basophils % 2.0 Blast Cells % 27.0 H Blastocytes # 0.8 Eosinophils # 0.0 Eosinophils % 1.0 Hematocrit 22.0 L Hemoglobin 7.5 L Lymphocytes # 0.9 Lymphocytes % 32.0 Mean Corpuscular Hemoglobin 28.7 L Mean Corpuscular Hemoglobin Concent 34.1 Mean Corpuscular Volume 84.3 Mean Platelet Volume 10.2 # Metamyelocytes # 0.1 Metamyelocytes % 2.0 H Monocytes # 0.8 Monocytes % 26.0 H Myelocytes # 0.1 Myelocytes % 4.0 H Neutrophils # 0.1 L Neutrophils % 4.0 L Nucleated Red Blood Cells % 4.0 H Platelet Count 9 #*L Platelet Estimate PLT APPEAR DECREASED Promyelocytes # 0.0 Promyelocytes % 1.0 H Red Blood Count 2.61 L Red Cell Distribution Width 13.8 White Blood Count 2.9 L Test 10/17/16 08:21 Bedside Glucose 142 Medications Medications Current Medications Miscellaneous Information 1 ea NOTE XX ; Start 08/31/16 at 02:00 Glucose (Glutose) 15 gm Q15M PRN PO DECREASED GLUCOSE; Start 08/31/16 at 02:00 Glucose (Glutose) 22.5 gm Q15M PRN PO DECREASED GLUCOSE; Start 08/31/16 at 02:00 Dextrose (D50w Syringe) 25 ml Q15M PRN IV DECREASED GLUCOSE Last administered on 09/25/16 12:29; Admin Dose 25 ML; Start 08/31/16 at 02:00 Dextrose (D50w Syringe) 50 ml Q15M PRN IV DECREASED GLUCOSE; Start 08/31/16 at 02:00 Glucagon (Glucagen) 1 mg Q15M PRN IM DECREASED GLUCOSE; Start 08/31/16 at 02:00 Glucose (Glutose) 15 gm Q15M PRN BUCCAL DECREASED GLUCOSE; Start 08/31/16 at 02: 00 Fluticasone Propionate (Flonase 0.05% Nasal) 2 spray DAILY NASAL Last administered on 10/09/16 08:42; Admin Dose 2 SPRAY; Start 08/31/16 at 09:00 Ondansetron HCl (Zofran Inj) 4 mg Q6H PRN IV NAUSEA AND/OR VOMITING Last administered on 10/02/16 09:20; Admin Dose 4 MG; Start 09/01/16 at 11:30 Diphenhydramine HCl (Benadryl) 25 mg Q6H PRN PO ITCHING Last administered on 22:13; Admin Dose 25 MG; Start 09/01/16 at 11:30 Guaifenesin/ Dextromethorphan (Robitussin Dm Liquid Cup) 10 ml Q4H PRN PO COUGH Last administered on 10/01/16 20:24; Admin Dose 10 ML; Start 09/02/16 at 14:00 Allopurinol (Zyloprim) 300 mg DAILY PO Last administered on 10/17/16 09:14; Admin Dose 300 MG; Start 09/04/16 at 16:30 IV Flush (NS 10 ml) 10 ml PRN PRN IV IV PROTOCOL; Start 09/05/16 at 12:30 Bisacodyl (Dulcolax Supp) 10 mg DAILY PRN [place] CONSTIPATION; Start 09/08/16 at 12 :00 Magnesium Hydroxide (Milk Of Mag) 30 ml DAILY PRN PO CONSTIPATION Last administered on 09/09/16 06:25; Admin Dose 30 ML; Start 09/08/16 at 12:00 Polyethylene Glycol (Miralax) 17 gm DAILY PO Last administered on 10/17/16 09: 14; Admin Dose 17 GM; Start 09/08/16 at 12:00 Phenol (Cepastat Lozenge) 1 lozenge Q1H PRN [place] SORE THROAT Last administered on 09/17/16 20:16; Admin Dose 1 LOZENGE; Start 09/08/16 at 12:00 Amlodipine Besylate (Norvasc) 5 mg QHS PO Last administered on 10/16/16 20:44 ; Admin Dose 5 MG; Start 09/11/16 at 21:00 Miscellaneous Medication (Bax Susp) 30 ml QID PO Last administered on 08:27; Admin Dose 30 ML; Start 09/13/16 at 13:00 Nystatin (Nystatin Susp) 5 ml QID PO Last administered on 10/17/16 09:14; Admin Dose 5 ML; Start 09/14/16 at 17:00 Diagnostic Test (Pha) (Accucheck) 1 ea 02 XX Last administered on 10/14/16 02: 12; Admin Dose 1 EA; Start 09/23/16 at 02:00 Acetaminophen (Tylenol Supp) 650 mg Q6H PRN [place] PAIN OR TEMP ABOVE 38C Last administered on 09/23/16 18:24; Admin Dose 650 MG; Start 09/23/16 at 18:00 Al Hydrox/Mg Hydrox/Simethicone (Mag-Al Plus) 30 ml Q4 PO Last administered on 10/17/16 09:14; Admin Dose 30 ML; Start 09/25/16 at 15:00 Acetaminophen (Tylenol Tab) 650 mg Q4H PRN PO PAIN AND OR ELEVATED TEMP Last administered on 10/14/16 23:12; Admin Dose 650 MG; Start 10/09/16 at 08:30 Cyclobenzaprine HCl (Flexeril) 5 mg Q8 PRN PO MUSCLE SPASMS Last administered on 10/09/16 23:07; Admin Dose 5 MG; Start 10/09/16 at 13:00 Docusate Sodium (Colace) 100 mg BID PRN PO CONSTIPATION; Start 10/10/16 at 12: 00 Pantoprazole (Protonix Tab) 40 mg BID@06,18 PO Last administered on 10/17/16t 05:51; Admin Dose 40 MG; Start 10/16/16 at 18:00 Acetaminophen (Tylenol Tab) 650 mg ONCE PO ; Start 10/16/16 at 17:00; Stop 10/17 at 16:59 TAM ROSE Oct 17, 2016 11:59
[2016-10-17] MEDS: DIPHENHYDRAMINE 25 MG CAP PO PRN (12:49)
--- NOTE | 2016-10-17 16:38 | CONS ---
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 Pt has completed 7+3 and tolerated chemotherapy well thus far. Preliminary report of Day 14 bone marrow still shows residual disease. Given patient is too weak for re-induction chemotherapy will proceed with Vidaza, hypomethylating agent when patient counts recover. 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 Patient started on Vidaza -10/07/16. No need for repeat BMBx as would not gear changer and goal is palliative. - Thrombocytopenia is partly due to chemo and partly due to residual disease. ( Goal of Vidaza is palliative, patient would not be a good transplant or clinical trial candidate given his performance status and poor tolerance of induction chemotherapy requiring ICU admission). 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 Per primary team, plan to d/c home with home health with twice weekly CBC and transfusion if needed to be arranged by Dr. Иван Gallegos's office. Patient receiving platelet and pRBC transfusion prior to discharge. - Continue allopurinol for risk of tumor lysis for heme malignancy treatment. - Patient underwent EGD on 09/23/16 that demonstrated gastric ulcer covered by clot s/p hemoclipping, now s/p mesenteric angiogram and embolization of the left gastric artery. Hematemesis now resolved. - Patient will need to stay inpatient to await count recovery and monitor for infection, transfusions, etc. Plt goal > 50K if bleeding or procedures, > 20K if febrile, otherwise >10-20K (have been transfusing in the teens as patient is higher risk for bleeding given prior GIB). - Discussed with patient's daughter Shahla ([phone]) who was updated on situation and plan. Shahla requests commode, wheelchair, bed, etc. Problems: Consultation Date/Type/Reason Admit Date/Time Aug 31, 2016 at 00:38 Initial Consult Date 09/02/16 Type of Consultation: Hematology/Oncology Referring Provider: TAM ROSE 24 HR Interval Summary Free Text/Dictation No complaints. Patient receiving platelet and pRBC transfusions and then will go home tonight or tomorrow. He states that he feels less dizzy today. Exam/Review of Systems Vital Signs Vitals Vital Signs Date Time Temp Pulse Resp B/P Pulse Ox O2 Delivery O2 Flow Rate FiO2 10/17/16 13:30 98.4 79 20 147/75 100 Room Air Intake and Output 10/16/16 10/16/16 10/17/16 15:00 23:00 07:00 Intake Total 1060 ml 1950 ml Output Total 2000 ml Balance 1060 ml -50 ml Exam Exam Constitutional: alert, oriented Psych: no complaints Head: atraumatic, normocephalic Neck: supple Respiratory: clear to auscultation Cardiovascular: regular rate and rhythm Gastrointestinal: non-tender, soft Musculoskeletal: nl extremities to inspection Results Result Diagram: 10/17/16 0450 10/14/16 0440 Results 24 hrs Laboratory Tests Test 10/16/16 17:48 10/16/16 20:46 10/17/16 04:50 10/17/16 08:21 Bedside Glucose 174 146 142 Band Neutrophils % 1.0 Basophils # 0.1 Basophils % 2.0 Blast Cells % 27.0 H Blastocytes # 0.8 Eosinophils # 0.0 Eosinophils % 1.0 Hematocrit 22.0 L Hemoglobin 7.5 L Lymphocytes # 0.9 Lymphocytes % 32.0 Mean Corpuscular Hemoglobin 28.7 L Mean Corpuscular Hemoglobin Concent 34.1 Mean Corpuscular Volume 84.3 Mean Platelet Volume 10.2 # Metamyelocytes # 0.1 Metamyelocytes % 2.0 H Monocytes # 0.8 Monocytes % 26.0 H Myelocytes # 0.1 Myelocytes % 4.0 H Neutrophils # 0.1 L Neutrophils % 4.0 L Nucleated Red Blood Cells % 4.0 H Platelet Count 9 #*L Platelet Estimate PLT APPEAR DECREASED Promyelocytes # 0.0 Promyelocytes % 1.0 H Red Blood Count 2.61 L Red Cell Distribution Width 13.8 White Blood Count 2.9 L Test 10/17/16 12:15 Bedside Glucose 169 Medications Medications Current Medications Miscellaneous Information 1 ea NOTE XX ; Start 08/31/16 at 02:00 Glucose (Glutose) 15 gm Q15M PRN PO DECREASED GLUCOSE; Start 08/31/16 at 02:00 Glucose (Glutose) 22.5 gm Q15M PRN PO DECREASED GLUCOSE; Start 08/31/16 at 02:00 Dextrose (D50w Syringe) 25 ml Q15M PRN IV DECREASED GLUCOSE Last administered on 09/25/16 12:29; Admin Dose 25 ML; Start 08/31/16 at 02:00 Dextrose (D50w Syringe) 50 ml Q15M PRN IV DECREASED GLUCOSE; Start 08/31/16 at 02:00 Glucagon (Glucagen) 1 mg Q15M PRN IM DECREASED GLUCOSE; Start 08/31/16 at 02:00 Glucose (Glutose) 15 gm Q15M PRN BUCCAL DECREASED GLUCOSE; Start 08/31/16 at 02: 00 Fluticasone Propionate (Flonase 0.05% Nasal) 2 spray DAILY NASAL Last administered on 10/09/16 08:42; Admin Dose 2 SPRAY; Start 08/31/16 at 09:00 Ondansetron HCl (Zofran Inj) 4 mg Q6H PRN IV NAUSEA AND/OR VOMITING Last administered on 10/02/16 09:20; Admin Dose 4 MG; Start 09/01/16 at 11:30 Diphenhydramine HCl (Benadryl) 25 mg Q6H PRN PO ITCHING Last administered on 12:49; Admin Dose 25 MG; Start 09/01/16 at 11:30 Guaifenesin/ Dextromethorphan (Robitussin Dm Liquid Cup) 10 ml Q4H PRN PO COUGH Last administered on 10/01/16 20:24; Admin Dose 10 ML; Start 09/02/16 at 14:00 Allopurinol (Zyloprim) 300 mg DAILY PO Last administered on 10/17/16 09:14; Admin Dose 300 MG; Start 09/04/16 at 16:30 IV Flush (NS 10 ml) 10 ml PRN PRN IV IV PROTOCOL; Start 09/05/16 at 12:30 Bisacodyl (Dulcolax Supp) 10 mg DAILY PRN [place] CONSTIPATION; Start 09/08/16 at 12 :00 Magnesium Hydroxide (Milk Of Mag) 30 ml DAILY PRN PO CONSTIPATION Last administered on 09/09/16 06:25; Admin Dose 30 ML; Start 09/08/16 at 12:00 Polyethylene Glycol (Miralax) 17 gm DAILY PO Last administered on 10/17/16 09: 14; Admin Dose 17 GM; Start 09/08/16 at 12:00 Phenol (Cepastat Lozenge) 1 lozenge Q1H PRN [place] SORE THROAT Last administered on 09/17/16 20:16; Admin Dose 1 LOZENGE; Start 09/08/16 at 12:00 Amlodipine Besylate (Norvasc) 5 mg QHS PO Last administered on 10/16/16 20:44 ; Admin Dose 5 MG; Start 09/11/16 at 21:00 Miscellaneous Medication (Bax Susp) 30 ml QID PO Last administered on 12:37; Admin Dose 30 ML; Start 09/13/16 at 13:00 Nystatin (Nystatin Susp) 5 ml QID PO Last administered on 10/17/16 12:37; Admin Dose 5 ML; Start 09/14/16 at 17:00 Diagnostic Test (Pha) (Accucheck) 1 ea 02 XX Last administered on 10/14/16 02: 12; Admin Dose 1 EA; Start 09/23/16 at 02:00 Acetaminophen (Tylenol Supp) 650 mg Q6H PRN [place] PAIN OR TEMP ABOVE 38C Last administered on 09/23/16 18:24; Admin Dose 650 MG; Start 09/23/16 at 18:00 Al Hydrox/Mg Hydrox/Simethicone (Mag-Al Plus) 30 ml Q4 PO Last administered on 10/17/16 09:14; Admin Dose 30 ML; Start 09/25/16 at 15:00 Acetaminophen (Tylenol Tab) 650 mg Q4H PRN PO PAIN AND OR ELEVATED TEMP Last administered on 10/14/16 23:12; Admin Dose 650 MG; Start 10/09/16 at 08:30 Cyclobenzaprine HCl (Flexeril) 5 mg Q8 PRN PO MUSCLE SPASMS Last administered on 10/09/16 23:07; Admin Dose 5 MG; Start 10/09/16 at 13:00 Docusate Sodium (Colace) 100 mg BID PRN PO CONSTIPATION; Start 10/10/16 at 12: 00 Pantoprazole (Protonix Tab) 40 mg BID@,18 PO Last administered on 10/17/16t 05:51; Admin Dose 40 MG; Start 10/16/16 at 18:00 Acetaminophen (Tylenol Tab) 650 mg ONCE PO ; Start 10/16/16 at 17:00; Stop 10/17 at 16:59 TOROMA MD Oct 17, 2016 16:38
[2016-10-17] MEDS: AMLODIPINE 5 MG TAB PO SCH (20:43)
[2016-10-18] MEDS: AL HYDROX/MG HYDROX/SIMETH 30 ML CUP PO SCH ×4 (01:00→13:13)
[2016-10-18] MEDS: ACCUCHECK XX SCH (02:00)
[2016-10-18] MEDS: PANTOPRAZOLE (EC) 40 MG TAB PO SCH (06:26)
[2016-10-18] MEDS: SUCRALFATE 1 GM TAB PO SCH ×2 (06:26→13:13)
[2016-10-18 07:40] VITALS: BP 135/67; RESP 17
[2016-10-18] MEDS: INSULIN ASPART [NOVOLOG] 3 ML PEN SC SCH ×2 (07:50→13:15)
[2016-10-18] MEDS: FLUTICASONE 0.05% 16 GM NAS SPRAY NASAL SCH (09:00)
[2016-10-18] MEDS: metFORMIN 500 MG TAB PO SCH (09:05)
[2016-10-18] MEDS: POLYETHYLENE GLYCOL 17 GM PACKET PO SCH (09:05)
[2016-10-18] MEDS: ALLOPURINOL 300 MG TAB PO SCH (09:05)
[2016-10-18] MEDS: DIPHENHYD PO SCH ×2 (09:06→13:00)
[2016-10-18] MEDS: LIDO PO SCH ×2 (09:06→13:00)
[2016-10-18] MEDS: NYSTATIN SUSP 5 ML CUP PO SCH ×2 (09:06→13:13)
[2016-10-18] MEDS: MYLANTA PO SCH ×2 (09:06→13:00)
--- NOTE | 2016-10-18 10:03 | DS ---
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 Rona Castro. PRIMARY ONCOLOGIST: Иван Gallegos MD CHIEF COMPLAINT ON ADMISSION: Abnormal hemoglobin and dizziness. HISTORY OF PRESENT ILLNESS: 71-year-old man with diabetes and chronic myelomonocytic leukemia under active treatment who presented the night prior to admission for dizziness. He has had multiple similar presentations for severe anemia, most recently in May and June 2016. For two days he had difficultly eating or drinking, with nausea and emesis. During his last hospitalization, there was a clinical suspicion of diabetic gastroparesis. In early June he was admitted with similar symptoms and given 3 units of packed red blood cells with hemoglobin up to 10 at the time of discharge home. He complained of sore throat today, with some difficulty swallowing but no coughing or choking. He denied any headache, visual change, chest pain, persistent nausea, or abdominal pain. ALLERGIES: NO KNOWN ALLERGIES. PAST MEDICAL HISTORY: 1. Chronic myelomonocytic leukemia, currently on chemotherapy. 2. Pancytopenia and anemia secondary to #1. 3. Diabetes mellitus. 4. Diabetic neuropathy. 5. Diabetic gastroparesis. 6. Chronic benign positional vertigo which is exacerbated when he is severely anemic. 7. Hypertension. 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 Patient has completed 7+3 and tolerated chemotherapy well thus far. A day 14 bone marrow showed residual disease, and since the patient was too weak for re-induction chemotherapy he was treated with Vidaza (10/01/16 - 10/07/16). The family understood that the goal of Vidaza was palliative, and that the patient would not be a good transplant or clinical trial candidate given his performance status and poor tolerance of induction chemotherapy. He remained as an inpatient because of his transfusion dependence. He underwent EGD on 09/23/16 that demonstrated gastric ulcer covered by clot s/p hemoclipping. He underwent mesenteric angiogram and embolization of the left gastric artery. His diabetes was under good control in the hospital, with insulin supplementation until the time of discharge -- when his metformin was resumed. His benign vertigo was treated as needed with meclizine. Hypertension controlled with amlodipine. Plan is to discharge home today with home health with twice weekly CBC and transfusion if needed to be arranged by Dr. Иван Gallegos's office. His PICC line will be left in place, with home health and heparin flush to maintain. He will continue allopurinol for risk of tumor lysis from heme malignancy treatment. Discussed this morning with the patient's daughter Shahla ) who was updated on situation and plan. Shahla requests commode, wheelchair , and shower chair. Home Meds Active Scripts Metformin* (Glucophage*) 500 Mg Tab, 500 MG PO WITH BREAKFAST DINNE for 30 Days , TAB 3 Refills Prov:TAM ROSE 10/16/16 Pantoprazole* (Protonix*) 40 Mg Tablet.dr, 40 MG PO BID for 30 Days, TAB 3 Refills Prov:TAM ROSE 10/16/16 Amlodipine Besylate* (Amlodipine Besylate*) 5 Mg Tablet, 5 MG PO QHS, #30 TAB 3 Refills Prov:MILTONTAM 10/16/16 Reported Medications Ondansetron Hcl* (Zofran*) 8 Mg Tab, 8 MG PO TID Y for NAUSEA AND OR VOMITING, TAB 06/25/16 Levocetirizine Dihydrochloride (Xyzal) 5 Mg Tablet, 5 MG PO DAILY, TAB 06/25/16 Sucralfate* (Carafate*) 1 Gm Tab, 1 GM PO AC MEALS AND BEDTIME, TAB 06/25/16 Mometasone Furoate* (Nasonex*) 50 Mcg/[place] - 17 Gm [place].pump, 1 SPRAY NASAL BID, #1 BOTTLE IN EACH NOSTRIL 02/13/16 Discontinued Reported Medications Lidocaine (LIDOCAINE) 35.44 Gm Oint...g., 35.44 GM TP TID, #1 TUB 06/25/16 Esomeprazole Mag Trihydrate (Nexium) 40 Mg Capsule.dr, 40 MG PO DAILY, #30 CAP 06/25/16 Canagliflozin/Metformin HCl (Invokamet 50-1,000 mg Tablet) 1 Each Tablet, 1 EACH PO WITH BREAKFAST DINNE, #60 TAB 02/13/16 Follow-up Plan Dr. Gallegos in the next week Pending Labs Laboratory Tests Test 10/17/16 12:15 10/17/16 18:11 10/17/16 20:41 10/18/16 07:55 Bedside Glucose 169mg/dL (70-220) 132mg/dL (70-220) 127mg/dL (70-220) 129mg/dL (70-220) Copies To: CC: TAM ROSE; TO,LYNNETTE Bass MD; MISHA FOREMAN M.D., JOHN P. M.D. Oct 18, 2016 10:03
[2016-10-18] MEDS ORDERED: HEPARIN (100 UNITS/ML) 5 ML SYG CATHETER ONE (12:00)
== END 2016-10-18 14:25 | disposition home health service (06) | DRG 834 ==
LOC: E/R 19:49 → TEL 08-31 00:38 → MS1 09-03 14:57 → ICU 09-24 12:59 → MS4 09-25 18:35 → MS1 10-01 01:00
PROVIDERS: ADMIT Internal Medicine; ATTEND Internal Medicine
PROC: 30233N1 Transfusion of Nonautologous Red Blood Cells into Peripheral Vein, Percutaneous Approach (ICD-10-PCS; 2016-08-31)
PROC: 30233R1 Transfusion of Nonautologous Platelets into Peripheral Vein, Percutaneous Approach (ICD-10-PCS; 2016-09-02)
PROC: 07DR3ZX Extraction of Iliac Bone Marrow, Percutaneous Approach, Diagnostic (ICD-10-PCS; 2016-09-04)
PROC: 02HV33Z Insertion of Infusion Device into Superior Vena Cava, Percutaneous Approach (ICD-10-PCS; 2016-09-05)
PROC: 3E03305 Introduction of Other Antineoplastic into Peripheral Vein, Percutaneous Approach (ICD-10-PCS; 2016-09-05)
PROC: 0W3P8ZZ Control Bleeding in Gastrointestinal Tract, Via Natural or Artificial Opening Endoscopic (ICD-10-PCS; 2016-09-23)
PROC: B4041ZZ Plain Radiography of Superior Mesenteric Artery using Low Osmolar Contrast (ICD-10-PCS; 2016-09-24)
PROC: 04L23DZ Occlusion of Gastric Artery with Intraluminal Device, Percutaneous Approach (ICD-10-PCS; principal; 2016-09-24 16:30)
DX: C92.50 Acute myelomonocytic leukemia, not having achieved remission (principal); K25.4 Chronic or unspecified gastric ulcer with hemorrhage; D61.810 Antineoplastic chemotherapy induced pancytopenia; K92.0 Hematemesis; K31.84 Gastroparesis; D70.9 Neutropenia, unspecified; E11.40 Type 2 diabetes mellitus with diabetic neuropathy, unspecified; E87.1 Hypo-osmolality and hyponatremia; N39.0 Urinary tract infection, site not specified; E87.8 Other disorders of electrolyte and fluid balance, not elsewhere classified; E86.0 Dehydration; Z79.4 Long term (current) use of insulin; H81.10 Benign paroxysmal vertigo, unspecified ear; K21.9 Gastro-esophageal reflux disease without esophagitis; J06.9 Acute upper respiratory infection, unspecified; E11.43 Type 2 diabetes mellitus with diabetic autonomic (poly)neuropathy; R51 Headache; C93.10 Chronic myelomonocytic leukemia not having achieved remission; K12.30 Oral mucositis (ulcerative), unspecified; R13.10 Dysphagia, unspecified; Q99.8 Other specified chromosome abnormalities; B96.1 Klebsiella pneumoniae [K. pneumoniae] as the cause of diseases classified elsewhere; R50.81 Fever presenting with conditions classified elsewhere
CPT/HCPCS: 36415; 36430; 36569; 70450; 71010; 75625; 76937; 77012; 80048; 80053; 80076; 81001; 81003; 82270; 82962; 83010; 83036; 83605; 83615; 83735; 84100; 84484; 84560; 85025; 85362; 85384; 85610; 85730; 86644; 86850; 86900; 86901; 86920; 86945; 87040; 87081; 87086; 88305; 88313; 88341; 88342; 93005; 96374; 96375; 97110; 97116; 97162; 97164; 97166; 97530; J1940; J9100; C1760; C1769; C1887; C1894; C9113; J0692; J1642; J1815; J1956; J2250; J2405; J3010; J3370; J3475; J3480; J7030; J7040; J7042; J7050; J9025; P9011; P9016; P9035; Q9967

== ENCOUNTER 2016-11-11 17:03 | Emergency (ER) | payer OTHER, MEDICAID ==
[~2016-11-11] VITALS: Ht 165.1 cm; Wt 57.8 kg
[~2016-11-11 17:03] MED LIST changes: +AMLO-145 PO; -CANA1TAB2 PO; -ESOM40CA PO; -LIDO5OI35 TP; +METF500T4 PO; +PANT40TA3 PO
[2016-11-11] MEDS ORDERED: SOD CHLORIDE 0.9% 500 ML IV STA (22:50)
[2016-11-11 23:26] LABS: ABNORMAL IP MESSAGE 1; ADD SCAN DIFF NO; HEMATOCRIT 23.8 % (42.0-52.0); HEMOGLOBIN 7.9 g/dl (14.0-18.0); MEAN CORPUSCULAR HEMOGLOBIN 28.1 pg (29.0-33.0); MEAN CORPUSCULAR HGB CONC 33.2 g/dl (32.0-37.0); MEAN CORPUSCULAR VOLUME 84.7 fl (82.0-101.0); RED BLOOD COUNT 2.81 10^6/ul (4.70-6.10); RETICULOCYTE COUNT % 1.3 % (0.5-1.5); WHITE BLOOD COUNT 3.8 10^3/ul (4.8-10.8)
--- NOTE | 2016-11-11 23:37 | RADRPT ---
PROCEDURE: XR Chest. CLINICAL INDICATION: Dyspnea. TECHNIQUE: Single frontal view of the chest was obtained COMPARISON: 09/24/2016. FINDINGS: Changes of pulmonary fibrosis throughout the bilateral lungs, without significant global climate change analyst interv al. Cardiomegaly. Previously seen nasogastric tube is removed. There is no pleural effusion or pneumothorax. Consider CT correlation. IMPRESSION: Extensive pulmonary fibrosis, without significant global climate change analyst interval. RPTAT: [facility] Physician Karlee Date Time Electronically viewed and signed by Fredrick Lorenzo Physician on 11/11/2016 23:37 RS/
[2016-11-11 23:41] LABS: PLATELET COUNT 4 10^3/UL (140-415)
[2016-11-11 23:43] LABS: ALBUMIN 3.8 g/dl (3.3-4.9)
[2016-11-11 23:44] LABS: POTASSIUM 4.6 mmol/L (3.5-5.1)
[2016-11-11 23:46] LABS: ALBUMIN/GLOBULIN RATIO 0.84; BILIRUBIN,INDIRECT 0.4 mg/dl (0-1.1); BILIRUBIN,TOTAL 0.4 mg/dl (0.2-1.3); CALCIUM 8.8 mg/dl (8.4-10.2); CREATININE 0.58 mg/dl (0.61-1.24); TOTAL PROTEIN 8.3 g/dl (6.1-8.1)
[2016-11-11 23:55] LABS: TROPONIN-I 0.015 ng/ml (0.00-0.12)
--- NOTE | 2016-11-12 00:37 | ERA ---
ER Documentation Chief Complaint Date/Time DATE: 11/12/16 TIME: 00:36 Chief Complaint sent by pcp for low platelet and lab result, weak shortness of breath HPI This is a 71-year-old male sent by PCP for having low platelets. Patient has history of acute myeloblastic leukemia. Last transfusion was 4 weeks ago. Patient is known to be in blast crisis. ROS All systems reviewed and are negative except as per history of present illness. Medications Home Meds Active Scripts Metformin* (Glucophage*) 500 Mg Tab, 500 MG PO WITH BREAKFAST DINNE for 30 Days , TAB 3 Refills Prov:MILTONStefanieBelloKEISHA Huang 10/16/16 Pantoprazole* (Protonix*) 40 Mg Tablet.dr, 40 MG PO BID for 30 Days, TAB 3 Refills Prov:MILTON,NBelloKEISHA 10/16/16 Amlodipine Besylate* (Amlodipine Besylate*) 5 Mg Tablet, 5 MG PO QHS, #30 TAB 3 Refills Prov:MILTON,NBelloKEISHA Huang 10/16/16 Reported Medications Ondansetron Hcl* (Zofran*) 8 Mg Tab, 8 MG PO TID Y for NAUSEA AND OR VOMITING, TAB 06/25/16 Levocetirizine Dihydrochloride (Xyzal) 5 Mg Tablet, 5 MG PO DAILY, TAB 06/25/16 Sucralfate* (Carafate*) 1 Gm Tab, 1 GM PO AC MEALS AND BEDTIME, TAB 06/25/16 Mometasone Furoate* (Nasonex*) 50 Mcg/[place] - 17 Gm [place].pump, 1 SPRAY NASAL BID, #1 BOTTLE IN EACH NOSTRIL 02/13/16 Allergies Allergies: Coded Allergies: No Known Allergy (Unverified , 09/29/16) PMhx/Soc History of Surgery: Yes (LEFT EYE SX) Anesthesia Reaction: No Hx Neurological Disorder: No Hx Respiratory Disorders: No Hx Cardiac Disorders: Yes (HTN) Hx Psychiatric Problems: No Hx Miscellaneous Medical Probl: Yes (BPV, GERD, hyponatremia, DM/neuropathy, leukemia) Hx Alcohol Use: No Hx Substance Use: No Hx Tobacco Use: No Smoking Status: Never smoker Physical Exam Vitals Vital Signs Date Time Temp Pulse Resp B/P Pulse Ox O2 Delivery O2 Flow Rate FiO2 11/11/16 17:22 98.2 90 19 128/65 100 Physical Exam Const: [] Head: Atraumatic Eyes: Normal Conjunctiva ENT: Normal External Ears, Nose and Mouth. Neck: Full range of motion..~ No meningismus. Resp: Clear to auscultation bilaterally Cardio: Regular rate and rhythm, no murmurs Abd: Soft, non tender, non distended. Normal bowel sounds Skin: No petechiae or rashes Back: No midline or flank tenderness Ext: No cyanosis, or edema Neur: Awake and alert Psych: Normal Mood and Affect Result Diagram: 11/11/16231311/11/162313 Results 24 hrs Laboratory Tests Test 11/11/16 23:14 Absolute Reticulocyte Count 0.038X10^6 Alanine Aminotransferase (ALT/SGPT) 21IU/L Albumin 3.8g/dl Albumin/Globulin Ratio 0.84 Alkaline Phosphatase 95IU/L Anion Gap 16 Aspartate Amino Transf (AST/SGOT) 19IU/L B-Type Natriuretic Peptide Pending Blood Urea Nitrogen 11mg/dl Calcium Level 8.8mg/dl Carbon Dioxide Level 29mmol/L Chloride Level 92mmol/L Creatinine 0.58mg/dl Direct Bilirubin 0.00mg/dl Ferritin Pending Globulin 4.50g/dl Glucose Level 141mg/dl Hematocrit 23.8% Hemoglobin 7.9g/dl Indirect Bilirubin 0.4mg/dl Lactate Dehydrogenase 436IU/L Lymphocytes # 10^3/ul Lymphocytes % % Mean Corpuscular Hemoglobin 28.1pg Mean Corpuscular Hemoglobin Concent 33.2g/dl Mean Corpuscular Volume 84.7fl Mean Platelet Volume fl Monocytes # 10^3/ul Monocytes % % Neutrophils # 10^3/ul Neutrophils % % Percent Reticulocyte Count 1.3% Platelet Count 410^3/UL Potassium Level 4.6mmol/L Red Blood Count 2.8110^6/ul Red Cell Distribution Width 14.0% Sodium Level 132mmol/L Total Bilirubin 0.4mg/dl Total Protein 8.3g/dl Troponin I 0.015ng/ml White Blood Count 3.810^3/ul Current Medications Medications (Trade) Dose Ordered Sig/Ravi Route PRN Reason Start Time Stop Time Status Last Admin Dose Admin Sodium Chloride (NS) 500 ml @ 500 mls/hr Q1H STAT IV 11/11/16 22:50 11/11/16 23:49 DC 11/11/16 23:42 Procedures/MDM Chest X-ray 1V Interpreted by me: Soft Tissue: No acute abnormalities Bones: No acute abnormalities Mediastinum/Cardiac Silhouette/Lungs: No acute abnormalities chronic fibrosis EKG: Rate/Rhythm: Normal Sinus Rhythm QRS, ST, T-waves: No changes consistent w/ acute ischemia Impression: No evidence of ischemia or arrhythmia Medical decision-makin-year-old male with acute severe thrombocytopenia. Platelet transfusion has been ordered. Patient will be admitted to the [facility] physician. Physician accepted at 1215 Departure Diagnosis: Primary Impression: Thrombocytopenia Condition: Serious BC BEYER Nov 12, 2016 00:37
[2016-11-12 00:46] VITALS: PULSE 95
[2016-11-12 01:14] VITALS: Ht 165.1 cm; Wt 57.8 kg
[2016-11-12 01:34] VITALS: BP 147/67; RESP 20
[2016-11-12] MEDS ORDERED: ONDANSETRON 4 MG INJ IV PRN (02:30)
[2016-11-12] MEDS ORDERED: ACETAMINOPHEN 325 MG TAB PO PRN (02:30)
[2016-11-12] MEDS ORDERED: GLUCOSE GEL 15 GRAM TUBE BUCCAL PRN (02:37)
[2016-11-12] MEDS ORDERED: DEXTROSE 50% 50 ML SYRINGE IV PRN ×2 (02:37)
[2016-11-12] MEDS ORDERED: GLUCAGON 1 MG INJ IM PRN (02:37)
[2016-11-12] MEDS ORDERED: GLUCOSE GEL 15 GRAM TUBE PO PRN ×2 (02:37)
[2016-11-12 02:59] LABS: EOSINOPHILS # 0.1 10^3/ul (0.0-0.5); LYMPHOCYTES # 1.7 10^3/ul (0.8-2.9); MONOCYTE # 1.8 10^3/ul (0.3-0.9); NEUTROPHIL # 0.2 10^3/ul (1.6-7.5)
[2016-11-12 03:00] LABS: PLATELET ESTIMATE PLT APPEAR DECREASED
[2016-11-12] MEDS: PANTOPRAZOLE (EC) 40 MG TAB PO SCH ×2 (07:01→17:41)
[2016-11-12 07:44] VITALS: BP 137/70; RESP 20
[2016-11-12] MEDS: INSULIN ASPART [NOVOLOG] 3 ML PEN SC SCH ×4 (08:03→21:00)
[2016-11-12] MEDS ORDERED: SOD CHLORIDE 0.9% 250 ML IV* ONE (09:06)
[2016-11-12] MEDS ORDERED: FUROSEMIDE 20 MG INJ IV SCH (09:30)
--- NOTE | 2016-11-12 13:12 | HP ---
DATE OF ADMISSION: 11/12/2016 PRIMARY CARE ONCOLOGIST: Dr. Иван Gallegos. CHIEF COMPLAINT ON ADMISSION: Abnormal labs with low platelets. HISTORY OF PRESENT ILLNESS: This is a 71-year-old male with history of acute myelogenous leukemia w ith blast crisis, status post chemotherapy induction and palliative with unfortunately no remission and not much of improvement of his acute myelogenous leukemia. His latest CBC approximately 2 weeks ago did show blast again in the peripheral smear. He has had multiple transfusions of packed red b lood cells and platelets as an outpatient already. He had a discussion with family and previous doc tors along with oncology has been placed on hospice at home. Apparently, his blood was still drawn sometime this week and he was found to have significant thrombocytopenia with platelets of 6. They g ave the choice to the patient. The patient decided he wanted to come to the hospital. Here he is f ound to have a platelet of 4 and hemoglobin of 7.9. He has received 2 units of platelets overnight. He is being typed and crossed for blood transfusion. This is more for comfort. Unfortunately, he has multiple antibodies and the blood needs to be brought in from [place]. I have talked to his daughter and also to the patient and explaining to him that unfortunately not only he has bone marro w suppression, but also has not been in remission and still with acute myelogenous leukemia, which i s at this point incurable and no hope for remission, therefore, very poor prognosis. I have talked to the daughter and told her that after this round of blood transfusion I will recommend for hematol ogy/oncology not to check the blood anymore and just have the patient comfortable. He is agreeable with it. The patient himself is just processing the information. He remains hemodynamically stable here. His appetite has been moderate. He is a little more scared to the news of the fact that his leukemia has not been in remission and there is no further treatment that can be offered. After bl ood transfusion in the next 24 hours plan is to discharge him back home on hospice and the daughter is agreeable. Currently, he denies any fevers, chills, nausea or vomiting. He does have generalize d weakness, probably related to his anemia and thrombocytopenia. He has some petechia noted during exam. ALLERGIES: NO KNOWN ALLERGIES. PAST MEDICAL HISTORY: 1. Acute myelogenous leukemia. No remission. Still with blast on the peripheral smear with bone m arrow supression also. 2. Acute on chronic anemia, transfusion dependent. 3. Acute on chronic severe thrombocytopenia, transfusion dependent. 4. Diabetes mellitus. 5. Diabetic gastroparesis. 6. Diabetic neuropathy. 7. Hypertension. PAST SURGICAL HISTORY: Status post bone marrow biopsies at least twice. SOCIAL HISTORY: The patient lives with family. Currently, he is on hospice at home and signed off overnight to get blood transfusions. OUTPATIENT MEDICATIONS: 1. Vivelle 5 mg p.o. daily. 2. Amlodipine 5 mg p.o. at bedtime. 3. Nasonex 1 spray p.o. b.i.d. 4. Zofran 8 mg p.o. t.i.d. p.r.n. nausea, vomiting. 5. Protonix 40 mg p.o. b.i.d. 6. Carafate 1 gram p.o. q.a.c. and bedtime. 7. Metformin 500 mg p.o. b.i.d. REVIEW OF SYSTEMS: As per HPI. PHYSICAL EXAMINATION: VITAL SIGNS: Temperature is 97.2, heart rate of 76, respiratory rate 20, blood pressure 137/70, the patient is saturating 98% on room air. GENERAL: He is alert and oriented x4. He is in no specific distress, just generalized weakness and currently a little bit anxious to the news of his poor prognosis and ongoing blast crisis and acute myelogenous leukemia. HEENT: Pupils are equally round and reactive to light. Extraocular muscles are intact. Anicteric sclerae. NECK: No JVD, no thyromegaly. HEART: Regular rate and rhythm. LUNGS: Clear to auscultation bilaterally. ABDOMEN: Soft, nontender, nondistended. Bowel sounds are present. EXTREMITIES: No edema, clubbing or cyanosis, but he is noted to have petechia throughout his upper extremities and lower extremities. NEUROLOGIC: Grossly intact. LABORATORY DATA: White blood cell count today is 3.8, hemoglobin 7.9, hematocrit 23.8, platelet cou nt of 4. This is on presentation, he is status post 2 units of platelets, labs are pending. Chemis try with a sodium of 132, potassium 4.6, chloride 92, bicarbonate 29, BUN 11, creatinine 0.58, gluco se 141 and glucose 228. LFTs are within normal. LDH of 436. BNP of 296. RADIOLOGICAL DATA: Chest x-ray shows extensive pulmonary fibrosis. ASSESSMENT AND PLAN: This is a 71-year-old male with: 1. Acute myelogenous leukemia. Unfortunately, he failed all treatment so far. He still has ongoin g disease, never been in remission and now also bone marrow suppression with anemia, transfusion dep endent and thrombocytopenia, transfusion dependent. He is on hospice at this point. Again, he did receive 2 units of platelets. He will be receiving 2 units of packed red blood cells. Discharge robert k to hospice. No further labs to be drawn. This is per my recommendation and the daughter does agr ee. We will make sure that also oncology is aware. The patient himself is aware of his very poor pr ognosis. 2. Diabetes mellitus. Currently, he is on a diabetic diet. We will resume his metformin as tolerat ed. 3. Hypertension. Resume Norvasc for now. 4. Prophylaxis. Proton pump inhibitors for GI prophylaxis and SCDs for DVT prophylaxis. DISPOSITION: The patient is on observation. He is to be discharged back to hospice in the next 24 hours after packed red blood cell transfusion. Dictated By: TAM DANGELO/MALIK Conf#: [id number] DID#: [id number]
[2016-11-12] MEDS: SUCRALFATE 1 GM TAB PO SCH ×2 (17:41→21:29)
[2016-11-12] MEDS: metFORMIN 500 MG TAB PO SCH (17:42)
[2016-11-12 20:12] VITALS: BP 154/64; RESP 18
[2016-11-12] MEDS ORDERED: AMLODIPINE 5 MG TAB PO SCH (21:00)
[2016-11-13] MEDS ORDERED: ACCU-CHEK XX SCH (02:00)
[2016-11-13] MEDS: PANTOPRAZOLE (EC) 40 MG TAB PO SCH (06:07)
[2016-11-13 07:26] VITALS: BP 134/63; RESP 18
[2016-11-13] MEDS: INSULIN ASPART [NOVOLOG] 3 ML PEN SC SCH ×2 (08:15→12:38)
[2016-11-13] MEDS: SUCRALFATE 1 GM TAB PO SCH ×2 (08:26→12:35)
[2016-11-13] MEDS: metFORMIN 500 MG TAB PO SCH (08:27)
--- NOTE | 2016-11-13 10:43 | PN ---
Date/Time of Note Date/Time of Note DATE: 11/13/16 TIME: 10:40 Assessment/Plan VTE Prophylaxis VTE Prophylaxis Intervention: SCD's Lines/Catheters IV [facility] [place] Assessment/Plan Assessment/Plan 71-year-old male with: 1. Acute myelogenous leukemia. Unfortunately, he failed all treatment so far. He still has ongoing disease, never been in remission and now also bone marrow suppression with anemia, transfusion dependent and thrombocytopenia, transfusion dependent. Discharge back Home on Hospice today, daughter Tawny sotomayor Need to stop routine blood draw preferably We will make sure that also oncology is aware. The patient himself is aware of his very poor prognosis. 2. Diabetes mellitus. Currently, he is on a diabetic diet. We will resume his metformin as tolerated at discharge. 3. Hypertension. Continue Norvasc. 4. GERD/PUD: continue PPI bid Prophylaxis. Proton pump inhibitors for GI prophylaxis and SCDs for DVT prophylaxis. DISPOSITION: Discharged back home on hospice today. Subjective 24 Hr Interval Summary Free Text/Dictation Patient remains stable and s/p 2 units pRBC and 2 units platelets Feels better Unfortunately with AML and bone marrow suppression post chemo. Transfusion dependent Now on Hospice and to be d/c'd back to Home with Hospice Exam/Review of Systems Vital Signs Vitals Vital Signs Date Time Temp Pulse Resp B/P Pulse Ox O2 Delivery O2 Flow Rate FiO2 11/13/16 07:26 98.8 69 18 134/63 99 11/12/16 00:46 Room Air Intake and Output 11/12/16 11/12/16 11/13/16 15:00 23:00 07:00 Intake Total 200 ml 1870 ml 1380 ml Output Total 1450 ml 2800 ml Balance 200 ml 420 ml -1420 ml Exam Constitutional: alert, frail, oriented Respiratory: clear to auscultation, normal air movement Cardiovascular: nl pulses, regular rate and rhythm Gastrointestinal: non-tender, soft Musculoskeletal: nl extremities to inspection Extremities: normal pulses, other (no edema, clubbing or cyanosis ) Neurological: SMOKED MEAT [employer]PARER II-XII intact, nl mental status, nl speech, other ( generalised weakness ) Skin: other (petichiea) Results Result Diagram: 11/11/16 8895 11/11/161 Results 24 hrs Laboratory Tests Test 11/12/16 11:44 11/12/16 17:28 11/12/16 21:28 11/13/16 07:48 Bedside Glucose 228 H 119 158 135 Medications Medications Current Medications Acetaminophen (Tylenol Tab) 650 mg Q6H PRN PO PAIN AND OR ELEVATED TEMP; Start 11/12/16 at 02:30 Ondansetron HCl (Zofran Inj) 4 mg Q6H PRN IV NAUSEA AND/OR VOMITING; Start at 02:30 Pantoprazole (Protonix Tab) 40 mg BID@,18 PO Last administered on 11/13/16 06:07; Admin Dose 40 MG; Start 11/12/16 at 06:00 Diagnostic Test (Pha) (Accucheck) 1 ea 02 XX ; Start 11/13/16 at 02:00 Miscellaneous Information 1 ea NOTE XX ; Start 11/12/16 at 02:37 Glucose (Glutose) 15 gm Q15M PRN PO DECREASED GLUCOSE; Start 11/12/16 at 02:37 Glucose (Glutose) 22.5 gm Q15M PRN PO DECREASED GLUCOSE; Start 11/12/16 at 02: 37 Dextrose (D50w Syringe) 25 ml Q15M PRN IV DECREASED GLUCOSE; Start 11/12/16 at 02:37 Dextrose (D50w Syringe) 50 ml Q15M PRN IV DECREASED GLUCOSE; Start 11/12/16 at 02:37 Glucagon (Glucagen) 1 mg Q15M PRN IM DECREASED GLUCOSE; Start 11/12/16 at 02:37 Glucose (Glutose) 15 gm Q15M PRN BUCCAL DECREASED GLUCOSE; Start 11/12/16 at 02 :37 Amlodipine Besylate (Norvasc) 5 mg QHS PO Last administered on 11/12/16 21:29 ; Admin Dose 5 MG; Start 11/12/16 at 21:00 TAM ROSE Nov 13, 2016 10:43
--- NOTE | 2016-11-13 10:52 | PDOCDIS ---
Discharge Instructions CONDITION Patient Condition: Stable HOME CARE INSTRUCTIONS: Special Diet: CARB CONTROL ACTIVITY: Activity Restrictions: Slowly Increase Activity FOLLOW UP/APPOINTMENTS Appointments Follow up with Hospice Would stop routine bi weekly blood draw while on Hospice TAM ROSE Nov 13, 2016 10:52
[2016-11-13 12:52] LABS: ADD SCAN DIFF NO
[2016-11-13 12:54] LABS: ABNORMAL IP MESSAGE 1; HEMATOCRIT 29.5 % (42.0-52.0); HEMOGLOBIN 10.2 g/dl (14.0-18.0); MEAN CORPUSCULAR HEMOGLOBIN 29.1 pg (29.0-33.0); MEAN CORPUSCULAR HGB CONC 34.6 g/dl (32.0-37.0); MEAN PLATELET VOLUME 9.2 fl (7.4-10.4); PLATELET COUNT 48 10^3/UL (140-415); RED BLOOD COUNT 3.51 10^6/ul (4.70-6.10); RED CELL DISTRIBUTION WIDTH 13.7 % (11.5-14.5); WHITE BLOOD COUNT 3.9 10^3/ul (4.8-10.8)
[2016-11-13 16:17] LABS: LYMPHOCYTES # 0.9 10^3/ul (0.8-2.9); MONOCYTE # 1.4 10^3/ul (0.3-0.9); NEUTROPHIL # 0.9 10^3/ul (1.6-7.5); PLATELET ESTIMATE PLT APPEAR DECREASED
== END 2016-11-13 15:05 | disposition home health service (06) ==
LOC: E/R 17:03 → MS2 11-12 00:17
PROVIDERS: ADMIT Internal Medicine; ATTEND Internal Medicine
DX: C92.Z0 Other myeloid leukemia not having achieved remission (principal); D69.6 Thrombocytopenia, unspecified; I10 Essential (primary) hypertension; E11.9 Type 2 diabetes mellitus without complications; K21.9 Gastro-esophageal reflux disease without esophagitis
CPT/HCPCS: 36430; 71010; 80053; 82728; 82962; 83615; 83880; 84466; 84484; 85025; 85045; 86644; 86850; 86900; 86901; 86920; 86945; 87081; 93005; 96360; 96372; 96375; 99285; G0378; J1815; J1940; J7040; P9016; P9035